=== PATIENT | female | born 1990 | race Caucasian/White ===

== ENCOUNTER 2019-11-09 17:43 | Inpatient (IN) | payer SELFPAY ==
[2019-11-09] VITALS (32 sets, daily range): BP systolic 92–124; BP diastolic 49–74; PULSE 53–90; RESP 14–22; TEMP 36.2–36.8; O2SAT 99–100; BMI 24.7
--- NOTE | 2019-11-09 20:10 | WPDANESEPP ---
Anes - Eval Pre Procedure Date/Time: 11/09/19 20:10 Pre Op Diagnosis: contractions Patient Data Age: 28 Gender: F Height: Weight: Last Vital Signs Temp 36.8 C 11/09/19 18:30 Pulse 90 11/09/19 18:30 BP 104/59 L 11/09/19 18:30 Allergies Allergy/AdvReac Type Severity Reaction Status Date / Time No Known Allergies Allergy Unverified 07/01/16 00:29 Patient hx anesthesia problems: none Family hx anesthesia problems: none Exam Day of Procedure 11/09/19 20:10 Patient weight: normal Heart: regular rate and rhythm Lungs: clear to auscultation Airway: Mallampati scale class 1 Neurological: alert and oriented
[2019-11-09] MEDS: LACTATED RINGERS 1,000 ML 125 ML IV CONT (20:20)
[2019-11-09 20:26] LABS: Basophils Absolute Auto 0.1 K/mm3 (0.0-0.1); Basophils Percent Auto 0.3 % (0.2-1.2); Eosinophils Absolute Auto 0.1 K/mm3 (0-0.3); Eosinophils Percent Auto 0.4 % (0-4.4); Hematocrit 34.6 % (37.0-47.0); Hemoglobin 11.9 g/dL (12.0-15.0); Immature Granulocyte Absolute 0.16 K/mm3 (0.00-0.031); Immature Granulocyte Percent A 0.9 % (0-0.5); Lymphocytes Percent Auto 20.7 % (18.3-44.2); Mean Corpuscular HGB Conc 34.4 g/dl (32-36); Mean Corpuscular Hemoglobin 29.7 pg (26-34); Mean Corpuscular Volume 86.3 fl (80-100); Mean Platelet Volume 11.5 fl (7.4-10.4); Monocytes Absolute Auto 1.1 K/mm3 (0.1-0.6); Monocytes Percent Auto 6.5 % (2.6-8.5); Neutrophils Percent Auto 71.2 % (45.5-73.1); Platelet Count Result 305 k/mm3 (150-375); Red Blood Count 4.01 M/mm3 (4.2-5.4); Red Cell Distribution Width 12.7 % (11.5-14.5); White Blood Count 16.9 K/mm3 (4.5-10.0)
--- NOTE | 2019-11-09 20:36 | WPDANESEPPF ---
Anes - Initial Pre Proc Eval Procedure: Operation Date: 11/09/19 20:30 Proposed Procedures p Section - Loly Manuel MD Date/Time: 11/09/19 20:36 Surgeon: Loly Manuel MD Pre Op Diagnosis: contractions Patient Data Age: 28 Gender: F Height: Weight: Last Vital Signs Temp 36.8 C 11/09/19 18:30 Pulse 90 11/09/19 18:30 BP 104/59 L 11/09/19 18:30 Allergies Allergy/AdvReac Type Severity Reaction Status Date / Time nitrofurantoin Allergy Severe Swelling Verified 11/09/19 20:32 [From Macrobid] of Lip/Tongue/Throat Laboratory Tests 11/09/19 11/09/19 11/09/19 20:14 20:14 20:14 WBC RBC Hgb Hct MCV MCH MCHC RDW Plt Count MPV Immature Gran % (Auto) Neut % (Auto) Lymph % (Auto) Ada % (Auto) Eos % (Auto) Baso % (Auto) Lymph # (Auto) Ada # (Auto) Eos # (Auto) Baso # (Auto) Abs Immat Gran (auto) Absolute Neuts (auto) Absolute Nucleated RBC Nucleated RBC % Urine Opiates Screen Urine Methadone Screen Ur Barbiturates Screen Ur Phencyclidine Scrn Ur Amphetamine Screen U Benzodiazepines Scrn Urine Cocaine Screen U Cannabinoids Screen RPR Pending Hep Bs Antigen Pending HIV 1&2 Ab/P24 Ag 4thGn Rubella IgG Antibody Pending 11/09/19 11/09/19 11/09/19 20:15 20:15 20:16 WBC 16.9 K/mm3 H K/mm3 (4.5-10.0) RBC 4.01 M/mm3 L M/mm3 (4.2-5.4) Hgb 11.9 g/dL L g/dL (12.0-15.0) Hct 34.6 % L % (37.0-47.0) MCV 86.3 fl fl (80-100) MCH 29.7 pg pg (26-34) MCHC 34.4 g/dl g/dl (32-36) RDW 12.7 % % (11.5-14.5) Plt Count 305 k/mm3 k/mm3 (150-375) MPV 11.5 fl H fl (7.4-10.4) Immature Gran % (Auto) 0.9 % H % (0-0.5) Neut % (Auto) 71.2 % % (45.5-73.1) Lymph % (Auto) 20.7 % % (18.3-44.2) Ada % (Auto) 6.5 % % (2.6-8.5) Eos % (Auto) 0.4 % % (0-4.4) Baso % (Auto) 0.3 % % (0.2-1.2) Lymph # (Auto) 3.50 K/mm3 H K/mm3 (0.9-3.2) Ada # (Auto) 1.1 K/mm3 H K/mm3 (0.1-0.6) Eos # (Auto) 0.1 K/mm3 K/mm3 (0-0.3) Baso # (Auto) 0.1 K/mm3 K/mm3 (0.0-0.1) Abs Immat Gran (auto) 0.16 K/mm3 H K/mm3 (0.00-0.031) Absolute Neuts (auto) 12.0 K/mm3 H K/mm3 (1.3-6.7) Absolute Nucleated RBC 0.0 K/mm3 K/mm3 (0.0-0.012) Nucleated RBC % 0.0 % % (0.0-0.2) Urine Opiates Screen Pending Urine Methadone Screen Pending Ur Barbiturates Screen Pending Ur Phencyclidine Scrn Pending Ur Amphetamine Screen Pending U Benzodiazepines Scrn Pending Urine Cocaine Screen Pending U Cannabinoids Screen Pending RPR Hep Bs Antigen HIV 1&2 Ab/P24 Ag 4thGn Pending Rubella IgG Antibody Patient hx anesthesia problems: none Family hx anesthesia problems: none Anes - Eval Final PreProcedure Day of Procedure 11/09/19 20:36 Patient weight: overweight Heart: regular rate and rhythm Lungs: clear to auscultation Airway: Mallampati scale Neurological: alert and oriented Last oral intake: 4 hours ASA classification: II Emergent: no Anesthetic plan: proceed Anesthesia type and monitoring: regional spinal and standard monitoring Informed Consent: The patient's anesthetic plan and its attendant risks and benefits were discussed with the patient/family/POA. Questions were solicited and answers provided
[2019-11-09 20:41] LABS: Amphetamine Screen Urine Negative (Negative); Barbiturate Screen Urine Negative (Negative); Benzodiazepines Screen Urine Negative (Negative); Cannabinoid Screen Urine Positive (Negative); Cocaine Screen Urine Negative (Negative); Methadone Screen Urine Negative (Negative); Opiate Screen Urine Negative (Negative); Phencyclidine Screen Urine Negative (Negative)
[2019-11-09] MEDS: ceFAZolin 2 GM/D5W 50 ML 2 GM/50 ML BAG IVPB (20:52)
[2019-11-09 21:18] LABS: HIV 1/2 Ab P24 Ag Result Negative (Negative)
[2019-11-09 21:25] LABS: Rubella IgG Antibody 57.2 IU/ML
[2019-11-09 21:27] LABS: Hepatitis B Surface Antigen Negative (Negative)
--- NOTE | 2019-11-09 21:46 | PM.IMHP ---
H&P: HPI History of Present Illness Chief complaint: contractions Narrative: Yu Sanchez is a 28 year old female comes to L & D at 37 weeks 1 day, confimred by TRIP of 11/26/2019. Pt receiving care with Dr Wood.Per pt she called Dr Wood office as she was experiencing contractions and was told to come to induce labor and delivery. When patient date to her cervical exam she was 1 cm dilated 80% effaced and-1 station. And when rechecked in 2 hour her cervix was 2.5 cm dilated. Patient had 2 successful vaginal delivery and 3 rd one was primary low transverse section for oligo and nonreassuring heart tracing and then she had of Successful TOLAC. Patient is desiring repeat low transverse section. Came and evaluated the patient and status is reassuring. the S patient is diet repeat low-transverse the procedure was discussed in detail as well as the risk of the procedure that is infection, bleeding which may require blood transfusion, injury to bowel bladder adjacent structures, anesthesia risk, can be life-threatening, respiratory risk to . patient voiced verbalized. All questions answered. Will proceed with repeat low transverse section. Review of Systems Constitutional: Constitutional: Reports no additional constitutional complaints Cardiovascular: Cardiovascular: Reports no additional cardiovascular complaints Respiratory: Respiratory: Reports no additional respiratory complaints Meds Home Medications and Allergies Allergies Allergy/AdvReac Type Severity Reaction Status Date / Time nitrofurantoin Allergy Severe Swelling Verified 11/09/19 20:32 [From Macrobid] of Lip/Tongue/Throat Vital Signs Vital Signs - 24 hr 11/09/19 18:30 Temperature 36.8 C Pulse Rate 90 Blood Pressure 104/59 L Exam Const: General: no acute distress H&P: Results Labs Labs: Short CBC 11/09/19 Range/Units 20:15 WBC 16.9 H (4.5-10.0) K/mm3 Hgb 11.9 L (12.0-15.0) g/dL Hct 34.6 L (37.0-47.0) % Plt Count 305 (150-375) k/mm3 Assessment and Plan Assessment and plan (1) Previous section: Code(s): Z98.891 - History of uterine scar from previous surgery Status: Acute Assessment and Plan: Proceed with Repeat section
--- NOTE | 2019-11-09 21:53 | PM.OBPRVD ---
OB - Delivery Note Procedure Delivery date: 11/09/19 Procedure: Procedures Operation Date: 11/09/19 20:30 Actual Procedures Side Surgeon p Section Not Applicable Loly Manuel MD events: Previous Intrapartal events: None Delivery monitor: external FHT Route of delivery: (Repeat) Estimated blood loss (mL): 360 Anesthesia type: Spinal Disposition: floor Complications: None Narrative: Patient was taken to the OR. patient was given spinal anesthesia for the patient was given dorsal supine position with leftward tilt . Mitchell catheter was introduced under sterile technique. Patient was prepped and draped in normal sterile fashion. time-out was performed with patient receive antibiotic as per protocol. Pfannenstiel skin incision was made on the previous scar with a scalpel and carried to the underlying layer of fascia. Fascia was incised in the midline and extended laterally with the help of Curiel scissors. Superior aspect of the fascial incision was grasped with the Marianne clamps elevated and underlying dissected off bluntly. Similarly the inferior aspect of the fascial incision was grasped with the Marianne clamps elevated underlying rectus muscle dissected off bluntly. rectus muscles in the midline and peritoneum identified and peritoneal cavity entered bluntly. the toenail cavity was extended superiorly inferiorly with good visualization of bladder. Bladder blade was inserted. Vesicouterine peritoneum identified and bladder flap created digitally. Bladder blade reinserted. Transverse incision was then made on the lower uterine segment and extended laterally bluntly. Amniotomy performed clear fluid noted. Infant head delivered atraumatically followed by the anterior and posterior shoulder and rest of the torso. There was a nuchal cord x1 which was easily reduced. Infant nose and mouth suctioned. Cord was clamped and cut and handed to the waiting nurses. Cord blood and gases were collected. Placenta was delivered manually and with the umbilical cord with 3 blood vessels. Uterus was exteriorized and cleared of all clots. Uterine incision was approximated with 0 Polysorb in a running locked fashion. Imbricating layer of 0 Polysorb was performed in the similar fashion. Excellent hemostasis noted at the incision site. Posterior cul-de-sac cleared of all clots. S entered into the abdomen. Lateral gutters cleared of all clots. One more time the uterine incision with excellent hemostasis. with vesicoperitoneum approximated with 3 0 Polysorb. Peritoneum approximated the 3 -O polysorb, Fascia approximated with PDS. Subcutaneous layer approximated with 3-o Polysorb and skin with 4 0 Biosyn and Dermabond. Patient tolerated procedure well. Sponge lap needle counts correct x2. Patient was taken to the recovery room awake in stable condition and to nursery. Baby Date of : 11/09/19 Weeks of gestation at delivery: 37 gender: Male Weight (pounds): 6 Weight (ounces): 6 presentation: vertex Placenta delivery description: Manual Removal cord vessel description: 3 Vessels and Nuchal Cord (x 1) score one minute: 8 score five minutes: 9
--- NOTE | 2019-11-09 22:01 | PM.OBDSVD ---
DS: Diagnosis Admitting Diagnosis Admitting Diagnosis: History of uterine scar from previous surgery OB - DS: Summary Hospital Course Time spent discussing smoking cessation with patient: 3 to 10 minutes OB Procedures : None OB Procedures Intrapartum: (Repeat) low cervical, transverse OB Procedures: : None Peripartum Data Delivery Method: Section Procedures: Procedures Operation Date: 11/09/19 20:30 Actual Procedures Side Surgeon p Section Not Applicable Loly Manuel MD complications: none Status at Discharge Functional status at discharge: independent ambulation Time Spent with Patient Time attestation: Total time spent providing and/or coordinating discharge services: Time spent: Less than 30 minutes Exam Const: General: comfortable and no acute distress Resp: Auscultation: clear to auscultation bilaterally Cardio: Rate: regular rate GI: GI Palp: Yes Soft to palpation Auscultation: normal bowel sounds Other: Incision: C/D/I Psych: Appearance: grossly normal DS: Data Data Completed and Pending Pending studies at discharge: Pending at discharge 11/09/19 21:07 Surgical [PTH] Routine Labs on day of discharge: Labs from last 24 hours 11/09/19 11/09/19 11/09/19 20:16 20:15 20:15 WBC RBC Hgb Hct MCV MCH MCHC RDW Plt Count MPV Immature Gran % (Auto) Neut % (Auto) Lymph % (Auto) [place] % (Auto) Eos % (Auto) Baso % (Auto) Lymph # (Auto) [place] # (Auto) Eos # (Auto) Baso # (Auto) Abs Immat Gran (auto) Absolute Neuts (auto) Absolute Nucleated RBC Nucleated RBC % Urine Opiates Screen Negative Urine Methadone Screen Negative Ur Barbiturates Screen Negative Ur Phencyclidine Scrn Negative Ur Amphetamine Screen Negative U Benzodiazepines Scrn Negative Urine Cocaine Screen Negative U Cannabinoids Screen Positive A RPR Hep Bs Antigen HIV 1&2 Ab/P24 Ag 4thGn Negative Rubella IgG Antibody Blood Type O Positive Antibody Screen Negative 11/09/19 11/09/19 11/09/19 20:15 20:14 20:14 WBC 16.9 H RBC 4.01 L Hgb 11.9 L Hct 34.6 L MCV 86.3 MCH 29.7 MCHC 34.4 RDW 12.7 Plt Count 305 MPV 11.5 H Immature Gran % (Auto) 0.9 H Neut % (Auto) 71.2 Lymph % (Auto) 20.7 [place]shaw % (Auto) 6.5 Eos % (Auto) 0.4 Baso % (Auto) 0.3 Lymph # (Auto) 3.50 H [place]shaw # (Auto) 1.1 H Eos # (Auto) 0.1 Baso # (Auto) 0.1 Abs Immat Gran (auto) 0.16 H Absolute Neuts (auto) 12.0 H Absolute Nucleated RBC 0.0 Nucleated RBC % 0.0 Urine Opiates Screen Urine Methadone Screen Ur Barbiturates Screen Ur Phencyclidine Scrn Ur Amphetamine Screen U Benzodiazepines Scrn Urine Cocaine Screen U Cannabinoids Screen RPR Hep Bs Antigen Negative HIV 1&2 Ab/P24 Ag 4thGn Rubella IgG Antibody 57.2 Blood Type Antibody Screen 11/09/19 20:14 WBC RBC Hgb Hct MCV MCH MCHC RDW Plt Count MPV Immature Gran % (Auto) Neut % (Auto) Lymph % (Auto) [place]shaw % (Auto) Eos % (Auto) Baso % (Auto) Lymph # (Auto) [place] # (Auto) Eos # (Auto) Baso # (Auto) Abs Immat Gran (auto) Absolute Neuts (auto) Absolute Nucleated RBC Nucleated RBC % Urine Opiates Screen Urine Methadone Screen Ur Barbiturates Screen Ur Phencyclidine Scrn Ur Amphetamine Screen U Benzodiazepines Scrn Urine Cocaine Screen U Cannabinoids Screen RPR Pending Hep Bs Antigen HIV 1&2 Ab/P24 Ag 4thGn Rubella IgG Antibody Blood Type Antibody Screen Discharge Plan Discharge Attending physician on discharge: Loly Manuel Discharging Clinician: Loly Manuel Patient Disposition: Home, Self-Care Activity: as tolerated and pelvic rest Diet: regular Wound Care Instructions: incision open to air Patient Instructi
[2019-11-09] MEDS: LACTATED RINGERS 1,000 ML 999 ML IV CONT (23:50)
[2019-11-10] VITALS (13 sets, daily range): BP systolic 91–113; BP diastolic 54–71; PULSE 56–89; RESP 16–20; TEMP 36.2–36.8; O2SAT 100
[2019-11-10] MEDS: KETOROLAC 30 MG/ML VIAL (*BKC) IV PUSH ×2 (00:13→05:52)
--- NOTE | 2019-11-10 00:25 | OBPPTRN ---
Patient transferred to post room #291 via stretcher. Support person present. Oriented to unit, room, information board, rooming in, admission packet and security measures. Patient verbalizes understanding. Infant with patient.
[2019-11-10 04:51] LABS: Basophils Absolute Auto 0.1 K/mm3 (0.0-0.1); Basophils Percent Auto 0.3 % (0.2-1.2); Eosinophils Absolute Auto 0.1 K/mm3 (0-0.3); Eosinophils Percent Auto 0.5 % (0-4.4); Hematocrit 29.2 % (37.0-47.0); Hemoglobin 9.5 g/dL (12.0-15.0); Immature Granulocyte Percent A 0.6 % (0-0.5); Lymphocytes Absolute Auto 2.38 K/mm3 (0.9-3.2); Lymphocytes Percent Auto 14.3 % (18.3-44.2); Mean Corpuscular HGB Conc 32.5 g/dl (32-36); Mean Corpuscular Hemoglobin 29.3 pg (26-34); Mean Corpuscular Volume 90.1 fl (80-100); Mean Platelet Volume 11.2 fl (7.4-10.4); Monocytes Absolute Auto 1.1 K/mm3 (0.1-0.6); Monocytes Percent Auto 6.6 % (2.6-8.5); Neutrophils Absolute Auto 12.9 K/mm3 (1.3-6.7); Neutrophils Percent Auto 77.7 % (45.5-73.1); Platelet Count Result 245 k/mm3 (150-375); Red Blood Count 3.24 M/mm3 (4.2-5.4); Red Cell Distribution Width 12.9 % (11.5-14.5); White Blood Count 16.6 K/mm3 (4.5-10.0)
[2019-11-10] MEDS: MULTIVIT/MIN/PREN/FOL AC/IRON TABLET 1 TAB PO (08:45)
[2019-11-10] MEDS: DOCUSATE SODIUM 100 MG CAPSULE PO ×2 (08:45→16:15)
[2019-11-10] MEDS: POLYSACCHARIDE IRON COMPLEX 150 MG CAPSULE PO ×2 (08:45→16:14)
[2019-11-10] MEDS: SIMETHICONE 80 MG TAB.CHEW PO ×2 (08:46→16:16)
--- NOTE | 2019-11-10 09:21 | WPDANLDPN2 ---
Anes-Prog Note L&D Date/Time: 11/10/19 09:21 Comfortable throughout: section Neuraxial method: spinal Epidural/Spinal procedure site: clean & non-tender Neuro status: Neuro function grossly intact. Cardiovascular status: normal Respiratory status: normal Airway patency: baseline Mental status: baseline Post-Op hydration status: normal Vital Signs: Last Vital Signs Temp 97.2 F L 11/10/19 04:30 Pulse 63 11/10/19 04:30 Resp 16 11/10/19 04:30 BP 93/57 L 11/10/19 04:30 Pulse Ox 100 11/10/19 04:30 I/O: Intake & Output 11/09/19 11/10/19 11/10/19 23:59 07:59 15:59 Intake Total 2050 500 Output Total 360 535 Balance 1690 -35 Patient feedback: Patient satisfied with anesthetic care.
--- NOTE | 2019-11-10 09:21 | WPDANLDNPN2 ---
Anes-Prog Note L&D-Neuraxial Date/Time: 11/10/19 09:21 Neuraxial medications: intrathecal PF morphine Opiod-related complaints: none Patient feedback: Patient satisfied with post-operative pain management.
[2019-11-10] MEDS: IBUPROFEN 600 MG TABLET PO ×2 (12:23→17:56)
--- NOTE | 2019-11-10 17:56 | PC.NURSE ---
Patient was given the opportunity to view the discharge video Mother & Baby Care, The First Two Weeks and to ask questions. Patient declined viewing the video and has been given the mother/baby guide for home reference.
[2019-11-11] MEDS: IBUPROFEN 600 MG TABLET PO ×2 (03:26→09:05)
[2019-11-11] MEDS: POLYSACCHARIDE IRON COMPLEX 150 MG CAPSULE PO (09:01)
[2019-11-11 09:05] VITALS: BP 104/65; PULSE 74; RESP 12; TEMP 36.6; O2SAT 99
--- NOTE | 2019-11-11 11:03 | P.PNOB_ITS ---
OB - PN: Subj Subjective Date/time seen: 11/11/19 11:03 Patient comments: no complaints, pain well controlled, tolerating diet and flatus present [place] baby status: doing well and bottle feeding well [place] feeding status: exclusively bottle feeding OB - PN: Obj Data Labs CBC & Chem 7: 11/10/19 04:44 OB - PN A/P Plan day: 2 Plan: discharge home, follow up 6 weeks and other (F/U in 1 week for incision checkup) Time Spent With Patient Time: Total time spent is greater than 50% in coordination of care (as documented) at patient's floor/unit and/or counseling patient: Time with patient: 15 - 25 minutes Review of Systems Constitutional: Constitutional: Reports no additional constitutional complaints Cardiovascular: Cardiovascular: Reports no additional cardiovascular complaints Respiratory: Respiratory: Reports no additional respiratory complaints Gastrointestinal: Gastrointestinal: Reports no additional gastrointestinal complaints Genitourinary: Genitourinary: Reports no additional female genitourinary complaints Exam Const: General: comfortable, no acute distress, alert and awake Resp: Effort & Inspection: normal respiratory effort Auscultation: clear to auscultation bilaterally Cardio: Rate: regular rate GI: Auscultation: normal bowel sounds Other: Incision: C/D/I
--- NOTE | 2019-11-11 18:19 | PC.NURSE ---
Patient was given the opportunity to view the discharge video Mother & Baby Care, The First Two Weeks and to ask questions. Patient declined viewing the video and has been given the mother/baby guide for home reference. She stated that she viewed it 1 year ago with her previous child.
[2019-11-12 07:40] LABS: Rapid Plasma Reagin Non-Reactive (NonReactive)
== END 2019-11-11 15:18 | disposition home or self-care (01) | DRG 540 ==
LOC: ANHLDR 20:41 → ANHOB2 11-10 00:42
PROVIDERS: Admitting Provider Obstetrics & Gynecology; PCP Emergency Medicine; Visit Provider Obstetrics & Gynecology
PROC: 10D00Z1 Extraction of Products of Conception, Low, Open Approach (ICD-10-PCS; CPT 59514; principal; 2019-11-09 20:30)
DX: O34.211 Maternal care for low transverse scar from previous cesarean delivery (principal); O69.81X0 Labor and delivery complicated by cord around neck, without compression, not applicable or unspecified; Z3A.37 37 weeks gestation of pregnancy; Z37.0 Single live birth
CPT/HCPCS: 36415; 80307; 85025; 86592; 86703; 86762; 86850; 86900; 86901; 87340; 88307; A9270; G0432; J0690; J1885; J2274; J2370; J2405; J2590; J3010; J7120

== ENCOUNTER → 2022-03-19 08:26 | Outpatient (CLI) | payer BC, MEDICAID, SELFPAY ==
--- NOTE | ~2022-03-19 | US_ITS ---
US right upper quadrant INDICATION: Enlarged liver, fatigue PROCEDURE: Realtime right upper abdominal ultrasound. COMPARISON: No prior studies for comparison. FINDINGS: The pancreas is normal without focal mass or pancreatic ductal dilation. Liver echotexture is normal without focal mass or intrahepatic biliary dilatation. There is normal directional flow i n the portal vein. The gallbladder is normal without stones, gallbladder wall thickening or pericholecystic fluid. Comm on bile duct measures 4 mm. No sonographic Hernandez's sign. IMPRESSION: 1: Normal limited abdominal ultrasound. Reviewed, dictated and finalized at location A.
== END ==
PROVIDERS: PCP Emergency Medicine; Visit Provider Emergency Medicine
DX: R16.0 Hepatomegaly, not elsewhere classified (principal)
CPT/HCPCS: 76705

== ENCOUNTER 2022-09-01 12:26 | Emergency (ER) | payer BC, MEDICAID, SELFPAY ==
--- NOTE | ~2022-09-01 | CT_ITS ---
EXAMINATION: CT abdomen pelvis w con DATE: 09/01/2022 14:48 INDICATION: RLQ tenderness, vomiting TECHNIQUE: Computed tomography (CT) of the abdomen and pelvis was performed with 100 mL Omnipaque-350 intravenous contrast. Automated exposure control and iterative reconstruction technique were employe d. The dose-length product was 245.37 mGy-cm. COMPARISON: None. FINDINGS: Lower thorax: Right middle lobe scar. Liver: Normal. Biliary/Gallbladder: Gallbladder is normal. No bile duct dilation. Pancreas: No mass or duct dilation. Spleen: Normal. Adrenals:No mass. Kidneys: No mass, stone, or hydronephrosis. GI tract: Mild distal esophageal and antral wall edema. No small or large bowel dilation. Normal appe ndix. Mesentery/Peritoneum: No ascites, mass, or free air. Retroperitoneum: No mass. Pelvis: Thin endometrial and outer myometrial uterine enhancement, with relative hypoenhancement of t he majority of the uterine parenchyma. Normal-appearing ovaries. The urinary bladder is partially dec ompressed. Soft Tissues: Soft tissues and body wall unremarkable. Bones: No acute osseous finding. IMPRESSION: Mild esophagitis and antral gastritis. Hepatomegaly. Uterine enhancement pattern likely normal and re lated to contrast and menstrual phase, unless there are gynecologic symptoms or abnormalities on pelv ic exam. Reviewed, dictated and finalized at location [facility] [employer] IMPRESSION: Mild esophagitis and antral gastritis. Hepatomegaly. Uterine enhancement patter n likely normal and related to contrast and menstrual phase, unless there are g ynecologic symptoms or abnormalities on pelvic exam.
[2022-09-01 12:28] VITALS: BP 106/63; PULSE 53; RESP 16; TEMP 36.8; O2SAT 100
[2022-09-01 12:42] LABS: Basophils Absolute Auto 0.1 K/mm3 (0.0-0.1); Basophils Percent Auto 0.5 % (0.2-1.2); Eosinophils Absolute Auto 0.1 K/mm3 (0-0.3); Eosinophils Percent Auto 0.5 % (0-4.4); Hematocrit 42.1 % (37.0-47.0); Hemoglobin 13.8 g/dL (12.0-15.0); Immature Granulocyte Absolute 0.05 K/mm3 (0.00-0.031); Immature Granulocyte Percent A 0.4 % (0-0.5); Lymphocytes Absolute Auto 2.98 K/mm3 (0.9-3.2); Lymphocytes Percent Auto 23.3 % (18.3-44.2); Mean Corpuscular HGB Conc 32.8 g/dl (32-36); Mean Corpuscular Hemoglobin 29.3 pg (26-34); Mean Corpuscular Volume 89.4 fl (80-100); Mean Platelet Volume 9.6 fl (7.4-10.4); Monocytes Absolute Auto 0.7 K/mm3 (0.1-0.6); Monocytes Percent Auto 5.7 % (2.6-8.5); Neutrophils Absolute Auto 8.9 K/mm3 (1.3-6.7); Neutrophils Percent Auto 69.6 % (45.5-73.1); Platelet Count Result 373 k/mm3 (150-375); Red Blood Count 4.71 M/mm3 (4.2-5.4); Red Cell Distribution Width 12.5 % (11.5-14.5); White Blood Count 12.8 K/mm3 (4.5-10.0)
[2022-09-01 12:48] VITALS: BP 105/65; PULSE 53; RESP 15; TEMP 36.8; O2SAT 100
[2022-09-01 12:57] LABS: Alanine Aminotransferase 15 U/L (6-35); Albumin Level 4.3 g/dL (3.5-5.1); Alkaline Phosphatase 52 U/L (38-126); Anion Gap 5 mmol/L (8-16); Aspartate Amino Transferase 11 U/L (14-36); Bilirubin,Total 0.9 mg/dL (0.2-1.3); Blood Urea Nitrogen 11 mg/dL (7-17); Calcium 8.9 mg/dL (8.4-10.2); Carbon Dioxide 27 mmol/L (22-30); Chloride 107 mmol/L (98-107); Estimated CRCL calculation 94 ml/min; Estimated Glomerular Filt Rate > 60; Glucose 88 mg/dL (65-110); Lipase 21 U/L (23-300); Sodium 139 mmol/L (137-145)
[2022-09-01 13:45] LABS: Appearance Urine Cloudy (Clear); Bacteria Urine 4+ /hpf; Bilirubin Urine Negative (Negative); Blood Urine 1+ (Negative); Color Urine Yellow (Yellow); Glucose Urine UA Negative (Negative); Ketones Urine Negative (Negative); Leukocyte Esterase Ur Negative LEU/UL (Negative); Nitrate Urine Negative (Negative); Non Pathogenic Casts 0-2; Protein Urine Negative (Negative); RBC Urine 0-2 /hpf (0-2); Specific Grav Ur 1.022 (1.001-1.035); Squamous Epithelial Cell Urine Many /hpf (Few); WBC Urine 0-5 /hpf
[2022-09-01 13:55] LABS: Add Urine Microscopic? YES
--- NOTE | 2022-09-01 14:04 | ED.ABDPAIN ---
HPI - Abdominal Pain General Chief Complaint: Abdominal Pain Stated Complaint: sent by PCP for RLQ pain Time Seen by Provider: 09/01/22 13:19 History of Present Illness HPI narrative: Patient is a 31-year-old female presenting with abdominal pain. Patient states over the last week she has had vomiting decreased appetite. States that she has also had right-sided abdominal pain. She went to her PCP today who advised that she come to the ER for evaluation due to concern for appendicitis. Patient states that she does have significant pain on the right side of her abdomen. She denies fevers or chills, headache, chest pain, shortness of breath, cough, diarrhea, constipation, dysuria. Related Data Home Medications Medication Instructions Recorded Confirmed budesonide-formoterol HFA 160 2 puff inhalation PRN 11/09/19 11/10/19 mcg-4.5 mcg/actuation aerosol inhaler (Symbicort) duloxetine 60 mg capsule,delayed 60 mg PO DAILY 11/09/19 11/09/19 release famotidine 20 mg tablet 20 mg PO BID 11/09/19 11/09/19 vit no.95-ferrous 1 tablet PO DAILY 11/09/19 11/09/19 fumarate 28 mg-folic acid 800 mcg tablet () vitamin B complex (B 1 tablet PO DAILY 11/09/19 11/09/19 Complex-Vitamin B12 tablet) Allergies Allergy/AdvReac Type Severity Reaction Status Date / Time nitrofurantoin Allergy Severe Swelling Verified 11/09/19 20:32 [From Macrobid] of Lip/Tongue/Throat Review of Systems Review of Systems: All systems reviewed & are unremarkable except as noted in HPI and below PMFSH Social History Social History Smoking packs per day: 0.3 Smoking cigarettes per day: 6.0 Smoking status: Current every day smoker Tobacco type: cigarettes Substance use: current Last use: 11/08/2019 Gender identity (if verbalized by the patient): Female Spiritual care concerns: No Exam Narrative: GENERAL: Appears mildly uncomfortable, nontoxic HEAD: Normocephalic, atraumatic. EYES: PERRLA and EOMI. ENT: Nares clear, no rhinorrhea or epistaxis. Mucous membranes moist. NECK: Supple. CHEST: Clear to auscultation. No respiratory distress. HEART: Regular rate and rhythm. Normal peripheral pulses. ABDOMEN: Soft, +RLQ tenderness, no guarding or rebound EXTREMITIES: Normal range of motion. No edema. SKIN: Warm, dry, no rash. NEURO: No focal deficits. Alert and oriented x3. PSYCH: Normal mood and affect. Course Vital Signs Vital signs: Vital Signs Temperature 98.2 F 09/01/22 12:28 Pulse Rate 53 L 09/01/22 12:28 Respiratory Rate 16 09/01/22 12:28 Blood Pressure 106/63 09/01/22 12:28 Pulse Oximetry 100 09/01/22 12:28 Oxygen Delivery Room Air 09/01/22 12:28 Temperature 97.9 F 09/01/22 18:00 Pulse Rate 63 09/01/22 18:00 Respiratory Rate 15 09/01/22 18:00 Blood Pressure 98/58 L 09/01/22 18:00 Pulse Oximetry 100 09/01/22 18:00 Oxygen Delivery Room Air 09/01/22 12:48 MDM - Abdominal Pain MDM Narrative Medical decision making narrative: Patient is a 31-year-old female presenting with right-sided abdominal pain and vomiting. Vitals within normal limits. Exam remarkable for the above. Blood work with leukocytosis. CT abdomen pelvis shows esophagitis and gastritis. No other acute abnormalities are noted. On reevaluation, the patient reports significant improvement in her symptoms. She is tolerating p.o. intake. She feels comfortable going home. We will start her on Pepcid and Zofran as needed. Advised that she follow-up with her PCP as well as DIRECT SERVICE PROVIDER. She states that she has an appointment with her DIRECT SERVICE PROVIDER in about a week. Also advised that she follow-up with GI. We will provide this number. Appropriate return precautions given. Discharged in stable condition. Differential Diagnosis Differential diagnosis: Likely abdominal pain, acute appendicitis, calculus of kidney, constipation, diverticulitis,
[2022-09-01] MEDS: ONDANSETRON INJ 4 MG/2 ML VIAL IV PUSH (14:17)
[2022-09-01] MEDS: HYDROmorphone HCL INJ (*CRX) 1 MG/ML SYR 0.5 MG IV PUSH (14:20)
[2022-09-01] MEDS: SODIUM CHLORIDE 0.9% IV 1,000 ML 999 ML IV CONT (14:22)
[2022-09-01 15:26] VITALS: BP 111/55; PULSE 55; RESP 14; TEMP 36.7; O2SAT 100
--- NOTE | 2022-09-01 15:28 | PC.NURSE ---
Patient's NS still running. Informed patient to keep her arm straight to have fluid flow through IV easier.
[2022-09-01] MEDS: FAMOTIDINE 20 MG/2 ML VIAL IV PUSH (15:43)
--- NOTE | 2022-09-01 17:45 | PC.NURSE ---
Patient ate cracker with peanut butter as well as a turkey sandwich with no complaints of N/V.
[2022-09-01 18:00] VITALS: BP 98/58; PULSE 63; RESP 15; TEMP 36.6; O2SAT 100
== END 2022-09-01 18:14 | disposition home or self-care (01) ==
PROVIDERS: Emergency Medicine; Emergency Provider Emergency Medicine; PCP Emergency Medicine
DX: K29.70 Gastritis, unspecified, without bleeding (principal); K20.90 Esophagitis, unspecified without bleeding; F17.210 Nicotine dependence, cigarettes, uncomplicated
CPT/HCPCS: 36415; 74177; 80053; 81001; 81025; 83690; 85025; 96361; 96374; 96375; 99284; J0131; J1170; J2405; J7030; Q9967

== ENCOUNTER 2022-09-17 09:12 | Outpatient (CLI) | payer BC, MEDICAID, SELFPAY ==
[2022-09-17 10:30] LABS: Hepatitis B Surface Antigen Negative (Negative)
[2022-09-17 10:35] LABS: HIV 1/2 Ab P24 Ag Result Negative (Negative)
[2022-09-17 10:36] LABS: HAV RESULT Negative (Negative); Hepatitis B Core IgM Result Negative (Negative)
[2022-09-17 10:47] LABS: Hepatitis C Virus Antibody Negative (Negative)
[2022-09-17 12:10] LABS: Rapid Plasma Reagin Non-Reactive (NonReactive)
== END 2022-09-17 09:13 | disposition home or self-care (01) ==
LOC: ANHLAB 09:14
PROVIDERS: PCP Emergency Medicine; Visit Provider Student in an Organized Health Care Education/Training Program
DX: Z11.3 Encounter for screening for infections with a predominantly sexual mode of transmission (principal)
CPT/HCPCS: 36415; 80074; 86592; 86695; 86696; 86703; G0432

== ENCOUNTER 2022-10-01 11:06 | Outpatient (CLI) | payer BC, MEDICAID, SELFPAY ==
[2022-10-01 11:22] LABS: Basophils Percent Auto 0.4 % (0.2-1.2); Eosinophils Percent Auto 0.4 % (0-4.4); Hematocrit 38.1 % (37.0-47.0); Hemoglobin 12.7 g/dL (12.0-15.0); Immature Granulocyte Absolute 0.04 K/mm3 (0.00-0.031); Immature Granulocyte Percent A 0.4 % (0-0.5); Lymphocytes Percent Auto 20.1 % (18.3-44.2); Mean Corpuscular HGB Conc 33.3 g/dl (32-36); Mean Corpuscular Hemoglobin 29.5 pg (26-34); Mean Corpuscular Volume 88.4 fl (80-100); Mean Platelet Volume 9.7 fl (7.4-10.4); Monocytes Absolute Auto 0.7 K/mm3 (0.1-0.6); Monocytes Percent Auto 6.5 % (2.6-8.5); Neutrophils Absolute Auto 7.2 K/mm3 (1.3-6.7); Neutrophils Percent Auto 72.2 % (45.5-73.1); Platelet Count Result 304 k/mm3 (150-375); Red Blood Count 4.31 M/mm3 (4.2-5.4); Red Cell Distribution Width 12.2 % (11.5-14.5)
[2022-10-01 15:53] LABS: Iron 78 ug/dL (37-170)
[2022-10-01 15:58] LABS: Alanine Aminotransferase 15 U/L (6-35); Albumin Level 4.3 g/dL (3.5-5.1); Alkaline Phosphatase 50 U/L (38-126); Anion Gap 4 mmol/L (8-16); Aspartate Amino Transferase 12 U/L (14-36); Bilirubin,Total 0.7 mg/dL (0.2-1.3); Blood Urea Nitrogen 11 mg/dL (7-17); Carbon Dioxide 31 mmol/L (22-30); Chloride 107 mmol/L (98-107); Estimated Glomerular Filt Rate > 60; Glucose 99 mg/dL (65-110); Potassium 3.4 mmol/L (3.4-5.0); Sodium 142 mmol/L (137-145)
[2022-10-01 16:20] LABS: Percent Iron Saturation 27 % (20-50)
[2022-10-01 16:30] LABS: Thyroid Stimulating Hormone 0.184 uIU/mL (0.465-4.680)
[2022-10-01 17:15] LABS: Folic Acid 11.2 ng/mL (2.76->20); Vitamin B12 > 1000.0 pg/mL (239-931)
[2022-10-06 10:58] LABS: Methylmalonic Acid 84 nmol/L (87-318)
== END 2022-10-01 11:07 | disposition home or self-care (01) ==
LOC: ANHLAB 11:09
PROVIDERS: PCP Emergency Medicine; Visit Provider Internal Medicine Hematology & Oncology
DX: D64.9 Anemia, unspecified (principal)
CPT/HCPCS: 36415; 80053; 82607; 82728; 82746; 83540; 83550; 83921; 84443; 85025

== ENCOUNTER 2022-10-08 01:50 | Day surgery (SDC) | payer BC, MEDICAID, SELFPAY ==
[2022-10-04 09:25] VITALS: BMI 23.1
--- NOTE | 2022-10-07 13:33 | PM.HPGS ---
History of Present Illness History of Present Illness Consent: Risks, benefits, and alternatives have been discussed and questions answered. Patient agrees to proceed with procedure. Chief complaint: Esophagitis, N&V, Abdom.Pain,Gastritis Narrative: Yu Sanchez is a 31 year old female Was being investigated for persistent nausea and vomiting. She had been seen in [facility] ER on September 01 with complaints of right sided abdominal pain with vomiting and decreased appetite.? CT of the abdomen showed esophagitis and gastritis.? She noted to have mild leukocytosis.? she was started on Pepcid and Zofran and instructed to follow-up with us.? states Zofran is working well for the vomiting however she continue as nausea. she complains of heartburn, reflux, with generalized abdominal pain She also has a prior history of reflux. When she was on omeprazole for years ago his seemed to help her. She does take Naprosyn as well as hydrocodone because of back and foot pain. She has lost weight, at least 10-14 lb. She states this is partly because of the nausea but also food gets stuck when she tries to eat, particularly bread and meat. Review of Systems Review of Systems: All systems reviewed & are unremarkable except as noted in HPI and below PMFSH Past Medical History Medical History Anemia Constipation Diabetes Esophagitis Heart palpitations Nausea & vomiting Upper abdominal pain Surgical History Surgical History History of delivery x2 Family History Family History Father Diabetes mellitus Heart disease Social History Social History Smoking packs per day: 1.5 Smoking cigarettes per day: 30.0 Years smoked: 15 Smoking pack-years: 22.50 Smoking status: Former smoker Tobacco type: cigarettes and e-cigarettes/vaping Alcohol intake: current Alcohol use details: occasional Substance use: current Substance use type: marijuana Other substance usage details: 4 X DAY Last use: 11/08/2019 Living arrangements: with family Occupation/Education: occupation Gender identity (if verbalized by the patient): Female Sexual Orientation (if Verbalized by the Patient): Bisexual Spiritual care concerns: No Meds Home Medications and Allergies Home Medications Medication Instructions Recorded Confirmed Type budesonide-formoterol HFA 160 2 puff inhalation BID 11/09/19 10/04/22 History mcg-4.5 mcg/actuation aerosol inhaler (Symbicort) duloxetine 60 mg capsule,delayed 60 mg PO DAILY 11/09/19 10/04/22 History release famotidine 20 mg tablet 20 mg PO BID 11/09/19 10/04/22 History vitamin B complex (B 1 tablet PO DAILY 11/09/19 10/04/22 History Complex-Vitamin B12 tablet) hydrocodone 10 mg-acetaminophen 1 tab PO Q3H PRN Pain Rated 7-10 11/11/19 10/04/22 Rx 325 mg tablet ([place]) #20 tabs polysaccharide iron complex 150 mg 150 mg PO BIDWM #60 caps 11/11/19 10/04/22 Rx iron capsule ondansetron 4 mg disintegrating 4 mg PO Q8H PRN nausea and 09/01/22 10/04/22 Rx tablet vomiting #14 tabs albuterol sulfate 90 mcg/actuation 1 puff inhalation Q4-6H PRN 09/10/22 10/04/22 History aerosol inhaler Shortness Of Breath Or Wheezing metoprolol succinate 50 mg 50 mg PO HS 09/10/22 10/04/22 History tablet,extended release 24 hr blood-gluc meter-wrist BP mntr 09/17/22 09/17/22 History (2Tek Glucose/Blood Pressure kit) fluticasone propionate 50 1 spray intranasal DAILY 09/17/22 10/04/22 History mcg/actuation nasal spray,suspension (Flonase Allergy Relief) linaclotide 145 mcg capsule 145 mcg PO DAILY 1 month #30 caps 09/17/22 10/04/22 Rx (Linzess) omeprazole 40 mg capsule,delayed 40 mg PO DAILY 1 month #30 caps 09/17/22 10/04/22 Rx release tramadol 50 m
[2022-10-08 13:17] VITALS: BP 98/61; PULSE 61; RESP 18; TEMP 36.2; O2SAT 100
[2022-10-08] MEDS: LACTATED RINGERS 1,000 ML 150 ML IV CONT (13:20)
--- NOTE | 2022-10-08 13:21 | WPDANESEPPF ---
Anes - Initial Pre Proc Eval Procedure: Operation Date: 10/08/22 15:00 Proposed Procedures p Esophagogastroduodenoscopy - Cruz Cunha MD Date/Time: 10/08/22 13:21 Surgeon: Cruz Cunha MD Pre Op Diagnosis: Esophagitis, N&V, Abdom.Pain,Gastritis Patient Data Age: 31 Gender: F Height: 1.7 m Weight: 66.2 kg Last Vital Signs Temp 97.2 F L 10/08/22 13:17 Pulse 61 10/08/22 13:17 Resp 18 10/08/22 13:17 BP 98/61 L 10/08/22 13:17 Pulse Ox 100 10/08/22 13:17 O2 Del Method Room Air 10/08/22 13:17 Allergies Allergy/AdvReac Type Severity Reaction Status Date / Time nitrofurantoin Allergy Severe Swelling Verified 10/08/22 13:04 [From Macrobid] of Lip/Tongue/Throat Home Medications Medication Instructions Recorded Confirmed Type budesonide-formoterol HFA 160 2 puff inhalation BID 11/09/19 10/04/22 History mcg-4.5 mcg/actuation aerosol inhaler (Symbicort) duloxetine 60 mg capsule,delayed 60 mg PO DAILY 11/09/19 10/04/22 History release famotidine 20 mg tablet 20 mg PO BID 11/09/19 10/04/22 History vitamin B complex (B 1 tablet PO DAILY 11/09/19 10/04/22 History Complex-Vitamin B12 tablet) hydrocodone 10 mg-acetaminophen 1 tab PO Q3H PRN Pain Rated 7-10 11/11/19 10/04/22 Rx 325 mg tablet ([place]) #20 tabs polysaccharide iron complex 150 mg 150 mg PO BIDWM #60 caps 11/11/19 10/04/22 Rx iron capsule ondansetron 4 mg disintegrating 4 mg PO Q8H PRN nausea and 09/01/22 10/04/22 Rx tablet vomiting #14 tabs albuterol sulfate 90 mcg/actuation 1 puff inhalation Q4-6H PRN 09/10/22 10/04/22 History aerosol inhaler Shortness Of Breath Or Wheezing metoprolol succinate 50 mg 50 mg PO HS 09/10/22 10/04/22 History tablet,extended release 24 hr blood-gluc meter-wrist BP mntr 09/17/22 09/17/22 History (2Tek Glucose/Blood Pressure kit) fluticasone propionate 50 1 spray intranasal DAILY 09/17/22 10/04/22 History mcg/actuation nasal spray,suspension (Flonase Allergy Relief) linaclotide 145 mcg capsule 145 mcg PO DAILY 1 month #30 caps 09/17/22 10/04/22 Rx (Linzess) omeprazole 40 mg capsule,delayed 40 mg PO DAILY 1 month #30 caps 09/17/22 10/04/22 Rx release tramadol 50 mg tablet 50 mg PO Q4H PRN Pain 09/17/22 10/04/22 History valacyclovir 500 mg tablet 500 mg PO DAILY #60 tabs 09/21/22 10/04/22 Rx (Valtrex) ergocalciferol (vitamin D2) 1,250 50,000 mcg PO WEEKLY 10/04/22 10/04/22 History mcg (50,000 unit) capsule Patient hx anesthesia problems: none Family hx anesthesia problems: none Results Review: All pre-operative results and documents have been reviewed as part of the pre-operative evaluation. [facility] Past Medical History Medical History (Updated 09/17/22 @ 13:40 by SHANTEL Zarate) Anemia Constipation Diabetes Esophagitis Heart palpitations Nausea & vomiting Upper abdominal pain Surgical History Surgical History (Updated 09/10/22 @ 09:07 by Karolyn Marino CMA) History of delivery x2 Family History Family History (Updated 09/10/22 @ 09:07 by Karolyn Marino CMA) Father Diabetes mellitus Heart disease Social History Social History (Updated 09/10/22 @ 09:08 by Karolyn Marino CMA) Smoking packs per day: 1.5 Smoking cigarettes per day: 30.0 Years smoked: 15 Smoking pack-years: 22.50 Smoking status: Former smoker Tobacco type: cigarettes and e-cigarettes/vaping Alcohol intake: current Alcohol use details: occasional Substance use: current Substance use type: marijuana Other substance usage details: 4 X DAY Last use: 11/08/2019 Living arrangements: with family Occupation/Education: occupation Gender identity (if verbalized by the patient): Female Sexual Orientation (if Verbalized by the Patient): Bisexual Spiritual care concerns: No Anes - Eval Final PreProcedure Day of Procedure 10/08/22 13:21 Patient weight: normal Heart: regular rate and r
[2022-10-08] MEDS: BENZOCAINE (*SP) 60 ML SPRAY CAN (HURRICAINE) 1 SPRAY MUCOUS MEM (14:10)
[2022-10-08 14:21] VITALS: BP 90/49; PULSE 67; RESP 16; O2SAT 96
[2022-10-08 14:31] VITALS: BP 94/52; PULSE 60; RESP 14; O2SAT 97
[2022-10-08 14:41] VITALS: BP 96/54; PULSE 62; RESP 15; O2SAT 98
== END 2022-10-08 14:49 | disposition home or self-care (01) ==
PROVIDERS: PCP Emergency Medicine; Visit Provider Internal Medicine Gastroenterology
PROC: 0DJ08ZZ Inspection of Upper Intestinal Tract, Via Natural or Artificial Opening Endoscopic (ICD-10-PCS; CPT 43235; principal; 2022-10-08 15:00)
DX: R11.0 Nausea (principal); R63.4 Abnormal weight loss; R13.10 Dysphagia, unspecified; Z87.19 Personal history of other diseases of the digestive system; D64.9 Anemia, unspecified; K59.00 Constipation, unspecified; Z87.891 Personal history of nicotine dependence; F12.90 Cannabis use, unspecified, uncomplicated; Z79.51 Long term (current) use of inhaled steroids; Z79.891 Long term (current) use of opiate analgesic; Z68.22 Body mass index [BMI] 22.0-22.9, adult
CPT/HCPCS: 43239; 87081; 88305; J2704; J7120

== ENCOUNTER 2022-11-18 01:10 | Day surgery (SDC) | payer BC, MEDICAID, SELFPAY ==
[2022-11-15 10:48] VITALS: BMI 24.3
--- NOTE | 2022-11-15 10:56 | PC.NURSE ---
Report to the Outpatient Waiting Room, entrance under the green pavilion located off [facility], at time 1230 on date 11/18/22. Planned Procedure Time: 1430. Time changes happen often and if your time is changed the preop area will call you the afternoon before. - You and your visitor will be asked to self-screen and do not enter if you have any COVID symptoms. - A mask is optional within the hospital at this time. Patients may have clear liquids (water, carbonated beverages, clear teas, apple juice) until 3 hours prior to surgery with a maximum of 20 ounces. - No food from midnight until time of surgery Take the following medications with a SIP of water the morning of surgery: INHALERS, DULOXETINE, VALACYCLOVIR, NORCO/TRAMADOL IF NEEDED DO NOT STOP ANY OF YOUR OTHER PRESCRIPTION MEDICATIONS PRIOR TO SURGERY EXCEPT THE FOLLOWING Medications to discontinue per physician: VITAMINS/SUPPLEMENTS Date to take last dose: NO MORE UNTIL AFTER SURGERY Please no make-up, nail gibraltarian, hairspray, perfume, deodorant, or body powder the day of surgery. No jewelry (including any body piercings) or valuables the day of surgery, leave them at home. Please take a shower or bath the night before, or the morning of, surgery with an antibacterial soap. Wear comfortable, loose fitting clothing. - Jewelry must be removed prior to entering the operating room. Rings and piercings that are not removed may be cut off. - The hospital will not accept responsibility for valuables. - Please leave all valuables, including medications, at home the day of surgery. If you are going home after surgery, a licensed train driver must drive you home. - NO public transportation without another adult if you receive anesthesia. - We recommend that an adult stay with you for 24 hours following discharge. - We also recommend that you do not drive, make important decision, drink alcoholic beverages, or take any drugs that were not prescribed by your health care provider for at least 24 hours after your discharge time. Follow any additional instructions given to you from your surgeon. If you or anyone in your household have experienced Covid symptoms in the past week, please notify your surgeon or the nurse liaison at the phone number below for possible testing. Telephone instructions given to PT - DANNA HANNA and asked if any additional questions and then verbalized understanding. Patient advised to call surgeon office or pre surgery nurse liaison [phone] if any additional questions.
--- NOTE | 2022-11-17 14:18 | WPDANESEPPF ---
Anes - Initial Pre Proc Eval Procedure: Operation Date: 11/18/22 14:30 Proposed Procedures p Hysteroscopy Dilation and Curettage, Leslie Endometrial Ablation - Abdiaziz Jiang MD s Bilateral Laparoscopic Salpingectomy - Abdiaziz Jiang MD Date/Time: 11/17/22 14:18 Surgeon: Abdiaziz Jiang MD Pre Op Diagnosis: abnormal uterine bleeding, desires sterilization Patient Data Age: 31 Gender: F Height: 1.68 m Weight: 68.5 kg Allergies Allergy/AdvReac Type Severity Reaction Status Date / Time nitrofurantoin Allergy Severe Swelling Verified 11/18/22 13:00 [From Macrobid] of Lip/Tongue/Throat Home Medications Medication Instructions Recorded Confirmed Type budesonide-formoterol HFA 160 2 puff inhalation BID 11/09/19 11/15/22 History mcg-4.5 mcg/actuation aerosol inhaler (Symbicort) duloxetine 60 mg capsule,delayed 60 mg PO DAILY 11/09/19 11/15/22 History release famotidine 20 mg tablet 20 mg PO BID 11/09/19 11/15/22 History vitamin B complex (B 1 tablet PO DAILY 11/09/19 11/15/22 History Complex-Vitamin B12 tablet) hydrocodone 10 mg-acetaminophen 1 tab PO Q3H PRN Pain Rated 7-10 11/11/19 11/15/22 Rx 325 mg tablet ([place]) #20 tabs albuterol sulfate 90 mcg/actuation 1 puff inhalation Q4-6H PRN 09/10/22 11/15/22 History aerosol inhaler Shortness Of Breath Or Wheezing metoprolol succinate 50 mg 50 mg PO HS 09/10/22 11/15/22 History tablet,extended release 24 hr blood-gluc meter-wrist BP mntr 09/17/22 10/29/22 History (2Tek Glucose/Blood Pressure kit) fluticasone propionate 50 1 spray intranasal DAILY 09/17/22 11/15/22 History mcg/actuation nasal spray,suspension (Flonase Allergy Relief) omeprazole 40 mg capsule,delayed 40 mg PO DAILY 1 month #30 caps 09/17/22 11/15/22 Rx release valacyclovir 500 mg tablet 500 mg PO DAILY #60 tabs 09/21/22 11/15/22 Rx (Valtrex) ergocalciferol (vitamin D2) 1,250 50,000 mcg PO WEEKLY 10/04/22 11/15/22 History mcg (50,000 unit) capsule ondansetron HCl 4 mg tablet 4 mg PO Q8H PRN nausea and 10/08/22 11/15/22 Rx vomiting #30 tabs cyclobenzaprine 10 mg tablet 10 mg PO HS 10/13/22 11/15/22 History ferrous sulfate 325 mg (65 mg 325 mg PO BID 10/13/22 11/15/22 History iron) tablet tramadol 50 mg tablet 50 mg PO BID PRN Pain 10/13/22 11/15/22 History linaclotide 72 mcg capsule 72 mcg PO DAILY 1 month #30 caps 10/29/22 11/15/22 Rx (Linzess) acetaminophen 500 mg tablet 500 mg PO Q6H PRN pain #30 tabs 11/18/22 Rx ibuprofen 600 mg tablet 600 mg PO Q6H PRN pain #30 tabs 11/18/22 Rx Patient hx anesthesia problems: none Family hx anesthesia problems: none Results Review: All pre-operative results and documents have been reviewed as part of the pre-operative evaluation. [facility] Past Medical History Medical History (Updated 11/18/22 @ 07:39 by Abdiaziz Jiang MD) Anemia Bipolar 1 disorder Constipation COPD (chronic obstructive pulmonary disease) Diabetes Esophagitis GERD (gastroesophageal reflux disease) Heart palpitations Nausea & vomiting Thyroid activity decreased Upper abdominal pain Surgical History Surgical History History of delivery x2 Family History Family History Father Diabetes mellitus Heart disease Social History Social History Smoking packs per day: 1.5 Smoking cigarettes per day: 30.0 Years smoked: 15 Smoking pack-years: 22.50 Smoking status: Former smoker Tobacco type: cigarettes Smoking end date: 03/27/22 Alcohol intake: current Alcohol use details: RARE Substance use: current Substance use type: marijuana Other substance usage details: 4 X DAY Last use: 11/08/2019 Living arrangements: with family Occupation/Education: occupation Gender identity (if verbalized by the patient): F
[2022-11-18] VITALS (9 sets, daily range): BP systolic 100–118; BP diastolic 47–77; PULSE 50–66; RESP 11–18; TEMP 36.6; O2SAT 98–100
--- NOTE | 2022-11-18 07:38 | PM.IMHP ---
H&P: HPI History of Present Illness Date/Time: 11/18/22 07:38 Chief Complaint: Abnormal uterine bleeding Narrative: 31-year-old female presents hysteroscopy, D&C, endometrial ablation and laparoscopic bilateral salpingectomy for abnormal uterine bleeding and permanent sterilization.? Patient initially presented with a chronic history of heavy prolonged menses.? Patient states he has a regular monthly cycle.? She states her bleeding lasts 5-7 days.? Patient states she has to change a pad or tampon every hour.? Patient has a enamel sprayer to manage her chronic anemia.? Patient states her enamel sprayer recommended hysterectomy for management of heavy menses.? patient's menses are so heavy they are leading to symptomatic anemia. Patient is requiring iron transfusions. Review of Systems Cardiovascular: Cardiovascular: Denies chest pain, Denies leg edema, Denies palpitations, Denies dyspnea and Denies dyspnea on exertion Respiratory: Respiratory: Denies cough, Denies dyspnea and Denies dyspnea on exertion Gastrointestinal: Gastrointestinal: Denies abdominal pain, Denies constipation, Denies diarrhea, Denies nausea and Denies vomiting Genitourinary: Genitourinary: Denies hematuria, Denies urinary frequency, Denies dysuria, Denies pelvic pain, Denies urinary incontinence and Denies vaginal discharge Neurologic: Reports system reviewed and no additional complaints, except as documented Psychiatric: Psychiatric: Reports no additional psychiatric complaints Endocrine: Endocrine: Denies palpitations [facility] Past Medical History Medical History (Updated 11/18/22 @ 07:39 by Abdiaziz Jiang MD) Anemia Bipolar 1 disorder Constipation COPD (chronic obstructive pulmonary disease) Diabetes Esophagitis GERD (gastroesophageal reflux disease) Heart palpitations Nausea & vomiting Thyroid activity decreased Upper abdominal pain Surgical History Surgical History History of delivery x2 Family History Family History Father Diabetes mellitus Heart disease Social History Social History Smoking packs per day: 1.5 Smoking cigarettes per day: 30.0 Years smoked: 15 Smoking pack-years: 22.50 Smoking status: Former smoker Tobacco type: cigarettes Smoking end date: 03/27/22 Alcohol intake: current Alcohol use details: RARE Substance use: current Substance use type: marijuana Other substance usage details: 4 X DAY Last use: 11/08/2019 Living arrangements: with family Occupation/Education: occupation Gender identity (if verbalized by the patient): Female Sexual Orientation (if Verbalized by the Patient): Bisexual Spiritual care concerns: No Meds Home Medications and Allergies Home Medications Medication Instructions Recorded Confirmed Type budesonide-formoterol HFA 160 2 puff inhalation BID 11/09/19 11/15/22 History mcg-4.5 mcg/actuation aerosol inhaler (Symbicort) duloxetine 60 mg capsule,delayed 60 mg PO DAILY 11/09/19 11/15/22 History release famotidine 20 mg tablet 20 mg PO BID 11/09/19 11/15/22 History vitamin B complex (B 1 tablet PO DAILY 11/09/19 11/15/22 History Complex-Vitamin B12 tablet) hydrocodone 10 mg-acetaminophen 1 tab PO Q3H PRN Pain Rated 7-10 11/11/19 11/15/22 Rx 325 mg tablet ([place]) #20 tabs albuterol sulfate 90 mcg/actuation 1 puff inhalation Q4-6H PRN 09/10/22 11/15/22 History aerosol inhaler Shortness Of Breath Or Wheezing metoprolol succinate 50 mg 50 mg PO HS 09/10/22 11/15/22 History tablet,extended release 24 hr blood-gluc meter-wrist BP mntr 09/17/22 10/29/22 History (2Tek Glucose/Blood Pressure kit) fluticasone propionate 50 1 spray intranasal DAILY 09/17/22 11/15/22 History mcg/actuation nasal spray,suspension (Flonase Allergy Relief) omeprazole 40 mg
--- NOTE | 2022-11-18 07:42 | WPDHPUPDATE1 ---
History and Physical Update Update Date/Time: 11/18/22 07:42 History and Physical has been reviewed, including an updated exam of the patient. There are NO changes in the patient's condition. Risks, benefits, and alternatives have been discussed and questions answered. Patient agrees to proceed with procedure.
[2022-11-18] MEDS: LACTATED RINGERS 1,000 ML 30 ML IV CONT ×2 (12:30→15:00)
[2022-11-18 13:00] LABS: Glucose Point of Care 80 mg/dl (65-105)
[2022-11-18] MEDS: ACETAMINOPHEN 500 MG TABLET 1000 MG PO (13:00)
[2022-11-18] MEDS: KETOROLAC 15 MG/ML VIAL (*BKC) IV PUSH (13:00)
[2022-11-18] MEDS: LIDOCAINE HCL 1% LOCAL INJ 20 ML VIAL 30 ML INFILTRATE (15:39)
--- NOTE | 2022-11-18 15:58 | W.PM.PROC2 ---
Procedure Note - Detailed Date of Procedure 11/18/22 Pre-op Diagnosis abnormal uterine bleeding, desires sterilization Post-op Diagnosis Same Procedure Performed laparoscopic bilateral salpingectomy hysteroscopy D&C endometrial ablation Surgeon Abdiaziz Jiang MD Anesthesia General Indications desires permanent sterilization abnormal uterine bleeding Findings normal appearing uterus, bilateral fallopian tubes and ovaries Description of Procedure the patient was taken to the operating room where general endotracheal anesthesia was undertaken and found to be adequate. She was then prepped and draped in the dorsal lithotomy position. A pre-operative team brief and time-out were completed. A catheter was placed to drain the bladder. Speculum was placed in the vagina and the cervix was identified. An acorn uterine manipulator was placed as well as single-tooth tenaculum on the anterior lip of the cervix. Attention was then turned to the abdomen which was anesthetized umbilical he with injected anesthetic. A 5 mm skin incision was made in the umbilicus. A 5 mm optical trocar was then placed with direct visualization of the abdominal layers during placement. The trocar stylette was removed and the camera was used to verify intra-abdominal placement.jens was used to verify intra-abdominal placement. CO2 insufflation was then connected and The abdominal cavity was insufflated. General abdominal and pelvic survey was performed. Two other laparoscopic port site incisions were made approximately 2 cm superior and medial of the ASIS bilaterally. Both fallopian tubes were inspected and identified out to the level of the fimbriae. The Fimbriated end of the left fallopian tube was then grasped with a blunt grasper. the fallopian tube was then transected along its inferior aspect along the mesosalpinx with the LigaSure device. Transection was carried out to the fallopian tubes insertion into the uterine fundus. The fallopian tube was then completely transected from the uterus using the LigaSure device. This procedure was repeated for the right fallopian tube. Good hemostasis was maintained throughout. The transected fallopian tubes were removed through the abdomen through the 5 mm laparoscopic port. The surgical field was inspected and again could hemostasis was noted. At this point the procedure was ended. The abdomen was desufflated. All laparoscopic ports were removed from the abdomen. Abdominal incisions were closed with 4-0 Vicryl in a subcuticular fashion.. The acorn manipulator and tenaculum weere removed from the vagina. The cervix was inspected and good hemostasis was obtained. Attention was then turned to the pelvis for the hysteroscopic portion of the case. The uterus sounded to 8.5 cm. The cervix was dilated with sequential Jo dilators. Hysteroscopy, using a normal saline medium, was performed and showed the above findings. Sharp uterine curettage was then performed and tissue placed on Telfa. The Leslie device was set to a depth of 6 cm. The device was inserted into the uterus and deployed. Good fit was reassured by the device indicator. The cervical balloon was insufflated to ensure a good seal. Uterine integrity test was performed by the Leslie device and was successful. The device was then activated. The entire ablation procedure lasted 120 seconds. The cervical balloon was desufflated and the device was removed from the uterus. The hysteroscope was re-introduced to ensure adequate tissue ablation.? The tenaculum was removed and hemostasis was observed. The patient tolerated the procedure well. Sponge, lap, and needle counts were correct. Sponge, lap and needle counts were correct. The patient tolerated the procedure well. The patient was taken out of dorsal lithotomy. anesthesia was reversed. The patient was taken to PACU in stable condition. Estimated Blood Loss 10 Urine Output 100 Drains No Packing
[2022-11-18] MEDS: fentaNYL CITRATE INJ (*CRX) 100 MCG/2 ML VIAL 25 MCG IV PUSH ×6 (16:37→17:03)
[2022-11-18] MEDS: oxyCODONE HCL (*CRX) 5 MG TAB IR PO (17:23)
== END 2022-11-18 18:11 | disposition home or self-care (01) ==
PROVIDERS: PCP Emergency Medicine; Visit Provider Student in an Organized Health Care Education/Training Program
PROC: 0U5B8ZZ Destruction of Endometrium, Via Natural or Artificial Opening Endoscopic (ICD-10-PCS; CPT 58563; principal; 2022-11-18 14:30)
PROC: (CPT 49320; 2022-11-18 14:30)
DX: N93.9 Abnormal uterine and vaginal bleeding, unspecified (principal); Z30.2 Encounter for sterilization; D64.9 Anemia, unspecified; J44.9 Chronic obstructive pulmonary disease, unspecified; F31.9 Bipolar disorder, unspecified; E11.9 Type 2 diabetes mellitus without complications; K21.9 Gastro-esophageal reflux disease without esophagitis; K59.00 Constipation, unspecified; Z79.51 Long term (current) use of inhaled steroids; Z79.891 Long term (current) use of opiate analgesic; Z87.891 Personal history of nicotine dependence; F12.90 Cannabis use, unspecified, uncomplicated
CPT/HCPCS: 58661; 58563; 82948; 88302; 88305; A9270; J1100; J1885; J2250; J2704; J2710; J3010; J7030; J7120

== ENCOUNTER 2023-03-01 20:49 | Emergency (ER) | payer BC, MEDICAID, SELFPAY ==
[2023-03-01 21:12] VITALS: BP 108/60; PULSE 63; RESP 18; TEMP 36.4; O2SAT 100
--- NOTE | 2023-03-02 04:34 | PC.NURSE ---
no answer at triage
== END 2023-03-02 05:24 | disposition left against medical advice (07) ==
LOC: ANHED 03-02 05:08
PROVIDERS: PCP Emergency Medicine
DX: R05.9 Cough, unspecified (principal)
CPT/HCPCS: 99199

== ENCOUNTER 2023-07-13 15:56 | Emergency (ER) | payer BC, MEDICAID, SELFPAY ==
--- NOTE | ~2023-07-13 | CT_ITS ---
EXAMINATION: CT brain wo con DATE: 07/13/2023 22:53 INDICATION: Headache. TECHNIQUE: Computed tomography (CT) of the head was performed without intravenous contrast. The mA wa s adjusted according to patient size. Iterative reconstruction technique was employed. The dose-lengt h product was 529.67 mGy-cm. COMPARISON: None FINDINGS: There is no intracranial hemorrhage, acute infarction, or abnormal intracranial mass lesion . The ventricles are normal in size. The paranasal sinuses are clear. The mastoid air cells are benigno l. IMPRESSION: 1. Normal brain. Reviewed, dictated and finalized at location E. ANESTHESIA MANAGER IMPRESSION: 1. Normal brain.
--- NOTE | ~2023-07-13 | XR_ITS ---
EXAMINATION: XR chest 2V DATE: 07/13/2023 23:02 INDICATION: Arm pain. TECHNIQUE: Frontal and lateral views of the chest were obtained. COMPARISON: Chest 2 views 03/14/16, CT abdomen and pelvis 09/01/2022 FINDINGS: There is no pneumonia, pleural effusion, or pneumothorax. The heart size is normal. IMPRESSION: 1. No acute cardiopulmonary disease. Reviewed, dictated and finalized at location E. HER TRIMMER
--- NOTE | ~2023-07-13 | CT_ITS ---
EXAMINATION: CT cervical spine wo con DATE: 07/13/2023 22:56 INDICATION: Neck pain. TECHNIQUE: Computed tomography (CT) of the cervical spine was performed without intravenous contrast. Automated exposure control and iterative reconstruction technique were employed. The dose-length pro duct was 470.46 mGy-cm. COMPARISON: None FINDINGS: There is 7 degrees dextrocurvature of cervical spine. There is mild kyphosis of cervical sp ine. Vertebral body heights and intervertebral disc heights are normal. The following disc levels are specifically discussed: C2-C3: There is no uncovertebral joint osteoarthritis. There is mild bilateral facet joint osteoarthr itis. There is no neural foraminal stenosis. There is no central canal stenosis. C3-C4: There is no uncovertebral joint osteoarthritis. There is mild bilateral facet joint osteoarthr itis. There is no neural foraminal stenosis. There is no central canal stenosis. C4-C5: There is no uncovertebral joint osteoarthritis. There is mild bilateral facet joint osteoarthr itis. There is no neural foraminal stenosis. There is no central canal stenosis. C5-C6: There is no uncovertebral joint osteoarthritis. There is mild bilateral facet joint osteoarthr itis. There is no neural foraminal stenosis. There is no central canal stenosis. C6-C7: There is no uncovertebral joint osteoarthritis. There is mild bilateral facet joint osteoarthr itis. There is no neural foraminal stenosis. There is no central canal stenosis. C7-T1: There is no uncovertebral joint osteoarthritis. There is mild bilateral facet joint osteoarthr itis. There is no neural foraminal stenosis. There is no central canal stenosis. IMPRESSION: 1. Mild cervical facet joint osteoarthritis. Reviewed, dictated and finalized at location E. ECT CONTROLS SPECIALIST
[2023-07-13 16:29] VITALS: BP 128/79; PULSE 68; RESP 20; TEMP 36.6; O2SAT 100
[2023-07-13 20:44] VITALS: BP 114/78; PULSE 52; RESP 15; O2SAT 100
--- NOTE | 2023-07-13 22:38 | ECG_ITS ---
Measurements Intervals [place] Rate: 46 P: 69 UT: 149 QRS: 70 QRSD: 93 T: 52 QT: 449 QTc: 395 Interpretive Statements SINUS BRADYCARDIA BASELINE WANDER- II, III, AVF ABNORMAL ECG NO PREVIOUS ECG AVAILABLE FOR COMPARISON Electronically Signed On 07-14-2023 6:29:59 DEMOLITIONIST by Anthony Bettencourt D.O.
--- NOTE | 2023-07-13 23:07 | ED.GENADULT ---
HPI - General Adult General Chief complaint: Neuro Symptoms/Deficit Stated complaint: left sided pins and needles in hand started tuesday Time Seen by Provider: 07/13/23 22:27 Source: patient Limitations: no limitations History of Present Illness HPI narrative: Patient is a 32-year-old female present to the emergency department with multiple complaints. Patient states on she developed a sensation of burning in her left arm whenever she was lifting something and she went to [facility] where they gave her a shot in her arm and muscle relaxers she has been taking these as prescribed however she is not getting any significant. Patient denies any preceding injuries or history of this in the past. Patient states since Tuesday she has been noticing some pins and needle sensations in her left hand. Patient is to history of this pins and needle sensations in her hands and feet in the past. Patient denies numbness, weakness, vision changes, difficulty swallowing, chest pain, difficulty breathing, abdominal pain, nausea, vomiting, diarrhea, melena, hematochezia, urinary discomfort, alcohol use, illicit drug use, history of diabetes, history of IV drug use, history of cancer. Patient also states she has been noticing some swelling to the left side of her face and left arm left leg for the past 2 days with no history of this in the past. Patient also states she has been having a migraine for the past 4 days with a history of migraines and this does not feel change from her history of migraines. Related Data Home Medications Medication Instructions Recorded Confirmed budesonide-formoterol HFA 160 2 puff inhalation BID 11/09/19 11/15/22 mcg-4.5 mcg/actuation aerosol inhaler (Symbicort) duloxetine 60 mg capsule,delayed 60 mg PO DAILY 11/09/19 11/15/22 release vitamin B complex (B 1 tablet PO DAILY 11/09/19 11/15/22 Complex-Vitamin B12 tablet) albuterol sulfate 90 mcg/actuation 1 puff inhalation Q4-6H PRN 09/10/22 11/15/22 aerosol inhaler Shortness Of Breath Or Wheezing metoprolol succinate 50 mg 50 mg PO HS 09/10/22 11/15/22 tablet,extended release 24 hr blood-gluc meter-wrist BP mntr 09/17/22 10/29/22 (2Tek Glucose/Blood Pressure kit) fluticasone propionate 50 1 spray intranasal DAILY 09/17/22 11/15/22 mcg/actuation nasal spray,suspension (Flonase Allergy Relief) ergocalciferol (vitamin D2) 1,250 50,000 mcg PO WEEKLY 10/04/22 11/15/22 mcg (50,000 unit) capsule cyclobenzaprine 10 mg tablet 10 mg PO HS 10/13/22 11/15/22 ferrous sulfate 325 mg (65 mg 325 mg PO BID 10/13/22 11/15/22 iron) tablet tramadol 50 mg tablet 50 mg PO BID PRN Pain 10/13/22 11/15/22 sumatriptan succinate 25 mg tablet mg PO 12/06/22 Allergies Allergy/AdvReac Type Severity Reaction Status Date / Time nitrofurantoin Allergy Severe Swelling Verified 07/13/23 16:32 [From Macrobid] of Lip/Tongue/Throat Review of Systems Review of Systems: A 10 system review of systems was completed on the patient and is negative except for what is stated in the HPI. Nursing and ancillary documentation was reviewed. FOR[facility]LY [facility] Past Medical History Medical History Anemia Bipolar 1 disorder Constipation COPD (chronic obstructive pulmonary disease) Diabetes Esophagitis GERD (gastroesophageal reflux disease) Heart palpitations Nausea & vomiting Thyroid activity decreased Upper abdominal pain Surgical History Surgical History H/O gynecological procedure 11/18/22 hscope/d & c/bilat salpingectomy/ablation History of delivery x2 Family History Family History Father Diabetes mellitus Heart disease Social History Social History Smoking packs per day: 1.5 Smoking cigarettes per day: 30.0 Years smoked: 15 [place]
[2023-07-13 23:33] LABS: Basophils Percent Auto 0.4 % (0.2-1.2); Eosinophils Absolute Auto 0.1 K/mm3 (0-0.3); Eosinophils Percent Auto 1.7 % (0-4.4); Hematocrit 34.7 % (37.0-47.0); Hemoglobin 11.1 g/dL (12.0-15.0); Immature Granulocyte Absolute 0.03 K/mm3 (0.00-0.031); Immature Granulocyte Percent A 0.4 % (0-0.5); Lymphocytes Absolute Auto 2.67 K/mm3 (0.9-3.2); Lymphocytes Percent Auto 31.6 % (18.3-44.2); Mean Corpuscular Hemoglobin 29.6 pg (26-34); Mean Corpuscular Volume 92.5 fl (80-100); Mean Platelet Volume 10.8 fl (7.4-10.4); Monocytes Absolute Auto 0.6 K/mm3 (0.1-0.6); Monocytes Percent Auto 7.1 % (2.6-8.5); Neutrophils Percent Auto 58.8 % (45.5-73.1); Platelet Count Result 246 k/mm3 (150-375); Red Blood Count 3.75 M/mm3 (4.2-5.4); Red Cell Distribution Width 12.2 % (11.5-14.5); White Blood Count 8.5 K/mm3 (4.5-10.0)
[2023-07-13] MEDS: PROCHLORPERAZINE EDISYLATE 10 MG/2 ML VIAL IV PUSH (23:36)
[2023-07-13] MEDS: SODIUM CHLORIDE 0.9% IV 1,000 ML 999 ML IV CONT (23:36)
[2023-07-13] MEDS: diazePAM (*CRX) 5 MG TABLET PO (23:36)
[2023-07-13] MEDS: diphenhydrAMINE HCl INJ 50 MG/ML VIAL 25 MG IV PUSH (23:36)
[2023-07-13] MEDS: KETOROLAC 15 MG/ML VIAL (*BKC) IV PUSH (23:36)
[2023-07-13 23:42] VITALS: BP 109/75; PULSE 58; RESP 15; O2SAT 100
[2023-07-13 23:43] LABS: SPREG INTERNAL CONTROL Positive; Serum Qual hCG Negative
[2023-07-13 23:48] LABS: Alanine Aminotransferase 13 U/L (6-35); Albumin Level 3.3 g/dL (3.5-5.1); Alkaline Phosphatase 45 U/L (38-126); Anion Gap 6 mmol/L (8-16); Aspartate Amino Transferase 11 U/L (14-36); Bilirubin,Total 0.3 mg/dL (0.2-1.3); Blood Urea Nitrogen 15 mg/dL (7-17); Calcium 8.5 mg/dL (8.4-10.2); Carbon Dioxide 22 mmol/L (22-30); Chloride 109 mmol/L (98-107); Creatine Kinase 68 U/L (30-135); Estimated CRCL calculation 97 ml/min; Estimated Glomerular Filt Rate > 60; Glucose 85 mg/dL (65-110); Magnesium 1.9 mg/dL (1.6-2.3); Potassium 3.7 mmol/L (3.4-5.0); Sodium 137 mmol/L (137-145)
[2023-07-13 23:59] LABS: Troponin I < 0.012 ng/mL (0.000-0.034)
[2023-07-14 03:40] LABS: Folic Acid 7.6 ng/mL (2.76->20)
== END 2023-07-14 01:48 | disposition home or self-care (01) ==
PROVIDERS: Emergency Provider Student in an Organized Health Care Education/Training Program; PCP Emergency Medicine
DX: G43.909 Migraine, unspecified, not intractable, without status migrainosus (principal); G62.9 Polyneuropathy, unspecified; M54.12 Radiculopathy, cervical region; R00.1 Bradycardia, unspecified; Z87.891 Personal history of nicotine dependence; D64.9 Anemia, unspecified; F31.9 Bipolar disorder, unspecified; J44.9 Chronic obstructive pulmonary disease, unspecified; E11.9 Type 2 diabetes mellitus without complications; K21.9 Gastro-esophageal reflux disease without esophagitis
CPT/HCPCS: 36415; 70450; 71046; 72125; 80053; 82550; 82607; 82746; 83735; 84443; 84484; 84703; 85025; 93005; 96361; 96374; 96375; 99284; A9270; J0780; J1200; J1885; J7030

== ENCOUNTER 2023-08-26 06:50 | Outpatient (CLI) | payer BC, MEDICAID, SELFPAY ==
--- NOTE | ~2023-08-26 | MR_ITS ---
MRI of the brain Clinical History: Multiple sclerosis Technique: Axial and sagittal T1-weighted images were acquired. These were followed by axial T2-weigh ronny, diffusion weighted, gradient, and FLAIR images.. Following intravenous administration of 14 cc M ultiHance gadolinium, T1-weighted fat-sat imaging was performed in the axial, coronal, and sagittal p lanes. Findings: No abnormal signal seen in the brain parenchyma. No acute infarct, intracranial hemorrhage, or mass lesion. No white matter lesions identified. Ventricles and subarachnoid spaces are unremarkable. Orbits are unremarkable. Retention cyst or polyp present in the left maxillary sinus. Remaining paranasal sinuses and mastoid air cells are clear. Ma dorian intracranial flow voids appear intact. Sagittal midline structures are intact. No abnormal postcontrast enhancement. IMPRESSION: No intracranial abnormality. Mild sinus disease, as above. Reviewed, dictated and finalized at [facility]. NOLOGY INTEGRATION SPECIALIST
== END 2023-08-26 06:51 | disposition home or self-care (01) ==
PROVIDERS: PCP Emergency Medicine; Visit Provider Psychiatry & Neurology Neurology
DX: G35 Multiple sclerosis (principal); R20.0 Anesthesia of skin; R20.2 Paresthesia of skin
CPT/HCPCS: 70553; A9577

== ENCOUNTER 2023-12-15 23:00 | Emergency (ER) | payer BC, MEDICAID, SELFPAY ==
--- NOTE | ~2023-12-15 | XR_ITS ---
EXAMINATION: XR chest 2V DATE: 12/15/2023 23:39 INDICATION: Nausea. Atrial fibrillation presenting with heart fluttering. TECHNIQUE: PA and lateral views of the chest were obtained. COMPARISON: Chest radiograph dated 07/13/23 FINDINGS: The lungs remain clear with no focal airspace opacities, pulmonary edema, pleural effusion or pneumot horax. The cardiomediastinal silhouette is normal. Visualized bones and soft tissues are unremarkable . IMPRESSION: 1. No acute cardiopulmonary disease. Reviewed, dictated and finalized at location A.
--- NOTE | 2023-12-15 23:01 | ECG_ITS ---
Test Date: 2023-12-15 23:12:29 Measurements Intervals [place] Rate: 64 P: 72 FL: 145 QRS: 73 QRSD: 93 T: 58 QT: 404 QTc: 417 Interpretive Statements SINUS RHYTHM POSSIBLE LEFT ATRIAL ENLARGEMENT [-0.1mV P-WAVE IN V1/V2] BORDERLINE ECG No previous ECG available for comparison Electronically Signed On 12-16-2023 10:55:44 CDT by Anirudh Ambrose M.D.
[2023-12-15 23:06] VITALS: BP 98/64; PULSE 67; RESP 16; TEMP 36.3; O2SAT 100
[2023-12-15 23:26] LABS: Basophils Absolute Auto 0.1 K/mm3 (0.0-0.1); Basophils Percent Auto 0.5 % (0.2-1.2); Eosinophils Absolute Auto 0.1 K/mm3 (0-0.3); Eosinophils Percent Auto 0.7 % (0-4.4); Hematocrit 37.5 % (37.0-47.0); Hemoglobin 12.8 g/dL (12.0-15.0); Immature Granulocyte Absolute 0.02 K/mm3 (0.00-0.031); Immature Granulocyte Percent A 0.2 % (0-0.5); Lymphocytes Absolute Auto 2.27 K/mm3 (0.9-3.2); Lymphocytes Percent Auto 22.5 % (18.3-44.2); Mean Corpuscular HGB Conc 34.1 g/dl (32-36); Mean Corpuscular Hemoglobin 29.7 pg (26-34); Mean Platelet Volume 10.1 fl (7.4-10.4); Monocytes Absolute Auto 0.6 K/mm3 (0.1-0.6); Monocytes Percent Auto 5.5 % (2.6-8.5); Neutrophils Absolute Auto 7.1 K/mm3 (1.3-6.7); Neutrophils Percent Auto 70.6 % (45.5-73.1); Platelet Count Result 304 k/mm3 (150-375); Red Blood Count 4.31 M/mm3 (4.2-5.4); Red Cell Distribution Width 12.2 % (11.5-14.5); White Blood Count 10.1 K/mm3 (4.5-10.0)
[2023-12-15 23:36] LABS: Alanine Aminotransferase 14 U/L (6-35); Albumin Level 4.6 g/dL (3.5-5.1); Alkaline Phosphatase 49 U/L (38-126); Anion Gap 11 mmol/L (4-12); Aspartate Amino Transferase 14 U/L (14-36); Bilirubin,Total 0.7 mg/dL (0.2-1.3); Blood Urea Nitrogen 16 mg/dL (7-17); Calcium 9.4 mg/dL (8.4-10.2); Carbon Dioxide 22 mmol/L (22-30); Chloride 107 mmol/L (98-107); Estimated CRCL calculation 108 ml/min; Estimated Glomerular Filt Rate > 60; Glucose 112 mg/dL (65-110); Lipase 29 U/L (23-300); Potassium 3.3 mmol/L (3.4-5.0); Sodium 140 mmol/L (137-145)
[2023-12-15 23:37] LABS: Partial Thromboplastin Time 24.9 Seconds (22.3-36.8); Prothrombin Time 14.1 Seconds (11.1-14.7)
[2023-12-15 23:47] LABS: Troponin I < 0.012 ng/mL (0.000-0.034)
[2023-12-16] VITALS (13 sets, daily range): BP systolic 91–112; BP diastolic 60–75; PULSE 46–112; RESP 11–15; O2SAT 98–100
--- NOTE | 2023-12-16 01:15 | ED.GENADULT ---
HPI - General Adult General Chief complaint: Arrhythmia/Palpitations Stated complaint: fast heart beat, vomiting Time Seen by Provider: 12/16/23 01:15 History of Present Illness HPI narrative: Patient is a 33-year-old female presents emergency department with chief complaint of fast heart rate and then slow heart rate. The patient reports that she had an episode where she felt as though her heart was beating very fast and then it slowed down. The patient reports that she felt nauseated she took Zofran prior to arrival that was given to her by family member. Patient states that she has no headache denies focal neurological deficit denies syncope Related Data Home Medications Medication Instructions Recorded Confirmed budesonide-formoterol HFA 160 2 puff inhalation BID 11/09/19 09/23/23 mcg-4.5 mcg/actuation aerosol inhaler (Symbicort) duloxetine 60 mg capsule,delayed 60 mg PO DAILY 11/09/19 09/23/23 release vitamin B complex (B 1 tablet PO DAILY 11/09/19 09/23/23 Complex-Vitamin B12 tablet) albuterol sulfate 90 mcg/actuation 1 puff inhalation Q4-6H PRN 09/10/22 09/23/23 aerosol inhaler Shortness Of Breath Or Wheezing metoprolol succinate 50 mg 50 mg PO HS 09/10/22 09/23/23 tablet,extended release 24 hr blood-gluc meter-wrist BP mntr 09/17/22 09/23/23 (2Tek Glucose/Blood Pressure kit) fluticasone propionate 50 1 spray intranasal DAILY 09/17/22 09/23/23 mcg/actuation nasal spray,suspension (Flonase Allergy Relief) ergocalciferol (vitamin D2) 1,250 50,000 mcg PO WEEKLY 10/04/22 09/23/23 mcg (50,000 unit) capsule cyclobenzaprine 10 mg tablet 10 mg PO HS 10/13/22 11/15/22 ferrous sulfate 325 mg (65 mg 325 mg PO BID 10/13/22 09/23/23 iron) tablet tramadol 50 mg tablet 50 mg PO BID PRN Pain 10/13/22 09/23/23 sumatriptan succinate 25 mg tablet mg PO 12/06/22 09/23/23 calcium carbonate (Calcium 600) 600 mg PO DAILY 08/10/23 09/23/23 aspirin 81 mg chewable tablet 81 mg PO DAILY 09/23/23 09/23/23 Allergies Allergy/AdvReac Type Severity Reaction Status Date / Time nitrofurantoin Allergy Severe Swelling Verified 09/23/23 09:14 [From Macrobid] of Lip/Tongue/Throat Review of Systems Review of Systems: A 10 system review of systems was completed on the patient and is negative except for what is stated in the HPI. Nursing and ancillary documentation was reviewed. [facility] Past Medical History Medical History Anemia Bipolar 1 disorder Constipation COPD (chronic obstructive pulmonary disease) Diabetes Esophagitis GERD (gastroesophageal reflux disease) Heart palpitations Nausea & vomiting Numbness and tingling of left arm and leg Thyroid activity decreased Upper abdominal pain Surgical History Surgical History H/O gynecological procedure 11/18/22 hscope/d & c/bilat salpingectomy/ablation History of delivery x2 Family History Family History Father Diabetes mellitus Heart disease Social History Social History Smoking packs per day: 1.5 Smoking cigarettes per day: 30.0 Years smoked: 15 Smoking pack-years: 22.50 Smoking status: Former smoker Tobacco type: cigarettes Smoking end date: 03/27/22 Alcohol intake: current Alcohol use details: RARE Substance use: current Substance use type: marijuana Other substance usage details: 4 X DAY Last use: 11/08/2019 Do You Feel Safe in your Home?: Yes Lack of Transportation: No Lack of Food: Never True Current Housing: I Have Housing Concerned About Future Housing: No Difficulty Paying Gas/Electric Bills: YES Difficulty Paying for Meds: No Currently Unemployed: No Education: High School Diploma/GED Difficulty w/ Childcare or Family Care
[2023-12-16] MEDS: SODIUM CHLORIDE 0.9% IV 1,000 ML 999 ML (02:04)
[2023-12-16] MEDS: ONDANSETRON INJ 4 MG/2 ML VIAL (02:04)
--- NOTE | 2023-12-16 03:06 | PC.NURSE ---
pt here during downtime. please see downtime charting.
--- NOTE | 2023-12-16 04:10 | ECG_ITS ---
Test Date: 2023-12-16 04:18:21 Measurements Intervals [place] Rate: 46 P: 68 VA: 156 QRS: 72 QRSD: 98 T: 59 QT: 469 QTc: 414 Interpretive Statements SINUS BRADYCARDIA OTHERWISE NORMAL ECG Compared to ECG 12/15/2023 23:12:29 Sinus rhythm no longer present Electronically Signed On 12-16-2023 10:56:48 CDT by Anirudh Ambrose M.D.
[2023-12-16 04:53] LABS: Troponin I < 0.012 ng/mL (0.000-0.034)
== END 2023-12-16 05:06 | disposition home or self-care (01) ==
PROVIDERS: Emergency Provider Emergency Medicine; PCP Emergency Medicine
DX: R00.2 Palpitations (principal); J44.9 Chronic obstructive pulmonary disease, unspecified; E11.9 Type 2 diabetes mellitus without complications; K21.00 Gastro-esophageal reflux disease with esophagitis, without bleeding; F31.9 Bipolar disorder, unspecified; Z87.891 Personal history of nicotine dependence; Z86.2 Personal history of diseases of the blood and blood-forming organs and certain disorders involving the immune mechanism; Z79.82 Long term (current) use of aspirin; Z79.899 Other long term (current) drug therapy; Z79.891 Long term (current) use of opiate analgesic; R00.1 Bradycardia, unspecified; R94.31 Abnormal electrocardiogram [ECG] [EKG]
CPT/HCPCS: 36415; 71046; 80053; 83690; 84484; 85025; 85610; 85730; 93005; 96361; 96374; 99284; J2405; J7030

== ENCOUNTER 2024-01-04 15:08 | Emergency (ER) | payer BC, MEDICAID, SELFPAY ==
[2024-01-04] VITALS (7 sets, daily range): BP systolic 104–110; BP diastolic 66–74; PULSE 60–68; RESP 12–18; TEMP 36.9–37.1; O2SAT 97–100
--- NOTE | ~2024-01-04 | XR_ITS ---
EXAMINATION: XR chest 2V DATE: 01/04/2024 15:35 INDICATION: Chest pain. COPD and atrial fibrillation. TECHNIQUE: frontal and lateral views of the chest were obtained. COMPARISON: Chest radiograph dated 12/15/2023 FINDINGS: The lungs remain clear with no focal airspace opacities, pulmonary edema, pleural effusion or pneumot horax. The cardiomediastinal silhouette is normal. IMPRESSION: 1. Normal chest radiograph. Reviewed, dictated and finalized at location A. IMPRESSION: 1. Normal chest radiograph.
--- NOTE | 2024-01-04 15:09 | ECG_ITS ---
Test Date: 2024-01-04 15:14:33 Measurements Intervals [place] Rate: 65 P: 75 NC: 142 QRS: 74 QRSD: 86 T: 56 QT: 378 QTc: 394 Interpretive Statements SINUS RHYTHM BASELINE ARTIFACT- I, II, III, AVR, AVL, AVF NORMAL ECG Compared to ECG 12/16/2023 04:18:21 Sinus bradycardia no longer present Electronically Signed On 01-04-2024 15:20:10 CDT by Anthony Bettencourt D.O.
--- NOTE | 2024-01-04 15:14 | ED.CHESTPAIN ---
HPI - Chest Pain General Chief Complaint: Chest Pain Stated Complaint: chest is hurting Time Seen by Provider: 01/04/24 15:10 History of Present Illness HPI narrative: Patient is a 33-year-old female with history of AFib, GERD, lupus, IBS, recurrent pneumonia here with chest pain. She states that her chest pain began about 2 days ago, is left-sided and a pressure-like sensation. The pain is nonradiating. She states that at 3:00 a.m. this morning it seemed to worsen significantly. She went into her primary care doctor's office today and they did an EKG and recommended she come into the emergency department because of how she looked. She does have a history of AFib, is on both metoprolol and Cardizem. She follows with Dr. Salas out of [facility]. she currently has a event monitor in place for the last 3 weeks. She did not contact their office prior to coming into the emergency department. Of note patient did Come in to this emergency department about 3 weeks ago. She notes she was having some chest pains at that time which were much more severe. She does note a history of prior DVT and she describes that her primary care doctor was concerned today that her pain could be due to a blood clot which is one of the reasons that they wanted her to come into the ER. She denies any worsening of her chronic COPD cough, no increased sputum production. She does endorse some associated shortness of breath. No fever or chills. No sick contacts. Related Data Home Medications Medication Instructions Recorded Confirmed budesonide-formoterol HFA 160 2 puff inhalation BID 11/09/19 09/23/23 mcg-4.5 mcg/actuation aerosol inhaler (Symbicort) duloxetine 60 mg capsule,delayed 60 mg PO DAILY 11/09/19 09/23/23 release vitamin B complex (B 1 tablet PO DAILY 11/09/19 09/23/23 Complex-Vitamin B12 tablet) albuterol sulfate 90 mcg/actuation 1 puff inhalation Q4-6H PRN 09/10/22 09/23/23 aerosol inhaler Shortness Of Breath Or Wheezing metoprolol succinate 50 mg 50 mg PO HS 09/10/22 09/23/23 tablet,extended release 24 hr blood-gluc meter-wrist BP mntr 09/17/22 09/23/23 (2Tek Glucose/Blood Pressure kit) fluticasone propionate 50 1 spray intranasal DAILY 09/17/22 09/23/23 mcg/actuation nasal spray,suspension (Flonase Allergy Relief) ergocalciferol (vitamin D2) 1,250 50,000 mcg PO WEEKLY 10/04/22 09/23/23 mcg (50,000 unit) capsule cyclobenzaprine 10 mg tablet 10 mg PO HS 10/13/22 11/15/22 ferrous sulfate 325 mg (65 mg 325 mg PO BID 10/13/22 09/23/23 iron) tablet tramadol 50 mg tablet 50 mg PO BID PRN Pain 10/13/22 09/23/23 sumatriptan succinate 25 mg tablet mg PO 12/06/22 09/23/23 calcium carbonate (Calcium 600) 600 mg PO DAILY 08/10/23 09/23/23 aspirin 81 mg chewable tablet 81 mg PO DAILY 09/23/23 09/23/23 Allergies Allergy/AdvReac Type Severity Reaction Status Date / Time nitrofurantoin Allergy Severe Swelling Verified 01/04/24 15:20 [From Macrobid] of Lip/Tongue/Throat Review of Systems Review of Systems: All systems reviewed & are unremarkable except as noted in HPI and below PMFSH Past Medical History Medical History Anemia Bipolar 1 disorder Constipation COPD (chronic obstructive pulmonary disease) Diabetes Esophagitis GERD (gastroesophageal reflux disease) Heart palpitations Nausea & vomiting Numbness and tingling of left arm and leg Thyroid activity decreased Upper abdominal pain Surgical History Surgical History H/O gynecological procedure 11/18/22 hscope/d & c/bilat salpingectomy/ablation History of delivery x2 Family History Family History Father Diabetes mellitus Heart disease Social History Social History
[2024-01-04 15:27] LABS: Basophils Absolute Auto 0.1 K/mm3 (0.0-0.1); Basophils Percent Auto 0.6 % (0.2-1.2); Eosinophils Absolute Auto 0.1 K/mm3 (0-0.3); Eosinophils Percent Auto 1.3 % (0-4.4); Hematocrit 41.2 % (37.0-47.0); Hemoglobin 14.1 g/dL (12.0-15.0); Immature Granulocyte Absolute 0.03 K/mm3 (0.00-0.031); Immature Granulocyte Percent A 0.3 % (0-0.5); Lymphocytes Percent Auto 24.3 % (18.3-44.2); Mean Corpuscular HGB Conc 34.2 g/dl (32-36); Mean Corpuscular Hemoglobin 29.8 pg (26-34); Mean Corpuscular Volume 87.1 fl (80-100); Mean Platelet Volume 10.3 fl (7.4-10.4); Monocytes Absolute Auto 0.8 K/mm3 (0.1-0.6); Neutrophils Absolute Auto 7.1 K/mm3 (1.3-6.7); Neutrophils Percent Auto 66.5 % (45.5-73.1); Platelet Count Result 320 k/mm3 (150-375); Red Blood Count 4.73 M/mm3 (4.2-5.4); Red Cell Distribution Width 12.5 % (11.5-14.5); White Blood Count 10.7 K/mm3 (4.5-10.0)
[2024-01-04] MEDS: ASPIRIN 81 MG CHEWABLE TABLET 324 MG PO (15:36)
[2024-01-04 15:38] LABS: Prothrombin Time 13.9 Seconds (11.1-14.7)
[2024-01-04 15:39] LABS: Partial Thromboplastin Time 27.4 Seconds (22.3-36.8)
[2024-01-04 15:40] LABS: Alanine Aminotransferase 12 U/L (6-35); Albumin Level 4.6 g/dL (3.5-5.1); Alkaline Phosphatase 42 U/L (38-126); Anion Gap 13 mmol/L (4-12); Aspartate Amino Transferase 13 U/L (14-36); Bilirubin,Total 0.9 mg/dL (0.2-1.3); Blood Urea Nitrogen 14 mg/dL (7-17); Calcium 9.4 mg/dL (8.4-10.2); Carbon Dioxide 21 mmol/L (22-30); Chloride 105 mmol/L (98-107); Estimated CRCL calculation 110 ml/min; Estimated Glomerular Filt Rate > 60; Glucose 97 mg/dL (65-110); Lipase 29 U/L (23-300); Potassium 3.7 mmol/L (3.4-5.0); Sodium 139 mmol/L (137-145)
[2024-01-04 15:52] LABS: Troponin I < 0.012 ng/mL (0.000-0.034)
[2024-01-04 17:14] LABS: D Dimer 0.33 ug/mL (<0.48)
[2024-01-04 17:44] LABS: Influenza A QL RT-PCR Negative (Negative); Influenza B QL RT-PCR Negative (Negative); RSV RNA, RT-PCR Negative (Negative); SARS-CoV-2 RNA PCR Negative (Negative)
--- NOTE | 2024-01-04 18:03 | ECG_ITS ---
Test Date: 2024-01-04 18:22:41 Measurements Intervals [place] Rate: 54 P: 68 PA: 151 QRS: 69 QRSD: 88 T: 52 QT: 431 QTc: 410 Interpretive Statements SINUS BRADYCARDIA MINIMAL Q WAVES- INFERIOR LEADS BORDERLINE ECG Compared to ECG 01/04/2024 15:14:33 HEART RATE HAS DECREASED Electronically Signed On 01-04-2024 20:33:17 CDT by Anthony Bettencourt D.O.
[2024-01-04 18:29] LABS: Troponin I < 0.012 ng/mL (0.000-0.034)
== END 2024-01-04 19:18 | disposition home or self-care (01) ==
PROVIDERS: Emergency Provider Student in an Organized Health Care Education/Training Program; PCP Emergency Medicine
DX: R07.89 Other chest pain (principal); I48.91 Unspecified atrial fibrillation; E11.9 Type 2 diabetes mellitus without complications; J44.9 Chronic obstructive pulmonary disease, unspecified; Z87.891 Personal history of nicotine dependence; Z20.822 Contact with and (suspected) exposure to COVID-19
CPT/HCPCS: 36415; 71046; 80053; 83690; 84484; 85025; 85380; 85610; 85730; 87637; 93005; 99284; A9270

== ENCOUNTER 2024-06-13 17:43 | Emergency (ER) | payer BC, MEDICAID, SELFPAY ==
--- NOTE | ~2024-06-13 | XR_ITS ---
EXAMINATION: XR chest 2V DATE: 06/13/2024 18:17 INDICATION: Cough. TECHNIQUE: Frontal and lateral views of the chest were obtained. COMPARISON: Chest 2 views 01/04/2024 FINDINGS: There is no pneumonia, pleural effusion, or pneumothorax. The heart is normal. IMPRESSION: 1. No acute cardiopulmonary disease. Reviewed, dictated and finalized at location A. ETY SAW OPERATOR
[2024-06-13 17:54] VITALS: BP 108/70; PULSE 70; RESP 18; TEMP 36.5; O2SAT 100
[2024-06-13 18:05] VITALS: O2SAT 98
[2024-06-13 18:33] LABS: Strep Group A RT-PCR NOT DETECTED (Negative)
--- NOTE | 2024-06-13 19:10 | ED.URI ---
HPI - URI/Sore Throat General Chief Complaint: Upper Respiratory Infection Stated Complaint: everything hurts Time Seen by Provider: 06/13/24 17:59 Source: patient Mode of arrival: ambulatory Limitations: no limitations History of Present Illness HPI Narrative: This is a 33-year-old female that presents to the emergency department for cold symptoms ongoing over the last 3 days. Reports cough, congestion, sore throat, myalgias. Reports a positive sick contact at work. Denies fevers. Related Data Home Medications ?Medication ?Instructions ?Recorded ?Confirmed ?Last Taken ?Type budesonide-formoterol HFA 160 2 puff inhalation BID 11/09/19 09/23/23 Unknown History mcg-4.5 mcg/actuation aerosol inhaler (Symbicort) duloxetine 60 mg capsule,delayed 60 mg PO DAILY 11/09/19 09/23/23 Unknown History release vitamin B complex (B 1 tablet PO DAILY 11/09/19 09/23/23 Unknown History Complex-Vitamin B12 tablet) albuterol sulfate 90 mcg/actuation 1 puff inhalation Q4-6H PRN 09/10/22 09/23/23 Unknown History aerosol inhaler Shortness Of Breath Or Wheezing metoprolol succinate 50 mg 50 mg PO HS 09/10/22 09/23/23 Unknown History tablet,extended release 24 hr blood-gluc meter-wrist BP mntr 09/17/22 09/23/23 Unknown History (2Tek Glucose/Blood Pressure kit) fluticasone propionate 50 1 spray intranasal DAILY 09/17/22 09/23/23 Unknown History mcg/actuation nasal spray,suspension (Flonase Allergy Relief) ergocalciferol (vitamin D2) 1,250 50,000 mcg PO WEEKLY 10/04/22 09/23/23 Unknown History mcg (50,000 unit) capsule cyclobenzaprine 10 mg tablet 10 mg PO HS 10/13/22 11/15/22 Unknown History ferrous sulfate 325 mg (65 mg 325 mg PO BID 10/13/22 09/23/23 Unknown History iron) tablet tramadol 50 mg tablet 50 mg PO BID PRN Pain 10/13/22 09/23/23 Unknown History sumatriptan succinate 25 mg tablet mg PO 12/06/22 09/23/23 Unknown History calcium carbonate (Calcium 600) 600 mg PO DAILY 08/10/23 09/23/23 Unknown History aspirin 81 mg chewable tablet 81 mg PO DAILY 09/23/23 09/23/23 Unknown History Allergies Allergy/AdvReac Type Severity Reaction Status Date / Time nitrofurantoin (From Allergy Severe Swelling Verified 06/13/24 17:44 Macrobid) of Lip/Tongue/Throat Review of Systems Review of Systems: CONSTITUTIONAL: Reports chills. Denies fever ENT: Reports congestion, sore throat CARDIOVASCULAR: Denies chest pain RESPIRATORY: Reports cough. Denies dyspnea. All systems reviewed & are unremarkable except as noted in HPI and below PMFSH Past Medical History Medical History Anemia Bipolar 1 disorder Constipation COPD (chronic obstructive pulmonary disease) Diabetes Esophagitis GERD (gastroesophageal reflux disease) Heart palpitations Nausea & vomiting Numbness and tingling of left arm and leg Thyroid activity decreased Upper abdominal pain Surgical History Surgical History H/O gynecological procedure 11/18/22 hscope/d & c/bilat salpingectomy/ablation History of delivery x2 Family History Family History Father Diabetes mellitus Heart disease Social History Social History Smoking packs per day: 1.5 Smoking cigarettes per day: 30.0 Years smoked: 15 Smoking pack-years: 22.50 Smoking status: Former smoker Tobacco type: cigarettes Smoking end date: 03/27/22 Alcohol intake: current Alcohol use details: RARE Substance use: current Substance use type: marijuana Other substance usage details: 4 X DAY Last use: 11/08/2019 Do You Feel Safe in your Home?: Yes Lack of Transportation: No Lack of Food: Never True Current Housing: I Have Housing Concerned About Future Housing: No Difficulty Paying Gas/Electric Bills: YES Difficulty Paying for Meds: No Currently Unemployed: No Education: High School Diploma/GED Difficulty w/ Childcare or Family Care: No Living arrangements: with family Occupation/Education: occupation Gender identity (if verbalized by the patient): Female Sexual Orientation (if Verbalized by the Patient): Straight or Heterosexual Spiritual care concerns: No Exam Narrative: GENERAL: Well-appearing, well-nourished, and in no acute distress. HEAD: Normocephalic, atraumatic. EYES: EOMI. ENT: Nares clear, no rhinorrhea or epistaxis. Mucous membranes moist. Oropharynx without tonsillar hypertrophy exudate or other lesions. Bilateral TMs pearly barajas non-bulging NECK: Supple. No adenopathy or masses. CHEST: Clear to auscultation. No respiratory distress. No wheezes rales or rhonchi HEART: Regular rate and rhythm. No murmur heard. Normal peripheral pulses. EXTREMITIES: Normal range of motion. No edema. SKIN: Warm, dry, no rash. NEURO: No focal deficits. Alert and oriented x3. PSYCH: Normal mood and affect Course Course Emergency Course: patient updated on workup and agrees with plan of care Vital Signs Vital signs: Vital Signs Temperature 97.7 F 06/13/24 17:54 Pulse Rate 70 06/13/24 17:54 Respiratory Rate 18 06/13/24 17:54 Blood Pressure 108/70 06/13/24 17:54 Pulse Oximetry 100 06/13/24 17:54 Temperature 97.7 F 06/13/24 17:54 Pulse Rate 67 06/13/24 19:50 Respiratory Rate 16 06/13/24 19:50 Blood Pressure 111/64 06/13/24 19:50 Pulse Oximetry 100 06/13/24 19:50 Oxygen Delivery Room Air 06/13/24 18:05 MDM - URI/Sore Throat MDM Narrative Medical decision making narrative: Patient presents to the emergency department for cold symptoms present over the last couple of days. Patient is afebrile and nontoxic appearing. Oxygen saturations 100% on room air. Lungs are clear on exam. Influenza, RSV and COVID screens are negative. Strep screen is also negative. Chest x-ray without acute cardiopulmonary abnormality. Patient updated on workup and agrees with plan of care. She is to follow up primary provider. She was given warnings to return to the ER Differential Diagnosis Differential diagnosis: Likely upper respiratory infection, sinusitis, viral infection, bronchitis, influenza, pharyngitis and other (COVID) Lab Data Attestation: I reviewed the patient's lab results. Labs: Lab Results 06/13/24 Range/Units 18:02 Influenza A (RT-PCR) Negative (Negative) Influenza B (RT-PCR) Negative (Negative) RSV (RT-PCR) Negative (Negative) SARS-CoV-2 RNA (RT-PCR) Negative (Negative) Group A Strep (PCR) Not detected (Negative) Imaging Data Radiologist's impression: ITS Impressions Chest X-Ray 06/13/24 18:21 IMPRESSION: 1. No acute cardiopulmonary disease. Critical Care Time Critical Care Time Critical Care Time: No Discharge Plan Discharge Clinical Impression: Upper respiratory infection Qualifiers: URI type: unspecified viral URI Qualified Code(s): J06.9 - Acute upper respiratory infection, unspecified Patient Disposition: Home, Self-Care Condition: Stable Instructions: Viral Syndrome (ED), Cold Symptoms (ED) Additional Instructions: Return to the emergency department for worsening symptoms, or any other concerns Remain well-hydrated, get plenty of rest. Take Tylenol or Motrin [id number] for pain as needed. Flonase for nasal congestion. Zyrtec for runny nose. Lozenges or Chloraseptic spray for sore throat. Follow up with primary care doctor Patient Language: Turkish Prescriptions: No Action metoprolol succinate 50 mg tablet extended release 24 hr 50 mg PO HS albuterol sulfate 90 mcg/actuation HFA aerosol inhaler 1 puff inhalation Q4-6H PRN (Reason: Shortness Of Breath Or Wheezing) fluticasone propionate [Flonase Allergy Relief] 50 mcg/actuation spray,suspension 1 spray intranasal DAILY Rx Instructions: administer into each nostril (DME) 2Tek Glucose/Blood Pressure Kit See Rx Instructions .Route Rx Instructions: As directed aspirin 81 mg tablet,chewable 81 mg PO DAILY Linzess 72 mcg capsule 72 mcg PO DAILY 30 Days Qty: 30 5RF famotidine 20 mg tablet See Rx Instructions .ROUTE .COMPLEX Qty: 60 0RF Dose Instruction: TAKE 1 TABLET BY MOUTH TWICE A DAY Rx Instructions: TAKE 1 TABLET BY MOUTH TWICE A DAY ferrous sulfate 325 mg (65 mg iron) tablet 325 mg PO BID cyclobenzaprine 10 mg tablet 10 mg PO HS tramadol 50 mg tablet 50 mg PO BID PRN (Reason: Pain) sumatriptan succinate 25 mg tablet PO calcium carbonate [Calcium 600] 600 mg calcium (1,500 mg) tablet 600 mg PO DAILY vitamin B complex [B Complex-Vitamin B12] Tablet 1 tablet PO DAILY duloxetine 60 mg Capsule,Delayed Release(Dr/Ec) 60 mg PO DAILY budesonide-formoterol [Symbicort] 160-4.5 mcg/actuation Hfa Aerosol Inhaler 2 puff INHALATION BID ergocalciferol (vitamin D2) 1,250 mcg (50,000 unit) capsule 50,000 mcg PO WEEKLY Patient Comments: PT TAKES ON TUESDAY ondansetron HCl 4 mg tablet 4 mg PO Q8H PRN (Reason: nausea and vomiting) Qty: 30 1RF acetaminophen 500 mg tablet 500 mg PO Q6H PRN (Reason: pain) Qty: 30 0RF ibuprofen 600 mg tablet 600 mg PO Q6H PRN (Reason: pain) Qty: 30 0RF omeprazole 40 mg capsule,delayed release(DR/EC) See Rx Instructions .ROUTE .COMPLEX Qty: 90 3RF Dose Instruction: TAKE 1 CAPSULE BY MOUTH EVERY DAY Rx Instructions: TAKE 1 CAPSULE BY MOUTH EVERY DAY valacyclovir [Valtrex] 500 mg tablet 500 mg PO DAILY Qty: 60 6RF fluconazole 150 mg tablet 150 mg PO Q72H Qty: 2 0RF Rx Instructions: as a single dose Follow-up/Referrals: Mervin Kevin MD [Primary Care Provider] -
[2024-06-13 19:50] VITALS: BP 111/64; PULSE 67; RESP 16; O2SAT 100
--- NOTE | 2024-06-13 20:04 | PC.NURSE ---
called down to Lab at 1948 to determine if viral swabs have resulted yet. lab states they will need to re-run swabs
[2024-06-13 20:20] LABS: Influenza A QL RT-PCR Negative (Negative); Influenza B QL RT-PCR Negative (Negative); RSV RNA, RT-PCR Negative (Negative); SARS-CoV-2 RNA PCR Negative (Negative)
[2024-06-13 21:12] VITALS: PULSE 68; RESP 14; TEMP 36.9; O2SAT 100
== END 2024-06-13 21:12 | disposition home or self-care (01) ==
PROVIDERS: Emergency Medicine; Emergency Provider Physician Assistant; PCP Emergency Medicine
DX: J06.9 Acute upper respiratory infection, unspecified (principal); Z20.822 Contact with and (suspected) exposure to COVID-19; F31.9 Bipolar disorder, unspecified; E11.9 Type 2 diabetes mellitus without complications; K21.9 Gastro-esophageal reflux disease without esophagitis; Z87.891 Personal history of nicotine dependence
CPT/HCPCS: 71046; 87637; 87651; 99283

== ENCOUNTER 2024-07-19 14:41 | Outpatient (CLI) | payer BC, MEDICAID, SELFPAY ==
[2024-07-19 15:18] LABS: Hematocrit 36.1 % (37.0-47.0); Hemoglobin 12.1 g/dL (12.0-15.0); Mean Corpuscular HGB Conc 33.5 g/dl (32-36); Mean Corpuscular Volume 89.4 fl (80-100); Mean Platelet Volume 10.6 fl (7.4-10.4); Platelet Count Result 290 k/mm3 (150-375); Red Blood Count 4.04 M/mm3 (4.2-5.4); Red Cell Distribution Width 12.5 % (11.5-14.5); White Blood Count 7.1 K/mm3 (4.5-10.0)
[2024-07-19 15:52] LABS: Erythrocyte Sedimentation Rate 9 mm/hr (0-20)
[2024-07-19 16:08] LABS: Cholesterol 119 mg/dL (0-200); HDL Direct 52 mg/dL; Triglycerides 40 mg/dL (<150)
[2024-07-19 16:11] LABS: Creatinine Urine 82.9 mg/dL
[2024-07-19 16:12] LABS: Rheumatoid Factor < 12.0 IU/ML (<12)
[2024-07-19 16:21] LABS: Hemoglobin A1C 5.4 % (<5.7)
[2024-07-19 16:23] LABS: LDL Cholesterol Direct 57 mg/dL
[2024-07-19 16:24] LABS: Free T4 Free Thyroxine 1.01 ng/dL (0.78-2.19); Vitamin D 25 Hydroxy 24.9 ng/mL
[2024-07-19 16:38] LABS: Thyroid Stimulating Hormone 0.537 uIU/mL (0.465-4.680)
[2024-07-19 16:43] LABS: Microalbumin Urine Random < 6.0 mg/L (0-16.7)
[2024-07-19 16:44] LABS: MALB Creatinine Ratio < 7.2 mg/g (0-30)
--- OUTSIDE RECORDS SUMMARY | 2024-07-20 05:48 | XMS_ITS | Referral Summary ---
Author Organization [facility] Address [address] [place] [id number] Care Team Providers Care Hemp Fiber Taker Off Name Role Phone Mervin Kevin MD Primary Care Provider [phone] Allergies Active Allergy Reactions Criticality Noted Date Comments Nitrofurantoin Anaphylaxis High 12/29/2017 Social History Tobacco Use Types Packs/Day Years Used Date Smoking Tobacco: Every Day Cigarettes Smokeless Tobacco: Never Personal Safety Answer Date Recorded Getting School Help Needed Not on file 08/21 Comments No Sex and Gender Information Value Date Recorded Sex Assigned at Not on file 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 Gender Identity Not on file Sexual Orientation Not on file Last Filed Vital Signs Vital Sign Reading Time Taken Comments Blood Pressure 106/57 03/18/2021 12:56 PM CDT Pulse 82 03/18/2021 12:56 PM CDT Temperature 36.6 ??C (97.9 ??F) 03/18/2021 11:40 AM C DT Respiratory Rate 16 03/18/2021 11:40 AM CDT Oxygen Saturation 97% 03/18/2021 12:56 PM CDT Inhaled Oxygen Concentration - - Weight 64.1 kg (141 lb 5 oz) 03/18/2021 11:40 AM CDT Height 170.2 cm (5' 7 ) 03/18/2021 11:40 AM CDT Body Mass Index 22.13 03/18/2021 11:40 AM CDT Plan of Treatment Not on file Care Teams Hemp Fiber Taker Off Relationship Specialty Start Date End Date Mervin Kevin MD PCP - General Emergency Medicine 02/22/22
--- OUTSIDE RECORDS SUMMARY | 2024-07-20 05:48 | XMS_ITS | Clinical Summary ---
Author Organization [facility] Address [address] [place] [address] Care Team Providers Care Food Broker Name Role Phone Unavailable Primary Care Provider Unavailabl e Allergies Active Allergy Reactions Criticality Noted Date Comments Nitrofurantoin Monohyd/M-Cryst Rash High 10/23 Medications albuterol sulfate HFA 90 mcg/actuation aerosol inhaler INHALE 1 PUFF BY MOUTH EVERY 4 HOURS NEEDED 3 Active Accu-Chek Guide test strips Strip USE TO TEST TWICE DAILY 3 Active Accu-Chek Guide Me Glucose Mtr USE TO TEST TWICE DAILY 3 Active Symbicort 160-4.5 mcg/actuation HFA Aerosol Inhaler Take 2 Puffs by inhalation 2 times daily. 3 Active cyclobenzaprine (FLEXERIL) 10 mg tablet TAKE 1 TABLET BY MOUTH EVERY DAY AT BEDTIME NEEDED 3 Active ipratropium bromide (ATROVENT) 42 mcg (0.06 %) [place], Non-Aerosol INSTILL 1 SPRAY INTO THE NOSTRILS 4 TIMES DAILY NEEDED 3 Active Linzess 145 mcg capsule Take 145 mcg by mouth daily. 3 Active metoprolol succinate (Toprol XL) 50 mg Extended Release 24 hour tablet Take by mouth. 2 Active omeprazole (PriLOSEC) 40 mg Capsule, Delayed Release(E.C.) Take 40 mg by mouth daily. 3 Active traMADoL (ULTRAM) 50 mg tablet Take 50 mg by mouth every 12 hours. 3 Active valACYclovir (VALTREX) 500 mg tablet Take 500 mg by mouth daily. 3 Active ondansetron (ZOFRAN ODT) 4 mg Tablet, Rapid Dissolve DISSOLVE 1 TABLET ON THE TONGUE EVERY 8 HOURS NEEDED FOR NAUSEA/VOMITING 3 Active famotidine (PEPCID) 20 mg tablet Take 20 mg by mouth 2 times daily. 3 Active ferrous sulfate 325 mg (65 mg iron) tablet Take 325 mg by mouth daily. Active HYDROcodone-chasity taminophen (NORCO) 5-325 mg tablet Take 1 Tablet by mouth every 4 hours as needed for Pain, Moderate. Active Active Problems No known active problems Family History Medical History Relation Name Comments No Known Problems Brother 1 No Known Problems Brother 2 No Known Problems Daughter Brain Cancer Father Diabetes Father Heart Disease Father No Known Problems Mother No Known Problems Sister 1 No Known Problems Sister 2 No Known Problems Son 1 No Known Problems Son 2 No Known Problems Son 3 No Known Problems Son 4 Relation Name Status Comments Brother 1 Alive Brother 2 Alive Daughter Alive Father Alive Mother Alive Sister 1 Alive Sister 2 Alive Son 1 Alive Son 2 Alive Son 3 Alive Son 4 Alive Social History Tobacco Use Types Packs/Day Years Used Date Smoking Tobacco: Former Cigarettes Smokeless Tobacco: Never Tobacco Cessation:Counseling Given: Not Answered Alcohol Use Standard Drinks/Week Comments Yes 1 (1 standard drink = 0.6 oz pur e alcohol) Comments Unknown Sex and Gender Information Value Date Recorded Sex Assigned at Not on file 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 Gender Identity Not on file Sexual Orientation Not on file Last Filed Vital Signs Vital Sign Reading Time Taken Comments Blood Pressure 101/56 10/06/2022 12:52 PM CDT Pulse 72 10/06/2022 12:52 PM CDT Temperature 36.6 ??C (97.9 ??F) 10/06/2022 12:52 PM C DT Respiratory Rate 10 10/06/2022 12:52 PM CDT Oxygen Saturation 100% 10/06/2022 12:52 PM CDT Inhaled Oxygen Concentration - - Weight 67.4 kg (148 lb 9.6 oz) 10/06/2022 12:52 PM CDT Height 170.2 cm (5' 7 ) 10/01/2022 10:17 AM CDT Body Mass Index 23.27 10/01/2022 10:17 AM CDT Plan of Treatment Health Maintenance Due Date Last Done Comments PNEUMOCOCCAL VACCINE 0-64 YE ARS (1 of 2 - PCV) 1996 HEPATITIS B VACCINES (1 of 3 - 19+ 3-dose series) 2009 CERVICAL CANCER SCREENING 2020 INFLUENZA VACCINE (#1) 2024 04/27/2018 DTAP/TDAP/TD VACCINES (2 - T d or Tdap) 04/06/2028 04/06/2018 HPV VACCINES Aged Out No longer eligi ble based on patient's age to complete this topic Insurance MEDICAID [place]
--- OUTSIDE RECORDS SUMMARY | 2024-07-20 05:48 | XMS_ITS | Data Portability ---
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 Lining Setter Name Role Phone MERVIN KEVIN Referring Provider [phone] Assessment Encounter Date Assessment Date Assessment LastModified by Organization Details LastModified Time 02/07/2023 02/07/2023 Assessment: Postnasal drip Severe persistent asthma Atrial fibrillation Plan: The following were reviewed and explained to the patient: Lab data 10/09/21 multiple environmental allergies Chest 2 views 05/04/21 LLL density Chest 2 views 10/09/21 no acute process Chest 1 view 01/06/22 RML density Chest 1 view 03/27/[address] 01/06/22 RML medial segment infiltrate Chest CT 03/27/22 RML lateral segment infiltrate Chest CT 04/30/22 near complete resolution of RML consolidation Chest CT 07/28/22 mild emphysema Sputum gm stain and culture 04/28/22 normal respiratory obed Sputum fungal stain and culture 04/29/22 no fungus Sputum gm stain and culture 07/08/22 nl resp obed Modified barium swallow 07/28/22 no laryngeal penetration or aspiration PFT 07/15/17 FEV1 3.04 L (86%) PFT 10/08/21 FEV1 2.89 L (89%), (+) BD response PFT 01/31/23 FEV1 3.58 L (117%), (+) BD response Dr. Daniels note 07/29/22 started Flonase and Breztri, further immunology workup Dr. Daniels note 09/02/22 hematology consult Patient will follow up with Dr. Daniels this January, Dr. Royal Davey in February, and Dr. Carisa Doe in June 2023. Continue Atrovent nasal spray 0.06% 1 spray to each nostril up to 4 times a day for postnasal drip. General information on bronchial asthma was covered. Patient will monitor peak flow daily at a set time and again when symptoms of chest tightness, cough, dyspnea or wheezing occur. Patient will bring peak flow record to subsequent visits. The color of a traffic light will guide the patient's use of asthma medications: (1) Green means Go Zone. Peak flow: above 80% of personal best. Symptoms: Breathing is good, no cough or wheeze present, patient sleeps through the night and can work and play. Plan: Patient will continue the use of preventative medicine. (2) Yellow means Caution Zone. Peak flow: between 50-80% of personal best. Symptoms: Presence of first signs of a cold, exposure to known trigger, mild wheeze, tight chest and coughing especially night. Plan: Patient will add quick-relief medicine to preventative medicine. (3) Red means Danger Zone. Peak flow: below 50% of personal best. Symptoms: Asthma is getting worse quickly and medicine is not helping, breathing is hard and fast, nose opens widely when breathing, ribs showing when breathing, and patient cannot speak in full sentences. Plan: Patient will get help from a physician immediately. Continue albuterol HFA 1 puff every 4 hrs as needed. She tried Breztri 160/9/4.8 mcg 2 puffs BID samples from Dr. Daniels but cannot afford the medication pricing. Symbicort 160/4.5 mcg is no longer on the formulary. Start Wixela Inhub 250/50 mcg 1 inhalation BID. Gargle after use. Continue albuterol HFA as needed. The patient does not know how to accurately administer the inhalers. Today, the patient was shown how to take these medications. The proper technique for delivering these medications was instructed. The patient expressed a clear understanding and demonstrated back how to use these medications. Without the proper technique, the patient will not reap the benefits of these medications as the contents will not reach the lower airways as intended to be. Alternatively, greater adherence to medication regimens have shown to lower rates of hospitalization and decrease total medical costs in patients with chronic medical conditions. Advocated influenza vaccination annually and pneumonia vaccination in 2055. Advocated weight loss through diet and exercise. Patient's ideal body weight according to height and gender is up to 135 lbs. Encouraged patient to adjust caloric intake to maintain/achieve ideal body weight, emphasizing on fruits, vegetables, whole grains, and fat-free or low-fat products. These include lean meats, poultry, fish, beans, eggs, and nuts and foods that are low in saturated fats, trans-fats, cholesterol, salt (sodium), and glycemic index. Stressed the importance of regular exercise up to the patient's capacity limits. In this case, we recommend 20 min daily walking, 2 days a week of resistance training. Patient to monitor BP daily and bring records to PCP for further management. Follow-up: 1 year, January 2024 Not available 08/17/2023 14:56:12 01/12/2024 01/12/2024 Assessment: Postnasal drip Severe persistent asthma Atrial fibrillation on diltiazem and metoprolol Lupus Plan: The following were reviewed and explained to the patient: Lab data 10/09/21 multiple environmental allergies Chest 2 views 05/04/21 LLL density Chest 2 views 10/09/21 no acute process Chest 1 view 01/06/22 RML density Chest 1 view 03/27/[address] 01/06/22 RML medial segment infiltrate Chest CT 03/27/22 RML lateral segment infiltrate Chest CT 04/30/22 near complete resolution of RML consolidation Chest CT 07/28/22 mild emphysema Sputum gm stain and culture 04/28/22 normal respiratory obed Sputum fungal stain and culture 04/29/22 no fungus Sputum gm stain and culture 07/08/22 nl resp obed Modified barium swallow 07/28/22 no laryngeal penetration or aspiration PFT 07/15/17 FEV1 3.04 L (86%) PFT 10/08/21 FEV1 2.89 L (89%), (+) BD response PFT 01/31/23 FEV1 3.58 L (117%), (+) BD response Dr. Daniels note 07/29/22 started Flonase and Breztri, further immunology workup Dr. Daniels note 09/02/22 hematology consult Continue Atrovent nasal spray 0.06% 1 spray to each nostril up to 4 times a day for postnasal drip. General information on bronchial asthma was covered. Patient will monitor peak flow daily at a set time and again when symptoms of chest tightness, cough, dyspnea or wheezing occur. Patient will bring peak flow record to subsequent visits. The color of a traffic light will guide the patient's use of asthma medications: (1) Green means Go Zone. Peak flow: above 80% of personal best. Symptoms: Breathing is good, no cough or wheeze present, patient sleeps through the night and can work and play. Plan: Patient will continue the use of preventative medicine. (2) Yellow means Caution Zone. Peak flow: between 50-80% of personal best. Symptoms: Presence of first signs of a cold, exposure to known trigger, mild wheeze, tight chest and coughing especially night. Plan: Patient will add quick-relief medicine to preventative medicine. , (3) Red means Danger Zone. Peak flow: below 50% of personal best. Symptoms: Asthma is getting worse quickly and medicine is not helping, breathing is hard and fast, nose opens widely when breathing, ribs showing when breathing, and patient cannot speak in full sentences. Plan: Patient will get help from a physician immediately. Continue albuterol HFA 1 puff every 4 hrs as needed. She tried Breztri 160/9/4.8 mcg 2 puffs BID samples from Dr. Daniels but cannot afford the medication pricing. Symbicort 160/4.5 mcg is no longer on the formulary. Start Wixela Inhub 250/50 mcg 1 inhalation BID. Gargle after use. Continue albuterol HFA as needed. The patient does not know how to accurately administer the inhalers. Today, the patient was shown how to take these medications. The proper technique for delivering these medications was instructed. The patient expressed a clear understanding and demonstrated back how to use these medications. Without the proper technique, the patient will not reap the benefits of these medications as the contents will not reach the lower airways as intended to be. Alternatively, greater adherence to medication regimens have shown to lower rates of hospitalization and decrease total medical costs in patients with chronic medical conditions. Advocated influenza vaccination annually and pneumonia vaccination in 2055. Advocated weight loss through diet and exercise. Patient's ideal body weight according to height and gender is up to 135 lbs. Encouraged patient to adjust caloric intake to maintain/achieve ideal body weight, emphasizing on fruits, vegetables, whole grains, and fat-free or low-fat products. These include lean meats, poultry, fish, beans, eggs, and nuts and foods that are low in saturated fats, trans-fats, cholesterol, salt (sodium), and glycemic index. Stressed the importance of regular exercise up to the patient's capacity limits. In this case, we recommend 20 min daily walking, 2 days a week of resistance training. Patient to monitor BP daily and bring records to PCP for further management. Follow-up: one week after PFT Not available 01/12/2024 11:00:17 Plan of Treatment Reminders Order Date Submit Date Provider Last Modified By Organization Details Last Modified Time Details Appointments Telepsych iatry 20 2024 01:40P Dean Juares NP Not available Not available Not available Lab None recorded. Referral None recorded. Procedures None recorded. Surgeries None recorded. Imaging None recorded. Medication Orders albuterol sulfate HFA 90 mcg/actua tion aerosol inhaler 2022 023 [facility]/Pharmacy #[id number], [address], [place], [address], 02/07/2023 10:06:41 ipratropi um bromide 42 mcg (0.06 %) nasal spray 2022 023 [facility]/Pharmacy #[id number], [address] [place], [address], 02/07/2023 10:00:36 albuterol sulfate HFA 90 mcg/actua tion aerosol inhaler 2023 024 [facility]/Pharmacy #[id number], [address] [place], [address], 01/12/2024 11:00:41 Wixela Inhub 250 mcg-50 mcg/dose powder for inhalatio n 2023 024 [facility]/Pharmacy #[id number], [address] [place], [address], 01/12/2024 11:00:41 ipratropi um bromide 42 mcg (0.06 %) nasal spray 2023 024 [facility]/Pharmacy #[id number], [address] [place], [address], 01/12/2024 11:00:42 Patient TargetsNo targets recorded. Patient Instructions Encounter Date Encounter Id Patient Instructions Last Modified By Organization Details Last Modified Time 02/07/2023 [id number] complete PFT w/ post bronchodilator spirometry* - No auth needed Not available 01/02/2024 15:47:26 01/12/2024 [id number] complete PFT w/ post bronchodilator spirometry* BILL Not available 07/10/2024 04:20:33 Reason for Referral None Reported. Results Created Date Observation Date Name Description Value Unit Range Abnormal Flag Note LastModifiedBy Organization Detail LastModifiedTime 04/22/2001/06/2022 XR, chest , 1 view No observ ation record ed. [id number] Not Available 08/25/2022 13:32:14 04/22/20 22 03/27/2022 XR, chest , 1 view No observ ation record ed. [id number] Not Available 08/25/2022 13:32:14 04/22/20 22 01/06/2022 CT, chest , w/ contr ast No observ ation record ed. [id number] Not Available 08/25/2022 13:32:14 04/22/20 22 03/27/2022 CT, chest , w/ contr ast No observ ation record ed. [id number] Not Available 08/25/2022 13:32:14 05/01/20 22 04/30/2022 CT, chest , w/o contr ast No observ ation record ed. [id number] [facility] [address] [place], [address], 08/25/2022 13:32:14 07/28/19 23 07/28/2022 [place], zaynabif chris best study No observ ation record ed. [id number] [facility] [address] [place], [address], 08/25/2022 13:32:14 07/28/19 23 07/28/2022 CT, chest , w/o contr ast No observ ation record ed. [id number] [facility] [address] [place], [address], 08/25/2022 13:32:14 08/03/19 23 07/28/2022 FL, modif ied spike villafana ow study No observ ation record ed. [id number] [facility] ([facility]) [address] [place], [address], 08/25/2022 13:32:14 02/02/20 23 01/31/2023 compl ete PFT w/ post [facility] hodil ator michelle metry * No observ ation record ed. BARCODE [facility] ([facility]) [address] [place], [address], 02/01/2023 17:29:30 Result Notes None recorded. Problems Name Problem SNOMED Code Status Onset Date Resolution Date Notes Provider Name and Address Organization Details Recorded Time Posterior rhinorrhea 31071394 Active 2022 Not Available [facility] 4 17:07:19 Smoker 48800030 Active 2022 Not Available [facility] 4 17:07:19 Severe persistent asthma 508833576 Active 2022 Not Available [facility] 4 17:07:19 Notes:Medical History: Bipol ar depression Migraine headaches Recurrent acute otitis media Rhinitis with multiple environmental allergies and postnasal drip Eosinophils 50/uL IgE 259 IU/mL Alpha-1 antitryspin PiMM 135 mg% Severe persistent asthma Atrial fibrillation TYRELL Constipation-predominant IBS Iron deficiency Vit D deficiency Lupus since 2011 Lumbar facet arthropathy Lumbar bilateral foraminal stenosis Procedure History: C-sections 2015, 2019 MARTHA-BSO 2022 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 Procedures Surgical History Date Name Laterality Status Provider Name and Address Organization Details Recorded Time 11/19/19 23 Hysterectomy completed Irma Mohr MA [place] [facility] [place] 02/07/2023 09:43:48 section completed Not Available [facility] 08/25/2022 13:29:35 Imaging Results Imaging Date Name Status LastModified by Organization Details LastModified Time 07/28/2022 [place], modified barium swallow study completed [id number] [facility] [address] [place], [address], 08/25/2022 13:32:14 07/28/2022 CT, chest, w/o contrast completed [id number] [facility] [address] [place], [address], 08/25/2022 13:32:14 07/28/2022 FL, modified barium swallow study completed [id number] [facility] ([facility]) [address] [place], [address], 08/25/2022 13:32:14 04/30/2022 CT, chest, w/o contrast completed [id number] [facility] [address] [place], [address], 08/25/2022 13:32:14 01/06/2022 XR, chest, 1 view completed [id number] Information not available 08/25/2022 13:32:14 03/27/2022 XR, chest, 1 view completed [id number] Information not available 08/25/2022 13:32:14 01/06/2022 CT, chest, w/ contrast completed [id number] Information not available 08/25/2022 13:32:14 03/27/2022 CT, chest, w/ contrast completed [id number] Information not available 08/25/2022 13:32:14 01/31/2023 complete PFT w/ post bronchodilator spirometry* completed [facility] ([facility]) [address] [place], [address], 02/01/2023 17:29:30 Procedure Notes None recorded. Medical Equipment None Reported. Allergies Allergen ID Allergen Name Allergen Category Reaction Reaction Severity Criticality Documentation Date Start Date Code Code System Note Provider Name and Address Organization Details Recorded Time 80618 Macrobid medicatio n Not available Not available Not available 08/25/2022 50080 1 RxNorm Not Available [facility] 3 13:32:12 Medications Name Sig Start Date Stop Date Status Note LastModified by Organization Details LastModified Time cyclobenzap rine 10 mg tablet TAKE 1 TABLET BY MOUTH EVERY DAY AT BEDTIME NEEDED active Not Available Not Available No t Available medroxyprog esterone 10 mg tablet TAKE 1 TABLET BY MOUTH EVERY DAY FOR 10 DAYS 04/22 completed Not Available Not Available Not Available fluconazole 100 mg tablet TAKE 1 TABLET BY MOUTH ONCE DAILY 02/19 completed Not Available Not Available Not Available albuterol sulfate 0.63 mg/3 mL solution for nebulizatio n Inhale by inhalatio n route. 10/22 completed Not Available Not Available Not Available prednisone 10 mg tablet 04/09 completed Not Available Not Available Not Available doxycycline hyclate 100 mg capsule TAKE 1 CAPSULE BY MOUTH EVERY 12 HOURS FOR 5 DAYS active Not Available Not Available No t Available clindamycin HCl 300 mg capsule TAKE 1 CAPSULE BY MOUTH FOUR TIMES A DAY UNTIL GONE 02/07 completed Not Available Not Available Not Available azithromyci n 250 mg tablet TAKE 2 TABLETS BY MOUTH TODAY, THEN TAKE 1 TABLET DAILY FOR 4 DAYS 05/15 completed Not Available Not Available Not Available ibuprofen 800 mg tablet TAKE 1 TABLET PO EVERY 8 HOURS PRN FOR PAIN. TAKE WITH FOOD 04/02 completed Not Available Not Available Not Available fluconazole 150 mg tablet TAKE 1 TABLET BY MOUTH EVERY 72 HOURS A SINGLE DOSE active Not Available Not Available No t Available metoprolol succinate ER 50 mg tablet,exte nded release 24 hr TAKE 1 TABLET BY MOUTH EVERY DAY active Not Available Not Available No t Available albuterol sulfate 1.25 mg/3 mL solution for nebulizatio n Inhale 3 mL 3 times a day by inhalatio n route. 10/22 completed Not Available Not Available Not Available hydrocodone 5 mg-acetamin ophen 325 mg tablet TAKE 1 TABLET BY MOUTH EVERY 6 HOURS NEEDED FOR PAIN active Not Available Not Available No t Available sumatriptan 25 mg tablet TAKE 1 TABLET BY MOUTH NEEDED active Not Available Not Available No t Available ondansetron HCl 4 mg tablet TAKE 1 TABLET BY MOUTH EVERY 8 HOURS NEEDED FOR NAUSEA/VO MITING 02/07 completed Not Available Not Available Not Available prednisone 20 mg tablet TAKE 3 TABLETS BY MOUTH ONCE DAILY FOR 5 DAYS 11/16 completed Not Available Not Available Not Available metoprolol succinate ER 100 mg tablet,exte nded release 24 hr TAKE 1 TABLET BY MOUTH EVERY DAY 01/11 completed Not Available Not Available Not Available terconazole 0.8 % vaginal cream 10/08 completed Not Available Not Available Not Available Accu-Chek Softclix Lancets USE TO TEST TWICE DAILY 11/16 completed Not Available Not Available Not Available acetaminoph en 300 mg-codeine 30 mg tablet TAKE 1 TABLET BY MOUTH EVERY 6 HOURS NEEDED FOR PAIN 02/07 completed Not Available Not Available Not Available valacyclovi r 500 mg tablet TAKE 1 TABLET BY MOUTH EVERY DAY active Not Available Not Available No t Available sulfamethox azole 800 mg-trimetho prim 160 mg tablet TAKE 1 TABLET BY MOUTH TWICE A DAY FOR 7 DAYS 05/15 completed Not Available Not Available Not Available omeprazole 40 mg capsule,del ayed release TAKE 1 CAPSULE BY MOUTH EVERY DAY active Not Available Not Available No t Available tramadol 50 mg tablet TAKE 1 TABLET BY MOUTH EVERY 12 HOURS NEEDED active Not Available Not Available No t Available acetaminoph en 500 mg tablet TAKE 1 TABLET BY MOUTH EVERY 6 HOURS NEEDED FOR PAIN 02/07 completed Not Available Not Available Not Available ketorolac 10 mg tablet TAKE 1 TABLET BY MOUTH 4 TIMES DAILY FOR 5 DAYS 02/19 completed Not Available Not Available Not Available meloxicam 7.5 mg tablet TK 1 T PO ONCE D WITH FOOD 04/02 completed Not Available Not Available Not Available hydrocortis one 2.5 % topical cream with perineal applicator APPLY TOPICALLY TO THE AFFECTED AREA TWICE DAILY 02/19 completed Not Available Not Available Not Available famotidine 20 mg tablet TAKE 1 TABLET BY MOUTH TWICE A DAY active Not Available Not Available No t Available benzonatate 100 mg capsule TAKE 1 CAPSULE BY MOUTH ONCE EVERY 8 HOURS S NEEDED FOR COUGH/CON GESTION 11/16 completed Not Available Not Available Not Available cephalexin 500 mg capsule 04/09 completed Not Available Not Available Not Available ferrous sulfate 325 mg (65 mg iron) tablet TAKE 1 TABLET BY MOUTH EVERY DAY active Not Available Not Available No t Available tobramycin 0.3 % eye drops 02/07 completed Not Available Not Available Not Available triamcinolo ne acetonide 0.1 % topical ointment APPLY 1 APPLICATI ON TOPICALLY TO RIGHT ARM EVERY 12 HOURS NEEDED 05/15 completed Not Available Not Available Not Available docusate sodium 100 mg capsule TAKE 1 CAPSULE BY MOUTH EVERY DAY 02/19 completed Not Available Not Available Not Available metoprolol succinate ER 25 mg tablet,exte nded release 24 hr TAKE 1 TABLET BY MOUTH EVERY DAY 04/22 completed Not Available Not Available Not Available ergocalcife rol (vitamin D2) 1,250 mcg (50,000 unit) capsule TAKE 1 CAPSULE BY MOUTH ONCE WEEKLY active Not Available Not Available No t Available ibuprofen 600 mg tablet TAKE 1 TABLET (600 MG) BY MOUTH EVERY 6 HOURS NEEDED FOR PAIN active Not Available Not Available No t Available levofloxaci n 500 mg tablet TAKE 1 TABLET BY MOUTH EVERY DAY 01/21 completed Not Available Not Available Not Available methylpredn isolone 4 mg tablets in a dose pack TAKE 6 TABLETS ON DAY 1 DIRECTED ON PACKAGE AND DECREASE BY 1 TAB EACH DAY FOR A TOTAL OF 6 DAYS 05/15 completed Not Available Not Available Not Available albuterol sulfate HFA 90 mcg/actuati on aerosol inhaler INHALE 1 PUFF BY MOUTH EVERY 4 HOURS NEEDED active Not Available Not Available No t Available diltiazem 30 mg tablet TAKE 1 TABLET BY MOUTH TWICE A DAY active Not Available Not Available No t Available ipratropium bromide 42 mcg (0.06 %) nasal spray SPRAY 1 SPRAY INTO NOSTRILS 4 TIMES A DAY NEEDED. active Not Available Not Available No t Available ondansetron 4 mg disintegrat ing tablet DISSOLVE 1 TABLET (4 MG) UNDER THE TONGUE EVERY 8 HOURS NEEDED FOR NAUSEA AND VOMITING active Not Available Not Available No t Available cefdinir 300 mg capsule TAKE 1 CAPSULE BY MOUTH EVERY 12 HOURS FOR 7 DAYS 11/16 completed Not Available Not Available Not Available fluticasone propionate 50 mcg/actuati on nasal spray,suspe nsion INHALE 1 SPRAY INTO NOSTRIL 2 TIMES PER DAY IN EACH NOSTRIL active Not Available Not Available No t Available sertraline 50 mg tablet TAKE 1 TABLET BY MOUTH EVERY DAY AFTER A MEAL active Not Available Not Available No t Available naproxen 500 mg tablet 04/09 completed Not Available Not Available Not Available amoxicillin 875 mg-potassiu m clavulanate 125 mg tablet TAKE 1 TABLET BY MOUTH EVERY 12 HOURS FOR 10 DAYS 02/19 completed Not Available Not Available Not Available amoxicillin 500 mg-potassiu m clavulanate 125 mg tablet TAKE 1 TABLET BY MOUTH EVERY 8 HOURS FOR 10 DAYS 01/11 completed Not Available Not Available Not Available escitalopra m 10 mg tablet active Not Available Not Available Not Available Iron (ferrous sulfate) 10/21 completed Not Available Not Available Not Available Symbicort 160 mcg-4.5 mcg/actuati on HFA aerosol inhaler TAKE 2 PUFFS BY MOUTH TWICE A DAY 01/11 completed Not Available Not Available Not Available Linzess 145 mcg capsule TAKE 1 CAPSULE BY MOUTH EVERY DAY 02/07 completed Not Available Not Available Not Available Flonase Allergy Relief 01/11 completed Not Available Not Available Not Available Linzess 72 mcg capsule TAKE 1 CAPSULE BY MOUTH EVERY DAY active Not Available Not Available No t Available Accu-Chek Guide test strips USE TO TEST TWICE DAILY 02/19 completed Not Available Not Available Not Available Wixela Inhub 250 mcg-50 mcg/dose powder for inhalation INHALE 1 PUFF BY MOUTH TWICE A DAY active Not Available Not Available No t Available Accu-Chek Guide Me Glucose Meter USE TO TEST TWICE DAILY 11/16 completed Not Available Not Available Not Available COVID-19 test specimen collection TEST DIRECTED 10/21 completed Not Available Not Available Not Available Roxann Aerosphere 160 mcg-9mcg-4. 8mcg/actuat ion HFA aerosol inhaler Inhale 2 puffs twice a day by inhalatio n route. 02/07 completed Not Available Not Available Not Available Flowflex COVID-19 Antigen Home Test kit USE as directed ON package FOR AT home CoVID testing NEEDED 11/16 completed Not Available Not Available Not Available Vitals Date Recorded Body mass index (BMI) Heart rate Body height Oxygen saturation Oxygen saturation in Arterial blood by Pulse oximetry Heart rate Respiratory rate Body temperature Body weight Systolic blood pressure Diastolic blood pressure Provider Name and Address Organization Details Last Updated DateTime 3 26 kg/m2 72 /min 165.1 cm 97 % 97 % 72 /min 15 /min 98.6 [degF] 04425.4 1 g 110 mm[Hg] 66 mm[Hg] Not Available [facility] 3 13:30:03 Date Recorded Body mass index (BMI) Heart rate Body height Oxygen saturation Oxygen saturation in Arterial blood by Pulse oximetry Heart rate Respiratory rate Body temperature Body weight Systolic blood pressure Diastolic blood pressure Provider Name and Address Organization Details Last Updated DateTime 3 26 kg/m2 61 /min 165.1 cm 97 % 97 % 61 /min 15 /min 98.2 [degF] 07139.4 1 g 108 mm[Hg] 60 mm[Hg] Not Available [facility] 3 13:30:04 Date Recorded Body height Oxygen saturation Oxygen saturation in Arterial blood by Pulse oximetry Heart rate Body temperature Body weight Systolic blood pressure Diastolic blood pressure Provider Name and Address Organization Details Last Updated DateTime 2 165.1 cm 91 % 91 % 79 /min 98.1 [degF] 01753.2 5 g 120 mm[Hg] 68 mm[Hg] Not Available [facility] 3 13:30:03 Date Recorded Body height Body mass index (BMI) Body weight Body temperature Systolic blood pressure Diastolic blood pressure Provider Name and Address Organization Details Last Updated DateTime 3 165.1 cm 25 kg/m2 14481.8 6 g 98.1 [degF] 110 mm[Hg] 68 mm[Hg] Irma Mohr MA [facility] [employer] [facility] 3 09:47:14 Date Recorded Heart rate Oxygen saturation Oxygen saturation in Arterial blood by Pulse oximetry Heart rate Respiratory rate Provider Name and Address Organization Details Last Updated DateTime 3 59 /min 99 % 99 % 59 /min 15 /min Ruslan Reid MD [address] [place] [address], [place] [address], [place], [address], [facility] [employer] 3 10:07:55 Date Recorded Body height Body mass index (BMI) Body weight Oxygen saturation Oxygen saturation in Arterial blood by Pulse oximetry Body temperature Heart rate Systolic blood pressure Diastolic blood pressure Provider Name and Address Organization Details Last Updated DateTime 4 165.1 cm 25 kg/m2 88352.8 6 g 98 % 98 % 98.1 [degF] 87 /min 118 mm[Hg] 68 mm[Hg] Fabian Lowe CMA [place] [facility] [employer] 4 10:40:20 Social History Question Answer Notes LastModified by Organization Details LastModified Time Tobacco Smoking Status Former Smoker quit 2 months ago Not Available [employer] 08/25/2022 13:29:33 What Is Your Level Of Alcohol Consumption? None MIGRATION.0301 [id number] Information not available 08/25/2022 What Is Your Level Of Caffeine Consumption? Occasional MIGRATION.0301 [id number] Information not available 08/25/2022 In The 14 Days Before Symptom Onset, Have You Had Close Contact With A Laboratory-confi rmed COVID-19 While That Case Was Ill? No MIGRATION.0301 [id number] Information not available 08/25/2022 In The 14 Days Before Symptom Onset, Have You Had Close Contact With A Person Who Is Under Investigation For COVID-19 While That Person Was Ill? No MIGRATION.0301 [id number] Information not available 08/25/2022 What Type Of Diet Are You Following? REGULAR MIGRATION.0301 [id number] Information not available 08/25/2022 Do You Have An Electrostatic Air Filter? 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 No MIGRATION.0301 [id number] Information not available 08/25/2022 Do You Have A Humidifier? Yes MIGRATION.0301 [id number] Information not available 08/25/2022 Where Do You Live? [facility] MIGRATION.0301 [id number] Information not available 08/25/2022 Do You Have Moisture Problems In Your Home? No MIGRATION.0301 [id number] Information not available 08/25/2022 What Was The Date Of Your Most Recent Tobacco Screening? 02/07/2023 Information not available 02/07/2023 Do You Have Any Pets? Yes MIGRATION.0301 [id number] Information not available 08/25/2022 Do You Have Smoke And Carbon Monoxide Detectors In Your Home? Yes MIGRATION.0301 [id number] Information not available 08/25/2022 At What Age Did You Start Smoking Tobacco? 13 MIGRATION.0301 227886 Information not available 08/25/2022 Are You Passively Exposed To Smoke? No MIGRATION.0301 [id number] Information not available 08/25/2022 How Much Tobacco Do You Smoke? No MIGRATION.0301 975279 Information not available 08/25/2022 Do You Feel Stressed (tense, Restless, Nervous, Or Anxious, Or Unable To Sleep At Night)? [id number] MIGRATION.0301 [id number] Information not available 08/25/2022 Do You Use Any Illicit Or Recreational Drugs? Yes Marijuana MIGRATION.030 [id number] Information not available 08/25/2022 Do You Use Sunscreen Routinely? No MIGRATION.0301 [id number] Information not available 08/25/2022 How Many Years Have You Smoked Tobacco? 16 MIGRATION.030 474785 Information not available 08/25/2022 Have You Recently Traveled Abroad? No MIGRATION.0301 186606 Information not available 08/25/2022 Do You Have Any Dietary Restrictions? No MIGRATION.0301 915893 Information not available 08/25/2022 Sex: Female Functional Status Question Answer Note LastModified by Organizat ion Details LastModified Time What is your exercise level? Heavy [id number] Information not available 08/25/2022 Mental Status None recorded. Family History Relationship Description Onset Age of this Age Resolved Age Notes LastModified by Organization Details LastModified Time Father Family history of malignant neoplasm MIGRATION.260 [id number] Not available 08/25/2022 13:29:36 Father Blood coagulation disorder MIGRATION.127 [id number] Not available 08/25/2022 13:29:36 Father Diabetes mellitus MIGRATION.135 [id number] Not available 08/25/2022 13:29:36 Father Chronic obstructive pulmonary disease MIGRATION.699 [id number] Not available 08/25/2022 13:29:36 Brother Asthma MIGRATION.240 [id number] Not available 08/25/2022 13:29:36 Sister Asthma MIGRATION.252 [id number] Not available 08/25/2022 13:29:36 Paternal Grandmother Asthma MIGRATION.125 [id number] Not available 08/25/2022 13:29:36 Maternal Grandmother Asthma MIGRATION.969 [id number] Not available 08/25/2022 13:29:36 Medical History Condition Response CHEST XRAY Y BLINDNESS N KIDNEY STONES N MRSA N CARPAL TUNNEL SYNDROME N LUNG DISEASE/DISORDER Y HISTORY OF DRUG ABUSE N RADIATION / CHEMOTHERAPY N COPD N SPORTS INJURY N ANKLE PAIN N BLOOD DISEASES Y SCHIZOPHRENIA N SHINGLES N SHOULDER PAIN N BOWEL PROBLEMS N DEPRESSION (INCLUDING POST ) N STROKE/TIA N CHEST CT Y ULCERS N KNEE PAIN N BENIGN PROSTATIC HYPERPLASIA N OBESITY N GERD/NAUSEA N ANEURYSM N URINARY/BLADDER/KIDNEY PROBLEMS N CORONARY ARTERY DISEASE (CAD) N ADDICTION CONCERNS N USE OF BLOOD THINNERS N SKIN PROBLEMS N EMPHYSEMA N SHORTNESS OF BREATH Y MUSCLE,JOINT OR BONE PROBLEMS N DVT N STOMACH ULCERS N BLOOD CLOTS N USE OF NSAIDS N CONCUSSION OR SPINAL TRAUMA N NEUROPATHY N AIDS/HIV N FRACTURES N HYPERTENSION N ELBOW PAIN N TOURETTE'S N Metal allergy N ANXIETY DISORDER N BLOOD TRANSFUSION N ANEMIA/BLOOD DISORDER N BIPOLAR DISORDER N BRONCHITIS N OSTEOARTHRITIS N TUBERCULOSIS N FOOT PROBLEM N HEART VALVE DISORDERS N ALLERGIES/HAYFEVER N SOFT TISSUE INJURY N INFECTIOUS DISEASE N HEART ARRHYTHMIA N INSOMNIA N HIGH CHOLESTEROL / HYPERLIPIDEMIA N RHEUMATOID ARTHRITIS N EDEMA N CHRONIC PAIN SYNDROME N CAROTID BLOCKAGE N BACK / NECK PROBLEMS N HAVE YOU [facility] ? N BURSITIS N HERNIATED DISC N DIALYSIS N FIBROMYALGIA N OSTEOPOROSIS Y ARTHRITIS Y NO SIGNIFICANT PAST MEDICAL HISTORY N PERIPHERAL NEUROPATHY N DIABETES, TYPE Y HEARTBURN / REFLUX N HEPATITIS / LIVER DISEASE Y GOUT N ALZHEIMER'S DISEASE N SLEEP DISORDER N HERPES N HEADACHES/MIGRAINES N SEIZURES/EPILEPSY N VASCULAR DISEASE N Blood Disorder N HIP PAIN N DIZZINESS N HEAD TRAUMA OR INJURY N HEART DISEASE/HEART PROBLEMS N MULTIPLE SCLEROSIS N CANCER: SPECIFY N CARDIAC ARRHYTHMIA N ANESTHESIA COMPLICATIONS N PNEUMONIA Y ATRIAL FIBRILLATION N AUTOIMMUNE DISEASE N Gynecological HistoryNo gynecological history recorded. Obstetrics History GPAL:G 0 P 0 0 0 0 Immunizations Vaccine Type Date Status Note Provider Nam e and Address Organization Details Recorded Time COVID-19, mRNA, LNP-S, PF, 30 mcg/0.3 mL dose 04/20/2021 completed Not Available [facility] 4 17:07:19 COVID-19, mRNA, LNP-S, PF, 30 mcg/0.3 mL dose 03/30/2021 completed Not Available [facility] 4 17:07:19 Past Encounters Encounter ID Performer Location Encounter Start Date Encounter Closed Date Diagnosis/Indication Diagnosis SNOMED-CT Code Diagnosis ICD10 Code Diagnosis Note [id number] [facility] [address] [place] [address] 04/09/2021 00:00:00 04/09/2021 09:36:09 [id number] [facility] [address] [place] [address] 04/23/2021 00:00:00 04/23/2021 11:07:07 [id number] [facility] [address] [address] 10/08/2021 00:00:00 10/08/2021 15:19:33 [id number] [facility] [address] [address] 10/22/2021 00:00:00 10/22/2021 15:34:32 [id number] [facility] [address] [address] 04/22/2022 00:00:00 04/22/2022 13:17:16 [id number] [facility] [address] [address] 07/15/2022 00:00:00 07/15/2022 16:05:23 [id number] [facility] [address] [address] 08/05/2022 00:00:00 08/05/2022 15:35:19 [id number] Ruslan Reid MD [facility] [address] [address] 02/07/2023 09:27:31 02/08/2023 10:11:10 Posterior rhinorrhea 40022602 R09.82 Severe per sistent asthma 169218646 J45.50 [id number] Ruslan Reid MD [facility] [address], [address] [place] [address] 01/12/2024 10:29:39 01/13/2024 08:21:56 Severe persistent asthma 870784998 J45.50 Posterior rhinorrhea 758 [address]286 R09.82 [id number] Karie Juares NP [facility] [address] [place] [address] 07/05/2024 14:05:19 07/05/2024 17:28:27 Health Concerns Section Related Observation LastModified by Organization Detai ls LastModified Time None Recorded Concern Status LastModified by Organization Details LastModified Time None Recorded Advance Directives Directive None Recorded Payers Encounter Date Sequence Insurance Name Policy Number Policy Barrett Covered Member ID Barrett Member ID Guarantor Name 02/07/2023 1 [place] [id number] Yu D Daniel [id number] Yu D Daniel 02/07/2023 2 [place] [employer] [facility] [employer] Yu D Daniel [id number] [place] 01/12/2024 1 [place] [id number] 1 [place] [id number] Yu D Daniel 01/12/2024 2 [place] [employer] Yu D Daniel [id number] [place] Notes Date Note Type Note Provider Name and Address Organization Details Recorded Time 02/07/2023 text/html Primary care/Ref erring provider: Mervin Kevin, MDPatigerardo is here to go over her asthma management.Initial development of shortness of breath: 2005Duration of shortness of breath: 18 yearsCondition of shortness of breath: stableTiming of shortness of breath: morning and bedtimeFrequency: up to 10 times a dayLimits activities: yesAggravating factors: walking, lifting 20 lbs objectsAlleviating factors: restModified [employer] (mMRC) Dyspnea Scale - Grade 2Grade 0 ? I only get breathless with strenuous exercise? .Grade 1 ? I get short of breath when hurrying on the level or walking up a slight hill? .Grade 2 ? I walk slower than people of the same age on the level because of breathlessness or have to stop for breath when walking at my own pace on the level? .Grade 3 ? I stop for breath after walking about 100 yards or after a few minutes on the level? .Grade 4 ? I am too breathless to leave the house? or ? I am breathless when dressing? .Treatment history:Patient's personal best peak flow remains at 380 L/min.Generic albuterol HFA 2 puffs every 4 hrs as needed since 2004Advair 500/50 2 puffs BID 2006-2008Symbicort 80/4.5 mcg 2 puffs 4 times a day since ymbicort 160/4.5 mcg 2 puffs 4 times a day since actrim 800/160 mg BID 10/25/21 - 11/03/21Levofloxacin 500 mg/day 01/07/22 - 01/13/22Cefdinir 300 mg q 12 h 03/11/22 - 03/17/22Azithromycin 250 mg 03/27/22 - 03/31/22Amoxicillin 500 mg 05/17/22-05/23/22Cefdin ir 300 mg 07/02/22-07/08/22Other symptoms:Productive cough: yellowish greenWheezing: yesChest tightness: yesOrthopnea: 5-pillow habitFrequent throat clearing or swallowing: noPalpitations: noHeartburn: yesDysphagia: yes if it's not jello consistencyEdema: yesEnvironmental exposures:Nicotine smoke: 1 ppd 2003-02/2022 (quit 5 years during 5 pregnancies) = 12 pack yearsPaint: noDye: noDust mites: yesMold: noDamp basement: noWood burning stove: noAnimal dander: dogCockroaches: noPollen: yesArsenic: noAsbestos: noBeryllium: noCadmium: noChromium: noCoal smoke: noDiesel fumes: noNickel: noSilica: noSoot: noEPWORTH SLEEPINESS SCALE (ESS)CHANCE OF DOZING SCORE0 = would never doze1 = slight chance of dozing2 = moderate chance of dozing3 = high chance of dozingSITUATION AND CHANCE OF DOZINGSitting and reading - 3Watching television - 2Sitting inactive in a public place (e.g. a theater or meeting) - 1As a passenger in a car for an hour without a break - 2Lying down to rest in the afternoon when circumstances permit - 3Sitting and talking to someone - 1Sitting quietly after lunch without alcohol - 2In a car, while stopped for a few minutes in the traffic - 1TOTAL SCORE 15Subjectively, patient has a moderate chance of dozing. Ruslan Reid MD [address] [place] [address], [facility] [address], [place], [address], [place] [facility] [employer] 08/17/2023 14:56:20 01/12/2024 text/html Primary care/Ref erring provider: Mervin Kevin, MDPatient is here to go over her asthma management.Initial development of shortness of breath: 2005Duration of shortness of breath: 19 yearsCondition of shortness of breath: stableTiming of shortness of breath: morning and bedtimeFrequency: up to 10 times a dayLimits activities: yesAggravating factors: walking, lifting 20 lbs objectsAlleviating factors: restModified [employer] (mMRC) Dyspnea Scale - Grade 2Grade 0 ? I only get breathless with strenuous exercise? .Grade 1 ? I get short of breath when hurrying on the level or walking up a slight hill? .Grade 2 ? I walk slower than people of the same age on the level because of breathlessness or have to stop for breath when walking at my own pace on the level? .Grade 3 ? I stop for breath after walking about 100 yards or after a few minutes on the level? .Grade 4 ? I am too breathless to leave the house? or ? I am breathless when dressing? .Treatment history:Patient's personal best peak flow remains at 380 L/min.Generic albuterol HFA 2 puffs every 4 hrs as needed since 2004Advair 500/50 1 inhalation BID 2006-2008Symbicort 80/4.5 mcg 2 puffs 2 times a day 02/2021 - ymbicort 160/4.5 mcg 2 puffs 2 times a day 08/2021 - 07/2023Wixela Inhub 250/50 mcg 1 inhalation BID since 4Bactrim 800/160 mg BID 10/25/21 - 11/03/21Levofloxacin 500 mg/day 01/07/22 - 01/13/22Cefdinir 300 mg q 12 h 03/11/22 - 03/17/22Azithromycin 250 mg 03/27/22 - 03/31/22Amoxicillin 500 mg 05/17/22-05/23/22Cefdin ir 300 mg 07/02/22-07/08/22Other symptoms:Productive cough: yellowish greenWheezing: yesChest tightness: yesOrthopnea: 5-pillow habitFrequent throat clearing or swallowing: noPalpitations: noHeartburn: yesDysphagia: yes if it's not jello consistencyEdema: yesEnvironmental exposures:Nicotine smoke: 1 ppd 2003-02/2022 (quit 5 years during 5 pregnancies) = 12 pack yearsPaint: noDye: noDust mites: yesMold: noDamp basement: noWood burning stove: noAnimal dander: dogCockroaches: noPollen: yesArsenic: noAsbestos: noBeryllium: noCadmium: noChromium: noCoal smoke: noDiesel fumes: noNickel: noSilica: noSoot: noEPWORTH SLEEPINESS SCALE (ESS)CHANCE OF DOZING SCORE0 = would never doze1 = slight chance of dozing2 = moderate chance of dozing3 = high chance of dozingSITUATION AND CHANCE OF DOZINGSitting and reading - 3Watching television - 2Sitting inactive in a public place (e.g. a theater or meeting) - 0As a passenger in a car for an hour without a break - 2Lying down to rest in the afternoon when circumstances permit - 3Sitting and talking to someone - 0Sitting quietly after lunch without alcohol - 1In a car, while stopped for a few minutes in the traffic - 0TOTAL SCORE 11Subjectively, patient has a moderate chance of dozing. Ruslan Reid MD [address] [place] [address], [facility] [address], [place], [address], [place] [facility] [employer] 01/12/2024 11:03:36 OBGyn Episode No OBEpisode recorded.
--- OUTSIDE RECORDS SUMMARY | 2024-07-20 05:48 | XMS_ITS | CONTINUITY OF CARE DOCUMENT ---
Author Name qianlaurel qianlaurel Address Unknown Organization [facility] Address [address] [place] [address] Phone [phone] Care Team Providers Care Operator Automated Process Name Role Phone Carisa Doe MD Unavailable ANA LAURA SANTIAGO MD Unavailable [phone] ANA LAURA SANTIAGO MD Unavailable [phone] PROBLEMS Condition Status Date Provider Notes Lupus active Carisa Doe MD Chest pain-type to be determined active Usama Doe MD Syncope and collapse active Carisa gaffney MD Palpitations active Carisa Doe MD Asthma active Carisa Doe MD (Hist ory of) Cardiology examination active Carisa murray MD ENCOUNTERS Date Type Provider Location Encounter Diag nosis - In-person encounter Office Visit Carisa Doe MD [place] [facility] - In-person encounter Office Visit Carisa Doe MD [place] [facility] Chest pain-type to be determinedLupus - In-person encounter Office Visit Carisa Doe MD [place] [facility] - In-person encounter Office Visit Carisa Doe MD [place] [facility] - In-person encounter Office [place] [facility] - In-person encounter Office Visit Carisa Doe MD [place] [facility] - In-person encounter Office Visit Carisa Doe MD [place] [facility] - In-person encounter Office Visit Carisa Doe MD [place] [facility] - In-person encounter Office Visit Carisa Doe MD [place] [facility] Cardiology examinationAsthmaPalpitationsSyncope and collapse VITAL SIGNS Date Observation Value Provider Body Mass Index (Ratio) 24.12 kg/m2 Richard Doe MD blood pressure, diastolic 67 mm[Hg] Li nkLogic blood pressure, systolic 96 mm[Hg] Janice kLogic blood pressure, diastolic 67 mm[Hg] Hannah yla [facility] blood pressure, systolic 96 mm[Hg] Suzy la [facility] blood pressure, cuff size regular Hannah ylyeimy [facility] oxygen saturation, oximetry 98 % Shannon [facility] pulse rate 74 /min Shannon [facility] weight E&M 154 [lb_av] Shannon [facility] height E&M 67 [in_i] [facility] Body Mass Index (Ratio) 23.96 kg/m2 [facility] blood pressure, diastolic -1 mm[Hg] Li nkLogic blood pressure, systolic 97 mm[Hg] Janice kLogic blood pressure, diastolic 60 mm[Hg] Ja rret blood pressure, systolic 97 mm[Hg] Jar ret pulse rate 62 /min Freddy erda y blood pressure, cuff size regular Ja rret oxygen saturation, oximetry 98 % Freddy respiratory rate E&M 16 /min Freddy weight E&M 153 [lb_av] Freddy y height E&M 67 [in_i] Freddy y Body Mass Index (Ratio) 24.43 kg/m2 Ambrocio gao [place] blood pressure, cuff size regular Jayden flowers Vu blood pressure, diastolic 65 mm[Hg] Ta bitha Vu blood pressure, systolic 108 mm[Hg] Tab itha Vu oxygen saturation, oximetry 99 % Karol Vu pulse rate 87 /min Karol Vu weight E&M 156 [lb_av] Karol Vu respiratory rate E&M 12 /min Karol Vu height E&M 67 [in_i] Karol Vu Body Mass Index (Ratio) 23.18 kg/m2 Richard Doe MD blood pressure, diastolic 62 mm[Hg] Gita avilaLogmercy blood pressure, systolic 112 mm[Hg] Janice Briggs blood pressure, diastolic 62 mm[Hg] St pete [place] blood pressure, systolic 112 mm[Hg] Sta manav [place] oxygen saturation, oximetry 98 % Kaitlinmanav [place] pulse rate 65 /min Kaitlinmanav [place] respiratory rate E&M 18 /min Kaitlin petersen weight E&M 148 [lb_av] Kaitlinmanav [place] height E&M 67 [in_i] Kaitlinmanav [place] Body Mass Index (Ratio) 24.12 kg/m2 Richard Doe MD blood pressure, diastolic -1 mm[Hg] Gita avilaLogmercy blood pressure, systolic 101 mm[Hg] Janice [place] blood pressure, diastolic 60 mm[Hg] chula Harrison blood pressure, systolic 101 mm[Hg] She benny Harrison blood pressure, cuff size regular Sh chula Harrison pulse rate 81 /min Lety Harrison respiratory rate E&M 20 /min Lety Harrison oxygen saturation, oximetry 98 % Lety Harrison weight E&M 154 [lb_av] Lety Harrison height E&M 67 [in_i] Lety Harrison Body Mass Index (Ratio) 23.87 kg/m2 Richard Doe MD blood pressure, diastolic 57 mm[Hg] duanekalpesh [place] blood pressure, systolic 99 mm[Hg] Ying [place] oxygen saturation, oximetry 99 % Kaitlin [place] pulse rate 63 /min Kaitlinmanav [place] respiratory rate E&M 18 /min Kaitlin petersen weight E&M 152.4 [lb_av] Kaitlinmanav [place] height E&M 67 [in_i] Kaitlin [place] Body Mass Index (Ratio) 23.96 kg/m2 Richard Doe MD blood pressure, diastolic 68 mm[Hg] Ri racquel Arnold blood pressure, systolic 109 mm[Hg] Suraj nato Barrett blood pressure, cuff size regular Ri racquel Arnold respiratory rate E&M 16 /min Lito Barrett oxygen saturation, oximetry 98 % Ro Barrett pulse rate 100 /min Ro Aguillonjoelle son weight E&M 153 [lb_av] Ro Aguilloner son height E&M 67 [in_i] Ro Sesay son Body Mass Index (Ratio) 22.55 kg/m2 Richard Doe MD blood pressure, cuff size large Ke rri Beth blood pressure, diastolic 62 mm[Hg] Ke rri Gruenenfelder blood pressure, systolic 104 mm[Hg] Trav ri Gruenenfelder oxygen saturation, oximetry 93 % Dorcas Gruenenfelder respiratory rate E&M 14 /min Dorcas guyenenfelder pulse rate 93 /min Dorcas Craven lder weight E&M 144 [lb_av] Dorcas Grpoloe lder height E&M 67 [in_i] Dorcas Quinteroe lder weight E&M 147 [lb_av] Zacarias Marks al Body Mass Index (Ratio) 23.02 kg/m2 Kirill izaiah Feliz blood pressure, cuff size regular Ke rri Rauluenenateelder blood pressure, diastolic 56 mm[Hg] Ke rri Gruenenfelder blood pressure, systolic 82 mm[Hg] Trav Barriganenateelder oxygen saturation, oximetry 98 % Dorcas Dozierer respiratory rate E&M 14 /min Dorcas calderanfelder pulse rate 71 /min Dorcas Craven lder weight E&M 147 [lb_av] Dorcas Craven lder height E&M 67 [in_i] Dorcas Barriganemylene er ALLERGIES Allergy Name Onset Date Reaction Criticality Status MACROBID High Criticality active HISTORY OF MEDICATION USE Medication Status Instructions Dates Provider Indications Com ments diltiazem HCl 30 mg tablet active TAKE 1 TABLET BY MOUTH TWICE A DAY Carisa Doe MD metoprolol succinate 50 mg tablet extended release 24 hr active TAKE 1 TABLET BY MOUTH ONCE DAILY Carisa Doe MD Accu-Chek Guide test strips strip active Lety Harrison Accu-Chek Guide Me Glucose Mtr active Lety Harrison Symbicort 160-4.5 mcg/actuation HFA aerosol inhaler active Letyfabi Harrison azithromycin 250 mg tablet active Lety Christy acetaminophen 500 mg tablet active Lety Christy ibuprofen 600 mg tablet active Lety Harrison cyclobenzaprine 10 mg tablet active Lety Harrison ondansetron 4 mg tablet,disintegrati ng active Lety Christy Accu-Chek Softclix Lancets active Lety Christy ipratropium bromide 42 mcg (0.06 %) spray,non-aerosol active Lety Harrison benzonatate 100 mg capsule active Lety Harrison albuterol sulfate 90 mcg/actuation HFA aerosol inhaler active Lety Christy famotidine 20 mg tablet active Letyfabi Harrison levofloxacin 500 mg tablet active TAKE 1 TABLET BY MOUTH EVERY DAY Lety Harrison omeprazole 40 mg capsule,delayed release(DR/EC) active Lety Christy tramadol 50 mg tablet active Lety Christy valacyclovir 500 mg tablet active Lety Christy metoprolol succinate 50 mg tablet extended release 24 hr completed - Carisa Doe MD sumatriptan succinate 25 mg tablet active Lety Christy iron 325 mg (65 mg iron) tablet active Ro Barrett Toprol XL 100 mg tablet extended release 24 hr completed Take 1 tablet by mouth once a day - Lucy Chapman SOCIAL HISTORY Date Observation Value Provider smoking status Never smoker Carisa murray MD smoking status Never smoker Carisa murray MD social history E&M S moking History: Jennifer ellis has never smoked. Carisa Doe MD social history reviewed E&M revi ewed - no changes required Carisa Doe MD smoking status Never smoker Kaitlin Vieira social history E&M S moking History: Jennifer ellis has never smoked. Carisa Doe MD social history reviewed E&M revi ewed - no changes required Carisa Doe MD smoking status Never smoker Lety Harrison social history E&M S moking History: Jennifer ellis currently smokes every day. Carisa Doe MD social history reviewed E&M revi ewed - no changes required Carisa Doe MD smoking, year quit 2021 Kaitlin Rosalio cordova number of years as a smoker 13 a Kaitlin Vieira smoking history, tot al pack/day 1/2 ppd Kaitlin [place] cigarette use yes Kaitlin Dariel smoking status Current every day smoker S aayush [place] social history E&M S moking History: Jennifer ellis currently smokes every day. Carisa Doe MD social history reviewed E&M revi ewed - no changes required Carisa Doe MD smoking, year quit 2021 Ro Barrett number of years as a smoker 13 a Ro Barrett smoking history, tot al pack/day 1/2 ppd Ro Barrett cigarette use yes Ro Wu rson smoking status Current every day smoker R luz Barrett social history E&M S moking History: Jennifer ellis is a former smoker. Carisa Doe MD social history reviewed E&M revi ewed - no changes required Carisa Doe MD smoking, year quit 2021 Dorcas hanna number of years as a smoker 13 a Dorcas Campos smoking history, tot al pack/day 1/2 ppd Dorcas Ingridelder cigarette use yes Dorcas martinez smoking status Former smoker Dorcas nguyener number of grandchildren Carisa Feliz social history E&M S moking History: Jennifer ellis is a former smoker. Carisa Doe MD social history reviewed E&M revi ewed - no changes required Carisa Doe MD number of years as a smoker 13 a Dorcas Campos smoking history, tot al pack/day 1/2 ppd Dorcas Campos smoking, year quit 2021 Dorcas hanna cigarette use yes Dorcas martinez smoking status Former smoker Dorcas ngo INSURANCE PROVIDERS Payer name Policy type / Coverage type Nando red libertarian ID [facility] [id number] [facility] Medicaid 0 [id number] ADVANCE DIRECTIVES Name Date DISCUSSED - NO DECISION MADE TREATMENT PLAN Date Name Performer [id number],C, c heck echo and exercise stress get tele monitor echo CONCLUSIONS: 1 . Normal left ventricular systolic function. Normal left ventricular size. Normal left ventricular wall thickness. Normal left v entricular diastolic function. E/E': 6.3 Left ventricular ejection fraction is measured at 65 %. 2 . Normal right ventricular size. Normal right ventricular systolic function. 3 . No significant valvular abnormalities. s tress test Summary and Interpretation 1 . Normal exercise capacity 2 . Normal hemodynamic response to exercise 3 . No diagnostic ST or T changes 4 . No significant arrhythmias 5 . There is no evidence for exercise-induced myocardial ischemia Carisa Doe MD [id number],C, H er updated medication list for this problem includes: Symbicort 160-4.5 Mcg/actuation Hfa Aerosol Inhaler (Budesonide-formoterol) Albuterol Sulfate 90 Mcg/actuation Hfa Aerosol Inhaler (Albuterol sulfate) Pulmonary Functions Reviewed: O 2 sat: 98 (12/31/2022) Carisa Doe MD [id number],C, t louie monitor echo and thyroid labls April 09, 2022 N o new episodes C ONCLUSIONS: 1 . Normal left ventricular systolic function. Normal left ventricular size. Normal left ventricular wall thickness. Normal left v entricular diastolic function. E/E': 6.3 Left ventricular ejection fraction is measured at 65 %. 2 . Normal right ventricular size. Normal right ventricular systolic function. 3 . No significant valvular abnormalities. Carisa Doe MD [id number],chema Sanchezk tele monitor and thyroid labs January 08, 2022 T elemonitor from 10/2021 showed episode of sinus tachy at 144bpm. We will put her on Toprol XL 25mg. Repeat monitor later this summerApril 09, 2022 T elemonitor shows up PVC/PAC, she has noted improvement with Toprol XL 25mg. Will increase to 25 BID. Will change to 50mg once a day if tolerated. M ay 2022 I ncrease toprol xl to additonal 25 mg in the pm. Check BPs at home. November 24, 2022 N O SIGNIFICANT BENEFIT WITH INCREASED BB. ARRANGE FOR TELE. NOT TAKING CAFFEINATED PRODUCTS. December 31, 2022 w aby telemonitor ad had one episode of sinus tap at 170 and doing well on toprol xl 100 daily at [facility] with no changes palanned Carisa Doe MD [id number],chema Sanchez echo and exercise stress get tele monitor Carisa Doe MD [id number],C, O n albuterol and symbicort only using PRN Carisa Doe MD [id number],C, t louie monitor echo and thyroid labls April 09, 2022 N o new episodes C ONCLUSIONS: 1 . Normal left ventricular systolic function. Normal left ventricular size. Normal left ventricular wall thickness. Normal left v entricular diastolic function. E/E': 6.3 Left ventricular ejection fraction is measured at 65 %. 2 . Normal right ventricular size. Normal right ventricular systolic function. 3 . No significant valvular abnormalities. Carisa Doe MD [id number],Cchemak tele monitor and thyroid labs January 08, 2022 T elemonitor from 10/2021 showed episode of sinus tachy at 144bpm. We will put her on Toprol XL 25mg. Repeat monitor later this summerApril 09, 2022 T elemonitor shows up PVC/PAC, she has noted improvement with Toprol XL 25mg. Will increase to 25 BID. Will change to 50mg once a day if tolerated. M ay 2022 I ncrease toprol xl to additonal 25 mg in the pm. Check BPs at home. November 24, 2022 N O SIGNIFICANT BENEFIT WITH INCREASED BB. ARRANGE FOR TELE. NOT TAKING CAFFEINATED PRODUCTS. Carisa Doe MD [id number],Cchema heck tele monitor and thyroid labs January 08, 2022 T elemonitor from 10/2021 showed episode of sinus tachy at 144bpm. We will put her on Toprol XL 25mg. Repeat monitor later this summerApril 09, 2022 T elemonitor shows up PVC/PAC, she has noted improvement with Toprol XL 25mg. Will increase to 25 BID. Will change to 50mg once a day if tolerated. M ay 2022 I ncrease toprol xl to additonal 25 mg in the pm. Check BPs at home. Carisa Doe MD [id number],C, t louie monitor echo and thyroid labls April 09, 2022 N o new episodes C ONCLUSIONS: 1 . Normal left ventricular systolic function. Normal left ventricular size. Normal left ventricular wall thickness. Normal left v entricular diastolic function. E/E': 6.3 Left ventricular ejection fraction is measured at 65 %. 2 . Normal right ventricular size. Normal right ventricular systolic function. 3 . No significant valvular abnormalities. Carisa Doe MD [id number],S, t louie monitor echo and thyroid labls April 09, 2022 N o new episodes C ONCLUSIONS: 1 . Normal left ventricular systolic function. Normal left ventricular size. Normal left ventricular wall thickness. Normal left v entricular diastolic function. E/E': 6.3 Left ventricular ejection fraction is measured at 65 %. 2 . Normal right ventricular size. Normal right ventricular systolic function. 3 . No significant valvular abnormalities. Carisa Doe MD [id number],Cchema heck tele monitor and thyroid labs January 08, 2022 T elemonitor from 10/2021 showed episode of sinus tachy at 144bpm. We will put her on Toprol XL 25mg. Repeat monitor later this summerApril 09, 2022 T elemonitor shows up PVC/PAC, she has noted improvement with Toprol XL 25mg. Will increase to 25 BID. Will change to 50mg once a day if tolerated. Carisa Doe MD [id number],C, c heck tele monitor and thyroid labs January 08, 2022 T elemonitor from 10/2021 showed episode of sinus tachy at 144bpm. We will put her on Toprol XL 25mg. Repeat monitor later this summer Carisa Doe MD [id number],S,On albuterol and symbicort. Carisa Doe MD [id number],C,tele monitor echo and thyroid labls Carisa Doe MD [id number],C,c heck echo and exercise stress get tele monitor Carisa Doe MD [id number],S,check tele mo nitor and thyroid labs Carisa Doe MD Cardiology:This visi t has been a part of the consistent, comprehensive, and ongoing management of the chronic medical condition(s) listed above for the patient. check tele monitor and thyroid labs January 08, 2022 T elemonitor from 10/2021 showed episode of sinus tachy at 144bpm. We will put her on Toprol XL 25mg. Repeat monitor later this summerApril 09, 2022 T elemonitor shows up PVC/PAC, she has noted improvement with Toprol XL 25mg. Will increase to 25 BID. Will change to 50mg once a day if tolerated. November 19, 2022 I ncrease toprol xl to additonal 25 mg in the pm. Check BPs at home. November 24, 2022 N O SIGNIFICANT BENEFIT WITH INCREASED BB. ARRANGE FOR TELE. NOT TAKING CAFFEINATED PRODUCTS. December 31, 2022 w aby telemonitor ad had one episode of sinus tap at 170 and doing well on toprol xl 100 daily at [facility] with no changes palanned December 16, 2023 S inus tachy- SVT try adding dilt and reducing BB dose J catrina 2023 h olter showed sinus rhythm overall without significant arrythmias Carisa Doe MD Cardiology:This visi t has been a part of the consistent, comprehensive, and ongoing management of the chronic medical condition(s) listed above for the patient. tele monitor echo and thyroid labls April 09, 2022 N o new episodes C ONCLUSIONS: 1 . Normal left ventricular systolic function. Normal left ventricular size. Normal left ventricular wall thickness. Normal left v entricular diastolic function. E/E': 6.3 Left ventricular ejection fraction is measured at 65 %. 2 . Normal right ventricular size. Normal right ventricular systolic function. 3 . No significant valvular abnormalities. December 16, 2023 N o new episodes T his visit has been a part of the consistent, comprehensive, and ongoing management of the chronic medical condition(s) listed above for the patient. January 06, 2024 n o recurrence, holter did not show any significant arrythmias Carisa Doe MD Cardiology:This visi t has been a part of the consistent, comprehensive, and ongoing management of the chronic medical condition(s) listed above for the patient. recently went to ER again with episode of cp, reveiwed tele and there was no significant arrythmias, says she is compliant with meds, no plans to do cath due to risks, will arrange for CTA coronaries, if not approved will do treadmill stress nuclear c heck echo to rule out pericardial effusion CTA 03/30/24 C ONCLUSIONS: 1 . Left main artery is normal. 2 . Left anterior descending artery is normal. Diagonals are normal. 3 . Circumflex artery is normal. OM is normal. 4 . Right coronary artery is dominant vessel. Normal PDA and PL. Echo done no effusion 03/30/2024 C ONCLUSIONS: 1 . Normal left ventricular systolic function. Normal left ventricular size. Normal left ventricular wall thickness. Normal left v entricular diastolic function. E/E': 7.0. Left ventricular ejection fraction is measured at 70 %. 2 . Normal right ventricular size. Normal right ventricular systolic function. 3 . No significant valvular abnormalities. E lectronically signed by Carisa Doe MD on 03/30/2024 at 9:43 AM Carisa Doe MD Cardiology: m ay be having inflammatory issues due to lupus and may need to see RHEUMATOLOGY r ecently went to ER again with episoe of cp, reveiwed tele and there was no sigtnificant arrythmias, says she is compliant with meds, no plans to do cath due to risks, will arrange for CTA coronaries, if not approved will do treadmill stress nuclear She had CTA done to eval for CAD CONCLUSIONS: 1 . Left main artery is normal. 2 . Left anterior descending artery is normal. Diagonals are normal. 3 . Circumflex artery is normal. OM is normal. 4 . Right coronary artery is dominant vessel. Normal PDA and PL. Carisa Doe MD Cardiology:recently went to ER again with episode of cp, reveiwed tele and there was no significant arrythmias, says she is compliant with meds, no plans to do cath due to risks, will arrange for CTA coronaries, if not approved will do treadmill stress nuclear c heck echo to rule out pericardial effusion Carisa Doe MD Cardiology: t louie monitor echo and thyroid labls April 09, 2022 N o new episodes C ONCLUSIONS: 1 . Normal left ventricular systolic function. Normal left ventricular size. Normal left ventricular wall thickness. Normal left v entricular diastolic function. E/E': 6.3 Left ventricular ejection fraction is measured at 65 %. 2 . Normal right ventricular size. Normal right ventricular systolic function. 3 . No significant valvular abnormalities. December 16, 2023 N o new episodes T his visit has been a part of the consistent, comprehensive, and ongoing management of the chronic medical condition(s) listed above for the patient. January 06, 2024 n o recurrence, holter did not show any significant arrythmias Carisa Doe MD Cardiology: c heck tele monitor and thyroid labs January 08, 2022 T elemonitor from 10/2021 showed episode of sinus tachy at 144bpm. We will put her on Toprol XL 25mg. Repeat monitor later this summerApril 09, 2022 T elemonitor shows up PVC/PAC, she has noted improvement with Toprol XL 25mg. Will increase to 25 BID. Will change to 50mg once a day if tolerated. November 19, 2022 I ncrease toprol xl to additonal 25 mg in the pm. Check BPs at home. November 24, 2022 N O SIGNIFICANT BENEFIT WITH INCREASED BB. ARRANGE FOR TELE. NOT TAKING CAFFEINATED PRODUCTS. December 31, 2022 w aby telemonitor ad had one episode of sinus tap at 170 and doing well on toprol xl 100 daily at [facility] with no changes palanned December 16, 2023 S inus tachy- SVT try adding dilt and reducing BB dose January 06, 2024 h olter showed sinus rhythm overall without significant arrythmias Carisa Doe MD Cardiology:may be mark ving inflammatory issues due to lupus and may need to see RHEUMATOLOGY r ecently went to ER again with episoe of cp, reveiwed tele and there was no sigtnificant arrythmias, says she is compliant with meds, no plans to do cath due to risks, will arrange for CTA coronaries, if not approved will do treadmill stress nuclear Carisa Doe MD Cardiology:recently went to ER again with episode of cp, reveiwed tele and there was no significant arrythmias, says she is compliant with meds, no plans to do cath due to risks, will arrange for CTA coronaries, if not approved will do treadmill stress nuclear chema weiss echo to rule out pericardial effusion Carisa Doe MD Cardiology: H er updated medication list for this problem includes: Symbicort 160-4.5 Mcg/actuation Hfa Aerosol Inhaler (Budesonide-formoterol) Albuterol Sulfate 90 Mcg/actuation Hfa Aerosol Inhaler (Albuterol sulfate) Pulmonary Functions Reviewed: O 2 sat: 98 (12/31/2022) December 16, 2023 n o new asthma attacks Carisa Doe MD Cardiology: chema hernandezk echo and exercise stress get tele monitor echo CONCLUSIONS: 1 . Normal left ventricular systolic function. Normal left ventricular size. Normal left ventricular wall thickness. Normal left v entricular diastolic function. E/E': 6.3 Left ventricular ejection fraction is measured at 65 %. 2 . Normal right ventricular size. Normal right ventricular systolic function. 3 . No significant valvular abnormalities. s tress test Summary and Interpretation 1 . Normal exercise capacity 2 . Normal hemodynamic response to exercise 3 . No diagnostic ST or T changes 4 . No significant arrhythmias 5 . There is no evidence for exercise-induced myocardial ischemia Carisa Doe MD Cardiology: t louie monitor echo and thyroid labls April 09, 2022 N o new episodes C ONCLUSIONS: 1 . Normal left ventricular systolic function. Normal left ventricular size. Normal left ventricular wall thickness. Normal left v entricular diastolic function. E/E': 6.3 Left ventricular ejection fraction is measured at 65 %. 2 . Normal right ventricular size. Normal right ventricular systolic function. 3 . No significant valvular abnormalities. December 16, 2023 N o new episodes T his visit has been a part of the consistent, comprehensive, and ongoing management of the chronic medical condition(s) listed above for the patient. Carisa Doe MD Cardiology: chema weiss tele monitor and thyroid labs January 08, 2022 T elemonitor from 10/2021 showed episode of sinus tachy at 144bpm. We will put her on Toprol XL 25mg. Repeat monitor later this summerApril 09, 2022 T elemonitor shows up PVC/PAC, she has noted improvement with Toprol XL 25mg. Will increase to 25 BID. Will change to 50mg once a day if tolerated. November 19, 2022 I ncrease toprol xl to additonal 25 mg in the pm. Check BPs at home. November 24, 2022 N O SIGNIFICANT BENEFIT WITH INCREASED BB. ARRANGE FOR TELE. NOT TAKING CAFFEINATED PRODUCTS. December 31, 2022 w aby telemonitor ad had one episode of sinus tap at 170 and doing well on toprol xl 100 daily at [facility] with no changes palanned December 16, 2023 S inus tachy- SVT try adding dilt and reducing BB dose Carisa Doe MD Cardiology: chema weiss echo and exercise stress get tele monitor echo CONCLUSIONS: 1 . Normal left ventricular systolic function. Normal left ventricular size. Normal left ventricular wall thickness. Normal left v entricular diastolic function. E/E': 6.3 Left ventricular ejection fraction is measured at 65 %. 2 . Normal right ventricular size. Normal right ventricular systolic function. 3 . No significant valvular abnormalities. s tress test Summary and Interpretation 1 . Normal exercise capacity 2 . Normal hemodynamic response to exercise 3 . No diagnostic ST or T changes 4 . No significant arrhythmias 5 . There is no evidence for exercise-induced myocardial ischemia Carisa Doe MD Cardiology: H er updated medication list for this problem includes: Symbicort 160-4.5 Mcg/actuation Hfa Aerosol Inhaler (Budesonide-formoterol) Albuterol Sulfate 90 Mcg/actuation Hfa Aerosol Inhaler (Albuterol sulfate) Pulmonary Functions Reviewed: O 2 sat: 98 (12/31/2022) Carisa Doe MD Cardiology: t louie monitor echo and thyroid labls April 09, 2022 N o new episodes C ONCLUSIONS: 1 . Normal left ventricular systolic function. Normal left ventricular size. Normal left ventricular wall thickness. Normal left v entricular diastolic function. E/E': 6.3 Left ventricular ejection fraction is measured at 65 %. 2 . Normal right ventricular size. Normal right ventricular systolic function. 3 . No significant valvular abnormalities. Carisa Doe MD Cardiology: chema weiss tele monitor and thyroid labs January 08, 2022 T elemonitor from 10/2021 showed episode of sinus tachy at 144bpm. We will put her on Toprol XL 25mg. Repeat monitor later this summerApril 09, 2022 T elemonitor shows up PVC/PAC, she has noted improvement with Toprol XL 25mg. Will increase to 25 BID. Will change to 50mg once a day if tolerated. November 19, 2022 I ncrease toprol xl to additonal 25 mg in the pm. Check BPs at home. November 24, 2022 N O SIGNIFICANT BENEFIT WITH INCREASED BB. ARRANGE FOR TELE. NOT TAKING CAFFEINATED PRODUCTS. December 31, 2022 w aby telemonitor ad had one episode of sinus tap at 170 and doing well on toprol xl 100 daily at [facility] with no changes palanned Carisa Doe MD Cardiology: chema weiss echo and exercise stress get tele monitor Carisa Doe MD Cardiology: O n albuterol and symbicort only using PRN Carisa Doe MD Cardiology: t louie monitor echo and thyroid labls April 09, 2022 N o new episodes C ONCLUSIONS: 1 . Normal left ventricular systolic function. Normal left ventricular size. Normal left ventricular wall thickness. Normal left v entricular diastolic function. E/E': 6.3 Left ventricular ejection fraction is measured at 65 %. 2 . Normal right ventricular size. Normal right ventricular systolic function. 3 . No significant valvular abnormalities. Carisa Doe MD Cardiology: c heck tele monitor and thyroid labs January 08, 2022 T elemonitor from 10/2021 showed episode of sinus tachy at 144bpm. We will put her on Toprol XL 25mg. Repeat monitor later this summerApril 09, 2022 T elemonitor shows up PVC/PAC, she has noted improvement with Toprol XL 25mg. Will increase to 25 BID. Will change to 50mg once a day if tolerated. November 19, 2022 I ncrease toprol xl to additonal 25 mg in the pm. Check BPs at home. November 24, 2022 N O SIGNIFICANT BENEFIT WITH INCREASED BB. ARRANGE FOR TELE. NOT TAKING CAFFEINATED PRODUCTS. Carisa Doe MD Cardiology: c heck tele monitor and thyroid labs January 08, 2022 T elemonitor from 10/2021 showed episode of sinus tachy at 144bpm. We will put her on Toprol XL 25mg. Repeat monitor later this summerApril 09, 2022 T elemonitor shows up PVC/PAC, she has noted improvement with Toprol XL 25mg. Will increase to 25 BID. Will change to 50mg once a day if tolerated. November 19, 2022 I ncrease toprol xl to additonal 25 mg in the pm. Check BPs at home. Carisa Doe MD Cardiology: t louie monitor echo and thyroid labls April 09, 2022 N o new episodes C ONCLUSIONS: 1 . Normal left ventricular systolic function. Normal left ventricular size. Normal left ventricular wall thickness. Normal left v entricular diastolic function. E/E': 6.3 Left ventricular ejection fraction is measured at 65 %. 2 . Normal right ventricular size. Normal right ventricular systolic function. 3 . No significant valvular abnormalities. Carisa Doe MD Cardiology: t louie monitor echo and thyroid labls April 09, 2022 N o new episodes C ONCLUSIONS: 1 . Normal left ventricular systolic function. Normal left ventricular size. Normal left ventricular wall thickness. Normal left v entricular diastolic function. E/E': 6.3 Left ventricular ejection fraction is measured at 65 %. 2 . Normal right ventricular size. Normal right ventricular systolic function. 3 . No significant valvular abnormalities. Carisa Doe MD Cardiology: c heck tele monitor and thyroid labs January 08, 2022 T elemonitor from 10/2021 showed episode of sinus tachy at 144bpm. We will put her on Toprol XL 25mg. Repeat monitor later this summerApril 09, 2022 T elemonitor shows up PVC/PAC, she has noted improvement with Toprol XL 25mg. Will increase to 25 BID. Will change to 50mg once a day if tolerated. Carisa Doe MD Cardiology: chema hernandezk tele monitor and thyroid labs January 08, 2022 T elemonitor from 10/2021 showed episode of sinus tachy at 144bpm. We will put her on Toprol XL 25mg. Repeat monitor later this summer Carisa Doe MD Cardiology:On albuterol and symb icort. Carisa Doe MD Cardiology:tele monitor echo and thyroid labls Carisa Doe MD Cardiology:check ech o and exercise stress get tele monitor Carisa Doe MD Cardiology:check tele monitor an d thyroid labs Carisa Doe MD Date Name CT Angio Coronaries Stress Exercise Card iolite Complete Echo Monitor - Telemetry (Mobile Cardiac) Monitor - Telemetry (Mobile Cardiac) Holter Monitor 48 hr Monitor - Telemetry (Mobile Cardiac) CBC (INCLUDES DIFF/P LT) TSH, free T4, total T3 COMPREHENSIVE METABO LIC PANEL, W/EGFR Stress Routine Complete Echo RPM (remote patient monitoring) Monitor - Telemetry (Mobile Cardiac) 70499 MOD 30-39min HISTORY OF PROCEDURES Procedure Date Procedure Name Provider Procedure Notes S tatus Complex e/m visit add on Carisa Doe MD completed EKG Carisa Doe MD compl eted Complex e/m visit add on Carisa Doe MD completed EKG Carisa Doe MD compl eted Complex e/m visit add on Carisa Doe MD completed EKG Carisa Doe MD compl eted EKG Carisa Doe MD compl eted EKG Carisa Doe MD compl eted EKG Carisa Doe MD compl eted EKG Carisa Doe MD compl eted EKG Carisa Doe MD compl eted
--- OUTSIDE RECORDS SUMMARY | 2024-07-20 05:48 | XMS_ITS | Patient Health Summary ---
Author Organization [facility] Address [address] [place] [address] Care Team Providers Care Dry Roaster Name Role Phone Mervin Kevin MD Primary Care Provider [phone] Note from [facility],non-owned Affiliates and Associated Physician Practices is amultiple site organization consisting of ambulatory clinics and hospital sitesin [place], [place], [place] and [place]. This disclosure is being madepursuant to the Care Everywhere program and may not contain all information available regarding this patient. Last updated 18.[facility] Allergies * Nitrofurantoin(Anaphylaxis,Urticaria,Rash) -High Criticality Medications * Be aware that medications may not be up to date on this document. Alwaysverify current medications with the patient. * valACYclovir (VALTREX) 500 MG tablet(Started 12/29/2017) Take 1 tablet by mouth 2 times daily 11 refills remaining * albuterol HFA (PROAIR HFA) 108 (90 BASE) MCG/ACT inhaler(Started 12/29/2017) Inhale 2 puffs by mouth every 6 hours as needed 3 refills remaining * calcium-vitamin D (OS-KRISTINE 500 + D) 500-200 mg-unit tablet Take 1 (one) tablet by mouth once daily * albuterol (PROVENTIL;VENTOLIN) (2.5 MG/3ML) 0.083% nebulizer solution(Started 04/27/2018) Inhale 2.5 mg by mouth every 4 hours as needed for Shortness of Breath or Wheezing 5 refills remaining * loratadine (CLARITIN) 10 MG tablet(Started 06/14/2018) Take 1 tablet by mouth once daily 3 refills remaining * famotidine (PEPCID) 20 MG tablet Take 1 (one) tablet by mouth 2 times daily * predniSONE (DELTASONE) 10 MG tablet(Started 12/12/2020) 3 tabs BID x4 days, 2 tabs BID x3 days, 1 tab BID x3 days then stop * ERGOCALCIFEROL PO Take 1 capsule by mouth once a week * ferrous sulfate 325 (65 FE) MG tablet Take 1 (one) tablet by mouth once daily * fluticasone-salmeterol (Wixela Inhub) 250-50 MCG/ACT inhaler Inhale 1 (one) puff by mouth two times daily at 4am and 4pm * cyclobenzaprine (Flexeril) 10 MG tablet(Started 09/08/2022) Take 1 (one) tablet by mouth * dilTIAZem (Cardizem) 30 MG tablet Take 1 (one) tablet by mouth 2 times daily * fluconazole (Diflucan) 100 MG tablet(Started 01/29/2024) * ipratropium (Atrovent) 0.06 % nasal spray SPRAY 1 SPRAY INTO NOSTRILS 4 TIMES A DAY NEEDED. * ketorolac (Toradol) 10 MG tablet TAKE 1 TABLET BY MOUTH EVERY 6 HOURS X5 DAYS * Linzess 72 MCG capsule Take 1 (one) capsule by mouth once daily * metoprolol succinate XL 24hr (Toprol XL) 50 MG tablet Take 1 (one) tablet by mouth 2 times daily * sertraline (Zoloft) 50 MG tablet TAKE 1 TABLET BY MOUTH EVERY DAY AFTER A MEAL * traMADol (Ultram) 50 MG tablet Take 1 (one) tablet by mouth every 12 hours as needed * acetaminophen (Tylenol) 500 MG tablet(Started 02/10/2024) Take 1 (one) tablet by mouth every 6 hours as needed for Pain Maximum allowable Acetaminophen amount = 4 Grams (4000 mg) / 24 hours. 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 Bipolar disease during in third trimes ter 12/29/2017 Neuropathy 12/29/2017 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 Asthma affecting , antepartum 8 Anemia 12/29/2017 Resolved Problems Problem Noted Date Diagnosed Date Resolved Date Supervision of high risk pre gnancy in third trimester 06/18/2018 08/06/2019 Group B streptococcal infection in 8 08/06/2019 state, incidental 04/15/2018 0 08/11/2018 Supervision of high-risk pre gnancy, third trimester 04/14/2018 08/11/2018 abnormality affecting management of mother 02/14/2018 06/30/2018 Fetus with suspected cleft l ip and palate, antepartum, other fetus 02/09/2018 08/06/2019 Second trimester 12/29/2017 0 08/11/2018 Encounter for ultrasound to assess growth 08/06/2019 Polyhydramnios, antepartum complication 08/11/2018 Immunizations * INFLUENZA VACCINE, QUADR. (FLUZONE; FLULAVAL; FLUARIX; AFLURIA QUADRIVALENT; 6MO+), 0.5 ML (IIV4)(Given 04/27/2018) * MMR(Given 06/30/2018) * TDAP (7yrs+)(Given 04/06/2018) Social History Tobacco Use Types Packs/Day Years Used Date Smoking Tobacco: Former Cigarettes 0.5 14 0 06/28/2007 - 06/28/2021 Smokeless Tobacco: Never Tobacco Cessation:Counseling Given: Not Answered Alcohol Use Standard Drinks/Week Comments Not Currently 0 (1 standard drink = 0.6 oz pure alcohol) wine/mix drink on special occassions PHQ-2 Answer Date Recorded Patient Health Questionnaire-2 Score 0 02/22/2024 Sex and Gender Information Value Date Recorded Sex Assigned at Female 02/21/2024 3:10 PM CDT Gender Identity Female 02/21/2024 3:10 PM CDT Sexual Orientation Not on file Last Filed Vital Signs Vital Sign Reading Time Taken Comments Blood Pressure 106/71 02/10/2024 2:47 PM CDT Pulse 52 02/10/2024 2:47 PM CDT Temperature 36.3 ??C (97.3 ??F) 02/10/2024 2:14 PM CD T Respiratory Rate 16 02/10/2024 2:47 PM CDT Oxygen Saturation 100% 02/10/2024 2:47 PM CDT Inhaled Oxygen Concentration 21% 06/30/2018 8 :39 AM PIN 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 Weight 74.8 kg (165 lb) 02/22/2024 10:16 AM CDT Height 170.2 cm (5' 7 ) 02/22/2024 10:16 AM CDT Body Mass Index 25.84 02/22/2024 10:16 AM CDT Procedures * CARDIAC RHYTHM STRIP ORDER(Performed 02/14/2024) * GLUCOSE - POINT OF CARE(Performed 02/10/2024) * IN REPAIR OF DIGIT NERVE(Performed 02/10/2024) Performed for Diagnosis unknown * HCG URINE QUAL POCT NOTIFICATION(Performed 02/10/2024) Performed for Preop testing * GLUCOSE - POINT OF CARE(Performed 02/10/2024) * CBC W/O DIFFERENTIAL(Performed 02/10/2024) Performed for Preop testing * HCG URINE QUALITATIVE - POCT (IP) INTERFACED(Performed 02/10/2024) * XR HAND RIGHT 3VW OR MORE(Performed 02/01/2024) Performed for Pain of right hand * IN DRAIN/INJECT LARGE JOINT/BURSA(Performed 04/21/2021) Performed for Chronic pain of left knee * IN DRAIN/INJECT LARGE JOINT/BURSA(Performed 01/01/2021) Performed for Acute pain of left knee * MRI KNEE LEFT WO CONTRAST(Performed 12/21/2020) Performed for Acute pain of left knee * XR KNEE LEFT 3VW(Performed 12/12/2020) Performed for Acute pain of left knee * XR LUMBAR SPINE 2 OR 3VW(Performed 12/12/2020) Performed for Spinal stenosis, unspecified spinal region, Chronic low back pain, unspecified back pain laterality, unspecified whether sciatica present * SONOGRAM - COMPLETE(Performed 08/06/2019) Performed for Encounter for anatomic survey ([facility]) * GLUCOSE PROTEIN KETONE URINE - POINT OF CAR(Performed 08/06/2019) Performed for 23 weeks gestation of ([facility]) * PAP LB RFLX HPV ASCU(Performed 11/24/2018) Performed for Well woman exam * HEPATITIS B SURFACE ANTIGEN W RFLX CONFIRMATION(Performed 11/24/2018) Performed for Well woman exam * HEPATITIS C ANTIBODY(Performed 11/24/2018) Performed for Well woman exam * SYPHILIS ANTIBODY CASCADING REFLEX(Performed 11/24/2018) Performed for Well woman exam * HIV-1 HIV-2 ANTIBODY + HIV P24 AG PANEL(Performed 11/24/2018) Performed for Well woman exam * TRICHOMONAS RAPID TEST(Performed 11/24/2018) Performed for Well woman exam * CHLAMYDIA + GC AMPLIFIED PROBE(Performed 11/24/2018) Performed for Well woman exam * PATHOLOGY TISSUE(Performed 10/31/2018) Performed for Gastroesophageal reflux disease, esophagitis presence not specified * ESOPHAGOGASTRODUODENOSCOPY (EGD) DIAGNOSTIC(Performed 10/31/2018) Performed for Gastroesophageal reflux disease, esophagitis presence not specified * EGD(Performed 10/31/2018) * IMAGING/RADIOLOGY/XRAY RESULTS ORDER(Performed 07/03/2018) * CBC W AUTO DIFFERENTIAL(Performed 06/29/2018) * CULTURE MRSA(Performed 06/29/2018) * CULTURE MRSA(Performed 06/29/2018) * PATHOLOGY TISSUE EXAM (STL)(Performed 06/29/2018) Performed for Supervision of high risk in third trimester ([facility]) * CBC W AUTO DIFFERENTIAL(Performed 06/28/2018) * FIBRINOGEN ACTIVITY(Performed 06/28/2018) * PT PTT PANEL(Performed 06/28/2018) * DILATION AND CURETTAGE (D&C) /EVACUATION POST (Performed 06/28/2018) Performed for Retained portions of placenta ([facility]) * BLOOD GASES CORD QUITA (ISTAT)(Performed 06/28/2018) * BLOOD GASES CORD ART (ISTAT)(Performed 06/28/2018) * FENTANYL URINE(Performed 06/28/2018) * URINE DRUG SCREEN IMMUNOASSAY(Performed 06/28/2018) * TYPE + SCREEN PANEL(Performed 06/28/2018) * CBC W AUTO DIFFERENTIAL(Performed 06/28/2018) * IMAGING/RADIOLOGY/XRAY RESULTS ORDER(Performed 06/22/2018) * IMAGING/RADIOLOGY/XRAY RESULTS ORDER(Performed 06/22/2018) * GLUCOSE PROTEIN KETONE URINE - POINT OF CAR(Performed 06/22/2018) Performed for Supervision of high-risk , third trimester ([facility]) * SONOGRAM - LIMITED(Performed 06/22/2018) Performed for Polyhydramnios, antepartum, single or unspecified fetus (HCC) * NONSTRESS TEST(Performed 06/18/2018) * GLUCOSE PROTEIN KETONE URINE - POINT OF CAR(Performed 06/18/2018) * SONOGRAM - LIMITED(Performed 06/14/2018) Performed for Polyhydramnios, antepartum, single or unspecified fetus (HCC), Encounter for ultrasound to assess growth ([facility]) * GLUCOSE PROTEIN KETONE URINE - POINT OF CAR(Performed 06/14/2018) Performed for Supervision of high-risk , third trimester ([facility]) * CULTURE STREP B(Performed 06/07/2018) Performed for , unspecified gestational age ([facility]) * GLUCOSE PROTEIN KETONE URINE - POINT OF CAR(Performed 06/07/2018) Performed for , unspecified gestational age ([facility]) * SONOGRAM - COMPLETE(Performed 06/07/2018) Performed for Second trimester ([facility]) * GLUCOSE PROTEIN KETONE URINE - POINT OF CAR(Performed 05/24/2018) Performed for , unspecified gestational age ([facility]) * SONOGRAM - COMPLETE(Performed 05/10/2018) Performed for abnormality affecting management of mother, single or unspecified fetus ([facility]) * GLUCOSE PROTEIN KETONE URINE - POINT OF CAR(Performed 05/10/2018) Performed for Fetus with suspected cleft lip and palate, antepartum, other fetus ([facility]) * GLUCOSE PROTEIN KETONE URINE - POINT OF CAR(Performed 04/27/2018) Performed for Second trimester ([facility]) * IMAGING/RADIOLOGY/XRAY RESULTS ORDER(Performed 04/18/2018) * URINE MICROSCOPIC ONLY REFLEX TO CULTURE(Performed 04/15/2018) Performed for state, incidental (HCC) * URINALYSIS REFLEX MICROSCOPIC REFLEX CULTURE(Performed 04/15/2018) Performed for state, incidental (HCC) * CULTURE URINE(Performed 04/15/2018) Performed for state, incidental (HCC) * CHLAMYDIA + GC AMPLIFIED PROBE(Performed 04/15/2018) Performed for state, incidental ([facility]) * GLUCOSE - POINT OF CARE(Performed 04/15/2018) * NONSTRESS TEST(Performed 04/15/2018) * URINE DRUG SCREEN IMMUNOASSAY(Performed 04/14/2018) Performed for Marijuana user * URINE MICROSCOPIC ONLY REFLEX TO CULTURE(Performed 04/14/2018) Performed for Cramping affecting , antepartum ([facility]) * URINALYSIS REFLEX MICROSCOPIC REFLEX CULTURE(Performed 04/14/2018) Performed for Cramping affecting , antepartum ([facility]) * CULTURE URINE(Performed 04/14/2018) Performed for Cramping affecting , antepartum ([facility]) * GTT 3 HR (100G) GESTATIONAL DIAGNOSTIC(Performed 04/06/2018) Performed for Glucose intolerance of ([facility]) * RPR(Performed 04/06/2018) Performed for Supervision of high-risk of young multigravida ([facility]) * CBC W/O DIFFERENTIAL(Performed 04/06/2018) Performed for Supervision of high-risk of young multigravida ([facility]) * HIV-1 HIV-2 ANTIBODY + HIV P24 AG PANEL(Performed 04/06/2018) Performed for Supervision of high-risk of young multigravida ([facility]) * HEMOGLOBIN A1C(Performed 04/06/2018) Performed for Glucose intolerance of ([facility]) * GLUCOSE PROTEIN KETONE URINE - POINT OF CAR(Performed 04/06/2018) Performed for , unspecified gestational age ([facility]) * GLUCOSE - POINT OF CARE(Performed 04/06/2018) * ECHO CONSULT - (Performed 04/03/2018) Performed for abnormality affecting management of mother, single or unspecified fetus ([facility]) * SONOGRAM - COMPLETE(Performed 04/03/2018) Performed for abnormality affecting management of mother, single or unspecified fetus ([facility]) * GLUCOSE PROTEIN KETONE URINE - POINT OF CAR(Performed 03/09/2018) Performed for Recurrent loss with current ([facility]) * SONOGRAM - COMPLETE(Performed 03/06/2018) Performed for abnormality affecting management of mother, single or unspecified fetus ([facility]) * URINE DRUG SCREEN IMMUNOASSAY(Performed 02/09/2018) Performed for , unspecified gestational age ([facility]) * GLUCOSE PROTEIN KETONE URINE - POINT OF CAR(Performed 02/09/2018) Performed for , unspecified gestational age ([facility]) * SONOGRAM - COMPLETE(Performed 02/09/2018) Performed for Encounter for anatomic survey ([facility]) * GTT 3 HR (100G) GESTATIONAL DIAGNOSTIC(Performed 01/12/2018) Performed for , unspecified gestational age ([facility]) * GLUCOSE - POINT OF CARE(Performed 01/12/2018) * GLUCOSE PROTEIN KETONE URINE - POINT OF CAR(Performed 01/12/2018) Performed for , unspecified gestational age ([facility]) * BLOOD TYPE ABO+ RH PANEL(Performed 12/29/2017) * GLUCOSE CHALLENGE(Performed 12/29/2017) Performed for Supervision of high-risk of young multigravida ([facility]) * BETA-2 GLYCOPROTEIN 1 ANTIBODY IGG/IGM PANEL(Performed 12/29/2017) Performed for Recurrent loss, antepartum condition or complication ([facility]) * LUPUS ANTICOAGULANT PANEL W RFLX(Performed 12/29/2017) Performed for Recurrent loss, antepartum condition or complication ([facility]) * CARDIOLIPIN ANTIBODY IGG/IGM PANEL(Performed 12/29/2017) Performed for Recurrent loss, antepartum condition or complication ([facility]) * GLUCOSE PROTEIN KETONE URINE - POINT OF CAR(Performed 12/29/2017) Performed for Supervision of high-risk of young multigravida ([facility]) * SONOGRAM - COMPLETE(Performed 12/29/2017) Performed for Encounter for anatomic survey ([facility]) * ANEUPLOIDY SCREENING(Performed 12/29/2017) * DERMATOPATHOLOGY(Performed 10/22/2016) * PATHOLOGY/GENETICS HISTORICAL-ONBASE(Performed 10/22/2016) * XR PANOREX(Performed 09/20/2016) * HCG URINE QUALITATIVE - POCT (IP) [facility](Performed 12/13/2014) * HCG URINE QUALITATIVE - POCT (IP) [facility](Performed 12/13/2014) Results * CARDIAC RHYTHM STRIP ORDER (02/14/2024 6:14 PM CDT) Narrative 02/14/2024 6:14 PM CDT Ordered by an unspecified provider. Scanned Document CARDIAC SERVICES ORD ERABLES * GLUCOSE - POINT OF CARE (02/10/2024 1:15 PM CDT) Only the most recent of5 resultswithin the time period is included. Glucose WB/POC 81 70 - 106 mg/dL 02/13/2024 9:48 AM CDT [facility] Specimen Type Cap Fingerstick 2023 9:48 AM CDT [facility] Blood BLOOD SPECIMEN / Unknown 02/10/2024 1:15 PM CDT 02/13/2024 9:48 AM CDT Rufino Miller MD LAB - POINT OF CARE ORDERABLES Performing Organization Address City/[facility]/ZIP Co de Phone Number [facility] [address] [place] [address] * HCG URINE QUAL POCT NOTIFICATION (02/10/2024 10:32 AM CDT) Comment Notification Label Only - See Separate Report 02/10/2024 10:32 AM CDT [facility] Urine URINE / Unknown 9:31 AM CDT Mike Gage MD LAB - URINALYSIS ORD ERABLES [facility] [address] [place] [address] * CBC W/O DIFFERENTIAL (02/10/2024 9:50 AM CDT) Only the most recent of2 resultswithin the time period is included. WBC 8.7 4.0 - 10.7 x10E9/L 02/10/2024 10:22 AM CDT [facility] RBC Count 4.49 3.90 - 5.20 x10E12/L 02/10/2024 10:22 AM CDT [facility] Hemoglobin 13.1 11.9 - 15.8 g/dL 02/10/2024 10:22 AM CDT [facility] Hematocrit 39.4 34.8 - 46.1 % 02/10/2024 10:22 AM CDT [facility] MCV 87.8 80.0 - 98.0 fL 02/10/2024 10:22 AM CDT [facility] MCH 29.2 26.7 - 33.6 pg 02/10/2024 10:22 AM CDT [facility] MCHC 33.2 31.7 - 36.3 g/dL 02/10/2024 10:22 AM CDT [facility] RDW-CV 12.6 11.3 - 14.8 % 02/10/2024 10:22 AM CDT [facility] Platelet Count 293 150 - 420 x10E9/L 02/10/2024 10:22 AM CDT [facility] MPV 10.7 7.8 - 11.4 fL 02/10/2024 10:22 AM CDT [facility] Blood BLOOD SPECIMEN / Unknown Venipuncture / Unknown 02/10/2024 9:50 AM CDT 02/10/2024 9:58 AM CDT Mike Gage MD LAB - HEMATOLOGY ORD ERABLES [facility] [address] [address] [id number] * HCG URINE QUALITATIVE - POCT (IP) INTERFACED (02/10/2024 9:44 AM CDT) HCG Qual Urine Negative Negative 02/10/2024 9:50 AM CDT [facility] Urine URINE / Unknown 02/10/2024 9 :44 AM CDT 02/10/2024 9:50 AM CDT Rufino Miller MD LAB - POINT OF CARE ORDERABLES Performing Organization Address City/[facility]/ZIP Co de Phone Number [facility] [address] [place] [id number] * XR Hand Right 3Vw or More (02/01/2024 11:09 AM CDT) Anatomical Region Laterality Modality Wrist / Hand Computed Radiogr aphy 02/01/2024 11:1 8 AM CDT Impressions 02/01/2024 11:27 AM CDT IMPRESSION: No acute osseous abnormality. Edited by Tesha Shah on 02/01/2024 11:25 AM > Interpreting Provider: Anirudh Zabala MD on 02/01/2024 11:27 AM Narrative 02/01/2024 11:27 AM CDT PROCEDURE: ??XR HAND RIGHT 3VW OR MORE DATE/TIME OF EXAM: ??02/01/2024 11:10 AM CLINICAL INFORMATION: None relevant/not provided if blank. Indication: M79.641: Pain in right hand. Additional History: COMPARISON: None. FINDINGS: Four views of the right hand show no displaced fracture, subluxation or dislocation. Procedure Note Anirudh Zabala MD - 02/01/2024 PROCEDURE: XR HAND RIGHT 3VW OR MORE DATE/TIME OF EXAM: 02/01/2024 11:10 AM CLINICAL INFORMATION: None relevant/not provided if blank. Indication: M79.641: Pain in right hand. Additional History: COMPARISON: None. FINDINGS: Four views of the right hand show no displaced fracture, subluxation or dislocation. IMPRESSION: No acute osseous abnormality. Edited by Tesha Shah on 02/01/2024 11:25 AM > Interpreting Provider: Anirudh Zabala MD on 02/01/2024 11:27 AM Rufino Miller MD DIAGNOSTIC IMAGING O RDERABLES * IN DRAIN/INJECT LARGE JOINT/BURSA (04/21/2021 2:00 PM CDT) Narrative Jenniffer Abbott PA - 04/21/2021 2:00 PM CDT Jenniffer Abbott PA ? 04/21/2021 ??3:56 PM Left Knee Injection: Patient placed in seated position with knee at 90 degrees. Skin cleansed with betadine and isopropyl alcohcol. Ethyl Chloride used to anesthetize skin. Joint accessed via anterolateral portal with 21g needle. Syringe aspirated with no bloody show. A combination of 3cc of 1% lidocaine and 1cc of 40mg/mL Kenalog infused into the joint. Needle removed and bandage placed. Patient tolerated the procedure well. Jenniffer KLINE PROCEDURE/MINOR SURG ICAL ORDERABLES * IN DRAIN/INJECT LARGE JOINT/BURSA (01/01/2021 9:28 AM CDT) Narrative Jenniffer Abbott PA - 01/01/2021 9:28 AM CDT Jenniffer Abbott PA ? 01/01/2021 ??9:28 AM Left Knee Injection: Patient placed in seated position with knee at 90 degrees. Skin cleansed with betadine and isopropyl alcohcol. Ethyl Chloride used to anesthetize skin. Joint accessed via anterolateral portal with 21g needle. Syringe aspirated with no bloody show. A combination of 3cc of 1% lidocaine and 1cc of 40mg/mL Kenalog infused into the joint. Needle removed and bandage placed. Patient tolerated the procedure well. Jenniffer KLINE PROCEDURE/MINOR SURG ICAL ORDERABLES * MRI KNEE LEFT WO CONTRAST (12/21/2020 1:08 PM CDT) Anatomical Region Laterality Modality Lower Extremity Magnetic Resonan ce 12/22/2020 9:44 AM CDT Impressions 12/22/2020 11:16 AM CDT Impression: 1.Normal. Report dictated by Andrzej Graham MD (resident in diagnostic radiology). I, Dr. JOHANN MCDANIELS MD have personally reviewed and interpreted this examination/study. This report was electronically signed by JOHANN MCDANIELS MD ??on 12/22/2020 11:16 AM . Narrative 12/22/2020 11:16 AM CDT MRI Left Knee Without Contrast History: 30-year-old female with history of left knee pain following fall, concern for ACL tear Technique: ??MRI was performed using multiple pulse sequences in multiple planes, without intravenous contrast. Comparison: ??Left knee radiographs 12/12/2020 Findings: The anterior and posterior cruciate ligaments are normal. The medial collateral ligament is intact. The biceps femoris tendon, fibular collateral ligament, and iliotibial band are intact. ??The popliteus muscle and tendon are intact. In the medial femorotibial compartment, the articular cartilage is normal in thickness without defect. ??There is no medial meniscal tear. In the lateral femorotibial compartment, the articular cartilage is normal in thickness without defect. ??There is no lateral meniscal tear. Transverse intrameniscal ligament is noted. In the patellofemoral compartment, the articular cartilage is normal in thickness without defect. ??The patella is normally positioned, and the patella and femoral trochlea are normal in morphology. ??The medial and lateral patellar retinacula are intact. ??The distal quadriceps and patellar tendons are normal. ??There is a small amount of fluid in the deep infrapatellar bursa. There is a trace knee effusion. ??Marrow signal intensity is normal. Muscle bulk is normal. ??The subcutaneous tissues are normal. Procedure Note Johann Mcdaniels MD - 12/22/2020 MRI Left Knee Without Contrast History: 30-year-old female with history of left knee pain followingfall, concern for ACL tear Technique: MRI was performed using multiple pulse sequences in multiple planes, without intravenous contrast. Comparison: Left knee radiographs 12/12/2020 Findings: The anterior and posterior cruciate ligaments are normal. The medial collateral ligament is intact. The biceps femoris tendon, fibular collateral ligament, and iliotibial band are intact. The popliteus muscle and tendon are intact. In the medial femorotibial compartment, the articular cartilage isnormal in thickness without defect. There is no medial meniscal tear. In the lateral femorotibial compartment, the articular cartilage isnormal in thickness without defect. There is no lateral meniscal tear. Transverse intrameniscal ligament is noted. In the patellofemoral compartment, the articular cartilage is normal in thickness without defect. The patella is normally positioned, and the patella and femoral trochlea are normal in morphology. The medial and lateral patellar retinacula are intact. The distal quadriceps and patellar tendons are normal. There is a small amount of fluid in thedeep infrapatellar bursa. There is a trace knee effusion. Marrow signal intensity is normal. Muscle bulk is normal. The subcutaneous tissues are normal. Impression: 1.Normal. Report dictated by Andrzej Graham MD (resident in diagnostic radiology). I, Dr. JOHANN MCDANIELS MD have personally reviewed and interpreted this examination/study. This report was electronically signed by JOHANN MCDANIELS MD on12/22/2020 11:16 AM . Jenniffer KLINE MR ORDERABLES * XR KNEE LEFT 3VW (12/12/2020 10:54 AM CDT) Anatomical Region Laterality Modality Lower Extremity Radiographic Ирина ging 12/12/2020 11:0 3 AM CDT Impressions 12/12/2020 11:21 AM CDT IMPRESSION: No osseous abnormality identified. Dictated by Una Jimenez MD (resident in diagnostic radiology). Dr. ERLIN Rice have personally reviewed and interpreted this examination/study. This report was electronically signed by ERLIN AHN ??on 12/12/2020 11:21 AM . Narrative 12/12/2020 11:21 AM CDT EXAMINATION: XR KNEE LEFT 3VW HISTORY: M25.562: Acute pain of left knee COMPARISON: No prior study is available for comparison. FINDINGS: The osseous structures are intact and well aligned without acute fracture or dislocation. The knee joint space is preserved. No joint effusion is seen. Bone density and texture are normal. Procedure Note Erlin Ahn MD - 12/12/2020 EXAMINATION: XR KNEE LEFT 3VW HISTORY: M25.562: Acute pain of left knee COMPARISON: No prior study is available for comparison. FINDINGS: The osseous structures are intact and well aligned without acutefracture or dislocation. The knee joint space is preserved. No joint effusion is seen. Bone density and texture are normal. IMPRESSION: No osseous abnormality identified. Dictated by Una Jimenez MD (resident in diagnostic radiology). Dr. ERLIN Rice have personally reviewed and interpreted this examination/study. This report was electronically signed by ERLIN AHN on 12/12/2020 11:21 AM . Jenniffer KLINE DIAGNOSTIC IMAGING O RDERABLES * XR LUMBAR SPINE 2 OR 3VW (12/12/2020 10:36 AM CDT) Anatomical Region Laterality Modality Spine Radiographic Ирина ging 12/12/2020 11:0 2 AM CDT Impressions 12/12/2020 11:03 AM CDT Findings/Impression: No comparisons are available. Alignment of the lumbar spine is normal. Vertebral body heights are normal without compression fracture. Intervertebral disc spaces are normal. This report was electronically signed by ERLIN AHN ??on 12/12/2020 11:03 AM . Narrative 12/12/2020 11:03 AM CDT Examination: XR LUMBAR SPINE 2 OR 3VW History: M48.00: Spinal stenosis, unspecified spinal region M54.5: Chronic low back pain, unspecified back pain laterality, unspecified whether sciatica present G89.29: Chronic low back pain, unspecified back pain laterality, unspecified whether sciatica present Procedure Note Erlin Ahn MD - 12/12/2020 Examination: XR LUMBAR SPINE 2 OR 3VW History: M48.00: Spinal stenosis, unspecified spinal region M54.5: Chronic low back pain, unspecified back pain laterality, unspecified whether sciatica present G89.29: Chronic low back pain, unspecified back pain laterality, unspecified whether sciatica present Findings/Impression: No comparisons are available. Alignment of the lumbar spine is normal. Vertebral body heights arenormal without compression fracture. Intervertebral disc spaces are normal. This report was electronically signed by ERLIN AHN on 12/12/2020 11:03 AM . Jenniffer KLINE DIAGNOSTIC IMAGING O RDERABLES * SONOGRAM - COMPLETE (08/06/2019 9:27 AM PIN WORKER) Only the most recent of7 resultswithin the time period is included. Anatomical Region Laterality Modality Other 08/06/2019 9:27 AM PIN WORKER Narrative 08/06/2019 10:58 AM PIN WORKER ? [facility] ? [facility] ?PHONE: ??FAX: Pat. Name: ?DANNA SANCHEZ No: ?[id number] Study Date: ?? 08/06/2019 ??9:27am , Age: ? 1990, 28 Pregnancies: ?? 7, Para 4, Ab 2 Height: ? 67 in Weight: ? 150 lb LMP: ?Unknown GA by US: ? 23w1d ?? TRIP: 12/02/2019 GA Selected: ??23w2d (From Known E) TRIP: ?12/01/2019 Referring MD: Erasmo Wood MD Doll Wigs Hackler: ??Breanna Mcclain [facility] CPT4: ? 04985,52597 BMI: ?23.49 Hist/Ind: ? 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 GROWTH EVALUATION Measurement ??GA ? Range ? Srce %for GA Ratios ----- ---- ------- BPD ??5.6 cm 23w1d (40r1y-16y2m) Hadl BPD 36% FL/BPD 0.73 (0.71 - 0.87) HC ??21.1 cm 23w1d (46a4e-54l9d) Hadl HC ??31% FL/AC ??0.20 (0.20 - 0.24) AC ??20.0 cm 24w4d (37x2h-63x3p) Hadl AC ??80% HC/AC ??1.06 (1.03 - 1.22) FL ?? 4.1 cm 23w1d (69p8o-96j9t) Hadl FL ??34% CI ? 0.75 (0.70 - 0.86) HL ?? 3.8 cm 23w1d (85n5s-60e8t) Kamlesh HL ??48% Cere 2.4 cm 22w3d (30x2y-99q1q) Hill Cere27% GA for sonogram 23w1d (57q7u-94m2a) ?? Weight Estimate: based on (BPD,HC,AC,FL) Hadlock ?Weight: 637 gm (544-730gm) Hadloc ? : 1lbs, 6oz ? Normal: 597 gm (448-747gm) Hadloc ? Wt% ? 70% for 23w2d Cervix: ??Length: 3.5 cm ??Approach: transvaginal ??Funneling: not present Heart Rate: 152 bpm Amniotic Fluid Index: 03.8cm (Deepest Pocket) EVAL, PLACENTA Presentation: breech Umbilical Cord: 3 Vessels Placenta: posterior Heart Rate: 152 bpm Amniotic Fluid Volume: normal MATERNAL ANATOMY Ovaries LxHxW (cm) Right 3.1 x 1.2 x 2.3 Vol: 4.5cc Desc: Appears normal Left 3.2 x 2.1 x 2.0 Vol: 7.3cc Desc: Appears normal Anatomy!Normal!Abnormal!Suboptimal!Prev. Seen!Comments Cranium ?! ?? x ??! ?! ?! ?! Mdl (CSP/Thal! ?? x ??! ?! ?! ?! Ventricles ?? ! ?? x ??! ?! ?! ?! Choroid Plexu! ?? x ??! ?! ?! ?! Cerebellum ?? ! ?? x ??! ?! ?! ?! Cisterna M. ??! ?? x ??! ?! ?! ?! Nuchal Fold ??! ?? x ??! ?! ?! ?! Profile ?! ?? x ??! ?! ?! ?! Nasal Bone ?? ! ?? x ??! ?! ?! ?! Lip ?! ?? x ??! ?! ?! ?! Spine ?! ?! ?! ? x ?! ?! Lungs ?! ?? x ??! ?! ?! ?! 4 Chamber Hea! ?? x ??! ?! ?! ?! LVOT ? ! ?? x ??! ?! ?! ?! RVOT ? ! ?? x ??! ?! ?! ?! 3 Vessel View! ?? x ??! ?! ?! ?! Cross-over ?? ! ?? x ??! ?! ?! ?! Ductal Arch ??! ?? x ??! ?! ?! ?! Aortic Arch ??! ?? x ??! ?! ?! ?! Caval View ?? ! ?? x ??! ?! ?! ?! Situs ?! ?? x ??! ?! ?! ?! Diaphragm ?! ?? x ??! ?! ?! ?! Stomach ?! ?? x ??! ?! ?! ?! Bowel ?! ?? x ??! ?! ?! ?! Kidneys ?! ?? x ??! ?! ?! ?! Bladder ?! ?? x ??! ?! ?! ?! 3 Vessel Cord! ?? x ??! ?! ?! ?! Cord In! ?? x ??! ?! ?! ?! Upper Extremi! ?? x ??! ?! ?! ?! Hands ?! ?? x ??! ?! ?! ?! Lower Extreme! ?? x ??! ?! ?! ?! Feet ? ! ?? x ??! ?! ?! ?! External Annalise! ?! ?! ?! ?!Male Placental Cor! ?? x ??! ?! ?! ?! CLINICAL SUMMARY Study Number: 1 ?? A single fetus is identified in breech presentation. ??The measurements today are consistent with appropriate size for the TRIP provided. ??The TRIP selected is based on a prior ultrasound. ?? The amniotic fluid volume is normal. ??The placenta is posterior. ??No major malformations are seen within the limitations of ultrasound examination. ?? IMPRESSION: Single, live, IUP at 23w2d. Appropriate size. ?? Normal amniotic fluid volume. ?? Anatomy survey is incomplete, no major malformations detected today. ?? RECOMMEND: Follow up ultrasound in 4 weeks to complete the anatomy survey and to assess growth. ?? Thank you for allowing us the opportunity to care for your patient. Fabi Mederos MD <Electronic Signature> ??08/06/2019 10:57am Erasmo Wood MD [facility] ORDERABLES * GLUCOSE PROTEIN KETONE URINE - POINT OF CARE (08/06/2019 8:57 AM PIN WORKER) Only the most recent of13 resultswithin the time period is included. Glucose UA neg Negative [facility] Protein UA neg Negative [facility] Ketone UA neg Negative [facility] QC Verified Yes Yes [facility] POC T TESTING Urine URINE / Unknown 08/06/2019 8 :57 AM PIN WORKER Marialuisa Faustin DO LAB - POINT OF CAR E ORDERABLES [facility] [address] [phone] * SYPHILIS ANTIBODY CASCADING REFLEX (11/24/2018 2:32 PM CDT) Treponema pallidum Antibody Non Reactive Non Reactive 11/24/2018 4:08 PM CDT [facility] Comment: No Laboratory evidence of syphilis infection. ?? Note: ??Circulating antibodies may be low or undetectable in early infection. ??If recent exposure is suspected, re-draw sample in 2-4 weeks and repeat testing. Blood BLOOD SPECIMEN / Unknown Venipuncture / Unknown 11/24/2018 2:32 PM CDT 11/24/2018 2:36 PM CDT Alondra Saxena DO LAB - SEROLOGY ORDERABLES Performing Organization Address [facility] Co de Phone Number [facility] [address] [place], [place] [phone] * HIV-1 HIV-2 ANTIBODY + HIV P24 AG PANEL (11/24/2018 2:32 PM CDT) Only the most recent of2 resultswithin the time period is included. HIV1/2 Ab + P24 Ag Non Reactive Non Reactive 11/24/2018 3:32 PM CDT [facility] Blood BLOOD SPECIMEN / Unknown Venipuncture / Unknown 11/24/2018 2:32 PM CDT 11/24/2018 2:35 PM CDT Narrative [facility] - 11/24/2018 3:32 PM CDT No Laboratory evidence of HIV infection. Alondra Saxena DO LAB - CHEMISTRY ORDERABLES Performing Organization Address [facility] Co de Phone Number [facility] [address] [place], [place] [phone] * TRICHOMONAS RAPID TEST (11/24/2018 2:32 PM CDT) Trichomonas Rapid Test Negative Negative 11/24/2018 3:05 PM CDT [facility] Microbiology VAGINAL SWAB / Unknown Collection / Unknown 11/24/2018 2:32 PM CDT 11/24/2018 2:35 PM CDT Alondra Saxena DO LAB - MICROBIOL OGY ORDERABLES Performing Organization Address [facility] Co de Phone Number [facility] [address] [place], [place] [phone] * PAP LB RFLX HPV ASCU (11/24/2018 2:32 PM CDT) Diagnosis Comment 11/29/2018 11:13 AM CDT [facility] ([facility]) Comment:NEGATIVE FOR INTRAEP ITHELIAL LESION OR MALIGNANCY. Specimen Adequacy Comment 019 11:13 AM CDT [facility] ([facility]) Comment: Satisfactory for evaluation. ??Endocervical and/or squamous metaplastic cells (endocervical component) are present. Performed by Comment 11/29/2018 11:13 AM CDT [facility] ([facility]) Comment:Aamir Miller chnologist (ASCP) Comment . 11/29/2018 11:13 AM CDT [facility] ([facility]) Note Comment 11/29/2018 11:13 AM CDT [facility] ([facility]) Comment: The Pap smear is a screening test designed to aid in the detection of premalignant and malignant conditions of the uterine cervix. ??It is not a diagnostic procedure and should not be used as the sole means of detecting cervical cancer. ??Both false-positive and false-negative reports do occur. Note Comment 11/29/2018 11:13 AM CDT [facility] ([facility]) Comment: The HPV DNA reflex criteria were not met with this specimen result therefore, no HPV testing was performed. Pathology/Cytolo gy ENTIRE ENDOCERVIX / Unknown Collection / Unknown 11/24/2018 2:32 PM CDT 11/25/2018 7:38 AM CDT Narrative [facility] ([facility]) - 11/29/2018 11:13 AM CDT Performed at: ??[address] ??[id number] Professor Of Musicology: Fe Cruz MD, Phone: ??[phone] Specimen Comment: Source.............Cervix;Endocervix Specimen Comment: No. of containers..01 ThinPrep Vial Alondra Saxena DO LAB - PATHOLOGY /CYTOLOGY ORDERABLES [facility] ([facility]) [address] [place] [address] * CHLAMYDIA + GC AMPLIFIED PROBE (11/24/2018 2:32 PM CDT) Only the most recent of2 resultswithin the time period is included. Chlamydia Amplified Probe Negative Negative 11/27/2018 7:14 AM CDT [facility] GC Amplified Probe Negative Negative 11/27/2018 7:14 AM CDT [facility] Other ENTIRE ENDOCERVIX / Unknown Collection / Unknown 11/24/2018 2:32 PM CDT 11/24/2018 2:36 PM CDT Narrative [facility] - 11/27/2018 7:14 AM CDT Results based on detection/no detection of ribosomal RNA by amplified method. Alondra Saxena DO LAB - MICROBIOL OGY ORDERABLES [facility] [address] [place], [place] [address] [phone] * HEPATITIS B SURFACE ANTIGEN W RFLX CONFIRMATION (11/24/2018 2:32 PM CDT) HBsAg Non Reactive Non Reactive 11/24/2018 4:09 PM CDT [facility] Blood BLOOD SPECIMEN / Unknown Venipuncture / Unknown 11/24/2018 2:32 PM CDT 11/24/2018 2:36 PM CDT Alondra Saxena DO LAB - CHEMISTRY ORDERABLES Performing Organization Address [facility] Co de Phone Number [facility] [address] [place] [phone] * HEPATITIS C ANTIBODY (11/24/2018 2:32 PM CDT) Pathologist [facility] HCV Antibody Screen Non Reactive Non Reactive 11/24/2018 4:08 PM CDT [facility] HCV S/C Ratio 0.13 0.00 - 0.79 11/24/2018 4:08 PM CDT [facility] Comment: Faavck-vz-yzylay ratio (S/CO) <0.80:?? Non Reactive Blood BLOOD SPECIMEN / Unknown Venipuncture / Unknown 11/24/2018 2:32 PM CDT 11/24/2018 2:36 PM CDT Narrative [facility] - 11/24/2018 4:08 PM CDT Non Reactive - Antibodies to Hepatitis C virus (HCV) were not detected, result does not exclude early acute HCV infection. Alondra Saxena DO LAB - CHEMISTRY ORDERABLES Performing Organization Address City/[facility]/ZIP Co de Phone Number [facility] [address] [place] [address] * PATHOLOGY TISSUE (10/31/2018 8:22 AM CDT) Case Report Surgical Pathology Report ? Case: [id number] ? Authorizing Provider: ??Ayesha Chung MD ?Collected: ? 10/31/2018 08:22 AM ? Ordering Location: ? [facility] ?Received: ?10/31/2018 10:35 AM ? Pathologist: ? Samantha To MD ? Specimens: ?? A) - Gastric, random gastric bx- R/O H Pyloric ? B) - Esophageal Biopsy, distal esophageal bx- ? C) - Esophageal Biopsy, proximal esophageal bx ? 11/01/2018 3:51 PM CDT [facility] Final Diagnosis Stomach, random, biopsy (A): - Chronic active gastritis with H. pylori organisms Esophagus, distal, biopsy (B): - Mild reflux esophagitis - No increase in intraepithelial eosinophils Esophagus, proximal, biopsy (C): - Mild reflux esophagitis - No increase in intraepithelial eosinophils 11/01/2018 3:51 PM [facility] Microscopic Description and Comment Microscopic examination substantiates the final diagnosis. 11/01/2018 3:51 PM [facility] Clinical History The patient is a 27-year-old woman with dysphagia and heartburn. Operative procedure/findings: EGD - normal esophagus, biopsied; normal stomach, biopsied; erythematous duodenopathy. 11/01/2018 3:51 PM [facility] Gross Description The requisition and specimen label(s) are identified with the patient name, Danna Sanchez. Received in formalin, specimen A, random gastric biopsies r/o H pylori , are multiple soft, pale-isabel tissue fragments ranging from 0.1 to 0.5 cm and measuring 1.2 x 0.2 x 0.2 cm. The specimen is entirely submitted in cassette A1. Received in formalin, specimen B, distal esophageal biopsy , are multiple soft, pale-isabel tissue fragments ranging from 0.1 to 0.2 cm, with an aggregate measurement of 0.7 x 0.1 x 0.1 cm. The specimen is entirely submitted in cassette B1. Received in formalin, specimen C, proximal esophageal biopsy , is a 0.2 cm soft, pale-isabel tissue fragment entirely submitted in cassette C1. OEM/ 11/01/2018 3:51 PM [facility] Disclaimer The performance characteristics of all immunohistochemical and indirect immunofluorescence stains (if any) cited in this report were determined by the Histopathology Laboratory of [facility]. Some of these tests were developed by our own laboratory and have not been cleared or approved by the US Food and Drug Administration. The FDA does not require this test to go through premarket FDA review. These tests are used for clinical purposes. They should not be regarded as investigational or for research. This laboratory is certified under the Clinical Laboratory Improvement Amendments (CLIA) as qualified to perform high complexity clinical laboratory testing. This case has been personally reviewed and interpreted by the attending (teaching) pathologist. 11/01/2018 3:51 PM [facility] Embedded Images 11/01/2018 3:[address] [facility] Biopsy, NOS GASTRIC CONTENTS SPECIMEN / Unknown 10/31/2018 8:22 AM CDT 10/31/2018 10:35 AM CDT Biopsy, NOS ESOPHAGEAL BIOPSY SPECIMEN / Unknown 10/31/2018 8:25 AM CDT 10/31/2018 10:35 AM CDT Biopsy, NOS ESOPHAGEAL BIOPSY SPECIMEN / Unknown 10/31/2018 8:27 AM CDT 10/31/2018 10:35 AM CDT Ayesha Chung MD LAB - PATHOLOGY/LUCIO VASQUES ORDERABLES [facility] [address] [phone] * EGD (10/31/2018 7:57 AM CDT) Report Endoscopy POC Endoscopy Department Report _ Patient Name: Danna Sanchez ? Procedure Date: 10/31/2018 7:57 AM ? Date of : 1990 Classification: Outpatient ?Gender: Female Ethnicity: Not or ? Race: White _ Providers: ?Ayesha Chung MD Referring MD: ? Mervin Kevin MD (Referring MD) Procedure: ?Upper GI endoscopy Indications: ?Dysphagia, Heartburn Medications: ?Monitored Anesthesia Care Comorbidities ? Bipolar, Anxiety, GERD Patient Profile: ?This is a 27 year old female. Refer to note in ?patient chart for documentation of history and ?physical. Description of Procedure: Pre-Anesthesia Assessment: ?- Prior to the procedure, a History and Physical ?was performed, and patient medications and ?allergies were reviewed. The patient's tolerance of ?previous anesthesia was also reviewed. The risks ?and benefits of the procedure and the sedation ?options and risks were discussed with the patient. ?All questions were answered, and informed consent ?was obtained. Prior Anticoagulants: The patient has ?taken no previous anticoagulant or antiplatelet ?agents. ASA Grade Assessment: II - A patient with ?mild systemic disease. After reviewing the risks ?and benefits, the patient was deemed in ?satisfactory condition to undergo the procedure. ?After obtaining informed consent, the endoscope was ?passed under direct vision. Throughout the ?procedure, the patient's blood pressure, pulse, and ?oxygen saturations were monitored continuously. The ?GIF-H190 was introduced through the mouth, and ?advanced to the second part of duodenum. The upper ?GI endoscopy was accomplished with ease. The ?patient tolerated the procedure well. ? Findings: ? Esophagogastric landmarks were identified: the Z-line was found at 38 cm ? and the lower esophageal sphincter was found at 38 cm from the incisors. ? The examined esophagus was normal. Biopsies were taken with a cold ? forceps for histology at the proximal, and distal esophagus to evaluate ? for eosinophilic esophagitis. Estimated blood loss was minimal. ? The entire examined stomach was normal. Biopsies were taken with a cold ? forceps for Helicobacter pylori testing. Estimated blood loss was ? minimal. ? Diffuse mildly erythematous mucosa without active bleeding and with no ? stigmata of bleeding was found in the duodenal bulb. ? Estimated Blood Loss: ? Estimated blood loss was minimal. Complications: ?No immediate complications. Impression: ? - Esophagogastric landmarks identified. ?- Normal esophagus. Biopsied. ?- Normal stomach. Biopsied. ?- Erythematous duodenopathy. Recommendation: ? - Patient has a contact number available for ?emergencies. The signs and symptoms of potential ?delayed complications were discussed with the ?patient. Return to normal activities tomorrow. ?Written discharge instructions were provided to the ?patient. ?- Resume previous diet. ?- Continue present medications. ?- Await pathology results. ?- Return to GI clinic as previously scheduled. ? Attending Participation: ??I was present and participated during the entire ?procedure, including non-lange portions. ? Procedure Code(s): ? --- Professional --- ? 85570, Esophagogastroduod enoscopy, flexible, transoral; with biopsy, ? single or multiple Diagnosis Code(s): ?--- Professional --- ?K31.89, Other diseases of stomach and duodenum ?R13.10, Dysphagia, unspecified ?R12, Heartburn CPT copyright 2016 [employer] [employer]. All rights reserved. The codes documented in this report are preliminary and upon loss prevention manager review may be revised to meet current compliance requirements. ____ Ayesha Chung MD 10/31/2018 8:37:34 AM Note Initiated On: 10/31/2018 7:57 AM Number of Addenda: 0 ? [facility] ? [address] [place] [address] [facility] 10/31/2018 7:57 AM CDT Fabi Montgomery MD GI PROCEDURE OR DERABLES [facility] * IMAGING/RADIOLOGY/XRAY RESULTS ORDER (07/03/2018 9:24 PM PIN WORKER) Only the most recent of4 resultswithin the time period is included. Anatomical Region Laterality Modality Other Narrative 07/03/2018 9:24 PM PIN WORKER Ordered by an unspecified provider. Scanned Document IMAGING * (ABNORMAL) CBC W AUTO DIFFERENTIAL (06/29/2018 4:28 AM PIN WORKER) Only the most recent of3 resultswithin the time period is included. WBC 20.5(H) 4.4 - 10.7 x10E9/L 06/29/2018 4:53 AM PIN WORKER [facility] WBC Corrected x10E9/L 06/29/2018 4:53 AM PIN WORKER [facility] RBC 2.79(L) 3.80 - 5.20 x10E12/L 06/29/2018 4:53 AM PIN WORKER [facility] Hemoglobin 8.5(L) 12.0 - 15.6 gm/dL 06/29/2018 4:53 AM [facility] Hematocrit 26.1(L) 35.9 - 45.5 % 06/29/2018 4:53 AM [facility] MCV 93.5 80.7 - 98.3 fl 06/29/2018 4:53 AM [facility] MCH 30.5 26.7 - 34.0 pg 06/29/2018 4:53 AM [facility] MCHC 32.6 30.8 - 35.9 gm/dL 06/29/2018 4:53 AM [facility] Platelet Count 234 153 - 416 x10E9/L 06/29/2018 4:53 AM [facility] RDW-CV 13.0 12.1 - 14.9 % 06/29/2018 4:53 AM [facility] MPV 11.6 9.4 - 12.9 fl 06/29/2018 4:53 AM [facility] Neutrophils % 81.2(H) 44.0 - 73.0 % 06/29/2018 4:53 AM [facility] Lymphocytes % 11.8(L) 20.0 - 43.0 % 06/29/2018 4:53 AM [facility] Monocytes % 6.0 5.0 - 13.0 % 06/29/2018 4:53 AM [facility] Eosinophils % 0.1 0.0 - 6.0 % 06/29/2018 4:53 AM [facility] Basophils % 0.2 0.0 - 2.0 % 06/29/2018 4:53 AM [facility] Immature Granulocytes 0.7 0 - 1 % 06/29/2018 4:53 AM [facility] Neutrophil Absolute 16.66(H) 2.01 - 7.14 x10E9/L 06/29/2018 4:53 AM [facility] Lymphocytes Absolute 2.42 1.07 - 3.94 x10E9/L 06/29/2018 4:53 AM [facility] Monocytes Absolute 1.23(H) 0.26 - 1.07 x10E9/L 06/29/2018 4:53 AM [facility] Eosinophils Absolute 0.02 0 - 0.47 x10E9/L 06/29/2018 4:53 AM [facility] Basophils Absolute 0.04 0 - 0.08 x10E9/L 06/29/2018 4:53 AM [facility] Immature Granulocytes Absolute 0.14(H) 0.00 - 0.06 x10E9/L 06/29/2018 4:53 AM [facility] nRBC Auto 0 /100 WBC 06/29/2018 4:53 AM [facility] Blood BLOOD SPECIMEN / Unknown Lab Venipuncture / Unknown 06/29/2018 4:28 AM PIN WORKER 06/29/2018 4:42 AM PIN WORKER Roselyn Davis MD LAB - HEMATOLOGY ORD ERABLES Performing Organization Address City/[facility]/ZIP Co de Phone Number [facility] [address] [place] [address] * CULTURE MRSA (06/29/2018 2:49 AM PIN WORKER) Only the most recent of2 resultswithin the time period is included. Culture Negative for methicillin-resist ant Staphylococcus aureus (MRSA) ROSANGELA 06/30/2018 8:[address] [facility] Microbiology ENTIRE RECTUM / Unknown Collection / Unknown 06/29/2018 2:49 AM PIN WORKER 06/29/2018 3:09 AM PIN WORKER Aniruhd Flores MD LAB - MICROBIOLOGY O RDERABLES [facility]CRO[facility]OLOGY [address] [place] [address], [facility] [phone] * GROSS + MICRO EXAM (STL) (06/29/2018 12:02 AM PIN WORKER) Case Report Surgical Pathology Report ? Case: [id number] ? Authorizing Provider: ??Roselyn Davis MD ? Collected: ? 06/29/2018 12:02 AM ? Ordering Location: ? [facility] ? Received: ?06/29/2018 08:04 AM ? Pathologist: ? Ward Jones MD ? Specimen: ?Placenta ? 06/30/2018 1:18 PM [facility] Final Diagnosis 1. Placenta, delivery: -- Third trimester placenta, 450 g -- No evidence of villitis -- Pigment-laden macrophages seen, consistent with meconium staining -- No evidence of chorioamnionitis -- 3-vessel umbilical cord with no evidence of vasculitis or funisitis SSD 06/30/2018 1:18 PM [facility] Gross Description The specimen is received in one formalin-filled containers labeled with the patient's name, Danna Sanchez, and placenta and consists of a 16 x 15 x 2.1 cm placenta. The umbilical cord is 30 cm long with five coils along its length, a paracentral insertion 3 cm from the closest margin, an average diameter of 1.2 cm, and cut surfaces which show three vessels and no obvious lesions. The membranes are pink-isabel, translucent, and insert marginally over 100% of the placental circumference. After trimming, the placenta is 450 gm. The surface is purple-brown and shows scattered subchorionic fibrin over approximately 10% of the its surface area. Maternal surface shows loosely adherent coagula and intact cotyledons. The placenta is serially sectioned to show solid soft maroon cut surfaces free of any obvious lesions. Assistant Plant Manager sections are submitted as follows: A1 - Umbilical cord and membrane roll A2 and A3 - Random placental disc. TF/scs 06/30/2018 1:18 PM [facility] Microscopic Description Placental disc, membrane, and umbilical cord examined. 06/30/2018 1:18 PM [facility] Disclaimer All histochemical and/or immunohistochemical results are interpreted with controls that demonstrate appropriate staining reactions before reporting results. Note on use of immunocytochemistry reagents: This test was developed and its performance characteristic determined by [facility], Department of Laboratory Medicine. It has not been cleared or approved by the U.S. Food and Drug Administration (FDA). The FDA has determined that such clearance or approval is not necessary. The test is used for clinical purpose. It should not be regarded as investigational or for research. This laboratory is certified to perform high complexity testing. 06/30/2018 1:18 PM [facility] Embedded Images 06/30/2018 1:18 PM [facility] Pathology/Cytolo gy ENTIRE PLACENTA / Unknown Collection / Unknown 06/29/2018 12:02 AM PIN WORKER 06/29/2018 8:04 AM [facility] Roselyn Davis MD LAB - PATHOLOGY/CYTO LOGY ORDERABLES [facility] [address] [place] [address] * PT PTT PANEL (06/28/2018 10:36 PM PIN WORKER) PT 9.9 9.5 - 11.6 sec 06/28/2018 11:21 PM [facility] INR 0.9 0.9 - 1.1 06/28/2018 11:21 PM [facility] PTT 22.2 21.0 - 32.0 sec 06/28/2018 11:21 PM [facility] Blood BLOOD SPECIMEN / Unknown Venipuncture / Unknown 06/28/2018 10:36 PM PIN WORKER 06/28/2018 11:06 PM [facility] Narrative [facility] - 06/28/2018 11:21 PM [facility] Conventional Warfarin Anticoagulant Therapy: INR Reference Range: ??2.0-3.0 Intensive Warfarin Anticoagulant Therapy: INR Reference Range: ? 2.5-3.5 Heparin Therapeutic Range for PTT: 47.7 - 68.6 seconds. Anirudh Flores MD LAB - COAGULATION OR DERABLES [facility] [address] [place] [address] * FIBRINOGEN ACTIVITY (06/28/2018 10:36 PM PIN WORKER) Fibrinogen 382 200 - 400 mg/dL 06/28/2018 11:17 PM [facility] Blood BLOOD SPECIMEN / Unknown Venipuncture / Unknown 06/28/2018 10:36 PM PIN WORKER 06/28/2018 11:06 PM PIN WORKER Anirudh Flores MD LAB - COAGULATION OR DERABLES Performing Organization Address [facility] Co de Phone Number [facility] [address] [place] [address] * (ABNORMAL) BLOOD GASES CORD QUITA (ISTAT) (06/28/2018 9:17 PM PIN WORKER) pH Cord Venous POCT 7.45(H) 7.28 - 7.40 pH 06/28/2018 9:47 PM [facility] pCO2 Cord Venous POCT 24(L) 35 - 45 mmHg 06/28/2018 9:47 PM [facility] pO2 Cord Venous POCT 34(H) 22 - 33 mmHg 06/28/2018 9:47 PM [facility] HCO3 Cord Arterial POCT 17(L) 22 - 24 mmol/L 06/28/2018 9:47 PM [facility] BE Cord Venous POCT Calc -5 -6.4 - 1.6 mmol/L 06/28/2018 9:47 PM [facility] TCO2 Cord Venous POCT 17(L) 22 - 30 mmol/L 06/28/2018 9:47 PM [facility] O2 Saturation % Cord Venous Calc POCT 70 % 06/28/2018 9:47 PM [facility] Site CORD QUITA 06/28/2018 9:47 PM [facility] Sample iSTAT CORD V 06/28/2018 9:47 PM [facility] Blood CORD BLOOD SPECIMEN / Unknown 06/28/2018 9:17 PM PIN WORKER 06/28/2018 9:47 PM PIN WORKER Nadia Zamora MD LAB - POINT OF CARE ORDERABLES Performing Organization Address [facility] Co de Phone Number [facility] [address] [place] [phone] * (ABNORMAL) BLOOD GASES CORD ART (ISTAT) (06/28/2018 9:13 PM PIN WORKER) pH Cord Arterial POCT 7.27 7.20 - 7.34 pH 06/28/2018 9:47 PM PIN WORKER [facility] pCO2 Cord Arterial POCT 39.1(L) 45 - 55 mmHg 06/28/2018 9:47 PM [facility] pO2 Cord Arterial POCT 16 12 - 25 mmHg 06/28/2018 9:47 PM [facility] HCO3 Cord Arterial POCT 18.0(L) 22 - 24 mmol/L 06/28/2018 9:47 PM [facility] BE Cord Arterial POCT -8(L) -2.9 - 8.3 mmol/L 06/28/2018 9:47 PM [facility] TCO2 Cord Arterial POCT 19 mmol/L 06/28/2018 9:47 PM [facility] O2 Saturation Cord Art % Calc POCT 18 % 06/28/2018 9:47 PM [facility] Site CORD ART 06/28/2018 9:47 PM [facility] Sample iSTAT CORD A 06/28/2018 9:47 PM [facility] Blood CORD BLOOD SPECIMEN / Unknown 06/28/2018 9:13 PM PIN WORKER 06/28/2018 9:47 PM PIN WORKER Nadia Zamora MD LAB - POINT OF CARE ORDERABLES [facility] [address] [place] [place] [address] * FENTANYL URINE (06/28/2018 1:51 PM PIN WORKER) Fentanyl Negative ng/mL 07/06/2018 12:19 PM PIN WORKER [facility] ([facility]) Comment:REFERENCE RANGE: NOT ESTABLISHED Norfentanyl Negative ng/mL 07/06/2018 12:19 PM PIN WORKER [facility] ([facility]) Comment:REFERENCE RANGE: NOT ESTABLISHED Sufentanil Negative ng/mL 07/06/2018 12:19 PM PIN WORKER [facility] ([facility]) Comment:REFERENCE RANGE: NOT ESTABLISHED Alfentanil Negative ng/mL 07/06/2018 12:19 PM PIN WORKER [facility] ([facility]) Comment:REFERENCE RANGE: NOT ESTABLISHED Norsufentanil Negative ng/mL 07/06/2018 12:19 PM PIN WORKER [facility] ([facility]) Comment:REFERENCE RANGE: NOT ESTABLISHED Acetyl Fentanyl Negative NEGATIVE ng/mL 07/06/2018 12:19 PM PIN WORKER [facility] ([facility]) Acetyl Norfentanyl Negative NEGATIVE ng/mL 07/06/2018 12:19 PM PIN WORKER [facility] ([facility]) Comment: This test was developed and its performance characteristics determined by [facility]. ??It has not been cleared or approved by the Food and Drug Administration. Urine URINE / Unknown Collection / Unknown 06/28/2018 1:51 PM PIN WORKER 06/28/2018 2:15 PM PIN WORKER Narrative [facility] ([facility]) - 07/06/2018 12:19 PM PIN WORKER Performed at: ??01 - [employer] [address] [place] [address] ??[phone] Professor Of Musicology: Danuta Napier Pharm, Phone: ??[phone] Khai Boland MD LAB - URINE CHEMISTR Y ORDERABLES [facility] ([facility]) [address] [place] [address] * (ABNORMAL) DRUG SCREEN TOX URINE PANEL (06/28/2018 1:51 PM PIN WORKER) Only the most recent of3 resultswithin the time period is included. Pathologist [facility] Amphetamines Screen Urine Not Detected Not Detected 06/28/2018 2:39 PM [facility] Barbiturates Screen Urine Not Detected Not Detected 06/28/2018 2:39 PM [facility] Benzodiazepines Screen Urine Not Detected Not Detected 06/28/2018 2:39 PM [facility] Cannabinoids Screen Urine Detected(A) Not Detected 06/28/2018 2:39 PM [facility] Cocaine Screen Urine Not Detected Not Detected 06/28/2018 2:39 PM PIN WORKER [facility] Methadone Screen Urine Not Detected Not Detected 06/28/2018 2:39 PM [facility] Opiate Screen Urine Not Detected Not Detected 06/28/2018 2:39 PM [facility] Phencyclidine Screen Urine Not Detected Not Detected 06/28/2018 2:39 PM [facility] Urine URINE / Unknown Collection / Unknown 06/28/2018 1:51 PM PIN WORKER 06/28/2018 2:15 PM PIN WORKER Narrative [facility] - 06/28/2018 2:39 PM PIN WORKER This drug screen is designed for MEDICAL purposes only. It is not to be used for legal purposes, including but not limited to worker's comp, police investigations, occupational issues, child custody, etc. ??Any positive result is only presumptive and must be confirmed with a separate confirmatory test ordered by the physician. Drug Screening Test Cutoff Values: AMPHETAMINES ?1000 ng/mL BARBITURATES ? 200 ng/mL BENZODIAZEPINES ??200 ng/mL CANNABINOIDS(THC) 50 ng/mL COCAINE ?300 ng/mL METHADONE ?300 ng/mL OPIATES ?300 ng/mL PHENCYCLIDINE(PCP)25 ng/mL Khai Boland MD LAB - URINE CHEMISTR Y ORDERABLES Performing Organization Address [facility] Co mn Phone Number [facility] [address] [place] [address] * TYPE + SCREEN PANEL (06/28/2018 1:45 PM PIN WORKER) ABO O 06/28/2018 2:54 PM PIN WORKER [facility] Rh Type Positive 06/28/2018 2:54 PM [facility] Comment:History checked. Antibody Screen Negative 06/28/2018 2:54 PM [facility] Blood Bank BLOOD SPECIMEN / Unknown Venipuncture / Unknown 06/28/2018 1:45 PM PIN WORKER 06/28/2018 2:15 PM PIN WORKER Lucy Butler MD LAB - BLOOD BANK ORD ERABLES Performing Organization Address City/[facility] Co de Phone Number [facility] [address] [place] [address], [facility] [phone] * SONOGRAM - LIMITED (06/22/2018 7:28 AM PIN WORKER) Only the most recent of2 resultswithin the time period is included. Anatomical Region Laterality Modality Other 06/22/2018 7:28 AM PIN WORKER Narrative 06/22/2018 12:10 PM PIN WORKER ? [facility] ?PHONE: ??FAX: Pat. Name: ?DANNA SANCHEZ Pat. No: ?[id number] Study Date: ?? 06/22/2018 ??7:28am , Age: ? 1990, 27 Pregnancies: ?? 7, Para 3033 Height: ? 67 in Weight: ? 145 lb LMP: ?09/28/2017 GA by LMP: ?38w1d GA by Base: ?? 38w1d ?? TRIP: 07/05/2018 GA Selected: ??38w1d (From [place]) TRIP: ?07/05/2018 Referring MD: Moshe, , [facility] Doll Wigs Hackler: ??Keri Liang RDMS CPT4: ? 19496 BMI: ?22.71 Hist/Ind: ? Mild polyhydramnios ?Left cleft lip/ palate ?G5: oligohydramnios & CD at term ?Asthma ?Bipolar I disorder ?Low-risk NIPT Heart Rate: 152 bpm Amniotic Fluid Index: 25.8cm (07.3-23.8)* Q1: 7.2cm ??Q2: 7.0cm ??Q3: 4.7cm ??Q4: 7.0cm ?? EVAL, PLACENTA Presentation: cephalic Placenta: anterior Heart Rate: 152 bpm Amniotic Fluid Volume: polyhydramnios CLINICAL SUMMARY Study Number: 6 IMPRESSION: ?? 1) Cabello gestation, 38w1d 2) There is persistent mild polyhydramnios RECOMMEND: ?? Maternal movement monitoring while awaiting admission for delivery (scheduled in 5 days) Thank you for allowing us the opportunity to care for your patient. Hilda Guillory MD <Electronic Signature> ??06/22/2018 12:07pm Josemanuel Lopez MD [facility] ORDERABLES * (ABNORMAL) CULTURE STREP B (06/07/2018 3:52 PM PIN WORKER) Culture Strep B Growth of Streptococcus agalactiae (Group B)(AA) ROSANGELA 06/09/2018 9:46 AM PIN WORKER [facility] MICRO[facility] Microbiology MISCELLANEOUS SAMPLES / Unknown Collection / Unknown 06/07/2018 3:52 PM PIN WORKER 06/07/2018 4:53 PM PIN WORKER Narrative [facility] MICRO[facility] - 06/09/2018 9:46 AM PIN WORKER Susceptibility testing of penicillin, other beta-lactam antibiotics, and vancomycin is not necessary for beta-hemolytic streptococci groups A,B,C and G because resistant strains have not been recognized. Dia Wilkinson MD LAB - MICROBIOLOGY O RDERABLES [facility] MICROBIOLOGY [address] [place] [address], [facility] [phone] * (ABNORMAL) URINE MICROSCOPIC ONLY REFLEX TO CULTURE (04/15/2018 1:48 PM CDT) Only the most recent of2 resultswithin the time period is included. Reflex Status Culture to follow 04/15/2018 2:13 PM CDT [facility] RBC UA 0-2 None Seen, 0-2, 3-5 # /hpf 04/15/2018 2:13 PM CDT [facility] WBC UA 0-5 None Seen, 0-5 # /hpf 04/15/2018 2:13 PM CDT [facility] Bacteria UA Trace(A) None Seen 04/15/2018 2:13 PM CDT [facility] Squamous Epithelial Cells 3-5 None Seen, 0-2, 3-5 /hpf 04/15/2018 2:13 PM CDT [facility] Mucus UA 1+ /LPF 04/15/2018 2:13 PM CDT [facility] Urine URINE SPECIMEN OBTAINED BY CLEAN CATCH PROCEDURE / Unknown Collection / Unknown 04/15/2018 1:48 PM CDT 04/15/2018 1:56 PM CDT Narrative [facility] - 04/15/2018 2:13 PM CDT Pastora Hernandez MD LAB - URINALYSIS ORDERABLES Performing Organization Address City/[facility]/ZIP Co de Phone Number [facility] [address] [place] [address] * (ABNORMAL) URINALYSIS REFLEX MICROSCOPIC REFLEX CULTURE (04/15/2018 1:48 PM CDT) Only the most recent of2 resultswithin the time period is included. Color UA Yellow Straw, Yellow 04/15/2018 2:12 PM CDT [facility] Clarity UA Clear Clear 04/15/2018 2:12 PM CDT [facility] Glucose UA Negative Negative 04/15/2018 2:12 PM CDT [facility] Bilirubin UA Negative Negative 04/15/2018 2:12 PM CDT [facility] Ketone UA Negative Negative 04/15/2018 2:12 PM CDT [facility] Specific [place] UA 1.005 1.005 - 1.030 04/15/2018 2:12 PM CDT [facility] Blood UA 3+(A) Negative 04/15/2018 2:12 PM CDT [facility] pH UA 7.0 5.0 - 8.0 pH 04/15/2018 2:12 PM CDT [facility] Protein UA Negative Negative 04/15/2018 2:12 PM CDT [facility] Urobilinogen UA Negative Negative mg/dL 04/15/2018 2:12 PM CDT [facility] Nitrite UA Negative Negative 04/15/2018 2:12 PM CDT [facility] Leukocyte UA 1+(A) Negative 04/15/2018 2:12 PM CDT [facility] Urine Microscopy Urine microscopy to follow 04/15/2018 2:12 PM CDT [facility] Reflex Status Culture to follow 04/15/2018 2:12 PM CDT [facility] Urine URINE SPECIMEN OBTAINED BY CLEAN CATCH PROCEDURE / Unknown Collection / Unknown 04/15/2018 1:48 PM CDT 04/15/2018 1:56 PM CDT Narrative [facility] - 04/15/2018 2:12 PM CDT Pastora Hernandez MD LAB - URINALYSIS ORDERABLES [facility] [address] [place], [place] [id number] * CULTURE URINE (04/15/2018 1:48 PM CDT) Only the most recent of2 resultswithin the time period is included. Pathologist [facility] Culture Urine <10,000 CFU/mL urogenital obed ROSANGELA 04/17/2018 4:00 AM CDT [facility]CRO[facility] Urine URINE SPECIMEN OBTAINED BY CLEAN CATCH PROCEDURE / Unknown Collection / Unknown 04/15/2018 1:48 PM CDT 04/15/2018 1:56 PM CDT Pastora Hernandez MD LAB - MICROBIOLOG Y ORDERABLES [facility] [address] [place] [address], [facility] [phone] * GTT 3 HR (100G) GESTATIONAL DIAGNOSTIC (04/06/2018 11:24 AM CDT) Only the most recent of2 resultswithin the time period is included. Glucose Dose Gestational 100 gm 04/06/2018 11:55 AM CDT [facility] Gestational GTT Fasting 80 50-<95 mg/dL 04/06/2018 11:55 AM CDT [facility] Gestational GTT 1 HR 118 50-<180 mg/dL 04/06/2018 11:55 AM CDT [facility] Gestational GTT 2 HR 81 50-<155 mg/dL 04/06/2018 11:55 AM CDT [facility] Gestational GTT 3 HR 115 50-<140 mg/dL 04/06/2018 11:55 AM CDT [facility] Blood BLOOD SPECIMEN / Unknown Venipuncture / Unknown 04/06/2018 11:24 AM CDT 04/06/2018 8:24 AM CDT Anirudh Flores MD LAB - CHEMISTRY DEX [place] [facility] [address] [place] [address] * RPR (04/06/2018 10:01 AM CDT) RPR Non Reactive Non Reactive 04/07/2018 6:34 AM CDT [facility] Blood BLOOD SPECIMEN / Unknown Venipuncture / Unknown 04/06/2018 10:01 AM CDT 04/06/2018 10:33 AM CDT Roselyn Davis MD LAB - CHEMISTRY DEX [place]STA Performing Organization Address [facility] Co de Phone Number [facility] [address] [place] [address] * HEMOGLOBIN A1C (04/06/2018 10:01 AM CDT) [facility] Hemoglobin A1c 4.3 4.2 - 6.3 % 04/06/2018 11:33 AM CDT [facility] Estimated Average Glucose 77 mg/dL 04/06/2018 11:33 AM CDT [facility] Blood BLOOD SPECIMEN / Unknown Venipuncture / Unknown 04/06/2018 10:01 AM CDT 04/06/2018 10:33 AM CDT Roselyn Davis MD LAB - CHEMISTRY DEX [place] Performing Organization Address [facility] Co de Phone Number [facility] [address] [place] [address] * ECHO CONSULT - (04/03/2018 2:33 PM CDT) 04/03/2018 2:33 PM CDT Narrative Procedure Note Bharati Adler MD - 04/03/2018 [facility] [place] [phone] Fax Echocardiogram Report Pat.Name: DANNA SANCHEZ Pat.ID: [id number] .Date: 04/03/2018 Exam Time: 2:33:00 PM Study Type: Echo Age: 5 1990,27Y Sex: FEMALE Sonogrphr: Ivette Menezes NATHAN Pat. Stat.:Outpatient CPT - 4: 91336, 76880, 05301, [address]40 Reason for Study:Suspected Cardiac Abnormality History / Clinical: Echo Procedures: 2D Complete, Doppler Complete, Color Flow Visit ID: [id number] SUMMARY: Study Data: GA: 26/5 weeks. TRIP: 07-05-18 . : 6. Para: 3. Type: Cabello. Lie: Vertex. Impression: The echocardiogram was within normal limits; however small atrial and ventricular septal defects and persistent ductus arteriosus and coarctation of the aorta cannot be excluded as findings. Findings: Anatomic Relationships: Left sided cardiac apex (levocardia). There is normal visceral-cardiac situs, and normal segmental cardiac anatomical relationship. Systemic Veins: There is normal systemic venous return. Pulmonary Veins: The visualized pulmonary veins drain normally to the left atrium. Right Atrium: The right atrial size is normal. Left Atrium: The left atrial size is normal. Atrial Septum: Patent foramen ovale is seen with the foramen flap bowing from right to left and color flow is right to left. Tricuspid Valve: The tricuspid valve is structurally normal. The inflow pattern is normal. Tricuspid velocity is within the normal range. There is no regurgitation present. Mitral Valve: The mitral valve is structurally normal. The inflow pattern is normal. Mitral velocity is within the normal range. There is no regurgitation present. Right Ventricle: The cavity size is normal. The wall thickness is normal. The systolic function is normal. RV Outflow Tract: The outflow tract is normal. Left Ventricle: The cavity size is normal. The wall thickness is normal. The systolic function is normal. LV Outflow Tract: The outflow tract is normal. Ventricular Septum: There is no defect with no shunting. Pulmonary Valve: Leaflets exhibited normal mobility. The transpulmonic velocity is within the normal range. There is no regurgitation present. Aortic Valve: Leaflets exhibited normal mobility. The transaortic velocity is within the normal range. There is no regurgitation present. Pulmonary Artery: The MPA is normal with confluent branch pulmonary arteries. Aorta: aortic arch visualized and is without obstruction by 2D, color flow and Doppler. Ductus Arteriosus: The antegrade flow velocity and pattern in the ductal arch is normal. A normal ductus arteriosus is appreciated. Hydrops Assessment: No pericardial effusion. No evidence of ascites or pleural effusion. Rhythm: The rhythm is normal. Dopplers: Flow in the ductus venosus is normal. The umbilical vein flow pattern is normal. The umbilical artery flow pattern is normal. MEASUREMENTS: DOPPLER Mitral Valve MV pkE -0.2 m/s MV E/A 0.5 no unit MV pkA -0.4 m/s Tricuspid Valve TV pkE 0.3 m/s TV E/A 0.7 no unit TV pkA 0.4 m/s Aortic Valve AVpkVel 0.6 m/s Pulmonic Valve PV pkVel -0.7 m/s HR 150 bpm Signed 04/03/2018 04:50 PM Bharati Adler MD Tino Adler MD ECHO ORDERABLES [facility] [address] [place] [address] * CARDIOLIPIN ANTIBODY IGG/IGM PANEL (12/29/2017 12:14 PM CDT) Cardiolipin Antibody IgG <9 0 - 14 GPL U/mL 12/30/2017 3:13 PM CDT [facility] ([facility]) Comment: ?Negative: ?<15 ?Indeterminate: ? 15 - 20 ?Low-Med Positive: >20 - 80 ?High Positive: ? >80 Cardiolipin Antibody IgM <9 0 - 12 MPL U/mL 12/30/2017 3:13 PM CDT [facility] ([facility]) Comment: ?Negative: ?<13 ?Indeterminate: ? 13 - 20 ?Low-Med Positive: >20 - 80 ?High Positive: ? >80 Blood BLOOD SPECIMEN / Unknown Venipuncture / Unknown 12/29/2017 12:14 PM CDT 12/29/2017 1:30 PM CDT Narrative [facility] ([facility]) - 12/30/2017 3:13 PM CDT Performed at: ??01 - [facility] [address] [place], [place] ??[id number] Professor Of Musicology: Chace Salgado PhD, Phone: ??[phone] Anirudh Flores MD LAB - SEROLOGY ORDER MARGUERITE Performing Organization Address City/State/[facility] Co de Phone Number [facility] [address] [place] [address] * LUPUS ANTICOAGULANT PANEL W RFLX (12/29/2017 12:14 PM CDT) PTT-LA 29.9 0.0 - 51.9 sec 01/01/2018 4:08 PM CDT [facility] ([facility] [facility] dRVVT 28.5 0.0 - 47.0 sec 01/01/2018 4:08 PM CDT [facility] ([facility]) Interpretation Comment: 01/01/2018 4:08 PM CDT [facility] ([facility]) Comment:No lupus anticoagula nt was detected. Blood BLOOD SPECIMEN / Unknown Venipuncture / Unknown 12/29/2017 12:14 PM CDT 12/29/2017 1:30 PM CDT Narrative [facility] ([facility]) - 01/01/2018 4:08 PM CDT Performed at: ??01 - [facility] [address] ??[id number] Professor Of Musicology: Mark Perez MD, Phone: ??[phone] Anirudh Flores MD LAB - HEMATOLOGY ORD ERABLES [facility] ([facility]) [address] [address] * BETA-2 GLYCOPROTEIN 1 ANTIBODY IGG/IGM PANEL (12/29/2017 12:14 PM CDT) Pathologist [facility] Beta-2 Glycoprotein I Antibody IgG <9 0 - 20 GPI IgG units 12/31/2017 6:15 AM CDT [facility] ([facility]) Comment: The reference interval reflects a 3SD or 99th percentile interval, which is thought to represent a potentially clinically significant result in accordance with the International Consensus Statement on the classification criteria for definitive antiphospholipid syndrome (APS). J Thromb Haem 2006;4:295-306. Beta-2 Glycoprotein I Antibody IgM <9 0 - 32 GPI IgM units 12/31/2017 6:15 AM CDT [facility] Comment: The reference interval reflects a 3SD or 99th percentile interval, which is thought to represent a potentially clinically significant result in accordance with the International Consensus Statement on the classification criteria for definitive antiphospholipid syndrome (APS). J Thromb Haem 2006;4:295-306. Blood BLOOD SPECIMEN / Unknown Venipuncture / Unknown 12/29/2017 12:14 PM CDT 12/29/2017 1:30 PM CDT Narrative [facility] ([facility]) - 12/31/2017 6:15 AM CDT Performed at: ??01 - [facility] ??[id number] Professor Of Musicology: Mark Perez MD, Phone: ??[phone] Anirudh Flores MD LAB - CHEMISTRY DEX ACOSTA [facility] ([facility]) [address] [place] [address] * BLOOD TYPE ABO+ RH PANEL (12/29/2017 12:14 PM CDT) ABO O 12/29/2017 1:54 PM CDT [facility] Rh Type Positive 12/29/2017 1:54 PM CDT [facility] Comment:No prev hx found Blood Bank BLOOD SPECIMEN / Unknown Lab Venipuncture / Unknown 12/29/2017 12:14 PM CDT 12/29/2017 1:32 PM CDT Josemanuel Lopez MD LAB - BLOOD BANK ORD DANA Performing Organization Address [facility]/ZIP Co de Phone Number [facility] [address] [phone] * GLUCOSE CHALLENGE (12/29/2017 12:14 PM CDT) Pathologist [facility] Glucose Challenge 131 64 - 140 mg/dL 12/29/2017 2:08 PM CDT [facility] Glucose Challenge Time 12/29/2017 2:08 PM CDT [facility] Blood BLOOD SPECIMEN / Unknown Venipuncture / Unknown 12/29/2017 12:14 PM CDT 12/29/2017 1:30 PM CDT Anirudh Flores MD LAB - CHEMISTRY DEX ACOSTA Performing Organization Address City/[facility]/ZIP Co de Phone Number [facility] [address] [place] [address] * PANORAMA TEST (12/29/2017) Trisomy 21 Low Risk Trisomy 18 Low Risk Trisomy 13 Low Risk Monosomy X Low Risk Triploidy/Abbie shing Twin NIPT Low Risk Blood BLOOD SPECIMEN / Unknown 12/29/2017 Narrative Josefina Hassan RN - 12/29/2017 NIPT predicted gender: ??Male Fraction: 8.1% Panorama - michael screen Hard copy results are scanned under media. Josemanuel Lopez MD LAB - CHEMISTRY DEX ACOSTA * PATHOLOGY/GENETICS HISTORICAL-ONBASE (10/22/2016) 10/22/2016 Historical Provider LAB - CHEMISTRY O RDERABLES [address] * PATHOLOGY TISSUE FOR DERMATOLOGY (10/22/2016 12:00 AM CDT) Result CASE: [id number] PATIENT: DANNA SANCHEZ PATHOLOGIC DIAGNOSIS: Left nasal lesion: EPIDERMOID CYST WITH EVIDENCE OF RUPTURE PRESENT AT MARGIN CLINICAL DATA: Epidermoid cyst. Check margins. GROSS DESCRIPTION: Received is one formalin filled container labeled with the patients name. The specimen consists of a ??[id number] excision of skin. The margin is inked green. The specimen is bisected lengthwise and submitted in 1 cassette. Jar 0. MICROSCOPIC DESCRIPTION: Within the dermis, there is a space lined by epithelium that resembles normal epidermis and the infundibular portion of the hair follicle. Surrounding this is an infiltrate with neutrophils, histiocytes, and multinucleated giant cells. This lesion is present at the margin of the specimen. Electronically signed out by Randa Elizalde M.D. 10/25/2016 12:41:26PM [facility] Comment: Performed at: Dermatopathology Laboratory [facility] - Department of Dermatology [address] [facility] [place] [address] Phone number: [phone] FAX: [phone] Skin (tissue) specimen (specimen) 10/22/2016 10/22/[address] [facility] - 10/26/2016 8:26 AM CDT Preferred Lab:->Derm-Path Specimen A: Type->Excision ?Site->Left nasal lesion ?History->Left nasal lesion ?Impression->Left nasal epidermoid cyst ?Check Margins:->Yes ?Prior Biopsy->No Fredy Roche MD LAB - PATHOLOGY/CYTO LOGY ORDERABLES [facility] [address] [place] [address], [facility] [phone] * XR PANOREX (09/20/2016 10:16 AM CDT) Anatomical Region Laterality Modality Head Other Impressions 09/20/2016 6:11 PM CDT IMPRESSION: Known healing/healed mandibular fracture is not identified. Lucency around the third left molar tooth which may represent periodontal disease/periapical abscess. Report dictated by Nelson Chiu MD (resident in diagnostic radiology). This report was approved ??by Sharonda Chiu M.D. ?? on 09/20/2016 5:[address] Ankur Rice M.D. have personally reviewed and interpreted this examination/study. This report was electronically signed by Ankur RICKETTS M.D. ??on 09/20/2016 6:11 PM . Narrative 09/20/2016 6:11 PM CDT EXAMINATION: Panorex HISTORY: Mandibular fracture 2014 COMPARISON: None FINDINGS: Artifactual shadows projects over the maxilla, limiting evaluation. The known healing/healed mandibular fracture is not identified. A dental baptism is seen in the left upper maxillary molar tooth. No dental caries are identified. There is a lucency around the left third molar tooth which may represent periodontal disease/periapical abscess. The visible portions of the temporomandibular joints are intact. Procedure Note Bailey Ricketts MD - 09/23/2017 EXAMINATION: Panorex HISTORY: Mandibular fracture 2014 COMPARISON: None FINDINGS: Artifactual shadows projects over the maxilla, limiting evaluation. Theknown healing/healed mandibular fracture is not identified. A dentalrestoration is seen in the left upper maxillary molar tooth. No dentalcaries are identified. There is a lucency around the left third molar tooth which may represent periodontaldisease/periapical abscess. The visible portions of the temporomandibularjoints are intact. IMPRESSION IMPRESSION: Known healing/healed mandibular fracture is not identified. Lucency around the third left molar tooth which may represent periodontaldisease/periapical abscess. Report dictated by Nelson Chiu MD (resident in diagnostic radiology). This report was approved by Sharonda Chiu M.D. on 09/20/2016 5:24PM . I, Dr. Ankur RICKETTS M.D. have personally reviewed and interpreted thisexamination/study. This report was electronically signed by Ankur RICKETTS M.D. on09/20/2016 6:11 PM . Fredy Roche MD DIAGNOSTIC IMAGING O RDERABLES * (ABNORMAL) HCG URINE QUALITATIVE - POCT (IP) [facility] (12/13/2014 10:22 PM CDT) Only the most recent of2 resultswithin the time period is included. POSITIVE(A ) [facility] PETEY (ITA) Comment:Biomedical Equipment Specialist: XU NIETO 12/13/2014 10:2 2 PM CDT Douglas Lea MD LAB - POINT OF CARE ORDERABLES [facility] PETEY SORIANO) Care Teams Dry Roaster Relationship Specialty Start Date End Date Mervin Kevin MD [address] [place] [address] PCP - General Family Medicine 12/29/17
--- OUTSIDE RECORDS SUMMARY | 2024-07-20 05:48 | XMS_ITS | Continuity of Care Document ---
Author Organization [facility] Address [address] [place] [address] Phone Care Team Providers Care Emergency Management Director Name Role Phone Rausch OD, Erasmo Unavailable Unavailable Advance Directives Directive Yes / No Effective Date File Name No Information Encounters Encounter Description Practice Location Reason(s) For Visit Diagnoses Date Provider Providers Copied on Encounter [facility], [address], [place], [place], [id number], [place] tel:[phone] [address] [facility] [place] No Information 4-200 4 Rausch OD Erasmo. [address] [place] , [address], [place], [address], [place]. tel:[phone] Family History Family Member Type Diagnosis Age At Onset No Information Payers Payer name Insurance type Covered green party ID Authoriza tion(s) Medicaid [facility] [id number] Social History Type Description Quantity Date Captured [...]
--- OUTSIDE RECORDS SUMMARY | 2024-07-20 05:48 | XMS_ITS | Clinical Summary ---
Author Organization [facility] Address [address] [place] [address] Care Team Providers Care Sanitation Officer Name Role Phone Mervin Kevin MD Primary Care Provider [phone] Allergies Active Allergy Reactions Criticality Noted Date Comments Nitrofurantoin Anaphylaxis High 12/29/2017 Medical History Medical History Date Comments Asthma Social History Tobacco Use Types Packs/Day Years Used Date Smoking Tobacco: Every Day Cigarettes Smokeless Tobacco: Never Personal Safety Answer Date Recorded Getting School Help Needed Not on file 08/21 Comments No Sex and Gender Information Value Date Recorded Sex Assigned at Not on file Legal Sex Female 4:55 AM [employer] Gender Identity Not on file Sexual Orientation Not on file Obstetrics History Last Filed Vital Signs Vital Sign Reading [...] of Treatment Not on file Care Teams Sanitation Officer Relationship Specialty Start Date End Date Mervin Kevin MD PCP - General Emergency Medicine 02/22/22
--- OUTSIDE RECORDS SUMMARY | 2024-07-20 05:48 | XMS_ITS | Clinical Summary ---
Author Organization [facility] Address [address] [place] [address]. [place], [place] [address] [place] [address] Care Team Providers Care Band Machine Operator Name Role Phone Mervin Kevin MD Primary Care Provider [phone] Social History Tobacco Use Types Packs/Day Years Used Date Smoking Tobacco: Never Assessed Comments Unknown Sex and Gender Information Value Date Recorded Sex Assigned at Not on file Legal Sex Female 10:18 AM MOLD CONSTRUCTION SUPERVISOR Gender Identity Not on file Sexual Orientation Not on file Last Filed Vital Signs Vital Sign Reading Time Taken Comments Blood Pressure 111/67 07/29/2017 9:58 AM MOLD CONSTRUCTION SUPERVISOR Pulse 72 07/29/2017 9:58 AM MOLD CONSTRUCTION SUPERVISOR Temperature - - Respiratory Rate - - Oxygen Saturation - - Inhaled Oxygen Concentration - - Weight 68 kg (150 lb) 07/29/2017 9:58 AM MOLD CONSTRUCTION SUPERVISOR Height 170.2 cm (5' 7 ) 07/29/2017 9:58 AM MOLD CONSTRUCTION SUPERVISOR Body Mass Index 23.49 07/29/2017 9:58 AM MOLD CONSTRUCTION SUPERVISOR Plan of Treatment Health Maintenance Due Date Last Done Comments Cervical Cancer Screening Pa p Smear (Age 30 to 64) Every 3 Years 1990 Annual Physical 1993 Hepatitis C 2008 DTaP, Tdap and Td Vaccines ( 1 - Tdap) 2009 Hepatitis B Vaccines (1 of 3 - 19+ 3-dose series) 2009 Cervical Cancer Screening Pa p with HPV Testing (Age 30 to 64) Every 5 Years 2020 Cervical Cancer Screening with HPV 2020 COVID-19 Vaccine ( - 2023-2 5 season) 2024 Influenza Adult (#1) 2024 HPV Vaccines Aged Out No longer eligi ble based on patient's age to complete this topic Meningococcal Vaccine Aged Out No ana gino eligible based on patient's age to complete this topic Pneumococcal Vaccine: Pediat rics (0 to 5 Years) and At-Risk Patients (6 to 64 Years) Aged Out No longer eligible b ased on patient's age to complete this topic RSV Immunizations Under 20 Months Aged Out No longer eligible based on patient's age to complete this topic Insurance Care Teams Band Machine Operator Relationship Specialty Start Date End Date Mervin Kevin MD [address] [address] PCP - General FAMILY PRACTICE 06/30/17
--- OUTSIDE RECORDS SUMMARY | 2024-07-20 05:48 | XMS_ITS | Clinical Summary ---
Author Organization [facility] Address [address] [address] Care Team Providers Care [employer] Truck Driver Name Role Phone Mervin Kevin MD Primary Care Provider [phone] Source Comments [facility],non-owned Affiliates and Associated Physician Practices is amultiple site organization consisting of ambulatory clinics and hospital sitesin [place], [place], [place] and [place]. This disclosure is being madepursuant to the Care Everywhere program and may not contain all information available regarding this patient. Last updated 18.[facility] Allergies Active Allergy Reactions Criticality Noted Date Comments Nitrofurantoin Anaphylaxis,Urticaria,Rash High 12/29 Medications * Be aware that medications may not be up to date on this document. Alwaysverify current medications with the patient. Medication Sig Dispensed Refills Start Date End Date Status valACYclovir (VALTREX) 500 MG tablet Take 1 tablet by mouth 2 times daily 30 tablet 11 12/29/2017 Active albuterol HFA (PROAIR HFA) 108 (90 BASE) MCG/ACT inhaler Inhale 2 puffs by mouth every 6 hours as needed 1 Inhaler 3 12/29/2017 Active calcium-vitamin D (OS-KRISTINE 500 + D) 500-200 mg-unit tablet Take 1 (one) tablet by mouth once daily Active albuterol (PROVENTIL;VENTOL IN) (2.5 MG/3ML) 0.083% nebulizer solution Inhale 2.5 mg by mouth every 4 hours as needed for Shortness of Breath or Wheezing 25 vial 5 04/27/2018 Active loratadine (CLARITIN) 10 MG tablet Take 1 tablet by mouth once daily 30 tablet 3 06/14/2018 Active famotidine (PEPCID) 20 MG tablet Take 1 (one) tablet by mouth 2 times daily Active predniSONE (DELTASONE) 10 MG tablet 3 tabs BID x4 days, 2 tabs BID x3 days, 1 tab BID x3 days then stop 42 tablet 12/12/2020 Active ERGOCALCIFEROL PO Take 1 capsule by mouth once a week Active ferrous sulfate 325 (65 FE) MG tablet Take 1 (one) tablet by mouth once daily Active fluticasone-salme terol (Wixela Inhub) 250-50 MCG/ACT inhaler Inhale 1 (one) puff by mouth two times daily at 4am and 4pm Active cyclobenzaprine (Flexeril) 10 MG tablet Take 1 (one) tablet by mouth 09/08/2022 Active dilTIAZem (Cardizem) 30 MG tablet Take 1 (one) tablet by mouth 2 times daily Active fluconazole (Diflucan) 100 MG tablet 01/29/2024 Active ipratropium (Atrovent) 0.06 % nasal spray SPRAY 1 SPRAY INTO NOSTRILS 4 TIMES A DAY NEEDED. Active ketorolac (Toradol) 10 MG tablet TAKE 1 TABLET BY MOUTH EVERY 6 HOURS X5 DAYS Active Linzess 72 MCG capsule Take 1 (one) capsule by mouth once daily Active metoprolol succinate XL 24hr (Toprol XL) 50 MG tablet Take 1 (one) tablet by mouth 2 times daily Active sertraline (Zoloft) 50 MG tablet TAKE 1 TABLET BY MOUTH EVERY DAY AFTER A MEAL Active traMADol (Ultram) 50 MG tablet Take 1 (one) tablet by mouth every 12 hours as needed Active acetaminophen (Tylenol) 500 MG tablet Take 1 (one) tablet by mouth every 6 hours as needed for Pain Maximum allowable Acetaminophen amount = 4 Grams (4000 mg) / 24 hours. 02/10/2024 Active docusate sodium (Colace) 100 MG capsule Take 1 (one) capsule by mouth once daily 14 capsule 02/10/2024 Active Additional Information Patient not taking.Reported on 02/22/2024 ondansetron, disintegrating, (Zofran ODT) 4 MG tablet Take 1 (one) tablet by mouth every 8 hours as needed for Nausea/Vomiting Allow tablet to dissolve on the tongue 14 tablet 02/10/2024 Active Additional Information Patient not taking.Reported on 02/22/2024 Active Problems Patient Care Coordination No te Formatting of this note migh t be different from the original. Nopp/mfcc 12/2017 GBS + (06/09/2018) Problem Noted Date Diagnosed Date History of MRSA infection 04/14/2018 Spinal stenosis 04/14/2018 Encounter for anatomic survey 03/06/2018 Overview (04/03/2018): 03/06/2018 Yu Sanchez was screened for depression using the [place] Depression Scale (EPDS) at her [facility] initial evaluation on 03/06/2018. Her initial score at baseline was 2. Based off of her score of 2, Yu does not warrant follow up. Patient will continue to be screened throughout , at intervals no closer than two weeks, for continued surveillance and early identification of depression until delivery. Patient reports mental health history. Diagnoses include anxiety and bipolar disorder. 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 Bipolar disease during in third trimes ter 12/29/2017 Overview (01/12/2018): Wellbutrin [Buproprion]: [place] FDA class C. No evidence of teratogenicity. Neonates exposed to this medication in the late 3rd trimester may need respiratory support, tube feeding and/or prolonged hospitalization. They benefit from evaluation for drug discontinuation syndrome and serotonin syndrome. Seroquel: [place] FDA safety category C. Late third trimester exposure is associated with withdrawal symptoms. Recommend 3rd trimester neonatology consult at [facility] due to psychiatric medications, if continued into the 3rd trimester. 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 [facility] PATIENT--PLEASE CALL [phone] (ex 2) IF TRIAGED OR ADMITTED Care Provider: Dr. Erasmo Wood [facility] consultants involved: RN-Rosana/Jayce; MFM-Vitor; Cleft Team-Kamila Mojica; Cardiology-Vitor Diagnosis: Cleft Lip & Palate follow up: per Cleft Team consult 9.10: Family will call to schedule a visit with the cleft palate team after the baby is born. Project Leader: undecided as of 04.03 Planned surveillance: Repeat ultrasound at [facility] at 32w & 36w; released from [facility] on 04.03.2018 Delivery location, mode, and GA: [facility], desires vaginal delivery Genetics note: genetic diagnostic testing was not performed. Pt did have NIPT which was low risk for trisomies 13/18/21 but this is not a diagnostic test. Patient desires microarray to be performed on cord blood at the time of delivery. Please draw at least 3cc cord blood in purple top EDTA tube. If after office hours, on a weekend or a holiday, please hold in refrigerator in sendout laboratory and call the genetic counselors at [phone] or [phone] to notify that specimen is ready for sendout. Order can be placed by genetic counselor in baby's chart at that time. Please request Genetics consult postnatally if clinically indicated by calling the Genetics office at [phone] prior to ordering genetic studies. Commodity Management Specialist Concerns: 03/06/18- Patient with history of bipolar and anxiety- does take medication Care plan based on evaluation and is subject to change based on assessment. See Images or Cardiac under Chart Review for US/ ECHO/ MRI reports. Fetus with suspected cleft l ip and palate, antepartum, other fetus 02/09/2018 08/06/2019 Overview (02/09/2018): Unilateral , left Second trimester 12/29/2017 0 08/11/2018 Encounter for ultrasound to assess growth 08/06/2019 Polyhydramnios, antepartum complication 08/11/2018 Immunizations Name Administration Dates Next Due INFLUENZA VACCINE, QUADR. (F LUZONE; FLULAVAL; FLUARIX; AFLURIA QUADRIVALENT; 6MO+), 0.5 ML (IIV4) 04/27/2018 MMR 06/30/2018 TDAP (7yrs+) 04/06/2018 Family History Medical History Relation Name Comments Diabetes - Type 2 Father Diabetes - Type 2 Paternal Grandfather Diabetes - Type 2 Paternal Grandmother Relation Name Status Comments Father Paternal Grandfather Paternal Grandmother Social History Tobacco Use Types Packs/Day Years [...] Oxygen Concentration 21% 06/30/2018 8 :39 AM [employer] Weight 74.8 kg (165 lb) 02/22/2024 10:16 AM CDT Height 170.2 cm (5' 7 ) 02/22/2024 10:16 AM CDT Body Mass Index 25.84 02/22/2024 10:16 AM CDT Plan of Treatment Health Maintenance Due Date Last Done Comments HEPATITIS B VACCINE (1 of 3 - 19+ 3-dose series) 2009 PNEUMOCOCCAL VACCINE (1 of 2 - PCV) 2009 PAP SMEAR 11/24/2021 11/24/2018 COVID-19 VACCINE (4 - 2023-2 5 season) 2024 10/09/2021, 04/20/2021, 03/30/2021 INFLUENZA VACCINE (#1) 2024 , 04/27/2018 DTAP/TDAP/TD VACCINES (2 - T d or Tdap) 04/06/2028 04/06/2018 ZOSTER VACCINE (1 of 2) 2040 HEPATITIS C SCREENING Completed 11/24/2018 HIV SCREENING Completed 11/24/2018, 04/06/2018 HIB VACCINE Aged Out No longer eligi ble based on patient's age to complete this topic HPV VACCINE Aged Out No longer eligi ble based on patient's age to complete this topic MENINGOCOCCAL (Group B) VACCINE Aged Out No longer eligible b ased on patient's age to complete this topic MENINGOCOCCAL VACCINE Aged Out No ana gino eligible based on patient's age to complete this topic Goals Goal Patient Goal Type Associated Problems Recent Progress Patient-Stated? Author Medication Management General On track( 019 9:25 AM CDT) No Perri Benson RN Note: Expected end date: ongoing Interventions: Take all medications as prescribed Let your doctor know right away about any changes in your medications Make sure to request a refill of your medication at least one week prior to your last dose Mobility General No Deanne Rodriguez, RN Note: Expected end date: 06/26/2021 The goal is to maintain or improve your mobility at the optimum level for you. Interventions: Mobility General No Deanne Rodriguez RN Note: Expected end date: 09/24/2021 The goal is to maintain or improve your mobility at the optimum level for you. Interventions: Procedures Procedure Name Priority Date/Time Associated Diagnosis Comments PAP LB RFLX HPV ASCU Routine 11/24/2018 2:32 PM CDT Well woman exam HEPATITIS C ANTIBODY Routine 11/24/2018 2:32 PM CDT Well woman exam HIV-1 HIV-2 ANTIBODY + HIV P24 AG PANEL Routine 11/24/2018 2:32 PM CDT Well woman exam from Last 3 Months or Most Recently Relevant to Health Maintenance Results * HIV-1 HIV-2 ANTIBODY + HIV P24 AG PANEL (11/24/2018 2:32 PM CDT) HIV1/2 Ab + P24 Ag Non Reactive Non Reactive 11/24/2018 3:32 PM CDT [facility] Blood BLOOD SPECIMEN / Unknown Venipuncture / Unknown 11/24/2018 2:32 PM CDT 11/24/2018 2:35 PM CDT Narrative [facility] - 11/24/2018 3:32 PM CDT No Laboratory evidence of HIV infection. Alondra Saxena DO LAB - CHEMISTRY ORDERABLES Performing Organization Address City/State/[facility] Co de Phone Number [facility] [address] [place] [address] * PAP LB RFLX HPV ASCU (11/24/2018 2:32 PM CDT) Diagnosis Comment 11/29/2018 11:13 AM CDT [facility] ([facility]) Comment:NEGATIVE FOR INTRAEP ITHELIAL LESION OR MALIGNANCY. Specimen Adequacy Comment 019 11:13 AM CDT [facility] ([facility]) Comment: Satisfactory for evaluation. ??Endocervical and/or squamous metaplastic cells (endocervical component) are present. Performed by Comment 11/29/2018 11:13 AM CDT [facility] ([facility]) Comment:Aamir Miller chnologist (ASCP) Comment . 11/29/2018 11:13 AM CDT [facility] ([facility]) Note Comment 11/29/2018 11:13 AM CDT [facility] ([facility]) Comment: The Pap smear is a screening test designed to aid in the detection of premalignant and malignant conditions of the uterine cervix. ??It is not a diagnostic procedure and should not be used as the sole means of detecting cervical cancer. ??Both false-positive and false-negative reports do occur. Note Comment 11/29/2018 11:13 AM CDT [facility] ([facility]) Comment: The HPV DNA reflex criteria were not met with this specimen result therefore, no HPV testing was performed. Pathology/Cytolo gy ENTIRE ENDOCERVIX / Unknown Collection / Unknown 11/24/2018 2:32 PM CDT 11/25/2018 7:38 AM CDT [facility] ([facility]) - 11/29/2018 11:13 AM CDT Performed at: ??[address] ??[id number] Hardboard Supervisor: Fe Cruz MD, Phone: ??[phone] Specimen Comment: Source.............Cervix;Endocervix Specimen Comment: No. of containers..01 ThinPrep Vial Alondra Saxena DO LAB - PATHOLOGY /CYTOLOGY ORDERABLES [facility] ([facility]) [address] [place] [address] * HEPATITIS C ANTIBODY (11/24/2018 2:32 PM CDT) HCV Antibody Screen Non Reactive Non Reactive 11/24/2018 4:08 PM CDT [facility] HCV S/C Ratio 0.13 0.00 - 0.79 11/24/2018 4:08 PM CDT [facility] Comment: Bfaerf-xk-mpfoqs ratio (S/CO) <0.80:?? Non Reactive Blood BLOOD SPECIMEN / Unknown Venipuncture / Unknown 11/24/2018 2:32 PM CDT 11/24/2018 2:36 PM CDT Narrative [facility] - 11/24/2018 4:08 PM CDT Non Reactive - Antibodies to Hepatitis C virus (HCV) were not detected, result does not exclude early acute HCV infection. Alondra Gasca [place] DO LAB - CHEMISTRY ORDERABLES [facility] [address] [place] [address] from Last 3 Months or Most Recently Relevant to Health Maintenance Advance Directives * Full Code (Latest Code Status on File) Date Activated Date Inactivated Comments 06/28/2018 1:00 PM 06/30/2018 1:33 PM Care Teams [employer] Truck Driver Relationship Specialty Start Date End Date Mervin Kevin MD [address] [facility] [address] [place] [address] PCP - General Family Medicine 12/29/17
--- OUTSIDE RECORDS SUMMARY | 2024-07-20 05:48 | XMS_ITS | Continuity of Care Document ---
Author Organization [facility] Address [address] [address] Phone Care Team Providers Care Plastic Surgeon Name Role Phone Pinky Daniels MD Unavailable [...] [facility], [address], [id number], [place] tel:[phone] [facility] No Information [address], [place], [address], [place]. tel:[phone] Referring Provider: Mervin Kevin, [address] [place] [address], [address]. tel:[phone] Est (Level 4) OFFICE/OUTPA TIENT VISIT [facility], [address] [place] [address], [id number], [place] tel:[phone] [facility] allergy symptoms (chief complaint) Recurrent acute suppurative otitis media w/o spontaneous rupture of ear drum of earOther allergic rhinitisSevere persistent asthmaAbnormal results of function studies of other systemsUn[facility] [address], [place], [address], [place]. tel:[phone] Referring Provider: Mervin Kevin, [address] [place] [address], [address]. tel:[phone] Est (Level 3) OFFICE/OUTPA TIENT VISIT [facility], [address] [place] [address], [id number], [place] tel:[phone] [facility] recurrent infections (chief complaint) Recurrent acute suppurative otitis media w/o spontaneous rupture of ear drum of earOther allergic rhinitisSevere persistent asthmaAbnormal results of function studies of other systems [address], [place], [address], [place]. tel:[phone] Referring Provider: Ruslan Reid, [address] [facility] [address], [place], [address]. tel:[phone] Est (Level 4) OFFICE/OUTPA TIENT VISIT [facility], [address] [place] [address], [id number], [place] tel:[phone] [facility] recurrent infections (chief complaint) Recurrent acute suppurative otitis media w/o spontaneous rupture of ear drum of earSevere persistent asthmaOther allergic rhinitisAbnorma l results of function studies of other systems [address], [place], [address], [place]. tel:[phone] Referring Provider: Ruslan Reid, [address] [facility] [address], [place], [address]. tel:[phone] New (Level 4) OFFICE/OUTPA TIENT VISIT [facility], [address] [place] [address], [id number], [place] tel:[phone] [facility] recurrent infections (chief complaint) Recurrent acute suppurative otitis media w/o spontaneous rupture of ear drum of earSevere persistent asthmaOther allergic rhinitis Fe-0 [address], [place], [address], [place]. tel:[phone] Referring Provider: Ruslan Reid, [address] [facility] [address], [place], [address]. tel:[phone] Family History Family Member Type Diagnosis Age At Onset Paternal aunt Problem Family history of rheumatoi d arthritis Father Problem Allergic rhinitis Brother Problem Asthma Paternal aunt Problem Lupus erythematosus Sister Problem Asthma Paternal grandmother Problem Asthma Payers Payer name Insurance type Covered constitution party ID Authormatt amado(s) [facility] [id number] Social History Type Description Quantity Date Captured Comments Alcohol Use Details Unknown Caffeine Use Details Unknown Tobacco Use Status No Information Smoking Status No Information Sex Female Chief Complaint And Reason For Visit No Information Reason For Referral Reason For Referral No Information Plan Of Treatment Date Type Action Status Future Order: Lab Order S. Pneum onia-23 Serotypes ([id number]), Sent on: Sent Future Order: Lab Order CBC With Diff ([id number]), Sent on: Sent Future Order: Lab Order ESR ([id number]), Sent o n: Sent Future Order: Lab Order CRP ([id number]), Sent on: Sent Future Order: Lab Order Comprehe nsive Metabolic Panel ([id number]), Sent on: Sent Future Order: Lab Order CBC With Differential ([id number]), Sent on: Sent Future Order: Lab Order Compleme nt Total (CH50) ([id number]), Sent on: Sent Future Order: Lab Order Immunogl obulins A/E/G/M, Serum ([id number]), Sent on: Sent Future Order: Lab Order Mannose Binding Lectin ([id number]), Sent on: Sent Future Order: Lab Order Strep Pn eumo 23 ([id number]), Sent on: Sent Future Order: Lab Order T- and B -Lymphocyte and Natural Killer Cell Profile ([id number]), Sent on: Sent Future Order: Lab Order Tetanus/ Diphtheria Antibody Profile ([id number]), Sent on: Sent History Of Present Illness [...] Recurrent InfectionsInterval Infections: Ramiro had Pneumovax on 3/9/23. She has not had post labs drawn yet.AsthmaHarmony is on Breztri 2 puffs twice daily [...] protective(She had Pneumovax on 09/02/22)08/12/22IgIgA: 126IgM: 79IgE: 471HO13: 58AH50: (deferred)Anti-Spn 23: decreased 02/16 = 65% protectiveAnti-Diphtheria: 0.1 (protective)Anti-Tetanus: 1.17 (protective)AEC: 215AANC: 16,641Flow CytometryCD3+: 56% (L), 1612 (wnl)CD3+CD4+: 35%, 7979YR8+CD8+: 26%, 772CD4/CD8 Ratio: 1.33CD16+CD56+: 32% (H), 912 (H)CD19+: 10%, (poor scan quality, best interpretation listed)IgG 995*IgG1 594*IgG2 270*IgG3 74*IgG4 74Environmental Immunocaps: +HDM, cockroach, grass, trees, weeds other than ragweed with total IgE 917E0GT Phenotype: PI*MMTB Quant Gold: negativeHRCT Chest on 04/30/22*Near complete resolution of previously noted RML consolidatePFT 09/2021 showed FEV1 89% with positive bronchodilator response (360 mL, 15% improvement) recurrent infections LV: 09/02/22S he has recurrent infections, asthma, and AR. [...] are planning a colonoscopy future.Data08/12/22IgIgA: 126IgM: 79IgE: 228UC36: 58AH50: (deferred)Anti-Spn 23: decreased 02/16 = 65% protectiveAnti-Diphtheria: 0.1 (protective)Anti-Tetanus: 1.17 (protective)AEC: 215AANC: 16,641Flow CytometryCD3+: 56% (L), 1612 (wnl)CD3+CD4+: 35%, 4260OQ9+CD8+: 26%, 772CD4/CD8 Ratio: 1.33CD16+CD56+: 32% (H), 912 (H)CD19+: 10%, (poor scan quality, best interpretation listed)IgG 995*IgG1 594*IgG2 270*IgG3 74*IgG4 74Environmental Immunocaps: +HDM, cockroach, grass, trees, weeds other than ragweed with total IgE 325P5RQ Phenotype: MMTB Quant Gold: negativeHRCT Chest on 04/30/22*Near complete resolution of previously noted RML consolidatePFT 09/2021 showed FEV1 89% with positive bronchodilator response (360 mL, 15% improvement) recurrent infections LV: 07/29/22 he has recurrent infections, asthma, and AR. [...] will see hematology next month.Data08/12/22IgIgA: 126IgM: 79IgE: 386VL19: 58AH50: (deferred)Anti-Spn 23: decreased 02/16 = 65% protectiveAnti-Diphtheria: 0.1 (protective)Anti-Tetanus: 1.17 (protective)AEC: 215AANC: 16,641Flow CytometryCD3+: 56% (L), 1612 (wnl)CD3+CD4+: 35%, 9847ME6+CD8+: 26%, 772CD4/CD8 Ratio: 1.33CD16+CD56+: 32% (H), 912 (H)CD19+: 10%, (poor scan quality, best interpretation listed)IgG 995*IgG1 594*IgG2 270*IgG3 74*IgG4 74Environmental Immunocaps: +HDM, cockroach, grass, trees, weeds other than ragweed with total IgE 911Q9CW Phenotype: MMTB Quant Gold: negativeHRCT Chest on [...] ACT: patient has asthma on Symbicort 160/4.5 ?cg 2 puffs BID and albuterol PRN (used [...] - pat auntRecurrent Infections - dad, edwar GM [believes grandmother was on ?IVIG)SHTobacco: Former Smoker [...] weeds other than ragweed with total IgE 642H1DU Phenotype: MMTB Quant Gold: negativeHRCT Chest on [...]
--- OUTSIDE RECORDS SUMMARY | 2024-07-20 05:48 | XMS_ITS | Referral Summary ---
Author Organization [facility] Experticity Address [address] [place] [address] Care Team Providers Care Manufacturing Assembler Name Role Phone Mervin Kevin MD Primary Care Provider [phone] Source Comments [facility]non-owned Affiliates and Associated Physician Practices is amultiple site organization consisting of ambulatory clinics and hospital sitesin [place] and [place]. This disclosure is being madepursuant to the Care Everywhere program and may not contain all information available regarding this patient. Last updated 18.[facility] Allergies Active Allergy Reactions Criticality Noted Date [...] Sanchez was screened for depression using the Sanborn Depression Scale (EPDS) at her [facility] initial evaluation on 03/06/2018. Her initial score [...] symptoms. Recommend 3rd trimester neonatology consult at [facility] due to psychiatric medications, if continued [...] from the original note were not included. [facility] PATIENT--PLEASE CALL [phone] (ex 2) IF TRIAGED OR ADMITTED Care Provider: Dr. Erasmo Wood [place] [facility] [place] consultants involved: RN-Rosana/Jayce; MFM-Vitor; Cleft Team-Kamila Mojica; Cardiology-Vitor Diagnosis: Cleft Lip & Palate follow up: per Cleft Team consult 9.10: Family will call to schedule a visit with the cleft palate team after the baby is born. Assistant Pastry Chef: undecided as of 04.03 Planned surveillance: Repeat ultrasound at [facility] at 32w & 36w; released from [facility] on 04.03.2018 Delivery location, mode, and GA: [facility], desires vaginal delivery Genetics note: genetic diagnostic [...] laboratory and call the genetic counselors at [phone] or [phone] to notify that specimen is ready for sendout. Order can be placed by genetic counselor in baby's chart at that time. Please request Genetics consult postnatally if clinically indicated by calling the Genetics office at [phone] prior to ordering genetic studies. Arresting Gear Operator Concerns: 03/06/18- Patient with history of bipolar [...] (IIV4) 04/27/2018 MMR 06/30/2018 TDAP (7yrs+) 04/06/2018 Social History Tobacco Use Types Packs/Day Years [...] Oxygen Concentration 21% 06/30/2018 8 :39 AM JUDGE Weight 74.8 kg (165 lb) 02/22/2024 10:16 AM CDT Height 170.2 cm (5' 7 ) 02/22/2024 10:16 AM CDT Body Mass Index 25.84 02/22/2024 10:16 AM CDT Functional Status Functional Status Response Date of Assess ment Is person deaf or have serious hearing difficult y? No 06/28/2018 Is person blind or have serious difficulty seein g? No 06/28/2018 Does person have serious dif ficulty walking/climbing stairs? No 06/28/2018 Does person have difficulty dressing/bathing? No 06/28/2018 Does person have difficulty doing errands alone? No 06/28/2018 Cognitive Status Response Date of Assessm ent Does person have difficulty concentrating/remembering/making decisions? No 06/28/2018 Plan of Treatment Not on file Goals Goal Patient Goal Type Associated Problems [...] your last dose Mobility General No Deanne Rodriguez RN Note: Expected end date: 06/26/2021 The [...] Reactive Non Reactive 11/24/2018 3:32 PM CDT [facility] Blood BLOOD SPECIMEN / Unknown Venipuncture / Unknown 11/24/2018 2:32 PM CDT 11/24/2018 2:35 PM CDT Narrative [facility] - 11/24/2018 3:32 PM CDT No Laboratory evidence of HIV infection. Alondra Saxena DO LAB - CHEMISTRY ORDERABLES [facility] [address] [place], [place] [id number] * PAP LB RFLX HPV ASCU (11/24/2018 2:32 PM CDT) Diagnosis Comment 11/29/2018 11:13 AM CDT [facility] ([facility]) Comment:NEGATIVE FOR INTRAEP ITHELIAL LESION OR MALIGNANCY. Specimen Adequacy Comment 019 11:13 AM CDT [facility] ([facility]) Comment: Satisfactory for evaluation. ??Endocervical and/or squamous metaplastic cells (endocervical component) are present. Performed by Comment 11/29/2018 11:13 AM CDT [facility] ([facility]) Comment:Aamir Miller chnologist (ASCP) Comment . 11/29/2018 11:13 AM CDT [facility] ([facility]) Note Comment 11/29/2018 11:13 AM CDT [facility] ([facility]) Comment: The Pap smear is a screening test designed to aid in the detection of premalignant and malignant conditions of the uterine cervix. ??It is not a diagnostic procedure and should not be used as the sole means of detecting cervical cancer. ??Both false-positive and false-negative reports do occur. Note Comment 11/29/2018 11:13 AM CDT [facility] ([facility]) Comment: The HPV DNA reflex criteria were not met with this specimen result therefore, no HPV testing was performed. Pathology/Cytolo gy ENTIRE ENDOCERVIX / Unknown Collection / Unknown 11/24/2018 2:32 PM CDT 11/25/2018 7:38 AM CDT Narrative [facility] ([facility]) - 11/29/2018 11:13 AM CDT Performed at: ??[address] ??[id number] Location Manager: Fe Cruz MD, Phone: ??[phone] Specimen Comment: Source.............Cervix;Endocervix Specimen Comment: No. of containers..01 ThinPrep Vial Alondra Saxena DO LAB - PATHOLOGY /CYTOLOGY ORDERABLES [facility] ([facility]) [address] [place] [address] * HEPATITIS C ANTIBODY (11/24/2018 2:32 PM CDT) HCV Antibody Screen Non Reactive Non Reactive 11/24/2018 4:08 PM CDT [facility] HCV S/C Ratio 0.13 0.00 - 0.79 11/24/2018 4:08 PM CDT [facility] Comment: Tutccf-xg-ovnfan ratio (S/CO) <0.80:?? Non Reactive Blood BLOOD SPECIMEN / Unknown Venipuncture / Unknown 11/24/2018 2:32 PM CDT 11/24/2018 2:36 PM CDT Narrative [facility] - 11/24/2018 4:08 PM CDT Non Reactive - Antibodies to Hepatitis C virus (HCV) were not detected, result does not exclude early acute HCV infection. Alondra Saxena DO LAB - CHEMISTRY ORDERABLES [facility] [address] [place] [address] from Last 3 Months or Most Recently Relevant to Health Maintenance Advance Directives * Full Code (Latest Code Status on File) Date Activated Date Inactivated Comments 06/28/2018 1:00 PM 06/30/2018 1:33 PM Care Teams Manufacturing Assembler Relationship Specialty Start Date End Date Mervin Kevin MD [address] [place] [address] PCP - General Family Medicine 12/29/17
== END 2024-07-19 14:42 | disposition home or self-care (01) ==
LOC: ANHLAB 14:43
PROVIDERS: PCP Emergency Medicine; Visit Provider Emergency Medicine
DX: D64.9 Anemia, unspecified (principal); J45.909 Unspecified asthma, uncomplicated; J44.9 Chronic obstructive pulmonary disease, unspecified
CPT/HCPCS: 36415; 80061; 82043; 82306; 83036; 84439; 84443; 85027; 85652; 86038; 86039; 86430

== ENCOUNTER 2024-08-26 20:22 | Emergency (ER) | payer OTHER, BC, MEDICAID, SELFPAY ==
[2024-08-26 20:27] VITALS: BP 126/79; PULSE 113; RESP 19; TEMP 36.7; O2SAT 100
[2024-08-26] MEDS: HYDROcodone/acetaminophen (*CRX) 5-325 MG TABLET 1 TAB PO (22:31)
--- NOTE | 2024-08-26 23:28 | ED.BACK ---
HPI - Back Pain/Injury General Chief Complaint: Back Pain/Injury Stated Complaint: tailbone injury Time Seen by Provider: 08/26/24 22:19 Source: patient Mode of arrival: ambulatory Limitations: no limitations History of Present Illness HPI Narrative: This is a 33-year-old female that presents to the emergency department for pain in her tailbone. Reports she went down a slide on Tuesday at a kids play place. She landed on the floor at the bottom. Since she has had pain in her tailbone. Pain is unrelieved with vrix-yei-jubbohn pain medications. She has also had some tingling down the left leg. She does report history of sciatica. Related Data Home Medications ?Medication ?Instructions ?Recorded ?Confirmed ?Last Taken ?Type budesonide-formoterol HFA 160 2 puff inhalation BID 11/09/19 09/23/23 Unknown History mcg-4.5 mcg/actuation aerosol inhaler (Symbicort) duloxetine 60 mg capsule,delayed 60 mg PO DAILY 11/09/19 09/23/23 Unknown History release vitamin B complex (B 1 tablet PO DAILY 11/09/19 09/23/23 Unknown History Complex-Vitamin B12 tablet) albuterol sulfate 90 mcg/actuation 1 puff inhalation Q4-6H PRN 09/10/22 09/23/23 Unknown History aerosol inhaler Shortness Of Breath Or Wheezing metoprolol succinate 50 mg 50 mg PO HS 09/10/22 09/23/23 Unknown History tablet,extended release 24 hr blood-gluc meter-wrist BP mntr 09/17/22 09/23/23 Unknown History (2Tek Glucose/Blood Pressure kit) fluticasone propionate 50 1 spray intranasal DAILY 09/17/22 09/23/23 Unknown History mcg/actuation nasal spray,suspension (Flonase Allergy Relief) ergocalciferol (vitamin D2) 1,250 50,000 mcg PO WEEKLY 10/04/22 09/23/23 Unknown History mcg (50,000 unit) capsule cyclobenzaprine 10 mg tablet 10 mg PO HS 10/13/22 11/15/22 Unknown History ferrous sulfate 325 mg (65 mg 325 mg PO BID 10/13/22 09/23/23 Unknown History iron) tablet tramadol 50 mg tablet 50 mg PO BID PRN Pain 10/13/22 09/23/23 Unknown History sumatriptan succinate 25 mg tablet mg PO 12/06/22 09/23/23 Unknown History calcium carbonate (Calcium 600) 600 mg PO DAILY 08/10/23 09/23/23 Unknown History aspirin 81 mg chewable tablet 81 mg PO DAILY 09/23/23 09/23/23 Unknown History Allergies Allergy/AdvReac Type Severity Reaction Status Date / Time nitrofurantoin (From Allergy Severe Swelling Verified 08/26/24 20:22 Macrobid) of Lip/Tongue/Throat Review of Systems Review of Systems: CONSTITUTIONAL: Denies fever NEUROLOGIC: Denies numbness, or weakness. All systems reviewed & are unremarkable except as noted in HPI and below PMFSH Past Medical History Medical History Anemia Bipolar 1 disorder Constipation COPD (chronic obstructive pulmonary disease) Diabetes Esophagitis GERD (gastroesophageal reflux disease) Heart palpitations Nausea & vomiting Numbness and tingling of left arm and leg Thyroid activity decreased Upper abdominal pain Surgical History Surgical History H/O gynecological procedure 11/18/22 hscope/d & c/bilat salpingectomy/ablation History of delivery x2 Family History Family History Father Diabetes mellitus Heart disease Social History Social History Smoking packs per day: 1.5 Smoking cigarettes per day: 30.0 Years smoked: 15 Smoking pack-years: 22.50 Smoking status: Former smoker Tobacco type: cigarettes Smoking end date: 03/27/22 Alcohol intake: current Alcohol use details: RARE Substance use: current Substance use type: marijuana Other substance usage details: 4 X DAY Last use: 11/08/2019 Do You Feel Safe in your Home?: Yes Lack of Transportation: No Lack of Food: Never True Current Housing: I Have Housing Concerned About Future Housing: No Difficulty Paying Gas/Electric Bills: YES Difficulty Paying for Meds: No Currently Unemployed: No Education: High School Diploma/GED Difficulty w/ Childcare or Family Care: No Living arrangements: with family Occupation/Education: occupation Gender identity (if verbalized by the patient): Female Sexual Orientation (if Verbalized by the Patient): Straight or Heterosexual Spiritual care concerns: No Exam Narrative: GENERAL: Well-appearing, well-nourished, and in no acute distress. HEAD: Normocephalic, atraumatic. EYES: EOMI. CHEST: Clear to auscultation. No respiratory distress. No wheezes rales or rhonchi HEART: Regular rate and rhythm. No murmur heard. Normal peripheral pulses. BACK: No midline spinal tenderness EXTREMITIES: Normal range of motion. No edema. Normal DP pulses. Strength equal in bilateral lower extremities (5/5) SKIN: Warm, dry, no rash. NEURO: No focal deficits. Alert and oriented x3. PSYCH: Normal mood and affect Course Course Emergency Course: Patient updated on her workup and agrees with plan of care Vital Signs Vital signs: Vital Signs Temperature 98.1 F 08/26/24 20:27 Pulse Rate 113 H 08/26/24 20:27 Respiratory Rate 19 08/26/24 20:27 Blood Pressure 126/79 08/26/24 20:27 Pulse Oximetry 100 08/26/24 20:27 Temperature 98.1 F 08/26/24 20:27 Pulse Rate 113 H 08/26/24 20:27 Respiratory Rate 19 08/26/24 20:27 Blood Pressure 126/79 08/26/24 20:27 Pulse Oximetry 100 08/26/24 20:27 MDM - Back Pain/Injury MDM Narrative Medical decision making narrative: Patient presents to the ER for tailbone pain after an injury 2 days ago. She is reporting some tingling in the left flank. She does report previous history of sciatica. She has normal strength in her lower extremities. No bowel or bladder incontinence. Sacrum/coccyx x-ray shows a coccygeal fracture. Instructed to rest, ice and take fqyx-aru-uurnsvh pain medication as needed. Will be given prescribed pain medication. She is to follow up with primary provider. She was given warnings to return to the ER Differential Diagnosis Differential diagnosis: Likely other (coccyx fracture, sacral fracture) Imaging Data Radiologist's impression: ITS Impressions Sacrum and Coccyx X-Ray 08/26/24 21:46 IMPRESSION: Fracture of the last sacral segment. Critical Care Time Critical Care Time Critical Care Time: No Discharge Plan Discharge Clinical Impression: Closed fracture of coccyx Qualifiers: Encounter type: initial encounter Qualified Code(s): S32.2XXA - Fracture of coccyx, initial encounter for closed fracture Patient Disposition: Home, Self-Care Condition: Stable Instructions: Acute Low Back Pain (ED) Additional Instructions: Return to the ER if you experience weakness, numbness, bowel/bladder incontinence, or any other symptoms that are concerning to you Rest, use ice/heat, take anti-inflammatories (Aleve, Ibuprofen, Naproxen, etc) or Tylenol as needed for pain. Prescribed pain medication as needed Follow up with your primary care doctor Patient Language: Malian Prescriptions: New hydrocodone-acetaminophen 5-325 mg tablet 1 tablet PO Q6H PRN (Reason: pain) Qty: 20 0RF No Action metoprolol succinate 50 mg tablet extended release 24 hr 50 mg PO HS albuterol sulfate 90 mcg/actuation HFA aerosol inhaler 1 puff inhalation Q4-6H PRN (Reason: Shortness Of Breath Or Wheezing) fluticasone propionate [Flonase Allergy Relief] 50 mcg/actuation spray,suspension 1 spray intranasal DAILY Rx Instructions: administer into each nostril (DME) 2Tek Glucose/Blood Pressure Kit See Rx Instructions .Route Rx Instructions: As directed aspirin 81 mg tablet,chewable 81 mg PO DAILY Linzess 72 mcg capsule 72 mcg PO DAILY 30 Days Qty: 30 5RF famotidine 20 mg tablet See Rx Instructions .ROUTE .COMPLEX Qty: 60 0RF Dose Instruction: TAKE 1 TABLET BY MOUTH TWICE A DAY Rx Instructions: TAKE 1 TABLET BY MOUTH TWICE A DAY ferrous sulfate 325 mg (65 mg iron) tablet 325 mg PO BID cyclobenzaprine 10 mg tablet 10 mg PO HS tramadol 50 mg tablet 50 mg PO BID PRN (Reason: Pain) sumatriptan succinate 25 mg tablet PO calcium carbonate [Calcium 600] 600 mg calcium (1,500 mg) tablet 600 mg PO DAILY ondansetron 4 mg tablet,disintegrating 4 mg PO Q8H PRN (Reason: nausea and vomiting) Qty: 10 0RF vitamin B complex [B Complex-Vitamin B12] Tablet 1 tablet PO DAILY duloxetine 60 mg Capsule,Delayed Release(Dr/Ec) 60 mg PO DAILY budesonide-formoterol [Symbicort] 160-4.5 mcg/actuation Hfa Aerosol Inhaler 2 puff INHALATION BID ergocalciferol (vitamin D2) 1,250 mcg (50,000 unit) capsule 50,000 mcg PO WEEKLY Patient Comments: PT TAKES ON TUESDAY ondansetron HCl 4 mg tablet 4 mg PO Q8H PRN (Reason: nausea and vomiting) Qty: 30 1RF acetaminophen 500 mg tablet 500 mg PO Q6H PRN (Reason: pain) Qty: 30 0RF ibuprofen 600 mg tablet 600 mg PO Q6H PRN (Reason: pain) Qty: 30 0RF omeprazole 40 mg capsule,delayed release(DR/EC) See Rx Instructions .ROUTE .COMPLEX Qty: 90 3RF Dose Instruction: TAKE 1 CAPSULE BY MOUTH EVERY DAY Rx Instructions: TAKE 1 CAPSULE BY MOUTH EVERY DAY valacyclovir [Valtrex] 500 mg tablet 500 mg PO DAILY Qty: 60 6RF fluconazole 150 mg tablet 150 mg PO Q72H Qty: 2 0RF Rx Instructions: as a single dose Follow-up/Referrals: Mervin Kevin MD [Primary Care Provider] -
[2024-08-26 23:43] VITALS: BP 124/80; PULSE 78; RESP 16; O2SAT 98
== END 2024-08-26 23:45 | disposition home or self-care (01) ==
PROVIDERS: Emergency Provider Physician Assistant; PCP Emergency Medicine
DX: S32.2XXA Fracture of coccyx, initial encounter for closed fracture (principal); E11.9 Type 2 diabetes mellitus without complications; J44.9 Chronic obstructive pulmonary disease, unspecified; K21.00 Gastro-esophageal reflux disease with esophagitis, without bleeding; F31.9 Bipolar disorder, unspecified; Z87.891 Personal history of nicotine dependence; Z90.79 Acquired absence of other genital organ(s); W09.0XXA Fall on or from playground slide, initial encounter
CPT/HCPCS: 72220; 99283; A9270

== ENCOUNTER 2024-09-23 00:35 | Emergency (ER) | payer BC, MEDICAID, SELFPAY ==
[2024-09-23] VITALS (14 sets, daily range): BP systolic 105–127; BP diastolic 61–74; PULSE 63–89; RESP 11–22; TEMP 36.4; O2SAT 99–100
--- NOTE | ~2024-09-23 | XR_ITS ---
CHEST RADIOGRAPH CLINICAL HISTORY: coughing up blood clots . COMPARISON: 06/13/2024 TECHNIQUE: Single portable view of the chest. FINDINGS The cardiomediastinal silhouette is unremarkable. The lungs are clear. IMPRESSION: No focal infiltrate or effusion. Reviewed, dictated and finalized at location A.
--- NOTE | ~2024-09-23 | CT_ITS ---
EXAMINATION: CTA chest PE protocol DATE: 09/23/2024 6:26 CDT INDICATION: Hemoptysis TECHNIQUE: Computed tomographic angiography (CTA) of the chest was performed with 100 mL Omnipaque-35 0 intravenous contrast. The dose-length product was 182.12 mGy-cm. Maximum intensity projection 3D-re constructions of the aorta and other arteries were constructed by the technologist on a separate work station. COMPARISON: None. FINDINGS/OBSERVATIONS: PULMONARY ARTERIES: No filling defect is identified within the main or proximal pulmonary artery. The main pulmonary artery is not enlarged. THORACIC AORTA: No aneurysmal dilatation or dissection is present. The great vessels are intact LUNGS: The lungs are clear. MEDIASTINUM: No morphologically suspicious or pathologically enlarged lymph nodes are identified with in the mediastinum or bilateral axilla. Within the right main bronchus, along the inferior medial border is a 7 mm focus of soft tissue atten uation for which direct visualization is recommended. BONES OF THE CHEST: No acute fracture. No significant degenerative disease. No lytic or blastic lesions. HEART: The heart is of normal size, without pericardial effusion. IMPRESSION: No pulmonary embolus. No thoracic aortic dissection. 7 mm focus of soft tissue attenuation for which direct visualization is recommended. Reviewed, dictated and finalized at location A. IMPRESSION: No pulmonary embolus. No thoracic aortic dissection. 7 mm focus of soft tissue attenuation for which direct visualization is recomme nded.
--- OUTSIDE RECORDS SUMMARY | 2024-09-23 00:37 | XMS_ITS | Continuity of Care Document ---
Author Organization [facility] Address [address] [place] [address] Phone Care Team Providers Care Staff Research Associate Name Role Phone Rausch OD, Erasmo Unavailable Unavailable Advance Directives Directive Yes / No Effective Date File Name No Information Encounters Encounter Description Practice Location Reason(s) For Visit Diagnoses Date Provider Providers Copied on Encounter [facility], [address], [place], [place], [id number], [place] tel:[phone] [facility] [place] No Information Apr- 4-200 4 Rausch OD Erasmo. [address] [facility] [address] [facility] [address] [place] , [address], [place], [address], [place]. tel:[phone] Family History Family Member Type Diagnosis Age At Onset No Information Payers Payer name Insurance type Covered democrat ID Authoriza tion(s) Medicaid [facility] [id number] Social History Type Description Quantity Date Captured [...]
--- OUTSIDE RECORDS SUMMARY | 2024-09-23 00:37 | XMS_ITS | Continuity of Care Document ---
Author Organization [facility] Address [address] [address] Phone Care Team Providers Care Cabana Attendant Name Role Phone Pinky Daniels MD Unavailable Unavailable Allergies, Adverse Reactions, Alerts Substance Reaction Status Criticality nitrofurantoin HivesHivesDifficulty breathing Active No Information Medications Medication Instructions Dosage Effective Dates (start - stop) Status Comments Breztri Aerosphere 160 mcg-9mcg-4.8mcg/actu ation HFA aerosol inhaler inhale 2 puff by inhalation route 2 times every day in the morning and evening 2.00 puff - Active Flonase Allergy Relief 50 mcg/actuation nasal spray,suspension spray 2 spray by intranasal route every day in each nostril 100-100 MCG - Active ipratropium bromide 21 mcg (0.03 %) nasal spray spray 2 spray by intranasal route 2- 3 times every day in each nostril 2.00 spray - Active Procedures Procedure Date Est (Level [...] [facility], [address], [id number], [place] tel:[phone] [facility] No Information 0 [address]. [address], [place], [address], [place]. tel:[phone] Referring Provider: Mervin Kevin, [address] [place] [address], [address]. tel:[phone] Est (Level 4) OFFICE/OUTPA TIENT VISIT [facility], [address] [place] [address], [id number], [place] tel:[phone] [facility] allergy symptoms (chief complaint) Recurrent acute suppurative otitis media w/o spontaneous rupture of ear drum of earOther allergic rhinitisSevere persistent asthmaAbnormal results of function studies of other [facility] 2 [address]. [address], [place], [address], [place]. tel:[phone] Referring Provider: Mervin Kevin, [address] [place] [address], [address]. tel:[phone] Est (Level 3) OFFICE/OUTPA TIENT VISIT [facility], [address] [place] [address], [id number], [place] tel:[phone] [facility] recurrent infections (chief complaint) Recurrent acute suppurative otitis media w/o spontaneous rupture of ear drum of earOther allergic rhinitisSevere persistent asthmaAbnormal results of function studies of other systems 0 3 [address], [place], [address], [place]. tel:[phone] Referring Provider: Ruslan Reid, [address] [facility] [address], [place], [address]. tel:[phone] Est (Level 4) OFFICE/OUTPA TIENT VISIT [facility], [address] [place] [address], [id number], [place] tel:[phone] [facility] recurrent infections (chief complaint) Recurrent acute suppurative otitis media w/o spontaneous rupture of ear drum of earSevere persistent asthmaOther allergic rhinitisAbnorma l results of function studies of other systems 3 Frances [address]. [address], [place], [address], [place]. tel:[phone] Referring Provider: Ruslan Reid, [address] [facility] [address], [place], [address]. tel:[phone] New (Level 4) OFFICE/OUTPA TIENT VISIT [facility], [address] [place] [address], [id number], [place] tel:[phone] [facility] recurrent infections (chief complaint) Recurrent acute suppurative otitis media w/o spontaneous rupture of ear drum of earSevere persistent asthmaOther allergic rhinitis Fe-0 3 Frances [address]. [address], [place], [address], [place]. tel:[phone] Referring Provider: Ruslan Reid, [address] [facility] [address], [place], [address]. tel:[phone] Family History Family Member Type Diagnosis Age At Onset Paternal aunt Problem Family history of rheumatoi d arthritis Father Problem Allergic rhinitis Brother Problem Asthma Paternal aunt Problem Lupus erythematosus Sister Problem Asthma Paternal grandmother Problem Asthma Payers Payer name Insurance type Covered constitution party ID Authormatt amado(s) [facility] [id number] Social History Type Description Quantity Date Captured Comments Alcohol Use Details Unknown Caffeine Use Details Unknown Tobacco Use Status No Information Smoking Status No Information Sex Female Chief Complaint And Reason For Visit No Information Reason For Referral Reason For Referral No Information Plan Of Treatment Date Type Action Status Future Order: Lab Order S. Pneum onia-23 Serotypes ([id number]), Sent on: Sent Future Order: Lab Order CBC With Diff ([id number]), Sent on: Sent Future Order: Lab Order ESR ([id number]), Sent o n: Sent Future Order: Lab Order CRP ([id number]), Sent on: Sent Future Order: Lab Order Comprehe nsive Metabolic Panel ([id number]), Sent on: Sent Future Order: Lab Order CBC With Differential ([id number]), Sent on: Sent Future Order: Lab Order Compleme nt Total (CH50) ([id number]), Sent on: Sent Future Order: Lab Order Immunogl obulins A/E/G/M, Serum ([id number]), Sent on: Sent Future Order: Lab Order Mannose Binding Lectin ([id number]), Sent on: Sent Future Order: Lab Order Strep Pn eumo 23 ([id number]), Sent on: Sent Future Order: Lab Order T- and B -Lymphocyte and Natural Killer Cell Profile ([id number]), Sent on: Sent Future Order: Lab Order Tetanus/ Diphtheria Antibody Profile ([id number]), Sent on: Sent History Of Present Illness [...] protective(She had Pneumovax on 09/02/22)08/12/22IgIgA: 126IgM: 79IgE: 498IF78: 58AH50: (deferred)Anti-Spn 23: decreased 02/16 = 65% protectiveAnti-Diphtheria: 0.1 (protective)Anti-Tetanus: 1.17 (protective)AEC: 215AANC: 16,641Flow CytometryCD3+: 56% (L), 1612 (wnl)CD3+CD4+: 35%, 4183JW7+CD8+: 26%, 772CD4/CD8 Ratio: 1.33CD16+CD56+: 32% (H), 912 (H)CD19+: 10%, (poor scan quality, best interpretation listed)IgG 995*IgG1 594*IgG2 270*IgG3 74*IgG4 74Environmental Immunocaps: +HDM, cockroach, grass, trees, weeds other than ragweed with total IgE 169V4VL Phenotype: PI*MMTB Quant Gold: negativeHRCT Chest on [...] are planning a colonoscopy future.Data08/12/22IgIgA: 126IgM: 79IgE: 018SJ81: 58AH50: (deferred)Anti-Spn 23: decreased 02/16 = 65% protectiveAnti-Diphtheria: 0.1 (protective)Anti-Tetanus: 1.17 (protective)AEC: 215AANC: 16,641Flow CytometryCD3+: 56% (L), 1612 (wnl)CD3+CD4+: 35%, 8397AT9+CD8+: 26%, 772CD4/CD8 Ratio: 1.33CD16+CD56+: 32% (H), 912 (H)CD19+: 10%, (poor scan quality, best interpretation listed)IgG 995*IgG1 594*IgG2 270*IgG3 74*IgG4 74Environmental Immunocaps: +HDM, cockroach, grass, trees, weeds other than ragweed with total IgE 212S4IC Phenotype: MMTB Quant Gold: negativeHRCT Chest on [...] will see hematology next month.Data08/12/22IgIgA: 126IgM: 79IgE: 376PR08: 58AH50: (deferred)Anti-Spn 23: decreased 02/16 = 65% protectiveAnti-Diphtheria: 0.1 (protective)Anti-Tetanus: 1.17 (protective)AEC: 215AANC: 16,641Flow CytometryCD3+: 56% (L), 1612 (wnl)CD3+CD4+: 35%, 6193ZS2+CD8+: 26%, 772CD4/CD8 Ratio: 1.33CD16+CD56+: 32% (H), 912 (H)CD19+: 10%, (poor scan quality, best interpretation listed)IgG 995*IgG1 594*IgG2 270*IgG3 74*IgG4 74Environmental Immunocaps: +HDM, cockroach, grass, trees, weeds other than ragweed with total IgE 432K7DC Phenotype: MMTB Quant Gold: negativeHRCT Chest on [...] weeds other than ragweed with total IgE 054W9NT Phenotype: MMTB Quant Gold: negativeHRCT Chest on [...]
--- OUTSIDE RECORDS SUMMARY | 2024-09-23 00:37 | XMS_ITS | Data Portability ---
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 Referral None recorded. Procedures None recorded. Surgeries None recorded. Imaging None recorded. Medication Orders albuterol sulfate HFA 90 mcg/actua tion aerosol inhaler 2023 024 [facility] #[id number], [address], [place], [address], 01/12/2024 11:00:41 Wixela Inhub 250 mcg-50 mcg/dose powder for inhalatio n 2023 024 [facility] #[id number], [address] [place], [address], 01/12/2024 11:00:41 ipratropi um bromide 42 mcg (0.06 %) nasal spray 2023 024 [facility] #[id number], [address] [place], [address], 01/12/2024 11:00:42 albuterol sulfate HFA 90 mcg/actua tion aerosol inhaler 2022 023 [facility] #[id number], [address], [place], [address], 02/07/2023 10:06:41 ipratropi um bromide 42 mcg (0.06 %) nasal spray 2022 023 [facility] #[id number], [address] [place], [address], 02/07/2023 10:00:36 Patient TargetsNo targets recorded. Patient Instructions Encounter Date Encounter Id Patient Instructions Last Modified By Organization Details Last Modified Time 02/07/2023 [id number] complete PFT w/ post bronchodilator spirometry* - No auth needed Not available 01/02/2024 15:47:26 01/12/2024 [id number] complete PFT w/ post bronchodilator spirometry* [id number] Not available 08/13/2024 17:15:39 Reason for Referral None Reported. Results Created Date Observation Date Name Description Value Unit Range Abnormal Flag Note LastModifiedBy Organization Detail LastModifiedTime 04/22/20 22 01/06/2022 XR, chest , 1 view No observ ation record ed. [id number] Not Available 08/25/2022 13:32:14 04/22/20 22 03/27/2022 XR, chest , 1 view No observ ation record ed. [id number] Not Available 08/25/2022 13:32:14 04/22/20 22 01/06/2022 CT, chest , w/ contr ast No observ ation record ed. [id number] Not Available 08/25/2022 13:32:14 04/22/20 22 03/27/2022 CT, chest , w/ contr ast No observ ation record ed. [id number] Not Available 08/25/2022 13:32:14 05/01/20 22 04/30/2022 CT, chest , w/o contr ast No observ ation record ed. [id number] [facility] [address] [place], [address], 08/25/2022 13:32:14 07/28/19 23 07/28/2022 FL, modif ied spike villafana study No observ ation record ed. [id number] [facility] [address] [place], [address], 08/25/2022 13:32:14 07/28/19 23 07/28/2022 CT, chest , w/o contr ast No observ ation record ed. [id number] [facility] Orders [address] [place], [address], 08/25/2022 13:32:14 08/03/19 23 07/28/2022 FL, modif ied spike villafana ow study No observ ation record ed. [id number] [facility] ([facility] Scheduling) [address] [place], [address], 08/25/2022 13:32:14 02/02/20 23 01/31/2023 compl ete PFT w/ post [facility] hodil ator michelle metry * No observ ation record ed. BARCODE [facility] ([facility] Call Scheduling) [address] [place], [address], 02/01/2023 17:29:30 Result Notes None recorded. Problems Name Problem SNOMED Code Status Onset Date Resolution Date Notes Provider Name and Address Organization Details Recorded Time Posterior rhinorrhea 00011865 Active 2022 Not Available [facility] 4 17:07:19 Smoker 60509542 Active 2022 Not Available [facility] 4 17:07:19 Severe persistent asthma 111424161 Active 2022 Not Available [facility] 4 17:07:19 Notes:Medical History: Bipol ar depression Migraine headaches Recurrent acute otitis media Rhinitis with multiple environmental allergies and postnasal drip Eosinophils 50/uL IgE 259 IU/mL Alpha-1 antitryspin PiMM 135 mg% Severe persistent asthma Atrial fibrillation TYRELL Constipation-predominant IBS Iron deficiency Vit D deficiency Lupus since 2011 Lumbar facet arthropathy Lumbar bilateral foraminal stenosis Lumbar fracture Procedure History: C-sections 2015, 2019 MARTHA-BSO 2022 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 Procedures Surgical History Date Name Laterality Status Provider Name and Address Organization Details Recorded Time 11/19/19 23 Hysterectomy completed Irma Mohr MA [place] - [facility] [facility] 02/07/2023 09:43:48 section completed Not Available [facility] 08/25/2022 13:29:35 Imaging Results Imaging Date Name Status LastModified by Organization Details LastModified Time 07/28/2022 FL, modified barium swallow study completed [id number] [facility] Orders [address] [place], [address], 08/25/2022 13:32:14 07/28/2022 CT, chest, w/o contrast completed [id number] [facility] Orders [address] [place], [address], 08/25/2022 13:32:14 07/28/2022 FL, modified barium swallow study completed [id number] [facility] ([facility] Call Scheduling) [address] [place], [address], 08/25/2022 13:32:14 04/30/2022 CT, chest, w/o contrast completed [id number] [facility] Orders [address] [place], [address], 08/25/2022 13:32:14 01/06/2022 XR, chest, 1 view completed [email or web address]. [id number] Information not available 08/25/2022 13:32:14 03/27/2022 XR, chest, 1 view completed MIGRATION. [id number] Information not available 08/25/2022 13:32:14 01/06/2022 CT, chest, w/ contrast completed [id number] Information not available 08/25/2022 13:32:14 03/27/2022 CT, chest, w/ contrast completed [id number] Information not available 08/25/2022 13:32:14 01/31/2023 complete PFT w/ post bronchodilator spirometry* completed [facility] ([facility] Scheduling) [address] [place], [address], 02/01/2023 17:29:30 Procedure Notes None recorded. Medical Equipment None Reported. Allergies Allergen ID Allergen Name Allergen Category Reaction Reaction Severity Criticality Documentation Date Start Date Code Code System Note Provider Name and Address Organization Details Recorded Time 87151 Macrobid medicatio n Not available Not available Not available 08/25/2022 27872 1 RxNorm Not Available [facility] 13:32:12 Medications Name Sig Start Date Stop [...] completed Not Available Not Available Not Available loperamide 2 mg capsule PLEASE SEE ATTACHED FOR DETAILED DIRECTION S active Not Available Not Available No t Available azithromyci n 250 mg tablet TAKE [...] t Available ondansetron HCl 4 mg tablet 4 MG ORALLY EVERY 6-8 HOURS NEEDED FOR NAUSEA AND VOMITING active Not Available Not Available No t Available prednisone 20 mg tablet TAKE 3 [...] Not Available Not Available No t Available dicyclomine 20 mg tablet 20 MG ORALLY THREE TIMES A DAY NEEDED FOR ABDOMINAL PAIN active Not Available Not Available No [...] completed Not Available Not Available Not Available Breztri Aerosphere 160 mcg-9mcg-4. 8mcg/actuat ion HFA aerosol [...] % 72 /min 15 /min 98.6 [degF] 11619.4 1 g 110 mm[Hg] 66 mm[Hg] Not Available [facility] 3 13:30:03 Date Recorded Body mass index (BMI) Heart rate Body height Oxygen saturation Oxygen saturation in Arterial blood by Pulse oximetry Heart rate Respiratory rate Body temperature Body weight Systolic blood pressure Diastolic blood pressure Provider Name and Address Organization Details Last Updated DateTime 3 26 kg/m2 61 /min 165.1 cm 97 % 97 % 61 /min 15 /min 98.2 [degF] 26011.4 1 g 108 mm[Hg] 60 mm[Hg] Not Available [facility] 3 13:30:04 Date Recorded Body height Oxygen saturation Oxygen saturation in Arterial blood by Pulse oximetry Heart rate Body temperature Body weight Systolic blood pressure Diastolic blood pressure Provider Name and Address Organization Details Last Updated DateTime 2 165.1 cm 91 % 91 % 79 /min 98.1 [degF] 93436.2 5 g 120 mm[Hg] 68 mm[Hg] Not Available [facility] 3 13:30:03 Date Recorded Body height Body mass index (BMI) Body weight Body temperature Systolic blood pressure Diastolic blood pressure Provider Name and Address Organization Details Last Updated DateTime 3 165.1 cm 25 kg/m2 17298.8 6 g 98.1 [degF] 110 mm[Hg] 68 mm[Hg] Irma Mohr MA [employer] 3 09:47:14 Date Recorded Heart rate Oxygen saturation Oxygen saturation in Arterial blood by Pulse oximetry Heart rate Respiratory rate Provider Name and Address Organization Details Last Updated DateTime 3 59 /min 99 % 99 % 59 /min 15 /min Ruslan Reid MD [address] [place] [address], [facility] [address], [place], [address], [employer] 3 10:07:55 Date Recorded Body height Body mass index (BMI) Body weight Oxygen saturation Oxygen saturation in Arterial blood by Pulse oximetry Body temperature Heart rate Systolic blood pressure Diastolic blood pressure Provider Name and Address Organization Details Last Updated DateTime 4 165.1 cm 25 kg/m2 52018.8 6 g 98 % 98 % 98.1 [degF] 87 /min 118 mm[Hg] 68 mm[Hg] Fabian Lowe CMA [place] - [facility] 4 10:40:20 Social History Question Answer Notes LastModified by Organization Details LastModified Time Tobacco Smoking Status Former Smoker quit 2 months ago Not Available [facility] 08/25/2022 13:29:33 What Is Your Level Of Alcohol Consumption? None MIGRATION.0301 [id number] Information not available 08/25/2022 What Is Your Level Of Caffeine Consumption? Occasional MIGRATION.0301 [id number] Information not available 08/25/2022 In The 14 Days Before Symptom Onset, Have You Had Close Contact With A Laboratory-confi rmed COVID-19 While That Case Was Ill? No MIGRATION.0301 [id number] Information not available 08/25/2022 In The 14 Days Before Symptom Onset, Have You Had Close Contact With A Person Who Is Under Investigation For COVID-19 While That Person Was Ill? No MIGRATION.0301 [id number] Information not available 08/25/2022 What Type Of Diet Are You Following? REGULAR MIGRATION.0301 [id number] Information not available 08/25/2022 Do You Have An Electrostatic Air Filter? 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 No MIGRATION.0301 [id number] Information not available 08/25/2022 Do You Have A Humidifier? Yes MIGRATION.0301 120004 Information not available 08/25/2022 Where Do You Live? [facility] MIGRATION.0301 [id number] Information not available 08/25/2022 Do You Have Moisture Problems In Your Home? No MIGRATION.0301 375113 Information not available 08/25/2022 What Was The Date Of Your Most Recent Tobacco Screening? 02/07/2023 Information not available 02/07/2023 Do You Have Any Pets? Yes MIGRATION.0301 590352 Information not available 08/25/2022 Do You Have Smoke And Carbon Monoxide Detectors In Your Home? Yes MIGRATION.0301 824855 Information not available 08/25/2022 At What Age Did You Start Smoking Tobacco? 13 MIGRATION.0301 143665 Information not available 08/25/2022 Are You Passively Exposed To Smoke? No MIGRATION.0301 179530 Information not available 08/25/2022 How Much Tobacco Do You Smoke? No MIGRATION.0301 413676 Information not available 08/25/2022 Do You Feel Stressed (tense, Restless, Nervous, Or Anxious, Or Unable To Sleep At Night)? NM4587-5 MIGRATION.0301 [id number] Information not available 08/25/2022 Do You Use Any Illicit Or Recreational Drugs? Yes Marijuana MIGRATION.0301 198493 Information not available 08/25/2022 Do You Use Sunscreen Routinely? No MIGRATION.0301 [id number] Information not available 08/25/2022 How Many Years Have You Smoked Tobacco? 16 MIGRATION.0301 857997 Information not available 08/25/2022 Have You Recently Traveled Abroad? No MIGRATION.0301 696204 Information not available 08/25/2022 Do You Have Any Dietary Restrictions? No MIGRATION.0301 499696 Information not available 08/25/2022 Sex: Female Functional Status Question Answer Note LastModified by Organizat ion Details LastModified Time What is your exercise level? Heavy MIGRATION.[id number] Information not available 08/25/2022 Mental Status None recorded. Family History Relationship Description Onset Age of this Age Resolved Age Notes LastModified by Organization Details LastModified Time Father Family history of malignant neoplasm [id number].[id number] Not available 08/25/2022 13:29:36 Father Blood coagulation disorder MIGRATION.658 [id number] Not available 08/25/2022 13:29:36 Father Diabetes mellitus MIGRATION.084 [id number] Not available 08/25/2022 13:29:36 Father Chronic obstructive pulmonary disease MIGRATION.001 [id number] Not available 08/25/2022 13:29:36 Brother Asthma MIGRATION.936 [id number] Not available 08/25/2022 13:29:36 Sister Asthma MIGRATION.603 [id number] Not available 08/25/2022 13:29:36 Paternal Grandmother Asthma MIGRATION.866 [id number] Not available 08/25/2022 13:29:36 Maternal Grandmother Asthma MIGRATION.012 [id number] Not available 08/25/2022 13:29:36 Medical History Condition Response CHEST XRAY Y BLINDNESS N KIDNEY STONES N MRSA N CARPAL TUNNEL SYNDROME N LUNG DISEASE/DISORDER Y HISTORY OF DRUG ABUSE N COPD N RADIATION / CHEMOTHERAPY N SPORTS INJURY N ANKLE PAIN N BLOOD DISEASES Y SCHIZOPHRENIA N SHINGLES N SHOULDER PAIN N DEPRESSION (INCLUDING POST ) N BOWEL PROBLEMS N STROKE/TIA N CHEST CT Y KNEE PAIN N ULCERS N BENIGN PROSTATIC HYPERPLASIA N OBESITY N [...] HAVE YOU BEEN HOSPITALIZED OR SEEN IN [facility] IN THE PAST YEAR ? N [...] mcg/0.3 mL dose 04/20/2021 completed Not Available [facility] 17:07:19 COVID-19, mRNA, LNP-S, PF, 30 mcg/0.3 mL dose 03/30/2021 completed Not Available [facility] 17:07:19 Past Encounters Encounter ID Performer Location Encounter Start Date Encounter Closed Date Diagnosis/Indication Diagnosis SNOMED-CT Code Diagnosis ICD10 Code Diagnosis Note [id number] [facility] [address] [place] [address] 04/09/2021 00:00:00 04/09/2021 09:36:09 [id number] [facility] [address] [place] [address] 04/23/2021 00:00:00 04/23/2021 11:07:07 [id number] [facility] [address] [address] 10/08/2021 00:00:00 10/08/2021 15:19:33 [id number] [facility] [address] [address] 10/22/2021 00:00:00 10/22/2021 15:34:32 [id number] [facility] [address] [address] 04/22/2022 00:00:00 04/22/2022 13:17:16 [id number] [facility] [address] [address] 07/15/2022 00:00:00 07/15/2022 16:05:23 [id number] [facility] [address] [address] 08/05/2022 00:00:00 08/05/2022 15:35:19 [id number] Ruslan Reid MD [facility] [address] [address] 02/07/2023 09:27:31 02/08/2023 10:11:10 Posterior rhinorrhea 14947472 R09.82 Severe per sistent asthma 396644490 J45.50 [id number] Ruslan Reid MD [facility] [address] [address] 01/12/2024 10:29:39 01/13/2024 08:21:56 Severe persistent asthma 865652665 J45.50 Posterior rhinorrhea 758 69650 R09.82 [id number] Karie Juares NP [address] [address] 07/05/2024 14:05:19 07/05/2024 17:28:27 [id number] Karie Juares NP [facility] [address] [place] [address] 08/02/2024 14:32:51 08/02/2024 15:49:42 Health Concerns Section Related Observation LastModified by Organization Detai ls LastModified Time None Recorded Concern Status LastModified by Organization Details LastModified Time None Recorded Advance Directives Directive None Recorded Payers Encounter Date Sequence Insurance Name Policy Number Policy Barrett Covered Member ID Barrett Member ID Guarantor Name 02/07/2023 1 [place] [id number] 1 Yu D Daniel [id number] [place] 02/07/2023 2 [place] [facility] [place] [facility] [place] A[place] D Daniel [id number] Yu D Daniel 01/12/2024 1 [place] [id number] [place] D Daniel [id number] Yu D Daniel 01/12/2024 2 [place] [facility] [place] [facility] [place] A[place] D Daniel [id number] [place] D Daniel Notes Date Note Type Note [...] 20 lbs objectsAlleviating factors: restModified [employer] [place] (mMRC) Dyspnea Scale - Grade 2Grade 0 I only get breathless with strenuous exercise .Grade 1 I get short of breath when hurrying on the level or walking up a slight hill .Grade 2 I walk slower than people of the same age on the level because of breathlessness or have to stop for breath when walking at my own pace on the level .Grade 3 I stop for breath after walking about 100 yards or after a few minutes on the level .Grade 4 I am too breathless to leave the house or I am breathless when dressing .Treatment history:Patient's personal best peak flow remains at 380 L/min.Generic albuterol HFA 2 puffs every 4 hrs as needed since 2004Advair 500/50 2 puffs BID 2006-2008Symbicort 80/4.5 mcg 2 puffs 4 times a day since ymbicort 160/4.5 mcg 2 puffs 4 times a day since 2Bactrim 800/160 mg BID 10/25/21 - 11/03/21Levofloxacin 500 [...] moderate chance of dozing. Ruslan Reid MD [address] [place] [address], [address], [address], [facility] [employer] 08/17/2023 14:56:20 01/12/2024 text/html Primary care/Ref erring provider: Mervin Kevin, MDPatient is here to go over her asthma management.Initial development of shortness of breath: 2005Duration of shortness of breath: 19 yearsCondition of shortness of breath: stableTiming of shortness of breath: morning and bedtimeFrequency: up to 10 times a dayLimits activities: yesAggravating factors: walking, lifting 20 lbs objectsAlleviating factors: restModified [employer] [place] (mMRC) Dyspnea Scale - Grade 2Grade 0 I only get breathless with strenuous exercise .Grade 1 I get short of breath when hurrying on the level or walking up a slight hill .Grade 2 I walk slower than people of the same age on the level because of breathlessness or have to stop for breath when walking at my own pace on the level .Grade 3 I stop for breath after walking about 100 yards or after a few minutes on the level .Grade 4 I am too breathless to leave the house or I am breathless when dressing .Treatment history:Patient's personal best peak flow remains at 380 L/min.Generic albuterol HFA 2 puffs every 4 hrs as needed since 2004Advair 500/50 1 inhalation BID 2006-2008Symbicort 80/4.5 mcg 2 puffs 2 times a day 02/2021 - ymbicort 160/4.5 mcg 2 puffs 2 times a day 08/2021 - 07/2023Wixela Inhub 250/50 mcg 1 inhalation BID since actrim 800/160 mg BID 10/25/21 - [...] moderate chance of dozing. Ruslan Reid MD [address] [place] [address], [place], [address], [facility] 01/12/2024 11:03:36 OBGyn Episode No OBEpisode recorded.
--- OUTSIDE RECORDS SUMMARY | 2024-09-23 00:37 | XMS_ITS | Clinical Summary ---
Author Organization [facility] Address [address] [place] [address] Care Team Providers Care Diversified Crops Farmer Name Role Phone Mervin Kevin MD Primary Care Provider [phone] Source Comments [facility],non-owned Affiliates and Associated Physician Practices is amultiple site organization consisting of ambulatory clinics and hospital sitesin [place], [place], [place] and [place]. This disclosure is being madepursuant to the Care Everywhere program and may not contain all information available regarding this patient. Last updated 18.[facility] [employer] Allergies Active Allergy Reactions Criticality Noted Date [...] Sanchez was screened for depression using the Batson Depression Scale (EPDS) at her [facility] initial evaluation on 03/06/2018. Her initial score [...] symptoms. Recommend 3rd trimester neonatology consult at [facility] due to psychiatric medications, if continued [...] from the original note were not included. [facility] PATIENT--PLEASE CALL [phone] (ex 2) IF TRIAGED OR ADMITTED Care Provider: Dr. Erasmo Wood [facility] Care Omar consultants involved: RN-Rosana/Jayce; MFM-Vitor; Cleft Team-Kamila Mojica; Cardiology-Vitor Diagnosis: Cleft Lip & Palate follow up: per Cleft Team consult 9.10: Family will call to schedule a visit with the cleft palate team after the baby is born. Storage Receipt Poster: undecided as of 04.03 Planned surveillance: Repeat ultrasound at [facility] at 32w & 36w; released from [facility] on 04.03.2018 Delivery location, mode, and GA: [facility], desires vaginal delivery Genetics note: genetic [...] laboratory and call the genetic counselors at [phone] or [phone] to notify that specimen is ready for sendout. Order can be placed by genetic counselor in baby's chart at that time. Please request Genetics consult postnatally if clinically indicated by calling the Genetics office at [phone] prior to ordering genetic studies. Security Patrol Officer Concerns: 03/06/18- Patient with history of bipolar [...] 52 02/10/2024 2:47 PM CDT Temperature 36.3 C (97.3 F) 02/10/2024 2:14 PM CDT Respiratory Rate 16 02/10/2024 2:47 PM CDT Oxygen Saturation 100% 02/10/2024 2:47 PM CDT Inhaled Oxygen Concentration 21% 06/30/2018 8 :39 AM CLOTH DYER Weight 74.8 kg (165 lb) 02/22/2024 10:16 [...] 10/09/2021, 04/20/2021, 03/30/2021 INFLUENZA VACCINE (#1) 2024 9, 04/27/2018 DTAP/TDAP/TD VACCINES (2 - T d or Tdap) 04/06/2028 04/06/2018 ZOSTER VACCINE (1 of 2) 2040 HEPATITIS C SCREENING Completed 11/24/2018 HIV SCREENING Completed 11/24/2018, 04/06/2018 HIB VACCINE Aged Out No longer eligi ble based on patient's age to complete this topic HPV VACCINE Aged Out No longer eligi ble based on patient's age to complete this topic MENINGOCOCCAL (Group B) VACCINE SHARED DECISION-MAKING Aged Out No longer eligible based on patient's age to complete this topic MENINGOCOCCAL GROUPS A/C/Y/W VACCINE Aged Out No longer eligible b ased on patient's age to complete this topic Goals Goal Patient Goal Type Associated Problems Recent Progress Patient-Stated? Author Medication Management General On track( 019 9:25 AM CDT) Perri Thapa RN Note: Expected end date: ongoing Interventions: Take all medications as prescribed Let your doctor know right away about any changes in your medications Make sure to request a refill of your medication at least one week prior to your last dose Mobility General Deanne Arroyo, MALKA Note: Expected end date: 06/26/2021 The goal [...] Reactive Non Reactive 11/24/2018 3:32 PM CDT [facility] Blood BLOOD SPECIMEN / Unknown Venipuncture / Unknown 11/24/2018 2:32 PM CDT 11/24/2018 2:35 PM CDT Narrative [facility] - 11/24/2018 3:32 PM CDT No Laboratory evidence of HIV infection. Alondra Saxena DO LAB - CHEMISTRY ORDERABLES Performing Organization Address City/State/[facility] Co de Phone Number [facility] [address] [place], [place] [id number] * PAP LB RFLX HPV ASCU (11/24/2018 2:32 PM CDT) Diagnosis Comment 11/29/2018 11:13 AM CDT [facility] ([facility]) Comment:NEGATIVE FOR INTRAEP ITHELIAL LESION OR MALIGNANCY. Specimen Adequacy Comment 019 11:13 AM CDT [facility] ([facility]) Comment: Satisfactory for evaluation. Endocervical and/or squamous metaplastic cells (endocervical component) are present. Performed by Comment 11/29/2018 11:13 AM CDT [facility] ([facility]) Comment:Aamir Miller chnologist (ASCP) Comment . 11/29/2018 11:13 AM CDT [facility] ([facility]) Note Comment 11/29/2018 11:13 AM CDT [facility] ([facility]) Comment: The Pap smear is a screening test designed to aid in the detection of premalignant and malignant conditions of the uterine cervix. It is not a diagnostic procedure and should not be used as the sole means of detecting cervical cancer. Both false-positive and false-negative reports do occur. Note Comment 11/29/2018 11:13 AM CDT [facility] ([facility]) Comment: The HPV DNA reflex criteria were not met with this specimen result therefore, no HPV testing was performed. Pathology/Cytolo gy ENTIRE ENDOCERVIX / Unknown Collection / Unknown 11/24/2018 2:32 PM CDT 11/25/2018 7:[address] [facility] ([facility]) - 11/29/2018 11:13 AM CDT Performed at: [address] [place] [id number] Manufacturing Accountant: Fe Cruz MD, Phone: [phone] Specimen Comment: Source.............Cervix;Endocervix Specimen Comment: No. of containers..01 ThinPrep Vial Alondra Saxena DO LAB - PATHOLOGY /CYTOLOGY ORDERABLES [facility] ([facility]) [address] [place] [address] * HEPATITIS C ANTIBODY (11/24/2018 2:32 PM CDT) HCV Antibody Screen Non Reactive Non Reactive 11/24/2018 4:08 PM CDT [facility] HCV S/C Ratio 0.13 0.00 - 0.79 11/24/2018 4:08 PM CDT [facility] Comment: Pquons-zq-iyfgzd ratio (S/CO) <0.80: Non Reactive Blood BLOOD SPECIMEN / Unknown Venipuncture / Unknown 11/24/2018 2:32 PM CDT 11/24/2018 2:36 PM CDT Narrative [facility] - 11/24/2018 4:08 PM CDT Non Reactive - Antibodies to Hepatitis C virus (HCV) were not detected, result does not exclude early acute HCV infection. Alondra Saxena DO LAB - CHEMISTRY ORDERABLES [facility] [address] [place] [address] from Last 3 Months or Most Recently Relevant to Health Maintenance Advance Directives * Full Code (Latest Code Status on File) Date Activated Date Inactivated Comments 06/28/2018 1:00 PM 06/30/2018 1:33 PM Care Teams Diversified Crops Farmer Relationship Specialty Start Date End Date Mervin Kevin MD [address] [place] [address] PCP - General Family Medicine 12/29/17
--- OUTSIDE RECORDS SUMMARY | 2024-09-23 00:37 | XMS_ITS | Clinical Summary ---
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 Gender Identity Not on file Sexual Orientation Not on file Obstetrics History Last Filed Vital Signs Vital Sign Reading Time Taken Comments Blood Pressure 106/57 03/18/2021 12:56 PM CDT Pulse 82 03/18/2021 12:56 PM CDT Temperature 36.6 C (97.9 F) 03/18/2021 11:40 AM CDT Respiratory Rate 16 03/18/2021 11:40 AM CDT Oxygen Saturation 97% 03/18/2021 12:56 PM CDT Inhaled Oxygen Concentration - - Weight 64.1 kg (141 lb 5 oz) 03/18/2021 11:40 AM CDT Height 170.2 cm (5' 7 ) 03/18/2021 11:40 AM CDT Body Mass Index 22.13 03/18/2021 11:40 AM CDT Plan of Treatment Not on file Care Teams Binder Caser Relationship Specialty Start Date End Date Mervin Kevin MD PCP - General Emergency Medicine 02/22/22
--- OUTSIDE RECORDS SUMMARY | 2024-09-23 00:37 | XMS_ITS | Referral Summary ---
Author Organization [facility] Address [address] [place] [address] Care Team Providers Care Top Taper Machine Name Role Phone Mervin Kevin MD Primary Care Provider [phone] Allergies Active Allergy Reactions Criticality Noted Date Comments Nitrofurantoin Anaphylaxis High 12/29/2017 Social History Tobacco Use Types Packs/Day Years Used Date Smoking Tobacco: Every Day Cigarettes Smokeless Tobacco: Never Personal Safety Answer Date Recorded Getting School Help Needed Not on file 08/21 Comments No Sex and Gender Information Value Date Recorded Sex Assigned at Not on file Legal Sex Female 4:55 AM VP INTEGRATION Gender Identity Not on file Sexual Orientation [...] of Treatment Not on file Care Teams Top Taper Machine Relationship Specialty Start Date End Date Mervin Kevin MD PCP - General Emergency Medicine 02/22/22
--- OUTSIDE RECORDS SUMMARY | 2024-09-23 00:37 | XMS_ITS | Clinical Summary ---
Author Organization [facility] Address [address] [place] [address] Care Team Providers Care Hip Hop Performers Name Role Phone Mervin Kevin MD Primary Care Provider [phone] Social History Tobacco Use Types Packs/Day Years Used Date Smoking Tobacco: Never Assessed Comments Unknown Sex and Gender Information Value Date Recorded Sex Assigned at Not on file Legal Sex Female 10:18 AM BRICK STACKER Gender Identity Not on file Sexual Orientation Not on file Last Filed Vital Signs Vital Sign Reading Time Taken Comments Blood Pressure 111/67 07/29/2017 9:58 AM BRICK STACKER Pulse 72 07/29/2017 9:58 AM BRICK STACKER Temperature - - Respiratory Rate - - Oxygen Saturation - - Inhaled Oxygen Concentration - - Weight 68 kg (150 lb) 07/29/2017 9:58 AM BRICK STACKER Height 170.2 cm (5' 7 ) 07/29/2017 9:58 AM BRICK STACKER Body Mass Index 23.49 07/29/2017 9:58 AM BRICK STACKER Plan of Treatment Health Maintenance Due Date [...] Vaccine ( - 2023-2 5 season) 2024 HPV Vaccines Aged Out No longer eligi ble based on patient's age to complete this topic Meningococcal B Vaccine Aged Out No l onger eligible based on patient's age to complete [...] patient's age to complete this topic Insurance [employer] Care Teams Hip Hop Performers Relationship Specialty Start Date End Date Mervin Kevin MD [address] [address] PCP - General FAMILY PRACTICE 06/30/17
--- OUTSIDE RECORDS SUMMARY | 2024-09-23 00:38 | XMS_ITS | Clinical Summary ---
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 Gender Identity Not on file Sexual Orientation Not on file Last Filed Vital Signs Vital Sign Reading Time Taken Comments Blood Pressure 101/56 10/06/2022 12:52 PM CDT Pulse 72 10/06/2022 12:52 PM CDT Temperature 36.6 C (97.9 F) 10/06/2022 12:52 PM CDT Respiratory Rate 10 10/06/2022 12:52 PM CDT Oxygen Saturation 100% 10/06/2022 12:52 PM CDT Inhaled Oxygen Concentration - - Weight 67.4 kg (148 lb 9.6 oz) 10/06/2022 12:52 PM CDT Height 170.2 cm (5' 7 ) 10/01/2022 10:17 AM CDT Body Mass Index 23.27 10/01/2022 10:17 AM CDT Plan of Treatment Health Maintenance Due Date Last Done Comments PNEUMOCOCCAL VACCINE 0-49 YE ARS (1 of 2 - PCV) 1996 HEPATITIS B VACCINES (1 of 3 - 19+ 3-dose series) 2009 HPV/Cotest (21-29) 11/23/2011 CERVICAL CANCER SCREENING 2020 HPV/Cotest (30-65) 2020 PAP SMEAR 2020 INFLUENZA VACCINE (#1) 2024 04/27/2018 DTAP/TDAP/TD VACCINES (2 - T d or Tdap) 04/06/2028 04/06/2018 HPV VACCINES Aged Out No longer eligi ble based on patient's age to complete this topic [place] [address] [place] [address] BLUE ACCESS CHOICE MEDICAID [place]
--- OUTSIDE RECORDS SUMMARY | 2024-09-23 00:38 | XMS_ITS | CONTINUITY OF CARE DOCUMENT ---
Author Name qianlaurel qianlaurel Address Unknown Organization [facility] Address [address] [place] [address] Phone [phone] Care Team Providers Care Ham Sawyer Name Role Phone Carisa Doe MD Unavailable ANA LAURA SANTIAGO MD Unavailable [phone] ANA LAURA SANTIAGO MD Unavailable [phone] PROBLEMS Condition Status Date Provider Notes Cardiology examination active Carisa murray MD Asthma active Carisa Doe MD (Hist ory of) Palpitations active Carisa Doe MD Syncope and collapse active Carisa gaffney MD Chest pain-type to be determined active Usama Doe MD Lupus active Carisa Doe MD ENCOUNTERS Date Type Provider Location Encounter Diag nosis - In-person encounter Office Visit Carisa Doe MD [place] [facility] - In-person encounter Office Visit Carisa Doe MD [place] [facility] Chest pain-type to be determinedLupus - In-person encounter Office Visit Carisa Doe MD [place] [facility] - In-person encounter Office Visit Carisa Doe MD [place] [facility] - In-person encounter Office Visit [place] [facility] - In-person encounter Office Visit Carisa Doe MD [place] [facility] - In-person encounter Office Visit Carisa Doe MD [place] [facility] - In-person encounter Office Visit Carisa Doe MD [place] [facility] - In-person encounter Office Visit Carisa Doe MD [place] [facility] Cardiology examinationAsthmaPalpitationsSyncope and collapse VITAL SIGNS Date Observation Value Provider Body Mass Index (Ratio) 24.12 kg/m2 Richard Doe MD blood pressure, diastolic 67 mm[Hg] Li [employer]ic blood pressure, systolic 96 mm[Hg] Janice [employer]Logic blood pressure, diastolic 67 mm[Hg] Hannah yla [facility] blood pressure, systolic 96 mm[Hg] Suzy la [facility] blood pressure, cuff size regular Hannah ylyeimy [facility] oxygen saturation, oximetry 98 % Shannon [facility] pulse rate 74 /min [facility] weight E&M 154 [lb_av] [facility] height E&M 67 [in_i] [facility] Body Mass Index (Ratio) 23.96 kg/m2 [facility] blood pressure, diastolic -1 mm[Hg] Li nkLogic [...] Mass Index (Ratio) 24.43 kg/m2 Ambrocio gao Adonay blood pressure, cuff size regular Jayden flowers [...] Kaitlin petersen weight E&M 152.4 [lb_av] Kaitlinmanav Vieira height E&M 67 [in_i] Kaitlin Vieira Body [...] Jennifer ellis currently smokes every day. Carisa oDe MD social history reviewed E&M revi ewed [...] Policy type / Coverage type Nando red constitution party ID [facility] [id number] [facility] Medicaid 0 [id number] ADVANCE DIRECTIVES Name Date DISCUSSED - NO DECISION MADE TREATMENT PLAN Date Name Performer [id number],C, c heck echo and exercise stress get [...] for exercise-induced myocardial ischemia Carisa Doe MD [id number],C, H er updated medication list for this problem includes: Symbicort 160-4.5 Mcg/actuation Hfa Aerosol Inhaler (Budesonide-formoterol) Albuterol Sulfate 90 Mcg/actuation Hfa Aerosol Inhaler (Albuterol sulfate) Pulmonary Functions Reviewed: O 2 sat: 98 (12/31/2022) Carisa Doe MD [id number],C, t louie monitor echo and thyroid labls [...] No significant valvular abnormalities. Carisa Doe MD [id number],chema Sanchezk tele monitor and thyroid labs January [...] well on toprol xl 100 daily at [facility] with no changes palanned Carisa Doe MD [id number],chema Sanchez echo and exercise stress get tele monitor Carisa Doe MD [id number],C, O n albuterol and symbicort only using PRN Carisa Doe MD [id number],C, t louie monitor echo and thyroid labls [...] No significant valvular abnormalities. Carisa Doe MD [id number],Cchemak tele monitor and thyroid labs January 08, [...] NOT TAKING CAFFEINATED PRODUCTS. Carisa Doe MD [id number],Cchema heck tele monitor and thyroid labs January [...] Check BPs at home. Carisa Doe MD [id number],C, t louie monitor echo and thyroid labls [...] No significant valvular abnormalities. Carisa Doe MD [id number],S, t louie monitor echo and thyroid labls [...] No significant valvular abnormalities. Carisa Doe MD [id number],Cchema heck tele monitor and thyroid labs January 08, 2022 T elemonitor from 10/2021 showed episode of sinus tachy at 144bpm. We will put her on Toprol XL 25mg. Repeat monitor later this summerApril 09, 2022 T elemonitor shows up PVC/PAC, she has noted improvement with Toprol XL 25mg. Will increase to 25 BID. Will change to 50mg once a day if tolerated. Carisa Deo MD [id number],C, c heck tele monitor and thyroid labs January 08, 2022 T elemonitor from 10/2021 showed episode of sinus tachy at 144bpm. We will put her on Toprol XL 25mg. Repeat monitor later this summer Carisa Doe MD [id number],S,On albuterol and symbicort. Carisa Doe MD [id number],C,tele monitor echo and thyroid labls Carisa Doe MD [id number],C,c heck echo and exercise stress get tele monitor Carisa Doe MD [id number],S,check tele mo nitor and thyroid labs Carisa [...] well on toprol xl 100 daily at [facility] with no changes palanned December 16, [...] well on toprol xl 100 daily at [facility] with no changes palanned December 16, [...] well on toprol xl 100 daily at [facility] with no changes palanned December 16, [...] well on toprol xl 100 daily at [facility] with no changes palanned Carisa Doe [...] patient monitoring) Monitor - Telemetry (Mobile Cardiac) 81007 MOD 30-39min HISTORY OF PROCEDURES Procedure Date Procedure Name Provider Procedure Notes S tatus Complex e/m visit add on Carisa Doe MD completed EKG Carisa Doe MD compl eted Complex e/m visit add on Carsia Doe MD completed EKG Carisa Doe MD compl eted Complex e/m visit add on Carisa Doe MD completed EKG Carisa Doe MD compl eted EKG Carisa Doe MD compl eted EKG Carisa Doe MD compl eted EKG Carisa Doe MD compl eted EKG Carisa Doe MD compl eted EKG Carisa Doe MD compl eted
--- OUTSIDE RECORDS SUMMARY | 2024-09-23 05:12 | XMS_ITS | CONTINUITY OF CARE DOCUMENT ---
Author Name qianlaurel qianlaurel Address Unknown Organization [facility] Address [address] [place] [address] Phone [phone] Care Team Providers Care Production Tool Engineer Name Role Phone Carisa Doe MD Unavailable [phone] ANA LAURA SANTIAGO MD Unavailable [phone] ANA LAURA SANTIAGO MD Unavailable [phone] PROBLEMS Condition Status Date Provider Notes Cardiology examination active Carisa murray MD Asthma active Carisa Doe MD (Hist ory of) Palpitations active Carisa Doe MD Syncope and collapse active Carisa gaffney MD Chest pain-type to be determined active Usama Doe MD Lupus active Carisa Doe MD ENCOUNTERS Date Type Provider Location Encounter Diag nosis - In-person encounter Office Visit Carisa Doe MD [place] [facility] - In-person encounter Office Visit Carisa Doe MD [place] [facility] Chest pain-type to be determinedLupus - In-person encounter Office Visit Carisa Doe MD [place] [facility] - In-person encounter Office Visit Carisa Doe MD [place] [facility] - In-person encounter Office Visit [place] [facility] - In-person encounter Office Visit Carisa Doe MD [place] [facility] - In-person encounter Office Visit Carisa Doe MD [place] [facility] - In-person encounter Office Visit Carisa Doe MD [place] [facility] - In-person encounter Office Visit Carisa Doe MD [place] [facility] Cardiology examinationAsthmaPalpitationsSyncope and collapse VITAL SIGNS Date Observation Value Provider Body Mass Index (Ratio) 24.12 kg/m2 Richard Doe MD blood pressure, diastolic 67 mm[Hg] Li nkLogic blood pressure, systolic 96 mm[Hg] Janice kLogic blood pressure, diastolic 67 mm[Hg] Hannah yla [facility] blood pressure, systolic 96 mm[Hg] Suzy la [facility] blood pressure, cuff size regular Hannah ylyeimy [facility] oxygen saturation, oximetry 98 % Shannon [facility] pulse rate 74 /min Shannon [facility] weight E&M 154 [lb_av] Shannon [facility] height E&M 67 [in_i] [facility] Body Mass Index (Ratio) 23.96 kg/m2 [facility] blood pressure, diastolic -1 mm[Hg] [...] status Current every day smoker R luz Brarett social history E&M S moking History: Jennifer [...] Policy type / Coverage type Nando red republican ID [facility] [id number] [facility] Medicaid 0 [id number] ADVANCE DIRECTIVES Name Date DISCUSSED - NO DECISION MADE TREATMENT PLAN Date Name Performer [id number],C, c heck echo and exercise stress get [...] for exercise-induced myocardial ischemia Carisa Doe MD [id number],C, H er updated medication list for this problem includes: Symbicort 160-4.5 Mcg/actuation Hfa Aerosol Inhaler (Budesonide-formoterol) Albuterol Sulfate 90 Mcg/actuation Hfa Aerosol Inhaler (Albuterol sulfate) Pulmonary Functions Reviewed: O 2 sat: 98 (12/31/2022) Carisa Doe MD [id number],C, t louie monitor echo and thyroid labls [...] No significant valvular abnormalities. Carisa Doe MD [id number],chema Sanchezk tele monitor and thyroid labs January [...] well on toprol xl 100 daily at [facility] with no changes palanned Carisa Doe MD [id number],chema Sanchez echo and exercise stress get tele monitor Carisa Doe MD [id number],C, O n albuterol and symbicort only using PRN Carisa Doe MD [id number],C, t louie monitor echo and thyroid labls [...] No significant valvular abnormalities. Carisa Doe MD [id number],Cchemak tele monitor and thyroid labs January 08, [...] NOT TAKING CAFFEINATED PRODUCTS. Carisa Doe MD [id number],Cchema heck tele monitor and thyroid labs January [...] Check BPs at home. Carisa Doe MD [id number],C, t louie monitor echo and thyroid labls [...] No significant valvular abnormalities. Carisa Doe MD [id number],S, t louie monitor echo and thyroid labls [...] No significant valvular abnormalities. Carisa Doe MD [id number],Cchema heck tele monitor and thyroid labs January [...] a day if tolerated. Carisa Doe MD [id number],C, c heck tele monitor and thyroid labs January 08, 2022 T elemonitor from 10/2021 showed episode of sinus tachy at 144bpm. We will put her on Toprol XL 25mg. Repeat monitor later this summer Carisa Doe MD [id number],S,On albuterol and symbicort. Carisa Doe MD [id number],C,tele monitor echo and thyroid labls Carisa Doe MD [id number],C,c heck echo and exercise stress get tele monitor Carisa Doe MD [id number],S,check tele mo nitor and thyroid labs Carisa [...] well on toprol xl 100 daily at [facility] with no changes palanned December 16, [...] well on toprol xl 100 daily at [facility] with no changes palanned December 16, [...] well on toprol xl 100 daily at [facility] with no changes palanned December 16, [...] well on toprol xl 100 daily at [facility] with no changes palanned Carisa Doe [...] patient monitoring) Monitor - Telemetry (Mobile Cardiac) 85127 MOD 30-39min HISTORY OF PROCEDURES Procedure Date Procedure Name Provider Procedure Notes S tatus Complex e/m visit add on Carisa Doe MD completed EKG Carisa Doe MD compl eted Complex e/m visit add on Carisa Doe MD completed EKG Carisa Doe MD compl eted Complex e/m visit add on Carisa Deo MD completed EKG Carisa Doe MD compl eted EKG Carisa Doe MD compl eted EKG Carisa Doe MD compl eted EKG Carisa Doe MD compl eted EKG Carisa Doe MD compl eted EKG Carisa Doe MD compl eted
--- OUTSIDE RECORDS SUMMARY | 2024-09-23 05:12 | XMS_ITS | Referral Summary ---
Author Organization [facility] Address [address] [place] [address] Care Team Providers Care Ampoule Sealer Name Role Phone Mervin Kevin MD Primary Care Provider [phone] Allergies Active Allergy Reactions Criticality Noted Date Comments Nitrofurantoin Anaphylaxis High 12/29/2017 Social History Tobacco Use Types Packs/Day Years Used Date Smoking Tobacco: Every Day Cigarettes Smokeless Tobacco: Never Personal Safety Answer Date Recorded Getting School Help Needed Not on file 08/21 Comments No Sex and Gender Information Value Date Recorded Sex Assigned at Not on file 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
--- OUTSIDE RECORDS SUMMARY | 2024-09-23 05:12 | XMS_ITS | Clinical Summary ---
Author Organization [facility] Address [address] [place] [address] Care Team Providers Care Outside Residential Sales Professional Name Role Phone Mervin Kevin MD Primary Care Provider [phone] Source Comments [facility],non-owned Affiliates and Associated Physician Practices is amultiple site organization consisting of ambulatory clinics and hospital sitesin [place], [place], [place] and [place]. This disclosure is being madepursuant to the Care Everywhere program and may not contain all information available regarding this patient. Last updated 18.[facility] Allergies Active Allergy Reactions Criticality Noted Date [...] Sanchez was screened for depression using the [place] Depression Scale (EPDS) at her [facility] initial evaluation on 03/06/2018. Her initial score [...] symptoms. Recommend 3rd trimester neonatology consult at [facility] due to psychiatric medications, if [...] from the original note were not included. [facility] PATIENT--PLEASE CALL [phone] (ex 2) IF TRIAGED OR ADMITTED Care Provider: Dr. Erasmo Wood MILAGRO [facility] Care [place] consultants involved: RN-Rosana/Jayce; MFM-Vitor; Cleft Team-Kamila Mojica; Cardiology-Vitor Diagnosis: Cleft Lip & Palate follow up: per Cleft Team consult 9.10: Family will call to schedule a visit with the cleft palate team after the baby is born. Bar Host: undecided as of 04.03 Planned surveillance: Repeat ultrasound at [facility] at 32w & 36w; released from [facility] on 04.03.2018 Delivery location, mode, and GA: [facility], desires vaginal delivery Genetics note: genetic diagnostic [...] laboratory and call the genetic counselors at [phone] or [phone] to notify that specimen is ready for sendout. Order can be placed by genetic counselor in baby's chart at that time. Please request Genetics consult postnatally if clinically indicated by calling the Genetics office at [phone] prior to ordering genetic studies. 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 Alondra Saxena DO LAB - CHEMISTRY ORDERABLES Performing Organization Address City/State/[facility] Co de Phone Number [facility] [address] [place], [place] [id number] * PAP LB RFLX HPV ASCU (11/24/2018 2:32 PM CDT) Diagnosis Comment 11/29/2018 11:13 AM CDT [facility] ([facility]) Comment:NEGATIVE FOR INTRAEP ITHELIAL LESION OR MALIGNANCY. Specimen Adequacy Comment 019 11:13 AM CDT [facility] ([facility]) Comment: Satisfactory for evaluation. Endocervical and/or squamous metaplastic cells (endocervical component) are present. Performed by Comment 11/29/2018 11:13 AM CDT [facility] ([facility]) Comment:Aamir Miller chnologist (ASCP) Comment . 11/29/2018 11:13 AM CDT [facility] ([facility]) Note Comment 11/29/2018 11:13 AM CDT [facility] ([facility]) Comment: The Pap smear is a screening test designed to aid in the detection of premalignant and malignant conditions of the uterine cervix. It is not a diagnostic procedure and should not be used as the sole means of detecting cervical cancer. Both false-positive and false-negative reports do occur. Note Comment 11/29/2018 11:13 AM CDT [facility] ([facility]) Comment: The HPV DNA reflex criteria were not met with this specimen result therefore, no HPV testing was performed. Pathology/Cytolo gy ENTIRE ENDOCERVIX / Unknown Collection / Unknown 11/24/2018 2:32 PM CDT 11/25/2018 7:38 AM CDT [facility] ([facility]) - 11/29/2018 11:13 AM CDT Performed at: [address] [place] [id number] Filteration Operator: Fe Cruz MD, Phone: [phone] Specimen Comment: Source.............Cervix;Endocervix Specimen Comment: No. of containers..01 ThinPrep Vial Alondra Saxena DO LAB - PATHOLOGY /CYTOLOGY ORDERABLES [facility] ([facility]) [address] [place] [address] * HEPATITIS C ANTIBODY (11/24/2018 2:32 PM CDT) HCV Antibody Screen Non Reactive Non Reactive 11/24/2018 4:08 PM CDT [facility] HCV S/C Ratio 0.13 0.00 - 0.79 11/24/2018 4:08 PM CDT [facility] Comment: Khksbf-vg-pgrfwn ratio (S/CO) <0.80: Non Reactive Blood BLOOD SPECIMEN / Unknown Venipuncture / Unknown 11/24/2018 2:32 PM CDT 11/24/2018 2:36 PM CDT Narrative [facility] - 11/24/2018 4:08 PM CDT Non Reactive - Antibodies to Hepatitis C virus (HCV) were not detected, result does not exclude early acute HCV infection. Alondra Saxena DO LAB - CHEMISTRY ORDERABLES [facility] [address] [place] [address] from Last 3 Months or Most Recently Relevant to Health Maintenance Advance Directives * Full Code (Latest Code Status on File) Date Activated Date Inactivated Comments 06/28/2018 1:00 PM 06/30/2018 1:33 PM Care Teams Outside Residential Sales Professional Relationship Specialty Start Date End Date Mervin Kevin MD [address] [facility] [place] [address] PCP - General Family Medicine 12/29/17
--- OUTSIDE RECORDS SUMMARY | 2024-09-23 05:12 | XMS_ITS | Clinical Summary ---
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 Gender Identity Not on file Sexual Orientation Not on file Last Filed Vital Signs Vital Sign Reading Time Taken Comments Blood Pressure 111/67 07/29/2017 9:58 AM IT QUALITY ASSURANCE ANALYST Pulse 72 07/29/2017 9:58 AM IT QUALITY ASSURANCE ANALYST Temperature - - Respiratory Rate - - Oxygen Saturation - - Inhaled Oxygen Concentration - - Weight 68 kg (150 lb) 07/29/2017 9:58 AM IT QUALITY ASSURANCE ANALYST Height 170.2 cm (5' 7 ) 07/29/2017 9:58 AM IT QUALITY ASSURANCE ANALYST Body Mass Index 23.49 07/29/2017 9:58 AM IT QUALITY ASSURANCE ANALYST Plan of Treatment Health Maintenance Due Date [...] patient's age to complete this topic Insurance [employer] Care Teams Union Steward Relationship Specialty Start Date End Date Mervin Kevin MD [address] [address] PCP - General FAMILY PRACTICE 06/30/17
--- OUTSIDE RECORDS SUMMARY | 2024-09-23 05:12 | XMS_ITS | Continuity of Care Document ---
Author Organization [facility] Address [address] [address] Phone Care Team Providers Care Tanning Solution Maker Name Role Phone Pinky Daniels MD Unavailable [...] [facility], [address], [id number], [place] tel:[phone] [facility] No Information [address], [place], [address], [place]. tel:[phone] Referring Provider: Mervin Kevin, [address] [place] [address], [address]. tel:[phone] Est (Level 4) OFFICE/OUTPA TIENT VISIT [facility], [address] [place] [address], [id number], [place] tel:[phone] [facility] allergy symptoms (chief complaint) Recurrent acute suppurative otitis media w/o spontaneous rupture of ear drum of earOther allergic rhinitisSevere persistent asthmaAbnormal results of function studies of other systemsE[facility] [address], [place], [address], [place]. tel:[phone] Referring Provider: Mervin Kevin, [address] [place] [address], [address]. tel:[phone] Est (Level 3) OFFICE/OUTPA TIENT VISIT [facility], [address] [place] [address], [id number], [place] tel:[phone] [facility] recurrent infections (chief complaint) Recurrent acute suppurative otitis media w/o spontaneous rupture of ear drum of earOther allergic rhinitisSevere persistent asthmaAbnormal results of function studies of other systems [address], [place], [address], [place]. tel:[phone] Referring Provider: Ruslan Reid, [address] [facility] [address], [place], [address]. tel:[phone] Est (Level 4) OFFICE/OUTPA TIENT VISIT [facility], [address] [place] [address], [id number], [place] tel:[phone] [facility] recurrent infections (chief complaint) Recurrent acute suppurative otitis media w/o spontaneous rupture of ear drum of earSevere persistent asthmaOther allergic rhinitisAbnorma l results of function studies of other systems [address], [place], [address], [place]. tel:[phone] Referring Provider: Ruslan Reid, [address] [facility] [address], [place], [address]. tel:[phone] New (Level 4) OFFICE/OUTPA TIENT VISIT [facility], [address] [place] [address], [id number], [place] tel:[phone] [facility] recurrent infections (chief complaint) Recurrent acute suppurative otitis media w/o spontaneous rupture of ear drum of earSevere persistent asthmaOther allergic rhinitis Fe-0 [address], [place], [address], [place]. tel:[phone] Referring Provider: Ruslan Reid, [address] [facility] [address], [place], [address]. tel:[phone] Family History Family Member Type Diagnosis Age At Onset Paternal aunt Problem Family history of rheumatoi d arthritis Father Problem Allergic rhinitis Brother Problem Asthma Paternal aunt Problem Lupus erythematosus Sister Problem Asthma Paternal grandmother Problem Asthma Payers Payer name Insurance type Covered green party ID Authormatt amado(s) [facility] [id number] Social History Type Description Quantity Date Captured Comments Alcohol Use Details Unknown Caffeine Use Details Unknown Tobacco Use Status No Information Smoking Status No Information Sex Female Chief Complaint And Reason For Visit No Information Reason For Referral Reason For Referral No Information Plan Of Treatment Date Type Action Status Future Order: Lab Order S. Pneum onia-23 Serotypes ([id number]), Sent on: Sent Future Order: Lab Order CBC With Diff ([id number]), Sent on: Sent Future Order: Lab Order ESR ([id number]), Sent o n: Sent Future Order: Lab Order CRP ([id number]), Sent on: Sent Future Order: Lab Order Comprehe nsive Metabolic Panel ([id number]), Sent on: Sent Future Order: Lab Order CBC With Differential ([id number]), Sent on: Sent Future Order: Lab Order Compleme nt Total (CH50) ([id number]), Sent on: Sent Future Order: Lab Order Immunogl obulins A/E/G/M, Serum ([id number]), Sent on: Sent Future Order: Lab Order Mannose Binding Lectin ([id number]), Sent on: Sent Future Order: Lab Order Strep Pn eumo 23 ([id number]), Sent on: Sent Future Order: Lab Order T- and B -Lymphocyte and Natural Killer Cell Profile ([id number]), Sent on: Sent Future Order: Lab Order Tetanus/ Diphtheria Antibody Profile ([id number]), Sent on: Sent History Of Present Illness [...] protective(She had Pneumovax on 09/02/22)08/12/22IgIgA: 126IgM: 79IgE: 542EE02: 58AH50: (deferred)Anti-Spn 23: decreased 02/16 = 65% protectiveAnti-Diphtheria: 0.1 (protective)Anti-Tetanus: 1.17 (protective)AEC: 215AANC: 16,641Flow CytometryCD3+: 56% (L), 1612 (wnl)CD3+CD4+: 35%, 3517FZ1+CD8+: 26%, 772CD4/CD8 Ratio: 1.33CD16+CD56+: 32% (H), 912 (H)CD19+: 10%, (poor scan quality, best interpretation listed)IgG 995*IgG1 594*IgG2 270*IgG3 74*IgG4 74Environmental Immunocaps: +HDM, cockroach, grass, trees, weeds other than ragweed with total IgE 495C2WB Phenotype: PI*MMTB Quant Gold: negativeHRCT Chest on [...] are planning a colonoscopy future.Data08/12/22IgIgA: 126IgM: 79IgE: 017GI47: 58AH50: (deferred)Anti-Spn 23: decreased 02/16 = 65% protectiveAnti-Diphtheria: 0.1 (protective)Anti-Tetanus: 1.17 (protective)AEC: 215AANC: 16,641Flow CytometryCD3+: 56% (L), 1612 (wnl)CD3+CD4+: 35%, 1714CW8+CD8+: 26%, 772CD4/CD8 Ratio: 1.33CD16+CD56+: 32% (H), 912 (H)CD19+: 10%, (poor scan quality, best interpretation listed)IgG 995*IgG1 594*IgG2 270*IgG3 74*IgG4 74Environmental Immunocaps: +HDM, cockroach, grass, trees, weeds other than ragweed with total IgE 110H7XT Phenotype: MMTB Quant Gold: negativeHRCT Chest on [...] will see hematology next month.Data08/12/22IgIgA: 126IgM: 79IgE: 070DQ79: 58AH50: (deferred)Anti-Spn 23: decreased 02/16 = 65% protectiveAnti-Diphtheria: 0.1 (protective)Anti-Tetanus: 1.17 (protective)AEC: 215AANC: 16,641Flow CytometryCD3+: 56% (L), 1612 (wnl)CD3+CD4+: 35%, 3142QX5+CD8+: 26%, 772CD4/CD8 Ratio: 1.33CD16+CD56+: 32% (H), 912 (H)CD19+: 10%, (poor scan quality, best interpretation listed)IgG 995*IgG1 594*IgG2 270*IgG3 74*IgG4 74Environmental Immunocaps: +HDM, cockroach, grass, trees, weeds other than ragweed with total IgE 797A4MM Phenotype: MMTB Quant Gold: negativeHRCT Chest on [...] weeds other than ragweed with total IgE 904G2QS Phenotype: MMTB Quant Gold: negativeHRCT Chest on [...]
--- OUTSIDE RECORDS SUMMARY | 2024-09-23 05:12 | XMS_ITS | Continuity of Care Document ---
Author Organization [facility] Address [address] [facility] [address] [place] [address] Phone Care Team Providers Care Sweatband Cutting Machine Operator Name Role Phone Rausch OD, Erasmo Unavailable Unavailable Advance Directives Directive Yes / No Effective Date File Name No Information Encounters Encounter Description Practice Location Reason(s) For Visit Diagnoses Date Provider Providers Copied on Encounter [facility], [address], [place], [place], [id number], [place] tel:[phone] [facility] [place] No Information Apr- 4-200 4 Rausch OD Erasmo. [address] , [address], [place], [address], [place]. tel:[phone] Family History Family Member Type Diagnosis Age At Onset No Information Payers Payer name Insurance type Covered libertarian ID Authoriza tion(s) Medicaid [facility] [id number] Social History Type Description Quantity Date Captured [...]
--- OUTSIDE RECORDS SUMMARY | 2024-09-23 05:12 | XMS_ITS | Clinical Summary ---
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
--- OUTSIDE RECORDS SUMMARY | 2024-09-23 05:12 | XMS_ITS | Clinical Summary ---
Author Organization 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
[2024-09-23 05:24] LABS: Basophils Absolute Auto 0.1 K/mm3 (0.0-0.1); Basophils Percent Auto 0.6 % (0.2-1.2); Eosinophils Absolute Auto 0.4 K/mm3 (0-0.3); Hematocrit 41.1 % (37.0-47.0); Hemoglobin 13.6 g/dL (12.0-15.0); Immature Granulocyte Absolute 0.03 K/mm3 (0.00-0.031); Immature Granulocyte Percent A 0.3 % (0-0.5); Lymphocytes Absolute Auto 1.59 K/mm3 (0.9-3.2); Lymphocytes Percent Auto 18.3 % (18.3-44.2); Mean Corpuscular HGB Conc 33.1 g/dl (32-36); Mean Corpuscular Hemoglobin 29.4 pg (26-34); Mean Corpuscular Volume 88.8 fl (80-100); Mean Platelet Volume 10.4 fl (7.4-10.4); Neutrophils Absolute Auto 5.7 K/mm3 (1.3-6.7); Neutrophils Percent Auto 65.8 % (45.5-73.1); Platelet Count Result 256 k/mm3 (150-375); Red Blood Count 4.63 M/mm3 (4.2-5.4); Red Cell Distribution Width 12.7 % (11.5-14.5); White Blood Count 8.7 K/mm3 (4.5-10.0)
[2024-09-23] MEDS: ACETAMINOPHEN 500 MG TABLET 1000 MG PO (05:32)
[2024-09-23] MEDS: PROCHLORPERAZINE EDISYLATE 10 MG/2 ML VIAL IM (05:32)
[2024-09-23] MEDS: diphenhydrAMINE HCl INJ 50 MG/ML VIAL 25 MG IV PUSH (05:32)
[2024-09-23] MEDS: SODIUM CHLORIDE 0.9% IV 2,000 ML 999 ML IV CONT (05:33)
[2024-09-23] MEDS: KETOROLAC 15 MG/ML VIAL (*BKC) IV PUSH (05:33)
[2024-09-23 05:34] LABS: Alanine Aminotransferase 12 U/L (6-35); Albumin Level 4.4 g/dL (3.5-5.1); Alkaline Phosphatase 51 U/L (38-126); Anion Gap 11 mmol/L (4-12); Aspartate Amino Transferase 12 U/L (14-36); Bilirubin,Total 0.6 mg/dL (0.2-1.3); Blood Urea Nitrogen 11 mg/dL (7-17); Carbon Dioxide 21 mmol/L (22-30); Chloride 105 mmol/L (98-107); Estimated CRCL calculation 101 ml/min; Estimated Glomerular Filt Rate > 60; Glucose 88 mg/dL (65-110); Potassium 3.6 mmol/L (3.4-5.0); Sodium 137 mmol/L (137-145)
[2024-09-23 06:00] LABS: Influenza A QL RT-PCR Negative (Negative); Influenza B QL RT-PCR Negative (Negative); RSV RNA, RT-PCR Negative (Negative); SARS-CoV-2 RNA PCR Negative (Negative)
--- NOTE | 2024-09-23 06:16 | ED_ITS ---
HPI - General Adult General Chief complaint: GI Bleed Stated complaint: coughing up blood clots Time Seen by Provider: 09/23/24 04:57 History of Present Illness HPI narrative: This is a 33-year-old female history of recurrent pneumonia presenting flu-like symptoms. Patient says she has been headaches, body aches for the last 3 days. She has also had shortness breath with hemoptysis and has been coughed 3 blood clots. She has right-sided sharp chest pain that is worse with deep breath. Patient has been having subjective fever chills. She is nauseous without vomiting diarrhea. She denies history of blood clots or lower extremity denies any recent travel history. Related Data Home Medications ?Medication ?Instructions ?Recorded ?Confirmed ?Last Taken ?Type budesonide-formoterol HFA 160 2 puff inhalation BID 11/09/19 09/23/23 Unknown History mcg-4.5 mcg/actuation aerosol inhaler (Symbicort) duloxetine 60 mg capsule,delayed 60 mg PO DAILY 11/09/19 09/23/23 Unknown History release vitamin B complex (B 1 tablet PO DAILY 11/09/19 09/23/23 Unknown History Complex-Vitamin B12 tablet) albuterol sulfate 90 mcg/actuation 1 puff inhalation Q4-6H PRN 09/10/22 09/23/23 Unknown History aerosol inhaler Shortness Of Breath Or Wheezing metoprolol succinate 50 mg 50 mg PO HS 09/10/22 09/23/23 Unknown History tablet,extended release 24 hr blood-gluc meter-wrist BP mntr 09/17/22 09/23/23 Unknown History (2Tek Glucose/Blood Pressure kit) fluticasone propionate 50 1 spray intranasal DAILY 09/17/22 09/23/23 Unknown History mcg/actuation nasal spray,suspension (Flonase Allergy Relief) ergocalciferol (vitamin D2) 1,250 50,000 mcg PO WEEKLY 10/04/22 09/23/23 Unknown History mcg (50,000 unit) capsule cyclobenzaprine 10 mg tablet 10 mg PO HS 10/13/22 11/15/22 Unknown History ferrous sulfate 325 mg (65 mg 325 mg PO BID 10/13/22 09/23/23 Unknown History iron) tablet tramadol 50 mg tablet 50 mg PO BID PRN Pain 10/13/22 09/23/23 Unknown History sumatriptan succinate 25 mg tablet mg PO 12/06/22 09/23/23 Unknown History calcium carbonate (Calcium 600) 600 mg PO DAILY 08/10/23 09/23/23 Unknown History aspirin 81 mg chewable tablet 81 mg PO DAILY 09/23/23 09/23/23 Unknown History Allergies Allergy/AdvReac Type Severity Reaction Status Date / Time nitrofurantoin (From Allergy Severe Swelling Verified 09/23/24 04:40 Macrobid) of Lip/Tongue/Throat PMFSH Past Medical History Medical History Numbness and tingling of left arm and leg COPD (chronic obstructive pulmonary disease) GERD (gastroesophageal reflux disease) Thyroid activity decreased Upper abdominal pain Nausea & vomiting Constipation Esophagitis Diabetes Anemia Heart palpitations Bipolar 1 disorder Surgical History Surgical History H/O gynecological procedure 11/18/22 hscope/d & c/bilat salpingectomy/ablation History of delivery x2 Family History Family History Father Diabetes mellitus Heart disease Social History Social History Smoking packs per day: 1.5 Smoking cigarettes per day: 30.0 Years smoked: 15 Smoking pack-years: 22.50 Smoking status: Former smoker Tobacco type: cigarettes Smoking end date: 03/27/22 Alcohol intake: current Alcohol use details: RARE Substance use: current Substance use type: marijuana Other substance usage details: 4 X DAY Last use: 11/08/2019 Do You Feel Safe in your Home?: Yes Lack of Transportation: No Lack of Food: Never True Current Housing: I Have Housing Concerned About Future Housing: No Difficulty Paying Gas/Electric Bills: YES Difficulty Paying for Meds: No Currently Unemployed: No Education: High School Diploma/GED Difficulty w/ Childcare or Family Care: No Living arrangements: with family Occupation/Education: occupation Gender identity (if verbalized by the patient): Female Sexual Orientation (if Verbalized by the Patient): Straight or Heterosexual Spiritual care concerns: No Exam 2 Narrative: APPEARANCE: No apparent distress. Head: atraumatic. EYES: EOMI, NOSE: Atraumatic NECK: Trachea midline RESPIRATORY: No increased rate of breathing, clear to auscultation CARDIOVASCULAR: RRR, no peripheral ABDOMINAL: Non-distended soft nontender MUSCULOSKELETAl: No obvious deformities NEURO: Alert. Moving 4/4 extremities SKIN:: Warm, dry. Normal color PSYCHIATRIC: Normal affect Course Vital Signs Vital signs: Vital Signs Temperature 97.6 F 09/23/24 00:36 Pulse Rate 89 09/23/24 00:36 Respiratory Rate 16 09/23/24 00:36 Blood Pressure 105/61 09/23/24 00:36 Pulse Oximetry 100 09/23/24 00:36 Oxygen Delivery Room Air 09/23/24 00:36 Temperature 97.6 F 09/23/24 00:36 Pulse Rate 70 09/23/24 05:22 Respiratory Rate 18 09/23/24 05:22 Blood Pressure 105/65 09/23/24 05:22 Pulse Oximetry 100 09/23/24 05:22 Oxygen Delivery Room Air 09/23/24 04:41 Medical Decision Making [facility] Narrative Medical decision making narrative: -Course: 33-year-old female presenting with chest pain, hemoptysis, and flu- like symptoms. She was given fluids and pain medications. CTA ordered to evaluate for PE pneumonia or cancer. Negative for PE/PNA. Radiologist commented on a small 7 mm density in the right mainstem bronchus. Unclear of its etiology. She recommended direct visualization as this may be a neoplasm vs clot vs phlegm. This was discussed with the patient and she will be given follow-up with our Oncologist Dr. Davey for further workup. Otherwise the patient feels improved after fluids and pain medications. Her presentation is most consistent with viral illness. She will be discharged to follow-up with her primary care physician and our oncologist. -DDX includes but is not limited to: Pneumonia, PE, viral syndrome, bronchitis, lung cancer Vital Signs Vital Signs: Vital Signs Temperature 97.6 F 09/23/24 00:36 Pulse Rate 89 09/23/24 00:36 Respiratory Rate 16 09/23/24 00:36 Blood Pressure 105/61 09/23/24 00:36 Pulse Oximetry 100 09/23/24 00:36 Oxygen Delivery Room Air 09/23/24 00:36 Temperature 97.6 F 09/23/24 00:36 Pulse Rate 70 09/23/24 05:22 Respiratory Rate 18 09/23/24 05:22 Blood Pressure 105/65 09/23/24 05:22 Pulse Oximetry 100 09/23/24 05:22 Oxygen Delivery Room Air 09/23/24 04:41 Lab Data 09/23/24 05:19 09/23/24 05:19 Labs: Lab Results 09/23/24 Range/Units 05:19 WBC 8.7 (4.5-10.0) K/mm3 RBC 4.63 (4.2-5.4) M/mm3 Hgb 13.6 (12.0-15.0) g/dL Hct 41.1 (37.0-47.0) % MCV 88.8 (80-100) fl MCH 29.4 (26-34) pg MCHC 33.1 (32-36) g/dl RDW 12.7 (11.5-14.5) % Plt Count 256 (150-375) k/mm3 MPV 10.4 (7.4-10.4) fl Immature Gran % (Auto) 0.3 (0-0.5) % Neut % (Auto) 65.8 (45.5-73.1) % Lymph % (Auto) 18.3 (18.3-44.2) % White % (Auto) 11.0 H (2.6-8.5) % Eos % (Auto) 4.0 (0-4.4) % Baso % (Auto) 0.6 (0.2-1.2) % Lymph # (Auto) 1.59 (0.9-3.2) K/mm3 White # (Auto) 1.0 H (0.1-0.6) K/mm3 Eos # (Auto) 0.4 H (0-0.3) K/mm3 Baso # (Auto) 0.1 (0.0-0.1) K/mm3 Abs Immat Gran (auto) 0.03 (0.00-0.031) K/mm3 Absolute Neuts (auto) 5.7 (1.3-6.7) K/mm3 Absolute Nucleated RBC 0.000 (0.0-0.012) K/mm3 Nucleated RBC % 0.0 (0.0-0.2) % Sodium 137 (137-145) mmol/L Potassium 3.6 (3.4-5.0) mmol/L Chloride 105 (98-107) mmol/L Carbon Dioxide 21 L (22-30) mmol/L Anion Gap 11 (4-12) mmol/L BUN 11 (7-17) mg/dL Creatinine 0.77 (0.7-1.0) mg/dL Estim Creat Clear Calc 101 ml/min Estimated GFR > 60 (59 - ) Glucose 88 (65-110) mg/dL Calcium 9.0 (8.4-10.2) mg/dL Total Bilirubin 0.6 (0.2-1.3) mg/dL AST 12 L (14-36) U/L ALT 12 (6-35) U/L Alkaline Phosphatase 51 (38-126) U/L Total Protein 7.0 (6.3-8.2) g/dL Albumin 4.4 (3.5-5.1) g/dL Influenza A (RT-PCR) Negative (Negative) Influenza B (RT-PCR) Negative (Negative) RSV (RT-PCR) Negative (Negative) SARS-CoV-2 RNA (RT-PCR) Negative (Negative) Discharge Plan Discharge Clinical Impression: Viral illness, Lung mass Patient Disposition: Home, Self-Care Condition: Stable Instructions: Antibiotic Form, Coughing Up Blood (Hemoptysis) (ED), Viral Syndrome (ED) Additional Instructions: He was seen emergency department for a viral syndrome. Please use Motrin Tylenol for body aches and fevers. Please drink plenty fluids. Please return to ED if you develop severe chest pain difficulty breathing or feel your condition is getting worse. Your CT showed a small mass in your right bronchus. This may be an early cancer. Please follow-up with Dr. Davey so he can arrange for direct visualization. Patient Language: [place] Prescriptions: No Action metoprolol succinate 50 mg tablet extended release 24 hr 50 mg PO HS albuterol sulfate 90 mcg/actuation HFA aerosol inhaler 1 puff inhalation Q4-6H PRN (Reason: Shortness Of Breath Or Wheezing) fluticasone propionate [Flonase Allergy Relief] 50 mcg/actuation spray,suspension 1 spray intranasal DAILY Rx Instructions: administer into each nostril (DME) 2Tek Glucose/Blood Pressure Kit See Rx Instructions .Route Rx Instructions: As directed aspirin 81 mg tablet,chewable 81 mg PO DAILY Linzess 72 mcg capsule 72 mcg PO DAILY 30 Days Qty: 30 5RF famotidine 20 mg tablet See Rx Instructions .ROUTE .COMPLEX Qty: 60 0RF Dose Instruction: TAKE 1 TABLET BY MOUTH TWICE A DAY Rx Instructions: TAKE 1 TABLET BY MOUTH TWICE A DAY ferrous sulfate 325 mg (65 mg iron) tablet 325 mg PO BID cyclobenzaprine 10 mg tablet 10 mg PO HS tramadol 50 mg tablet 50 mg PO BID PRN (Reason: Pain) sumatriptan succinate 25 mg tablet PO calcium carbonate [Calcium 600] 600 mg calcium (1,500 mg) tablet 600 mg PO DAILY ondansetron 4 mg tablet,disintegrating 4 mg PO Q8H PRN (Reason: nausea and vomiting) Qty: 10 0RF hydrocodone-acetaminophen 5-325 mg tablet 1 tablet PO Q6H PRN (Reason: pain) Qty: 20 0RF vitamin B complex [B Complex-Vitamin B12] Tablet 1 tablet PO DAILY duloxetine 60 mg Capsule,Delayed Release(Dr/Ec) 60 mg PO DAILY budesonide-formoterol [Symbicort] 160-4.5 mcg/actuation Hfa Aerosol Inhaler 2 puff INHALATION BID ergocalciferol (vitamin D2) 1,250 mcg (50,000 unit) capsule 50,000 mcg PO WEEKLY Patient Comments: PT TAKES ON TUESDAY ondansetron HCl 4 mg tablet 4 mg PO Q8H PRN (Reason: nausea and vomiting) Qty: 30 1RF acetaminophen 500 mg tablet 500 mg PO Q6H PRN (Reason: pain) Qty: 30 0RF ibuprofen 600 mg tablet 600 mg PO Q6H PRN (Reason: pain) Qty: 30 0RF omeprazole 40 mg capsule,delayed release(DR/EC) See Rx Instructions .ROUTE .COMPLEX Qty: 90 3RF Dose Instruction: TAKE 1 CAPSULE BY MOUTH EVERY DAY Rx Instructions: TAKE 1 CAPSULE BY MOUTH EVERY DAY valacyclovir [Valtrex] 500 mg tablet 500 mg PO DAILY Qty: 60 6RF fluconazole 150 mg tablet 150 mg PO Q72H Qty: 2 0RF Rx Instructions: as a single dose Follow-up/Referrals: Royal Davey MD [Physician] - 1 Week (Possible bronchus mass) Mervin Kevin MD [Primary Care Provider] - 1 Week
== END 2024-09-23 07:16 | disposition home or self-care (01) ==
PROVIDERS: Emergency Provider Emergency Medicine; PCP Emergency Medicine
DX: B34.9 Viral infection, unspecified (principal); R91.8 Other nonspecific abnormal finding of lung field; Z20.822 Contact with and (suspected) exposure to COVID-19; J44.9 Chronic obstructive pulmonary disease, unspecified; E11.9 Type 2 diabetes mellitus without complications; K21.9 Gastro-esophageal reflux disease without esophagitis; F31.9 Bipolar disorder, unspecified; Z86.2 Personal history of diseases of the blood and blood-forming organs and certain disorders involving the immune mechanism; Z87.891 Personal history of nicotine dependence; Z79.82 Long term (current) use of aspirin; Z79.899 Other long term (current) drug therapy
CPT/HCPCS: 36415; 71045; 71275; 80053; 85025; 87637; 96361; 96372; 96374; 96375; 99284; A9270; J0780; J1200; J1885; J7030; Q9967

== ENCOUNTER 2024-10-29 11:17 | Outpatient (CLI) | payer MEDICAID, SELFPAY ==
--- OUTSIDE RECORDS SUMMARY | 2024-10-29 12:11 | XMS_ITS | CONTINUITY OF CARE DOCUMENT ---
Author Name elliot qianlaurel Address Unknown Organization [facility] Address [address] [place] [address] Phone [phone] Care Team Providers Care Creative Services Director Name Role Phone Carisa Doe MD Unavailable ANA LAURA SANTIAGO MD Unavailable [phone] ANA LAURA SANTIAGO MD Unavailable [phone] PROBLEMS Condition Status Date Provider Notes Cardiology examination active Carisa murray MD Asthma active Carisa Doe MD (Hist ory of) Palpitations active Carisa Doe MD Syncope and collapse active Carisa gaffney MD Chest pain-type to be determined active Usama Doe MD Lupus active Carisa Doe MD ENCOUNTERS Date Type Provider Location Encounter Diag nosis - In-person encounter Office Visit Carisa Doe MD [place] [facility] - In-person encounter Office Visit Carisa Doe MD [facility] Chest pain-type to be determinedLupus - In-person encounter Office Visit Carisa Doe MD [place] - In-person encounter Office Visit Carisa Doe MD [place] [facility] - In-person encounter Office Visit [facility] [facility] - In-person encounter Office Visit Carisa Doe MD [place] [facility] - In-person encounter Office Visit Carisa Doe MD [place] [facility] - In-person encounter Office Visit Carisa Doe MD [place] - In-person encounter Office Visit Carisa Doe MD [place] Cardiology examinationAsthmaPalpitationsSyncope and collapse VITAL SIGNS Date Observation Value Provider Body Mass Index (Ratio) 24.12 kg/m2 Richard Doe MD blood pressure, diastolic 67 mm[Hg] Li nkLogic blood pressure, systolic 96 mm[Hg] Janice kLogic blood pressure, diastolic 67 mm[Hg] Hannah yla [facility] blood pressure, systolic 96 mm[Hg] Suzy la [facility] blood pressure, cuff size regular Hannah ylyeimy [facility] oxygen saturation, oximetry 98 % Shannon [facility] pulse rate 74 /min Shannon [facility] weight E&M 154 [lb_av] Shannon [facility] height E&M 67 [in_i] [facility] Body Mass Index (Ratio) 23.96 kg/m2 [facility] blood pressure, diastolic -1 mm[Hg] Li nkLogic [...] Harrison blood pressure, cuff size regular Sh chlua Harrison pulse rate 81 /min Lety Harrison [...] social history E&M S moking History: Jennifer ellsi has never smoked. Carisa Doe MD social [...] Payer name Policy type / Coverage type [place] red [facility] AND [facility] Medicaid 0 [id number] ADVANCE DIRECTIVES Name Date DISCUSSED - NO DECISION MADE TREATMENT PLAN Date Name Performer [id number],C, c heck echo and exercise stress get [...] for exercise-induced myocardial ischemia Carisa Doe MD [id number],C, H er updated medication list for this problem includes: Symbicort 160-4.5 Mcg/actuation Hfa Aerosol Inhaler (Budesonide-formoterol) Albuterol Sulfate 90 Mcg/actuation Hfa Aerosol Inhaler (Albuterol sulfate) Pulmonary Functions Reviewed: O 2 sat: 98 (12/31/2022) Carisa Doe MD [id number],C, t louie monitor echo and thyroid labls [...] No significant valvular abnormalities. Carisa Doe MD [id number],C c heck tele monitor and thyroid labs [...] well on toprol xl 100 daily at [facility] with no changes palanned Carisa Doe MD [id number],chema Sanchezk echo and exercise stress get tele monitor Carisa Doe MD [id number],C, O n albuterol and symbicort only using PRN Carisa Doe MD [id number],C, t louie monitor echo and thyroid labls [...] No significant valvular abnormalities. Carisa Doe MD [id number],C, c heck tele monitor and thyroid labs [...] NOT TAKING CAFFEINATED PRODUCTS. Carisa Doe MD [id number],chema Sanchez heck tele monitor and thyroid labs January 08, 2022 T elemonitor from 10/2021 showed episode of sinus tachy at 144bpm. We will put her on Toprol XL 25mg. Repeat monitor later this summerApril 09, 2022 T elemonitor shows up PVC/PAC, she has noted improvement with Toprol XL 25mg. Will increase to 25 BID. Will change to 50mg once a day if tolerated. M 2022 I ncrease toprol xl to additonal 25 mg in the pm. Check BPs at home. Carisa Doe MD [id number],C, t louie monitor echo and thyroid labls [...] No significant valvular abnormalities. Carisa Doe MD [id number],S, t louie monitor echo and thyroid labls [...] No significant valvular abnormalities. Carisa Doe MD [id number],C c heck tele monitor and thyroid labs [...] a day if tolerated. Carisa Doe MD [id number],C, c heck tele monitor and thyroid labs January 08, 2022 T elemonitor from 10/2021 showed episode of sinus tachy at 144bpm. We will put her on Toprol XL 25mg. Repeat monitor later this summer Carias Doe MD [id number],S,On albuterol and symbicort. Carisa Doe MD [id number],C,tele monitor echo and thyroid labls Carisa Doe MD [id number],C,c heck echo and exercise stress get tele monitor Carisa Doe MD [id number],S,check tele mo nitor and thyroid labs Carisa [...] well on toprol xl 100 daily at [facility] with no changes palanned December 16, [...] well on toprol xl 100 daily at [facility] with no changes palanned December 16, [...] approved will do treadmill stress nuclear c isela echo to rule out pericardial effusion Carisa Doe MD Cardiology: H er updated medication list for this problem includes: Symbicort 160-4.5 Mcg/actuation Hfa Aerosol Inhaler (Budesonide-formoterol) Albuterol Sulfate 90 Mcg/actuation Hfa Aerosol Inhaler (Albuterol sulfate) Pulmonary Functions Reviewed: O 2 sat: 98 (12/31/2022) December 16, 2023 n o new asthma attacks Carisa Doe MD Cardiology: c heck echo and exercise stress get [...] well on toprol xl 100 daily at [facility] with no changes palanned December 16, [...] TAKING CAFFEINATED PRODUCTS. December 31, 2022 w ore telemonitor ad had one episode of sinus tap at 170 and doing well on toprol xl 100 daily at [facility] with no changes palanned Carisa Doe [...] day if tolerated. Carisa Doe MD Cardiology: c heck tele [...] patient monitoring) Monitor - Telemetry (Mobile Cardiac) [id number] MOD 30-39min HISTORY OF PROCEDURES Procedure Date [...]
--- OUTSIDE RECORDS SUMMARY | 2024-10-29 12:11 | XMS_ITS | Clinical Summary ---
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
--- OUTSIDE RECORDS SUMMARY | 2024-10-29 12:11 | XMS_ITS | Referral Summary ---
Author Organization [facility] Address [address] [place] [id number] Care Team Providers Care Financial Underwriter Name Role Phone Mervin Kevin MD Primary Care Provider [phone] Allergies Active Allergy Reactions Criticality Noted Date Comments Nitrofurantoin Anaphylaxis High 12/29/2017 Social History Tobacco Use Types Packs/Day Years Used Date Smoking Tobacco: Every Day Cigarettes Smokeless Tobacco: Never Personal Safety Answer Date Recorded Getting School Help Needed Not on file 08/21 Comments No Sex and Gender Information Value Date Recorded Sex Assigned at Not on file 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
--- OUTSIDE RECORDS SUMMARY | 2024-10-29 12:11 | XMS_ITS | Clinical Summary ---
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
--- OUTSIDE RECORDS SUMMARY | 2024-10-29 12:11 | XMS_ITS | Clinical Summary ---
Author Organization [facility] Address [address] [address] Care Team Providers Care Tricot Knitting Machine Operator Name Role Phone Mervin Kevin MD Primary Care Provider [phone] Source Comments [facility],non-owned Affiliates and Associated Physician Practices is amultiple site organization consisting of ambulatory clinics and hospital sitesin [place], [place], [place] and [place]. This disclosure is being madepursuant to the Care Everywhere program and may not contain all information available regarding this patient. Last updated 18.[facility] Allergies Active Allergy Reactions Criticality Noted Date Comments Nitrofurantoin Anaphylaxis,Urticaria,Rash High 12/29 Medications * This document contains information received from the source organization and may not represent a complete record from that organization. * Be aware that medications may not be up to date on this document. Alwaysverify current medications with the patient. valACYclovir (VALTREX) 500 MG tablet Take 1 tablet by mouth 2 times daily 30 tablet 11 8 Active albuterol HFA (PROAIR HFA) 108 (90 BASE) MCG/ACT inhaler Inhale 2 puffs by mouth every 6 hours as needed 1 Inhaler 3 8 Active calcium-vitami n D (OS-KRISTINE 500 + D) 500-200 mg-unit tablet Take 1 (one) tablet by mouth once daily Active albuterol (PROVENTIL;QUITA TOLIN) (2.5 MG/3ML) 0.083% nebulizer solution Inhale 2.5 mg by mouth every 4 hours as needed for Shortness of Breath or Wheezing 25 vial 5 8 Active loratadine (CLARITIN) 10 MG tablet Take 1 tablet by mouth once daily 30 tablet 3 8 Active famotidine (PEPCID) 20 MG tablet Take 1 (one) tablet by mouth 2 times daily Active predniSONE (DELTASONE) 10 MG tablet 3 tabs BID x4 days, 2 tabs BID x3 days, 1 tab BID x3 days then stop 42 tablet 1 Active ERGOCALCIFEROL PO Take 1 capsule by mouth once a week Active ferrous sulfate 325 (65 FE) MG tablet Take 1 (one) tablet by mouth once daily Active fluticasone-sa lmeterol (Wixela Inhub) 250-50 MCG/ACT inhaler Inhale 1 (one) puff by mouth two times daily at 4am and 4pm Active cyclobenzaprin e (Flexeril) 10 MG tablet Take 1 (one) tablet by mouth 3 Active dilTIAZem (Cardizem) 30 MG tablet Take 1 (one) tablet by mouth 2 times daily Active fluconazole (Diflucan) 100 MG tablet 4 Active ipratropium (Atrovent) 0.06 % nasal spray [...] 4 Grams (4000 mg) / 24 hours. 4 Active docusate sodium (Colace) 100 MG capsule Take 1 (one) capsule by mouth once daily 14 capsule 4 Active Additional Information Patient not taking.Reported on 02/22/2024 ondansetron, disintegrating , (Zofran ODT) 4 MG tablet Take 1 (one) tablet by mouth every 8 hours as needed for Nausea/Vomiting Allow tablet to dissolve on the tongue 14 tablet 4 Active Additional Information Patient not taking.Reported on 02/22/2024 Active Problems Patient Care Coordination No te Formatting of this note migh t be different from the original. Nopp/mfcc 12/2017 GBS + (06/09/2018) Problem Noted Date Diagnosed Date History of MRSA infection 04/14/2018 Spinal stenosis 04/14/2018 Encounter for anatomic survey 03/06/2018 Overview (04/03/2018): 03/06/2018 Danna Hanna was screened for depression using the [place] Depression Scale (EPDS) at her [facility] initial evaluation on 03/06/2018. Her initial score at baseline was 2. Based off of her score of 2, Danna does not warrant follow up. Patient will [...] Recommend 3rd trimester neonatology consult at [facility] due to psychiatric medications, if continued into [...] from the original note were not included. [facility] PATIENT--PLEASE CALL [phone] (ex 2) IF TRIAGED OR ADMITTED Care Provider: Dr. Erasmo Wood [place] [facility] Care [place] consultants involved: RN-Rosana/Jayce; MFM-Vitor; Cleft Team-Kamila Mojica; Cardiology-Viotr Diagnosis: Cleft Lip & Palate follow up: per Cleft Team consult 9.10: Family will call to schedule a visit with the cleft palate team after the baby is born. Quantitative Manager: undecided as of 04.03 Planned surveillance: Repeat ultrasound at [facility] at 32w & 36w; released from [facility] on 04.03.2018 Delivery location, mode, and GA: [facility], desires vaginal delivery Genetics note: genetic diagnostic [...] laboratory and call the genetic counselors at [phone] or [phone] to notify that specimen is ready for sendout. Order can be placed by genetic counselor in baby's chart at that time. Please request Genetics consult postnatally if clinically indicated by calling the Genetics office at [phone] prior to ordering genetic studies. Front End Driver Concerns: 03/06/18- Patient with history of bipolar [...] growth 08/06/2019 Polyhydramnios, antepartum complication 08/11/2018 Immunizations Immunization Administration Dates Next Due INFLUENZA VACCINE, QUADR. [...] Recorded Patient Health Questionnaire-2 Score 0 02/22/2024 Comments No Sex and Gender Information Value Date Recorded Sex Assigned at Female 02/21/2024 3:10 PM CDT Legal Sex Female 3:34 PM GLOBAL REGULATORY LEAD Gender Identity Female 02/21/2024 3:10 PM CDT [...] Oxygen Concentration 21% 06/30/2018 8 :39 AM GLOBAL REGULATORY LEAD Weight 74.8 kg (165 lb) 02/22/2024 10:16 [...] season) 2024 10/09/2021, 04/20/2021, 03/30/2021 INFLUENZA VACCINE (Season Ended) 2025 04/11/2019, 04/27/2018 DTAP/TDAP/TD VACCINES (2 - T d [...] On track( 019 9:25 AM CDT) Perri Thapa, RN Note: Expected end date: ongoing Interventions: Take all medications as prescribed Let your doctor know right away about any changes in your medications Make sure to request a refill of your medication at least one week prior to your last dose Mobility General No Deanne Rodriguez, MALKA Note: Expected end date: 06/26/2021 The goal is to maintain or improve your mobility at the optimum level for you. Interventions: Mobility General No Deanne Rodriguez, RN Note: Expected end date: 09/24/2021 The [...] Reactive 11/24/2018 3:32 PM CDT [facility] Blood BLOOD SPECIMEN / Unknown Venipuncture / Unknown 11/24/2018 2:32 PM CDT 11/24/2018 2:35 PM CDT Narrative [facility] - 11/24/2018 3:32 PM CDT No Laboratory evidence of HIV infection. us Alondra Saxena DO LAB - CHEMISTRY ORDERAB LES Final Result [facility] [address] [place] [address] * PAP LB RFLX HPV ASCU (11/24/2018 2:32 PM CDT) Diagnosis Comment 11/29/2018 11:13 AM CDT [facility] ([facility]) Comment:NEGATIVE FOR INTRAEP ITHELIAL LESION OR MALIGNANCY. Specimen Adequacy Comment 019 11:13 AM CDT [facility] ([facility]) Comment: Satisfactory for evaluation. Endocervical and/or squamous metaplastic cells (endocervical component) are present. Performed by Comment 11/29/2018 11:13 AM CDT [facility] ([facility]) Comment:Aamir Miller chnologist (ASCP) Comment . 11/29/2018 11:13 AM CDT [facility] ([facility]) Note Comment 11/29/2018 11:13 AM CDT [facility] ([facility]) Comment: The Pap smear is a screening test designed to aid in the detection of premalignant and malignant conditions of the uterine cervix. It is not a diagnostic procedure and should not be used as the sole means of detecting cervical cancer. Both false-positive and false-negative reports do occur. Note Comment 11/29/2018 11:13 AM CDT [facility] ([facility]) Comment: The HPV DNA reflex criteria were not met with this specimen result therefore, no HPV testing was performed. Pathology/Cytolo gy ENTIRE ENDOCERVIX / Unknown Collection / Unknown 11/24/2018 2:32 PM CDT 11/25/2018 7:38 AM CDT [facility] ([facility]) - 11/29/2018 11:13 AM CDT Performed at: [address] [place] [id number] Utility Assembler: Fe Cruz MD, Phone: [phone] Specimen Comment: Source.............Cervix;Endocervix Specimen Comment: No. of containers..01 ThinPrep Vial us Alondra Saxena DO LAB - PATHOLOGY/CYTOLOG Y ORDERABLES Final Result [facility] ([facility]) [address] [place] [address] * HEPATITIS C ANTIBODY (11/24/2018 2:32 PM CDT) HCV Antibody Screen Non Reactive Non Reactive 11/24/2018 4:08 PM CDT [facility] HCV S/C Ratio 0.13 0.00 - 0.79 11/24/2018 4:08 PM CDT [facility] Comment: Wiygsz-gs-rkxxdu ratio (S/CO) <0.80: Non Reactive Blood BLOOD SPECIMEN / Unknown Venipuncture / Unknown 11/24/2018 2:32 PM CDT 11/24/2018 2:36 PM CDT Narrative [facility] - 11/24/2018 4:08 PM CDT Non Reactive - Antibodies to Hepatitis C virus (HCV) were not detected, result does not exclude early acute HCV infection. Alondra Saxena DO LAB - CHEMISTRY ORDERAB LES Final Result [facility] [address] [place] [address] from Last 3 Months or Most Recently Relevant to Health Maintenance Insurance MEDICAID - [place] [facility] MEDICAID - OUT OF STATE Advance Directives * Full Code (Latest Code Status on File) Date Activated Date Inactivated Comments 06/28/2018 1:00 PM 06/30/2018 1:33 PM Care Teams Tricot Knitting Machine Operator Relationship Specialty Start Date End Date Mervin Kevin MD [address] [place] [id number] PCP - General Family Medicine 12/29/17
[2024-10-29 12:25] LABS: HIV 1/2 Ab P24 Ag Result Negative (Negative)
[2024-10-29 14:02] LABS: Syphilis IgG/IgM Antibody Negative (Negative)
[2024-10-29 14:05] LABS: Hepatitis B Surface Antigen Negative (Negative)
[2024-10-29 14:15] LABS: HAV RESULT Negative (Negative); Hepatitis B Core IgM Result Negative (Negative)
[2024-10-29 14:21] LABS: Hepatitis C Virus Antibody Negative (Negative)
== END 2024-10-29 11:18 | disposition home or self-care (01) ==
PROVIDERS: PCP Emergency Medicine; Visit Provider Student in an Organized Health Care Education/Training Program
DX: Z20.2 Contact with and (suspected) exposure to infections with a predominantly sexual mode of transmission (principal); R35.0 Frequency of micturition
CPT/HCPCS: 36415; 80074; 86593; 86695; 86696; 86703; 87086; 87186; G0432

== ENCOUNTER 2024-12-13 11:39 | Outpatient (CLI) | payer MEDICAID, SELFPAY ==
--- NOTE | ~2024-12-13 | MMUS_ITS ---
EXAMINATION: MM diagnostic barbara BI w ayse, US breast BI complete HISTORY: Palpable right breast abnormality TECHNIQUE: Additional 3-D tomosynthesis images of the breasts were performed and synthetic 2-D images were generated. CAD analysis was submitted and interpreted. High resolution bilateral complete breas t ultrasound was performed. COMPARISON: None BREAST PARENCHYMAL COMPOSITION: Dense: The breasts are extremely dense, which lowers the sensitivity of mammography. FINDINGS: MAMMOGRAPHIC FINDINGS: There is a mass in the upper inner quadrant of the right breast, middle third. There are no suspiciou s masses, calcifications or architectural distortion in the left breast to suggest malignancy. ULTRASOUND: Complete US of all 4 quadrants of the breast/s and retroareolar region was reviewed. Right breast: At 12:00, 3 cm from the nipple there is a 4 mm cyst. In the area of palpable concern at 2:00, 6 cm from the nipple there is an oval parallel oriented hyperechoic mass measuring 9 x 8 x 6 m m, most likely benign lipoma. At 7:00, 4 cm from the nipple there is 3 mm cyst. At 10:00, 6 cm from t he nipple there is an oval hypoechoic 7 mm mass with slightly irregular margins and echogenic hilum, most likely a lymph node. At 10:00, 4 cm from the nipple there is a parallel oriented hypoechoic 7 mm mass without internal vascularity or posterior features, likely benign. Left breast: At 12:00, 2 cm from the nipple there is 3 mm cyst. At 3:00, 4 cm from the nipple there i s a 4 mm cyst. Also at this position there is a 9 mm cyst. At 11:00, 5 cm from the nipple there is a 4 mm cyst. IMPRESSION: 1. No evidence for malignancy in the left breast. Probable benign right breast masses. 2. Recommend 6 month follow-up diagnostic right mammogram and right breast ultrasound. BI-RADS category 3, probably benign findings. Reviewed, dictated and finalized at location A. IMPRESSION: 1. No evidence for malignancy in the left breast. Probable benign right breast masses. 2. Recommend 6 month follow-up diagnostic right mammogram and right breast ultr asound. BI-RADS category 3, probably benign findings.
--- OUTSIDE RECORDS SUMMARY | 2024-12-13 12:26 | XMS_ITS | Referral Summary ---
Author Organization [facility] Address [facility] [place] [address] Care Team Providers Care Head Cashier Name Role Phone Mervin Kevin MD Primary Care Provider [phone] Allergies Active Allergy Reactions Criticality Noted Date Comments Nitrofurantoin Anaphylaxis High 12/29/2017 Social History Tobacco Use Types Packs/Day Years Used Date Smoking Tobacco: Every Day Cigarettes Smokeless Tobacco: Never Personal Safety Answer Date Recorded Getting School Help Needed Not on file 08/21 Comments No Sex and Gender Information Value Date Recorded Sex Assigned at Not on file Legal Sex Female 4:55 AM BUSINESS SUPPORT LIAISON Gender Identity Not on file Sexual Orientation [...] 11:40 AM CDT Height 170.2 cm (5' 7) 03/18/2021 11:40 AM CDT Body Mass Index 22.13 03/18/2021 11:40 AM CDT Plan of Treatment Not on file Care Teams Head Cashier Relationship Specialty Start Date End Date Mervin Kevin MD PCP - General Emergency Medicine 02/22/22
--- OUTSIDE RECORDS SUMMARY | 2024-12-13 12:26 | XMS_ITS | Clinical Summary ---
Author Organization [facility] Address [address] [place] [address] Care Team Providers Care Fire Fighter Airport Name Role Phone Mervin Kevin MD Primary Care Provider [phone] Allergies Active Allergy Reactions Criticality Noted Date [...] on file Legal Sex Female 4:55 AM DIRECTOR OF ACQUISITIONS Gender Identity Not on file Sexual Orientation [...] 03/18/2021 11:40 AM CDT Plan of Treatment Health Maintenance Due Date Last Done Comments Cervical Cancer Screening 1990 Depression Screening 1990 Hepatitis C Screening 1990 Varicella Vaccines (1 of 2 - 13+ 2-dose series) 11/23/2003 Hepatitis B Screening 2008 Regular Well Visit/Exam 18-64 2008 Pneumococcal vaccine <65 (1 of 2 - PCV) 2009 Influenza Vaccine (Season Ended) 2025 04/27/20 18 DTaP/Tdap/Td Vaccine (2 - Td or Tdap) 04/06/2028 04/06/2018 HPV Vaccines Aged Out No longer eligi ble based on patient's age to complete this topic Care Teams Fire Fighter [place] Relationship Specialty Start Date End Date Mervin Kevin MD PCP - General Emergency Medicine 02/22/22
--- OUTSIDE RECORDS SUMMARY | 2024-12-13 12:26 | XMS_ITS | Clinical Summary ---
Author Organization [facility] [employer] Address [address] [place] [address] Care Team Providers Care Nuclear Operator Name Role Phone Mervin Kevin MD Primary Care Provider [phone] Source Comments [facility] [employer],non-owned Affiliates and Associated Physician Practices is amultiple site organization consisting of ambulatory clinics and hospital sitesin [place], [place], [place] and [place]. This disclosure is being madepursuant to the Care Everywhere program and may not contain all information available regarding this patient. Last updated 18.[facility] [employer] Allergies Active Allergy Reactions Criticality Noted Date [...] Hanna was screened for depression using the [place] Depression Scale (EPDS) at her [facility] initial evaluation on 03/06/2018. Her initial [...] 3rd trimester neonatology consult at [facility] due to psychiatric medications, [...] from the original note were not included. [facility] PATIENT--PLEASE CALL [phone] (ex 2) IF TRIAGED OR ADMITTED Care Provider: Dr. Erasmo Wood [place] [facility] Care [place] consultants involved: RN-Rosana/Jayce; MFM-Vitor; Cleft Team-Kamila Mojica; Cardiology-Vitor Diagnosis: Cleft Lip & Palate follow up: per Cleft Team consult 9.10: Family will call to schedule a visit with the cleft palate team after the baby is born. Bomb Loader: undecided as of 04.03 Planned surveillance: Repeat ultrasound at [facility] at 32w & 36w; released from [facility] on 04.03.2018 Delivery location, mode, and GA: [facility], desires vaginal delivery Genetics note: genetic diagnostic [...] laboratory and call the genetic counselors at [phone] or [phone] to notify that specimen is ready for sendout. Order can be placed by genetic counselor in baby's chart at that time. Please request Genetics consult postnatally if clinically indicated by calling the Genetics office at [phone] prior to ordering genetic studies. Dictating Transcribing Machine Servicer Concerns: 03/06/18- Patient with history of bipolar [...] PM CDT Legal Sex Female 3:34 PM TITLE COORDINATOR Gender Identity Female 02/21/2024 3:10 PM CDT [...] Oxygen Concentration 21% 06/30/2018 8 :39 AM TITLE COORDINATOR Weight 74.8 kg (165 lb) 02/22/2024 10:16 AM CDT Height 170.2 cm (5' 7) 02/22/2024 10:16 AM CDT Body Mass Index [...] Reactive Non Reactive 11/24/2018 3:32 PM CDT [facility] Blood BLOOD SPECIMEN / Unknown Venipuncture / Unknown 11/24/2018 2:32 PM CDT 11/24/2018 2:35 PM CDT Narrative [facility] - 11/24/2018 3:32 PM CDT No Laboratory evidence of HIV infection. us Alondra Saxena DO LAB - CHEMISTRY ORDERAB LES Final Result [facility] [address] [place] [address] * PAP LB RFLX HPV ASCU (11/24/2018 2:32 PM CDT) Diagnosis Comment 11/29/2018 11:13 AM CDT [facility] ([facility]) Comment:NEGATIVE FOR INTRAEP ITHELIAL LESION OR MALIGNANCY. Specimen Adequacy Comment 019 11:13 AM CDT [facility] ([facility]) Comment: Satisfactory for evaluation. Endocervical and/or squamous metaplastic cells (endocervical component) are present. Performed by Comment 11/29/2018 11:13 AM CDT [facility] ([facility]) Comment:Aamir Miller chnologist (ASCP) Comment . 11/29/2018 11:13 AM CDT [facility] ([facility]) Note Comment 11/29/2018 11:13 AM CDT [facility] ([facility]) Comment: The Pap smear is a screening test designed to aid in the detection of premalignant and malignant conditions of the uterine cervix. It is not a diagnostic procedure and should not be used as the sole means of detecting cervical cancer. Both false-positive and false-negative reports do occur. Note Comment 11/29/2018 11:13 AM CDT [facility] ([facility]) Comment: The HPV DNA reflex criteria were not met with this specimen result therefore, no HPV testing was performed. Pathology/Cytolo gy ENTIRE ENDOCERVIX / Unknown Collection / Unknown 11/24/2018 2:32 PM CDT 11/25/2018 7:38 AM CDT [facility] ([facility]) - 11/29/2018 11:13 AM CDT Performed at: [address] [place] [id number] Patrol Conductor: Fe Cruz MD, Phone: [phone] Specimen Comment: Source.............Cervix;Endocervix Specimen Comment: No. of containers..01 ThinPrep Vial us Alondra Saxena DO LAB - PATHOLOGY/CYTOLOG Y ORDERABLES Final Result [facility] ([facility]) [address] [place] [address] * HEPATITIS C ANTIBODY (11/24/2018 2:32 PM CDT) HCV Antibody Screen Non Reactive Non Reactive 11/24/2018 4:08 PM CDT [facility] HCV S/C Ratio 0.13 0.00 - 0.79 11/24/2018 4:08 PM CDT [facility] Comment: Sdujqx-yi-guxwkd ratio (S/CO) <0.80: Non Reactive Blood BLOOD SPECIMEN / Unknown Venipuncture / Unknown 11/24/2018 2:32 PM CDT 11/24/2018 2:36 PM CDT Narrative [facility] - 11/24/2018 4:08 PM CDT Non Reactive - Antibodies to Hepatitis C virus (HCV) were not detected, result does not exclude early acute HCV infection. Alondra Saxena DO LAB - CHEMISTRY ORDERAB LES Final Result [facility] [address] [place] [address] from Last 3 Months or Most Recently Relevant to Health Maintenance Insurance MEDICAID - [place] [facility] MEDICAID - OUT OF STATE Advance Directives * Full Code (Latest Code Status on File) Date Activated Date Inactivated Comments 06/28/2018 1:00 PM 06/30/2018 1:33 PM Care Teams Nuclear Operator Relationship Specialty Start Date End Date Mervin Kevin MD [address] [place] [id number] PCP - General Family Medicine 12/29/17
--- OUTSIDE RECORDS SUMMARY | 2024-12-13 12:26 | XMS_ITS | Clinical Summary ---
Author Organization [facility] Address [address] [place] [address] Phone Care Team Providers Care Glost Tile Shader Name Role Phone Mervin Kevin MD Primary Care Provider [phone] Allergies Active Allergy Reactions Criticality Noted Date Comments Nitrofurantoin Other (see Comments) High 10/23/2021 Medications fluticasone (FLONASE) 50 MCG/ACT Suspension 2 Sprays by Nasal route daily. Active albuterol 108 (90 Base) MCG/ACT Aerosol Solution take 1 Puff by inhalation every 4 hours as needed for Wheezing. 8 Active ergocalciferol (VITAMIN D) 26548 UNIT Capsule Take 1.25 mg by mouth once a week. 5 Active omeprazole (PriLOSEC) 40 MG CAPSULE DELAYED RELEASE Take 40 mg by mouth daily. 3 Active valACYclovir (VALTREX) 500 MG Tablet Take 500 mg by mouth daily. 8 Active linaCLOtide (Linzess) 72 MCG Capsule Take 72 mcg by mouth daily. Active dilTIAZem (CARDIZEM) 30 MG Tablet Take 30 mg by mouth 2 times daily. 4 Active escitalopram (LEXAPRO) 10 MG Tablet Take 10 mg by mouth daily. Active ferrous sulfate 325 (65 Fe) MG Tablet Take 325 mg by mouth daily. Active famotidine (PEPCID) 20 MG Tablet Take 20 mg by mouth daily. 3 Active metoprolol Succinate (TOPROL-XL) 50 MG TABLET SR 24 HR Take 50 mg by mouth daily. Active diphenhydrAMINE (BENADRYL) 25 MG Capsule Take 25 mg by mouth every 6 hours as needed for Allergies. Active Active Problems Problem Noted Date Diagnosed Date Nodule of right lung 11/21/2024 History of iron deficiency 11/21/2024 Persistent atrial fibrillation 11/21/2024 Chronic bronchitis 11/21/2024 History of systemic lupus erythematosus (SLE) Encounters Date Type Department Care Team Description 12/03/2024 1:50 PM CDT - 12/03/2024 11:59 PM CDT [facility] [address] [place] [address] Wili Solomon MD Discharge Disposition: Discharged to home or Selfcare 12/03/2024 Travel 11/23/2024 1:48 PM CDT - 11/23/2024 11:59 PM CDT [facility] [address] [place] [address] Provider, Not On File Discharge Disposition: Discharged to home or Selfcare 11/23/2024 1:45 PM CDT - 11/23/2024 1:47 PM CDT Hospital Encounter [facility] [address] [place] [address] Provider, Not On File Discharge Disposition: Discharged to home or Selfcare 11/21/2024 9:40 AM CDT [facility] [address] [place] [address] Wili Solomon MD Nodule of right lung (Primary Dx); History of iron deficiency; Persistent atrial fibrillation (HCC); Chronic bronchitis, unspecified chronic bronchitis type (HCC); History of systemic lupus erythematosus (SLE) (HCC) Discharge Disposition: Discharged to home or Selfcare 11/21/2024 Travel from Last 3 Months Family History Medical History Relation Name Comments Diabetes Father Heart Disease Father Hypertension Father Cancer Maternal Grandmother Relation Name Status Comments Father Alive Maternal Grandmother Mother Alive Social History Tobacco Use Types Packs/Day Years Used Date Smoking Tobacco: Former Cigarettes Q uit: 2012 Smokeless Tobacco: Never Tobacco Cessation:Counseling Given: Not Answered Alcohol Use Standard Drinks/Week Comments Yes 0 (1 standard drink = 0.6 oz pur e alcohol) Occasionally Comments No Sex and Gender Information Value Date Recorded Sex Assigned at Not on file Legal Sex Female 1:23 PM CDT Gender Identity Not on file Sexual Orientation Not on file Last Filed Vital Signs Vital Sign Reading Time Taken Comments Blood Pressure 109/71 11/21/2024 9:45 AM CDT Pulse 69 11/21/2024 9:45 AM CDT Temperature 36.8 C (98.2 F) 11/21/2024 9:45 AM CDT Respiratory Rate 18 11/21/2024 9:45 AM CDT Oxygen Saturation 99% 11/21/2024 9:45 AM CDT Inhaled Oxygen Concentration - - Weight 73.5 kg (162 lb) 11/21/2024 9:45 AM CDT Height 170.2 cm (5' 7) 11/21/2024 9:45 AM CDT Body Mass Index 25.37 11/21/2024 9:45 AM CDT Plan of Treatment Health Maintenance Due Date Last Done Comments Human Papillomavirus (HPV) Immunization (1 - 3-dose series) 2005 Hepatitis B Immunization (1 of 3 - 19+ 3-dose series) 2009 HPV/Cotest 2020 Cervical Cancer Screening (CCS) 11/24/2021 Pap Smear 11/24/2021 11/24/2018 Pneumococcal Immunization Combined (2 of 2 - PCV) 09/02/2023 09/01/2022 SARS-COV-2 Immunization ( - season) 2024 10/09/2021, 04/20/2021, 03/30/2021 Influenza Immunization (Seas on Ended) 2025 04/11/2019, 04/27/2018 Respiratory Syncytial Virus (RSV) Immunization (Adult) (1 - 1-dose 75+ series) 2065 Hepatitis C Virus (HCV) Screening Completed 11/24/2018 TdaP Immunization Completed 09/06/2019, 04/06/2018 Meningococcal Immunization (ACWY) Aged Out No longer eligible b ased on patient's age to complete this topic Rotavirus Immunization Aged Out No lo nger eligible based on patient's age to complete this topic Procedures Procedure Name Priority Date/Time Associated Diagnosis Comments POCT CREATININE Routine 12/03/2024 2:[address] REFERENCE IMAGES FOR IMAGE IMPORT Routine 11/23/2024 1:[address] REFERENCE IMAGES FOR IMAGE IMPORT Routine 11/23/2024 1:45 PM CDT from Last 3 Months Results * POCT Creatinine (12/03/2024 2:06 PM CDT) CREATININE - POCT 0.9 0.6 - 1.3 mg/dL 12/03/2024 2:07 PM CDT [facility] Blood 12/03/2024 2:06 PM CDT 12/03/2024 2:07 PM CDT us None Provider POINT OF CARE TESTING Final Resu lt [facility] [address] [place] [address] * CT REFERENCE IMAGES FOR IMAGE IMPORT (11/23/2024 1:48 PM CDT) Only the most recent of2 resultswithin the time period is included. us Not On File Provider IMG CT ORDERABLES Final Res ult from Last 3 Months Insurance MEDICAID [place] Care Teams Glost Tile Shader Relationship Specialty Start Date End Date Mervin Kevin MD [address] [place] [id number] PCP - General Family Medicine 11/21/24
--- OUTSIDE RECORDS SUMMARY | 2024-12-13 12:26 | XMS_ITS | Data Portability ---
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 Daniels note 07/29/22 started Flonase and [...] mcg is no longer on the formulary. Continue Wixela Inhub 250/50 mcg 1 inhalation BID. [...] PCP for further management. Follow-up: 1 year, September 2025 Not available 10/02/2024 12:46:45 Plan of Treatment Reminders Order Date Submit Date Provider Last Modified By Organization Details Last Modified Time Details Appointments Any 30 2025 11:00A Dean Reid MD Not available Not available Not available Lab None recorded. Referral None recorded. Procedures None recorded. Surgeries None recorded. Imaging None recorded. Medication Orders albuterol sulfate HFA 90 mcg/actua tion aerosol inhaler 2024 025 [facility]/Pharmacy #[id number], [address], [place], [address], 10/02/2024 12:40:21 Wixela Inhub 250 mcg-50 mcg/dose powder for inhalatio n 2024 025 [id number], [address] [place], [address], 10/02/2024 12:40:22 ipratropi um bromide 42 mcg (0.06 %) nasal spray 2024 025 [id number], [address] [place], [address], 10/02/2024 12:40:21 albuterol sulfate HFA 90 mcg/actua tion aerosol inhaler 2023 024 [facility]/Pharmacy #[id number], [address] [place], [address], 01/12/2024 11:00:41 Wixela Inhub 250 mcg-50 mcg/dose powder for inhalatio n 2023 024 [facility]/Pharmacy #[id number], [address] [place], [address], 01/12/2024 11:00:41 ipratropi um bromide 42 mcg (0.06 %) nasal spray 2023 024 [facility]/Pharmacy #[id number], [address], [place], [address], 01/12/2024 11:00:42 albuterol sulfate HFA 90 mcg/actua tion aerosol inhaler 2022 023 [facility]/Pharmacy #[id number], [address], [place], [address], 02/07/2023 10:06:41 ipratropi um bromide 42 mcg (0.06 %) nasal spray 2022 023 [facility]/Pharmacy #[id number], [address], [place], [address], 02/07/2023 10:00:36 Patient TargetsNo targets recorded. Patient Instructions Encounter Date Encounter Id Patient Instructions Last Modified By Organization Details Last Modified Time 02/07/2023 [id number] complete PFT w/ post bronchodilator spirometry* - No auth needed Not available 01/02/2024 15:47:26 01/12/2024 [id number] complete PFT w/ post bronchodilator spirometry* [email or web address] Not available 08/13/2024 17:15:39 10/02/2024 [id number] complete PFT w/ post bronchodilator spirometry* Not available 10/02/2024 12:40:16 Reason for Referral None Reported. Results Created Date Observation Date Name Description Value Unit Range Abnormal Flag Note LastModifiedBy Organization Detail LastModifiedTime 07/28/1907/28/2022 [place], modif ied spike villafana ow study No observ ation record ed. [id number] [facility] [address] [place], [address], 08/25/2022 13:32:14 07/28/19 23 07/28/2022 CT, chest , w/o contr ast No observ ation record ed. [id number] [facility] [address] [place], [address], 08/25/2022 13:32:14 08/03/19 23 07/28/2022 [place], modif ied spike villafana ow study No observ ation record ed. [id number] [facility] ([facility] Call Scheduling) [address] [place], [address], 08/25/2022 13:32:14 02/02/20 23 01/31/2023 compl ete PFT w/ post [facility] hodil ator michelle metry * No observ ation record ed. [facility] (One Call Scheduling) [address] [place], [address], 02/01/2023 17:29:30 10/05/19 25 10/02/2024 compl ete PFT w/ post [facility] hodil ator michelle metry * No observ ation record ed. [facility] (One Call Scheduling) [address] [place], [address], 10/04/2024 17:32:29 Result Notes None recorded. Problems Name Problem SNOMED Code Status Onset Date Resolution Date Notes Provider Name and Address Organization Details Recorded Time Posterior rhinorrhea 22459402 Active 2022 Not Available [facility] 4 17:07:19 Severe persistent asthma 298198632 Active 2022 Not Available [facility] 4 17:07:19 Notes:Medical History: Bipol ar depression Migraine headaches Recurrent acute otitis media COVID infections 04/2024, 07/2024, 08/2024 Rhinitis with multiple environmental allergies and postnasal drip Eosinophils 50/uL IgE 259 IU/mL Alpha-1 antitryspin PiMM 135 mg% Severe persistent asthma Atrial fibrillation TYRELL Constipation- predominant IBS Iron deficiency Vit D deficiency Lupus since 2011 Lumbar facet arthropathy Lumbar bilateral foraminal stenosis Lumbar fracture Procedure History: C-sections 2015, 2019 MARTHA-BSO 2022 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 Procedures Surgical History Date Name Laterality Status Provider Name and Address Organization Details Recorded Time 11/19/19 23 Hysterectomy completed Irma Mohr MA [place] [facility] [employer] [facility] 02/07/2023 09:43:48 section completed Not Available [facility] 08/25/2022 13:29:35 Imaging Results None recorded. Procedure Notes None recorded. Medical Equipment None Reported. Allergies Allergen ID Allergen Name Allergen Category Reaction Reaction Severity Criticality Documentation Date Start Date Code Code System Note Provider Name and Address Organization Details Recorded Time 90605 Macrobid medicatio n Not available Not available Not available 08/25/2022 19499 1 RxNorm Not Available [facility] 13:32:12 Medications Name Sig Start Date Stop [...] MOUTH EVERY 12 HOURS FOR 5 DAYS 10/02 completed Not Available Not Available Not Available clindamycin HCl 300 mg capsule TAKE [...] tablet TAKE 1 TABLET BY MOUTH ONCE FOR 1 DOSE active Not Available Not Available No [...] TABLET BY MOUTH EVERY 12 HOURS NEEDED 10/02 completed Not Available Not Available Not Available acetaminoph en 500 mg tablet TAKE [...] Available Not Available cephalexin 500 mg capsule TAKE 1 CAPSULE BY MOUTH EVERY 12 HOURS FOR 5 DAYS active Not Available Not Available No t Available ferrous sulfate 325 mg (65 mg [...] mcg/actuati on aerosol inhaler INHALE 1 PUFF EVERY 4 HOURS NEEDED active Not Available Not Available No t Available diltiazem 30 mg tablet TAKE 1 TABLET BY MOUTH TWICE A DAY active Not Available Not Available No t Available ipratropium bromide 42 mcg (0.06 %) nasal spray SPRAY 1 SPRAY 4 TIMES A DAY BY INTRANASA L ROUTE NEEDED. active Not Available Not Available No [...] Inhub 250 mcg-50 mcg/dose powder for inhalation Inhale 1 puff twice a day by inhalatio n route. 2024 active Not Available Not Available Not Avai lable Accu-Chek Guide Me Glucose Meter USE TO [...] % 72 /min 15 /min 98.6 [degF] 04672.4 1 g 110 mm[Hg] 66 mm[Hg] Not Available [facility] 3 13:30:03 Date Recorded Body mass index (BMI) Heart rate Body height Oxygen saturation Oxygen saturation in Arterial blood by Pulse oximetry Heart rate Respiratory rate Body temperature Body weight Systolic blood pressure Diastolic blood pressure Provider Name and Address Organization Details Last Updated DateTime 3 26 kg/m2 61 /min 165.1 cm 97 % 97 % 61 /min 15 /min 98.2 [degF] 52339.4 1 g 108 mm[Hg] 60 mm[Hg] Not Available [facility] 3 13:30:04 Date Recorded Heart rate Respiratory rate Provider N abelino and Address Organization Details Last Updated DateTime 10/02/2024 80 /min 15 /min Ruslan Reid MD [address] [facility] [address], [place], [address], [place] - [facility] 10/02/2024 12:45:32 Date Recorded Body height Body mass index (BMI) Body weight Body temperature Heart rate Oxygen saturation Oxygen saturation in Arterial blood by Pulse oximetry Systolic blood pressure Diastolic blood pressure Provider Name and Address Organization Details Last Updated DateTime 5 165.1 cm 26.6 kg/m2 07487.7 8 g 98.3 [degF] 80 /min 98 % 98 % 116 mm[Hg] 66 mm[Hg] Irma Mohr MA [facility] [employer] 5 12:20:22 Date Recorded Body height Body mass index (BMI) Body weight Oxygen saturation Oxygen saturation in Arterial blood by Pulse oximetry Body temperature Heart rate Systolic blood pressure Diastolic blood pressure Provider Name and Address Organization Details Last Updated DateTime 4 165.1 cm 25 kg/m2 55968.8 6 g 98 % 98 % 98.1 [degF] 87 /min 118 mm[Hg] 68 mm[Hg] Fabian Lowe CMA [facility] 4 10:40:20 Date Recorded Heart rate Oxygen saturation Oxygen saturation in Arterial blood by Pulse oximetry Heart rate Respiratory rate Provider Name and Address Organization Details Last Updated DateTime 3 59 /min 99 % 99 % 59 /min 15 /min Ruslan Reid MD [address] [facility], [facility] [address], [place], [address], [facility] [employer] 3 10:07:55 Date Recorded Body height Body mass index (BMI) Body weight Body temperature Systolic blood pressure Diastolic blood pressure Provider Name and Address Organization Details Last Updated DateTime 3 165.1 cm 25 kg/m2 51416.8 6 g 98.1 [degF] 110 mm[Hg] 68 mm[Hg] Irma Mohr MA [facility] 3 09:47:14 Social History Question Answer Notes LastModified by Organizat ion Details LastModified Time Tobacco Smoking Status Former Smoker quit 3 years ago Irma Mohr MA null, [facility] [employer] 10/02/2024 12:17:03 What Is Your Level Of Caffeine Consumption? Occasional [id number] Information not available 08/25/2022 In The 14 Days Before Symptom Onset, Have You Had Close Contact With A Laboratory-confi rmed COVID-19 While That Case Was Ill? No MIGRATION.47996 [id number] Information not available 08/25/2022 In The 14 Days Before Symptom Onset, Have You Had Close Contact With A Person Who Is Under Investigation For COVID-19 While That Person Was Ill? No MIGRATION.92732 [id number] Information not available 08/25/2022 What Type Of Diet Are You Following? REGULAR MIGRATION.22465 05241 Information not available 08/25/2022 Do You Have An Electrostatic Air Filter? Yes MIGRATION.56834 92065 Information not available 08/25/2022 Are There Any Guns Present In Your Home? No MIGRATION.60500 52317 Information not available 08/25/2022 Do You Have A Humidifier? Yes MIGRATION.33113 36774 Information not available 08/25/2022 Where [place] You [place]? [place] MIGRATION.40629 71719 Information not available 08/25/2022 Do You Have Moisture Problems In Your Home? No MIGRATION.62369 60363 Information not available 08/25/2022 What Was The Date Of Your Most Recent Tobacco Screening? 10/02/2024 Information not available 10/02/2024 Do You Have Any Pets? Yes MIGRATION.56729 73110 Information not available 08/25/2022 Do You Use Your Seat Belt Or Car Seat Routinely? Yes Information not available 10/02/2024 Do You Have Smoke And Carbon Monoxide Detectors In Your Home? Yes MIGRATION.97381 97540 Information not available 08/25/2022 At What Age Did You Start Smoking Tobacco? 13 MIGRATION.21681 52564 Information not available 08/25/2022 Are You Passively Exposed To Smoke? No MIGRATION.74402 75914 Information not available 08/25/2022 How Much Tobacco Do You Smoke? No MIGRATION.06199 78595 Information not available 08/25/2022 Do You Use Sunscreen Routinely? No MIGRATION.05147 46955 Information not available 08/25/2022 How Many Years Have You Smoked Tobacco? 16 MIGRATION.08544 39570 Information not available 08/25/2022 Have You Recently Traveled Abroad? No MIGRATION.21203 82118 Information not available 08/25/2022 Do You Have Any Dietary Restrictions? No MIGRATION.66205 34763 Information not available 08/25/2022 Sex: Female Functional Status Question Answer Note LastModified by Organizat ion Details LastModified Time Do you use any illicit or recreational drugs? Yes marijuana MIGRATION.26330 29016 Information not available 08/25/2022 Do you or have you ever used any other forms of tobacco or nicotine? No Information not available 10/02/2024 What is your level of alcohol consumption? None MIGRATION.87477 71488 Information not available 08/25/2022 Have you been exposed to chemicals or toxins? 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 Heavy MIGRATION.66215 70469 Information not available 08/25/2022 Mental Status Question Answer Note LastModified by Organizat ion Details LastModified Time Do you feel stressed (tense, restless, nervous, or anxious, or unable to sleep at night)? [id number] [id number] Information not available 08/25/2022 Family History Relationship Description Onset Age of this Age Resolved Age Notes LastModified by Organization Details LastModified Time Father Family history of malignant neoplasm [id number].106 [id number] Not available 08/25/2022 13:29:36 Father Blood coagulation disorder MIGRATION.139 [id number] Not available 08/25/2022 13:29:36 Father Diabetes mellitus MIGRATION.626 [id number] Not available 08/25/2022 13:29:36 Father Chronic obstructive pulmonary disease MIGRATION.740 [id number] Not available 08/25/2022 13:29:36 Brother Asthma MIGRATION.126 [id number] Not available 08/25/2022 13:29:36 Sister Asthma MIGRATION.085 [id number] Not available 08/25/2022 13:29:36 Paternal Grandmother Asthma MIGRATION.970 [id number] Not available 08/25/2022 13:29:36 Maternal Grandmother Asthma MIGRATION.438 [id number] Not available 08/25/2022 13:29:36 Medical History Condition Response CHEST XRAY Y BLINDNESS N KIDNEY STONES N CARPAL TUNNEL SYNDROME N MRSA N LUNG DISEASE/DISORDER Y HISTORY OF DRUG ABUSE N RADIATION / CHEMOTHERAPY N COPD N SPORTS INJURY N ANKLE PAIN N BLOOD DISEASES Y SCHIZOPHRENIA N SHINGLES N BOWEL PROBLEMS N SHOULDER PAIN N DEPRESSION (INCLUDING POST ) N STROKE/TIA N CHEST CT Y KNEE [...] N NEUROPATHY N AIDS/HIV N FRACTURES N ELBOW PAIN N HYPERTENSION N TOURETTE'S N ANXIETY DISORDER N Metal allergy N BLOOD TRANSFUSION N ANEMIA/BLOOD DISORDER N BIPOLAR DISORDER N BRONCHITIS N OSTEOARTHRITIS N TUBERCULOSIS N FOOT PROBLEM N HEART VALVE DISORDERS N ALLERGIES/HAYFEVER N SOFT TISSUE INJURY N INFECTIOUS DISEASE N HEART ARRHYTHMIA N INSOMNIA N RHEUMATOID ARTHRITIS N HIGH CHOLESTEROL / HYPERLIPIDEMIA N EDEMA N CHRONIC PAIN SYNDROME N CAROTID BLOCKAGE N BACK / NECK PROBLEMS N HAVE YOU BEEN HOSPITALIZED OR SEEN IN [facility] IN THE PAST YEAR ? N BURSITIS N HERNIATED DISC N DIALYSIS N FIBROMYALGIA N OSTEOPOROSIS Y ARTHRITIS Y NO SIGNIFICANT PAST MEDICAL HISTORY N PERIPHERAL NEUROPATHY N DIABETES, TYPE Y HEARTBURN / REFLUX N HEPATITIS / LIVER DISEASE Y GOUT N ALZHEIMER'S DISEASE N SLEEP DISORDER N HERPES N SEIZURES/EPILEPSY N HEADACHES/MIGRAINES N VASCULAR DISEASE N HIP PAIN N Blood Disorder N DIZZINESS N HEAD TRAUMA OR INJURY N HEART DISEASE/HEART PROBLEMS N MULTIPLE SCLEROSIS N CARDIAC ARRHYTHMIA N CANCER: SPECIFY N ANESTHESIA COMPLICATIONS N PNEUMONIA Y ATRIAL FIBRILLATION N AUTOIMMUNE DISEASE N Gynecological HistoryNo gynecological history recorded. Obstetrics History GPAL:G 0 P 0 0 0 0 Immunizations Vaccine Type Date Status Note Provider Nam e and Address Organization Details Recorded Time COVID-19, mRNA, LNP-S, PF, 30 mcg/0.3 mL dose 04/20/2021 completed Not Available [facility] 4 17:07:19 COVID-19, mRNA, LNP-S, PF, 30 mcg/0.3 mL dose 03/30/2021 completed Not Available [facility] 4 17:07:19 Past Encounters Encounter ID Performer Location Encounter Start Date Encounter Closed Date Diagnosis/Indication Diagnosis SNOMED-CT Code Diagnosis ICD10 Code Diagnosis Note [id number] MD CLAUDIA Houston_GMDena [address] [address] 04/09/2021 00:00:00 04/09/2021 09:36:09 [id number] MD JOSSUE Houston [address] [address] 04/23/2021 00:00:00 04/23/2021 11:07:07 [id number] MD CLAUDIA Preciado_DAVID [facility] [address] [address] 10/08/2021 00:00:00 10/08/2021 15:19:33 [id number] MD CLAUDIA Preciado_GMDena [facility] [address] [address] 10/22/2021 00:00:00 10/22/2021 15:34:32 [id number] MD JOSSUE Preciado [facility] [address] [address] 04/22/2022 00:00:00 04/22/2022 13:17:16 [id number] MD JOSSUE Preciado [facility] [address] [address] 07/15/2022 00:00:00 07/15/2022 16:05:23 [id number] MD JOSSUE Preciado [facility] [address] [address] 08/05/2022 00:00:00 08/05/2022 15:35:19 [id number] MD CLAUDIA Preciado_GMDena [facility] [address] [address] 02/07/2023 09:27:31 02/08/2023 10:11:10 Posterior rhinorrhea 99290539 R09.82 Severe per sistent asthma 180715247 J45.50 [id number] MD CLAUDIA Preciado_GMG [facility] [address] [place] [address] 01/12/2024 10:29:39 01/13/2024 08:21:56 Severe persistent asthma 594720124 J45.50 Posterior rhinorrhea 758 63845 R09.82 [id number] Karie Juares NP [address] [address] 07/05/2024 14:05:19 07/05/2024 17:28:27 [id number] Karie Juares NP [facility] [address] [address] 08/02/2024 14:32:51 08/02/2024 15:49:42 [id number] Ruslan Reid MD [facility] [place] [address] [facility] [address] [place] [address] 10/02/2024 11:57:56 10/03/2024 13:12:21 Severe persistent asthma 191658076 J45.50 Posterior rhinorrhea 758 61114 R09.82 Health Concerns Section Related Observation LastModified by Organization Detai ls LastModified Time None Recorded Concern Status LastModified by Organization Details LastModified Time None Recorded Advance Directives Directive None Recorded Payers Insurance Date Sequence Insurance Name Policy Number Policy Barrett Covered Member ID Barrett Member ID Guarantor Name 10/02/2024 1 [place] [id number] 1 [place] [id number] [place] 12/01/2024 1 [place] [facility] [place] [id number] [place] 10/30/2024 2 [place] [id number] 1 [place] [id number] [place] D Daniel Notes Date Note Type Note [...] 20 lbs objectsAlleviating factors: restModified [facility] [place] (mMRC) Dyspnea Scale - Grade 2Grade 0 [...] moderate chance of dozing. Ruslan Reid MD [address] [facility], [place], [address], [place] - [facility] [employer] 08/17/2023 14:56:20 01/12/2024 text/html Primary care/Ref erring provider: Mervin Kevin, MDPatient is here to go over her asthma management.Initial development of shortness of breath: 2005Duration of shortness of breath: 19 yearsCondition of shortness of breath: stableTiming of shortness of breath: morning and bedtimeFrequency: up to 10 times a dayLimits activities: yesAggravating factors: walking, lifting 20 lbs objectsAlleviating factors: restModified [employer] [place] (mMRC) Dyspnea Scale - Grade 2Grade 0 [...] chance of dozing. Ruslan Reid MD [address] [place] [address], [facility] [address], [place], [address], [facility] 01/12/2024 11:03:36 10/02/2024 text/html Primary care/Ref erring provider: Mervin Kevin, MDPatigerardo is here to go over her asthma management.Initial development of shortness of breath: 2005Duration of shortness of breath: 20 yearsCondition of shortness of breath: stableTiming of shortness of breath: morning and bedtimeFrequency: up to 8 times a dayLimits activities: yesAggravating factors: walking, lifting 20 lbs objectsAlleviating factors: restModified [facility] [employer] [place] (mMRC) Dyspnea Scale - Grade 2Grade 0 [...] AND CHANCE OF DOZINGSitting and reading - 1Watching television - 3Sitting inactive in a public place (e.g. a theater or meeting) - 1As a passenger in a car for an hour without a break - 3Lying down to rest in the afternoon when circumstances permit - 3Sitting and talking to someone - 0Sitting quietly after lunch without alcohol - 1In a car, while stopped for a few minutes in the traffic - 1TOTAL SCORE 13Subjectively, patient has a moderate chance of dozing. Ruslan Reid MD [address] [address], [place], [address], [place] - [facility] 10/02/2024 12:46:55 OBGyn Episode No OBEpisode recorded.
--- OUTSIDE RECORDS SUMMARY | 2024-12-13 12:26 | XMS_ITS | Continuity of Care Document ---
Author Organization [facility] Address [address] [facility] [address] [place] [address] Phone Care Team Providers Care Fashion Adviser Name Role Phone Rausch OD, Erasmo Unavailable Unavailable Advance Directives Directive Yes / No Effective Date File Name No Information Encounters Encounter Description Practice Location Reason(s) For Visit Diagnoses Date Provider Providers Copied on Encounter [facility], [address] [facility], [place], [place], [id number], [place] tel:[phone] [facility] [place] No Information Apr- 4-200 4 Rausch OD Erasmo. [address] [facility] [place] , [address], [place], [address], [place]. tel:[phone] Family History Family Member Type Diagnosis Age At Onset No Information Payers Payer name Insurance type Covered green party ID Authoriza tion(s) Medicaid [facility], [facility] [id number] Social History Type Description Quantity Date Captured [...]
--- OUTSIDE RECORDS SUMMARY | 2024-12-13 12:26 | XMS_ITS | Continuity of Care Document ---
Author Organization [facility] Address [address] [address] Phone Care Team Providers Care Electronic Technologist Name Role Phone Pinky Daniels MD Unavailable [...] [facility], [address], [id number], [place] tel:[phone] [facility] No Information 0 4 Frances Chesh[address]. [address], [place], [address], [place]. tel:[phone] Referring Provider: Mervin Kevin, [address] [place] [address], [address]. tel:[phone] Est (Level 4) OFFICE/OUTPA TIENT VISIT [facility], [address] [place] [address], [id number], [place] tel:[phone] [facility] allergy symptoms (chief complaint) Recurrent acute suppurative otitis media w/o spontaneous rupture of ear drum of earOther allergic rhinitisSevere persistent asthmaAbnormal results of function studies of other systemsUniversity [facility] 2 3 Frances Cheshil. [address], [place], [address], [place]. tel:[phone] Referring Provider: Mervin Kevin, [address] [place] [address], [address]. tel:[phone] Est (Level 3) OFFICE/OUTPA TIENT VISIT [facility], [address] [place] [address], [id number], [place] tel:[phone] [facility] recurrent infections (chief complaint) Recurrent acute suppurative otitis media w/o spontaneous rupture of ear drum of earOther allergic rhinitisSevere persistent asthmaAbnormal results of function studies of other systems 0 3 Frances Cheshil. [address], [place], [address], [place]. tel:[phone] Referring Provider: Ruslan Reid, 2043 [facility] 15, [place], [address]. tel:[phone] Est (Level 4) OFFICE/OUTPA TIENT VISIT [facility], [address] [place] [address], [id number], [place] tel:[phone] [facility] recurrent infections (chief complaint) Recurrent acute suppurative otitis media w/o spontaneous rupture of ear drum of earSevere persistent asthmaOther allergic rhinitisAbnorma l results of function studies of other systems 3 Frances Cheshil. [address], [place], [address], [place]. tel:[phone] Referring Provider: Ruslan Reid, 2043 [facility] 15, [place], [address]. tel:[phone] New (Level 4) OFFICE/OUTPA TIENT VISIT [facility], [address] [place] [address], [id number], [place] tel:[phone] [facility] recurrent infections (chief complaint) Recurrent acute suppurative otitis media w/o spontaneous rupture of ear drum of earSevere persistent asthmaOther allergic rhinitis Fe-0 3 Frances Cheshil. [address], [place], [address], [place]. tel:[phone] Referring Provider: Ruslan Reid, 2043 [facility] [address], [place], [address]. tel:[phone] Family History Family Member Type Diagnosis Age At Onset Paternal aunt Problem Family history of rheumatoi d arthritis Father Problem Allergic rhinitis Brother Problem Asthma Paternal aunt Problem Lupus erythematosus Sister Problem Asthma Paternal grandmother Problem Asthma Payers Payer name Insurance type Covered green party ID Authormatt amado(s) [facility] [id number] Social History Type Description Quantity Date Captured Comments Alcohol Use Details Unknown Caffeine Use Details Unknown Tobacco Use Status No Information Smoking Status No Information Sex Female Chief Complaint And Reason For Visit No Information Reason For Referral Reason For Referral No Information Plan Of Treatment Date Type Action Status Future Order: Lab Order S. Pneum onia-23 Serotypes ([id number]), Sent on: Sent Future Order: Lab Order CBC With Diff ([id number]), Sent on: Sent Future Order: Lab Order ESR ([id number]), Sent o n: Sent Future Order: Lab Order CRP ([id number]), Sent on: Sent Future Order: Lab Order Comprehe nsive Metabolic Panel ([id number]), Sent on: Sent Future Order: Lab Order CBC With Differential ([id number]), Sent on: Sent Future Order: Lab Order Compleme nt Total (CH50) ([id number]), Sent on: Sent Future Order: Lab Order Immunogl obulins A/E/G/M, Serum ([id number]), Sent on: Sent Future Order: Lab Order Mannose Binding Lectin ([id number]), Sent on: Sent Future Order: Lab Order Strep Pn eumo 23 ([id number]), Sent on: Sent Future Order: Lab Order T- and B -Lymphocyte and Natural Killer Cell Profile ([id number]), Sent on: Sent Future Order: Lab Order Tetanus/ Diphtheria Antibody Profile ([id number]), Sent on: Sent History Of Present Illness [...] protective(She had Pneumovax on 09/02/22)08/12/22IgIgA: 126IgM: 79IgE: 110XS29: 58AH50: (deferred)Anti-Spn 23: decreased 02/16 = 65% protectiveAnti-Diphtheria: 0.1 (protective)Anti-Tetanus: 1.17 (protective)AEC: 215AANC: 16,641Flow CytometryCD3+: 56% (L), 1612 (wnl)CD3+CD4+: 35%, 6487ZO4+CD8+: 26%, 772CD4/CD8 Ratio: 1.33CD16+CD56+: 32% (H), 912 (H)CD19+: 10%, (poor scan quality, best interpretation listed)IgG 995*IgG1 594*IgG2 270*IgG3 74*IgG4 74Environmental Immunocaps: +HDM, cockroach, grass, trees, weeds other than ragweed with total IgE 859C1BA Phenotype: PI*MMTB Quant Gold: negativeHRCT Chest on [...] are planning a colonoscopy future.Data08/12/22IgIgA: 126IgM: 79IgE: 166YS77: 58AH50: (deferred)Anti-Spn 23: decreased 02/16 = 65% protectiveAnti-Diphtheria: 0.1 (protective)Anti-Tetanus: 1.17 (protective)AEC: 215AANC: 16,641Flow CytometryCD3+: 56% (L), 1612 (wnl)CD3+CD4+: 35%, 0635EB0+CD8+: 26%, 772CD4/CD8 Ratio: 1.33CD16+CD56+: 32% (H), 912 (H)CD19+: 10%, (poor scan quality, best interpretation listed)IgG 995*IgG1 594*IgG2 270*IgG3 74*IgG4 74Environmental Immunocaps: +HDM, cockroach, grass, trees, weeds other than ragweed with total IgE 748W2SI Phenotype: MMTB Quant Gold: negativeHRCT Chest on [...] will see hematology next month.Data08/12/22IgIgA: 126IgM: 79IgE: 556SK75: 58AH50: (deferred)Anti-Spn 23: decreased 02/16 = 65% protectiveAnti-Diphtheria: 0.1 (protective)Anti-Tetanus: 1.17 (protective)AEC: 215AANC: 16,641Flow CytometryCD3+: 56% (L), 1612 (wnl)CD3+CD4+: 35%, 4494MK2+CD8+: 26%, 772CD4/CD8 Ratio: 1.33CD16+CD56+: 32% (H), 912 (H)CD19+: 10%, (poor scan quality, best interpretation listed)IgG 995*IgG1 594*IgG2 270*IgG3 74*IgG4 74Environmental Immunocaps: +HDM, cockroach, grass, trees, weeds other than ragweed with total IgE 077A8YQ Phenotype: MMTB Quant Gold: negativeHRCT Chest on [...] weeds other than ragweed with total IgE 762O7AI Phenotype: MMTB Quant Gold: negativeHRCT Chest on [...]
--- OUTSIDE RECORDS SUMMARY | 2024-12-13 12:27 | XMS_ITS | Clinical Summary ---
Author Organization [facility] Address [address] [place] [address] [place] [address] Care Team Providers Care Dressed Poultry Grader Name Role Phone Unavailable Primary Care Provider [...] ipratropium bromide (ATROVENT) 42 mcg (0.06 %) Anderson, Non-Aerosol INSTILL 1 SPRAY INTO THE NOSTRILS [...] on file Legal Sex Female 10:24 AM PATHOLOGY TECH Gender Identity Not on file Sexual Orientation [...] 12:52 PM CDT Height 170.2 cm (5' 7) 10/01/2022 10:17 AM CDT Body Mass Index [...]
--- OUTSIDE RECORDS SUMMARY | 2024-12-13 12:27 | XMS_ITS | CONTINUITY OF CARE DOCUMENT ---
Author Name elliot qianlaurel Address Unknown Organization [facility] Address [address] [facility] [address] [place] [address] Phone [phone] Care Team Providers Care Baby Sitter Name Role Phone Carisa Doe MD Unavailable ANA LAURA SANTIAGO MD Unavailable [phone] ANA LAURA SANTIAGO MD Unavailable [phone] PROBLEMS Condition Status Date Provider Notes Cardiology examination active Carisa murray MD Asthma active Carisa Doe MD (Hist ory of) Palpitations active Carisa Doe MD Syncope and collapse active Carisa gaffney MD Chest pain-type to be determined active Usama Doe MD Lupus active Carisa Doe MD ENCOUNTERS Date Type Provider Location Encounter Diag nosis - In-person encounter Office Visit Carisa Doe MD [facility] - In-person encounter Office Visit Carisa Doe MD [facility] [facility] Chest pain-type to be determinedLupus - In-person encounter Office Visit Carisa Doe MD [facility] [facility] - In-person encounter Office Visit Carisa Doe MD [place] [facility] - [place] [facility] [place] In[place]person encounter Office Visit Carisa Doe MD [place] [facility] - In-person encounter Office Visit Carisa Doe MD [place] [facility] - In-person encounter Office Visit Carisa Doe MD [place] [facility] - In-person encounter Office Visit Carisa Doe MD [facility] [facility] Cardiology examinationAsthmaPalpitationsSyncope and collapse VITAL SIGNS Date Observation Value Provider Body Mass Index (Ratio) 24.12 kg/m2 Richard Doe MD blood pressure, diastolic 67 mm[Hg] Li nkLogic blood pressure, systolic 96 mm[Hg] Janice kLogic blood pressure, diastolic 67 mm[Hg] Hannah yla Rust blood pressure, systolic 96 mm[Hg] Suzy la Rust blood pressure, cuff size regular Hannah ylyeimy Rust oxygen saturation, oximetry 98 % Shannon Rust pulse rate 74 /min Shannon Rust weight E&M 154 [lb_av] Shannon Rust height E&M 67 [in_i] [facility] Body Mass Index (Ratio) 23.96 kg/m2 [facility] blood pressure, diastolic -1 mm[Hg] Li [...] Payer name Policy type / Coverage type [place] [facility] Medicaid 0 [id number] ADVANCE DIRECTIVES Name Date DISCUSSED - NO DECISION MADE TREATMENT PLAN Date Name Performer [id number],C, c heck echo and exercise stress get [...] for exercise-induced myocardial ischemia Carisa Doe MD [id number],C, H er updated medication list for this problem includes: Symbicort 160-4.5 Mcg/actuation Hfa Aerosol Inhaler (Budesonide-formoterol) Albuterol Sulfate 90 Mcg/actuation Hfa Aerosol Inhaler (Albuterol sulfate) Pulmonary Functions Reviewed: O 2 sat: 98 (12/31/2022) Carisa Doe MD [id number],C, t louie monitor echo and thyroid labls [...] No significant valvular abnormalities. Carisa Doe MD [id number],C c heck tele monitor and thyroid labs [...] well on toprol xl 100 daily at [facility] with no changes palanned Carisa Doe MD [id number],chema Sanchezk echo and exercise stress get tele monitor Carisa Doe MD [id number],C, O n albuterol and symbicort only using PRN Carisa Doe MD [id number],C, t louie monitor echo and thyroid labls [...] No significant valvular abnormalities. Carisa Doe MD [id number],C, c heck tele monitor and thyroid labs [...] NOT TAKING CAFFEINATED PRODUCTS. Carisa Doe MD [id number],chema Sanchez heck tele monitor and thyroid labs [...] Check BPs at home. Carisa Doe MD [id number],C, t louie monitor echo and thyroid labls [...] No significant valvular abnormalities. Carisa Doe MD [id number],S, t louie monitor echo and thyroid labls [...] No significant valvular abnormalities. Carisa Doe MD [id number],C c heck tele monitor and thyroid labs [...] a day if tolerated. Carisa Doe MD [id number],C, c heck tele monitor and thyroid labs January 08, 2022 T elemonitor from 10/2021 showed episode of sinus tachy at 144bpm. We will put her on Toprol XL 25mg. Repeat monitor later this summer Carisa Doe MD [id number],S,On albuterol and symbicort. Carisa Doe MD [id number],C,tele monitor echo and thyroid labls Carisa Doe MD [id number],C,c heck echo and exercise stress get tele monitor Carisa Doe MD [id number],S,check tele mo nitor and thyroid labs Carisa [...] well on toprol xl 100 daily at [facility] with no changes palanned December 16, 2023 [...] heck echo to rule out pericardial effusion Cairsa Doe MD Cardiology: t louie monitor echo [...] well on toprol xl 100 daily at [facility] with no changes palanned December 16, 2023 [...] well on toprol xl 100 daily at [facility] with no changes palanned December 16, 2023 [...] well on toprol xl 100 daily at [facility] with no changes palanned Carisa Doe MD [...] patient monitoring) Monitor - Telemetry (Mobile Cardiac) 78001 MOD 30-39min HISTORY OF PROCEDURES Procedure Date [...]
== END 2024-12-13 11:40 | disposition home or self-care (01) ==
LOC: ANHIMG 11:39
PROVIDERS: PCP Emergency Medicine; Visit Provider Surgery
DX: N63.12 Unspecified lump in the right breast, upper inner quadrant (principal); N64.9 Disorder of breast, unspecified; N63.0 Unspecified lump in unspecified breast
CPT/HCPCS: 76641; 77062; 77066; G0279

== ENCOUNTER 2024-12-24 11:56 | Inpatient (IN) | payer MEDICAID, SELFPAY ==
--- NOTE | ~2024-12-24 | CT_ITS ---
EXAMINATION: CT abdomen pelvis w con DATE: 12/24/2024 18:54 INDICATION: RUQ pain TECHNIQUE: Computed tomography (CT) of the abdomen and pelvis was performed with 100 mL Omnipaque-350 intravenous contrast. Automated exposure control and iterative reconstruction technique were employe d. The dose-length product was 336.92 mGy-cm. COMPARISON: None. FINDINGS: Lower thorax: Unremarkable Liver: Enlarged. Biliary/Gallbladder: Gallbladder is normal. No bile duct dilation. Pancreas: No mass or duct dilation. Spleen: Normal. Adrenals:No mass. Kidneys: No suspicious mass, obstructing stone, or hydronephrosis. GI tract: Mild distal esophageal and gastric wall edema. No small or large bowel dilation. Normal rocio endix. Mesentery/Peritoneum: No ascites, mass, or free air. Retroperitoneum: No mass. Nonocclusive thrombus in the splenic vein just prior to its confluence with the inferior anterior mesenteric vein, likely extending into the main portal vein but partially obsc ured by unopacified blood, with more discrete and linear appearing filling defects in the distal main portal vein, right portal vein, and several proximal branches. Pelvis: Pelvic organs are within normal limits. Soft Tissues: Soft tissues and body wall unremarkable. Bones: No acute osseous finding. IMPRESSION: Mild esophagitis/gastritis. Hepatomegaly. Nonocclusive acute appearing splenic portal vein thrombosis. Reviewed, dictated and finalized at location K.
--- NOTE | ~2024-12-24 | US_ITS ---
EXAMINATION: US abdomen limited DATE: 12/24/2024 18:13 INDICATION: gallstone eval TECHNIQUE: Multiple grayscale and Doppler ultrasound images of limited portions of the abdomen were o btained. COMPARISON: 03/19/2022; CT abdomen pelvis 09/01/2022. FINDINGS: The visualized portions of the pancreas are normal. The liver is normal with normal echogen icity and echotexture. No surface nodularity. Normal hepatopetal flow in the main portal vein. Normal gallbladder. The common bile duct measures 4 mm. Negative sonographic Hernandez sign, however this may be confounded by pain medication use IMPRESSION: Normal limited abdominal ultrasound findings. Reviewed, dictated and finalized at location K.
--- OUTSIDE RECORDS SUMMARY | 2024-12-24 12:03 | XMS_ITS | Continuity of Care Document ---
Author Organization [facility] Address [address] [facility] [address] [place] [address] Phone Care Team Providers Care Data Clerk Name Role Phone Rausch OD, Erasmo Unavailable Unavailable Advance Directives Directive Yes / No Effective Date File Name No Information Encounters Encounter Description Practice Location Reason(s) For Visit Diagnoses Date Provider Providers Copied on Encounter [facility], [address], [place], [place], [id number], [place] tel:[phone] [facility] [place] No Information Apr- 4-200 4 Rausch OD Erasmo. [address] [facility] [place] , [address], [place], [address], [place]. tel:[phone] Family History Family Member Type Diagnosis Age At Onset No Information Payers Payer name Insurance type Covered green party ID Authoriza tion(s) Medicaid [facility] [id number] Social History Type Description Quantity Date Captured [...]
--- OUTSIDE RECORDS SUMMARY | 2024-12-24 12:03 | XMS_ITS | Clinical Summary ---
Author Organization [facility] Address [address] [place] [address] Care Team Providers Care Simplex Printer Installer Name Role Phone Mervin Kevin MD Primary Care Provider [phone] Social History Tobacco Use Types Packs/Day Years Used Date Smoking Tobacco: Never Assessed Comments Unknown Sex and Gender Information Value Date Recorded Sex Assigned at Not on file Legal Sex Female 10:18 AM TURF MANAGER Gender Identity Not on file Sexual Orientation Not on file Last Filed Vital Signs Vital Sign Reading Time Taken Comments Blood Pressure 111/67 07/29/2017 9:58 AM TURF MANAGER Pulse 72 07/29/2017 9:58 AM TURF MANAGER Temperature - - Respiratory Rate - - Oxygen Saturation - - Inhaled Oxygen Concentration - - Weight 68 kg (150 lb) 07/29/2017 9:58 AM TURF MANAGER Height 170.2 cm (5' 7) 07/29/2017 9:58 AM TURF MANAGER Body Mass Index 23.49 07/29/2017 9:58 AM TURF MANAGER Plan of Treatment Health Maintenance Due Date [...] 5 Years) and At-Risk Patients (6 to 49 Years) Aged Out No longer eligible b ased on patient's age to complete this topic RSV Immunizations Under 20 Months Aged Out No longer eligible based on patient's age to complete this topic Insurance [employer] Care Teams Simplex Printer Installer Relationship Specialty Start Date End Date Mervin Kevin MD [address] [address] PCP - General FAMILY PRACTICE 06/30/17
--- OUTSIDE RECORDS SUMMARY | 2024-12-24 12:03 | XMS_ITS | Clinical Summary ---
Author Organization [facility] Address [address] [facility] [place] [address] Care Team Providers Care Sales Associate Fishing Name Role Phone Mervin Kevin MD Primary Care Provider [phone] Source Comments [facility],non-owned Affiliates and Associated Physician Practices is amultiple site organization consisting of ambulatory clinics and hospital sitesin [place], [place], [place] and [place]. This disclosure is being madepursuant to the Care Everywhere program and may not contain all information available regarding this patient. Last updated 18.[facility] Allergies Active Allergy Reactions Criticality Noted Date [...] Hanna was screened for depression using the Ames Depression Scale (EPDS) at her [facility] initial evaluation on 03/06/2018. Her initial [...] symptoms. Recommend 3rd trimester neonatology consult at [facility] due to psychiatric medications, if [...] from the original note were not included. [facility] PATIENT--PLEASE CALL [phone] (ex 2) IF TRIAGED OR ADMITTED Care Provider: Dr. Erasmo Wood [facility] Care [place] consultants involved: RN-Rosana/Jayce; MFM-Vitor; Cleft Team-Kamila Mojica; Cardiology-Vitor Diagnosis: Cleft Lip & Palate follow up: per Cleft Team consult 9.10: Family will call to schedule a visit with the cleft palate team after the baby is born. Drafter Patent: undecided as of 04.03 Planned surveillance: Repeat ultrasound at [facility] at 32w & 36w; released from [facility] on 04.03.2018 Delivery location, mode, and GA: [facility], desires vaginal delivery Genetics note: genetic diagnostic [...] laboratory and call the genetic counselors at [phone] or [phone] to notify that specimen is ready for sendout. Order can be placed by genetic counselor in baby's chart at that time. Please request Genetics consult postnatally if clinically indicated by calling the Genetics office at [phone] prior to ordering genetic studies. Cooling Machine Operator Concerns: 03/06/18- Patient with history of [...] PM CDT Legal Sex Female 3:34 PM CARDIOPULMONARY TECHNICIAN Gender Identity Female 02/21/2024 3:10 PM CDT [...] Oxygen Concentration 21% 06/30/2018 8 :39 AM CARDIOPULMONARY TECHNICIAN Weight 74.8 kg (165 lb) 02/22/2024 10:16 [...] Reactive Non Reactive 11/24/2018 3:32 PM CDT [facility] Blood BLOOD SPECIMEN / Unknown Venipuncture / Unknown 11/24/2018 2:32 PM CDT 11/24/2018 2:35 PM CDT Narrative [facility] - 11/24/2018 3:32 PM CDT No Laboratory evidence of HIV infection. us Alondra Saxena DO LAB - CHEMISTRY ORDERAB LES Final Result [facility] [address] [place] [address] * PAP LB RFLX HPV ASCU (11/24/2018 2:32 PM CDT) Diagnosis Comment 11/29/2018 11:13 AM CDT [facility] ([facility]) Comment:NEGATIVE FOR INTRAEP ITHELIAL LESION OR MALIGNANCY. Specimen Adequacy Comment 019 11:13 AM CDT [facility] ([facility]) Comment: Satisfactory for evaluation. Endocervical and/or squamous metaplastic cells (endocervical component) are present. Performed by Comment 11/29/2018 11:13 AM CDT [facility] ([facility]) Comment:Aamir Miller chnologist (ASCP) Comment . 11/29/2018 11:13 AM CDT [facility] ([facility]) Note Comment 11/29/2018 11:13 AM CDT [facility] ([facility]) Comment: The Pap smear is a screening test designed to aid in the detection of premalignant and malignant conditions of the uterine cervix. It is not a diagnostic procedure and should not be used as the sole means of detecting cervical cancer. Both false-positive and false-negative reports do occur. Note Comment 11/29/2018 11:13 AM CDT [facility] ([facility]) Comment: The HPV DNA reflex criteria were not met with this specimen result therefore, no HPV testing was performed. Pathology/Cytolo gy ENTIRE ENDOCERVIX / Unknown Collection / Unknown 11/24/2018 2:32 PM CDT 11/25/2018 7:38 AM CDT [facility] ([facility]) - 11/29/2018 11:13 AM CDT Performed at: [address] [place] [id number] Licensed Mortgage Loan Officer: Fe Cruz MD, Phone: [phone] Specimen Comment: Source.............Cervix;Endocervix Specimen Comment: No. of containers..01 ThinPrep Vial us Alondra Saxena DO LAB - PATHOLOGY/CYTOLOG Y ORDERABLES Final Result [facility] ([facility]) [address] [place] [address] * HEPATITIS C ANTIBODY (11/24/2018 2:32 PM CDT) HCV Antibody Screen Non Reactive Non Reactive 11/24/2018 4:08 PM CDT [facility] HCV S/C Ratio 0.13 0.00 - 0.79 11/24/2018 4:08 PM CDT [facility] Comment: Zaodty-yz-ojboqk ratio (S/CO) <0.80: Non Reactive Blood BLOOD SPECIMEN / Unknown Venipuncture / Unknown 11/24/2018 2:32 PM CDT 11/24/2018 2:36 PM CDT Narrative [facility] - 11/24/2018 4:08 PM CDT Non Reactive - Antibodies to Hepatitis C virus (HCV) were not detected, result does not exclude early acute HCV infection. Alondra Saxena DO LAB - CHEMISTRY ORDERAB LES Final Result [facility] [address] [place] [address] from Last 3 Months or Most Recently Relevant to Health Maintenance Insurance MEDICAID [place] [facility] MEDICAID - OUT OF STATE Advance Directives * Full Code (Latest Code Status on File) Date Activated Date Inactivated Comments 06/28/2018 1:00 PM 06/30/2018 1:33 PM Care Teams Sales Associate Fishing Relationship Specialty Start Date End Date Mervin Kevin MD [address] [place] [address] PCP - General Family Medicine 12/29/17
--- OUTSIDE RECORDS SUMMARY | 2024-12-24 12:03 | XMS_ITS | Data Portability ---
Author Organization [place] [facility] [employer] [facility], Main Office Address [address] [place] [address] Care Team Providers Care Cytometry Technologist Name Role Phone MERVIN KEVIN Referring Provider [...] 90 mcg/actua tion aerosol inhaler 2024 025 [facility] #[id number], [address], [place], [address], 10/02/2024 12:40:21 Wixela Inhub 250 mcg-50 mcg/dose powder for inhalatio n 2024 025 [id number] [address] [place], [address], 10/02/2024 12:40:22 ipratropi um bromide 42 mcg (0.06 %) nasal spray 2024 025 [id number], [address] [place], [address], 10/02/2024 12:40:21 albuterol sulfate HFA 90 mcg/actua tion aerosol inhaler 2023 024 [facility]acy #[id number], [address] [place], [address], 01/12/2024 11:00:41 Wixela Inhub 250 mcg-50 mcg/dose powder for inhalatio n 2023 024 [facility] #[id number], [address] [place], [address], 01/12/2024 11:00:41 ipratropi um bromide 42 mcg (0.06 %) nasal spray 2023 024 [facility] #[id number], [address], [place], [address], 01/12/2024 11:00:42 albuterol sulfate HFA 90 mcg/actua tion aerosol inhaler 2022 023 [facility] #[id number], [address], [place], [address], 02/07/2023 10:06:41 ipratropi um bromide 42 mcg (0.06 %) nasal spray 2022 023 [facility]acy #[id number], [address], [place], [address], 02/07/2023 10:00:36 Patient TargetsNo targets recorded. Patient Instructions Encounter Date Encounter Id Patient Instructions Last Modified By Organization Details Last Modified Time 02/07/2023 [id number] complete PFT w/ post bronchodilator spirometry* - No auth needed Not available 01/02/2024 15:47:26 01/12/2024 [id number] complete PFT w/ post bronchodilator spirometry* [email or web address] Not available 08/13/2024 17:15:39 10/02/2024 [id number] complete PFT w/ post bronchodilator spirometry* Not available 10/02/2024 12:40:16 Reason for Referral None Reported. Results Created Date Observation Date Name Description Value Unit Range Abnormal Flag Note LastModifiedBy Organization Detail LastModifiedTime 07/28/1907/28/2022 [place], modif ied spike villafana ow study No observ ation record ed. [id number] [facility] [address] [place], [address], 08/25/2022 13:32:14 07/28/19 23 07/28/2022 CT, chest , w/o contr ast No observ ation record ed. [id number] [facility] [address] [place], [address], 08/25/2022 13:32:14 08/03/19 23 07/28/2022 [place], modif ied spike villafana ow study No observ ation record ed. [id number] [facility] (One Call Scheduling) [address] [place], [address], 08/25/2022 13:32:14 02/02/20 23 01/31/2023 compl ete PFT w/ post [facility] hodil ator michelle metry * No observ ation record ed. [facility] (One Call Scheduling) [address] [place], [address], 02/01/2023 17:29:30 10/05/19 25 10/02/2024 compl ete PFT w/ post [facility] hodil ator michelle metry * No observ ation record ed. [facility] (One Call Scheduling) [address] [place], [address], 10/04/2024 17:32:29 Result Notes None recorded. 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 Procedures Surgical History Date Name Laterality Status Provider Name and Address Organization Details Recorded Time 11/19/19 23 Hysterectomy completed Irma Mohr MA [place] [facility] [place] [facility] 02/07/2023 09:43:48 section completed Not Available [facility] 08/25/2022 13:29:35 Imaging Results None recorded. Procedure Notes None recorded. Medical Equipment None Reported. Allergies Allergen ID Allergen Name Allergen Category Reaction Reaction Severity Criticality Documentation Date Start Date Code Code System Note Provider Name and Address Organization Details Recorded Time 37262 Macrobid medicatio n Not available Not available Not available 08/25/2022 83939 1 RxNorm Not Available [facility] 13:32:12 Medications Name Sig Start Date Stop [...] 1 SPRAY 4 TIMES A DAY BY VICENTE Cruz ROUTE NEEDED. active Not Available Not Available [...] % 72 /min 15 /min 98.6 [degF] 29873.4 1 g 110 mm[Hg] 66 mm[Hg] Not Available [facility] 3 13:30:03 Date Recorded Body mass index (BMI) Heart rate Body height Oxygen saturation Oxygen saturation in Arterial blood by Pulse oximetry Heart rate Respiratory rate Body temperature Body weight Systolic blood pressure Diastolic blood pressure Provider Name and Address Organization Details Last Updated DateTime 3 26 kg/m2 61 /min 165.1 cm 97 % 97 % 61 /min 15 /min 98.2 [degF] 98112.4 1 g 108 mm[Hg] 60 mm[Hg] Not Available [facility] 3 13:30:04 Date Recorded Heart rate Respiratory rate Provider N abelino and Address Organization Details Last Updated DateTime 10/02/2024 80 /min 15 /min Ruslan Reid MD [address] [facility] [address], [place], [address], [place] [facility] 10/02/2024 12:45:32 Date Recorded Body height Body mass index (BMI) Body weight Body temperature Heart rate Oxygen saturation Oxygen saturation in Arterial blood by Pulse oximetry Systolic blood pressure Diastolic blood pressure Provider Name and Address Organization Details Last Updated DateTime 5 165.1 cm 26.6 kg/m2 31977.7 8 g 98.3 [degF] 80 /min 98 % 98 % 116 mm[Hg] 66 mm[Hg] Irma Mohr MA [facility] [employer] 5 12:20:22 Date Recorded Body height Body mass index (BMI) Body weight Oxygen saturation Oxygen saturation in Arterial blood by Pulse oximetry Body temperature Heart rate Systolic blood pressure Diastolic blood pressure Provider Name and Address Organization Details Last Updated DateTime 4 165.1 cm 25 kg/m2 44792.8 6 g 98 % 98 % 98.1 [degF] 87 /min 118 mm[Hg] 68 mm[Hg] Fabian Lowe CMA [place] [employer] [facility] [employer] 4 10:40:20 Date Recorded Heart rate Oxygen saturation Oxygen saturation in Arterial blood by Pulse oximetry Heart rate Respiratory rate Provider Name and Address Organization Details Last Updated DateTime 3 59 /min 99 % 99 % 59 /min 15 /min Ruslan Reid MD [address] [facility] [address], [place], [address], [place] [employer] [facility] [employer] 3 10:07:55 Date Recorded Body height Body mass index (BMI) Body weight Body temperature Systolic blood pressure Diastolic blood pressure Provider Name and Address Organization Details Last Updated DateTime 3 165.1 cm 25 kg/m2 12129.8 6 g 98.1 [degF] 110 mm[Hg] 68 mm[Hg] Irma Mohr MA [facility] [employer] 3 09:47:14 Social History Question Answer Notes LastModified by Organizat ion Details LastModified Time Tobacco Smoking Status Former Smoker quit 3 years ago Irma Mohr MA null, [place] [employer] [facility] [employer] 10/02/2024 12:17:03 What Is Your Level Of Caffeine Consumption? Occasional [id number] Information not available 08/25/2022 In The 14 Days Before Symptom Onset, Have You Had Close Contact With A Laboratory-confi rmed COVID-19 While That Case Was Ill? No MIGRATION.63394 [id number] Information not available 08/25/2022 In The 14 Days Before Symptom Onset, Have You Had Close Contact With A Person Who Is Under Investigation For COVID-19 While That Person Was Ill? No MIGRATION.16082 [id number] Information not available 08/25/2022 What Type Of Diet Are You Following? REGULAR MIGRATION.01364 66225 Information not available 08/25/2022 Do You Have An Electrostatic Air Filter? Yes MIGRATION.00171 00606 Information not available 08/25/2022 Are There Any Guns Present In Your Home? No MIGRATION.59447 75462 Information not available 08/25/2022 Do You Have A Humidifier? Yes MIGRATION.76089 77083 Information not available 08/25/2022 Where Do You Live? [place] MIGRATION.87710 67158 Information not available 08/25/2022 Do You Have Moisture Problems In Your Home? No MIGRATION.24181 84343 Information not available 08/25/2022 What Was The Date Of Your Most Recent Tobacco Screening? 10/02/2024 Information not available 10/02/2024 Do You Have Any Pets? Yes MIGRATION.47445 65188 Information not available 08/25/2022 Do You Use Your Seat Belt Or Car Seat Routinely? Yes Information not available 10/02/2024 Do You Have Smoke And Carbon Monoxide Detectors In Your Home? Yes MIGRATION.84768 47662 Information not available 08/25/2022 At What Age Did You Start Smoking Tobacco? 13 MIGRATION.63807 52612 Information not available 08/25/2022 Are You Passively Exposed To Smoke? No MIGRATION.22137 75667 Information not available 08/25/2022 How Much Tobacco Do You Smoke? No MIGRATION.01147 50928 Information not available 08/25/2022 Do You Use Sunscreen Routinely? No MIGRATION.07161 81242 Information not available 08/25/2022 How Many Years Have You Smoked Tobacco? 16 MIGRATION.27115 76889 Information not available 08/25/2022 Have You Recently Traveled Abroad? No MIGRATION.30778 29483 Information not available 08/25/2022 Do You Have Any Dietary Restrictions? No MIGRATION.58014 12726 Information not available 08/25/2022 Sex: Female Functional Status Question Answer Note LastModified by Organizat ion Details LastModified Time Do you use any illicit or recreational drugs? Yes marijuana MIGRATION.95722 40930 Information not available 08/25/2022 Do you or have you ever used any other forms of tobacco or nicotine? No Information not available 10/02/2024 What is your level of alcohol consumption? None MIGRATION.62658 93885 Information not available 08/25/2022 Have you been exposed to chemicals or toxins? 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 Heavy MIGRATION.95796 00249 Information not available 08/25/2022 Mental Status Question Answer Note LastModified by Organizat ion Details LastModified Time Do you feel stressed (tense, restless, nervous, or anxious, or unable to sleep at night)? [id number] [id number] Information not available 08/25/2022 Family History Relationship Description Onset Age of this Age Resolved Age Notes LastModified by Organization Details LastModified Time Father Family history of malignant neoplasm [id number].550 [id number] Not available 08/25/2022 13:29:36 Father Blood coagulation disorder MIGRATION.329 [id number] Not available 08/25/2022 13:29:36 Father Diabetes mellitus MIGRATION.755 [id number] Not available 08/25/2022 13:29:36 Father Chronic obstructive pulmonary disease MIGRATION.835 [id number] Not available 08/25/2022 13:29:36 Brother Asthma MIGRATION.768 [id number] Not available 08/25/2022 13:29:36 Sister Asthma MIGRATION.912 [id number] Not available 08/25/2022 13:29:36 Paternal Grandmother Asthma MIGRATION.057 [id number] Not available 08/25/2022 13:29:36 Maternal Grandmother Asthma MIGRATION.622 [id number] Not available 08/25/2022 13:29:36 Medical History Condition [...] HAVE YOU BEEN HOSPITALIZED OR SEEN IN [facility] IN THE PAST YEAR ? [...] mcg/0.3 mL dose 04/20/2021 completed Not Available [facility] 4 17:07:19 COVID-19, mRNA, LNP-S, PF, 30 mcg/0.3 mL dose 03/30/2021 completed Not Available [facility] 4 17:07:19 Past Encounters Encounter ID Performer Location Encounter Start Date Encounter Closed Date Diagnosis/Indication Diagnosis SNOMED-CT Code Diagnosis ICD10 Code Diagnosis Note [id number] MD CLAUDIA Houston_GMD[facility] [address] [address] 04/09/2021 00:00:00 04/09/2021 09:36:09 [id number] MD JOSSUE Houston [address] [address] 04/23/2021 00:00:00 04/23/2021 11:07:07 [id number] MD CLAUDIA Preciado_GMDena [place] [address] [place] [address] 10/08/2021 00:00:00 10/08/2021 15:19:33 [id number] MD CLAUDIA Preciado_GMG [address] [address] 10/22/2021 00:00:00 10/22/2021 15:34:32 [id number] MD CLAUDIA Preciado_[facility] [place] [address] [address] 04/22/2022 00:00:00 04/22/2022 13:17:16 [id number] MD JOSSUE Preciado [address] [address] 07/15/2022 00:00:00 07/15/2022 16:05:23 [id number] MD JOSSUE Preciado [address] [address] 08/05/2022 00:00:00 08/05/2022 15:35:19 [id number] MD CLAUDIA Preciado_GMDena [place] [address] [address] 02/07/2023 09:27:31 02/08/2023 10:11:10 Posterior rhinorrhea 47851528 R09.82 Severe per sistent asthma 507693054 J45.50 [id number] MD CLAUDIA Preciado_GMG [place] [address] [address] 01/12/2024 10:29:39 01/13/2024 08:21:56 Severe persistent asthma 319187803 J45.50 Posterior rhinorrhea 758 64405 R09.82 [id number] Karie Juares NP [facility] [address] [place] [address] 07/05/2024 14:05:19 07/05/2024 17:28:27 [id number] Karie Juares NP [facility] [address] [address] 08/02/2024 14:32:51 08/02/2024 15:49:42 [id number] Ruslan Reid MD [facility] [place] [address] [facility] [address] [place] [address] 10/02/2024 11:57:56 10/03/2024 13:12:21 Severe persistent asthma 424601193 J45.50 Posterior rhinorrhea 758 34017 R09.82 Health Concerns Section Related Observation LastModified by Organization Detai ls LastModified Time None Recorded Concern Status LastModified by Organization Details LastModified Time None Recorded Advance Directives Directive None Recorded Payers Insurance Date Sequence Insurance Name Policy Number Policy Barrett Covered Member ID Barrett Member ID Guarantor Name 10/02/2024 1 [place] [id number] 1 [place] D [place] [id number] Yu D Daniel 12/01/2024 1 [place] [facility] PUBLIC AID [place] D [place] [id number] Yu D Daniel 10/30/2024 2 [place] [id number] 1 [place] D [place] [id number] [place] Notes Date Note Type Note [...] 20 lbs objectsAlleviating factors: restModified [facility] [place] (mMRC) Dyspnea Scale - Grade 2Grade 0 [...] chance of dozing. Ruslan Reid MD [address] [facility] [address], [place], [address], [place] [employer] 08/17/2023 14:56:20 01/12/2024 text/html Primary care/Ref erring provider: Mervin Kevin, MDPatient is here to go over her asthma management.Initial development of shortness of breath: 2005Duration of shortness of breath: 19 yearsCondition of shortness of breath: stableTiming of shortness of breath: morning and bedtimeFrequency: up to 10 times a dayLimits activities: yesAggravating factors: walking, lifting 20 lbs objectsAlleviating factors: restModified [employer] [place] (mMRC) Dyspnea Scale - Grade 2Grade 0 [...] moderate chance of dozing. Ruslan Reid MD [address] [place] [address] [address], [place], [address], [facility] [employer] 01/12/2024 11:03:36 10/02/2024 text/html Primary care/Ref erring provider: Mervin Kevin [facility] here to go over her asthma management.Initial development of shortness of breath: 2005Duration of shortness of breath: 20 yearsCondition of shortness of breath: stableTiming of shortness of breath: morning and bedtimeFrequency: up to 8 times a dayLimits activities: yesAggravating factors: walking, lifting 20 lbs objectsAlleviating factors: restModified [employer] [place] (mMRC) Dyspnea Scale - Grade 2Grade 0 [...] chance of dozing. Ruslan Reid MD [address] [address], [place], [address], [place] - [facility] [employer] 10/02/2024 12:46:55 OBGyn Episode No OBEpisode recorded.
--- OUTSIDE RECORDS SUMMARY | 2024-12-24 12:03 | XMS_ITS | Referral Summary ---
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 Name Role Phone Mervin Kevin MD Primary Care Provider Allergies Active Allergy Reactions Criticality Noted Date Comments Nitrofurantoin Anaphylaxis High 12/29/2017 Social History Tobacco Use Types Packs/Day Years Used Date Smoking Tobacco: Every Day Cigarettes Smokeless Tobacco: Never Personal Safety Answer Date Recorded Getting School Help Needed Not on file 08/21 Comments No Sex and Gender Information Value Date Recorded Sex Assigned at Not on file Legal Sex Female 4:55 AM [employer] Gender Identity Not on file Sexual Orientation [...] of Treatment Not on file Care Teams Tumble Tailstock Turret Lathe Operator Relationship Specialty Start Date End Date Mervin Kevin MD PCP - General Emergency Medicine 02/22/22
--- OUTSIDE RECORDS SUMMARY | 2024-12-24 12:03 | XMS_ITS | Clinical Summary ---
Author Organization [facility] Address [address] [place] [address] Phone Care Team Providers Care [employer] Name Role Phone Mervin Kevin MD Primary Care Provider [phone] Allergies Active Allergy Reactions Criticality Noted Date Comments Nitrofurantoin Other (see Comments) High 10/23/2021 Medications fluticasone (FLONASE) 50 MCG/ACT Suspension 2 Sprays by Nasal route daily. Active albuterol 108 (90 Base) MCG/ACT Aerosol Solution take 1 Puff by inhalation every 4 hours as needed for Wheezing. 8 Active ergocalciferol (VITAMIN D) 06306 UNIT Capsule Take 1.25 mg by mouth [...] HR Take 50 mg by mouth daily. 2 Active diphenhydrAMINE (BENADRYL) 25 MG Capsule Take 25 mg by mouth every 6 hours as needed for Allergies. Active Active Problems Problem Noted Date Diagnosed Date Nodule of right lung 11/21/2024 History of iron deficiency 11/21/2024 Persistent atrial fibrillation 11/21/2024 Chronic bronchitis 11/21/2024 History of systemic lupus erythematosus (SLE) Encounters Date Type Department Care Team Description 12/20/2024 7:00 AM CDT - 12/20/2024 11:59 PM CDT [facility] [address] [place] [address] Cinthia Noriega, WAREHOUSE DRIVER, ENTRY PROCESSOR Discharge Disposition: Discharged to home or Selfcare 12/20/2024 6:00 AM CDT - 12/20/2024 6:59 AM CDT [facility] [address] [place] [address] Mervin Kevin MD Discharge Disposition: Discharged to home or Selfcare 12/20/2024 Travel 12/18/2024 Transcribe Orders [facility] [address] [place] [address] [place] [address] Mervin Kevin MD Liver lesion (Primary Dx) 12/17/2024 [facility] [address] [place] [address] Cinthia Noriega, WAREHOUSE DRIVER, ENTRY PROCESSOR 12/03/2024 1:50 PM CDT - 12/03/2024 11:59 PM CDT [facility] CT [address] [place] [address] Wili Solomon MD Discharge Disposition: Discharged to home or Selfcare 12/03/2024 Travel 11/23/2024 1:48 PM CDT - 11/23/2024 11:59 PM CDT [facility] [address] [place] [address] Provider, Not On File Discharge Disposition: Discharged to home or Selfcare 11/23/2024 1:45 PM CDT - 11/23/2024 1:47 PM CDT [facility] [address] [place] [address] Provider, Not On File Discharge Disposition: Discharged to home or Selfcare 11/21/2024 9:40 AM CDT Office Visit [facility] Oncology Services [address] [place] [address] Wili Solomon MD Nodule of right lung [...] 2 - PCV) 09/02/2023 09/01/2022 SARS-COV-2 Immunization (4 - season) 2024 10/09/2021, 04/20/2021, 03/30/2021 Influenza [...] Date/Time Associated Diagnosis Comments POCT CREATININE Routine 12/20/2024 8:06 AM CDT XR ORBITS FOR FOREIGN BODY STAT 12/20/2024 7:15 AM CDT Liver lesion CT CHEST W CONTRAST Routine 12/03/2024 2 :17 PM CDT Nodule of right lung POCT CREATININE Routine 12/03/2024 2:[address] REFERENCE IMAGES FOR IMAGE IMPORT Routine 11/23/2024 1:[address] REFERENCE IMAGES FOR IMAGE IMPORT Routine 11/23/2024 1:45 PM CDT from Last 3 Months Results * POCT Creatinine (12/20/2024 8:06 AM CDT) Only the most recent of2 resultswithin the time period is included. CREATININE - POCT 0.8 0.6 - 1.3 mg/dL 12/20/2024 8:08 AM CDT [facility] Blood 12/20/2024 8:06 AM CDT 12/20/2024 8:08 AM CDT us None Provider POINT OF CARE TESTING Final Resu lt [facility] [address] [place] [address] * XR ORBITS FOR FOREIGN BODY (12/20/2024 7:15 AM CDT) Anatomical Region Laterality Modality Head, Jaw region N/A Digital Radiogr aphy 12/20/2024 7:53 AM CDT Impressions 12/20/2024 7:55 AM CDT IMPRESSION: Negative study of the orbits. No radio-opaque foreign body. Narrative 12/20/2024 7:55 AM CDT EXAM DESCRIPTION: XR ORBITS FOR FOREIGN BODY REASON FOR STUDY: Clearance for abdomen MRI TECHNIQUE: 2 views of the orbits. COMPARISON: No comparison FINDINGS: ORBITS: No acute fracture or osseous abnormalities. No foreign body. SINUSES: No mucosal thickening. No air fluid levels. FACIAL BONES: No acute fracture or osseous abnormalities. THIS IS AN ELECTRONICALLY VERIFIED FINAL REPORT 12/20/2024 7:53 AM - Electronically signed by Addison Villalta M.D. LC: RK Report ID: [id number] Reading Location: [id number] Procedure Note Celeste Villalta MD - 12/20/2024 EXAM DESCRIPTION: XR ORBITS FOR FOREIGN BODY REASON FOR STUDY: Clearance for abdomen MRI TECHNIQUE: 2 views of the orbits. COMPARISON: No comparison FINDINGS: ORBITS: No acute fracture or osseous abnormalities. No foreign body. SINUSES: No mucosal thickening. No air fluid levels. FACIAL BONES: No acute fracture or osseous abnormalities. THIS IS AN ELECTRONICALLY VERIFIED FINAL REPORT 12/20/2024 7:53 AM - Electronically signed by Addison Villalta M.D. LC: RK Report ID: [id number] Reading Location: [id number] IMPRESSION: Negative study of the orbits. No radio-opaque foreign body. Mervin Kevin MD IMG DIAGNOSTIC ORDERABLES Final Result * CT CHEST W CONTRAST (12/03/2024 2:17 PM CDT) Anatomical Region Laterality Modality Chest N/A Computed Tomogra phy 12/14/2024 12:2 6 PM CDT Impressions 12/14/2024 12:28 PM CDT IMPRESSION: 1. The right mainstem bronchus soft tissue focus described on the chest CT from an outside institution dated 09/23/2024 is no longer identified and was likely thickened secretions. 2. There is new similar thickened secretions in the proximal thoracic trachea. 3. Right middle lobe patchy opacity is new in the interval and could reflect atelectasis or an infectious/inflammatory process. Attention on follow-up chest CT in 3 months time. 4. A few less than 6 mm bilateral pulmonary nodules in retrospect are similar when compared to the previous chest CT. Fleischner society guidelines for follow-up do not apply to a patient of this age. These can be reassessed on the three-month follow-up as noted above. 5. On the last image of the liver is a 2-3 mm enhancement which could be a partially imaged vessel but not completely characterized. If there is concern for a true enhancing lesion then dedicated liver protocol CT or MRI could be obtained. Narrative 12/14/2024 12:28 PM CDT EXAM DESCRIPTION: CT CHEST W CONTRAST REASON FOR STUDY: 09/23/24- cta showed 7 mm nodule right main bronchus. 20lb wt loss x 4 months. Hx lupus, COPD,asthma and former smoker. TECHNIQUE: CT scan of the chest performed with intravenous contrast using helical scanning technique with dynamic intravenous contrast injection. Reconstructed coronal and sagittal MPR images reviewed. All images stored on PACS. Automated exposure control was used as a dose optimization technique for this examination. CONTRAST TYPE/DOSE: 100mL of IOPAMIDOL 76 % IV SOLN injected via Intravenous COMPARISON: Chest CT and chest radiograph from an outside institution dated 09/23/2024. FINDINGS: LUNGS: The right mainstem bronchus focus noted on the prior chest CT from an outside institution dated 09/23/2024 is no longer identified and likely thickened secretions. New similar focus in the right posterior wall of the proximal thoracic trachea (series 2, image 26). Small pulmonary nodules in retrospect are similar when compared to the previous chest CT from an outside institution dated 09/23/2024. For example right upper lobe lateral margin 2 mm (series 2, image 51), right lower lobe anterior margin 2 mm (series 2, image 60), right lower lobe lateral margin subpleural 2 mm (series 2, image 67), left upper lobe anterior/medial margin 2 mm (series 2, image 58), left lower lobe lateral margin 2 mm (series 2, image 78) and left lower lobe lateral margin 3 mm (series 2, image 79). Patchy opacity in the medial margin of the right middle lobe is new in the interval. PLEURA: No effusion. No pneumothorax. MEDIASTINUM/FLORENCIA: A few nonspecific subcentimeter mediastinal lymph nodes are again seen. HEART: The heart is similar in size. VASCULATURE: The thoracic aorta is nonaneurysmal. AXILLA: No adenopathy. CHEST WALL: There is no subcutaneous emphysema. The right chest wall medial margin 0.5 cm subcutaneous low-attenuation focus (series 2, image 42) is nonspecific but similar in size when compared to the previous chest CT dated 09/23/2024. Please correlate with physical examination. HARDWARE/LINES/TUBES: None. UPPER ABDOMEN: The adrenal glands are symmetric. Lateral margin of the right hepatic lobe subtle 2-3 mm enhancement (series 2, image 131) could just be partially imaged vessel. MUSCULOSKELETAL: The thoracic vertebral body heights are maintained. No high-grade osseous thoracic spinal canal stenosis. THIS IS AN ELECTRONICALLY VERIFIED FINAL REPORT 12/14/2024 12:26 PM - Electronically signed by Tyler Pimentel D.O. AP: AP Report ID: [id number] Reading Location: [id number] Procedure Note Tyler Pimentel, DO - 12/14/2024 EXAM DESCRIPTION: CT CHEST W CONTRAST REASON FOR STUDY: 09/23/24- cta showed 7 mm nodule right main bronchus. 20lb wt loss x 4 months. Hx lupus, COPD,asthma and former smoker. TECHNIQUE: CT scan of the chest performed with intravenous contrast using helical scanning technique with dynamic intravenous contrast injection. Reconstructed coronal and sagittal MPR images reviewed. All images stored on PACS. Automated exposure control was used as a dose optimization technique for this examination. CONTRAST TYPE/DOSE: 100mL of IOPAMIDOL 76 % IV SOLN injected via Intravenous COMPARISON: Chest CT and chest radiograph from an outside institution dated 09/23/2024. FINDINGS: LUNGS: The right mainstem bronchus focus noted on the prior chest CT from an outside institution dated 09/23/2024 is no longer identified and likely thickened secretions. New similar focus in the right posterior wall of the proximal thoracic trachea (series 2, image 26). Small pulmonary nodules in retrospect are similar when compared to the previous chest CT from an outside institution dated 09/23/2024. For example right upper lobe lateral margin 2 mm (series 2, image 51), right lower lobe anterior margin 2 mm (series 2, image 60), right lower lobe lateral margin subpleural 2 mm (series 2, image 67), left upper lobe anterior/medial margin 2 mm (series 2, image 58), left lower lobe lateral margin 2 mm (series 2, image 78) and left lower lobe lateral margin 3 mm (series 2, image 79). Patchy opacity in the medial margin of the right middle lobe is new in the interval. PLEURA: No effusion. No pneumothorax. MEDIASTINUM/FLORENCIA: A few nonspecific subcentimeter mediastinal lymph nodes are again seen. HEART: The heart is similar in size. VASCULATURE: The thoracic aorta is nonaneurysmal. AXILLA: No adenopathy. CHEST WALL: There is no subcutaneous emphysema. The right chest wall medial margin 0.5 cm subcutaneous low-attenuation focus (series 2, image 42) is nonspecific but similar in size when compared to the previous chest CT dated 09/23/2024. Please correlate with physical examination. HARDWARE/LINES/TUBES: None. UPPER ABDOMEN: The adrenal glands are symmetric. Lateral margin of the right hepatic lobe subtle 2-3 mm enhancement (series 2, image 131) could just be partially imaged vessel. MUSCULOSKELETAL: The thoracic vertebral body heights are maintained. No high-grade osseous thoracic spinal canal stenosis. THIS IS AN ELECTRONICALLY VERIFIED FINAL REPORT 12/14/2024 12:26 PM - Electronically signed by Tyler Pimentel D.O. AP: AP Report ID: [id number] Reading Location: [id number] IMPRESSION: 1. The right mainstem bronchus soft tissue focus described on the chest CT from an outside institution dated 09/23/2024 is no longer identified and was likely thickened secretions. 2. There is new similar thickened secretions in the proximal thoracic trachea. 3. Right middle lobe patchy opacity is new in the interval and could reflect atelectasis or an infectious/inflammatory process. Attention on follow-up chest CT in 3 months time. 4. A few less than 6 mm bilateral pulmonary nodules in retrospect are similar when compared to the previous chest CT. Fleischner society guidelines for follow-up do not apply to a patient of this age. These can be reassessed on the three-month follow-up as noted above. 5. On the last image of the liver is a 2-3 mm enhancement which could be a partially imaged vessel but not completely characterized. If there is concern for a true enhancing lesion then dedicated liver protocol CT or MRI could be obtained. us Wili Solomon MD IMG CT ORDERABLES Final Result * CT REFERENCE IMAGES FOR IMAGE IMPORT (11/23/2024 1:48 PM CDT) Only the most recent of2 resultswithin the time period is included. us Not On File Provider IMG CT ORDERABLES Final Res ult from Last 3 Months Insurance MEDICAID [place] Care Teams [employer] Relationship Specialty Start Date End Date Mervin Kevin MD [address] [place] [id number] PCP - General Family Medicine 11/21/24
--- OUTSIDE RECORDS SUMMARY | 2024-12-24 12:03 | XMS_ITS | Clinical Summary ---
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
--- OUTSIDE RECORDS SUMMARY | 2024-12-24 12:03 | XMS_ITS | Continuity of Care Document ---
Author Organization [facility] Address [address] [address] Phone Care Team Providers Care Machine Cementer Name Role Phone Pinky Daniels MD Unavailable [...] [facility], [address], [id number], [place] tel:[phone] [facility] No Information [address], [place], [address], [place]. tel:[phone] Referring Provider: Mervin Kevin, [address] [place] [address], [address]. tel:[phone] Est (Level 4) OFFICE/OUTPA TIENT VISIT [facility], [address] [place] [address], [id number], [place] tel:[phone] [facility] allergy symptoms (chief complaint) Recurrent acute suppurative otitis media w/o spontaneous rupture of ear drum of earOther allergic rhinitisSevere persistent asthmaAbnormal results of function studies of other [facility] [address], [place], [address], [place]. tel:[phone] Referring Provider: Mervin Kevin, [address] [place] [address], [address]. tel:[phone] Est (Level 3) OFFICE/OUTPA TIENT VISIT [facility], [address] [place] [address], [id number], [place] tel:[phone] [facility] recurrent infections (chief complaint) Recurrent acute suppurative otitis media w/o spontaneous rupture of ear drum of earOther allergic rhinitisSevere persistent asthmaAbnormal results of function studies of other systems [address], [place], [address], [place]. tel:[phone] Referring Provider: Ruslan Reid, [address] [facility] [address], [place], [address]. tel:[phone] Est (Level 4) OFFICE/OUTPA TIENT VISIT [facility], [address] [place] [address], [id number], [place] tel:[phone] [facility] recurrent infections (chief complaint) Recurrent acute suppurative otitis media w/o spontaneous rupture of ear drum of earSevere persistent asthmaOther allergic rhinitisAbnorma l results of function studies of other systems [address], [place], [address], [place]. tel:[phone] Referring Provider: Ruslan Reid, [address] [facility] [address], [place], [address]. tel:[phone] New (Level 4) OFFICE/OUTPA TIENT VISIT [facility], [address] [place] [address], [id number], [place] tel:[phone] [facility] recurrent infections (chief complaint) Recurrent acute suppurative otitis media w/o spontaneous rupture of ear drum of earSevere persistent asthmaOther allergic rhinitis Fe-0 3 [address], [place], [address], [place]. tel:[phone] Referring Provider: Ruslan Reid, [address] [facility] [address], [place], [address]. tel:[phone] Family History Family Member Type Diagnosis Age At Onset Paternal aunt Problem rheumatoid arthritis Father Problem Allergic rhinitis Brother Problem Asthma Paternal aunt Problem Lupus erythematosus Sister Problem Asthma Paternal grandmother Problem Asthma Payers Payer name Insurance type Covered republican ID Authoriza timunir(s) [facility] [id number] Social History Type Description Quantity Date Captured Comments Alcohol Use Details Unknown Caffeine Use Details Unknown Tobacco Use Status No Information Smoking Status No Information Sex Female Chief Complaint And Reason For Visit No Information Reason For Referral Reason For Referral No Information Plan Of Treatment Date Type Action Status Future Order: Lab Order S. Pneum onia-23 Serotypes (98433), Sent on: Sent Future Order: Lab Order CBC With Diff ([id number]), Sent on: Sent Future Order: Lab Order ESR (809), Sent o n: Sent Future Order: Lab Order CRP ([id number]), Sent on: Sent Future Order: Lab Order Comprehe nsive Metabolic Panel ([id number]), Sent on: Sent Future Order: Lab Order CBC With Differential ([id number]), Sent on: Sent Future Order: Lab Order Compleme nt Total (CH50) ([id number]), Sent on: Sent Future Order: Lab Order Immunogl obulins A/E/G/M, Serum ([id number]), Sent on: Sent Future Order: Lab Order Mannose Binding Lectin ([id number]), Sent on: Sent Future Order: Lab Order Strep Pn eumo 23 ([id number]), Sent on: Sent Future Order: Lab Order T- and B -Lymphocyte and Natural Killer Cell Profile ([id number]), Sent on: Sent Future Order: Lab Order Tetanus/ Diphtheria Antibody Profile ([id number]), Sent on: Sent History Of Present Illness [...] protective(She had Pneumovax on 09/02/22)08/12/22IgIgA: 126IgM: 79IgE: 951RZ49: 58AH50: (deferred)Anti-Spn 23: decreased 02/16 = 65% protectiveAnti-Diphtheria: 0.1 (protective)Anti-Tetanus: 1.17 (protective)AEC: 215AANC: 16,641Flow CytometryCD3+: 56% (L), 1612 (wnl)CD3+CD4+: 35%, 4586TC0+CD8+: 26%, 772CD4/CD8 Ratio: 1.33CD16+CD56+: 32% (H), 912 (H)CD19+: 10%, (poor scan quality, best interpretation listed)IgG 995*IgG1 594*IgG2 270*IgG3 74*IgG4 74Environmental Immunocaps: +HDM, cockroach, grass, trees, weeds other than ragweed with total IgE 411E7LY Phenotype: PI*MMTB Quant Gold: negativeHRCT Chest on [...] are planning a colonoscopy future.Data08/12/22IgIgA: 126IgM: 79IgE: 942YW81: 58AH50: (deferred)Anti-Spn 23: decreased 02/16 = 65% protectiveAnti-Diphtheria: 0.1 (protective)Anti-Tetanus: 1.17 (protective)AEC: 215AANC: 16,641Flow CytometryCD3+: 56% (L), 1612 (wnl)CD3+CD4+: 35%, 3226CK7+CD8+: 26%, 772CD4/CD8 Ratio: 1.33CD16+CD56+: 32% (H), 912 (H)CD19+: 10%, (poor scan quality, best interpretation listed)IgG 995*IgG1 594*IgG2 270*IgG3 74*IgG4 74Environmental Immunocaps: +HDM, cockroach, grass, trees, weeds other than ragweed with total IgE 580L3TH Phenotype: MMTB Quant Gold: negativeHRCT Chest on [...] will see hematology next month.Data08/12/22IgIgA: 126IgM: 79IgE: 768RP27: 58AH50: (deferred)Anti-Spn 23: decreased 02/16 = 65% protectiveAnti-Diphtheria: 0.1 (protective)Anti-Tetanus: 1.17 (protective)AEC: 215AANC: 16,641Flow CytometryCD3+: 56% (L), 1612 (wnl)CD3+CD4+: 35%, 3915PQ3+CD8+: 26%, 772CD4/CD8 Ratio: 1.33CD16+CD56+: 32% (H), 912 (H)CD19+: 10%, (poor scan quality, best interpretation listed)IgG 995*IgG1 594*IgG2 270*IgG3 74*IgG4 74Environmental Immunocaps: +HDM, cockroach, grass, trees, weeds other than ragweed with total IgE 448N5FU Phenotype: MMTB Quant Gold: negativeHRCT Chest on [...] weeds other than ragweed with total IgE [id number] Phenotype: MMTB Quant Gold: negativeHRCT Chest on [...]
--- OUTSIDE RECORDS SUMMARY | 2024-12-24 12:03 | XMS_ITS | Clinical Summary ---
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
[2024-12-24 12:12] VITALS: BP 100/63; PULSE 63; RESP 15; TEMP 36.8; O2SAT 100
--- NOTE | 2024-12-24 15:33 | ED.ABDPAIN ---
HPI - Abdominal Pain General Chief Complaint: Abdominal Pain <Skylar Souza APRN - Last Filed: 12/24/24 15:37> Stated Complaint: Upper abd pain x 5 days <Skylar Souza APRN - Last Filed: 12/24/24 15:37> Time Seen by Provider: 12/24/24 15:30 <Skylar Souza APRN - Last Filed: 12/24/24 15:37> Focused HPI: Patient is a 34-year-old female who presents to the ER with complaints of ?liver pain. She reports her abdominal pain has been going on for approximately 4 months but it got exceptionally worse over the past 5 days. She reports the pain radiates to her back around her ribcage. Patient also endorses lower extremity edema and diarrhea. She denies any chest pain, recent fevers, or urinary symptoms. GENERAL: Well-appearing, well-nourished, and in no acute distress. HEAD: Normocephalic, atraumatic. CHEST: Clear to auscultation. ?No respiratory distress. HEART: Regular rate and rhythm.? NEURO: ?Alert and oriented x3. Tearful ABD: - Hernandez's sign, + pain LUQ with palpation, + BS Patient screened in triage and initial orders placed.? ?Additional care and disposition to be based upon?diagnostic testing and treatment. <Skylar Souza APRN - Last Filed: 12/24/24 15:37> History of Present Illness HPI narrative: Agree with the HPI above <Bryan Bartholomew MD - Last Filed: 12/24/24 22:09> Related Data Home Medications: Home Medications ?Medication ?Instructions ?Recorded ?Confirmed ?Last Taken ?Type budesonide-formoterol HFA 160 2 puff inhalation BID 11/09/19 10/29/24 Unknown History mcg-4.5 mcg/actuation aerosol inhaler (Symbicort) duloxetine 60 mg capsule,delayed 60 mg PO DAILY 11/09/19 10/29/24 Unknown History release vitamin B complex (B 1 tablet PO DAILY 11/09/19 10/29/24 Unknown History Complex-Vitamin B12 tablet) albuterol sulfate 90 mcg/actuation 1 puff inhalation Q4-6H PRN 09/10/22 10/29/24 Unknown History aerosol inhaler Shortness Of Breath Or Wheezing metoprolol succinate 50 mg 50 mg PO HS 09/10/22 10/29/24 Unknown History tablet,extended release 24 hr blood-gluc meter-wrist BP mntr 09/17/22 10/29/24 Unknown History (2Tek Glucose/Blood Pressure kit) fluticasone propionate 50 1 spray intranasal DAILY 09/17/22 10/29/24 Unknown History mcg/actuation nasal spray,suspension (Flonase Allergy Relief) ergocalciferol (vitamin D2) 1,250 50,000 mcg PO WEEKLY 10/04/22 10/29/24 Unknown History mcg (50,000 unit) capsule cyclobenzaprine 10 mg tablet 10 mg PO HS 10/13/22 10/29/24 Unknown History ferrous sulfate 325 mg (65 mg 325 mg PO BID 10/13/22 10/29/24 Unknown History iron) tablet sumatriptan succinate 25 mg tablet mg PO 12/06/22 10/29/24 Unknown History calcium carbonate (Calcium 600) 600 mg PO DAILY 08/10/23 10/29/24 Unknown History aspirin 81 mg chewable tablet 81 mg PO DAILY 09/23/23 10/29/24 Unknown History diazepam 10 mg tablet 10 mg PO QHS PRN 10/29/24 10/29/24 Unknown History <Skylar Souza APRN - Last Filed: 12/24/24 15:37> Allergies/Adverse Reactions: Allergies Allergy/AdvReac Type Severity Reaction Status Date / Time nitrofurantoin (From Allergy Severe Swelling Verified 11/08/24 10:23 Macrobid) of Lip/Tongue/Throat <Skylar Souza APRN - Last Filed: 12/24/24 15:37> Review of Systems Review of Systems: As reviewed above in HPI <Bryan Bartholomew MD - Last Filed: 12/24/24 22:09> [facility] Past Medical History Medical History: Medical History Depression with anxiety Ulcer Chronic obstructive pulmonary disease HSV-2 infection HSV-1 infection Irritable bowel syndrome with constipation Gastroesophageal reflux disease Esophagitis Anemia Bipolar 1 disorder <Skylar Souza APRN - Last Filed: 12/24/24 15:37> Surgical History Surgical History: Surgical History History of cardiac catheterization History of gynecologic surgery (10/2022) Laparoscopic bilateral salpingectomy Hysterectomy Dilation and curettage Endometrial ablation H/O hand surgery History of delivery x2 <Skylar Souza, HARD METALS ENGRAVER HAND - Last Filed: 12/24/24 15:37> Family History Family History: Family History Father Diabetes mellitus Heart disease <Skylar Souza, HARD METALS ENGRAVER HAND - Last Filed: 12/24/24 15:37> Social History Social History: Social History Social History: Surrogate medical decision maker: Code status: Full code. Smoking packs per day: 1.5 Smoking cigarettes per day: 30.0 Years smoked: 15 Smoking pack-years: 22.50 Smoking status: Former smoker Tobacco type: cigarettes Smoking end date: 03/27/22 Alcohol intake: current Alcohol use details: Rare alcohol use in moderation. Substance use: current Substance use type: marijuana Do You Feel Safe in your Home?: Yes Lack of Transportation: No Lack of Food: Never True Current Housing: I Have Housing Concerned About Future Housing: No Difficulty Paying Gas/Electric Bills: YES Difficulty Paying for Meds: No Currently Unemployed: No Education: High School Diploma/GED Difficulty w/ Childcare or Family Care: No Living arrangements: with family Occupation/Education: occupation Spiritual care concerns: No <Skylar Souza, HARD METALS ENGRAVER HAND - Last Filed: 12/24/24 15:37> Exam Narrative: GENERAL: [Well-appearing, well-nourished, and in no acute distress.] HEAD: [Normocephalic, atraumatic.] EYES: [PERRLA and EOMI.] ENT: Nares clear, no rhinorrhea or epistaxis. Mucous membranes moist. NECK: Supple. CHEST: [Clear to auscultation. No respiratory distress.] HEART: [Regular rate and rhythm]. No murmur heard. [Normal peripheral pulses.] ABDOMEN: [Soft, nondistended], tender to palpation in the right upper quadrant with positive Hernandez sign, [No rigidity or guarding] EXTREMITIES: Normal range of motion. [No edema.] SKIN: Warm, dry, no rash. NEURO: [No focal deficits]. Alert and oriented [x3.] PSYCH: [Normal mood and affect.] <Bryan Bartholomew MD - Last Filed: 12/24/24 22:09> Course Vital Signs Vital signs: Vital Signs Temperature 36.8 C 12/24/24 12:12 Pulse Rate 63 12/24/24 12:12 Respiratory Rate 15 12/24/24 12:12 Blood Pressure 100/63 12/24/24 12:12 Pulse Oximetry 100 12/24/24 12:12 Oxygen Delivery Room Air 12/24/24 12:12 Temperature 36.6 C 12/24/24 21:00 Pulse Rate 56 L 12/24/24 21:00 Respiratory Rate 18 12/24/24 21:00 Blood Pressure 114/66 12/24/24 21:00 Pulse Oximetry 100 12/24/24 21:00 Oxygen Delivery Room Air 12/24/24 12:12 <Skylar Souza, HARD METALS ENGRAVER HAND - Last Filed: 12/24/24 15:37> Vital Signs Temperature 36.8 C 12/24/24 12:12 Pulse Rate 63 12/24/24 12:12 Respiratory Rate 15 12/24/24 12:12 Blood Pressure 100/63 12/24/24 12:12 Pulse Oximetry 100 12/24/24 12:12 Oxygen Delivery Room Air 12/24/24 12:12 Temperature 36.6 C 12/24/24 21:00 Pulse Rate 56 L 12/24/24 21:00 Respiratory Rate 18 12/24/24 21:00 Blood Pressure 114/66 12/24/24 21:00 Pulse Oximetry 100 12/24/24 21:00 Oxygen Delivery Room Air 12/24/24 12:12 <Bryan Bartholomew MD - Last Filed: 12/24/24 22:09> MDM - Abdominal Pain MDM Narrative Medical decision making narrative: 34-year-old female presenting to the ER for upper abdominal and right upper quadrant pain for last 5 days and concerns about her liver. Denies any heavy drinking or any alcohol use. States that she is having pain in her upper abdomen that hurts with deep breathing. Endorses pain worsening when she eats or drinks anything and this is been going on for last 4 months but worsening over last 5 days. No nausea, vomiting, diarrhea, chest pain, shortness a breath, back pain. No trauma or injury. No history of gallstones to her knowledge. She has normal vital signs but does have a tender abdomen the right upper quadrant with positive Hernandez sign which raises suspicion for potential gallbladder or biliary pathology. Right upper quadrant ultrasound and laboratory studies were ordered including CBC, CMP, lipase and she was given fluids and pain and symptom controlling medications. Workup shows slight leukocytosis 11.3, normal platelet count, normal hemoglobin. Electrolytes are unremarkable. Normal renal function, normal hepatic function, normal glucose. Normal lipase. Urinalysis is unremarkable. Negative . Urine drug screen positive for cannabinoids. Ultrasound was limited without any acute findings. CT was ordered at this time for further evaluation. CT scan shows acute appearing portal venous thrombosis involving the splenic vessels as well. Hepatomegaly is seen and mild esophagitis. Patient was re-evaluated in feeling better after pain control medications and we discussed her CT findings at bedside. She has a family history of possible blood disorder but no personal history of blood clots in herself. Does not have any risk factors such as control use or drug use. She was started on low-molecular weight heparin with Lovenox 1 milligram/kilogram injection and a consult was placed to General surgery routinely and we discussed the case with hospitalist team for admission. Hospitalist service has accepted the patient to the hospital under telemetry monitored bed and patient was comfortable with admission at this time. <Bryan Bartholomew MD - Last Filed: 12/24/24 22:09> Medical Records Attestation: I reviewed the patient's medical records. <Bryan Bartholomew MD - Last Filed: 12/24/24 22:09> Lab Data Attestation: I reviewed the patient's lab results. <Bryan Bartholomew MD - Last Filed: 12/24/24 22:09> Result diagrams: 12/24/24 15:44 12/24/24 15:44 <Skylar Souza APRN - Last Filed: 12/24/24 15:37> Labs: Lab Results 12/24/24 12/24/24 Range/Units 15:44 15:47 WBC 11.3 H (4.5-10.0) K/mm3 RBC 4.92 (4.2-5.4) M/mm3 Hgb 13.9 (12.0-15.0) g/dL Hct 44.4 (37.0-47.0) % MCV 90.2 (80-100) fl MCH 28.3 (26-34) pg MCHC 31.3 L (32-36) g/dl RDW 12.4 (11.5-14.5) % Plt Count 322 (150-375) k/mm3 MPV 10.3 (7.4-10.4) fl Immature Gran % (Auto) 0.4 (0-0.5) % Neut % (Auto) 66.3 (45.5-73.1) % Lymph % (Auto) 24.9 (18.3-44.2) % Limestone % (Auto) 6.8 (2.6-8.5) % Eos % (Auto) 1.1 (0-4.4) % Baso % (Auto) 0.5 (0.2-1.2) % Lymph # (Auto) 2.82 (0.9-3.2) K/mm3 Limestone # (Auto) 0.8 H (0.1-0.6) K/mm3 Eos # (Auto) 0.1 (0-0.3) K/mm3 Baso # (Auto) 0.1 (0.0-0.1) K/mm3 Abs Immat Gran (auto) 0.05 H (0.00-0.031) K/mm3 Absolute Neuts (auto) 7.5 H (1.3-6.7) K/mm3 Absolute Nucleated RBC 0.000 (0.0-0.012) K/mm3 Nucleated RBC % 0.0 (0.0-0.2) % Sodium 140 (137-145) mmol/L Potassium 4.0 (3.4-5.0) mmol/L Chloride 105 (98-107) mmol/L Carbon Dioxide 26 (22-30) mmol/L Anion Gap 9 (4-12) mmol/L BUN 8 (7-17) mg/dL Creatinine 0.68 L (0.7-1.0) mg/dL Estim Creat Clear Calc 97 ml/min Estimated GFR > 60 (59 - ) Glucose 88 (65-110) mg/dL Calcium 9.4 (8.4-10.2) mg/dL Total Bilirubin 0.4 (0.2-1.3) mg/dL AST 15 (14-36) U/L ALT 12 (6-35) U/L Alkaline Phosphatase 41 (38-126) U/L Total Protein 7.5 (6.3-8.2) g/dL Albumin 4.4 (3.5-5.1) g/dL Lipase 24 (23-300) U/L Urine Color Yellow (Yellow) Urine Appearance Clear (Clear) Urine pH 6.5 (5.0-9.0) Ur Specific [place] 1.013 (1.001-1.035) Urine Protein Negative (Negative) mg/dL Urine Glucose (UA) Negative (Negative) mg/dL Urine Ketones Negative (Negative) mg/dL Ur Blood (Man) Negative (Negative) Urine Nitrate Negative (Negative) Urine Bilirubin Negative (Negative) Urine Urobilinogen 0.2 (<2.0) mg/dL Leukocyte Esterase Rfl Negative (Negative) SHEILA/UL POC Urine HCG, Qual Negative (Negative) Urine Opiates Screen Negative (Negative) Urine Methadone Screen Negative (Negative) Ur Barbiturates Screen Negative (Negative) Ur Phencyclidine Scrn Negative (Negative) Ur Amphetamine Screen Negative (Negative) U Benzodiazepines Scrn Negative (Negative) Urine Cocaine Screen Negative (Negative) U Cannabinoids Screen Positive A (Negative) <Skylar Souza, HARD METALS ENGRAVER HAND - Last Filed: 12/24/24 15:37> Lab Results 12/24/24 12/24/24 Range/Units 15:44 15:47 WBC 11.3 H (4.5-10.0) K/mm3 RBC 4.92 (4.2-5.4) M/mm3 Hgb 13.9 (12.0-15.0) g/dL Hct 44.4 (37.0-47.0) % MCV 90.2 (80-100) fl MCH 28.3 (26-34) pg MCHC 31.3 L (32-36) g/dl RDW 12.4 (11.5-14.5) % Plt Count 322 (150-375) k/mm3 MPV 10.3 (7.4-10.4) fl Immature Gran % (Auto) 0.4 (0-0.5) % Neut % (Auto) 66.3 (45.5-73.1) % Lymph % (Auto) 24.9 (18.3-44.2) % Limestone % (Auto) 6.8 (2.6-8.5) % Eos % (Auto) 1.1 (0-4.4) % Baso % (Auto) 0.5 (0.2-1.2) % Lymph # (Auto) 2.82 (0.9-3.2) K/mm3 Limestone # (Auto) 0.8 H (0.1-0.6) K/mm3 Eos # (Auto) 0.1 (0-0.3) K/mm3 Baso # (Auto) 0.1 (0.0-0.1) K/mm3 Abs Immat Gran (auto) 0.05 H (0.00-0.031) K/mm3 Absolute Neuts (auto) 7.5 H (1.3-6.7) K/mm3 Absolute Nucleated RBC 0.000 (0.0-0.012) K/mm3 Nucleated RBC % 0.0 (0.0-0.2) % Sodium 140 (137-145) mmol/L Potassium 4.0 (3.4-5.0) mmol/L Chloride 105 (98-107) mmol/L Carbon Dioxide 26 (22-30) mmol/L Anion Gap 9 (4-12) mmol/L BUN 8 (7-17) mg/dL Creatinine 0.68 L (0.7-1.0) mg/dL Estim Creat Clear Calc 97 ml/min Estimated GFR > 60 (59 - ) Glucose 88 (65-110) mg/dL Calcium 9.4 (8.4-10.2) mg/dL Total Bilirubin 0.4 (0.2-1.3) mg/dL AST 15 (14-36) U/L ALT 12 (6-35) U/L Alkaline Phosphatase 41 (38-126) U/L Total Protein 7.5 (6.3-8.2) g/dL Albumin 4.4 (3.5-5.1) g/dL Lipase 24 (23-300) U/L Urine Color Yellow (Yellow) Urine Appearance Clear (Clear) Urine pH 6.5 (5.0-9.0) Ur Specific [place] 1.013 (1.001-1.035) Urine Protein Negative (Negative) mg/dL Urine Glucose (UA) Negative (Negative) mg/dL Urine Ketones Negative (Negative) mg/dL Ur Blood (Man) Negative (Negative) Urine Nitrate Negative (Negative) Urine Bilirubin Negative (Negative) Urine Urobilinogen 0.2 (<2.0) mg/dL Leukocyte Esterase Rfl Negative (Negative) SHEILA/UL POC Urine HCG, Qual Negative (Negative) Urine Opiates Screen Negative (Negative) Urine Methadone Screen Negative (Negative) Ur Barbiturates Screen Negative (Negative) Ur Phencyclidine Scrn Negative (Negative) Ur Amphetamine Screen Negative (Negative) U Benzodiazepines Scrn Negative (Negative) Urine Cocaine Screen Negative (Negative) U Cannabinoids Screen Positive A (Negative) <Bryan Bartholomew MD - Last Filed: 12/24/24 22:09> Imaging Data Attestation: I personally reviewed and interpreted this imaging study as follows: <Bryan Bartholomew MD - Last Filed: 12/24/24 22:09> My impression: Impressions Abdomen Ultrasound 12/24/24 18:24 IMPRESSION: Normal limited abdominal ultrasound findings. Abdomen/Pelvis CT 12/24/24 19:01 IMPRESSION: Mild esophagitis/gastritis. Hepatomegaly. Nonocclusive acute appearing splenic portal vein thrombosis. <Bryan Bartholomew MD - Last Filed: 12/24/24 22:09> Radiologist's impression: ITS Impressions Abdomen Ultrasound 12/24/24 18:24 IMPRESSION: Normal limited abdominal ultrasound findings. Abdomen/Pelvis CT 12/24/24 19:01 IMPRESSION: Mild esophagitis/gastritis. Hepatomegaly. Nonocclusive acute appearing splenic portal vein thrombosis. <Skylar Souza APRN - Last Filed: 12/24/24 15:37> ITS Impressions Abdomen Ultrasound 12/24/24 18:24 IMPRESSION: Normal limited abdominal ultrasound findings. Abdomen/Pelvis CT 12/24/24 19:01 IMPRESSION: Mild esophagitis/gastritis. Hepatomegaly. Nonocclusive acute appearing splenic portal vein thrombosis. <Bryan Bartholomew MD - Last Filed: 12/24/24 22:09> Discharge Plan Discharge Clinical Impression: Portal vein thrombosis, Abdominal pain, RUQ <Skylar Souza APRN - Last Filed: 12/24/24 15:37> Patient Disposition: Still a Patient <Skylar Souza APRN - Last Filed: 12/24/24 15:37> Condition: Stable <Skylar Souza APRN - Last Filed: 12/24/24 15:37>
[2024-12-24 15:45] VITALS: BP 132/77; PULSE 62; RESP 18; TEMP 36.3; O2SAT 98
[2024-12-24 15:50] LABS: BEDSIDEPREGUCG Negative (Negative)
[2024-12-24 15:51] LABS: Hematocrit 44.4 % (37.0-47.0); Hemoglobin 13.9 g/dL (12.0-15.0); Immature Granulocyte Percent A 0.4 % (0-0.5); Lymphocytes Absolute Auto 2.82 K/mm3 (0.9-3.2); Mean Corpuscular HGB Conc 31.3 g/dl (32-36); Mean Corpuscular Hemoglobin 28.3 pg (26-34); Mean Corpuscular Volume 90.2 fl (80-100); Nucleated Red Blood Cells Absolute Auto 0.000 K/mm3 (0.0-0.012); Nucleated Red Blood Cells Perc 0.0 % (0.0-0.2); Platelet Count Result 322 k/mm3 (150-375); Red Blood Count 4.92 M/mm3 (4.2-5.4); White Blood Count 11.3 K/mm3 (4.5-10.0)
[2024-12-24 15:52] LABS: Add Urine Microscopic? NO; Appearance Urine Clear (Clear); Glucose Urine UA Negative (Negative); Leukocyte Esterase Ur Negative LEU/UL (Negative); Nitrate Urine Negative (Negative); Specific Grav Ur 1.013 (1.001-1.035)
[2024-12-24 16:00] LABS: Alanine Aminotransferase 12 U/L (6-35); Albumin Level 4.4 g/dL (3.5-5.1); Alkaline Phosphatase 41 U/L (38-126); Anion Gap 9 mmol/L (4-12); Aspartate Amino Transferase 15 U/L (14-36); Bilirubin,Total 0.4 mg/dL (0.2-1.3); Blood Urea Nitrogen 8 mg/dL (7-17); Calcium 9.4 mg/dL (8.4-10.2); Carbon Dioxide 26 mmol/L (22-30); Chloride 105 mmol/L (98-107); Estimated CRCL calculation 97 ml/min; Estimated Glomerular Filt Rate > 60; Glucose 88 mg/dL (65-110); Lipase 24 U/L (23-300); Potassium 4.0 mmol/L (3.4-5.0); Sodium 140 mmol/L (137-145); Total Protein 7.5 g/dL (6.3-8.2)
[2024-12-24 16:09] LABS: Cannabinoid Screen Urine Positive (Negative)
--- OUTSIDE RECORDS SUMMARY | 2024-12-24 16:29 | XMS_ITS | Clinical Summary ---
Author Organization [facility] Address [address] [place] [id number] Care Team Providers Care Professor Of Art History Name Role Phone Mervin Kevin MD Primary Care Provider [phone] Social History Tobacco Use Types Packs/Day Years Used Date Smoking Tobacco: Never Assessed Comments Unknown Sex and Gender Information Value Date Recorded Sex Assigned at Not on file Legal Sex Female 10:18 AM SHIPPING LEAD Gender Identity Not on file Sexual Orientation Not on file Last Filed Vital Signs Vital Sign Reading Time Taken Comments Blood Pressure 111/67 07/29/2017 9:58 AM SHIPPING LEAD Pulse 72 07/29/2017 9:58 AM SHIPPING LEAD Temperature - - Respiratory Rate - - Oxygen Saturation - - Inhaled Oxygen Concentration - - Weight 68 kg (150 lb) 07/29/2017 9:58 AM SHIPPING LEAD Height 170.2 cm (5' 7) 07/29/2017 9:58 AM SHIPPING LEAD Body Mass Index 23.49 07/29/2017 9:58 AM SHIPPING LEAD Plan of Treatment Health Maintenance Due Date [...] patient's age to complete this topic Insurance [employer] Care Teams Professor Of Art History Relationship Specialty Start Date End Date Mervin Kevin MD [address] [address] PCP - General FAMILY PRACTICE 06/30/17
--- OUTSIDE RECORDS SUMMARY | 2024-12-24 16:29 | XMS_ITS | Clinical Summary ---
Author Organization [facility] [employer] Address [address] [place] [address] Care Team Providers Care Manager Games Name Role Phone Mervin Kevin MD Primary Care Provider [phone] Source Comments [facility] [employer],non-owned Affiliates and Associated Physician Practices is amultiple site organization consisting of ambulatory clinics and hospital sitesin [place], [place], [place] and [place]. This disclosure is being madepursuant to the Care Everywhere program and may not contain all information available regarding this patient. Last updated 18.[facility] [employer] Allergies Active Allergy Reactions Criticality Noted Date [...] Hanna was screened for depression using the Lyon Depression Scale (EPDS) at her [facility] initial evaluation on 03/06/2018. Her initial score [...] from the original note were not included. [facility] PATIENT--PLEASE CALL [phone] (ex 2) IF TRIAGED OR ADMITTED Care Provider: Dr. Erasmo Wood [place] [facility] [place] consultants involved: RN-Rosana/Jayce; MFM-Vitor; Cleft Team-Kamila Mojica; Cardiology-Vitor Diagnosis: Cleft Lip & Palate follow up: per Cleft Team consult 9.10: Family will call to schedule a visit with the cleft palate team after the baby is born. Trash Hauler: undecided as of 04.03 Planned surveillance: Repeat ultrasound at [facility] at 32w & 36w; released from [facility] on 04.03.2018 Delivery location, mode, and GA: [facility], desires vaginal delivery Genetics note: genetic diagnostic [...] laboratory and call the genetic counselors at [phone] or [phone] to notify that specimen is ready for sendout. Order can be placed by genetic counselor in baby's chart at that time. Please request Genetics consult postnatally if clinically indicated by calling the Genetics office at [phone] prior to ordering genetic studies. Stoper Concerns: 03/06/18- Patient with history of bipolar [...] PM CDT Legal Sex Female 3:34 PM CUT OFF SAW TENDER METAL Gender Identity Female 02/21/2024 3:10 PM CDT [...] Oxygen Concentration 21% 06/30/2018 8 :39 AM CUT OFF SAW TENDER METAL Weight 74.8 kg (165 lb) 02/22/2024 10:16 [...] Reactive Non Reactive 11/24/2018 3:32 PM CDT [facility] Blood BLOOD SPECIMEN / Unknown Venipuncture / Unknown 11/24/2018 2:32 PM CDT 11/24/2018 2:35 PM CDT Narrative [facility] - 11/24/2018 3:32 PM CDT No Laboratory evidence of HIV infection. us Alondra Saxena DO LAB - CHEMISTRY ORDERAB LES Final Result [facility] [address] [place] [address] * PAP LB RFLX HPV ASCU (11/24/2018 2:32 PM CDT) Diagnosis Comment 11/29/2018 11:13 AM CDT [facility] ([facility]) Comment:NEGATIVE FOR INTRAEP ITHELIAL LESION OR MALIGNANCY. Specimen Adequacy Comment 019 11:13 AM CDT [facility] ([facility]) Comment: Satisfactory for evaluation. Endocervical and/or squamous metaplastic cells (endocervical component) are present. Performed by Comment 11/29/2018 11:13 AM CDT [facility] ([facility]) Comment:Aamir Miller chnologist (ASCP) Comment . 11/29/2018 11:13 AM CDT [facility] ([facility]) Note Comment 11/29/2018 11:13 AM CDT [facility] ([facility]) Comment: The Pap smear is a screening test designed to aid in the detection of premalignant and malignant conditions of the uterine cervix. It is not a diagnostic procedure and should not be used as the sole means of detecting cervical cancer. Both false-positive and false-negative reports do occur. Note Comment 11/29/2018 11:13 AM CDT [facility] ([facility]) Comment: The HPV DNA reflex criteria were not met with this specimen result therefore, no HPV testing was performed. Pathology/Cytolo gy ENTIRE ENDOCERVIX / Unknown Collection / Unknown 11/24/2018 2:32 PM CDT 11/25/2018 7:38 AM CDT [facility] ([facility]) - 11/29/2018 11:13 AM CDT Performed at: [address] [place] [id number] [employer] Teacher: Fe Cruz MD, Phone: [phone] Specimen Comment: Source.............Cervix;Endocervix Specimen Comment: No. of containers..01 ThinPrep Vial us Alondra Saxena DO LAB - PATHOLOGY/CYTOLOG Y ORDERABLES Final Result [facility] ([facility]) [address] [place] [address] * HEPATITIS C ANTIBODY (11/24/2018 2:32 PM CDT) HCV Antibody Screen Non Reactive Non Reactive 11/24/2018 4:08 PM CDT [facility] HCV S/C Ratio 0.13 0.00 - 0.79 11/24/2018 4:08 PM CDT [facility] Comment: Mybkva-sl-qipgbq ratio (S/CO) <0.80: Non Reactive Blood BLOOD SPECIMEN / Unknown Venipuncture / Unknown 11/24/2018 2:32 PM CDT 11/24/2018 2:36 PM CDT Narrative [facility] - 11/24/2018 4:08 PM CDT Non Reactive - Antibodies to Hepatitis C virus (HCV) were not detected, result does not exclude early acute HCV infection. Alondra Saxena DO LAB - CHEMISTRY ORDERAB LES Final Result [facility] [address] [place] [address] from Last 3 Months or Most Recently Relevant to Health Maintenance Insurance MEDICAID - [place] [facility] MEDICAID - OUT OF STATE Advance Directives * Full Code (Latest Code Status on File) Date Activated Date Inactivated Comments 06/28/2018 1:00 PM 06/30/2018 1:33 PM Care Teams Manager Games Relationship Specialty Start Date End Date Mervin Kevin MD [address] [place] [id number] PCP - General Family Medicine 12/29/17
--- OUTSIDE RECORDS SUMMARY | 2024-12-24 16:29 | XMS_ITS | Clinical Summary ---
Author Organization [facility] Address [address] [place] [address] Phone Care Team Providers Care Plate And Weld Inspector Name Role Phone Mervin Kevin MD Primary Care Provider [phone] Allergies Active Allergy Reactions Criticality Noted Date Comments Nitrofurantoin Other (see Comments) High 10/23/2021 Medications fluticasone (FLONASE) 50 MCG/ACT Suspension 2 Sprays by Nasal route daily. Active albuterol 108 (90 Base) MCG/ACT Aerosol Solution take 1 Puff by inhalation every 4 hours as needed for Wheezing. 8 Active ergocalciferol (VITAMIN D) 82564 UNIT Capsule Take 1.25 mg by mouth [...] - 12/20/2024 11:59 PM CDT [facility] [address] [place] [address] Cinthia Noriega, FOUNDER / CEO, [employer] Discharge Disposition: Discharged to home or Selfcare 12/20/2024 6:00 AM CDT - 12/20/2024 6:59 AM CDT [facility] Diagnostic Radiology [address] [place] [address] Mervin Kevin MD Discharge Disposition: Discharged to home or Selfcare 12/20/2024 Travel 12/18/2024 Transcribe Orders [facility] [address] [place] [address] [place] [address] Mervin Kevin MD Liver lesion (Primary Dx) 12/17/2024 Telephone [facility] On[facility] [address] [place] [address] Cinthia Noriega, FOUNDER / CEO, [employer] 12/03/2024 1:50 PM CDT - 12/03/2024 11:59 PM CDT [facility] [address] [place] [address] Wili Solomon MD Discharge Disposition: Discharged to home or Selfcare 12/03/2024 Travel 11/23/2024 1:48 PM CDT - 11/23/2024 11:59 PM CDT [facility] [address] [place] [address] Provider, Not On File Discharge Disposition: Discharged to home or Selfcare 11/23/2024 1:45 PM CDT - 11/23/2024 1:47 PM CDT [facility] [address] [place] [address] Provider, Not On File Discharge Disposition: Discharged to home or Selfcare 11/21/2024 9:40 AM CDT Office Visit [facility] Oncology Services [address] [place] [address] Wili Solomon MD Nodule of right lung [...] - 1.3 mg/dL 12/20/2024 8:08 AM CDT [facility] Blood 12/20/2024 8:06 AM CDT 12/20/2024 8:08 AM CDT us None Provider POINT OF CARE TESTING Final Resu lt [facility] [address] [place] [address] * XR ORBITS FOR FOREIGN BODY (12/20/2024 [...] Addison Villalta M.D. LC: RK Report ID: [id number] Reading Location: [id number] Procedure Note Celeste Villalta MD - 12/20/2024 [...] Addison Villalta M.D. LC: RK Report ID: [id number] Reading Location: [id number] IMPRESSION: Negative study of the orbits. No [...] Tyler Pimentel D.O. AP: AP Report ID: [id number] Reading Location: [id number] Procedure Note Tyler Pimentel, DO - 12/14/2024 [...] Tyler Pimentel D.O. AP: AP Report ID: [id number] Reading Location: [id number] IMPRESSION: 1. The right mainstem bronchus soft [...] ult from Last 3 Months Insurance MEDICAID [place] Care Teams Plate And Weld Inspector Relationship Specialty Start Date End Date Mervin Kevin MD [address] [place] [address] PCP - General Family Medicine 11/21/24
--- OUTSIDE RECORDS SUMMARY | 2024-12-24 16:29 | XMS_ITS | Clinical Summary ---
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
--- OUTSIDE RECORDS SUMMARY | 2024-12-24 16:29 | XMS_ITS | Referral Summary ---
Author Organization [facility] Address [facility] [place] [address] Care Team Providers Care Personal Care Aide Name Role Phone Mervin Kevin MD Primary Care Provider [phone] Allergies Active Allergy Reactions Criticality Noted Date Comments Nitrofurantoin Anaphylaxis High 12/29/2017 Social History Tobacco Use Types Packs/Day Years Used Date Smoking Tobacco: Every Day Cigarettes Smokeless Tobacco: Never Personal Safety Answer Date Recorded Getting School Help Needed Not on file 08/21 Comments No Sex and Gender Information Value Date Recorded Sex Assigned at Not on file 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
--- OUTSIDE RECORDS SUMMARY | 2024-12-24 16:29 | XMS_ITS | Clinical Summary ---
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
--- OUTSIDE RECORDS SUMMARY | 2024-12-24 16:29 | XMS_ITS | Continuity of Care Document ---
Author Organization [facility] Address [address] [place] [address] Phone Care Team Providers Care Vp Software Engineering Name Role Phone Rausch OD, Erasmo Unavailable Unavailable Advance Directives Directive Yes / No Effective Date File Name No Information Encounters Encounter Description Practice Location Reason(s) For Visit Diagnoses Date Provider Providers Copied on Encounter [facility], [address], [place], [place], [id number], [place] tel:[phone] [facility] [place] No Information Apr- 4-200 4 Rausch OD Erasmo. [address] [place] , [address], [place], [address], [place]. tel:[phone] Family History Family Member Type Diagnosis Age At Onset No Information Payers Payer name Insurance type Covered alliance party ID Authoriza tion(s) Medicaid [facility] [id number] Social History Type Description Quantity Date Captured [...]
--- OUTSIDE RECORDS SUMMARY | 2024-12-24 16:29 | XMS_ITS | Continuity of Care Document ---
Author Organization [facility] Address [address] [address] Phone Care Team Providers Care Finisher Cold Rolling Name Role Phone Pinky Daniels MD Unavailable [...] [facility], [address], [id number], [place] tel:[phone] [facility] No Information [address]. [address], [place], [address], [place]. tel:[phone] Referring Provider: Mervin Kevin, [address] [place] [address], [address]. tel:[phone] Est (Level 4) OFFICE/OUTPA TIENT VISIT [facility], [address] [place] [address], [id number], [place] tel:[phone] [facility] allergy symptoms (chief complaint) Recurrent acute suppurative otitis media w/o spontaneous rupture of ear drum of earOther allergic rhinitisSevere persistent asthmaAbnormal results of function studies of other [facility] [address], [place], [address], [place]. tel:[phone] Referring Provider: Mervin Kevin, [address] [place] [address], [address]. tel:[phone] Est (Level 3) OFFICE/OUTPA TIENT VISIT [facility], [address] [place] [address], [id number], [place] tel:[phone] [facility] recurrent infections (chief complaint) Recurrent acute suppurative otitis media w/o spontaneous rupture of ear drum of earOther allergic rhinitisSevere persistent asthmaAbnormal results of function studies of other systems [address], [place], [address], [place]. tel:[phone] Referring Provider: Ruslan Reid, [address] [facility] [address], [place], [address]. tel:[phone] Est (Level 4) OFFICE/OUTPA TIENT VISIT [facility], [address] [place] [address], [id number], [place] tel:[phone] [facility] recurrent infections (chief complaint) Recurrent acute suppurative otitis media w/o spontaneous rupture of ear drum of earSevere persistent asthmaOther allergic rhinitisAbnorma l results of function studies of other systems [address]. [address], [place], [address], [place]. tel:[phone] Referring Provider: Ruslan Reid, [address] [facility] [address], [place], [address]. tel:[phone] New (Level 4) OFFICE/OUTPA TIENT VISIT [facility], [address] [place] [address], [id number], [place] tel:[phone] [facility] recurrent infections (chief complaint) Recurrent acute suppurative otitis media w/o spontaneous rupture of ear drum of earSevere persistent asthmaOther allergic rhinitis Fe-0 3 [address]. [address], [place], [address], [place]. tel:[phone] Referring Provider: Ruslan Reid, [address] [facility] [address], [place], [address]. tel:[phone] Family History Family Member Type Diagnosis Age At Onset Paternal aunt Problem rheumatoid arthritis Father Problem Allergic rhinitis Brother Problem Asthma Paternal aunt Problem Lupus erythematosus Sister Problem Asthma Paternal grandmother Problem Asthma Payers Payer name Insurance type Covered republican ID Authoriza timunir(s) RUST [id number] Social History Type Description Quantity Date Captured Comments Alcohol Use Details Unknown Caffeine Use Details Unknown Tobacco Use Status No Information Smoking Status No Information Sex Female Chief Complaint And Reason For Visit No Information Reason For Referral Reason For Referral No Information Plan Of Treatment Date Type Action Status Future Order: Lab Order S. Pneum onia-23 Serotypes (69655), Sent on: Sent Future Order: Lab Order CBC With Diff (63 99), Sent on: Sent Future Order: Lab Order ESR (809), Sent o n: Sent Future Order: Lab Order CRP ([id number]), Sent on: Sent Future Order: Lab Order Comprehe nsive Metabolic Panel ([id number]), Sent on: Sent Future Order: Lab Order CBC With Differential ([id number]), Sent on: Sent Future Order: Lab Order Compleme nt Total (CH50) ([id number]), Sent on: Sent Future Order: Lab Order Immunogl obulins A/E/G/M, Serum ([id number]), Sent on: Sent Future Order: Lab Order Mannose Binding Lectin ([id number]), Sent on: Sent Future Order: Lab Order Strep Pn eumo 23 ([id number]), Sent on: Sent Future Order: Lab Order T- and B -Lymphocyte and Natural Killer Cell Profile ([id number]), Sent on: Sent Future Order: Lab Order Tetanus/ Diphtheria Antibody Profile ([id number]), Sent on: Sent History Of Present Illness [...] She has not had post labs drawn yet.AsthmaShlyrci is on Breztri 2 puffs twice daily [...] protective(She had Pneumovax on 09/02/22)08/12/22IgIgA: 126IgM: 79IgE: 252EX58: 58AH50: (deferred)Anti-Spn 23: decreased 02/16 = 65% protectiveAnti-Diphtheria: 0.1 (protective)Anti-Tetanus: 1.17 (protective)AEC: 215AANC: 16,641Flow CytometryCD3+: 56% (L), 1612 (wnl)CD3+CD4+: 35%, 1743LK1+CD8+: 26%, 772CD4/CD8 Ratio: 1.33CD16+CD56+: 32% (H), 912 (H)CD19+: 10%, (poor scan quality, best interpretation listed)IgG 995*IgG1 594*IgG2 270*IgG3 74*IgG4 74Environmental Immunocaps: +HDM, cockroach, grass, trees, weeds other than ragweed with total IgE 432C9LQ Phenotype: PI*MMTB Quant Gold: negativeHRCT Chest on [...] are planning a colonoscopy future.Data08/12/22IgIgA: 126IgM: 79IgE: 826DT45: 58AH50: (deferred)Anti-Spn 23: decreased 02/16 = 65% protectiveAnti-Diphtheria: 0.1 (protective)Anti-Tetanus: 1.17 (protective)AEC: 215AANC: 16,641Flow CytometryCD3+: 56% (L), 1612 (wnl)CD3+CD4+: 35%, 0278HZ6+CD8+: 26%, 772CD4/CD8 Ratio: 1.33CD16+CD56+: 32% (H), 912 (H)CD19+: 10%, (poor scan quality, best interpretation listed)IgG 995*IgG1 594*IgG2 270*IgG3 74*IgG4 74Environmental Immunocaps: +HDM, cockroach, grass, trees, weeds other than ragweed with total IgE 780D3SC Phenotype: MMTB Quant Gold: negativeHRCT Chest on [...] will see hematology next month.Data08/12/22IgIgA: 126IgM: 79IgE: 249HT60: 58AH50: (deferred)Anti-Spn 23: decreased 02/16 = 65% protectiveAnti-Diphtheria: 0.1 (protective)Anti-Tetanus: 1.17 (protective)AEC: 215AANC: 16,641Flow CytometryCD3+: 56% (L), 1612 (wnl)CD3+CD4+: 35%, 3018CI8+CD8+: 26%, 772CD4/CD8 Ratio: 1.33CD16+CD56+: 32% (H), 912 (H)CD19+: 10%, (poor scan quality, best interpretation listed)IgG 995*IgG1 594*IgG2 270*IgG3 74*IgG4 74Environmental Immunocaps: +HDM, cockroach, grass, trees, weeds other than ragweed with total IgE 282M8ZC Phenotype: MMTB Quant Gold: negativeHRCT Chest on [...] weeds other than ragweed with total IgE 106O6RS Phenotype: MMTB Quant Gold: negativeHRCT Chest on [...]
[2024-12-24] MEDS: LACTATED RINGERS 1,000 ML 999 ML IV CONT (18:03)
[2024-12-24] MEDS: ONDANSETRON INJ 4 MG/2 ML VIAL IV PUSH (18:06)
[2024-12-24] MEDS: HYDROmorphone HCL INJ (*CRX) 2 MG/ML VIAL 0.5 MG IV PUSH ×2 (18:07→22:45)
[2024-12-24 18:09] VITALS: BP 104/59; PULSE 67; RESP 18; O2SAT 100
--- NOTE | 2024-12-24 20:00 | PM.IMHP ---
H&P: HPI History of Present Illness Date/Time: 12/24/24 21:00 Chief Complaint: Abdominal pain. Narrative: This is a 34-year-old female with history of irritable bowel syndrome with constipation, gastroesophageal reflux disease, peptic ulcer, kidney stones, hepatomegaly currently being worked up, systemic lupus erythematosus, pericarditis, pericarditis, atrial fibrillation, chronic obstructive pulmonary disease, hypothyroidism, anemia, depression, anxiety, and bipolar disorder who presented to the emergency department via private vehicle with complaints of abdominal pain. She gives a 4 month history of generalized abdominal comfort, mainly with eating. She describes early satiety and occasional pressure-like discomfort throughout the upper abdomen. Her symptoms have been much worse over the past 5 days and it seems to be situated more so over the right upper quadrant. She actually arrived to the ED complaining of ?liver pain? radiating around her ribs and through to the back. She is also had some nausea and a couple of episodes of nonbloody and nonbilious emesis. She denies fever, chills, sweats, hematemesis, jaundice, pruritus, rash, melena, hematochezia, steatorrhea and acholic stools. Her GERD symptoms are not any worse than normal. She typically has constipation and reports having an otherwise unremarkable bowel movement couple of days ago. She denies NSAID and alcohol use. In the ED: Vital signs were stable on arrival. CMP and CBC were pretty unremarkable aside from a WBC count of 11.3. Urine drug screen was positive for cannabinoids. CT of the abdomen and pelvis showed evidence of mild esophagitis/gastritis, hepatomegaly, and nonocclusive acute appearing splenic portal vein thrombosis. She received therapeutic enoxaparin and is being admitted in this setting for further treatment and evaluation. Review of Systems Review of Systems: 12 systems were reviewed and are negative except for as per HPI. [facility] Past Medical History Medical History (Updated 12/25/24 @ 04:43 by Yolanda Nicholson PA-C) Hepatomegaly Hypothyroidism Degenerative disc disease Kidney stones Pericarditis Paroxysmal atrial fibrillation Peptic ulcer Migraine Depression with anxiety Chronic obstructive pulmonary disease HSV-2 infection HSV-1 infection Irritable bowel syndrome with constipation Gastroesophageal reflux disease Esophagitis Anemia Bipolar 1 disorder Surgical History Surgical History History of cardiac catheterization History of gynecologic surgery (10/2022) Laparoscopic bilateral salpingectomy Hysterectomy Dilation and curettage Endometrial ablation H/O hand surgery History of delivery x2 Family History Family History Father Diabetes mellitus Heart disease Social History Social History (Updated 12/25/24 @ 04:41 by Yolanda Nicholson PA-C) Social History: Surrogate medical decision maker: Miguel Castellano, significant other. Code status: Full code. Smoking packs per day: 2 Smoking cigarettes per day: 40.0 Years smoked: 16 Smoking pack-years: 32.00 Smoking status: Former smoker Tobacco type: cigarettes Smoking end date: 03/27/22 Alcohol intake: current Drinks per week: 1 Alcohol use details: Rare alcohol use in moderation. Substance use: current Substance use type: marijuana Last use: 12/22/24 Do You Feel Safe in your Home?: Yes Lack of Transportation: No Lack of Food: Never True Current Housing: I Have Housing Concerned About Future Housing: No Difficulty Paying Gas/Electric Bills: YES Difficulty Paying for Meds: No Currently Unemployed: YES Education: High School Diploma/GED Difficulty w/ Childcare or Family Care: No Living arrangements: with family Additional living arrangements comments: Lives with maria a and her 6 children. Occupation/Education: occupation Spiritual care concerns: No Meds Home Medications and Allergies Home Medications ?Medication ?Instructions ?Recorded ?Confirmed ?Type duloxetine 60 mg capsule,delayed 60 mg PO DAILY 11/09/19 12/24/24 History release vitamin B complex (B 1 tablet PO DAILY 11/09/19 12/24/24 History Complex-Vitamin B12 tablet) albuterol sulfate 90 mcg/actuation 1 puff inhalation Q4-6H PRN 09/10/22 12/24/24 History aerosol inhaler Shortness Of Breath Or Wheezing metoprolol succinate 50 mg 50 mg PO HS 09/10/22 12/24/24 History tablet,extended release 24 hr blood-gluc meter-wrist BP mntr 09/17/22 12/24/24 History (2Tek Glucose/Blood Pressure kit) fluticasone propionate 50 1 spray intranasal DAILY 09/17/22 12/24/24 History mcg/actuation nasal spray,suspension (Flonase Allergy Relief) ergocalciferol (vitamin D2) 1,250 50,000 mcg PO WEEKLY 10/04/22 12/24/24 History mcg (50,000 unit) capsule cyclobenzaprine 10 mg tablet 10 mg PO HS 10/13/22 12/24/24 History ferrous sulfate 325 mg (65 mg 325 mg PO BID 10/13/22 12/24/24 History iron) tablet linaclotide 72 mcg capsule 72 mcg PO DAILY 1 month #30 caps 10/29/22 12/24/24 Rx (Linzess) acetaminophen 500 mg tablet 500 mg PO Q6H PRN pain #30 tabs 11/18/22 12/24/24 Rx ibuprofen 600 mg tablet 600 mg PO Q6H PRN pain #30 tabs 11/18/22 12/24/24 Rx sumatriptan succinate 25 mg tablet 25 mg PO .COMPLEX 12/06/22 12/24/24 History omeprazole 40 mg capsule,delayed See Rx Instructions .Route 12/13/22 12/24/24 Rx release .COMPLEX #90 caps calcium carbonate (Calcium 600) 600 mg PO DAILY 08/10/23 12/24/24 History aspirin 81 mg chewable tablet 81 mg PO DAILY 09/23/23 12/24/24 History famotidine 20 mg tablet See Rx Instructions .Route 10/25/23 12/24/24 Rx .COMPLEX #60 tabs valacyclovir 500 mg tablet 500 mg PO DAILY #60 tabs 01/16/24 12/24/24 Rx (Valtrex) diazepam 10 mg tablet 10 mg PO QHS PRN anxiety 10/29/24 12/24/24 History diltiazem HCl 30 mg tablet 30 mg PO BID 12/24/24 12/24/24 History escitalopram oxalate 10 mg tablet 10 mg PO HS 12/24/24 12/24/24 History fluticasone 250 mcg-salmeterol 50 1 inh inhalation Q12H 12/24/24 12/24/24 History mcg/dose blistr powdr for inhalation hydrocodone 5 mg-acetaminophen 325 1 tablet PO Q4H PRN pain 12/24/24 12/24/24 History mg tablet hydrocortisone 2.5 % topical cream 1 applic topical DAILY 12/24/24 12/24/24 History with perineal applicator ketorolac 10 mg tablet 10 mg PO Q6H PRN pain 12/24/24 12/24/24 History ondansetron 4 mg disintegrating 4 mg translingual Q8H PRN nausea 12/24/24 12/24/24 History tablet and vomiting Allergies Allergy/AdvReac Type Severity Reaction Status Date / Time nitrofurantoin (From Allergy Severe Swelling Verified 12/24/24 23:59 Macrobid) of Lip/Tongue/Throat Vital Signs Vital Signs - 24 hr 12/24/24 12:12 12/24/24 15:45 12/24/24 18:09 Temperature 98.2 F 97.4 F L Pulse Rate 63 62 67 Respiratory Rate 15 18 18 Blood Pressure 100/63 132/77 104/59 L Pulse Oximetry 100 98 100 Oxygen Delivery Room Air Exam Narrative: General: Nontoxic-appearing female in the semi-Leong position in bed in no distress. Weight: 72.6 kg. BMI: 25.1. HEENT: PERRL, EOMI. Sclera anicteric. Oral mucosa moist. Neck: Supple. Respiratory: Lungs are clear to auscultation bilaterally. Cardiovascular: Regular rate and rhythm with S1-S2. Gastrointestinal: Abdomen is soft and nondistended with positive bowel sounds. She is quite tender to palpation throughout the periumbilical region, more so in the right upper quadrant. Mild guarding but no rebound tenderness. Skin: Warm and dry. No jaundice. Extremities: No cyanosis, clubbing, or edema. Radial and pedal pulses intact. Negative Maximiliano sign bilaterally. Neurological: Alert. Cranial nerves 2-12 are grossly intact. No gross focal deficits to casual conversation. Psychiatric: Pleasant and cooperative with normal mood and affect. Judgment and insight intact. H&P: Results Labs Labs: Short CBC 12/24/24 Range/Units 15:44 WBC 11.3 H (4.5-10.0) K/mm3 Hgb 13.9 (12.0-15.0) g/dL Hct 44.4 (37.0-47.0) % Plt Count 322 (150-375) k/mm3 BMP 12/24/24 15:44 Sodium 140 Potassium 4.0 Chloride 105 Carbon Dioxide 26 BUN 8 Creatinine 0.68 L Glucose 88 Calcium 9.4 Liver Function 12/24/24 Range/Units 15:44 Total Bilirubin 0.4 (0.2-1.3) mg/dL AST 15 (14-36) U/L ALT 12 (6-35) U/L Alkaline Phosphatase 41 (38-126) U/L Albumin 4.4 (3.5-5.1) g/dL Urine 12/24/24 Range/Units 15:44 Urine Color Yellow (Yellow) Urine Appearance Clear (Clear) Urine pH 6.5 (5.0-9.0) Ur Specific [place] 1.013 (1.001-1.035) Urine Protein Negative (Negative) mg/dL Urine Glucose (UA) Negative (Negative) mg/dL Imaging Abdomen Ultrasound 12/24/24 18:24 IMPRESSION: Normal limited abdominal ultrasound findings. Abdomen/Pelvis CT 12/24/24 19:01 IMPRESSION: Mild esophagitis/gastritis. Hepatomegaly. Nonocclusive acute appearing splenic portal vein thrombosis. Assessment and Plan Assessment and plan (1) Acute thrombosis of splenic vein: Code(s): I82.890 - Acute embolism and thrombosis of other specified veins Status: Acute (2) Portal vein thrombosis: Code(s): I81 - Portal vein thrombosis Status: Acute (3) Esophagitis with gastritis: Code(s): K29.70 - Gastritis, unspecified, without bleeding; K20.90 - Esophagitis, unspecified without bleeding Status: Acute (4) Hepatomegaly: Code(s): R16.0 - Hepatomegaly, not elsewhere classified Status: Acute (5) Paroxysmal atrial fibrillation: Code(s): I48.0 - Paroxysmal atrial fibrillation Status: Acute (6) Gastroesophageal reflux disease: Code(s): K21.9 - Gastro-esophageal reflux disease without esophagitis Status: Acute (7) Chronic obstructive pulmonary disease: Code(s): J44.9 - Chronic obstructive pulmonary disease, unspecified Status: Acute Plan The patient presented to the emergency department for evaluation of acute on chronic abdominal pain as detailed in HPI. Labs, imaging, EKG, and all reports were personally reviewed. CT of the abdomen and pelvis showed findings of mild esophagitis and gastritis which is an ongoing problem for her as well as nonocclusive acute appearing splenic portal vein thrombosis. Continue enoxaparin 1 milligram/kilogram q.12 hours for now. Analgesics available as needed. Precipitating etiology is not clear. She has a history of paroxysmal atrial fibrillation and an echocardiogram has been ordered. She is currently being worked up for hepatomegaly at [facility] in [place] and is also seeing a wood heel back liner/oncologist therefore reasons of which I am not entirely clear. I did discuss with her that she needs to alert her wood heel back liner about her current admission for further workup as an outpatient. She has systemic lupus erythematosus which could predispose her to clots. Continue PPI for chronic GERD. She is in a sinus rhythm and we will continue diltiazem. She is not on anticoagulation due to low [id number] score. No acute issues with regards to COPD. Vital signs are stable. Her home medications will be reviewed and resumed as appropriate. Quality VTE Prophylaxis VTE prophylaxis: pharmacologic ordered (currently on LMWH) Hospitalist [facility] Advance Care Plan I have confirmed that the patient's Advanced Care Plan is present, code status is documented, or surrogate decision maker is listed in patient medical record.: Yes Medication Reconciliation I have utilized all available resources to obtain, update and review the patients current medications (includes all prescriptions, OTC, herbals, cannabis, and nutritional supplements).: Yes
[2024-12-24] MEDS: ENOXAPARIN 80 MG/0.8 ML SYRINGE 71 MG SUB-Q (20:04)
[2024-12-24 20:59] VITALS: BMI 25.0
[2024-12-24 21:00] VITALS: BP 114/66; PULSE 56; RESP 18; TEMP 36.6; O2SAT 100
[2024-12-24] MEDS: HYDROcodone/acetaminophen (*CRX) 5-325 MG TABLET 1 TAB PO (21:38)
--- NOTE | 2024-12-24 22:48 | ADMGEN ---
This patient, Yu Sanchez, was admitted to 2 Medical Room 248-. Patient/family oriented to hospital policies and general routines including ID bracelet, bed and alarms, visiting hours, pain management, procedures, bathroom and other care routines, personal items, smoking policy, room service/diet, and visiting hours. Information on how to activate the Rapid Response Team has been discussed. Patient/Family are encouraged to report perceived risks to care and to ask questions if they do not understand what they are told or what they should do.
[2024-12-25] VITALS (12 sets, daily range): BP systolic 101–114; BP diastolic 50–61; PULSE 53–78; RESP 14–20; TEMP 36.3–36.5; O2SAT 98–100
--- NOTE | 2024-12-25 04:50 | ECHO_ITS ---
Patient Info Name: Yu Sanchez Age: 34 years : 1990 Gender: Female Ht: 67 in Wt: 160 lbs BSA: 1.86 m2 HR: 59 bpm BP: 101 / 59 mmHg Technical Quality: Good Exam Date: 12/25/2024 8:22 AM Patient Status: I Admit Date: 12/24/2024 Exam Type: CA echo doppler w bubble study Complete two-dimensional, color flow and Doppler transthoracic echocardiogram is performed with agitated saline. Staff Referring Physician: Bryan Bartholomew Last Repairer Helper: Mariola Loya Attending Provider: Waylon Sierra Contrast/Agitated Saline Contrast/Ag. Saline: Agitated Saline Amount: 16.00 ml Summary 1. Left ventricular chamber dimension is normal. 2. Left ventricular systolic function is normal, estimated at 60-65. 3. The left ventricular diastolic function is normal. 4. E/e' 5 is not elevated. 5. There is trace mitral valve regurgitation. Left Ventricle E/e' 5 is not elevated. Left ventricular chamber dimension is normal. Left ventricular systolic function is normal, estimated at 60-65. The left ventricular diastolic function is normal. Right Ventricle Right ventricular chamber dimension is normal. Right ventricular systolic function is normal and with normal TAPSE 3.0 cm. Left Atria Left atrial chamber dimension is normal. Right Atria Right atrial chamber dimension is normal. Atrial Septum Intact interatrial septum visualized by 2D and agitated saline imaging. Agitated saline injection with and without valsalva maneuver opacified right side cardiac chambers without shunt to left side cardiac chambers. Aortic Valve The aortic valve is trileaflet. There is no aortic valve stenosis. There is no aortic valve regurgitation. Pulmonic Valve There is no pulmonic regurgitation. Mitral Valve There is no mitral valve stenosis. There is trace mitral valve regurgitation. Tricuspid Valve There is no tricuspid valve regurgitation. Pericardium/Pleural There is no pericardial effusion. Inferior Vena Cava Normal inferior vena cava with >50% collapse upon inspiration consistent with normal right atrial pressure, 5 mmHg. Aorta The aortic root size at the sinus of Valsalva is normal. Left Ventricular Outflow Tract Name Value Normal LVOT 2D LVOT Diameter 2.0 cm LVOT Doppler LVOT Peak Velocity 86 cm/s LVOT Peak Gradient 3 mmHg LVOT Mean Gradient 2 mmHg LVOT VTI 21 cm LVOT VTI/AV VTI Ratio 0.8 LVOT Stroke Volume 65 ml LVOT CO 3.8 l/min LVOT CI 2.1 l/min/m2 Pulmonic Valve Name Value Normal PV Doppler PV Peak Velocity 90 cm/s PV Peak Gradient 3 mmHg Mitral Valve Name Value Normal MV Diastolic Function MV E Peak Velocity 94 cm/s MV A Peak Velocity 75 cm/s MV E/A 1.3 MV Decel Time (PW) 234 ms MV Annular TDI MV E/e' (Septal) 7.0 MV E/e' (Lateral) 4.8 MV E/e' (Average) 5.9 Tricuspid Valve Name Value Normal Estimated PAP/RSVP RA Pressure 5 mmHg <=5 TV Annular TDI TV Lateral Tracy s' Velocity 10.4 cm/s >=9.5 Aortic Valve Name Value Normal AV Doppler AV Peak Velocity 108 cm/s AV Peak Gradient 5 mmHg AV Mean Gradient 3 mmHg AV VTI 25 cm AV Area (Cont Eq VTI) 2.6 cm2 >=3.0 AV Area (Cont Eq Praveen) 2.5 cm2 AV DI (Praveen) 0.80 AV Regurgitation 2D LVOT Area 3.2 cm2 Ventricles Name Value Normal LV Dimensions 2D/MM IVS Diastolic Thickness (2D) 0.7 cm 0.6-1.0 LVID Diastole (2D) 4.8 cm 3.8-5.2 LVIW Diastolic Thickness (2D) 0.6 cm 0.6-0.9 LVID Systole (2D) 3.3 cm 2.2-3.5 LVOT Diameter 2.0 cm LV Mass (2D Cubed) 99.58 g 67.00-162.00 LV Mass Index (2D Cubed) 53 g/m2 43-95 Relative Wall Thickness (2D) 0.27 <=0.42 LV Fractional Shortening/Ejection Fraction 2D/MM LV Fractional Shortening (2D) 32 % 27-45 LV EF (2D Teichholz) 60 % LV Diastolic Volume (4C MOD) 83 ml LV EF (4C MOD) 64 % LV Diastolic Volume (2C MOD) 89 ml LV EF (2C MOD) 62 % LV Diastolic Volume (BP MOD) 86 ml 46-106 LV Diastolic Volume Index (BP MOD) 46 ml/m2 29-61 LV Systolic Volume (BP MOD) 32 ml 14-42 LV Systolic Volume Index (BP MOD) 17 ml/m2 8-24 LV EF (BP MOD) 63 % 54-74 LV Diastolic Length (4C) 8.0 cm LV Systolic Length (4C) 6.8 cm LV Stroke Volume (4C MOD) 53 ml Atria Name Value Normal LA Dimensions LA Volume (4C A-L) 35 ml LA Volume (BP A-L) 39 ml RA Dimensions RA Systolic Major Flora Length (4C) 4.7 cm 2.2-2.8 RA Area (4C) 15.2 cm2 <=18.0 Report Signatures
[2024-12-25] MEDS: HYDROcodone/acetaminophen (*CRX) 5-325 MG TABLET 1 TAB PO ×3 (05:12→18:27)
[2024-12-25 05:54] LABS: Hematocrit 38.2 % (37.0-47.0); Hemoglobin 12.2 g/dL (12.0-15.0); Mean Corpuscular HGB Conc 31.9 g/dl (32-36); Mean Corpuscular Hemoglobin 28.7 pg (26-34); Mean Corpuscular Volume 89.9 fl (80-100); Platelet Count Result 263 k/mm3 (150-375); Red Blood Count 4.25 M/mm3 (4.2-5.4); White Blood Count 7.6 K/mm3 (4.5-10.0)
[2024-12-25] MEDS: LINACLOTIDE 72 MCG CAPSULE PO (06:00)
[2024-12-25 06:17] LABS: Alanine Aminotransferase 10 U/L (6-35); Albumin Level 3.4 g/dL (3.5-5.1); Alkaline Phosphatase 37 U/L (38-126); Anion Gap 6 mmol/L (4-12); Aspartate Amino Transferase 13 U/L (14-36); Bilirubin,Total 0.3 mg/dL (0.2-1.3); Blood Urea Nitrogen 11 mg/dL (7-17); Calcium 8.7 mg/dL (8.4-10.2); Carbon Dioxide 26 mmol/L (22-30); Chloride 106 mmol/L (98-107); Estimated CRCL calculation 86 ml/min; Estimated Glomerular Filt Rate > 60; Glucose 90 mg/dL (65-110); Magnesium 1.8 mg/dL (1.6-2.3); Potassium 3.5 mmol/L (3.4-5.0); Sodium 138 mmol/L (137-145); Total Protein 5.9 g/dL (6.3-8.2)
--- NOTE | 2024-12-25 07:19 | P.PNIM_ITS ---
Progress Note: A&P Assessment and Plan (1) Portal vein thrombosis: Code(s): I81 - Portal vein thrombosis Status: Acute Assessment and Plan: * x4 month history of n/v and abdominal pain, worse in the past week * CT abd/pelvis: Mild esophagitis/gastritis. Hepatomegaly. Nonocclusive acute appearing splenic portal vein thrombosis. * No history of blood clots, but + history A fib * LFTs wnl * Abd US unremarkable * Gen surgery, appreciate recommendations * Continue Lovenox * Conservative non-surgical management * Monitor serial abdominal exams (2) Acute thrombosis of splenic vein: Code(s): I82.890 - Acute embolism and thrombosis of other specified veins Status: Acute Assessment and Plan: * See above (3) Esophagitis with gastritis: Code(s): K29.70 - Gastritis, unspecified, without bleeding; K20.90 - Esophagitis, unspecified without bleeding Status: Acute Assessment and Plan: * Abdominal/Pelvis CT: Mild esophagitis/gastritis. Hepatomegaly. Nonocclusive acute appearing splenic portal vein thrombosis. * Famotidine 20mg q12 PO (4) Hepatomegaly: Code(s): R16.0 - Hepatomegaly, not elsewhere classified Status: Acute Assessment and Plan: * Abdominal/Pelvis CT: Hepatomegaly * RUQ US: Unremarkable * LFTs wnl * Currently being worked up for this issue at [facility] in [place] * Also seeing [facility]/oncologist * Will encourage to continue outpt follow up evaluations (5) Paroxysmal atrial fibrillation: Code(s): I48.0 - Paroxysmal atrial fibrillation Status: Acute Assessment and Plan: * Keep serum potassium >4 and keep magnesium >2 * Chronic, stable * lovenox initated * Echocardiogram ordered (6) Gastroesophageal reflux disease: Code(s): K21.9 - Gastro-esophageal reflux disease without esophagitis Status: Acute Assessment and Plan: * Continue Omeprazole * Pepcid 20mg q12hr PO (7) Chronic obstructive pulmonary disease: Code(s): J44.9 - Chronic obstructive pulmonary disease, unspecified Status: Acute Assessment and Plan: * Monitor vital signs, I&Os, neuro status and patient is a fall risk * Monitor serum electrolytes, cultures and CBC * Monitor Oxygen saturation, Oxygen via NC; wean oxygen as tolerated, keep SpO2 greater than 88% * Stable, no SOB, physical exam findings Subjective Date/time seen: 12/25/24 07:19 Interval history: 34-year-old female with history of IBS with constipation, GERD, peptic ulcer, kidney stones, hepatomegaly currently being worked up, SZLE, pericarditis, pericarditis, afib, COPD, hypothyroidism, anemia, depression, anxiety, and bipolar disorder who presents to ED with complaints of abdominal pain. 12/25/2024 Patient sitting comfortably in bed at time of exam. Denies any chest pain, sob, n/v at this time. Still endorses some generalized abdominal pain to palpation. General surgery following, agree with no surgical intervention at this time, will monitor serial abdominal exams over the next few days but at this time will manage conservatively. Review of Systems Review of Systems: 12 systems were reviewed and are negativ e except for as per HPI. Exam Narrative: General: Nontoxic-appearing female in the semi-Leong position in bed in no distress. Weight: 72.6 kg. BMI: 25.1. HEENT: PERRL, EOMI. Sclera anicteric. Oral mucosa moist. Neck: Supple. Respiratory: Lungs are clear to auscultation bilaterally. Cardiovascular: Regular rate and rhythm with S1-S2. Gastrointestinal: Abdomen is soft and nondistended with positive bowel sounds. She is quite tender to palpation throughout the periumbilical region, more so in the right lower quadrant. Mild guarding but no rebound tenderness. Does endorse improvement in abdominal pain at rest but upon palpation does still illicit some tenderness. Skin: Warm and dry. No jaundice. Extremities: No cyanosis, clubbing, or edema. Radial and pedal pulses intact. Negative Maximiliano sign bilaterally. Neurological: Alert. Cranial nerves 2-12 are grossly intact. No gross focal deficits to casual conversation. Psychiatric: Pleasant and cooperative with normal mood and affect. Judgment and insight intact. Objective Data Vital Signs Vital Signs: Vital Signs - 24 hr 12/24/24 12:12 12/24/24 15:45 12/24/24 18:09 Temperature 98.2 F 97.4 F L Pulse Rate 63 62 67 Respiratory Rate 15 18 18 Blood Pressure 100/63 132/77 104/59 L Pulse Oximetry 100 98 100 Oxygen Delivery Room Air 12/24/24 21:00 12/24/24 21:00 12/25/24 00:00 Temperature 97.9 F Pulse Rate 56 L 53 L Respiratory Rate 18 Blood Pressure 114/66 Pulse Oximetry 100 Oxygen Delivery Room Air 12/25/24 04:00 12/25/24 05:23 Temperature 97.6 F Pulse Rate 63 66 Respiratory Rate 14 Blood Pressure 101/59 L Pulse Oximetry 100 Oxygen Delivery Intake/Output Intake/Output: Intake & Output 12/22/24 12/23/24 12/24/24 12/25/24 23:59 23:59 23:59 23:59 Intake Total 1000 300 Balance 1000 300 Meds/Results Medications: Active Medications Generic Name Dose Route Start Last Admin Trade Name Freq PRN Reason Stop Dose Admin Acetaminophen 650 mg 12/24/24 19:53 Acetaminophen 325 Mg Tablet PO Q4H PRN Mild Pain (1-3) or Fever Hydrocodone Bitart/Acetaminophen 1 tab 12/25/24 04:51 12/25/24 05:12 Hydrocodone/Acetaminophen (*Crx) 5-325 Mg Tablet PO 1 tab Q4H PRN Administration pain 4-6 Albuterol 1 puff 12/25/24 04:51 Albuterol Sulfate (*Sp) Aerosol 1 Puff INHALATION Q4HRT PRN Shortness Of Breath Or Wheezing Aspirin 81 mg 12/25/24 08:00 Aspirin 81 Mg Chewable Tablet PO DAILY@0800 [facility] Calcium Carbonate 500 mg 12/25/24 09:00 Calcium Carbonate (Oscal) 500 Mg Tablet PO QAM [facility] Cyclobenzaprine HCl 10 mg 12/25/24 21:00 Cyclobenzaprine Hcl 10 Mg Tablet PO HS [facility] Diazepam 10 mg 12/25/24 04:51 Diazepam (*Crx) 10 Mg Tablet PO QHS PRN anxiety Diltiazem HCl 30 mg 12/25/24 09:00 Diltiazem Hcl 30 Mg Tablet PO Q12HR [facility] Duloxetine HCl 60 mg 12/25/24 09:00 Duloxetine Hcl 60 Mg Capsule.Dr PO DAILY [facility] Enoxaparin Sodium 71 mg 12/25/24 09:00 Enoxaparin 80 Mg/0.8 Ml Syringe SUB-Q Q12HR [facility] Escitalopram Oxalate 10 mg 12/25/24 21:00 Escitalopram Oxalate 10 Mg Tablet PO HS [facility] Famotidine 20 mg 12/25/24 09:00 Famotidine 20 Mg Tablet BY MOUTH Q12HR [facility] Ferrous Sulfate 325 mg 12/25/24 09:00 Ferrous Sulfate [address] PO BID [facility] Fluticasone Propionate 1 spray 12/25/24 09:00 Fluticasone Propionate 0.05% Na Spr 16 Gm Btl (*Bkc) NASAL DAILY [facility] Hydrocortisone 1 applic 12/25/24 09:00 Hydrocortisone 1% 30 Gm Cream TOPICAL DAILY [facility] Hydromorphone HCl 0.5 mg 12/24/24 19:53 12/24/24 22:45 Hydromorphone Hcl Inj (*Crx) 2 Mg/Ml Vial IV PUSH 0.5 mg Q4H PRN Administration Pain Rated 7-10 Linaclotide 72 mcg 12/25/24 06:30 12/25/24 06:00 Linaclotide 72 Mcg Capsule PO 72 mcg DAILY@0630 [facility] Administration Metoprolol Succinate 50 mg 12/25/24 21:00 Metoprolol Succinate Ext Rel 50 Mg Tabcr PO HS [facility] Ondansetron HCl 4 mg 12/24/24 19:53 Ondansetron Inj 4 Mg/2 Ml Vial IV PUSH Q4H PRN Nausea Pantoprazole Sodium 40 mg 12/25/24 09:00 Pantoprazole 40 Mg Tablet PO Q12HR [facility] Perflutren Lipid Microsphere 0 ml 12/25/24 04:50 Perflutren Lipid Microspheres 1.5 Ml Vial Diluted To 10 Ml Total Volume IV PUSH 12/28/24 04:50 ONCE PRN adequate visualization Protocol Fluticasone/Salmeterol 2 puff 12/25/24 08:00 Fluticasone/Salmeterol 115-21 Mcg Inhaler 1 Puff INHALATION Q12HRT [facility] Valacyclovir HCl 500 mg 12/25/24 09:00 Valacyclovir Hcl 500 Mg Tablet PO DAILY [facility] Vitamin B Complex 1 cap 12/25/24 09:00 Vitamin B Complex Capsule PO DAILY [facility] Radiology Results: ITS Impressions Abdomen Ultrasound 12/24/24 18:24 IMPRESSION: Normal limited abdominal ultrasound findings. Abdomen/Pelvis CT 12/24/24 19:01 IMPRESSION: Mild esophagitis/gastritis. Hepatomegaly. Nonocclusive acute appearing splenic portal vein thrombosis. Labs Labs: Laboratory Results - last 24 hr 12/24/24 12/24/24 12/25/24 15:44 15:47 05:23 WBC 11.3 H 7.6 RBC 4.92 4.25 Hgb 13.9 12.2 Hct 44.4 38.2 MCV 90.2 89.9 MCH 28.3 28.7 MCHC 31.3 L 31.9 L RDW 12.4 12.4 Plt Count 322 263 MPV 10.3 10.9 H Immature Gran % (Auto) 0.4 Neut % (Auto) 66.3 Lymph % (Auto) 24.9 [place] % (Auto) 6.8 Eos % (Auto) 1.1 Baso % (Auto) 0.5 Lymph # (Auto) 2.82 [place] # (Auto) 0.8 H Eos # (Auto) 0.1 Baso # (Auto) 0.1 Abs Immat Gran (auto) 0.05 H Absolute Neuts (auto) 7.5 H Absolute Nucleated RBC 0.000 Nucleated RBC % 0.0 Sodium 140 138 Potassium 4.0 3.5 Chloride 105 106 Carbon Dioxide 26 26 Anion Gap 9 6 BUN 8 11 Creatinine 0.68 L 0.78 Estim Creat Clear Calc 97 86 Estimated GFR > 60 > 60 Glucose 88 90 Calcium 9.4 8.7 Magnesium 1.8 Total Bilirubin 0.4 0.3 AST 15 13 L ALT 12 10 Alkaline Phosphatase 41 37 L Total Protein 7.5 5.9 L Albumin 4.4 3.4 L Lipase 24 Urine Color Yellow Urine Appearance Clear Urine pH 6.5 Ur Specific [place] 1.013 Urine Protein Negative Urine Glucose (UA) Negative Urine Ketones Negative Ur Blood (Man) Negative Urine Nitrate Negative Urine Bilirubin Negative Urine Urobilinogen 0.2 Leukocyte Esterase Rfl Negative POC Urine HCG, Qual Negative Urine Opiates Screen Negative Urine Methadone Screen Negative Ur Barbiturates Screen Negative Ur Phencyclidine Scrn Negative Ur Amphetamine Screen Negative U Benzodiazepines Scrn Negative Urine Cocaine Screen Negative U Cannabinoids Screen Positive A Quality VTE Prophylaxis VTE prophylaxis: pharmacologic ordered (currently on LMWH)
[2024-12-25] MEDS: ONDANSETRON INJ 4 MG/2 ML VIAL IV PUSH ×2 (08:26→13:09)
[2024-12-25] MEDS: HYDROmorphone HCL INJ (*CRX) 2 MG/ML VIAL 0.5 MG IV PUSH ×2 (08:26→21:27)
[2024-12-25] MEDS: FLUTICASONE/SALMETEROL 115-21 MCG INHALER 1 PUFF 2 PUFF INHALATION ×2 (08:59→20:25)
[2024-12-25] MEDS: FERROUS SULFATE 325 MG TABLET DR PO ×2 (09:45→17:02)
[2024-12-25] MEDS: PANTOPRAZOLE 40 MG TABLET PO ×2 (09:45→20:20)
[2024-12-25] MEDS: VITAMIN B COMPLEX CAPSULE 1 CAP PO (09:45)
[2024-12-25] MEDS: DULoxetine HCL 60 MG CAPSULE.DR PO (09:45)
[2024-12-25] MEDS: FAMOTIDINE 20 MG TABLET BY MOUTH ×2 (09:45→20:20)
[2024-12-25] MEDS: CALCIUM CARBONATE (OSCAL) 500 MG TABLET PO (09:45)
[2024-12-25] MEDS: ENOXAPARIN 80 MG/0.8 ML SYRINGE 71 MG SUB-Q ×2 (09:46→20:20)
[2024-12-25] MEDS: ASPIRIN 81 MG CHEWABLE TABLET PO (09:46)
[2024-12-25] MEDS: HYDROCORTISONE 1% 30 GM CREAM 1 APPLIC TOPICAL (09:47)
--- NOTE | 2024-12-25 09:47 | P.CONGS_ITS ---
Assessment and Plan Assessment and plan (1) Portal vein thrombosis: Code(s): I81 - Portal vein thrombosis Status: Acute Assessment and Plan: Patient presented to the ED yesterday with 4 months of abdominal pain, increased in severity in the past week. She also notes associated nausea and vomiting, exacerbated by eating. No history of blood clots the patient is aware of. She does have paroxysmal AFib. Liver enzymes fairly normal aside from slight decreases in AST and alk-phos. Abdominal ultrasound was normal, however abdominal CT demonstrated trauma in the splenic vein, likely extending into main portal vein and filling defects in the distal main portal vein, right portal vein, and several proximal branches. Hepatomegaly also noted. * Continue Lovenox. No immediate surgical intervention necessary at this time. We will continue to monitor with serial abdominal exams. Will discuss with surgeon on-call. (2) Paroxysmal atrial fibrillation: Code(s): I48.0 - Paroxysmal atrial fibrillation Status: Acute Assessment and Plan: Echo performed this morning. Follow-up with the results. (3) Chronic obstructive pulmonary disease: Code(s): J44.9 - Chronic obstructive pulmonary disease, unspecified Status: Acute (4) Irritable bowel syndrome with constipation: Code(s): K58.1 - Irritable bowel syndrome with constipation Status: Acute History of Present Illness Consult details Consult date: 12/25/24 Reason for consult: other (Portal vein thrombosis acute ) Requesting physician: Bryan Bartholomew MD Narrative: Patient is a 34-year-old female with history of paroxysmal AFib (not on anticoagulation), pericarditis, irritable bowel syndrome, GERD, peptic ulcer disease, COPD who we have been asked to see in surgical consultation for portal vein thrombosis. Patient notes that she has had abdominal pain for around 4 months but that it has increased in severity in the past 5 days. She describes the pain as being epigastric and feeling like it is going underneath her chest. She states that it radiates to her back and around her ribcage. She notes associated nausea and vomiting, and a decrease in appetite. She notes chronic constipation diarrhea from irritable bowel syndrome. She also endorses lower extremity edema. She follows with temporary data entry clerk, but due to insurance changes she was unable to follow-up. She states that she is scheduled to see a new temporary data entry clerk in February. She is not on any daily blood thinners at home aside from a daily baby aspirin. Upon admission to the ED, WBC was 11.3, now down to 7.6. AST, alk-phos, total protein, albumin all decreased today. Normal lipase. Abdominal ultrasound revealed normal liver, normal hepatopetal flow in the main portal vein, normal gallbladder. CT abdomen/pelvis demonstrated a nonocclusive thrombus in the splenic vein just prior to its confluence with the inferior anterior mesenteric vein, likely extending into the main portal vein but partially obscured by unopacified blood. More discrete and linear appearing filling defects apparent in the distal main portal vein, right portal vein and several proximal branches. Hepatomegaly also noted. Patient was started on Lovenox. Afebrile. She states that the medication has helped to decrease her pain, as well as her nausea. [facility] Past Medical History Medical History (Updated 12/25/24 @ 04:43 by Yolanda Nicholson PA-C) Hepatomegaly Hypothyroidism Degenerative disc disease Kidney stones Pericarditis Paroxysmal atrial fibrillation Peptic ulcer Migraine Depression with anxiety Chronic obstructive pulmonary disease HSV-2 infection HSV-1 infection Irritable bowel syndrome with constipation Gastroesophageal reflux disease Esophagitis Anemia Bipolar 1 disorder Surgical History Surgical History History of cardiac catheterization History of gynecologic surgery (10/2022) Laparoscopic bilateral salpingectomy Hysterectomy Dilation and curettage Endometrial ablation H/O hand surgery History of delivery x2 Family History Family History Father Diabetes mellitus Heart disease Social History Social History Social History: Surrogate medical decision maker: Miguel Castellano, significant other. Code status: Full code. Smoking packs per day: 2 Smoking cigarettes per day: 40.0 Years smoked: 16 Smoking pack-years: 32.00 Smoking status: Former smoker Tobacco type: cigarettes Smoking end date: 03/27/22 Alcohol intake: current Drinks per week: 1 Alcohol use details: Rare alcohol use in moderation. Substance use: current Substance use type: marijuana Last use: 12/22/24 Do You Feel Safe in your Home?: Yes Lack of Transportation: No Lack of Food: Never True Current Housing: I Have Housing Concerned About Future Housing: No Difficulty Paying Gas/Electric Bills: YES Difficulty Paying for Meds: No Currently Unemployed: YES Education: High School Diploma/GED Difficulty w/ Childcare or Family Care: No Living arrangements: with family Additional living arrangements comments: Lives with maria a and her 6 children. Occupation/Education: occupation Spiritual care concerns: No Meds Home Medications and Allergies Home Medications ?Medication ?Instructions ?Recorded ?Confirmed ?Type duloxetine 60 mg capsule,delayed 60 mg PO DAILY 11/09/19 12/24/24 History release vitamin B complex (B 1 tablet PO DAILY 11/09/19 12/24/24 History Complex-Vitamin B12 tablet) albuterol sulfate 90 mcg/actuation 1 puff inhalation Q4-6H PRN 09/10/22 12/24/24 History aerosol inhaler Shortness Of Breath Or Wheezing metoprolol succinate 50 mg 50 mg PO HS 09/10/22 12/24/24 History tablet,extended release 24 hr blood-gluc meter-wrist BP mntr 09/17/22 12/24/24 History ([employer] Glucose/Blood Pressure kit) fluticasone propionate 50 1 spray intranasal DAILY 09/17/22 12/24/24 History mcg/actuation nasal spray,suspension (Flonase Allergy Relief) ergocalciferol (vitamin D2) 1,250 50,000 mcg PO WEEKLY 10/04/22 12/24/24 History mcg (50,000 unit) capsule cyclobenzaprine 10 mg tablet 10 mg PO HS 10/13/22 12/24/24 History ferrous sulfate 325 mg (65 mg 325 mg PO BID 10/13/22 12/24/24 History iron) tablet linaclotide 72 mcg capsule 72 mcg PO DAILY 1 month #30 caps 10/29/22 12/24/24 Rx (Linzess) acetaminophen 500 mg tablet 500 mg PO Q6H PRN pain #30 tabs 11/18/22 12/24/24 Rx ibuprofen 600 mg tablet 600 mg PO Q6H PRN pain #30 tabs 11/18/22 12/24/24 Rx sumatriptan succinate 25 mg tablet 25 mg PO .COMPLEX 12/06/22 12/24/24 History omeprazole 40 mg capsule,delayed See Rx Instructions .Route 12/13/22 12/24/24 Rx release .COMPLEX #90 caps calcium carbonate (Calcium 600) 600 mg PO DAILY 08/10/23 12/24/24 History aspirin 81 mg chewable tablet 81 mg PO DAILY 09/23/23 12/24/24 History famotidine 20 mg tablet See Rx Instructions .Route 10/25/23 12/24/24 Rx .COMPLEX #60 tabs valacyclovir 500 mg tablet 500 mg PO DAILY #60 tabs 01/16/24 12/24/24 Rx (Valtrex) diazepam 10 mg tablet 10 mg PO QHS PRN anxiety 10/29/24 12/24/24 History diltiazem HCl 30 mg tablet 30 mg PO BID 12/24/24 12/24/24 History escitalopram oxalate 10 mg tablet 10 mg PO HS 12/24/24 12/24/24 History fluticasone 250 mcg-salmeterol 50 1 inh inhalation Q12H 12/24/24 12/24/24 History mcg/dose blistr powdr for inhalation hydrocodone 5 mg-acetaminophen 325 1 tablet PO Q4H PRN pain 12/24/24 12/24/24 History mg tablet hydrocortisone 2.5 % topical cream 1 applic topical DAILY 12/24/24 12/24/24 History with perineal applicator ketorolac 10 mg tablet 10 mg PO Q6H PRN pain 12/24/24 12/24/24 History ondansetron 4 mg disintegrating 4 mg translingual Q8H PRN nausea 12/24/24 12/24/24 History tablet and vomiting Allergies Allergy/AdvReac Type Severity Reaction Status Date / Time nitrofurantoin (From Allergy Severe Swelling Verified 12/24/24 23:59 Macrobid) of Lip/Tongue/Throat Vital Signs Vital Signs - 24 hr 12/24/24 12:12 12/24/24 15:45 12/24/24 18:09 Temperature 98.2 F 97.4 F L Pulse Rate 63 62 67 Respiratory Rate 15 18 18 Blood Pressure 100/63 132/77 104/59 L Pulse Oximetry 100 98 100 Oxygen Delivery Room Air 12/24/24 21:00 12/24/24 21:00 12/25/24 00:00 Temperature 97.9 F Pulse Rate 56 L 53 L Respiratory Rate 18 Blood Pressure 114/66 Pulse Oximetry 100 Oxygen Delivery Room Air 12/25/24 04:00 12/25/24 05:23 12/25/24 08:59 Temperature 97.6 F Pulse Rate 63 66 Respiratory Rate 14 Blood Pressure 101/59 L Pulse Oximetry 100 98 Oxygen Delivery Room Air 12/25/24 08:59 Temperature Pulse Rate 54 L Respiratory Rate 20 Blood Pressure Pulse Oximetry Oxygen Delivery Exam 2 Const: General: comfortable and no acute distress Eyes: General: appearance normal, both eyes and all related structures Neck: Neck: supple Resp: Effort & Inspection: normal respiratory effort Cardio: Rate: regular rate GI: Inspection: non-distended GI Palp: Yes Soft to palpation, Yes Tenderness to palpation present (GI) and Yes Guarding due to palpation present (GI) Other: Tenderness diffusely across the epigastric region Skin: General skin exam: normal color and no rashes or lesions noted Neuro: Speech: normal speech Extrem: General: normal to inspection Psych: Mental Status: mental status grossly normal Results Labs 12/25/24 05:23 12/25/24 05:23 Labs: Abnormal lab results 12/24/24 12/25/24 Range/Units 15:44 05:23 WBC 11.3 H (4.5-10.0) K/mm3 MCHC 31.3 L 31.9 L (32-36) g/dl MPV 10.9 H (7.4-10.4) fl [place] # (Auto) 0.8 H (0.1-0.6) K/mm3 Abs Immat Gran (auto) 0.05 H (0.00-0.031) K/mm3 Absolute Neuts (auto) 7.5 H (1.3-6.7) K/mm3 Creatinine 0.68 L (0.7-1.0) mg/dL AST 13 L (14-36) U/L Alkaline Phosphatase 37 L (38-126) U/L Total Protein 5.9 L (6.3-8.2) g/dL Albumin 3.4 L (3.5-5.1) g/dL U Cannabinoids Screen Positive A (Negative) Diabetes panel 12/24/24 12/25/24 Range/Units 15:44 05:23 Sodium 140 138 (137-145) mmol/L Potassium 4.0 3.5 (3.4-5.0) mmol/L Chloride 105 106 (98-107) mmol/L Carbon Dioxide 26 26 (22-30) mmol/L BUN 8 11 (7-17) mg/dL Creatinine 0.68 L 0.78 (0.7-1.0) mg/dL Glucose 88 90 (65-110) mg/dL Calcium 9.4 8.7 (8.4-10.2) mg/dL AST 15 13 L (14-36) U/L ALT 12 10 (6-35) U/L Alkaline Phosphatase 41 37 L (38-126) U/L Total Protein 7.5 5.9 L (6.3-8.2) g/dL Albumin 4.4 3.4 L (3.5-5.1) g/dL Calcium panel 12/24/24 12/25/24 Range/Units 15:44 05:23 Calcium 9.4 8.7 (8.4-10.2) mg/dL Albumin 4.4 3.4 L (3.5-5.1) g/dL Pituitary panel 12/24/24 12/25/24 Range/Units 15:44 05:23 Sodium 140 138 (137-145) mmol/L Potassium 4.0 3.5 (3.4-5.0) mmol/L Chloride 105 106 (98-107) mmol/L Carbon Dioxide 26 26 (22-30) mmol/L BUN 8 11 (7-17) mg/dL Creatinine 0.68 L 0.78 (0.7-1.0) mg/dL Glucose 88 90 (65-110) mg/dL Calcium 9.4 8.7 (8.4-10.2) mg/dL Adrenal panel 12/24/24 12/25/24 Range/Units 15:44 05:23 Sodium 140 138 (137-145) mmol/L Potassium 4.0 3.5 (3.4-5.0) mmol/L Chloride 105 106 (98-107) mmol/L Carbon Dioxide 26 26 (22-30) mmol/L BUN 8 11 (7-17) mg/dL Creatinine 0.68 L 0.78 (0.7-1.0) mg/dL Glucose 88 90 (65-110) mg/dL Calcium 9.4 8.7 (8.4-10.2) mg/dL Total Bilirubin 0.4 0.3 (0.2-1.3) mg/dL AST 15 13 L (14-36) U/L ALT 12 10 (6-35) U/L Alkaline Phosphatase 41 37 L (38-126) U/L Total Protein 7.5 5.9 L (6.3-8.2) g/dL Albumin 4.4 3.4 L (3.5-5.1) g/dL All other labs normal.
[2024-12-25] MEDS: FLUTICASONE PROPIONATE 0.05% NA SPR 16 GM BTL (*BKC) 1 SPRAY NASAL (09:52)
[2024-12-25] MEDS: METOPROLOL SUCCINATE EXT REL 50 MG TABCR PO (20:20)
[2024-12-25] MEDS: ESCITALOPRAM OXALATE 10 MG TABLET PO (20:20)
[2024-12-25] MEDS: CYCLOBENZAPRINE HCL 10 MG TABLET PO (20:20)
[2024-12-26] VITALS (13 sets, daily range): BP systolic 105–109; BP diastolic 55–65; PULSE 53–70; RESP 14–18; TEMP 36.1–36.7; O2SAT 92–98
[2024-12-26] MEDS: LINACLOTIDE 72 MCG CAPSULE PO (05:53)
--- NOTE | 2024-12-26 06:56 | P.PNIM_ITS ---
Progress Note: A&P Assessment and Plan (1) Portal vein thrombosis: Code(s): I81 - Portal vein thrombosis Status: Acute Assessment and Plan: * x4 month history of n/v and abdominal pain, worse in the past week * CT abd/pelvis: Mild esophagitis/gastritis. Hepatomegaly. Nonocclusive acute appearing splenic portal vein thrombosis. * No history of blood clots, but + history A fib * LFTs wnl * Abd US unremarkable * Gen surgery, appreciate recommendations * Continue Lovenox * Conservative non-surgical management * Monitor serial abdominal exams * 12/26: Stable, continue monitor abd exam * Repeat CT abd/pelvis tomorrow (2) Acute thrombosis of splenic vein: Code(s): I82.890 - Acute embolism and thrombosis of other specified veins Status: Acute Assessment and Plan: * See above (3) Esophagitis with gastritis: Code(s): K29.70 - Gastritis, unspecified, without bleeding; K20.90 - Esophagitis, unspecified without bleeding Status: Acute Assessment and Plan: * Abdominal/Pelvis CT: Mild esophagitis/gastritis. Hepatomegaly. Nonocclusive acute appearing splenic portal vein thrombosis. * Famotidine 20mg q12 PO (4) Hepatomegaly: Code(s): R16.0 - Hepatomegaly, not elsewhere classified Status: Acute Assessment and Plan: * Abdominal/Pelvis CT: Hepatomegaly * RUQ US: Unremarkable * LFTs wnl * Currently being worked up for this issue at [facility] in [place] * Also seeing Bartender Manager/oncologist * Will encourage to continue outpt follow up evaluations (5) Paroxysmal atrial fibrillation: Code(s): I48.0 - Paroxysmal atrial fibrillation Status: Acute Assessment and Plan: * Keep serum potassium >4 and keep magnesium >2 * Chronic, stable * lovenox initated * Echocardiogram ordered (6) Gastroesophageal reflux disease: Code(s): K21.9 - Gastro-esophageal reflux disease without esophagitis Status: Acute Assessment and Plan: * Continue Omeprazole * Pepcid 20mg q12hr PO (7) Chronic obstructive pulmonary disease: Code(s): J44.9 - Chronic obstructive pulmonary disease, unspecified Status: Acute Assessment and Plan: * Monitor vital signs, I&Os, neuro status and patient is a fall risk * Monitor serum electrolytes, cultures and CBC * Monitor Oxygen saturation, Oxygen via NC; wean oxygen as tolerated, keep SpO2 greater than 88% * Stable, no SOB, physical exam findings Subjective Date/time seen: 12/26/24 06:56 Interval history: 34-year-old female with history of IBS with constipation, GERD, peptic ulcer, kidney stones, hepatomegaly currently being worked up, SZLE, pericarditis, pericarditis, afib, COPD, hypothyroidism, anemia, depression, anxiety, and bipolar disorder who presents to ED with complaints of abdominal pain. 12/26/2024 Patient sitting comfortably in bed at time of exam. Denies any chest pain, sob, n/v at this time. No surgical intervention at this time, gen surg to continue following. Maintain current anti-emetic regimen. No other complaints or concerns. Review of Systems Review of Systems: 12 systems were reviewed and are negativ e except for as per HPI. Exam Narrative: General: Nontoxic-appearing female in the semi-Leong position in bed in no distress. Weight: 72.6 kg. BMI: 25.1. HEENT: PERRL, EOMI. Sclera anicteric. Oral mucosa moist. Neck: Supple. Respiratory: Lungs are clear to auscultation bilaterally. Cardiovascular: Regular rate and rhythm with S1-S2. Gastrointestinal: Abdomen is soft and nondistended with positive bowel sounds. She is quite tender to palpation throughout the periumbilical region, more so in the right lower quadrant. Mild guarding but no rebound tenderness. Does endorse improvement in abdominal pain at rest but upon palpation does still illicit some tenderness. Skin: Warm and dry. No jaundice. Extremities: No cyanosis, clubbing, or edema. Radial and pedal pulses intact. Negative Maximiliano sign bilaterally. Neurological: Alert. Cranial nerves 2-12 are grossly intact. No gross focal deficits to casual conversation. Psychiatric: Pleasant and cooperative with normal mood and affect. Judgment and insight intact. Objective Data Vital Signs Vital Signs: Vital Signs - 24 hr 12/25/24 08:00 12/25/24 08:59 12/25/24 08:59 Temperature Pulse Rate 78 54 L Respiratory Rate 20 Blood Pressure Pulse Oximetry 98 Oxygen Delivery Room Air 12/25/24 09:45 12/25/24 12:00 12/25/24 14:00 Temperature 97.7 F Pulse Rate 63 74 Respiratory Rate 15 Blood Pressure 111/50 L Pulse Oximetry 100 Oxygen Delivery Room Air 12/25/24 16:00 12/25/24 19:54 12/25/24 20:00 Temperature 97.3 F L Pulse Rate 59 L 62 61 Respiratory Rate 16 Blood Pressure 114/61 Pulse Oximetry 98 Oxygen Delivery 12/25/24 20:20 12/25/24 20:25 12/25/24 20:25 Temperature Pulse Rate 74 74 Respiratory Rate 16 Blood Pressure Pulse Oximetry 98 98 Oxygen Delivery Room Air Room Air 12/26/24 00:00 12/26/24 06:00 12/26/24 06:11 Temperature 97.0 F L Pulse Rate 58 L 54 L 53 L Respiratory Rate 16 Blood Pressure 105/65 Pulse Oximetry 98 Oxygen Delivery Intake/Output Intake/Output: Intake & Output 12/23/24 12/24/24 12/25/24 12/26/24 23:59 23:59 23:59 23:59 Intake Total 1000 660 420 Balance 1000 660 420 Meds/Results Medications: Active Medications Generic Name Dose Route Start Last Admin Trade Name Blayneq PRN Reason Stop Dose Admin Acetaminophen 650 mg 12/24/24 19:53 Acetaminophen 325 Mg Tablet PO Q4H PRN Mild Pain (1-3) or Fever Hydrocodone Bitart/Acetaminophen 1 tab 12/25/24 04:51 12/25/24 18:27 Hydrocodone/Acetaminophen (*Crx) 5-325 Mg Tablet PO 1 tab Q4H PRN Administration pain 4-6 Albuterol 1 puff 12/25/24 04:51 Albuterol Sulfate (*Sp) Aerosol 1 Puff INHALATION Q4HRT PRN Shortness Of Breath Or Wheezing Aspirin 81 mg 12/25/24 08:00 12/25/24 09:46 Aspirin 81 Mg Chewable Tablet PO 81 mg DAILY@0800 PONCE Administration Calcium Carbonate 500 mg 12/25/24 09:00 12/25/24 09:45 Calcium Carbonate (Oscal) 500 Mg Tablet PO 500 mg QAM PONCE Administration Cyclobenzaprine HCl 10 mg 12/25/24 21:00 12/25/24 20:20 Cyclobenzaprine Hcl 10 Mg Tablet PO 10 mg HS PONCE Administration Diazepam 10 mg 12/25/24 04:51 Diazepam (*Crx) 10 Mg Tablet PO QHS PRN anxiety Diltiazem HCl 30 mg 12/25/24 09:00 12/25/24 20:20 Diltiazem Hcl 30 Mg Tablet PO 30 mg Q12HR PONCE Administration Duloxetine HCl 60 mg 12/25/24 09:00 12/25/24 09:45 Duloxetine Hcl 60 Mg Capsule.Dr PO 60 mg DAILY PONCE Administration Enoxaparin Sodium 71 mg 12/25/24 09:00 12/25/24 20:20 Enoxaparin 80 Mg/0.8 Ml Syringe SUB-Q 71 mg Q12HR PONCE Administration Escitalopram Oxalate 10 mg 12/25/24 21:00 12/25/24 20:20 Escitalopram Oxalate 10 Mg Tablet PO 10 mg HS PONCE Administration Famotidine 20 mg 12/25/24 09:00 12/25/24 20:20 Famotidine 20 Mg Tablet BY MOUTH 20 mg Q12HR PONCE Administration Ferrous Sulfate 325 mg 12/25/24 09:00 12/25/24 17:02 Ferrous Sulfate [address] PO 325 mg BID PONCE Administration Fluticasone Propionate 1 spray 12/25/24 09:00 12/25/24 09:52 Fluticasone Propionate 0.05% Na Spr 16 Gm Btl (*Bkc) NASAL 1 spray DAILY PONCE Administration Hydrocortisone 1 applic 12/25/24 09:00 12/25/24 09:47 Hydrocortisone 1% 30 Gm Cream TOPICAL 1 applic DAILY PONCE Administration Hydromorphone HCl 0.5 mg 12/24/24 19:53 12/25/24 21:27 Hydromorphone Hcl Inj (*Crx) 2 Mg/Ml Vial IV PUSH 0.5 mg Q4H PRN Administration Pain Rated 7-10 Linaclotide 72 mcg 12/25/24 06:30 12/26/24 05:53 Linaclotide 72 Mcg Capsule PO 72 mcg DAILY@0630 PONCE Administration Metoprolol Succinate 50 mg 12/25/24 21:00 12/25/24 20:20 Metoprolol Succinate Ext Rel 50 Mg Tabcr PO 50 mg HS PONCE Administration Ondansetron HCl 4 mg 12/24/24 19:53 12/25/24 13:09 Ondansetron Inj 4 Mg/2 Ml Vial IV PUSH 4 mg Q4H PRN Administration Nausea Pantoprazole Sodium 40 mg 12/25/24 09:00 12/25/24 20:20 Pantoprazole 40 Mg Tablet PO 40 mg Q12HR PONCE Administration Perflutren Lipid Microsphere 0 ml 12/25/24 04:50 Perflutren Lipid Microspheres 1.5 Ml Vial Diluted To 10 Ml Total Volume IV PUSH 12/28/24 04:50 ONCE PRN adequate visualization Protocol Fluticasone/Salmeterol 2 puff 12/25/24 08:00 12/25/24 20:25 Fluticasone/Salmeterol 115-21 Mcg Inhaler 1 Puff INHALATION 2 puff Q12HRT PONCE Administration Valacyclovir HCl 500 mg 12/25/24 09:00 12/25/24 09:46 Valacyclovir Hcl 500 Mg Tablet PO 500 mg DAILY PONCE Administration Vitamin B Complex 1 cap 12/25/24 09:00 12/25/24 09:45 Vitamin B Complex Capsule PO 1 cap DAILY PONCE Administration Radiology Results: ITS Impressions Abdomen Ultrasound 12/24/24 18:24 IMPRESSION: Normal limited abdominal ultrasound findings. Abdomen/Pelvis CT 12/24/24 19:01 IMPRESSION: Mild esophagitis/gastritis. Hepatomegaly. Nonocclusive acute appearing splenic portal vein thrombosis. Quality VTE Prophylaxis VTE prophylaxis: pharmacologic ordered (currently on LMWH)
[2024-12-26 07:34] LABS: Hematocrit 40.2 % (37.0-47.0); Hemoglobin 13.1 g/dL (12.0-15.0); Immature Granulocyte Percent A 0.3 % (0-0.5); Lymphocytes Absolute Auto 2.07 K/mm3 (0.9-3.2); Mean Corpuscular HGB Conc 32.6 g/dl (32-36); Mean Corpuscular Hemoglobin 29.0 pg (26-34); Mean Corpuscular Volume 88.9 fl (80-100); Nucleated Red Blood Cells Absolute Auto 0.000 K/mm3 (0.0-0.012); Nucleated Red Blood Cells Perc 0.0 % (0.0-0.2); Platelet Count Result 281 k/mm3 (150-375); Red Blood Count 4.52 M/mm3 (4.2-5.4); White Blood Count 7.2 K/mm3 (4.5-10.0)
[2024-12-26] MEDS: FLUTICASONE/SALMETEROL 115-21 MCG INHALER 1 PUFF 2 PUFF INHALATION ×2 (07:48→20:18)
[2024-12-26 07:52] LABS: Alanine Aminotransferase 11 U/L (6-35); Albumin Level 4.0 g/dL (3.5-5.1); Alkaline Phosphatase 36 U/L (38-126); Anion Gap 8 mmol/L (4-12); Aspartate Amino Transferase 12 U/L (14-36); Bilirubin,Total 0.5 mg/dL (0.2-1.3); Blood Urea Nitrogen 9 mg/dL (7-17); Calcium 9.1 mg/dL (8.4-10.2); Carbon Dioxide 26 mmol/L (22-30); Chloride 103 mmol/L (98-107); Estimated CRCL calculation 89 ml/min; Estimated Glomerular Filt Rate > 60; Glucose 89 mg/dL (65-110); Potassium 3.9 mmol/L (3.4-5.0); Sodium 137 mmol/L (137-145); Total Protein 6.7 g/dL (6.3-8.2)
--- NOTE | 2024-12-26 08:42 | P.PNGS_ITS ---
Progress Note: A&P Assessment and Plan (1) Portal vein thrombosis: Code(s): I81 - Portal vein thrombosis Status: Acute Assessment and Plan: * Continue Lovenox. No immediate surgical intervention necessary at this time. We will continue to monitor with serial abdominal exams. * Maintain current nausea regimen for today. Could consider adding alternate medication if nausea persists. (2) Paroxysmal atrial fibrillation: Code(s): I48.0 - Paroxysmal atrial fibrillation Status: Acute Assessment and Plan: Echo performed yesterday. Results appeared to be fairly normal. (3) Chronic obstructive pulmonary disease: Code(s): J44.9 - Chronic obstructive pulmonary disease, unspecified Status: Acute (4) Irritable bowel syndrome with constipation: Code(s): K58.1 - Irritable bowel syndrome with constipation Status: Acute Subjective Subjective Date/Time Seen: 12/26/24 08:42 Patient reports: no new complaints, still having pain, nausea and vomiting Interval history: No acute events overnight. Vital signs stable. Labs are insignificant. Patient is doing okay today. She reports that she is still having pain that is about the same severity as yesterday. She does express that the current pain regimen she is on is working well and she does not wish to make changes to it at this time. She notes still having nausea and vomiting yesterday. She feels like the [employer] works for a while but then wears off and she becomes nauseous. Nurse reports that she has not witnessed any episodes of emesis or seen any in the [place] m. Patient is having bowel movements. Exam GI: GI Palp: Yes Soft to palpation, Yes Tenderness to palpation present (GI) (mild tenderness to RUQ), No Guarding due to palpation present (GI) and No Hernia present Auscultation: normal bowel sounds Objective Data Vital Signs Vital Signs: Vital Signs - 24 hr 12/25/24 08:59 12/25/24 08:59 12/25/24 09:45 Temperature Pulse Rate 54 L Respiratory Rate 20 Blood Pressure Pulse Oximetry 98 Oxygen Delivery Room Air Room Air 12/25/24 12:00 12/25/24 14:00 12/25/24 16:00 Temperature 97.7 F Pulse Rate 63 74 59 L Respiratory Rate 15 Blood Pressure 111/50 L Pulse Oximetry 100 Oxygen Delivery 12/25/24 19:54 12/25/24 20:00 12/25/24 20:20 Temperature 97.3 F L Pulse Rate 62 61 74 Respiratory Rate 16 Blood Pressure 114/61 Pulse Oximetry 98 Oxygen Delivery 12/25/24 20:25 12/25/24 20:25 12/26/24 00:00 Temperature Pulse Rate 74 58 L Respiratory Rate 16 Blood Pressure Pulse Oximetry 98 98 Oxygen Delivery Room Air Room Air 12/26/24 06:00 12/26/24 06:11 12/26/24 07:48 Temperature 97.0 F L Pulse Rate 54 L 53 L Respiratory Rate 16 Blood Pressure 105/65 Pulse Oximetry 98 98 Oxygen Delivery Room Air Intake/Output Intake/Output: Intake & Output 12/23/24 12/24/24 12/25/24 12/26/24 23:59 23:59 23:59 23:59 Intake Total 1000 660 420 Balance 1000 660 420 Meds/Results Medications: Active Medications Generic Name Dose Route Start Last Admin Trade Name Freq PRN Reason Stop Dose Admin Acetaminophen 650 mg 12/24/24 19:53 Acetaminophen 325 Mg Tablet PO Q4H PRN Mild Pain (1-3) or Fever Hydrocodone Bitart/Acetaminophen 1 tab 12/25/24 04:51 12/25/24 18:27 Hydrocodone/Acetaminophen (*Crx) 5-325 Mg Tablet PO 1 tab Q4H PRN Administration pain 4-6 Albuterol 1 puff 12/25/24 04:51 Albuterol Sulfate (*Sp) Aerosol 1 Puff INHALATION Q4HRT PRN Shortness Of Breath Or Wheezing Aspirin 81 mg 12/25/24 08:00 12/25/24 09:46 Aspirin 81 Mg Chewable Tablet PO 81 mg DAILY@0800 PONCE Administration Calcium Carbonate 500 mg 12/25/24 09:00 12/25/24 09:45 Calcium Carbonate (Oscal) 500 Mg Tablet PO 500 mg QAM PONCE Administration Cyclobenzaprine HCl 10 mg 12/25/24 21:00 12/25/24 20:20 Cyclobenzaprine Hcl 10 Mg Tablet PO 10 mg HS PONCE Administration Diazepam 10 mg 12/25/24 04:51 Diazepam (*Crx) 10 Mg Tablet PO QHS PRN anxiety Diltiazem HCl 30 mg 12/25/24 09:00 12/25/24 20:20 Diltiazem Hcl 30 Mg Tablet PO 30 mg Q12HR PONCE Administration Duloxetine HCl 60 mg 12/25/24 09:00 12/25/24 09:45 Duloxetine Hcl 60 Mg Capsule.Dr PO 60 mg DAILY PONCE Administration Enoxaparin Sodium 71 mg 12/25/24 09:00 12/25/24 20:20 Enoxaparin 80 Mg/0.8 Ml Syringe SUB-Q 71 mg Q12HR PONCE Administration Escitalopram Oxalate 10 mg 12/25/24 21:00 12/25/24 20:20 Escitalopram Oxalate 10 Mg Tablet PO 10 mg HS PONCE Administration Famotidine 20 mg 12/25/24 09:00 12/25/24 20:20 Famotidine 20 Mg Tablet BY MOUTH 20 mg Q12HR PONCE Administration Ferrous Sulfate 325 mg 12/25/24 09:00 12/25/24 17:02 Ferrous Sulfate [address] PO 325 mg BID PONCE Administration Fluticasone Propionate 1 spray 12/25/24 09:00 12/25/24 09:52 Fluticasone Propionate 0.05% Na Spr 16 Gm Btl (*Bkc) NASAL 1 spray DAILY PONCE Administration Hydrocortisone 1 applic 12/25/24 09:00 12/25/24 09:47 Hydrocortisone 1% 30 Gm Cream TOPICAL 1 applic DAILY PONCE Administration Hydromorphone HCl 0.5 mg 12/24/24 19:53 12/25/24 21:27 Hydromorphone Hcl Inj (*Crx) 2 Mg/Ml Vial IV PUSH 0.5 mg Q4H PRN Administration Pain Rated 7-10 Linaclotide 72 mcg 12/25/24 06:30 12/26/24 05:53 Linaclotide 72 Mcg Capsule PO 72 mcg DAILY@0630 PONCE Administration Metoprolol Succinate 50 mg 12/25/24 21:00 12/25/24 20:20 Metoprolol Succinate Ext Rel 50 Mg Tabcr PO 50 mg HS PONCE Administration Ondansetron HCl 4 mg 12/24/24 19:53 12/25/24 13:09 Ondansetron Inj 4 Mg/2 Ml Vial IV PUSH 4 mg Q4H PRN Administration Nausea Pantoprazole Sodium 40 mg 12/25/24 09:00 12/25/24 20:20 Pantoprazole 40 Mg Tablet PO 40 mg Q12HR PONCE Administration Perflutren Lipid Microsphere 0 ml 12/25/24 04:50 Perflutren Lipid Microspheres 1.5 Ml Vial Diluted To 10 Ml Total Volume IV PUSH 12/28/24 04:50 ONCE PRN adequate visualization Protocol Fluticasone/Salmeterol 2 puff 12/25/24 08:00 12/26/24 07:48 Fluticasone/Salmeterol 115-21 Mcg Inhaler 1 Puff INHALATION 2 puff Q12HRT PONCE Administration Valacyclovir HCl 500 mg 12/25/24 09:00 12/25/24 09:46 Valacyclovir Hcl 500 Mg Tablet PO 500 mg DAILY PONCE Administration Vitamin B Complex 1 cap 12/25/24 09:00 12/25/24 09:45 Vitamin B Complex Capsule PO 1 cap DAILY PONCE Administration Radiology Results: ITS Impressions Abdomen Ultrasound 12/24/24 18:24 IMPRESSION: Normal limited abdominal ultrasound findings. Abdomen/Pelvis CT 12/24/24 19:01 IMPRESSION: Mild esophagitis/gastritis. Hepatomegaly. Nonocclusive acute appearing splenic portal vein thrombosis. Labs Labs: Laboratory Results - last 24 hr 12/26/24 07:27 WBC 7.2 RBC 4.52 Hgb 13.1 Hct 40.2 MCV 88.9 MCH 29.0 MCHC 32.6 RDW 12.1 Plt Count 281 MPV 10.5 H Immature Gran % (Auto) 0.3 Neut % (Auto) 60.6 Lymph % (Auto) 28.8 Avery % (Auto) 7.8 Eos % (Auto) 1.8 Baso % (Auto) 0.7 Lymph # (Auto) 2.07 Avery # (Auto) 0.6 Eos # (Auto) 0.1 Baso # (Auto) 0.1 Abs Immat Gran (auto) 0.02 Absolute Neuts (auto) 4.4 Absolute Nucleated RBC 0.000 Nucleated RBC % 0.0 Sodium 137 Potassium 3.9 Chloride 103 Carbon Dioxide 26 Anion Gap 8 BUN 9 Creatinine 0.75 Estim Creat Clear Calc 89 Estimated GFR > 60 Glucose 89 Calcium 9.1 Total Bilirubin 0.5 AST 12 L ALT 11 Alkaline Phosphatase 36 L Total Protein 6.7 Albumin 4.0
[2024-12-26] MEDS: FERROUS SULFATE 325 MG TABLET DR PO ×2 (08:44→17:34)
[2024-12-26] MEDS: CALCIUM CARBONATE (OSCAL) 500 MG TABLET PO (08:44)
[2024-12-26] MEDS: DULoxetine HCL 60 MG CAPSULE.DR PO (08:45)
[2024-12-26] MEDS: ASPIRIN 81 MG CHEWABLE TABLET PO (08:45)
[2024-12-26] MEDS: VITAMIN B COMPLEX CAPSULE 1 CAP PO (08:45)
[2024-12-26] MEDS: FAMOTIDINE 20 MG TABLET BY MOUTH ×2 (08:45→21:18)
[2024-12-26] MEDS: FLUTICASONE PROPIONATE 0.05% NA SPR 16 GM BTL (*BKC) 1 SPRAY NASAL (08:46)
[2024-12-26] MEDS: HYDROcodone/acetaminophen (*CRX) 5-325 MG TABLET 1 TAB PO ×4 (08:46→21:18)
[2024-12-26] MEDS: PANTOPRAZOLE 40 MG TABLET PO ×2 (08:46→21:18)
[2024-12-26] MEDS: ONDANSETRON INJ 4 MG/2 ML VIAL IV PUSH (08:46)
[2024-12-26] MEDS: HYDROCORTISONE 1% 30 GM CREAM 1 APPLIC TOPICAL (08:46)
[2024-12-26] MEDS: ENOXAPARIN 80 MG/0.8 ML SYRINGE 71 MG SUB-Q ×2 (08:47→21:19)
[2024-12-26] MEDS: CYCLOBENZAPRINE HCL 10 MG TABLET PO (21:18)
[2024-12-26] MEDS: ESCITALOPRAM OXALATE 10 MG TABLET PO (21:18)
[2024-12-26] MEDS: METOPROLOL SUCCINATE EXT REL 50 MG TABCR PO (21:18)
[2024-12-26] MEDS: HYDROmorphone HCL INJ (*CRX) 2 MG/ML VIAL 0.5 MG IV PUSH (23:21)
[2024-12-27] VITALS: PULSE 58
[2024-12-27 04:00] VITALS: PULSE 54
[2024-12-27] MEDS: HYDROcodone/acetaminophen (*CRX) 5-325 MG TABLET 1 TAB PO ×2 (04:40→11:02)
[2024-12-27 05:32] LABS: Hematocrit 42.8 % (37.0-47.0); Hemoglobin 13.7 g/dL (12.0-15.0); Immature Granulocyte Percent A 0.3 % (0-0.5); Lymphocytes Absolute Auto 2.13 K/mm3 (0.9-3.2); Mean Corpuscular HGB Conc 32.0 g/dl (32-36); Mean Corpuscular Hemoglobin 28.5 pg (26-34); Mean Corpuscular Volume 89.2 fl (80-100); Nucleated Red Blood Cells Absolute Auto 0.000 K/mm3 (0.0-0.012); Nucleated Red Blood Cells Perc 0.0 % (0.0-0.2); Platelet Count Result 305 k/mm3 (150-375); Red Blood Count 4.80 M/mm3 (4.2-5.4); White Blood Count 8.7 K/mm3 (4.5-10.0)
[2024-12-27 05:43] LABS: Alanine Aminotransferase 15 U/L (6-35); Albumin Level 4.3 g/dL (3.5-5.1); Alkaline Phosphatase 39 U/L (38-126); Anion Gap 8 mmol/L (4-12); Aspartate Amino Transferase 15 U/L (14-36); Bilirubin,Total 0.5 mg/dL (0.2-1.3); Blood Urea Nitrogen 10 mg/dL (7-17); Calcium 9.3 mg/dL (8.4-10.2); Carbon Dioxide 28 mmol/L (22-30); Chloride 101 mmol/L (98-107); Estimated CRCL calculation 78 ml/min; Estimated Glomerular Filt Rate > 60; Glucose 82 mg/dL (65-110); Potassium 4.6 mmol/L (3.4-5.0); Sodium 137 mmol/L (137-145); Total Protein 7.2 g/dL (6.3-8.2)
[2024-12-27 06:00] VITALS: BP 106/69; PULSE 60; RESP 18; TEMP 36.5; O2SAT 98
[2024-12-27] MEDS: LINACLOTIDE 72 MCG CAPSULE PO (06:01)
--- NOTE | 2024-12-27 06:33 | P.PNIM_ITS ---
Progress Note: A&P Assessment and Plan (1) Portal vein thrombosis: Code(s): I81 - Portal vein thrombosis Status: Acute Assessment and Plan: * x4 month history of n/v and abdominal pain, worse in the past week * CT abd/pelvis: Mild esophagitis/gastritis. Hepatomegaly. Nonocclusive acute appearing splenic portal vein thrombosis. * No history of blood clots, but + history A fib * LFTs wnl * Abd US unremarkable * Gen surgery, appreciate recommendations * Continue Lovenox * Conservative non-surgical management * Monitor serial abdominal exams * 12/26: Stable, continue monitor abd exam * Repeat CT abd/pelvis tomorrow (2) Acute thrombosis of splenic vein: Code(s): I82.890 - Acute embolism and thrombosis of other specified veins Status: Acute Assessment and Plan: * See above (3) Esophagitis with gastritis: Code(s): K29.70 - Gastritis, unspecified, without bleeding; K20.90 - Esophagitis, unspecified without bleeding Status: Acute Assessment and Plan: * Abdominal/Pelvis CT: Mild esophagitis/gastritis. Hepatomegaly. Nonocclusive acute appearing splenic portal vein thrombosis. * Famotidine 20mg q12 PO (4) Hepatomegaly: Code(s): R16.0 - Hepatomegaly, not elsewhere classified Status: Acute Assessment and Plan: * Abdominal/Pelvis CT: Hepatomegaly * RUQ US: Unremarkable * LFTs wnl * Currently being worked up for this issue at [facility] in [place] * Also seeing Addictions Counselor/oncologist * Will encourage to continue outpt follow up evaluations (5) Paroxysmal atrial fibrillation: Code(s): I48.0 - Paroxysmal atrial fibrillation Status: Acute Assessment and Plan: * Keep serum potassium >4 and keep magnesium >2 * Chronic, stable * lovenox initated * Echocardiogram ordered (6) Gastroesophageal reflux disease: Code(s): K21.9 - Gastro-esophageal reflux disease without esophagitis Status: Acute Assessment and Plan: * Continue Omeprazole * Pepcid 20mg q12hr PO (7) Chronic obstructive pulmonary disease: Code(s): J44.9 - Chronic obstructive pulmonary disease, unspecified Status: Acute Assessment and Plan: * Monitor vital signs, I&Os, neuro status and patient is a fall risk * Monitor serum electrolytes, cultures and CBC * Monitor Oxygen saturation, Oxygen via NC; wean oxygen as tolerated, keep SpO2 greater than 88% * Stable, no SOB, physical exam findings Subjective Date/time seen: 12/27/24 06:33 Interval history: 34-year-old female with history of IBS with constipation, GERD, peptic ulcer, kidney stones, hepatomegaly currently being worked up, SZLE, pericarditis, pericarditis, afib, COPD, hypothyroidism, anemia, depression, anxiety, and bipolar disorder who presents to ED with complaints of abdominal pain. 12/27/2024 Patient sitting comfortably in bed at time of exam. Denies any chest pain, sob, n/v at this time. Gen surg continuing to follow. Nausea still difficult to control, but Zofran does help. Pain improved since yesterday. Review of Systems Review of Systems: 12 systems were reviewed and are negativ e except for as per HPI. Exam Narrative: General: Nontoxic-appearing female in the semi-Leong position in bed in no distress. Weight: 72.6 kg. BMI: 25.1. HEENT: PERRL, EOMI. Sclera anicteric. Oral mucosa moist. Neck: Supple. Respiratory: Lungs are clear to auscultation bilaterally. Cardiovascular: Regular rate and rhythm with S1-S2. Gastrointestinal: Abdomen is soft and nondistended with positive bowel sounds. She is quite tender to palpation throughout the periumbilical region, more so in the right lower quadrant. Mild guarding but no rebound tenderness. Does endorse improvement in abdominal pain at rest but upon palpation does still illicit some tenderness. Skin: Warm and dry. No jaundice. Extremities: No cyanosis, clubbing, or edema. Radial and pedal pulses intact. Negative Maximiliano sign bilaterally. Neurological: Alert. Cranial nerves 2-12 are grossly intact. No gross focal deficits to casual conversation. Psychiatric: Pleasant and cooperative with normal mood and affect. Judgment and insight intact. Objective Data Vital Signs Vital Signs: Vital Signs - 24 hr 12/26/24 07:48 12/26/24 08:00 12/26/24 08:45 Temperature Pulse Rate 58 L Respiratory Rate Blood Pressure Pulse Oximetry 98 Oxygen Delivery Room Air Room Air 12/26/24 12:00 12/26/24 13:52 12/26/24 16:00 Temperature 98.1 F Pulse Rate 57 L 58 L 56 L Respiratory Rate 14 Blood Pressure 106/55 L Pulse Oximetry 98 Oxygen Delivery 12/26/24 20:00 12/26/24 20:18 12/26/24 21:18 Temperature Pulse Rate 70 62 Respiratory Rate Blood Pressure Pulse Oximetry 92 Oxygen Delivery Room Air 12/26/24 21:20 12/26/24 22:00 12/27/24 00:00 Temperature 97.9 F Pulse Rate 60 60 58 L Respiratory Rate 18 18 Blood Pressure 109/61 Pulse Oximetry 98 98 Oxygen Delivery Room Air 12/27/24 04:00 12/27/24 06:00 Temperature 97.7 F Pulse Rate 54 L 60 Respiratory Rate 18 Blood Pressure 106/69 Pulse Oximetry 98 Oxygen Delivery Intake/Output Intake/Output: Intake & Output 12/24/24 12/25/24 12/26/24 12/27/24 23:59 23:59 23:59 23:59 Intake Total 7922 560 8191 Balance 9625 652 2468 Meds/Results Medications: Active Medications Generic Name Dose Route Start Last Admin Trade Name Freq PRN Reason Stop Dose Admin Acetaminophen 650 mg 12/24/24 19:53 Acetaminophen 325 Mg Tablet PO Q4H PRN Mild Pain (1-3) or Fever Hydrocodone Bitart/Acetaminophen 1 tab 12/25/24 04:51 12/27/24 04:40 Hydrocodone/Acetaminophen (*Crx) 5-325 Mg Tablet PO 1 tab Q4H PRN Administration pain 4-6 Albuterol 1 puff 12/25/24 04:51 Albuterol Sulfate (*Sp) Aerosol 1 Puff INHALATION Q4HRT PRN Shortness Of Breath Or Wheezing Aspirin 81 mg 12/25/24 08:00 12/26/24 08:45 Aspirin 81 Mg Chewable Tablet PO 81 mg DAILY@0800 [facility] Administration Calcium Carbonate 500 mg 12/25/24 09:00 12/26/24 08:44 Calcium Carbonate (Oscal) 500 Mg Tablet PO 500 mg QAM PONCE Administration Cyclobenzaprine HCl 10 mg 12/25/24 21:00 12/26/24 21:18 Cyclobenzaprine Hcl 10 Mg Tablet PO 10 mg HS PONCE Administration Diazepam 10 mg 12/25/24 04:51 Diazepam (*Crx) 10 Mg Tablet PO QHS PRN anxiety Diltiazem HCl 30 mg 12/25/24 09:00 12/26/24 21:18 Diltiazem Hcl 30 Mg Tablet PO 30 mg Q12HR PONCE Administration Duloxetine HCl 60 mg 12/25/24 09:00 12/26/24 08:45 Duloxetine Hcl 60 Mg Capsule.Dr PO 60 mg DAILY PONCE Administration Enoxaparin Sodium 71 mg 12/25/24 09:00 12/26/24 21:19 Enoxaparin 80 Mg/0.8 Ml Syringe SUB-Q 71 mg Q12HR PONCE Administration Escitalopram Oxalate 10 mg 12/25/24 21:00 12/26/24 21:18 Escitalopram Oxalate 10 Mg Tablet PO 10 mg HS PONCE Administration Famotidine 20 mg 12/25/24 09:00 12/26/24 21:18 Famotidine 20 Mg Tablet BY MOUTH 20 mg Q12HR PONCE Administration Ferrous Sulfate 325 mg 12/25/24 09:00 12/26/24 17:34 Ferrous Sulfate [address] PO 325 mg BID PONCE Administration Fluticasone Propionate 1 spray 12/25/24 09:00 12/26/24 08:46 Fluticasone Propionate 0.05% Na Spr 16 Gm Btl (*Bkc) NASAL 1 spray DAILY PONCE Administration Hydrocortisone 1 applic 12/25/24 09:00 12/26/24 08:46 Hydrocortisone 1% 30 Gm Cream TOPICAL 1 applic DAILY PONCE Administration Hydromorphone HCl 0.5 mg 12/24/24 19:53 12/26/24 23:21 Hydromorphone Hcl Inj (*Crx) 2 Mg/Ml Vial IV PUSH 0.5 mg Q4H PRN Administration Pain Rated 7-10 Linaclotide 72 mcg 12/25/24 06:30 12/27/24 06:01 Linaclotide 72 Mcg Capsule PO 72 mcg DAILY@0630 PONCE Administration Metoprolol Succinate 50 mg 12/25/24 21:00 12/26/24 21:18 Metoprolol Succinate Ext Rel 50 Mg Tabcr PO 50 mg HS PONCE Administration Ondansetron HCl 4 mg 12/24/24 19:53 12/26/24 08:46 Ondansetron Inj 4 Mg/2 Ml Vial IV PUSH 4 mg Q4H PRN Administration Nausea Pantoprazole Sodium 40 mg 12/25/24 09:00 12/26/24 21:18 Pantoprazole 40 Mg Tablet PO 40 mg Q12HR PONCE Administration Perflutren Lipid Microsphere 0 ml 12/25/24 04:50 Perflutren Lipid Microspheres 1.5 Ml Vial Diluted To 10 Ml Total Volume IV PUSH 12/28/24 04:50 ONCE PRN adequate visualization Protocol Fluticasone/Salmeterol 2 puff 12/25/24 08:00 12/26/24 20:18 Fluticasone/Salmeterol 115-21 Mcg Inhaler 1 Puff INHALATION 2 puff Q12HRT PONCE Administration Valacyclovir HCl 500 mg 12/25/24 09:00 12/26/24 08:45 Valacyclovir Hcl 500 Mg Tablet PO 500 mg DAILY PONCE Administration Vitamin B Complex 1 cap 12/25/24 09:00 12/26/24 08:45 Vitamin B Complex Capsule PO 1 cap DAILY PONCE Administration Radiology Results: ITS Impressions Abdomen Ultrasound 12/24/24 18:24 IMPRESSION: Normal limited abdominal ultrasound findings. Abdomen/Pelvis CT 12/24/24 19:01 IMPRESSION: Mild esophagitis/gastritis. Hepatomegaly. Nonocclusive acute appearing splenic portal vein thrombosis. Labs Labs: Laboratory Results - last 24 hr 12/26/24 12/27/24 07:27 04:40 WBC 7.2 8.7 RBC 4.52 4.80 Hgb 13.1 13.7 Hct 40.2 42.8 MCV 88.9 89.2 MCH 29.0 28.5 MCHC 32.6 32.0 RDW 12.1 12.1 Plt Count 281 305 MPV 10.5 H 10.7 H Immature Gran % (Auto) 0.3 0.3 Neut % (Auto) 60.6 65.4 Lymph % (Auto) 28.8 24.6 [place] % (Auto) 7.8 7.9 Eos % (Auto) 1.8 1.2 Baso % (Auto) 0.7 0.6 Lymph # (Auto) 2.07 2.13 [place] # (Auto) 0.6 0.7 H Eos # (Auto) 0.1 0.1 Baso # (Auto) 0.1 0.1 Abs Immat Gran (auto) 0.02 0.03 Absolute Neuts (auto) 4.4 5.7 Absolute Nucleated RBC 0.000 0.000 Nucleated RBC % 0.0 0.0 Sodium 137 137 Potassium 3.9 4.6 Chloride 103 101 Carbon Dioxide 26 28 Anion Gap 8 8 BUN 9 10 Creatinine 0.75 0.87 Estim Creat Clear Calc 89 78 Estimated GFR > 60 > 60 Glucose 89 82 Calcium 9.1 9.3 Total Bilirubin 0.5 0.5 AST 12 L 15 ALT 11 15 Alkaline Phosphatase 36 L 39 Total Protein 6.7 7.2 Albumin 4.0 4.3 Quality VTE Prophylaxis VTE prophylaxis: pharmacologic ordered (currently on LMWH)
[2024-12-27 08:00] VITALS: PULSE 55
[2024-12-27] MEDS: FLUTICASONE/SALMETEROL 115-21 MCG INHALER 1 PUFF 2 PUFF INHALATION (08:43)
[2024-12-27] MEDS: FAMOTIDINE 20 MG TABLET BY MOUTH (08:45)
[2024-12-27] MEDS: CALCIUM CARBONATE (OSCAL) 500 MG TABLET PO (08:45)
[2024-12-27] MEDS: ASPIRIN 81 MG CHEWABLE TABLET PO (08:46)
[2024-12-27] MEDS: PANTOPRAZOLE 40 MG TABLET PO (08:46)
[2024-12-27] MEDS: FERROUS SULFATE 325 MG TABLET DR PO (08:46)
[2024-12-27] MEDS: VITAMIN B COMPLEX CAPSULE 1 CAP PO (08:46)
[2024-12-27] MEDS: ENOXAPARIN 80 MG/0.8 ML SYRINGE 71 MG SUB-Q (08:46)
[2024-12-27] MEDS: DULoxetine HCL 60 MG CAPSULE.DR PO (08:46)
[2024-12-27] MEDS: HYDROCORTISONE 1% 30 GM CREAM 1 APPLIC TOPICAL (08:47)
[2024-12-27] MEDS: FLUTICASONE PROPIONATE 0.05% NA SPR 16 GM BTL (*BKC) 1 SPRAY NASAL (08:47)
--- NOTE | 2024-12-27 08:50 | PM.PNGS ---
Progress Note: A&P Assessment and Plan (1) Portal vein thrombosis: Code(s): I81 - Portal vein thrombosis Status: Acute Assessment and Plan: exam largely benign, no acute surgical issues, cont anticoagulation, will need f/u c hematology and vascular surgery as outpt, will s/o, call c ?s, issues Subjective Subjective Date/Time Seen: 12/27/24 08:50 Interval history: still c some LUQ abd pain, improved, meredith diet Review of Systems Review of Systems: All systems reviewed & are unremarkable except as noted in HPI and below Exam Const: General: cooperative, comfortable and no acute distress Resp: Auscultation: clear to auscultation bilaterally Cardio: Rate: regular rate Rhythm: regular rhythm GI: Inspection: normal to inspection and non-distended GI Palp: Yes abdominal tenderness, Yes Soft to palpation, No Guarding due to palpation present (GI) and No Rigid due to palpation Objective Data Vital Signs Vital Signs: Vital Signs - 24 hr 12/26/24 12:00 12/26/24 13:52 12/26/24 16:00 Temperature 36.7 C Pulse Rate 57 L 58 L 56 L Respiratory Rate 14 Blood Pressure 106/55 L Pulse Oximetry 98 Oxygen Delivery 12/26/24 20:00 12/26/24 20:18 12/26/24 21:18 Temperature Pulse Rate 70 62 Respiratory Rate Blood Pressure Pulse Oximetry 92 Oxygen Delivery Room Air 12/26/24 21:20 12/26/24 22:00 12/27/24 00:00 Temperature 36.6 C Pulse Rate 60 60 58 L Respiratory Rate 18 18 Blood Pressure 109/61 Pulse Oximetry 98 98 Oxygen Delivery Room Air 12/27/24 04:00 12/27/24 06:00 Temperature 36.5 C Pulse Rate 54 L 60 Respiratory Rate 18 Blood Pressure 106/69 Pulse Oximetry 98 Oxygen Delivery Intake/Output Intake/Output: Intake & Output 12/24/24 12/25/24 12/26/24 12/27/24 23:59 23:59 23:59 23:59 Intake Total 3655 114 7487 Balance 7239 097 9928 Meds/Results Medications: Active Medications Generic Name Dose Route Start Last Admin Trade Name Freq PRN Reason Stop Dose Admin Acetaminophen 650 mg 12/24/24 19:53 Acetaminophen 325 Mg Tablet PO Q4H PRN Mild Pain (1-3) or Fever Hydrocodone Bitart/Acetaminophen 1 tab 07/01/25 04:51 12/27/24 04:40 Hydrocodone/Acetaminophen (*Crx) 5-325 Mg Tablet PO 1 tab Q4H PRN Administration pain 4-6 Albuterol 1 puff 12/25/24 04:51 Albuterol Sulfate (*Sp) Aerosol 1 Puff INHALATION Q4HRT PRN Shortness Of Breath Or Wheezing Aspirin 81 mg 12/25/24 08:00 12/26/24 08:45 Aspirin 81 Mg Chewable Tablet PO 81 mg DAILY@0800 PONCE Administration Calcium Carbonate 500 mg 12/25/24 09:00 12/26/24 08:44 Calcium Carbonate (Oscal) 500 Mg Tablet PO 500 mg QAM PONCE Administration Cyclobenzaprine HCl 10 mg 12/25/24 21:00 12/26/24 21:18 Cyclobenzaprine Hcl 10 Mg Tablet PO 10 mg HS PONCE Administration Diazepam 10 mg 12/25/24 04:51 Diazepam (*Crx) 10 Mg Tablet PO QHS PRN anxiety Diltiazem HCl 30 mg 12/25/24 09:00 12/26/24 21:18 Diltiazem Hcl 30 Mg Tablet PO 30 mg Q12HR PONCE Administration Duloxetine HCl 60 mg 12/25/24 09:00 12/26/24 08:45 Duloxetine Hcl 60 Mg Capsule.Dr PO 60 mg DAILY PONCE Administration Enoxaparin Sodium 71 mg 12/25/24 09:00 12/26/24 21:19 Enoxaparin 80 Mg/0.8 Ml Syringe SUB-Q 71 mg Q12HR PONCE Administration Escitalopram Oxalate 10 mg 12/25/24 21:00 12/26/24 21:18 Escitalopram Oxalate 10 Mg Tablet PO 10 mg HS PONCE Administration Famotidine 20 mg 12/25/24 09:00 12/26/24 21:18 Famotidine 20 Mg Tablet BY MOUTH 20 mg Q12HR PONCE Administration Ferrous Sulfate 325 mg 12/25/24 09:00 12/26/24 17:34 Ferrous Sulfate [address] PO 325 mg BID PONCE Administration Fluticasone Propionate 1 spray 12/25/24 09:00 12/26/24 08:46 Fluticasone Propionate 0.05% Na Spr 16 Gm Btl (*Bkc) NASAL 1 spray DAILY PONCE Administration Hydrocortisone 1 applic 12/25/24 09:00 12/26/24 08:46 Hydrocortisone 1% 30 Gm Cream TOPICAL 1 applic DAILY PONCE Administration Hydromorphone HCl 0.5 mg 12/24/24 19:53 12/26/24 23:21 Hydromorphone Hcl Inj (*Crx) 2 Mg/Ml Vial IV PUSH 0.5 mg Q4H PRN Administration Pain Rated 7-10 Linaclotide 72 mcg 12/25/24 06:30 12/27/24 06:01 Linaclotide 72 Mcg Capsule PO 72 mcg DAILY@0630 PONCE Administration Metoprolol Succinate 50 mg 12/25/24 21:00 12/26/24 21:18 Metoprolol Succinate Ext Rel 50 Mg Tabcr PO 50 mg HS PONCE Administration Ondansetron HCl 4 mg 12/24/24 19:53 12/26/24 08:46 Ondansetron Inj 4 Mg/2 Ml Vial IV PUSH 4 mg Q4H PRN Administration Nausea Pantoprazole Sodium 40 mg 12/25/24 09:00 12/26/24 21:18 Pantoprazole 40 Mg Tablet PO 40 mg Q12HR PONCE Administration Perflutren Lipid Microsphere 0 ml 12/25/24 04:50 Perflutren Lipid Microspheres 1.5 Ml Vial Diluted To 10 Ml Total Volume IV PUSH 12/28/24 04:50 ONCE PRN adequate visualization Protocol Fluticasone/Salmeterol 2 puff 12/25/24 08:00 12/27/24 08:43 Fluticasone/Salmeterol 115-21 Mcg Inhaler 1 Puff INHALATION 2 puff Q12HRT PONCE Administration Valacyclovir HCl 500 mg 12/25/24 09:00 12/26/24 08:45 Valacyclovir Hcl 500 Mg Tablet PO 500 mg DAILY PONCE Administration Vitamin B Complex 1 cap 12/25/24 09:00 12/26/24 08:45 Vitamin B Complex Capsule PO 1 cap DAILY PONCE Administration Radiology Results: ITS Impressions Abdomen Ultrasound 12/24/24 18:24 IMPRESSION: Normal limited abdominal ultrasound findings. Abdomen/Pelvis CT 12/24/24 19:01 IMPRESSION: Mild esophagitis/gastritis. Hepatomegaly. Nonocclusive acute appearing splenic portal vein thrombosis. Labs Labs: Laboratory Results - last 24 hr 12/27/24 04:40 WBC 8.7 RBC 4.80 Hgb 13.7 Hct 42.8 MCV 89.2 MCH 28.5 MCHC 32.0 RDW 12.1 Plt Count 305 MPV 10.7 H Immature Gran % (Auto) 0.3 Neut % (Auto) 65.4 Lymph % (Auto) 24.6 [place] % (Auto) 7.9 Eos % (Auto) 1.2 Baso % (Auto) 0.6 Lymph # (Auto) 2.13 [place] # (Auto) 0.7 H Eos # (Auto) 0.1 Baso # (Auto) 0.1 Abs Immat Gran (auto) 0.03 Absolute Neuts (auto) 5.7 Absolute Nucleated RBC 0.000 Nucleated RBC % 0.0 Sodium 137 Potassium 4.6 Chloride 101 Carbon Dioxide 28 Anion Gap 8 BUN 10 Creatinine 0.87 Estim Creat Clear Calc 78 Estimated GFR > 60 Glucose 82 Calcium 9.3 Total Bilirubin 0.5 AST 15 ALT 15 Alkaline Phosphatase 39 Total Protein 7.2 Albumin 4.3
[2024-12-27] MEDS: ONDANSETRON INJ 4 MG/2 ML VIAL IV PUSH (08:53)
[2024-12-27 12:00] VITALS: PULSE 62
--- NOTE | 2024-12-27 12:18 | P.DS_ITS ---
DS: Admitting Diagnosis Discharge Date 12/27/2024 Admitting Diagnosis Portal vein thrombosis DS: Discharge Diagnosis Discharge Diagnosis (1) Portal vein thrombosis: Code(s): I81 - Portal vein thrombosis Status: Acute (2) Acute thrombosis of splenic vein: Code(s): I82.890 - Acute embolism and thrombosis of other specified veins Status: Acute (3) Esophagitis with gastritis: Code(s): K29.70 - Gastritis, unspecified, without bleeding; K20.90 - Esophagitis, unspecified without bleeding Status: Acute (4) Hepatomegaly: Code(s): R16.0 - Hepatomegaly, not elsewhere classified Status: Acute (5) Paroxysmal atrial fibrillation: Code(s): I48.0 - Paroxysmal atrial fibrillation Status: Acute (6) Gastroesophageal reflux disease: Code(s): K21.9 - Gastro-esophageal reflux disease without esophagitis Status: Acute (7) Chronic obstructive pulmonary disease: Code(s): J44.9 - Chronic obstructive pulmonary disease, unspecified Status: Acute DS: Summary Hospital Course Reason for hospitalization: Abdominal pain Hospital Course: This is a 34-year-old female with history of irritable bowel syndrome with constipation, gastroesophageal reflux disease, peptic ulcer, kidney stones, hepatomegaly currently being worked up, systemic lupus erythematosus, pericarditis, pericarditis, atrial fibrillation, chronic obstructive pulmonary disease, hypothyroidism, anemia, depression, anxiety, and bipolar disorder who presented to the emergency department via private vehicle with complaints of abdominal pain. She gives a 4 month history of generalized abdominal comfort, mainly with eating. She describes early satiety and occasional pressure-like discomfort throughout the upper abdomen. Her symptoms have been much worse over the past 5 days and it seems to be situated more so over the right upper quadrant. She actually arrived to the ED complaining of ?liver pain? radiating around her ribs and through to the back. She is also had some nausea and a couple of episodes of nonbloody and nonbilious emesis. She denies fever, chills, sweats, hematemesis, jaundice, pruritus, rash, melena, hematochezia, steatorrhea and acholic stools. Her GERD symptoms are not any worse than normal. She typically has constipation and reports having an otherwise unremarkable bowel movement couple of days ago. She denies NSAID and alcohol use. In the ED: Vital signs were stable on arrival. CMP and CBC were pretty unremarkable aside from a WBC count of 11.3. Urine drug screen was positive for cannabinoids. CT of the abdomen and pelvis showed evidence of mild esophagitis/gastritis, hepatomegaly, and nonocclusive acute appearing splenic portal vein thrombosis. She received therapeutic enoxaparin and is being admitted in this setting for further treatment and evaluation. General surgery consulted regarding portal vein thrombosis. Recommend continuing Lovenox throughout hospitalization but that no surgical intervention is warranted at this time. Echocardiogram was obtained for paroxysmal afib, EF of 60-65% with trace MVR, otherwise unremarkable. Throughout hospitalization, abdominal exams were performed and continued to improved, along with nausea. On 12/27, general surgery cleared patient for discharge. Recommended following up with Hematology and vascular surgery in the outpatient setting. There also re commend continuing anticoagulation. Will place on Eliquis 5mg and instructed to follow-up with her PCP in the outpatient setting. Patient is otherwise hemodynamically stable, can tolerate foods and liquids, and has improving physical exam. Blood work is stable and vitals remained stable as well. Patient is amenable for discharge home as well. Status at Discharge Functional status at discharge: independent ambulation Overall status at discharge: patient is back to baseline Time Spent with Patient Time attestation: Total time spent providing and/or coordinating discharge services: 51 Exam Narrative: General: Nontoxic-appearing female in the semi-Leong position in bed in no distress. Weight: 72.6 kg. BMI: 25.1. HEENT: PERRL, EOMI. Sclera anicteric. Oral mucosa moist. Neck: Supple. Respiratory: Lungs are clear to auscultation bilaterally. Cardiovascular: Regular rate and rhythm with S1-S2. Gastrointestinal: Abdomen is soft and nondistended with positive bowel sounds. She is quite tender to palpation throughout the periumbilical region, more so in the right lower quadrant. Mild guarding but no rebound tenderness. Does endorse improvement in abdominal pain at rest but upon palpation does still illicit some tenderness. Skin: Warm and dry. No jaundice. Extremities: No cyanosis, clubbing, or edema. Radial and pedal pulses intact. Negative Maximiliano sign bilaterally. Neurological: Alert. Cranial nerves 2-12 are grossly intact. No gross focal deficits to casual conversation. Psychiatric: Pleasant and cooperative with normal mood and affect. Judgment and insight intact. DS: Data Data Completed and Pending Labs on day of discharge: Labs from last 24 hours 12/27/24 04:40 WBC 8.7 RBC 4.80 Hgb 13.7 Hct 42.8 MCV 89.2 MCH 28.5 MCHC 32.0 RDW 12.1 Plt Count 305 MPV 10.7 H Immature Gran % (Auto) 0.3 Neut % (Auto) 65.4 Lymph % (Auto) 24.6 Clarion % (Auto) 7.9 Eos % (Auto) 1.2 Baso % (Auto) 0.6 Lymph # (Auto) 2.13 Clarion # (Auto) 0.7 H Eos # (Auto) 0.1 Baso # (Auto) 0.1 Abs Immat Gran (auto) 0.03 Absolute Neuts (auto) 5.7 Absolute Nucleated RBC 0.000 Nucleated RBC % 0.0 Sodium 137 Potassium 4.6 Chloride 101 Carbon Dioxide 28 Anion Gap 8 BUN 10 Creatinine 0.87 Estim Creat Clear Calc 78 Estimated GFR > 60 Glucose 82 Calcium 9.3 Total Bilirubin 0.5 AST 15 ALT 15 Alkaline Phosphatase 39 Total Protein 7.2 Albumin 4.3 Discharge Plan Discharge Attending physician on discharge: Sharonda Valencia Consulting providers: Alexa Hawk; Jersey Martinez Discharging Clinician: Jersey Martinez Anticipated Discharge Date/Time: 12/27/24 12:12 Patient Disposition: Home Activity: as tolerated Diet: as tolerated Discharge Instructions: Discharge disposition: Stable Take medications as prescribed Monitor blood pressures Take caution while standing, rising, or moving Change positions slowly taking a break between each position change If you standing feel dizzy sit back down and take a break Encouraged to continue with yearly vaccinations Return to the emergency department if he developed sudden shortness of breath, chest pain, nausea, vomiting, upset stomach or intractable diarrhea Return to the emergency department if you develop fever greater than 101.5 Follow-up with the primary care physician within 1-[address] up with [address]. Davey with Hematology/Oncology and obtain a referral for Vascular Surgery from you PCP regarding your Hepatomegaly and Portal Vein Thrombosis, respectively. This can be worked up in the outpatient setting. Call them as soon as you can to schedule an appointment. Thank you for [facility] for your healthcare needs Patient Instructions: Antibiotic Form Patient Language: Welsh Stand Alone Forms: General Discharge Information Follow-up/Referrals: Royal Davey MD [Physician] - Mervin Kevin MD [Primary Care Provider] - Discharge Medications: New Eliquis 5 mg tablet 5 mg PO BID 30 Days Qty: 60 0RF ondansetron HCl 4 mg tablet 4 mg PO Q8H PRN (Reason: nausea and vomiting) 7 Days Qty: 21 0RF Continued metoprolol succinate 50 mg tablet extended release 24 hr 50 mg PO HS albuterol sulfate 90 mcg/actuation HFA aerosol inhaler 1 puff inhalation Q4-6H PRN (Reason: Shortness Of Breath Or Wheezing) fluticasone propionate [Flonase Allergy Relief] 50 mcg/actuation spray,suspension 1 spray intranasal DAILY Rx Instructions: administer into each nostril (DME) 2Tek Glucose/Blood Pressure Kit See Rx Instructions .Route Rx Instructions: As directed aspirin 81 mg tablet,chewable 81 mg PO DAILY Linzess 72 mcg capsule 72 mcg PO DAILY 30 Days Qty: 30 5RF famotidine 20 mg tablet See Rx Instructions .ROUTE .COMPLEX Qty: 60 0RF Dose Instruction: TAKE 1 TABLET BY MOUTH TWICE A DAY Rx Instructions: TAKE 1 TABLET BY MOUTH TWICE A DAY ferrous sulfate 325 mg (65 mg iron) tablet 325 mg PO BID cyclobenzaprine 10 mg tablet 10 mg PO HS diazepam 10 mg tablet 10 mg PO QHS PRN (Reason: anxiety) sumatriptan succinate 25 mg tablet 25 mg PO .COMPLEX Rx Instructions: 25 mg orally; BIWEEKLY PRN FOR MIGRAINES calcium carbonate [Calcium 600] 600 mg calcium (1,500 mg) tablet 600 mg PO DAILY duloxetine 60 mg Capsule,Delayed Release(Dr/Ec) 60 mg PO DAILY ergocalciferol (vitamin D2) 1,250 mcg (50,000 unit) capsule 50,000 mcg PO WEEKLY Patient Comments: PT TAKES ON TUESDAY acetaminophen 500 mg tablet 500 mg PO Q6H PRN (Reason: pain) Qty: 30 0RF diltiazem HCl 30 mg tablet 30 mg PO BID escitalopram oxalate 10 mg tablet 10 mg PO HS fluticasone propion-salmeterol 250-50 mcg/dose blister with device 1 inh INHALATION Q12H hydrocodone-acetaminophen 5-325 mg tablet 1 tablet PO Q4H PRN (Reason: pain) hydrocortisone 2.5 % cream with perineal applicator 1 applic topical DAILY Rx Instructions: APPLY TO HEAT RASH ON NECK ondansetron 4 mg tablet,disintegrating 4 mg translingual Q8H PRN (Reason: nausea and vomiting) omeprazole 40 mg capsule,delayed release(DR/EC) See Rx Instructions .ROUTE .COMPLEX Qty: 90 3RF Dose Instruction: TAKE 1 CAPSULE BY MOUTH EVERY DAY Rx Instructions: TAKE 1 CAPSULE BY MOUTH EVERY DAY valacyclovir [Valtrex] 500 mg tablet 500 mg PO DAILY Qty: 60 6RF Discontinued vitamin B complex [B Complex-Vitamin B12] Tablet 1 tablet PO DAILY ibuprofen 600 mg tablet 600 mg PO Q6H PRN (Reason: pain) Qty: 30 0RF ketorolac 10 mg tablet 10 mg PO Q6H PRN (Reason: pain) Patient Comments: PRESCRIPTION WAS CONTINUED FOR PRN PAIN Date of admission: 12/24/24 19:54 Primary Care Provider: Mervin Kevin Admitting Provider: Waylon Sierra Attending physician on admission: Waylon Sierra Condition: Stable Quality VTE Prophylaxis VTE prophylaxis: pharmacologic ordered (currently on LMWH)
== END 2024-12-27 16:30 | disposition home or self-care (01) | DRG 279 ==
LOC: ANHED 16:27 → ANH2MED 20:26
PROVIDERS: Physician Assistant; Registered Nurse; Admitting Provider Internal Medicine; Emergency Provider Student in an Organized Health Care Education/Training Program; PCP Emergency Medicine; Visit Provider Physician Assistant
DX: I81 Portal vein thrombosis (principal); I82.890 Acute embolism and thrombosis of other specified veins; I48.0 Paroxysmal atrial fibrillation; K29.70 Gastritis, unspecified, without bleeding; K20.90 Esophagitis, unspecified without bleeding; R16.0 Hepatomegaly, not elsewhere classified; K21.9 Gastro-esophageal reflux disease without esophagitis; J44.9 Chronic obstructive pulmonary disease, unspecified; M32.9 Systemic lupus erythematosus, unspecified; E03.9 Hypothyroidism, unspecified; D64.9 Anemia, unspecified; F31.9 Bipolar disorder, unspecified; F41.8 Other specified anxiety disorders; K58.1 Irritable bowel syndrome with constipation; Z87.891 Personal history of nicotine dependence
CPT/HCPCS: 36415; 74177; 76705; 80053; 80307; 81003; 81025; 83690; 83735; 85025; 85027; 93306; 94640; 96361; 96374; 96375; 96376; 99285; A9270; J1171; J1650; J2405; J7120; Q9967

== ENCOUNTER 2025-01-17 09:16 | Outpatient (CLI) | payer MEDICAID, SELFPAY ==
--- OUTSIDE RECORDS SUMMARY | 2025-01-17 09:22 | XMS_ITS | Clinical Summary ---
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
--- OUTSIDE RECORDS SUMMARY | 2025-01-17 09:22 | XMS_ITS | Encounter Summary ---
Author Organization [facility] Address [address] [facility] [place] [address] Phone Care Team Providers Care Application Engineer Name Role Phone Mervin Kevin MD Primary Care Provider [phone] Encounter Details Date Type Department Care Team (Late Contact Info) Description 12/31/2024 Results Follow-Up [facility] Oncologists [address] [place] [phone] Cinthia Noriega, COVER STRIPPER, HUMAN CAPITAL CONSULTANT [address] [place] [address] MRI ABDOMEN W CONTRAST Social History Tobacco Use Types Packs/Day Years Used Date Smoking Tobacco: Former Cigarettes Q uit: 2012 Smokeless Tobacco: Never Alcohol Use Standard Drinks/Week Comments Yes 0 (1 standard drink = 0.6 oz pur e alcohol) Occasionally Comments No Sex and Gender Information Value Date Recorded Sex Assigned at Not on file Legal Sex Female 1:23 PM CDT Gender Identity Not on file Sexual Orientation Not on file documented as of this encounter Plan of Treatment Upcoming Encounters Date Type Department Care Team (Late Contact Info) Description 02/04/2025 2:40 PM CDT Office Visit [facility] Oncology Services [address] [place] [phone] Wili Solomon MD [address] [place] [address] Discharge Disposition: Discharged to home or Selfcare documented as of this encounter Visit Diagnoses Not on filedocumented in this encounter Care Teams Application Engineer Relationship Specialty Start Date End Date Mervin Kevin MD [address] [address] PCP - General Family Medicine 11/21/24 documented as of this encounter
--- OUTSIDE RECORDS SUMMARY | 2025-01-17 09:22 | XMS_ITS | Clinical Summary ---
Author Organization [facility] Address [address] [place] [address] Care Team Providers Care Director Food And Beverage Name Role Phone Mervin Kevin MD Primary Care Provider [phone] Source Comments [facility],non-owned Affiliates and Associated Physician Practices is amultiple site organization consisting of ambulatory clinics and hospital sitesin [place], [place], [place] and [place]. This disclosure is being madepursuant to the Care Everywhere program and may not contain all information available regarding this patient. Last updated 18.[facility] Allergies Active Allergy Reactions Criticality Noted Date [...] mouth 2 times daily 30 tablet 11 12/30/19 18 Active albuterol HFA (PROAIR HFA) 108 (90 BASE) MCG/ACT inhaler Inhale 2 puffs by mouth every 6 hours as needed 1 Inhaler 3 12/30/19 18 Active calcium-vitami n D (OS-KRISTINE 500 + D) 500-200 mg-unit tablet Take 1 (one) tablet by mouth once daily Active albuterol (PROVENTIL;QUITA TOLIN) (2.5 MG/3ML) 0.083% nebulizer solution Inhale 2.5 mg by mouth every 4 hours as needed for Shortness of Breath or Wheezing 25 vial 5 04/27/20 18 Active loratadine (CLARITIN) 10 MG tablet Take 1 tablet by mouth once daily 30 tablet 3 06/14/20 18 Active famotidine (PEPCID) 20 MG tablet Take 1 (one) tablet by mouth 2 times daily Active predniSONE (DELTASONE) 10 MG tablet 3 tabs BID x4 days, 2 tabs BID x3 days, 1 tab BID x3 days then stop 42 tablet 12/13/19 21 Active ferrous sulfate 325 (65 FE) MG tablet Take 1 (one) tablet by mouth once daily Active fluticasone-sa lmeterol (Wixela Inhub) 250-50 MCG/ACT inhaler Inhale 1 (one) puff by mouth two times daily at 4am and 4pm Active cyclobenzaprin e (Flexeril) 10 MG tablet Take 1 (one) tablet by mouth 09/09/19 23 Active dilTIAZem (Cardizem) 30 MG tablet Take 1 (one) tablet by mouth 2 times daily Active ipratropium (Atrovent) 0.06 % nasal spray [...] 4 Grams (4000 mg) / 24 hours. 02/10/20 24 Active docusate sodium (Colace) 100 MG capsule Take 1 (one) capsule by mouth once daily 14 capsule 02/10/20 24 Active Additional Information Patient not taking.Reported on 01/16/2025 ondansetron, disintegrating , (Zofran ODT) 4 MG tablet Take 1 (one) tablet by mouth every 8 hours as needed for Nausea/Vomiting Allow tablet to dissolve on the tongue 14 tablet 02/10/20 24 Active Eliquis 5 MG tablet Take 1 (one) tablet by mouth 2 times daily 12/29/19 25 Active escitalopram (Lexapro) 10 MG tablet Active fluticasone propionate (Flonase) 50 MCG/ACT nasal spray Chandler 2 (two) sprays into the nose once daily Active Accu-Chek Guide test strip 2 times daily 09/25/19 25 Active HYDROcodone-ac etaminophen (Graff) 5-325 MG tablet Take 1 (one) tablet by mouth every 6 hours as needed pain 08/27/19 25 Active Hydrocortisone , Perianal, 1 % CREA APPLY TOPICALLY 1 APPLICATION TO AFFECTED AREA DAILY 12/21/19 25 Active ondansetron (Zofran) 4 MG tablet TAKE 1 TABLET BY MOUTH EVERY 8 HOURS NEEDED FOR NAUSEA AND VOMITING FOR 7 DAYS 12/28/19 25 Active loperamide (Imodium) 2 MG capsule PLEASE SEE ATTACHED FOR DETAILED DIRECTIONS Active vitamin D, ergocalciferol , (Drisdol) 1.25 MG (16924 UT) capsule TAKE 1 CAPSULE BY MOUTH ONE TIME PER WEEK 09/25/19 25 Active fluconazole (Diflucan) 150 MG tablet Take 1 (one) tablet by mouth once FOR 1 DOSE. 11/01/19 25 Active ERGOCALCIFEROL PO Take 1 capsule by mouth once a week 025 Discontin ued(Dose Adjustmen t) fluconazole (Diflucan) 100 MG tablet 01/29/20 24 025 Discontin ued(Dose Adjustmen t) Active Problems Patient Care Coordination No te Formatting of this note migh t be different from the original. Nopp/mfcc 12/2017 GBS + (06/09/2018) Problem Noted Date Diagnosed Date History of MRSA infection 04/14/2018 Spinal stenosis 04/14/2018 Encounter for anatomic survey 03/06/2018 Overview (04/03/2018): 03/06/2018 Yu Sanchez was screened for depression using the Coggon Depression Scale (EPDS) at her [facility] initial evaluation on 03/06/2018. Her [...] symptoms. Recommend 3rd trimester neonatology consult at [facility] due to psychiatric medications, if continued [...] from the original note were not included. [facility] PATIENT--PLEASE CALL [phone] (ex 2) IF TRIAGED OR ADMITTED Care Provider: Dr. Erasmo Wood [place] Care [place] consultants involved: RN-Rosana/Jayce; MFM-Vitor; Cleft Team-Kamila Mojica; Cardiology-Vitor Diagnosis: Cleft Lip & Palate follow up: per Cleft Team consult 03.06: Family will call to schedule a visit with the cleft palate team after the baby is born. Car Wiper: undecided as of 04.03 Planned surveillance: Repeat ultrasound at [facility] at 32w & 36w; released from [facility] on 04.03.2018 Delivery location, mode, and GA: [facility], desires vaginal delivery Genetics [...] laboratory and call the genetic counselors at [phone] or [phone] to notify that specimen is ready for sendout. Order can be placed by genetic counselor in baby's chart at that time. Please request Genetics consult postnatally if clinically indicated by calling the Genetics office at [phone] prior to ordering genetic studies. Engraver Concerns: 03/06/18- Patient with history of bipolar [...] assess growth 08/06/2019 Polyhydramnios, antepartum complication 08/11/2018 Encounters Date Type Department Care Team Description 01/16/2025 11:45 AM CDT Office Visit [facility] - Vascular Surgery [address] [place] [address], [place] [phone] Alexa Landers MD Encounter to establish care with new doctor (Primary Dx); Mass of breast, unspecified laterality; Mesenteric venous thrombosis (HCC); Thrombophilia (HCC); Systemic lupus erythematosus, unspecified SLE type, unspecified organ involvement status (HCC) 01/16/2025 Travel from Last 3 Months Immunizations Immunization Administration Dates Next Due INFLUENZA [...] 06/28/2021 Smokeless Tobacco: Never Tobacco Cessation:Counseling Given: No Alcohol Use Standard Drinks/Week Comments Not Currently 0 (1 standard drink = 0.6 oz pure alcohol) wine/mix drink on special occassions PHQ-2 Answer Date Recorded Patient Health Questionnaire-2 Score 0 02/22/2024 Comments No Sex and Gender Information Value Date Recorded Sex Assigned at Female 02/21/2024 3:10 PM CDT Legal Sex Female 3:34 PM KITCHEN HAND Gender Identity Female 02/21/2024 3:10 PM CDT Sexual Orientation Not on file Last Filed Vital Signs Vital Sign Reading Time Taken Comments Blood Pressure 85/53 01/16/2025 12:00 PM CDT Pulse 70 01/16/2025 12:00 PM CDT Temperature 36.7 C (98 F) 01/16/2025 12:00 PM CDT Respiratory Rate 16 02/10/2024 2:47 PM CDT Oxygen Saturation 98% 01/16/2025 12:00 PM CDT Inhaled Oxygen Concentration 21% 06/30/2018 8 :39 AM KITCHEN HAND Weight 73 kg (161 lb) 01/16/2025 12:00 PM CDT Height 170.2 cm (5' 7) 01/16/2025 12:00 PM CDT Body Mass Index 25.22 01/16/2025 12:00 PM CDT Plan of Treatment Health Maintenance Due Date Last Done Comments HEPATITIS B VACCINE (1 of 3 - 19+ 3-dose series) 2009 PNEUMOCOCCAL VACCINE (1 of 2 - PCV) 2009 HPV VACCINE (1 - 3-dose SCDM series) 2017 PAP SMEAR 11/24/2021 11/24/2018 COVID-19 VACCINE (4 - 2023-2 5 season) 2024 10/09/2021, 04/20/2021, 03/30/2021 INFLUENZA VACCINE (#1) 2025 , 04/27/2018 DTAP/TDAP/TD VACCINES (2 - T [...] optimum level for you. Interventions: Mobility General Deanne Arroyo, MALKA Note: Expected end date: 09/24/2021 The goal [...] Reactive Non Reactive 11/24/2018 3:32 PM CDT [facility] Blood BLOOD SPECIMEN / Unknown Venipuncture / Unknown 11/24/2018 2:32 PM CDT 11/24/2018 2:35 PM CDT Narrative [facility] - 11/24/2018 3:32 PM CDT No Laboratory evidence of HIV infection. Alondra Saxena DO LAB - CHEMISTRY ORDERAB LES Final Result [facility] [address] [place], [place] [id number] * PAP LB RFLX HPV ASCU (11/24/2018 2:32 PM CDT) Diagnosis Comment 11/29/2018 11:13 AM CDT [facility] ([facility]) Comment:NEGATIVE FOR INTRAEP ITHELIAL LESION OR MALIGNANCY. Specimen Adequacy Comment 019 11:13 AM CDT [facility] ([facility]) Comment: Satisfactory for evaluation. Endocervical and/or squamous metaplastic cells (endocervical component) are present. Performed by Comment 11/29/2018 11:13 AM CDT [facility] ([facility]) Comment:Aamir Mliler chnologist (ASCP) Comment . 11/29/2018 11:13 AM CDT [facility] ([facility]) Note Comment 11/29/2018 11:13 AM CDT [facility] ([facility]) Comment: The Pap smear is a screening test designed to aid in the detection of premalignant and malignant conditions of the uterine cervix. It is not a diagnostic procedure and should not be used as the sole means of detecting cervical cancer. Both false-positive and false-negative reports do occur. Note Comment 11/29/2018 11:13 AM CDT [facility] ([facility]) Comment: The HPV DNA reflex criteria were not met with this specimen result therefore, no HPV testing was performed. Pathology/Cytolo gy ENTIRE ENDOCERVIX / Unknown Collection / Unknown 11/24/2018 2:32 PM CDT 11/25/2018 7:38 AM CDT N[facility]ative [facility] - 11/29/2018 11:13 AM CDT Performed at: [address] [place] [id number] Manager Operating: Fe Cruz MD, Phone: [phone] Specimen Comment: Source.............Cervix;Endocervix Specimen Comment: No. of containers..01 ThinPrep Vial Alondra Saxena DO LAB - PATHOLOGY/CYTOLOG Y ORDERABLES Final Result Performing Organization Address City/[facility]/ZIP Co de Phone Number [facility] ([facility]) [address] [place] [address] * HEPATITIS C ANTIBODY (11/24/2018 2:32 PM CDT) HCV Antibody Screen Non Reactive Non Reactive 11/24/2018 4:08 PM CDT [facility] HCV S/C Ratio 0.13 0.00 - 0.79 11/24/2018 4:08 PM CDT [facility] Comment: Fovkys-jy-arkazb ratio (S/CO) <0.80: Non Reactive Blood BLOOD SPECIMEN / Unknown Venipuncture / Unknown 11/24/2018 2:32 PM CDT 11/24/2018 2:36 PM CDT Narrative [facility] - 11/24/2018 4:08 PM CDT Non Reactive - Antibodies to Hepatitis C virus (HCV) were not detected, result does not exclude early acute HCV infection. Alondra Saxena DO LAB - CHEMISTRY ORDERAB LES Final Result [facility] [address] [place] [address] from Last 3 Months or Most Recently Relevant to Health Maintenance Insurance MED[place]ID [place] Advance Directives * Full Code (Latest Code Status on File) Date Activated Date Inactivated Comments 06/28/2018 1:00 PM 06/30/2018 1:33 PM Care Teams Director Food And Beverage Relationship Specialty Start Date End Date Mervin Kevin MD [address] [facility] [address] [place] [address] PCP - General Family Medicine 12/29/17
--- OUTSIDE RECORDS SUMMARY | 2025-01-17 09:22 | XMS_ITS | Referral Summary ---
Author Organization [facility] Address [facility] [place] [address] Care Team Providers Care Chief Physical Therapist Name Role Phone Mervin Kevin MD Primary Care Provider [phone] Allergies Active Allergy Reactions Criticality Noted Date Comments Nitrofurantoin Anaphylaxis High 12/29/2017 Social History Tobacco Use Types Packs/Day Years Used Date Smoking Tobacco: Every Day Cigarettes Smokeless Tobacco: Never Personal Safety Answer Date Recorded Getting School Help Needed Not on file 08/21 Comments No Sex and Gender Information Value Date Recorded Sex Assigned at Not on file Legal 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
--- OUTSIDE RECORDS SUMMARY | 2025-01-17 09:22 | XMS_ITS | Encounter Summary ---
Author Organization [facility] Address [address] [place] [address] Phone Care Team Providers Care Program Services Assistant Name Role Phone Mervin Kevin MD Primary Care Provider [phone] Reason for Visit * Reason Onset Date Comments COPD 01/16/2025 Encounter Details Date Type Department Care Team (Late st Contact Info) Description 01/16/2025 Nurse Triage [facility] [address] [place] [address] Marla Davenport, RN [place] COPD Social History Tobacco Use Types Packs/Day Years Used Date Smoking Tobacco: Former Cigarettes Q uit: 2012 Smokeless Tobacco: Never Alcohol Use Standard Drinks/Week Comments Not Currently 0 (1 standard drink = 0.6 oz pur e alcohol) Occasionally Social Connection and Isolation Panel Answer Date Recorded In a typical week, how many times do you talk on the phone with family, friends, or neighbors? More than three times a week 01/15/2025 How often do you get togethe r with friends or relatives? Once a week 01/15/2025 How often do you attend chur ch or hinduism services? More than 4 times per year 01/15/2025 Do you belong to any clubs o r organizations such as islam groups, unions, fraternal or athletic groups, or school groups? No 01/15/2025 How often do you attend meet ings of the clubs or organizations you belong to? Never 01/15/2025 Are you , , di vorced, , never , or living with a partner? 01/15/2025 AUDIT-C Answer Date Recorded Q1: How often do you have a drink containing alcohol? Never 01/15/2025 Q2: How many drinks containi ng alcohol do you have on a typical day when you are drinking? Patient does not drink Q3: How often do you have si x or more drinks on one occasion? Never 01/15/2025 Overall Financial Resource Strain (CARDIA) Answe r Date Recorded How hard is it for you to pa y for the very basics like food, housing, medical care, and heating? Very hard 01/15/2025 [facility] [place] of Occupat ional Health - Occupational Stress Questionnaire Answer Date Recorded Do you feel stress - tense, restless, nervous, or anxious, or unable to sleep at night because your mind is troubled all the time - these days? Very much 01/15/2025 Exercise Vital Sign Answer Date Recorde d On average, how many days pe r week do you engage in moderate to strenuous exercise (like a brisk walk)? 0 days 01/15/2025 On average, how many minutes do you engage in exercise at this level? 0 min 01/15/2025 Hunger Vital Sign Answer Date Recorded Within the past 12 months, y ou worried that your food would run out before you got the money to buy more. Often true 01/16/20 25 Within the past 12 months, t he food you bought just didn't last and you didn't have money to get more. Often true 01/15/2025 PRAPARE - Transportation Answer Date Re corded In the past 12 months, has l ack of transportation kept you from medical appointments or from getting medications? No 12/26 In the past 12 months, has l ack of transportation kept you from meetings, work, or from getting things needed for daily living? No 01/15/2025 Housing Stability Vital Sign Answer Conrad e Recorded In the last 12 months, was t here a time when you were not able to pay the mortgage or rent on time? Yes 01/15/2025 In the past 12 months, how m any times have you moved where you were living? 0 01/15/2025 At any time in the past 12 m [facility], were you homeless or living in a prison (including now)? No 01/15/2025 [facility] Utilities Answer Date Recorded In the past 12 months has [employer] electric, gas, oil, or water company threatened to shut off services in your home? Already shut off 01/15/2025 Comments No Sex and Gender Information Value Date Recorded Sex Assigned at Not on file Legal Sex Female 1:23 PM CDT Gender Identity Not on file Sexual Orientation Not on file documented as of this encounter Miscellaneous Notes * Addendum Note - Dorie Vazquez APRN, CNP - 01/16/2025 3:51 PM CDT Addended by: DORIE VAZQUEZ on: 01/16/2025 03:51 PM Modules accepted: Orders * Telephone Encounter - Marla Davenport RN - 01/16/2025 2:19 PM CDT [facility] Contacted patient due to a caresignal alert. Introduced self and stated reason for call. [facility] Chronic Condition Remote Patient Monitoring Program - chronic obstructive pulmonary disease(COPD) . Situation: Patient triggered an alert for breathing worse at 2:15pm. Background: Patient reports she got up this morning and went to a gastrointestinal ([facility]) appointment where the pulse oximeter level was either 88% or 86%. Patient states her pulse oximeter level is always low when it is checked at appointments but she doesn't have a home pulse oximeter. Assessment: She reports she always feels short of breath and it is worse than usual due to the heat. She has also been coughing up a lot of brown phlegm since she was released from the hospital on 12/27/24 (states she had a blood clot in liver and spleen). Recommendation: Patient doesn't feel that she is at the point of needing emergency department (ED).She is agreeable to a video visit with our providers. Video visit scheduled today at 3:30pm, provider notified. Instructed patient to go to emergency department (ED) if symptoms worsen prior to the visit. The disposition from the triage is go to Emergency Department (ED) now. Per department workflow, patient has been scheduled for a visit with an [facility]. Patient has been scheduled for a visit with [facility] provider. All questions and concerns were answered. Medication Review- Request for Provider to Review Duplicate therapy noted. Medications: Linzess, Eliquis, Zofran, Advair, Vitamin D. Patient not taking medication(s) as prescribed. Medication: Azithromycin, Benzonatate, Cephalexin, Doxycycline, Fluconazole, Sertraline, Wixella, Symbicort, Imodium, Colace, Cyclobenzaprine. Unable to complete full outside medication reconciliation due to override errors. Leadership is aware and looking into this. For Remote Patient Monitoring patient reported vitals, please navigate to review flowsheets and select [facility] PATIENT REPORTED DATA [[id number]]. 1. ONSET: When did the cough begin? 12/27/24 2. SEVERITY: How bad is the cough today? States I'm coughing all throughout the day and it gives me a headache 3. SPUTUM: Describe the color of your sputum (e.g., none, dry cough; clear, white, yellow, green) Brown 4. HEMOPTYSIS: Are you coughing up any blood? If Yes, ask: How much? (e.g., flecks, streaks, tablespoons, etc.) Denies 5. DIFFICULTY BREATHING: Are you having difficulty breathing? If Yes, ask: How bad is it? (e.g., mild, moderate, severe) Worse than usual today, described as moderate today 6. FEVER: Do you have a fever? If Yes, ask: What is your temperature, how was it measured, and when did it start? Denies fever but states she's been sweating a lot since being on blood thinners 7. CARDIAC HISTORY: Do you have any history of heart disease? (e.g., heart attack, congestive heart failure) Heart attack and stroke at age 18. Recently diagnosed with atrial fibrillation (Afib) 8. LUNG HISTORY: Do you have any history of lung disease? (e.g., pulmonary embolus, asthma, emphysema) Chronic obstructive pulmonary disease (COPD), emphysema, bronchitis, asthma 9. PE RISK FACTORS: Do you have a history of blood clots? (or: recent major surgery, recent prolonged travel, bedridden) Recent hospitalization for blood clot in liver and spleen. States she is having genetic test done by planing machine operator/oncologist to see what the cause is. Denies blood clots in lung and leg. Denies recent surgery, prolonged travel, bedridden 10. OTHER SYMPTOMS: Do you have any other symptoms? (e.g., runny nose, wheezing, chest pain) Wheezing. Denies runny nose and chest pain. 11. : Is there any chance you are ? When was your last menstrual period? Currently on period, denies chance of . States had tubal 12. TRAVEL: Have you traveled out of the country in the last month? (e.g., travel history, exposures) Denies Go to ED Now documented in this encounter Plan of Treatment Upcoming Encounters Date Type Department Care Team (Late st Contact Info) Description 02/04/2025 2:40 PM CDT Office Visit [facility] [address] [place] [address] Wili Solomon MD [address] [place] [address] Discharge Disposition: Discharged to home or Selfcare documented as of this encounter Goals Goal Patient Goal Type Associated Problems Recent Progress Patient-Stated? Author Manage My Emotions Patient Goals Nuria Chew documented as of this encounter Visit Diagnoses Not on filedocumented in this encounter Care Teams Program Services Assistant Relationship Specialty Start Date End Date Mervin Kevin MD [address] [facility] [address] [place] [address] PCP - General Family Medicine 11/21/24 documented as of this encounter
--- OUTSIDE RECORDS SUMMARY | 2025-01-17 09:22 | XMS_ITS | Data Portability ---
Author Organization [place] - [facility] [employer] [facility], Main Office Address [address] [place] [address] Care Team Providers Care Order Processor Name Role Phone MERVIN KEVIN Referring Provider [...] 90 mcg/actua tion aerosol inhaler 2024 025 [facility]/Pharmacy #[id number], [address], [place], [address], 10/02/2024 12:40:21 Wixela Inhub 250 mcg-50 mcg/dose powder for inhalatio n [address] [id number] [address] [place], [address], 10/02/2024 12:40:22 ipratropi um bromide 42 mcg (0.06 %) nasal spray [address] [id number], [address] [place], [address], 10/02/2024 12:40:21 albuterol sulfate HFA 90 mcg/actua tion aerosol inhaler 2023 024 [facility]/Pharmacy #[id number], [address] [place], [address], 01/12/2024 11:00:41 Wixela Inhub 250 mcg-50 mcg/dose powder for inhalatio n 2023 024 [facility]/Pharmacy #[id number], [address] [place], [address], 01/12/2024 11:00:41 ipratropi um bromide 42 mcg (0.06 %) nasal spray 2023 024 [facility]/Pharmacy #[id number], [address], [place], [address], 01/12/2024 11:00:42 albuterol sulfate HFA 90 mcg/actua tion aerosol inhaler 2022 023 [facility]/Pharmacy #[id number], [address], [place], [address], 02/07/2023 10:06:41 ipratropi um bromide 42 mcg (0.06 %) nasal spray 2022 023 [facility]/Pharmacy #[id number], [address], [place], [address], 02/07/2023 10:00:36 Patient TargetsNo targets recorded. Patient Instructions Encounter Date Encounter Id Patient Instructions Last Modified By Organization Details Last Modified Time 02/07/2023 [id number] complete PFT w/ post bronchodilator spirometry* - No auth needed Not available 01/02/2024 15:47:26 01/12/2024 [id number] complete PFT w/ post bronchodilator spirometry* [email or web address] Not available 08/13/2024 17:15:39 10/02/2024 [id number] complete PFT w/ post bronchodilator spirometry* Not available 10/02/2024 12:40:16 Reason for Referral None Reported. Results Created Date Observation Date Name Description Value Unit Range Abnormal Flag Note LastModifiedBy Organization Detail LastModifiedTime 07/28/1907/28/2022 [place], modif ied spike villafana ow study No observ ation record ed. [id number] [facility] [address] [place], [address], 08/25/2022 13:32:14 07/28/19 23 07/28/2022 CT, chest , w/o contr ast No observ ation record ed. [id number] [facility] [address] [place], [address], 08/25/2022 13:32:14 08/03/19 23 07/28/2022 [place], modif ied spike villafana ow study No observ ation record ed. [id number] [facility] ([facility] Scheduling) [address] [place], [address], 08/25/2022 13:32:14 02/02/20 23 01/31/2023 compl ete PFT w/ post [facility] hodil ator michelle metry * No observ ation record ed. [facility] (One Call Scheduling) [address] [place], [address], 02/01/2023 17:29:30 10/05/19 25 10/02/2024 compl ete PFT w/ post [facility] hodil ator michelle metry * No observ ation record ed. [facility] (One Call Scheduling) [address] [place], [address], 10/04/2024 17:32:29 Result Notes None recorded. 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 Procedures Surgical History Date Name Laterality Status Provider Name and Address Organization Details Recorded Time 11/19/19 23 Hysterectomy completed Irma Mohr MA [place] [facility] [place] [facility] 02/07/2023 09:43:48 section completed Not Available [facility] 08/25/2022 13:29:35 Imaging Results None recorded. Procedure Notes None recorded. Medical Equipment None Reported. Allergies Allergen ID Allergen Name Allergen Category Reaction Reaction Severity Criticality Documentation Date Start Date Code Code System Note Provider Name and Address Organization Details Recorded Time 95399 Macrobid medicatio n Not available Not available Not available 08/25/2022 44915 1 RxNorm Not Available [facility] 13:32:12 Medications Name Sig Start Date [...] Respiratory rate Body temperature Body weight Systolic And Diastolic Provider Name and Address Organization Details Last Updated DateTime 3 26 kg/m2 72 /min 165.1 cm 97 % 97 % 72 /min 15 /min 98.6 [degF] 51581.4 1 g 110/66 mm[Hg] Not Available [facility] 3 13:30:03 Date Recorded Body mass index (BMI) Heart rate Body height Oxygen saturation Oxygen saturation in Arterial blood by Pulse oximetry Heart rate Respiratory rate Body temperature Body weight Systolic And Diastolic Provider Name and Address Organization Details Last Updated DateTime 3 26 kg/m2 61 /min 165.1 cm 97 % 97 % 61 /min 15 /min 98.2 [degF] 07775.4 1 g 108/60 mm[Hg] Not Available [facility] 3 13:30:04 Date Recorded Heart rate Respiratory rate Provider N abelino and Address Organization Details Last Updated DateTime 10/02/2024 80 /min 15 /min Ruslan Reid MD [address] [facility], [facility] [address], [place], [address], [place] [employer] [facility] 10/02/2024 12:45:32 Date Recorded Body height Body mass index (BMI) Body weight Body temperature Heart rate Oxygen saturation Oxygen saturation in Arterial blood by Pulse oximetry Systolic And Diastolic Provider Name and Address Organization Details Last Updated DateTime 5 165.1 cm 26.6 kg/m2 90787.7 8 g 98.3 [degF] 80 /min 98 % 98 % 116/66 mm[Hg] Irma Mohr MA [facility] [employer] [facility] 5 12:20:22 Date Recorded Body height Body mass index (BMI) Body weight Oxygen saturation Oxygen saturation in Arterial blood by Pulse oximetry Body temperature Heart rate Systolic And Diastolic Provider Name and Address Organization Details Last Updated DateTime 4 165.1 cm 25 kg/m2 70479.8 6 g 98 % 98 % 98.1 [degF] 87 /min 118/68 mm[Hg] Fabian Lowe CMA [facility] [employer] [facility] 4 10:40:20 Date Recorded Heart rate Oxygen saturation Oxygen saturation in Arterial blood by Pulse oximetry Heart rate Respiratory rate Provider Name and Address Organization Details Last Updated DateTime 3 59 /min 99 % 99 % 59 /min 15 /min Ruslan Reid MD [address] [facility], [facility] [address], [place], [address], [facility] 3 10:07:55 Date Recorded Body height Body mass index (BMI) Body weight Body temperature Systolic And Diastolic Provider Name and Address Organization Details Last Updated DateTime 02/07/2023 165.1 cm 25 kg/m2 15502.8 6 g 98.1 [degF] 110/68 mm[Hg] Irma Mohr MA [facility] [employer] [facility] 3 09:47:14 Social History Question Answer Notes LastModified by Organizat ion Details LastModified Time Tobacco Smoking Status Former Smoker quit 3 years ago Irma Mohr MA null, [facility] 10/02/2024 12:17:03 What Is Your Level Of Caffeine Consumption? Occasional [id number].84378 [id number] Information not available 08/25/2022 In The 14 Days Before Symptom Onset, Have You Had Close Contact With A Laboratory-confi rmed COVID-19 While That Case Was Ill? No MIGRATION.69319 16211 Information not available 08/25/2022 In The 14 Days Before Symptom Onset, Have You Had Close Contact With A Person Who Is Under Investigation For COVID-19 While That Person Was Ill? No MIGRATION.18653 40042 Information not available 08/25/2022 What Type Of Diet Are You Following? REGULAR MIGRATION.89021 62160 Information not available 08/25/2022 Do You Have An Electrostatic Air Filter? Yes MIGRATION.62533 73106 Information not available 08/25/2022 Are There Any Guns Present In Your Home? No MIGRATION.99975 62789 Information not available 08/25/2022 Do You Have A Humidifier? Yes MIGRATION.78441 64057 Information not available 08/25/2022 Where Do You Live? [place] MIGRATION.60826 50244 Information not available 08/25/2022 Do You Have Moisture Problems In Your Home? No MIGRATION.57320 71161 Information not available 08/25/2022 What Was The Date Of Your Most Recent Tobacco Screening? 10/02/2024 Information not available 10/02/2024 Do You Have Any Pets? Yes MIGRATION.75998 27346 Information not available 08/25/2022 Do You Use Your Seat Belt Or Car Seat Routinely? Yes Information not available 10/02/2024 Do You Have Smoke And Carbon Monoxide Detectors In Your Home? Yes MIGRATION.64512 91095 Information not available 08/25/2022 At What Age Did You Start Smoking Tobacco? 13 MIGRATION.27018 08886 Information not available 08/25/2022 Are You Passively Exposed To Smoke? No MIGRATION.34966 00445 Information not available 08/25/2022 How Much Tobacco Do You Smoke? No MIGRATION.31230 56270 Information not available 08/25/2022 Do You Use Sunscreen Routinely? No MIGRATION.98310 38922 Information not available 08/25/2022 How Many Years Have You Smoked Tobacco? 16 MIGRATION.81345 75858 Information not available 08/25/2022 Have You Recently Traveled Abroad? No MIGRATION.97617 54327 Information not available 08/25/2022 Do You Have Any Dietary Restrictions? No MIGRATION.04867 73223 Information not available 08/25/2022 Sex: Female Functional Status Question Answer Note LastModified by Organizat ion Details LastModified Time Do you use any illicit or recreational drugs? Yes marijuana MIGRATION.12891 00844 Information not available 08/25/2022 Do you or have you ever used any other forms of tobacco or nicotine? No Information not available 10/02/2024 What is your level of alcohol consumption? None MIGRATION.22896 55858 Information not available 08/25/2022 Have you been exposed to chemicals or toxins? 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 Heavy MIGRATION.48621 14547 Information not available 08/25/2022 Mental Status Question Answer Note LastModified by Organizat ion Details LastModified Time Do you feel stressed (tense, restless, nervous, or anxious, or unable to sleep at night)? [id number] MIGRATION.[id number] 6 Information not available 08/25/2022 Family History Relationship Description Onset Age of this Age Resolved Age Notes LastModified by Organization Details LastModified Time Father Family history of malignant neoplasm MIGRATION.735 [id number] Not available 08/25/2022 13:29:36 Father Blood coagulation disorder MIGRATION.952 [id number] Not available 08/25/2022 13:29:36 Father Diabetes mellitus MIGRATION.508 7100121 Not available 08/25/2022 13:29:36 Father Chronic obstructive pulmonary disease MIGRATION.386 [id number] Not available 08/25/2022 13:29:36 Brother Asthma MIGRATION.630 [id number] Not available 08/25/2022 13:29:36 Sister Asthma MIGRATION.836 [id number] Not available 08/25/2022 13:29:36 Paternal Grandmother Asthma MIGRATION.886 [id number] Not available 08/25/2022 13:29:36 Maternal Grandmother Asthma MIGRATION.718 [id number] Not available 08/25/2022 13:29:36 Medical History Condition [...] PROBLEMS N STROKE/TIA N CHEST CT Y ULCERS [...] HAVE YOU BEEN HOSPITALIZED OR SEEN IN [facility] ER IN THE PAST YEAR ? N [...] mL dose 04/20/2021 completed Not Available [facility] 4 17:07:19 COVID-19, mRNA, LNP-S, PF, 30 mcg/0.3 mL dose 03/30/2021 completed Not Available [facility] 4 17:07:19 Past Encounters Encounter ID Performer Location Encounter Start Date Encounter Closed Date Diagnosis/Indication Diagnosis SNOMED-CT Code Diagnosis ICD10 Code Diagnosis Note [id number] MD CLAUDIA Houston_[facility]MD[facility] [address] [address] 04/09/2021 00:00:00 04/09/2021 09:36:09 [id number] MD CLAUDIA Houston_GMDena [address] [address] 04/23/2021 00:00:00 04/23/2021 11:07:07 [id number] MD CLAUDIA Preciado_GMD[facility] Pulmon[facility] [address] [address] 10/08/2021 00:00:00 10/08/2021 15:19:33 [id number] MD CLAUDIA Preciado_GMG Pulmonolo [facility] [address] [place] [address] 10/22/2021 00:00:00 10/22/2021 15:34:32 [id number] MD CLAUDIA Preciado_GMG Pulmon[facility] [address] [place] [address] 04/22/2022 00:00:00 04/22/2022 13:17:16 [id number] MD CLAUDIA Preciado_GMG [facility] [address] [address] 07/15/2022 00:00:00 07/15/2022 16:05:23 [id number] MD CLAUDIA Preciado_GMDena Pulmon[place] [address] [address] 08/05/2022 00:00:00 08/05/2022 15:35:19 [id number] MD CLAUDIA Preciado_GMG [facility] [address] [address] 02/07/2023 09:27:31 02/08/2023 10:11:10 Posterior rhinorrhea 26442710 R09.82 Severe per sistent asthma 565969830 J45.50 [id number] MD CLAUDIA Preciado_GMG [facility] [address] [address] 01/12/2024 10:29:39 01/13/2024 08:21:56 Severe persistent asthma 720990456 J45.50 Posterior rhinorrhea 758 93631 R09.82 [id number] Karie Juares NP [facility] [address] [place] [address] 07/05/2024 14:05:19 07/05/2024 17:28:27 [id number] [facility] [address] [place] [address] 08/02/2024 14:32:51 08/02/2024 15:49:42 [id number] Ruslan Reid MD [facility] [address] [address] 10/02/2024 11:57:56 10/03/2024 13:12:21 Severe persistent asthma 262325615 J45.50 Posterior rhinorrhea 758 94339 R09.82 Health Concerns Section Related Observation LastModified by Organization Detai ls LastModified Time None Recorded Concern Status LastModified by Organization Details LastModified Time None Recorded Advance Directives Directive None Recorded Payers Insurance Date Sequence Insurance Name Policy Number Policy Barrett Covered Member ID Barrett Member ID Guarantor Name 10/02/2024 1 [place] [id number] 1 Yu D Daniel [id number] [place] D Daniel 12/01/2024 1 [place] [facility] Yu D Daniel [id number] Yu D Daniel 10/30/2024 2 [place] [id number] 1 Yu D Daniel [id number] [place] D Daniel Notes Date Note Type Note [...] 20 lbs objectsAlleviating factors: restModified [employer] [place] (m[facility]C) Dyspnea Scale - Grade 2Grade 0 [...] moderate chance of dozing. Ruslan Reid MD [address] [place] [address], [address], [place], [address], [place] [facility] [place] [facility] 08/17/2023 14:56:20 01/12/2024 text/html Primary care/Ref erring provider: Mervin Kevin, MDPatient is here to go over her asthma management.Initial development of shortness of breath: 2005Duration of shortness of breath: 19 yearsCondition of shortness of breath: stableTiming of shortness of breath: morning and bedtimeFrequency: up to 10 times a dayLimits activities: yesAggravating factors: walking, lifting 20 lbs objectsAlleviating factors: restModified [employer] [place] (mMRC) Dyspnea Scale - Grade 2Grade 0 [...] 300 mg q 12 h 03/11/22 - 09/21/22Azithromycin 250 mg 03/27/22 - 03/31/22Amoxicillin 500 mg [...] moderate chance of dozing. Ruslan Reid MD [address] [place] [address], [facility] [address], [place], [address], [facility] 01/12/2024 11:03:36 10/02/2024 text/html [...] 20 lbs objectsAlleviating factors: restModified [employer] [place] (mMRC) Dyspnea Scale - Grade 2Grade 0 [...] moderate chance of dozing. Ruslan Reid MD [address] [place] [address], [place] [address], [place], [address], [place] [facility] 10/02/2024 12:46:55 OBGyn Episode No OBEpisode recorded.
--- OUTSIDE RECORDS SUMMARY | 2025-01-17 09:22 | XMS_ITS | Continuity of Care Document ---
Author Organization [facility] Address [address] [facility] [address] [place] [address] Phone Care Team Providers Care Yarn Handler Name Role Phone Rausch OD, Erasmo Unavailable Unavailable Advance Directives Directive Yes / No Effective Date File Name No Information Encounters Encounter Description Practice Location Reason(s) For Visit Diagnoses Date Provider Providers Copied on Encounter [facility], [address], [place], [place], [id number], [place] tel:[phone] [facility] [place] No Information Apr- 4-200 4 Rausch OD Erasmo. [address] [facility] [address] , [address], [place], [address], [place]. tel:[phone] Family History Family Member Type Diagnosis Age At Onset No Information Payers Payer name Insurance type Covered democrat ID Authoriza tion(s) Medicaid [facility] [id number] Social History Type Description Quantity Date Captured [...]
--- OUTSIDE RECORDS SUMMARY | 2025-01-17 09:22 | XMS_ITS | Clinical Summary ---
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 Gender Identity Not on file Sexual Orientation Not on file Last Filed Vital Signs Vital Sign Reading Time Taken Comments Blood Pressure 111/67 07/29/2017 9:58 AM FAMILY PROTECTION SPECIALIST Pulse 72 07/29/2017 9:58 AM FAMILY PROTECTION SPECIALIST Temperature - - Respiratory Rate - - Oxygen Saturation - - Inhaled Oxygen Concentration - - Weight 68 kg (150 lb) 07/29/2017 9:58 AM FAMILY PROTECTION SPECIALIST Height 170.2 cm (5' 7) 07/29/2017 9:58 AM FAMILY PROTECTION SPECIALIST Body Mass Index 23.49 07/29/2017 9:58 AM FAMILY PROTECTION SPECIALIST Plan of Treatment Health Maintenance Due Date Last Done Comments Cervical Cancer Screening Pa p Smear (Age 30 to 64) Every 3 Years 1990 Annual Physical 1993 Hepatitis C 2008 DTaP, Tdap and Td Vaccines ( 1 - Tdap) 2009 Hepatitis B Vaccines (1 of 3 - 19+ 3-dose series) 2009 HPV Vaccines (1 - 3-dose SCD M series) 2017 Cervical Cancer Screening Pa p with HPV Testing (Age 30 to 64) Every 5 Years 2020 Cervical Cancer Screening with HPV 2020 COVID-19 Vaccine (2023-2 5 season) 2024 Meningococcal B Vaccine Aged Out No l [...] to complete this topic Insurance Care Teams Forestry Biology Specialist Relationship Specialty Start Date End Date Mervin Kevin MD [address] [address] PCP - General FAMILY PRACTICE 06/30/17
--- OUTSIDE RECORDS SUMMARY | 2025-01-17 09:22 | XMS_ITS | Continuity of Care Document ---
Author Organization [facility] Address [address] [address] Phone Care Team Providers Care Outdoor Adventure Instructor Name Role Phone Pinky Daniels MD Unavailable [...] [facility], [address], [id number], [place] tel:[phone] [facility] No Information [address]. [address], [place], [address], [place]. tel:[phone] Referring Provider: Mervin Kevin, [address] [place] [address], [id number]. tel:[phone] Est (Level 4) OFFICE/OUTPA TIENT VISIT [facility], [address] [place] [address], [id number], [place] tel:[phone] [facility] [place] allergy symptoms (chief complaint) Recurrent acute suppurative otitis media w/o spontaneous rupture of ear drum of earOther allergic rhinitisSevere persistent asthmaAbnormal results of function studies of other systemsRe[facility] 2 [address]. [address], [place], [address], [place]. tel:[phone] Referring Provider: Mervin Kevin, [address] [place] [address], [id number]. tel:[phone] Est (Level 3) OFFICE/OUTPA TIENT VISIT [facility], [address] [place] [address], [id number], [place] tel:[phone] [facility] [place] recurrent infections (chief complaint) Recurrent acute suppurative otitis media w/o spontaneous rupture of ear drum of earOther allergic rhinitisSevere persistent asthmaAbnormal results of function studies of other systems 0 [address]. [address], [place], [address], [place]. tel:[phone] Referring Provider: Ruslan Reid, [address] [facility] [address], [place], [address]. tel:[phone] Est (Level 4) OFFICE/OUTPA TIENT VISIT [facility], [address] [place] [address], [id number], [place] tel:[phone] [facility] [place] recurrent infections (chief complaint) Recurrent acute suppurative otitis media w/o spontaneous rupture of ear drum of earSevere persistent asthmaOther allergic rhinitisAbnorma l results of function studies of other systems [address]. [address], [place], [address], [place]. tel:[phone] Referring Provider: Ruslan Reid, [address] [facility] [address], [place], [address]. tel:[phone] New (Level 4) OFFICE/OUTPA TIENT VISIT [facility], [address] [place] [address], [id number], [place] tel:[phone] [facility] [place] recurrent infections (chief complaint) Recurrent acute suppurative otitis media w/o spontaneous rupture of ear drum of earSevere persistent asthmaOther allergic rhinitis Fe-0 3 [address] Ches[address]. [address], [place], [address], [place]. tel:[phone] Referring Provider: Ruslan Reid, [address] [facility], [place], [address]. tel:[phone] Family History Family Member Type Diagnosis Age At Onset Paternal aunt Problem rheumatoid arthritis Father Problem Allergic rhinitis Brother Problem Asthma Paternal aunt Problem Lupus erythematosus Sister Problem Asthma Paternal grandmother Problem Asthma Payers Payer name Insurance type Covered republican ID Authoriza timunir(s) [facility] [id number] Social History Type Description Quantity Date Captured Comments Alcohol Use Details Unknown Caffeine Use Details Unknown Tobacco Use Status No Information Smoking Status No Information Sex Female Chief Complaint And Reason For Visit No Information Reason For Referral Reason For Referral No Information Plan Of Treatment Date Type Action Status Future Order: Lab Order S. Pneum onia-23 Serotypes ([id number]), Sent on: Sent Future Order: Lab Order CBC With Diff ([id number]), Sent on: Sent Future Order: Lab Order ESR ([id number]), Sent o n: Sent Future Order: Lab Order CRP ([id number]), Sent on: Sent Future Order: Lab Order Comprehe nsive Metabolic Panel ([id number]), Sent on: Sent Future Order: Lab Order CBC With Differential ([id number]), Sent on: Sent Future Order: Lab Order Compleme nt Total (CH50) ([id number]), Sent on: Sent Future Order: Lab Order Immunogl obulins A/E/G/M, Serum ([id number]), Sent on: Sent Future Order: Lab Order Mannose Binding Lectin ([id number]), Sent on: Sent Future Order: Lab Order Strep Pn eumo 23 ([id number]), Sent on: Sent Future Order: Lab Order T- and B -Lymphocyte and Natural Killer Cell Profile ([id number]), Sent on: Sent Future Order: Lab Order Tetanus/ Diphtheria Antibody Profile ([id number]), Sent on: Sent History Of Present Illness [...] protective(She had Pneumovax on 09/02/22)08/12/22IgIgA: 126IgM: 79IgE: 057RE40: 58AH50: (deferred)Anti-Spn 23: decreased 02/16 = 65% protectiveAnti-Diphtheria: 0.1 (protective)Anti-Tetanus: 1.17 (protective)AEC: 215AANC: 16,641Flow CytometryCD3+: 56% (L), 1612 (wnl)CD3+CD4+: 35%, 3155FL3+CD8+: 26%, 772CD4/CD8 Ratio: 1.33CD16+CD56+: 32% (H), 912 (H)CD19+: 10%, (poor scan quality, best interpretation listed)IgG 995*IgG1 594*IgG2 270*IgG3 74*IgG4 74Environmental Immunocaps: +HDM, cockroach, grass, trees, weeds other than ragweed with total IgE [id number] Phenotype: PI*MMTB Quant Gold: negativeHRCT Chest on [...] are planning a colonoscopy future.Data08/12/22IgIgA: 126IgM: 79IgE: 705PN00: 58AH50: (deferred)Anti-Spn 23: decreased 02/16 = 65% protectiveAnti-Diphtheria: 0.1 (protective)Anti-Tetanus: 1.17 (protective)AEC: 215AANC: 16,641Flow CytometryCD3+: 56% (L), 1612 (wnl)CD3+CD4+: 35%, 1167BZ3+CD8+: 26%, 772CD4/CD8 Ratio: 1.33CD16+CD56+: 32% (H), 912 (H)CD19+: 10%, (poor scan quality, best interpretation listed)IgG 995*IgG1 594*IgG2 270*IgG3 74*IgG4 74Environmental Immunocaps: +HDM, cockroach, grass, trees, weeds other than ragweed with total IgE [id number] Phenotype: MMTB Quant Gold: negativeHRCT Chest on [...] will see hematology next month.Data08/12/22IgIgA: 126IgM: 79IgE: 531AJ91: 58AH50: (deferred)Anti-Spn 23: decreased 02/16 = 65% protectiveAnti-Diphtheria: 0.1 (protective)Anti-Tetanus: 1.17 (protective)AEC: 215AANC: 16,641Flow CytometryCD3+: 56% (L), 1612 (wnl)CD3+CD4+: 35%, 9911VZ3+CD8+: 26%, 772CD4/CD8 Ratio: 1.33CD16+CD56+: 32% (H), 912 (H)CD19+: 10%, (poor scan quality, best interpretation listed)IgG 995*IgG1 594*IgG2 270*IgG3 74*IgG4 74Environmental Immunocaps: +HDM, cockroach, grass, trees, weeds other than ragweed with total IgE [id number] Phenotype: MMTB Quant Gold: negativeHRCT Chest on [...] weeds other than ragweed with total IgE [id number] Phenotype: MMTB Quant Gold: negativeHRCT Chest on [...]
--- OUTSIDE RECORDS SUMMARY | 2025-01-17 09:22 | XMS_ITS | Encounter Summary ---
Author Organization [facility] Address [address] [facility] [place] [address] Care Team Providers Care Principal Clerk Name Role Phone Mervin Kevin MD Primary Care Provider [phone] Encounter Details Date Type Department Care Team (Latest Contact Info) Description 01/16/2025 Travel Social History Tobacco Use Types Packs/Day Years Used Date Smoking Tobacco: Former Cigarettes 0.5 14 0 06/28/2007 - 06/28/2021 Smokeless Tobacco: Never Alcohol Use Standard Drinks/Week Comments Not Currently 0 (1 standard drink = 0.6 oz pure alcohol) wine/mix drink on special occassions PHQ-2 Answer Date Recorded Patient Health Questionnaire-2 Score 0 02/22/2024 Comments No Sex and Gender Information Value Date Recorded Sex Assigned at Female 02/21/2024 3:10 PM CDT Legal Sex Female 3:34 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 Answer Date of Assessment Author No 06/28/2018 1:07 PM Vidal Pastor RN * Is person blind or have serious difficulty seeing? Answer Date of Assessment Author No 06/28/2018 1:07 PM Vidal Pastor RN * Does person have serious difficulty walking/climbing stairs? Answer Date of Assessment Author No 06/28/2018 1:07 PM Vidal Pastor RN * Does person have difficulty dressing/bathing? Answer Date of Assessment Author No 06/28/2018 1:07 PM Vidal Pastor RN * Does person have difficulty doing errands alone? Answer Date of Assessment Author No 06/28/2018 1:07 PM Vidal Pastor RN documented as of this encounter Mental Status * Does person have difficulty concentrating/remembering/making decisions? Answer Entry Date Author No 06/28/2018 1:07 PM Vidal Pastor RN documented in this encounter Plan of Treatment Not on file documented as of this encounter Goals Goal [...] to your last dose Mobility General Deanne Arroyo RN Note: Expected end date: 06/26/2021 The goal is to maintain or improve your mobility at the optimum level for you. Interventions: Mobility General No Deanne Rodriguez RN Note: Expected end date: 09/24/2021 The goal is to maintain or improve your mobility at the optimum level for you. Interventions: documented as of this encounter Visit Diagnoses Not on filedocumented in this encounter Care Teams Principal Clerk Relationship Specialty Start Date End Date Mervin Kevin MD [address] [place] [address] PCP - General Family Medicine 12/29/17 documented as of this encounter
--- OUTSIDE RECORDS SUMMARY | 2025-01-17 09:22 | XMS_ITS | Clinical Summary ---
Author Organization [facility] Address [address] [place] [address] Phone Care Team Providers Care Cable Installation Technician Name Role Phone Mervin Kevin MD Primary Care Provider [phone] Allergies Active Allergy Reactions Criticality Noted Date Comments Nitrofurantoin Other (see Comments) High 10/23/2021 Other-Environmental Allergen (Not Found In Search) Other (see Comments) 01/16/2025 Grass, cottonwood Medications fluticasone (FLONASE) 50 MCG/ACT Suspension 2 Sprays by Nasal route daily. Active ergocalciferol (VITAMIN D) 49462 UNIT Capsule Take 1.25 mg by mouth once a week. 09/25/19 25 Active omeprazole (PriLOSEC) 40 MG CAPSULE DELAYED RELEASE Take 40 mg by mouth daily. 09/18/19 23 Active valACYclovir (VALTREX) 500 MG Tablet Take 500 mg by mouth daily. 12/30/19 18 Active dilTIAZem (CARDIZEM) 30 MG Tablet Take 30 mg by mouth 2 times daily. 12/16/19 24 Active escitalopram (LEXAPRO) 10 MG Tablet Take 10 mg by mouth daily. Active ferrous sulfate 325 (65 Fe) MG Tablet Take 325 mg by mouth daily. Active famotidine (PEPCID) 20 MG Tablet Take 20 mg by mouth daily. 09/18/19 23 Active metoprolol Succinate (TOPROL-XL) 50 MG TABLET SR 24 HR Take 50 mg by mouth daily. 01/09/20 22 Active diphenhydrAMINE (BENADRYL) 25 MG Capsule Take 25 mg by mouth every 6 hours as needed for Allergies. Active ondansetron (ZOFRAN) 4 MG Tablet Take 4 mg by mouth every 8 hours as needed. Active Advair Diskus 250-50 MCG/ACT AEROSOL POWDER, BREATH ACTIVATED take 1 Puff by inhalation 2 times daily. Active Hydrocortisone Acetate 1.12 %(1% Base) Cream 2 times daily as needed. Chest and neck 12/21/19 25 Active acetaminophen (TYLENOL) 500 MG Tablet Take 500 mg by mouth every 4 hours as needed. 02/10/20 24 Active Blood Glucose Monitoring Suppl (Accu-Chek Guide Me) w/Device Kit Twice daily, more if symptomatic Active Blood Glucose Monitoring Suppl (Accu-Chek Guide Me) w/Device Kit Twice daily, more if symptomatic 07/04/19 23 Active Glucose Blood (Accu-Chek Guide Test) Strip Two times per day, more if symptoms occur 09/25/19 25 Active Accu-Chek Softclix Lancets Misc Accu-Chek Softclix Lancets Active ipratropium (ATROVENT) 0.06 % Solution 1 [place] by Nasal route daily. 07/15/19 23 Active albuterol (PROVENTIL, VENTOLIN) (2.5 MG/3ML) 0.083% Nebulizer Soln take 2.5 mg by inhalation every 4 hours as needed. 04/27/20 18 Active albuterol 108 (90 Base) MCG/ACT Aerosol Solution take 1-2 Puffs by inhalation every 4 hours as needed for Wheezing or Cough. Active apixaban (Eliquis) 5 MG Tablet Take 5 mg by mouth 2 times daily. 12/29/19 25 Active SUMAtriptan (Imitrex) 25 MG Tablet Take 25 mg by mouth once as needed. Use as directed. May repeat dose in 2 hours if headache recurs. Active azithromycin (ZITHROMAX) 250 MG TabletIndication s:Bronchitis, chronic with acute exacerbation (HCC) 2 tab(s) daily for 1 day, then 1 tab(s) daily for days 2-5. 6 Tablet 01/17/20 25 025 Active predniSONE (DELTASONE) 20 MG TabletIndication s:Bronchitis, chronic with acute exacerbation (HCC) Take 2 Tablets by mouth daily for 5 days. 10 Tablet 01/17/20 25 Active albuterol 108 (90 Base) MCG/ACT Aerosol Solution take 1-2 Puffs by inhalation every 4 hours as needed for Wheezing. 12/30/19 18 Discontinu ed(Duplica te Order) linaCLOtide (Linzess) 72 MCG Capsule Take 72 mcg by mouth daily. Discontinu ed(Contact Move - Error) Eliquis 5 MG Tablet Take 5 mg by mouth 2 times daily. 12/29/19 Discontinu ed(Duplica te Order) Accu-Chek Guide Test Strip use to test twice daily Glucose Blood (Accu-Chek Guide Test) Strip Accu-Chek Guide test strips strip docusate sodium 100 MG Capsule Take 100 mg by mouth daily. 02/10/20 Discontinu ed(Med List Clean Up) Hydrocortisone, Perianal, 1 % Cream APPLY TOPICALLY 1 APPLICATION TO AFFECTED AREA DAILY 12/21/19 Discontinu ed(Med List Clean Up) ibuprofen (MOTRIN) 600 MG Tablet TAKE 1 TABLET (600 MG) BY MOUTH EVERY 6 HOURS NEEDED FOR PAIN levoFLOXacin (LEVAQUIN) 500 MG Tablet levofloxacin 500 mg tablet Discontinu ed(Med List Clean Up) loperamide (IMODIUM) 2 MG Capsule PLEASE SEE ATTACHED FOR DETAILED DIRECTIONS Discontinu ed(Med List Clean Up) ondansetron (ZOFRAN-ODT) 4 MG TABLET DISPERSIBLE DISSOLVE 1 TABLET (4 MG) UNDER THE TONGUE EVERY 8 HOURS NEEDED FOR NAUSEA AND VOMITING 09/02/19 Discontinu ed(Med List Clean Up) fluticasone-salm eterol (Wixela Inhub) 250-50 MCG/ACT AEROSOL POWDER, BREATH ACTIVATED Inhale 1 puff twice a day by inhalation route. 10/03/19 Discontinu ed(Med List Clean Up) linaclotide (Linzess) 145 MCG Capsule Take 145 mcg by mouth. 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 Nodule of right lung 11/21/2024 History of iron deficiency 11/21/2024 Persistent atrial fibrillation 11/21/2024 Chronic bronchitis 11/21/2024 History of systemic lupus erythematosus (SLE) Encounters Date Type Department Care Team Description 01/16/2025 3:30 PM CDT Telemedicine [facility] [address] [place] [phone] Devorah Li APRN, [place] Bronchitis, chronic with acute exacerbation (HCC) (Primary Dx) Discharge Disposition: Discharged to home or Selfcare 01/16/2025 Nurse Triage [facility] [address] [phone] Marla Davenport RN COPD 01/15/2025 Patient Outreach [facility] [address] [phone] Navigator, Digital Health Social Concerns (Completed SDOHnquestionaire) 01/02/2025 2:[address] [facility] [address] [place] [phone] Wili Solomon MD History of iron deficiency; Splenic vein thrombosis Discharge Disposition: Discharged to home or Selfcare 01/02/2025 2:20 PM CDT Office Visit [facility] [address] [place] [phone] Wili Solomon MD History of iron deficiency (Primary Dx); Splenic vein thrombosis Discharge Disposition: Discharged to home or Selfcare 01/02/2025 Travel 12/31/2024 Results Follow-Up [facility] [address] [place] [phone] Cinthia Noriega APRN, TECHNICIAN SUPPORT ENGINEER MRI ABDOMEN W CONTRAST 12/20/2024 7:00 AM CDT - 12/20/2024 11:59 PM CDT [facility] [address] [place] [address] Cinthia Noriega, CHIROPRACTIC DOCTOR, TECHNICIAN SUPPORT ENGINEER Discharge Disposition: Discharged to home or Selfcare 12/20/2024 6:00 AM CDT - 12/20/2024 6:59 AM CDT [facility] [address] [place] [address] Mervin Kevin MD Discharge Disposition: Discharged to home or Selfcare 12/20/2024 Travel 12/18/2024 Transcribe Orders [facility] [address] [place] [address] Mervin Kevin MD Liver lesion (Primary Dx) 12/17/[address] [facility] Services [address] [place] [address] Cinthia Noriega, CHIROPRACTIC DOCTOR, TECHNICIAN SUPPORT ENGINEER 12/03/2024 1:50 PM CDT - 12/03/2024 11:59 PM CDT Hospital Encounter [facility] [address] [place] [address] Wili Solomon MD Discharge Disposition: Discharged to home or Selfcare 12/03/2024 Travel 11/23/2024 1:48 PM CDT - 11/23/2024 11:59 PM CDT [facility] [address] [place] [address] Provider, Not On File Discharge Disposition: Discharged to home or Selfcare 11/23/2024 1:45 PM CDT - 11/23/2024 1:47 PM CDT Hospital [facility] [address] [place] [address] Provider, Not On File Discharge Disposition: Discharged to home or Selfcare 11/21/2024 9:40 AM CDT [facility] [address] [place] [address] Wili Solomon MD Nodule of right lung [...] often do you attend chur ch or anabaptism services? More than 4 times per year 01/15/2025 Do you belong to any clubs o r organizations such as episcopal groups, unions, fraternal or athletic groups, or [...] medical care, and heating? Very hard 01/15/2025 [place] Citizen [place] of Occupat ional Health - Occupational Stress [...] were you homeless or living in a residential (including now)? No 01/15/2025 [facility] Utilities Answer Date Recorded In the past 12 months has th e electric, gas, oil, or water company threatened to shut off services in your home? Already shut off 01/15/2025 Comments No Sex and Gender Information Value Date Recorded Sex Assigned at Not on file Legal Sex Female 1:23 PM CDT Gender Identity Not on file Sexual Orientation Not on file Last Filed Vital Signs Vital Sign Reading Time Taken Comments Blood Pressure 101/67 01/02/2025 2:24 PM CDT Pulse 73 01/02/2025 2:24 PM CDT Temperature 36.7 C (98.1 F) 01/02/2025 2:24 PM CDT Respiratory Rate 18 01/02/2025 2:24 PM CDT Oxygen Saturation 99% 01/02/2025 2:24 PM CDT Inhaled Oxygen Concentration - - Weight 71.2 kg (157 lb) 01/02/2025 2:24 PM CDT Height 170.2 cm (5' 7) 01/02/2025 2:24 PM CDT Body Mass Index 24.59 01/02/2025 2:24 PM CDT Plan of Treatment Upcoming Encounters Date Type Department Care Team (Late st Contact Info) Description 02/04/2025 2:40 PM CDT [facility] [address] [place] [phone] Wili Solomon MD [address] [place] [address] Discharge Disposition: Discharged to home or Selfcare Health Maintenance Due Date Last Done Comments Human Papillomavirus (HPV) Immunization (1 - 3-dose series) 2005 Hepatitis B Immunization (1 of 3 - 19+ 3-dose series) 2009 HPV/Cotest 2020 Cervical Cancer Screening (CCS) 11/24/2021 Pap Smear 11/24/2021 11/24/2018 Pneumococcal Immunization Combined (2 of 2 - PCV) 09/02/2023 09/01/2022 SARS-COV-2 Immunization ( - season) 2024 10/09/2021, 04/20/2021, 03/30/2021 Influenza Immunization (#1) 02/25/202503/27, 04/27/2018 Respiratory Syncytial Virus (RSV) Immunization (Adult) [...] Patient-Stated? Author Manage My Emotions Patient Goals No Nuria Diego Interventions Community Resource Recommendations Community Resource Services Recommended Domains Addressed Status Status Reason/Outcome Date/Time [facility] [employer] [facility] Emergency Food, Food Pantry Food Insecurity Recommended 01/15/2025 12:07 PM CDT [facility] - Crisis Services Mental Health Services Stress Recommended 01/15/2025 12:04 PM CDT [employer] - Foreclosure Prevention Program Help Hotlines Stress Recommended 01/15/2025 12:04 PM CDT [facility] Authority Housing Insecurity Needs Utilities Recommended 01/15/2025 12:01 PM CDT [facility] Programs (CUP) - The [facility]UB (Housing, Utilities, Basic Needs) Help Find Housing Housing Stability Recommended 01/15/2025 12:01 PM CDT [facility] Help Find Housing, Bioassayist Housing, Residential Housing Housing Stability Recommended 01/15/2025 12:01 PM CDT [facility] Emergency Food Food Insecurity Recommended 01/15/2025 11:59 AM CDT [facility] Food Pantry Food Insecurity Recommended 01/15/2025 11:59 AM CDT [facility] Food Pantry Food Insecurity Recommended 01/15/2025 11:59 AM CDT [facility] - Food Pantry Food Pantry Food Insecurity Recommended 01/15/2025 11:59 AM CDT [facility] - Food Pantry Food Pantry Food Insecurity Recommended 01/15/2025 11:59 AM CDT from Last 12 Months Procedures Procedure Name Priority Date/Time Associated Diagnosis Comments CBC WITH AUTO DIFFERENTIAL Routine 01/02/2025 3:33 PM CDT History of iron deficiency Splenic vein thrombosis LUPUS ANTICOAG PROFILE Routine 3:33 PM CDT History of iron deficiency Splenic vein thrombosis BETA-2 GPI AB IGA, IGG, IGM Routine 01/02/2025 3:33 PM CDT History of iron deficiency Splenic vein thrombosis ANTI CARDIOLIPIN IGG, IGM & IGA Routine 01/02/2025 3:33 PM CDT History of iron deficiency Splenic vein thrombosis ERYTHROCYTE SEDIMENTATION RATE (ESR) Routine 01/02/2025 3:33 PM CDT Splenic vein thrombosis ASHLEY SCREEN MULTIPLEX W/REFLEX ZITA Routine 01/02/2025 3:33 PM CDT Splenic vein thrombosis PROTEIN S ACTIVITY Routine 01/02/2025 3: 33 PM CDT History of iron deficiency Splenic vein thrombosis PROTEIN C ACTIVITY Routine 01/02/2025 3: 33 PM CDT History of iron deficiency Splenic vein thrombosis FACTOR 2 PROTHROMBIN GENE Routine 01/02/2025 3:33 PM CDT History of iron deficiency Splenic vein thrombosis ANTI THROMBIN III ACTIVITY Routine 01/02/2025 3:33 PM CDT History of iron deficiency Splenic vein thrombosis PHOSPHOLIPID PANEL (ACL,B2GP,LUPAP) Routine 01/02/2025 3:33 PM CDT History of iron deficiency Splenic vein thrombosis IRON,TRANSFERN,CALC.TI BC,%SAT Routine 01/02/2025 3:33 PM CDT History of iron deficiency Splenic vein thrombosis FERRITIN Routine 01/02/2025 3:33 PM CDT History of iron deficiency Splenic vein thrombosis COMPLETE BLOOD COUNT (CBC) WITH DIFF Routine 01/02/2025 3:33 PM CDT History of iron deficiency Splenic vein thrombosis FACTOR 5 LEIDEN GENE MUTATION Routine 01/02/2025 3:33 PM CDT History of iron deficiency Splenic vein thrombosis MRI ABDOMEN W CONTRAST Routine 8:53 AM CDT Liver lesion POCT CREATININE Routine 12/20/2024 8:06 AM CDT [...] CDT from Last 3 Months Results * FACTOR 2 PROTHROMBIN GENE (01/02/2025 3:33 PM CDT) PROTHROMBIN GENE Normal (Homozygou s wild-type genotype) Normal (Homozygo us wild-type genotype) [facility] Eye-Q GENEXPERT 01/03/2025 9:[address] [facility] Comment: Sample is negative for the Factor II (Prothrombin) [id number] mutation (i.e., no mutant allele present). Increased risk of thrombophilia can be caused by a variety of genetic and non- genetic factors not screened by this assay. Assay performed by real time PCR, with allele-specific probe. Since genetic variation and other factors can affect the accuracy of direct mutation testing, these results should be interpreted in light of clinical and familial data. Blood Venipuncture / Unknown 01/02/2025 3:33 PM CDT 01/02/2025 3:[address] [facility] - 01/03/2025 9:10 AM CDT Factor 5 normal us Wili Solomon MD IMMUNOLOGY ORDERABLES Fi nal Result [facility] [address] [place] [address], [place] * FACTOR 5 LEIDEN GENE MUTATION (01/02/2025 3:33 PM CDT) FACTOR 5 LEIDEN MUT Normal (Homozygou s wild-type genotype) Normal (Homozygo us wild-type genotype) [facility] CEPImpressto GENEXPERT 01/03/2025 9:[address] [facility] Comment: Sample is negative for the Factor V Leiden [id number] mutation (i.e., no mutant allele present). Increased risk of thrombophilia can be caused by a variety of genetic and non- genetic factors not screened by this assay. Assay performed by real time PCR, with allele-specific probe. Since genetic variation and other factors can affect the accuracy of direct mutation testing, these results should be interpreted in light of clinical and familial data. Blood Venipuncture / Unknown 01/02/2025 3:33 PM CDT 01/02/2025 3:[address] [facility] - 01/03/2025 9:09 AM CDT Factor 2 normal Wili Solomon MD IMMUNOLOGY ORDERABLES Fi nal Result [facility] [address] [place] [address], [place] * IRON,TRANSFERN,CALC.TIBC,%SAT (01/02/2025 3:33 PM CDT) IRON 49 25 - 156 mcg/dL 01/02/2025 4:44 PM CDT [facility] TRANSFERRIN 212 180 - 382 mg/dL 01/02/2025 4:44 PM CDT [facility] TIBC, CALCULATED 265 265 - 497 mcg/dL 01/02/2025 4:44 PM CDT [facility] % SATURATION * 18 15 - 62 % 01/02/2025 4:44 PM CDT [facility] Blood Venipuncture / Unknown 01/02/2025 3:33 PM CDT 01/02/2025 3:33 PM CDT Wili Solomon MD CHEMISTRY ORDERABLES Fin al Result [facility] [address] [place] [address] * (ABNORMAL) LUPUS ANTICOAG PROFILE (01/02/2025 3:33 PM CDT) Pathologist [facility] INR 1.0 0.9 - 1.2 01/04/2025 12:[address] [facility] THROMBIN TIME 16.2 15.1 - 18.5 sec 01/04/2025 12:54 PM CDT [facility] PROTIME-PATIEN T 13.5 11.6 - 14.8 sec 01/04/2025 12:54 PM CDT [facility] APTT-LA 39.1(H) 30.6 - 38.8 sec 01/04/2025 12:[address] [facility] DRVV SCREEN RATIO 1.2 <=1.2 ratio 01/04/2025 12:[address] [facility] Blood Venipuncture / Unknown 01/02/2025 3:33 PM CDT 01/02/2025 3:[address] [facility] - 01/04/2025 12:54 PM CDT No evidence of lupus-like anticoagulant based on results of Lupus sensitive Activated Partial Thromboplastin Time (APTT) and Dilute Geraldo's Viper Venom Time (DRVVT). us Wili Solomon MD HEMATOLOGY ORDERABLES nal Result [facility] [address] [place] [address], * BETA-2 GPI AB IGA, IGG, IGM (01/02/2025 3:33 PM CDT) Pathologist [facility] BETA-2 GLYCOPROTEIN IGA <2.0 <20.0 APL-U/mL 01/02/2025 10:[address] [facility] BETA-2 GLYCOPROTEIN IGG <1.4 <20.0 GPL-U/mL 01/02/2025 10:[address] [facility] BETA-2 GLYCOPROTEIN IGM <1.5 <20.0 MPL-U/mL 01/02/2025 10:[address] [facility] Blood Venipuncture / Unknown 01/02/2025 3:33 PM CDT 01/02/2025 3:[address] [facility] - 01/02/2025 10:53 PM CDT Antibody testing was performed by multiplex flow immunoassay on the Bio[employer]lex platform. us Wili Solomon MD IMMUNOLOGY ORDERABLES Fi nal Result Performing Organization Address City/[facility]/ZIP Co de Phone Number [facility] [address] [place] [address], [place] * ANTI CARDIOLIPIN IGG, IGM & IGA (01/02/2025 3:33 PM CDT) CARDIOLIPIN IGA <2.0 <20.0 APL-U/mL 01/02/2025 10:[address] [facility] CARDIOLIPIN IGG <1.6 <20.0 GPL-U/mL 01/02/2025 10:[address] [facility] CARDIOLIPIN IGM <1.5 <20.0 MPL-U/mL 01/02/2025 10:[address] [facility] Blood Venipuncture / Unknown 01/02/2025 3:33 PM CDT 01/02/2025 3:[address] [facility] - 01/02/2025 10:53 PM CDT Antibody testing was performed by multiplex flow immunoassay on the [employer]lex platform. us Wili Solomon MD IMMUNOLOGY ORDERABLES Fi nal Result [facility] [address] [place] [address], [place] * (ABNORMAL) CBC WITH AUTO DIFFERENTIAL (01/02/2025 3:33 PM CDT) WBC 11.45 4.00 - 12.00 10(3)/mcL 01/02/2025 4:28 PM CDT [facility] RBC 4.76 3.80 - 5.30 10(6)/mcL 01/02/2025 4:28 PM CDT [facility] HEMOGLOBIN (HGB) 13.8 12.0 - 15.8 g/dL 01/02/2025 4:28 PM CDT [facility] HEMATOCRIT (HCT) 42.1 36.0 - 47.0 % 01/02/2025 4:28 PM CDT [facility] MCV 88.4 82.0 - 96.0 fL 01/02/2025 4:28 PM CDT [facility] MCH 29.0 26.0 - 34.0 pg 01/02/2025 4:28 PM CDT [facility] MCHC 32.8 31.0 - 36.0 g/dL 01/02/2025 4:28 PM CDT [facility] PLATELET COUNT 276 140 - 440 10(3)/mcL 01/02/2025 4:28 PM [facility] RDW 12.5 11.8 - 15.5 % 01/02/2025 4:28 PM CDT [facility] MPV 11.3 9.7 - 12.4 fL 01/02/2025 4:28 PM [facility] NEUTROPHILS 76.5(H) 47.0 - 73.0 % 01/02/2025 4:28 PM CDT [facility] LYMPHOCYTES 15.2(L) 18.0 - 42.0 % 01/02/2025 4:28 PM CDT [facility] MONOCYTES 6.6 4.0 - 12.0 % 01/02/2025 4:28 PM CDT [facility] EOSINOPHILS 0.8 0.0 - 5.0 % 01/02/2025 4:28 PM CDT [facility] BASOPHILS 0.4 0.0 - 1.0 % 01/02/2025 4:28 PM CDT [facility] IMMATURE GRANULOCYTE 0.5(H) 0.0 - 0.4 % 01/02/2025 4:28 PM CDT [facility] Comment:Immature Granulocyte s includes Metamyelocytes, Myelocytes, and Promyelocytes. ABSOLUTE NEUTROPHILS 8.76(H) 1.60 - 7.70 10(3)/mcL 01/02/2025 4:28 PM CDT [facility] ABSOLUTE LYMPHOCYTES 1.74 1.30 - 3.20 10(3)/mcL 01/02/2025 4:28 PM CDT [facility] ABSOLUTE MONOCYTES 0.75 0.20 - 1.00 10(3)/mcL 01/02/2025 4:28 PM CDT [facility] ABSOLUTE EOSINOPHIL 0.09 0.00 - 0.40 10(3)/mcL 01/02/2025 4:28 PM CDT [facility] ABSOLUTE BASOPHILS 0.05 0.00 - 0.10 10(3)/[facility] 01/02/2025 4:28 PM CDT [facility] ABSOLUTE IMMATURE GRANULOCYTE 0.06(H) 0.00 - 0.03 10 (3) mcL. 01/02/2025 4:28 PM CDT [facility] NRBC PER 100 WBC 0 01/03/20 4:28 PM CDT [facility] Blood Venipuncture / Unknown 01/02/2025 3:33 PM CDT 01/02/2025 3:33 PM CDT us Wili Solomon MD HEMATOLOGY ORDERABLES Fi nal Result [facility] [address] [place] [address] * ERYTHROCYTE SEDIMENTATION RATE (ESR) (01/02/2025 3:33 PM CDT) ESR (SED RATE, ERYTHROCYTE SEDIMENTATION RATE) 3 <20 mm/h 01/02/2025 4:34 PM CDT [facility] Comment: Patients presenting with increased level of fibrinogen, gamma globulins, or abnormally shaped RBCs could affect the results for the erythrocyte sedimentation rate (ESR). Results should be clinically correlated. Blood Venipuncture / Unknown 01/02/2025 3:33 PM CDT 01/02/2025 3:33 PM CDT Wili Solomon MD HEMATOLOGY ORDERABLES Fi nal Result Performing Organization Address City/[facility] Co de Phone Number [facility] [address] [place] [address] * PROTEIN S ACTIVITY (01/02/2025 3:33 PM CDT) PROTEIN S ACTIVITY 91.0 65 - 129 % 01/04/2025 11:[address] [facility] Blood Venipuncture / Unknown 01/02/2025 3:33 PM CDT 01/02/2025 3:33 PM CDT Wili Solomon MD HEMATOLOGY ORDERABLES Fi nal Result Performing Organization Address [facility] Co de Phone Number [facility] [address] [place] [address], [place] * PROTEIN C ACTIVITY (01/02/2025 3:33 PM CDT) PROTEIN C ACTIVITY 149.0 79 - 175 % 01/04/2025 11:[address] [facility] Blood Venipuncture / Unknown 01/02/2025 3:33 PM CDT 01/02/2025 3:33 PM CDT Wili Solomon MD HEMATOLOGY ORDERABLES Fi nal Result Performing Organization Address City/[facility] Co de Phone Number [facility] [address] [place] [address], [place] * FERRITIN (01/02/2025 3:33 PM CDT) FERRITIN 92 5 - 204 ng/mL 01/02/2025 5:03 PM CDT [facility] Blood Venipuncture / Unknown 01/02/2025 3:33 PM CDT 01/02/2025 3:33 PM CDT Wili Solomon MD CHEMISTRY ORDERABLES Fin al Result Performing Organization Address City/[facility]/ZIP Co de Phone Number [facility] [address] [place] [address] * ANTI THROMBIN III ACTIVITY (01/02/2025 3:33 PM CDT) ANTITHROMBIN III 102 82 - 139 % 01/03/20 10:24 PM CDT [facility] Blood Venipuncture / Unknown 01/02/2025 3:33 PM CDT 01/02/2025 3:33 PM CDT us Wili Solomon MD HEMATOLOGY ORDERABLES Fi nal Result Performing Organization Address [facility] Co de Phone Number [facility] [address] [place] [address], [place] * ASHLEY SCREEN MULTIPLEX W/REFLEX ZITA (01/02/2025 3:33 PM CDT) ASHLEY SCR MULTIPLEX Negative Negative, See comment 01/02/2025 10:[address] [facility] Blood Venipuncture / Unknown 01/02/2025 3:33 PM CDT 01/02/2025 3:[address] [facility] - 01/02/2025 10:53 PM CDT Antibody testing was performed by multiplex flow immunoassay on the [employer] platform. us Wili Solomon MD IMMUNOLOGY ORDERABLES Fi nal Result Performing Organization Address [facility] Co de Phone Number [facility] [address] [place] [address], [place] * MRI ABDOMEN W CONTRAST (12/20/2024 8:53 AM CDT) Anatomical Region Laterality Modality Abdomen N/A Magnetic Resonan ce 12/31/2024 12:3 7 PM CDT Impressions 12/31/2024 12:40 PM CDT IMPRESSION: Normal MR appearance of the liver. No hepatic lesions identified. Narrative 12/31/2024 12:40 PM CDT EXAM DESCRIPTION: MRI ABDOMEN W CONTRAST REASON FOR STUDY: CT chest 12/03/24 showed subtle enhancement right hepatic lobe TECHNIQUE: MRI of the abdomen performed without and with intravenous contrast according to the liver protocol. 3D MRCP sequences were also obtained. All images stored on PACS. CONTRAST TYPE/DOSE: 16mL of GADOBENATE DIMEGLUMINE 529 MG/ML IV SOLN injected via Intravenous COMPARISON: CT chest 12/03/2024 FINDINGS: LIVER: Normal contour. No enhancing masses. No cystic lesions appreciated. Patent hepatic vasculature. ABDOMEN: LOWER CHEST: No effusion. GALLBLADDER: No stones, wall thickening or pericholecystic fluid BILE DUCTS: No intrahepatic or extrahepatic ductal dilatation. SPLEEN: Normal size. No focal lesions. PANCREAS: No masses. No significant calcifications. No adjacent inflammation or peripancreatic fluid collections. Pancreatic duct not dilated. ADRENALS: Normal. KIDNEYS/URINARY TRACT: No solid masses. No cysts. No hydronephrosis or hydroureter. Symmetric enhancement. GI: No visualized abnormality. PERITONEUM: No ascites. RETROPERITONEUM: No mass or adenopathy. VASCULATURE: No abdominal aortic aneurysm. MUSCULOSKELETAL: No acute findings. OTHER: No other abnormality. THIS IS AN ELECTRONICALLY VERIFIED FINAL REPORT 12/31/2024 12:37 PM - Electronically signed by Judd Torrez M.D. AM: AM Report ID: [id number] Reading Location: [id number] Procedure Note Judd Torrez MD - 12/31/2024 EXAM DESCRIPTION: MRI ABDOMEN W CONTRAST REASON FOR STUDY: CT chest 12/03/24 showed subtle enhancement right hepatic lobe TECHNIQUE: MRI of the abdomen performed without and with intravenous contrast according to the liver protocol. 3D MRCP sequences were also obtained. All images stored on PACS. CONTRAST TYPE/DOSE: 16mL of GADOBENATE DIMEGLUMINE 529 MG/ML IV SOLN injected via Intravenous COMPARISON: CT chest 12/03/2024 FINDINGS: LIVER: Normal contour. No enhancing masses. No cystic lesions appreciated. Patent hepatic vasculature. ABDOMEN: LOWER CHEST: No effusion. GALLBLADDER: No stones, wall thickening or pericholecystic fluid BILE DUCTS: No intrahepatic or extrahepatic ductal dilatation. SPLEEN: Normal size. No focal lesions. PANCREAS: No masses. No significant calcifications. No adjacent inflammation or peripancreatic fluid collections. Pancreatic duct not dilated. ADRENALS: Normal. KIDNEYS/URINARY TRACT: No solid masses. No cysts. No hydronephrosis or hydroureter. Symmetric enhancement. GI: No visualized abnormality. PERITONEUM: No ascites. RETROPERITONEUM: No mass or adenopathy. VASCULATURE: No abdominal aortic aneurysm. MUSCULOSKELETAL: No acute findings. OTHER: No other abnormality. THIS IS AN ELECTRONICALLY VERIFIED FINAL REPORT 12/31/2024 12:37 PM - Electronically signed by Judd Torrez M.D. AM: AM Report ID: [id number] Reading Location: [place] [address] IMPRESSION: Normal MR appearance of the liver. No hepatic lesions identified. us Cinthia Norieag APRN, [place] IMG MR ORDERABLES Brit l Result * POCT Creatinine (12/20/2024 8:06 AM CDT) Only the most recent of2 resultswithin the time period is included. CREATININE - POCT 0.8 0.6 - 1.3 mg/dL 12/20/2024 8:08 AM CDT [facility] Blood 12/20/2024 8:06 AM CDT 12/20/2024 8:08 AM CDT us None Provider POINT OF CARE TESTING Final Resu lt [facility] [place] [address] * XR ORBITS FOR FOREIGN BODY (12/20/2024 [...] Addison Villalta M.D. LC: RK Report ID: [id number] Reading Location: [id number] Procedure Note Celeste Villalta MD - 12/20/2024 [...] Addison Villalta M.D. LC: RK Report ID: [id number] Reading Location: [id number] IMPRESSION: Negative study of the orbits. No [...] Tyler Pimentel D.O. AP: AP Report ID: [id number] Reading Location: [id number] Procedure Note Tyler Pimentel DO - 12/14/2024 EXAM DESCRIPTION: CT CHEST [...] Tyler Pimentel D.O. AP: AP Report ID: [id number] Reading Location: [id number] IMPRESSION: 1. The right mainstem bronchus soft [...] 3 Months Insurance MEDICAID [place] Care Teams Cable Installation Technician Relationship Specialty Start Date End Date Mervin Kevin MD [address] [address] PCP - General Family Medicine 11/21/24
--- OUTSIDE RECORDS SUMMARY | 2025-01-17 09:22 | XMS_ITS | Encounter Summary ---
Author Organization [facility] Address [address] [place] [address] Care Team Providers Care Surface Ship Usw Supervisor Name Role Phone Mervin Kevin MD Primary Care Provider [phone] Reason for Referral * Evaluate & Treat (Routine) - Open Specialty Diagnoses / Procedures Referred By Eric rodriguez Referred To Contact Surgery-General Diagnoses Encounter to establish care with new doctor Mass of breast, unspecified laterality Alexa Landers MD [address] [facility] [address] [place] [address] Phone: tel: fax: Brittney Pimentel MD [address] [facility] [address] [place] [address] Phone: tel: fax: Referral ID Status Reason Start Date Expiration Date V isits Requested Visits Authorized [id number] Open Specialty Services Required 01/16/2025 01/16/2026 10 10 * Evaluate & Treat (Routine) - Open Specialty Diagnoses / Procedures Referred By Eric rodriguez Referred To Contact Gastroenterology Diagnoses Encounter to establish care with new doctor Mesenteric venous thrombosis (HCC) Alexa Landers MD [address] [facility] [address] [place] [address] Phone: tel: fax: [facility] [place] [address] [place] [address] [place] [address] Phone: tel: fax: Referral ID Status Reason Start Date Expiration Date V isits Requested Visits Authorized [id number] Open Specialty Services Required 01/16/2025 01/16/2026 10 10 * Evaluate & Treat (Routine) - Open Specialty Diagnoses / Procedures Referred By Eric t Referred To Contact Rheumatology Diagnoses Encounter to establish care with new doctor Systemic lupus erythematosus, unspecified SLE type, unspecified organ involvement status ([facility]) Alexa Landers MD [address] [place] [address] [place] [address] Phone: tel: fax: [facility] - Rheumatology [address] [place] [address] [place] [address] Phone: tel: fax: Referral ID Status Reason Start Date Expiration Date V isits Requested Visits Authorized [id number] Open Specialty Services Required 01/16/2025 01/16/2026 10 10 Scheduling Instructions Reason for referral: Lupus * Evaluate & Treat (Routine) - Open Specialty Diagnoses / Procedures Referred By Contduane rodriguez Referred To Contact Oncology-Medical Diagnoses Encounter to establish care with new doctor Thrombophilia ([facility]) Alexa Landers MD [address] [place] [address] 2L [place] [address] Phone: tel: fax: [facility] - Hematology/Oncology [address] [place] [phone] Phone: tel: fax: Referral ID Status Reason Start Date Expiration Date V isits Requested Visits Authorized [id number] Open Specialty Services Required 01/16/2025 01/16/2026 10 10 Scheduling Instructions Referral reason is thrombophelia Reason for Visit * Reason Comments Establish Care vein thrombosis Encounter Details Date Type Department Care Team (Late st Contact Info) Description 01/16/2025 11:45 AM CDT Office Visit [facility] - Vascular Surgery [address] [place] [address], [place] [address] Alexa Landers MD [facility] DIV [place] [address] Encounter to establish care with new doctor (Primary Dx); Mass of breast, unspecified laterality; Mesenteric venous thrombosis (HCC); Thrombophilia (HCC); Systemic lupus erythematosus, unspecified SLE type, unspecified organ involvement status (HCC) Social History Tobacco Use Types Packs/Day Years [...] PM CDT 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..] Vidal Pastor RN documented in this encounter Patient Instructions * Patient Instructions* Randa Iglesias RN - 01/16/2025 12:53 PM CDT You will be called with the plan of care once Dr. Landers reviews your CT imaging from an outside facility. You will be called to schedule your referrals to hematology, GI, rheumatology, and breast doctor. If you would like to call to schedule your referrals, please call [phone]. 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 Images and records of this CT scan are not able to be found on CareEverywhere. She is currently on Eliquis. Notes she is still having RUQ and epigastric pain from when this was initially diagnosed. Has not had any follow-up imaging since initial diagnosis. Past Medical History: Past Medical History[1] Past Surgical History: Past Surgical History[2] Home Medications: Medications[3] Allergies: Allergies[4] Social History: Social History[5] Family History: Family History[6] Review of Systems No ROS could be obtained due to patient condition Exam Vitals: 01/16/25 1200 BP: 85/53 Pulse: 70 Temp: 98 ??F (36.7 ??C) SpO2: 98% Weight: 73 kg (161 lb) Height: 1.702 m (5' 7) BP 85/53 (BP Location: Left arm, Patient Position: Sitting, BP Cuff Size: Large adult) Pulse 70 Temp 98 ??F (36.7 ??C) (Temporal) Ht 1.702 m (5' 7) Wt 73 kg (161 lb) SpO2 98% Physical Exam: Gen: NAD and A&O x 3 ENT: Normocephalic and EOMI Resp: unlabored breathing on RA CV: RRR Abd: Soft, moderately tender, Non-distended, and Non-peritoneal, TTP to RUQ, no rebound/guarding MSK: Bilateral lower extremities are warm and well-perfused, pulse exam: Present palpable bilateralDP/PT Psych: Appropriate mood and affect Data Recent Labs Component Name 02/10/24 0950 06/29/18 0428 06/28/18 2236 WBC 8.7 20.5* 24.6* HGB 13.1 8.5* 9.4* HCT 39.4 26.1* 28.3* No results for input(s): NA, K, CL, CO2, BUN, CREATININE, GLU, CALCIUM, MAGNESIUM, PHOSPHORUS in the last 43816 hours. No results for input(s): PROT, ALB, TBILI, AST, ALT, ALKPHOS in the last 73744 hours. @LABRCNT(Protime:3,INR:3,PTT:3) Imaging No results found. No results found. Assessment: Yu Sanchez is a 34 year old female with SLE and COPD who presents here today for evaluation of splenic vein thrombosis found on CT at OSH at the end of November. Unfortunately, we could not find imaging for this, so we will request a report from [facility]. Patient is currently being anticoagulated on Eliquis and is being worked up for thrombophilia by her drop hammer operator helper at OSH. Denies symptoms of bleeding. No vascular intervention needed currently. She currently sees many different specialists at several different hospital systems; recommended that she [facility] care at [facility] for greater ease of care. Will also refer to GI specialist for further monitoring of thrombus. Plan: - Request report for CT scan from [facility] - Continue AC with Eliquis - Referrals to GI, hematology, rheumatology and breast doctor - Patient can follow-up PRN Patient seen and discussed with Dr. Alexa Landers. Miley KLINE-S2 01/16/2025 1:07 PM Attending/Teaching Physician Documentation I have seen and examined the patient with the resident, independently reviewed lab and imaging results and I agree with the findings and plan of care as documented by the resident. 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 Irritable bowel syndrome Marijuana abuse Migraine headache Poor dentition Tobacco abuse [2] Past Surgical History: Procedure Laterality Date Section Dilation and Curettage N/A 06/28/2018 N/A; DILATION AND CURETTAGE (D&C) POST ENDOSCOPY, UPPER N/A 10/31/2018 N/A; ESOPHAGOGASTRODUODENOSCOPY (EGD) DIAGNOSTIC NERVE PROCEDURE/SURGERY Right 02/10/2024 Right; DORSAL HAND WOUND EXPLORATION ORAL SURGERY [3] Current Outpatient Medications Medication Sig Accu-Chek Guide test strip 2 times daily acetaminophen (Tylenol) 500 MG tablet Take 1 (one) tablet by mouth every 6 hours as needed for PainMaximum allowable Acetaminophen amount = 4 Grams (4000 mg) / 24 hours. albuterol (PROVENTIL;VENTOLIN) (2.5 MG/3ML) 0.083% nebulizer solution Inhale 2.5 mg by mouth every 4 hours as needed for Shortness of Breath or Wheezing albuterol HFA (PROAIR HFA) 108 (90 BASE) MCG/ACT inhaler Inhale 2 puffs by mouth every 6 hours as needed calcium-vitamin D (OS-KRISTINE 500 + D) 500-200 mg-unit tablet Take 1 (one) tablet by mouth once daily cyclobenzaprine (Flexeril) 10 MG tablet Take 1 (one) tablet by mouth dilTIAZem (Cardizem) 30 MG tablet Take 1 (one) tablet by mouth 2 times daily docusate sodium (Colace) 100 MG capsule Take 1 (one) capsule by mouth once daily (Patient not taking: Reported on 01/16/2025) Eliquis 5 MG tablet Take 1 (one) tablet by mouth 2 times daily escitalopram (Lexapro) 10 MG tablet famotidine (PEPCID) 20 MG tablet Take 1 (one) tablet by mouth 2 times daily ferrous sulfate 325 (65 FE) MG tablet Take 1 (one) tablet by mouth once daily fluconazole (Diflucan) 150 MG tablet Take 1 (one) tablet by mouth once FOR 1 DOSE. fluticasone propionate (Flonase) 50 MCG/ACT nasal spray [place] 2 (two) sprays into the nose once daily fluticasone-salmeterol (Wixela Inhub) 250-50 MCG/ACT inhaler Inhale 1 (one) puff by mouth two timesdaily at 4am and 4pm HYDROcodone-acetaminophen ([place]) 5-325 MG tablet Take 1 (one) tablet by mouth every 6 hours as needed pain Hydrocortisone, Perianal, 1 % CREA APPLY TOPICALLY 1 APPLICATION TO AFFECTED AREA DAILY ipratropium (Atrovent) 0.06 % nasal spray SPRAY 1 SPRAY INTO NOSTRILS 4 TIMES A DAY NEEDED. ketorolac (Toradol) 10 MG tablet TAKE 1 TABLET BY MOUTH EVERY 6 HOURS X5 DAYS Linzess 72 MCG capsule Take 1 (one) capsule by mouth once daily loperamide (Imodium) 2 MG capsule PLEASE SEE ATTACHED FOR DETAILED DIRECTIONS loratadine (CLARITIN) 10 MG tablet Take 1 tablet by mouth once daily metoprolol succinate XL 24hr (Toprol XL) 50 MG tablet Take 1 (one) tablet by mouth 2 times daily ondansetron (Zofran) 4 MG tablet TAKE 1 TABLET BY MOUTH EVERY 8 HOURS NEEDED FOR NAUSEA AND VOMITING FOR 7 DAYS ondansetron, disintegrating, (Zofran ODT) 4 MG tablet Take 1 (one) tablet by mouth every 8 hours asneeded for Nausea/Vomiting Allow tablet to dissolve on the tongue predniSONE (DELTASONE) 10 MG tablet 3 tabs BID x4 days, 2 tabs BID x3 days, 1 tab BID x3 days thenstop sertraline (Zoloft) 50 MG tablet TAKE 1 TABLET BY MOUTH EVERY DAY AFTER A MEAL traMADol (Ultram) 50 MG tablet Take 1 (one) tablet by mouth every 12 hours as needed valACYclovir (VALTREX) 500 MG tablet Take 1 tablet by mouth 2 times daily vitamin D, ergocalciferol, (Drisdol) 1.25 MG (83770 UT) capsule TAKE 1 CAPSULE BY MOUTH ONE TIME PER WEEK No current facility-administered medications for this visit. [4] Allergies Allergen Reactions Nitrofurantoin Anaphylaxis, Urticaria and Rash [5] Social History Socioeconomic History Marital status: Tobacco Use Smoking status: Former Current packs/day: 0.00 Average packs/day: 0.5 packs/day for 14.0 years (7.0 ttl pk-yrs) Types: Cigarettes Start date: 06/28/2007 Quit date: 06/28/2021 Years since quittin.5 Smokeless tobacco: Never Vaping Use Vaping status: Every Day Substance and Sexual Activity Alcohol use: Not Currently Comment: wine/mix drink on special occassions Drug use: Yes Frequency: 7.0 times per week Types: Marijuana Comment: 1x/day for nausea & pain Sexual activity: Yes Partners: Male [6] Family History Problem Relation Name Age of Onset Diabetes - Type 2 Father Diabetes - Type 2 Paternal Grandmother Diabetes - Type 2 Paternal Grandfather documented in this encounter Plan of Treatment Scheduled Referrals Name Type Priority Associated Diagnoses Order Schedule Ref to Hematology - [facility] Outpatient Referral Routine Encounter to establish care with new doctor Thrombophilia (HCC) 1 Occurrences starting 01/16/2025 until 01/16/2026 Ref to Rheumatology [facility] Outpatient Referral Routine Encounter to establish care with new doctor Systemic lupus erythematosus, unspecified SLE type, unspecified organ involvement status (HCC) 1 Occurrences starting 01/16/2025 until 01/16/2026 Ref to GI Gastroenterology - [facility] Outpatient Referral Routine Encounter to establish care with new doctor Mesenteric venous thrombosis (HCC) 1 Occurrences starting 01/16/2025 until 01/16/2026 Ref to General Surgery [facility] Outpatient Referral Routine Encounter to establish care with new doctor Mass of breast, unspecified laterality 1 Occurrences starting 01/16/2025 until 01/16/2026 documented as of this encounter Goals Goal [...] documented as of this encounter Visit Diagnoses Diagnosis Encounter to establish care with new doctor- Primary Mass of breast, unspecified laterality Mesenteric venous thrombosis (HCC) Portal vein thrombosis Thrombophilia (HCC) Other and unspecified coagulation defects Systemic lupus erythematosus, unspecified SLE type, unspecified organ involvement status (HCC) documented in this encounter Care Teams Surface Ship Usw Supervisor Relationship Specialty Start Date End Date Mervin Kevin MD [address] [place] [id number] PCP - General Family Medicine 12/29/17 documented as of this encounter
--- OUTSIDE RECORDS SUMMARY | 2025-01-17 09:22 | XMS_ITS | Clinical Summary ---
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
--- OUTSIDE RECORDS SUMMARY | 2025-01-17 09:22 | XMS_ITS ---
Author Organization [facility] Address [address] [place] [address] Phone Care Team Providers Care Welding Manager Name Role Phone Mervin Kevin MD Primary Care Provider [phone] [place] Chronic Condition Monitoring Status:Enrolled (Active) Start date:01/15/2025 Enrollment date:01/15/2025 Related social drivers of health:Social Connections, Alcohol Use, Tobacco Use, Financial Resource Strain, Stress, Physical Activity,Food Insecurity, Transportation Needs, Housing Stability, Utilities Related service episodes:[facility] Service Episode (Closed) Continued Care and Services Coordination
--- OUTSIDE RECORDS SUMMARY | 2025-01-17 09:22 | XMS_ITS | Encounter Summary ---
Author Organization [facility] Address [address] [facility] [place] [address] Phone Care Team Providers Care Customer Support Consultant Name Role Phone Mervin Kevin MD Primary Care Provider [phone] Reason for Visit * Reason Comments COPD Encounter Details Date Type Department Care Team (Late st Contact Info) Description 01/16/2025 3:30 PM CDT Telemedicine [facility] [address] [place] [id number] Devorah Li, REFRIGERATION BRAZER/SOLDERER, BOOKING POLICE OFFICER [address] [place], [place] [id number] Bronchitis, chronic with acute exacerbation (HCC) (Primary Dx) Discharge Disposition: Discharged to home or Selfcare Social History Tobacco Use Types Packs/Day Years [...] 01/15/2025 How often do you attend chur or holiness services? More than 4 times per year 01/15/2025 Do you belong to any clubs o r organizations such as voodoo groups, unions, fraternal or athletic groups, or [...] medical care, and heating? Very hard 01/15/2025 [facility] Occupat [facility] - Occupational Stress [...] any time in the past 12 m [facility], were you homeless or living in a fci (including now)? No 01/15/2025 [facility] Utilities Answer Date Recorded In the past 12 months has [employer], gas, oil, or water company threatened to shut off services in your home? Already shut off 01/15/2025 Comments No Sex and Gender Information Value Date Recorded Sex Assigned at Not on file Legal Sex Female 1:23 PM CDT Gender Identity Not on file Sexual Orientation Not on file documented as of this encounter Progress Notes * Devorah Li, DENYS, BOOKING POLICE OFFICER - 01/16/2025 3:30 PM CDT Images from the original note were not included. Assessment/Plan: Diagnoses and all orders for this visit: Bronchitis, chronic with acute exacerbation (HCC) - azithromycin (ZITHROMAX) 250 MG Tablet; 2 tab(s) daily for 1 day, then 1 tab(s) daily for days 2-5. - predniSONE (DELTASONE) 20 MG Tablet; Take 2 Tablets by mouth daily for 5 days. Medical Decision Making: Patient with ongoing COPD symptoms that have progressively worsened. Will treat for COPD exacerbation. Prednisone burst and azithromycin ordered. Educated on dx and tx plan. Educated on new medications. Red flags reviewed. F/u with PCP if no improvement noted. Continue digital check ins. Provided education to the patient regarding the importance of maintaining follow ups with their primary care team. Chart not routed as PCP is not known/on file (her file shows no visits with Dr. Kevin) and patient was not asked. Subjective: History of Present Illness: Chief Complaint Patient presents with COPD Video visit link sent to patient's cell and email at 1530. Patient did not show to video appointment - visit transitioned to a telephone visit per protocol. Yu Sanchez, 34 y.o. female, is enrolled in Chronic Condition Remote Patient Monitoring MOISE verified - valid until 11/21/2025. Yu Sanchez is being evaluated for COPD symptoms. Patient is currently on Advair 250-50 1 puff BID and albuterol PRN for COPD control. She states she has had ongoing SOB and productive cough since she was discharged from the hospital on 12/27. 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 Denies any COPD issues while IP. She currently complains of increase in SOB with exertion and increased frequency and severity of cough that is productive of more sputum than her baseline. She notes some wheezing intermittently but denies any change to her baseline wheezing. Denies any fever, chills, night sweats, CP. She has not done nebulizer treatments with her current symptoms. She is using her albuterol inhalerapproximately 2 times a day. This does provide some relief but does not last long per her report. F/u with PCP scheduled at beginning of January. Nursing notes reviewed by this clinician prior to virtual visit. The following portions of the patient's chart were reviewed by a provider in this encounter and updated as appropriate: Allergies and past medical history Requested Number of Results for Past 12 Months Component Units 12/20/24 0806 CREATININE mg/dL 0.8 Review of Systems Constitutional: Negative for activity change, appetite change, chills, diaphoresis, fatigue and fever. HENT: Negative for congestion, ear pain, postnasal drip, rhinorrhea, sinus pressure, sinus pain andsore throat. Respiratory: Positive for cough, shortness of breath (with exertion) and wheezing (no change to baseline). Negative for chest tightness. Cardiovascular: Negative for chest pain and palpitations. Gastrointestinal: Negative for abdominal distention, abdominal pain, constipation, diarrhea, nauseaand vomiting. Musculoskeletal: Negative for myalgias. Neurological: Negative for headaches. Allergies[1] Medications Ordered Prior to Encounter[2] Problem List[3] Objective: Modified physical exam: PHYSICAL EXAM: Physical Exam Vitals reviewed. Constitutional: General: She is not in acute distress. HENT: Head: Normocephalic. Pulmonary: Effort: Pulmonary effort is normal. Comments: Speaking in complete sentences Neurological: Mental Status: She is alert. Psychiatric: Mood and Affect: Mood normal. Behavior: Behavior normal. Judgment: Judgment normal. Patient was assessed via telephone. Patient was unable or unwilling to use video option for the visit. Total time spent on this date ofservice was 11 minutes Patient verbally consented for this service to be performed and billed. This visit was performed when I was physically located at home. The patient was at home. By: Devorah Li, REFRIGERATION BRAZER/SOLDERER, BOOKING POLICE OFFICER [1] Allergies Allergen Reactions Nitrofurantoin Other (see Comments) Other-Environmental Allergen (Not Found In Search) Other (see Comments) Grass, cottonwood [2] Current Outpatient Medications on File Prior to Visit Medication Sig Dispense Refill Accu-Chek Guide Test Strip use to test twice daily Accu-Chek Softclix Lancets Misc Accu-Chek Softclix Lancets acetaminophen (TYLENOL) 500 MG Tablet Take 500 mg by mouth every 4 hours as needed. Advair Diskus 250-50 MCG/ACT AEROSOL POWDER, BREATH ACTIVATED take 1 Puff by inhalation 2 times daily. albuterol (PROVENTIL, VENTOLIN) (2.5 MG/3ML) 0.083% Nebulizer Soln take 2.5 mg by inhalation every 4 hours as needed. albuterol 108 (90 Base) MCG/ACT Aerosol Solution take 1-2 Puffs by inhalation every 4 hours as needed for Wheezing or Cough. apixaban (Eliquis) 5 MG Tablet Take 5 mg by mouth 2 times daily. Blood Glucose Monitoring Suppl (Accu-Chek Guide Me) w/Device Kit Twice daily, more if symptomatic Blood Glucose Monitoring Suppl (Accu-Chek Guide Me) w/Device Kit Twice daily, more if symptomatic dilTIAZem (CARDIZEM) 30 MG Tablet Take 30 mg by mouth 2 times daily. diphenhydrAMINE (BENADRYL) 25 MG Capsule Take 25 mg by mouth every 6 hours as needed for Allergies. ergocalciferol (VITAMIN D) 71176 UNIT Capsule Take 1.25 mg by mouth once a week. escitalopram (LEXAPRO) 10 MG Tablet Take 10 mg by mouth daily. famotidine (PEPCID) 20 MG Tablet Take 20 mg by mouth daily. ferrous sulfate 325 (65 Fe) MG Tablet Take 325 mg by mouth daily. fluticasone (FLONASE) 50 MCG/ACT Suspension 2 Sprays by Nasal route daily. Glucose Blood (Accu-Chek Guide Test) Strip Two times per day, more if symptoms occur Glucose Blood (Accu-Chek Guide Test) Strip Accu-Chek Guide test strips strip Hydrocortisone Acetate 1.12 %(1% Base) Cream 2 times daily as needed. Chest and neck ipratropium (ATROVENT) 0.06 % Solution 1 Bahama by Nasal route daily. linaclotide (Linzess) 145 MCG Capsule Take 145 mcg by mouth. metoprolol Succinate (TOPROL-XL) 50 MG TABLET SR 24 HR Take 50 mg by mouth daily. omeprazole (PriLOSEC) 40 MG CAPSULE DELAYED RELEASE Take 40 mg by mouth daily. ondansetron (ZOFRAN) 4 MG Tablet Take 4 mg by mouth every 8 hours as needed. SUMAtriptan (Imitrex) 25 MG Tablet Take 25 mg by mouth once as needed. Use as directed. May repeat dose in 2 hours if headache recurs. valACYclovir (VALTREX) 500 MG Tablet Take 500 mg by mouth daily. No current facility-administered medications on file prior to visit. [3] Patient Active Problem List Diagnosis Nodule of right lung History of iron deficiency Persistent atrial fibrillation (HCC) Chronic bronchitis (HCC) History of systemic lupus erythematosus (SLE) (HCC) Splenic vein thrombosis documented in this encounter Plan of Treatment Upcoming Encounters Date Type Department Care Team (Late st Contact Info) Description 02/04/2025 2:40 PM CDT [facility] [address] [place] [address] Wili Solomon MD [address] [place] [address] Discharge Disposition: Discharged to home or Selfcare documented as of this encounter Goals Goal Patient Goal Type Associated Problems Recent Progress Patient-Stated? Author Manage My Emotions Patient Goals No Nuria Diego documented as of this encounter Visit Diagnoses Diagnosis Bronchitis, chronic with acute exacerbation (HCC)- Primary Unspecified chronic bronchitis documented in this encounter Care Teams Customer Support Consultant Relationship Specialty Start Date End Date Mervin Kevin MD [address] [address] PCP - General Family Medicine 11/21/24 documented as of this encounter
== END 2025-01-17 09:17 | disposition home or self-care (01) ==
LOC: ANHLAB 09:17
PROVIDERS: PCP Emergency Medicine; Visit Provider Nurse Practitioner Family
DX: R11.2 Nausea with vomiting, unspecified (principal); K21.9 Gastro-esophageal reflux disease without esophagitis; R10.11 Right upper quadrant pain
CPT/HCPCS: 83013

== ENCOUNTER 2025-01-22 10:12 | Outpatient (CLI) | payer MEDICAID, SELFPAY ==
--- NOTE | ~2025-01-22 | MR_ITS ---
MR breast BI wo/w con 01/22/2025 12:15 CDT INDICATION: Nipple discharge. Probable benign right breast masses on recent examination. TECHNIQUE: MRI of the breasts perform using standard protocol pre-and post IV contrast with the follo wing sequences: Axial T2 STIR, axial T1, axial vibrant T1 with fat suppression precontrast and multip hasic postcontrast. 15 cc MultiHance administered intravenously. COMPARISON: Diagnostic bilateral mammogram and ultrasound dated 12/13/2024 FINDINGS: The breasts are composed of dense fibroglandular tissue. There are small bilateral breast c ysts. Right breast: There are no abnormalities on the precontrast sequences. There is marked background par enchymal enhancement. No enhancing lesions following contrast administration. No areas of enhanceme nt meeting threshold criteria on CAD analysis. No evidence of signal abnormalities in the axillary o r internal mammary node distributions. LEFT BREAST: No signal abnormalities on precontrast sequences. There is marked background parenchyma l enhancement. No enhancing lesions following contrast administration. No areas of enhancement niesha ting threshold criteria on CAD analysis. No evidence of signal abnormalities in the axillary or int ernal mammary node distributions. IMPRESSION: 1: Limited study due to degree of background enhancement. No evidence of malignancy. Follow-up MRI ma y be useful for supplementing mammographic evaluation as clinically indicated. Routine yearly screening mammogram and regular clinical breast examination are recommended. BI-RADS CATEGORY 2 - BENIGN FINDINGS Reviewed, dictated and finalized at location B. IMPRESSION: 1: Limited study due to degree of background enhancement. No evidence of malign marti. Follow-up MRI may be useful for supplementing mammographic evaluation as clinically indicated. Routine yearly screening mammogram and regular clinical breast examination are recommended. BI-RADS CATEGORY 2 - BENIGN FINDINGS
--- OUTSIDE RECORDS SUMMARY | 2025-01-22 10:27 | XMS_ITS | Encounter Summary ---
Author Organization [facility] Address [address] [place] [address] Care Team Providers Care Commissioning Agent Name Role Phone Mervin Kevin MD Primary Care Provider [phone] Reason for Visit * Reason Onset Date Comments Referral 01/21/2025 Encounter Details Date Type Department Care Team (Late st Contact Info) Description 01/21/2025 Telephone [facility] - Vascular Surgery [address] [place] [address], [place] [address] Alexa Landers MD [address] [place] [address] [place] [address] Referral Social History Tobacco Use Types Packs/Day Years [...] PM CDT Legal Sex Female 3:34 PM PROFILE SHAPER OPERATOR Gender Identity Female 02/21/2024 3:10 PM CDT Sexual Orientation Not on file documented as of this encounter Functional Status * Is person deaf or have serious hearing difficulty? Answer Date of Assessment Author No 06/28/2018 1:07 PM PROFILE SHAPER OPERATOR Vidal Dallas RN * Is person blind or have [...] Vidal Pastor RN documented in this encounter Miscellaneous Notes * Telephone Encounter - Smiley Smith RN - 01/21/2025 11:58 AM CDT Voicemail received from Lynette from [facility] H[facility]ology[facility]Onc [facility] on this referral. She needs to be referred elsewhere as her insurance is not accepted with this department. She left a message with the patient. Lynette's call back: [phone] Call made to [facility]. No answer. Does not ring. Hangs up. Does not go to [facility]. Call dav Castellano (patient contact, spouse). No answer. Left a brief message to contact the vascular surgery nurse phone number. documented in this encounter Plan of Treatment [...] level for you. Interventions: Mobility General Deanne Arroyo RN Note: Expected end date: 09/24/2021 The goal is to maintain or improve your mobility at the optimum level for you. Interventions: documented as of this encounter Visit Diagnoses Not on filedocumented in this encounter Care Teams Commissioning Agent Relationship Specialty Start Date End Date Mervin Kevin MD [address] [place] [id number] PCP - General Family Medicine 12/29/17 documented as of this encounter
--- OUTSIDE RECORDS SUMMARY | 2025-01-22 10:27 | XMS_ITS | Continuity of Care Document ---
Author Organization [facility] Address [address] [address] Phone Care Team Providers Care Coil Cutter Name Role Phone Pinky Daniels MD Unavailable [...] [facility], [address], [id number], [place] tel:[phone] [facility] No Information [address], [place], [address], [place]. tel:[phone] Referring Provider: Mervin Kevin, [address] [place] [address], [address]. tel:[phone] Est (Level 4) OFFICE/OUTPA TIENT VISIT [facility], [address] [place] [address], [id number], [place] tel:[phone] [facility] allergy symptoms (chief complaint) Recurrent acute suppurative otitis media w/o spontaneous rupture of ear drum of earOther allergic rhinitisSevere persistent asthmaAbnormal results of function studies of other [facility] [address], [place], [address], [place]. tel:[phone] Referring Provider: Mervin Kevin, [address] [place] [address], [address]. tel:[phone] Est (Level 3) OFFICE/OUTPA TIENT VISIT [facility], [address] [place] [address], [id number], [place] tel:[phone] [facility] recurrent infections (chief complaint) Recurrent acute suppurative otitis media w/o spontaneous rupture of ear drum of earOther allergic rhinitisSevere persistent asthmaAbnormal results of function studies of other systems [address], [place], [address], [place]. tel:[phone] Referring Provider: Ruslan Reid, [address] [facility] [address], [place], [address]. tel:[phone] Est (Level 4) OFFICE/OUTPA TIENT VISIT [facility], [address] [place] [address], [id number], [place] tel:[phone] [facility] recurrent infections (chief complaint) Recurrent acute suppurative otitis media w/o spontaneous rupture of ear drum of earSevere persistent asthmaOther allergic rhinitisAbnorma l results of function studies of other systems [address], [place], [address], [place]. tel:[phone] Referring Provider: Ruslan Reid, [address] [facility] [address], [place], [address]. tel:[phone] New (Level 4) OFFICE/OUTPA TIENT VISIT [facility], [address] [place] [address], [id number], [place] tel:[phone] [facility] recurrent infections (chief complaint) Recurrent acute suppurative otitis media w/o spontaneous rupture of ear drum of earSevere persistent asthmaOther allergic rhinitis Fe-0 [address], [place], [address], [place]. tel:[phone] Referring Provider: Ruslan Reid, [address] [facility] [address], [place], [address]. tel:[phone] Family History Family Member Type Diagnosis Age At Onset Paternal aunt Problem rheumatoid arthritis Father Problem Allergic rhinitis Brother Problem Asthma Paternal aunt Problem Lupus erythematosus Sister Problem Asthma Paternal grandmother Problem Asthma Payers Payer name Insurance type Covered green party ID Authoriza timunir(s) [facility] [id number] Social History Type Description Quantity Date Captured Comments Alcohol Use Details Unknown Caffeine Use Details Unknown Tobacco Use Status No Information Smoking Status No Information Sex Female Chief Complaint And Reason For Visit No Information Reason For Referral Reason For Referral No Information Plan Of Treatment Date Type Action Status Future Order: Lab Order S. Pneum onia-23 Serotypes (90235), Sent on: Sent Future Order: Lab Order CBC With Diff (63 [id number]), Sent on: Sent Future Order: Lab Order ESR (809), Sent o n: Sent Future Order: Lab Order CRP ([id number]), Sent on: Sent Future Order: Lab Order Comprehe nsive Metabolic Panel ([id number]), Sent on: Sent Future Order: Lab Order CBC With Differential ([id number]), Sent on: Sent Future Order: Lab Order Compleme nt Total (CH50) ([id number]), Sent on: Sent Future Order: Lab Order Immunogl obulins A/E/G/M, Serum ([id number]), Sent on: Sent Future Order: Lab Order Mannose Binding Lectin ([id number]), Sent on: Sent Future Order: Lab Order Strep Pn eumo 23 ([id number]), Sent on: Sent Future Order: Lab Order T- and B -Lymphocyte and Natural Killer Cell Profile ([id number]), Sent on: Sent Future Order: Lab Order Tetanus/ Diphtheria Antibody Profile ([id number]), Sent on: Sent History Of Present Illness [...] protective(She had Pneumovax on 09/02/22)08/12/22IgIgA: 126IgM: 79IgE: 955MJ31: 58AH50: (deferred)Anti-Spn 23: decreased 02/16 = 65% protectiveAnti-Diphtheria: 0.1 (protective)Anti-Tetanus: 1.17 (protective)AEC: 215AANC: 16,641Flow CytometryCD3+: 56% (L), 1612 (wnl)CD3+CD4+: 35%, 0235FT7+CD8+: 26%, 772CD4/CD8 Ratio: 1.33CD16+CD56+: 32% (H), 912 (H)CD19+: 10%, (poor scan quality, best interpretation listed)IgG 995*IgG1 594*IgG2 270*IgG3 74*IgG4 74Environmental Immunocaps: +HDM, cockroach, grass, trees, weeds other than ragweed with total IgE 306Y7QH Phenotype: PI*MMTB Quant Gold: negativeHRCT Chest on [...] are planning a colonoscopy future.Data08/12/22IgIgA: 126IgM: 79IgE: 216FU24: 58AH50: (deferred)Anti-Spn 23: decreased 02/16 = 65% protectiveAnti-Diphtheria: 0.1 (protective)Anti-Tetanus: 1.17 (protective)AEC: 215AANC: 16,641Flow CytometryCD3+: 56% (L), 1612 (wnl)CD3+CD4+: 35%, 2008YQ1+CD8+: 26%, 772CD4/CD8 Ratio: 1.33CD16+CD56+: 32% (H), 912 (H)CD19+: 10%, (poor scan quality, best interpretation listed)IgG 995*IgG1 594*IgG2 270*IgG3 74*IgG4 74Environmental Immunocaps: +HDM, cockroach, grass, trees, weeds other than ragweed with total IgE 066L4LE Phenotype: MMTB Quant Gold: negativeHRCT Chest on [...] will see hematology next month.Data08/12/22IgIgA: 126IgM: 79IgE: 924KH52: 58AH50: (deferred)Anti-Spn 23: decreased 02/16 = 65% protectiveAnti-Diphtheria: 0.1 (protective)Anti-Tetanus: 1.17 (protective)AEC: 215AANC: 16,641Flow CytometryCD3+: 56% (L), 1612 (wnl)CD3+CD4+: 35%, 8690MX2+CD8+: 26%, 772CD4/CD8 Ratio: 1.33CD16+CD56+: 32% (H), 912 (H)CD19+: 10%, (poor scan quality, best interpretation listed)IgG 995*IgG1 594*IgG2 270*IgG3 74*IgG4 74Environmental Immunocaps: +HDM, cockroach, grass, trees, weeds other than ragweed with total IgE 261T3DI Phenotype: MMTB Quant Gold: negativeHRCT Chest on [...] weeds other than ragweed with total IgE 478H4VD Phenotype: MMTB Quant Gold: negativeHRCT Chest on [...]
--- OUTSIDE RECORDS SUMMARY | 2025-01-22 10:27 | XMS_ITS | Referral Summary ---
Author Organization [facility] Address [address] [place] [address] Care Team Providers Care Customer Services Supervisor Name Role Phone Mervin Kevin MD Primary Care Provider [phone] Allergies Active Allergy Reactions Criticality Noted Date Comments Nitrofurantoin Anaphylaxis High 12/29/2017 Social History Tobacco Use Types Packs/Day Years Used Date Smoking Tobacco: Every Day Cigarettes Smokeless Tobacco: Never Personal Safety Answer Date Recorded Getting School Help Needed Not on file 08/21 Comments No Sex and Gender Information Value Date Recorded Sex Assigned at Not on file Legal 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
--- OUTSIDE RECORDS SUMMARY | 2025-01-22 10:27 | XMS_ITS | Clinical Summary ---
Author Organization [facility] Address [address] [place] [address] Phone Care Team Providers Care Solutions Manager Name Role Phone Mervin Kevin MD Primary Care Provider [phone] Allergies Active Allergy Reactions Criticality Noted Date Comments Nitrofurantoin Other (see Comments) High 10/23/2021 Other-Environmental Allergen (Not Found In Search) Other (see Comments) 01/16/2025 Grass, cottonwood Medications fluticasone (FLONASE) 50 MCG/ACT Suspension 2 Sprays by Nasal route daily. Active ergocalciferol (VITAMIN D) 58940 UNIT Capsule Take 1.25 mg by mouth [...] Active ipratropium (ATROVENT) 0.06 % Solution 1 [place] by Nasal route daily. 07/15/19 23 Active [...] in 2 hours if headache recurs. Active albuterol 108 (90 Base) MCG/ACT Aerosol Solution take 1-2 Puffs by inhalation every 4 hours as needed for Wheezing. 12/30/19 18 025 Discontinu ed(Duplica te Order) linaCLOtide (Linzess) 72 MCG Capsule Take 72 mcg by mouth daily. 025 Discontinu ed(Contact Move - Error) Eliquis 5 MG Tablet Take 5 mg by mouth 2 times daily. 12/29/19 Discontinu ed(Solfo te Order) Accu-Chek Guide Test Strip use [...] Capsule Take 145 mcg by mouth. 09/18/19 azithromycin (ZITHROMAX) 250 MG TabletIndication s:Bronchitis, chronic with acute exacerbation (HCC) 2 tab(s) daily for 1 day, then 1 tab(s) daily for days 2-5. 6 Tablet 01/17/20 25 025 predniSONE (DELTASONE) 20 MG TabletIndication s:Bronchitis, chronic with acute exacerbation (HCC) Take 2 Tablets by mouth daily for 5 days. 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 Nodule of right lung 11/21/2024 History of iron deficiency 11/21/2024 Persistent atrial fibrillation 11/21/2024 Chronic bronchitis 11/21/2024 History of systemic lupus erythematosus (SLE) Encounters Date Type Department Care Team Description 01/16/2025 3:30 PM CDT Telemedicine [facility] [address] [place] [phone] Devorah Li APRN, [place] Bronchitis, chronic with acute exacerbation (HCC) (Primary Dx) Discharge Disposition: Discharged to home or Selfcare 01/16/2025 Nurse Triage [facility] [address] [phone] Marla Davenport RN COPD 01/15/2025 Patient Outreach [facility] [address] [phone] Navigator, Digital Health Social Concerns (Completed SDOHnquestionaire) 01/02/2025 2:40 PM CDT Lab [facility] Oncology Services [address] [place] [phone] Wili Solomon MD History of iron deficiency; Splenic vein thrombosis Discharge Disposition: Discharged to home or Selfcare 01/02/2025 2:20 PM CDT Office Visit [facility] Oncology Services [address] [place] [phone] Wili Solomon MD History of iron deficiency (Primary Dx); Splenic vein thrombosis Discharge Disposition: Discharged to home or Selfcare 01/02/2025 Travel 12/31/2024 Results Follow-Up [facility] Oncologists [address] [place] [phone] Cinthia Noriega APRN, SEO EXECUTIVE MRI ABDOMEN W CONTRAST 12/20/2024 7:00 AM CDT - 12/20/2024 11:59 PM CDT [facility] [address] [place] [address] Cinthia Noriega, SHUTTLE HAND, SEO EXECUTIVE Discharge Disposition: Discharged to home or Selfcare 12/20/2024 6:00 AM CDT - 12/20/2024 6:59 AM CDT [facility] [address] [place] [address] Mervin Kevin MD Discharge Disposition: Discharged to home or Selfcare 12/20/2024 Travel 12/18/2024 Transcribe Orders [facility] [address] [place] [address] Mervin Kevin MD Liver lesion (Primary Dx) 12/17/2024 Telephone [facility] Oncology Services [address] [place] [address] Cinthia Noriega, SHUTTLE HAND, SEO EXECUTIVE 12/03/2024 1:50 PM CDT - 12/03/2024 11:59 PM CDT Hospital Encounter [facility] [address] [place] [address] Wili Solomon MD Discharge Disposition: Discharged to home or Selfcare 12/03/2024 Travel 11/23/2024 1:48 PM CDT - 11/23/2024 11:59 PM CDT [facility] [address] [place] [address] Provider, Not On File Discharge Disposition: Discharged to home or Selfcare 11/23/2024 1:45 PM CDT - 11/23/2024 1:47 PM CDT [facility] [address] [place] [address] Provider, Not On File Discharge Disposition: Discharged to home or Selfcare 11/21/2024 9:40 AM CDT [facility] [address] [place] [address] Wili Solomon MD Nodule of [...] often do you attend chur ch or uatsdin services? More than 4 times per year 01/15/2025 Do you belong to any clubs o r organizations such as restorationist groups, unions, fraternal or athletic groups, or [...] medical care, and heating? Very hard 01/15/2025 [place] of Occupat ional [facility] - Occupational Stress Questionnaire Answer Date Recorded [...] any time in the past 12 m [facility], were you homeless or living in a mcfp (including now)? No 01/15/2025 [place] Utilities Answer Date Recorded In the past [...] Care Team (Late st Contact Info) Description 01/23/2025 8:40 AM CDT Telemedicine [facility] [address] [place] [address] 02/04/2025 2:40 PM CDT [facility] [address] [place] [address] Wili Solomon MD [address] [place] [address] Discharge Disposition: Discharged to home or Selfcare 03/19/2025 10:00 AM CDT [facility] [address] [place] [address] Cinthia Noriega, SHUTTLE HAND, SEO EXECUTIVE [address] [place] [address] Discharge Disposition: Discharged to home or Selfcare Health Maintenance Due Date Last Done Comments Human Papillomavirus (HPV) Immunization (1 - 3-dose series) 2005 Hepatitis B Immunization (1 of 3 - 19+ 3-dose series) 2009 HPV/Cotest 2020 Cervical Cancer Screening (CCS) 11/24/2021 Pap Smear 11/24/2021 11/24/2018 Pneumococcal Immunization Combined (2 of 2 - PCV) 09/02/2023 09/01/2022 SARS-COV-2 Immunization ( season) 2024 10/09/2021, 04/20/2021, 03/30/2021 Influenza Immunization [...] PM CDT [facility] - Crisis Services Mental Health Services Stress Recommended 01/15/2025 12:04 PM CDT [employer] - Foreclosure Prevention Program Help Hotlines Stress Recommended 01/15/2025 12:04 PM CDT [place] [facility] Housing Insecurity Needs Utilities Recommended 01/15/2025 12:01 PM CDT [facility] ([facility]) - The [facility] (Housing, Utilities, Basic Needs) Help Find Housing Housing Stability Recommended 01/15/2025 12:01 PM CDT [facility] Help Find Housing, Long-Term Housing, Residential Housing Housing Stability Recommended 01/15/2025 12:01 PM CDT [facility] Emergency Food Food Insecurity Recommended 01/15/2025 11:59 AM CDT [facility] Food Pantry Food Insecurity Recommended 01/15/2025 11:59 AM CDT [facility] Food Pantry Food Insecurity Recommended 01/15/2025 11:59 AM CDT [facility] [employer] - Food Pantry Food Pantry Food Insecurity Recommended 01/15/2025 11:59 AM CDT [employer] - Food Pantry Food Pantry Food [...] wild-type genotype) Normal (Homozygo us wild-type genotype) [facility] CEPHEID GENEXPERT 01/03/2025 9:10 AM CDT [facility] Comment: Sample is negative for the Factor II (Prothrombin) [id number] mutation (i.e., no mutant allele present). Increased [...] PM CDT 01/02/2025 3:33 PM CDT Narrative [facility] - 01/03/2025 9:10 AM CDT Factor 5 normal Wili Solomon MD IMMUNOLOGY ORDERABLES Fi nal Result Performing Organization Address City/[facility]/ZIP Co de Phone Number [facility] [address] [place] [address], [place] * FACTOR 5 LEIDEN GENE MUTATION (01/02/2025 3:33 PM CDT) FACTOR 5 LEIDEN MUT Normal (Homozygou s wild-type genotype) Normal (Homozygo us wild-type genotype) [facility] CEP[facility] GENEXPERT 01/03/2025 9:09 AM CDT [facility] Comment: Sample is negative for the Factor V Leiden [id number] mutation (i.e., no mutant allele present). Increased [...] PM CDT 01/02/2025 3:33 PM CDT Narrative [facility] - 01/03/2025 9:09 AM CDT Factor 2 normal Wili Solomon MD IMMUNOLOGY ORDERABLES Fi nal Result Performing Organization Address [facility] Co de Phone Number [facility] [address] [place] [address], [place] * IRON,TRANSFERN,CALC.TIBC,%SAT (01/02/2025 3:33 PM CDT) IRON 49 25 - 156 mcg/dL 01/02/2025 4:44 PM CDT [facility] TRANSFERRIN 212 180 - 382 mg/dL 01/02/2025 4:44 PM CDT [facility] TIBC, CALCULATED 265 265 - 497 mcg/dL 01/02/2025 4:44 PM CDT [facility] % SATURATION * 18 15 - 62 % 01/02/2025 4:44 PM CDT [facility] Blood Venipuncture / Unknown 01/02/2025 3:33 PM CDT 01/02/2025 3:33 PM CDT Wili Solomon MD CHEMISTRY ORDERABLES Fin al Result Performing Organization Address City/[facility]/ZIP Co de Phone Number [facility] [address] [place] [address] * (ABNORMAL) LUPUS ANTICOAG PROFILE (01/02/2025 3:33 PM CDT) INR 1.0 0.9 - 1.2 01/04/2025 12:54 PM CDT [facility] THROMBIN TIME 16.2 15.1 - 18.5 sec 01/04/2025 12:54 PM CDT [facility] PROTIME-PATIEN T 13.5 11.6 - 14.8 sec 01/04/2025 12:54 PM CDT [facility] APTT-LA 39.1(H) 30.6 - 38.8 sec 01/04/2025 12:54 PM CDT [facility] DRVV SCREEN RATIO 1.2 <=1.2 ratio 01/04/2025 12:54 PM CDT [facility] Blood Venipuncture / Unknown 01/02/2025 3:33 PM CDT 01/02/2025 3:33 PM CDT Narrative [facility] - 01/04/2025 12:54 PM CDT No evidence of lupus-like anticoagulant based on results of Lupus sensitive Activated Partial Thromboplastin Time (APTT) and Dilute Geraldo's Viper Venom Time (DRVVT). Wili Solomon MD HEMATOLOGY ORDERABLES Fi nal Result Performing Organization Address City/[facility]/ZIP Co de Phone Number [facility] [address] [place] [address], [place] * BETA-2 GPI AB IGA, IGG, IGM (01/02/2025 3:33 PM CDT) BETA-2 GLYCOPROTEIN IGA <2.0 <20.0 APL-U/mL 01/02/2025 10:53 PM CDT [facility] BETA-2 GLYCOPROTEIN IGG <1.4 <20.0 GPL-U/mL 01/02/2025 10:53 PM CDT [facility] BETA-2 GLYCOPROTEIN IGM <1.5 <20.0 MPL-U/mL 01/02/2025 10:53 PM CDT [facility] Blood Venipuncture / Unknown 01/02/2025 3:33 PM CDT 01/02/2025 3:33 PM CDT Narrative [facility] - 01/02/2025 10:53 PM CDT Antibody testing was performed by multiplex flow immunoassay on the BioPlex platform. us Wili Solomon MD IMMUNOLOGY ORDERABLES Fi nal Result [facility] [address] [place] [id number], [place] * ANTI CARDIOLIPIN IGG, IGM & IGA (01/02/2025 3:33 PM CDT) CARDIOLIPIN IGA <2.0 <20.0 APL-U/mL 01/02/2025 10:53 PM CDT [facility] CARDIOLIPIN IGG <1.6 <20.0 GPL-U/mL 01/02/2025 10:53 PM CDT [facility] CARDIOLIPIN IGM <1.5 <20.0 MPL-U/mL 01/02/2025 10:53 PM CDT [facility] Blood Venipuncture / Unknown 01/02/2025 3:33 PM CDT 01/02/2025 3:33 PM CDT Narrative [facility] - 01/02/2025 10:53 PM CDT Antibody testing was performed by multiplex flow immunoassay on the ReDoc Softwarelex platform. us Wili Solomon MD IMMUNOLOGY ORDERABLES Fi nal Result [facility] [address] [place] [address], * (ABNORMAL) CBC WITH AUTO DIFFERENTIAL (01/02/2025 3:33 PM CDT) WBC 11.45 4.00 - 12.00 10(3)/mcL 01/02/2025 4:28 PM CDT [facility] RBC 4.76 3.80 - 5.30 10(6)/mcL 01/02/2025 4:28 PM CDT [facility] HEMOGLOBIN (HGB) 13.8 12.0 - 15.8 g/dL 01/02/2025 4:28 PM CDT [facility] HEMATOCRIT (HCT) 42.1 36.0 - 47.0 % 01/02/2025 4:28 PM CDT [facility] MCV 88.4 82.0 - 96.0 fL 01/02/2025 4:28 PM CDT [facility] MCH 29.0 26.0 - 34.0 pg 01/02/2025 4:28 PM CDT [facility] MCHC 32.8 31.0 - 36.0 g/dL 01/02/2025 4:28 PM CDT [facility] PLATELET COUNT 276 140 - 440 10(3)/mcL 01/02/2025 4:28 PM CDT [facility] RDW 12.5 11.8 - 15.5 % 01/02/2025 4:28 PM CDT [facility] MPV 11.3 9.7 - 12.4 fL 01/02/2025 4:28 PM CDT [facility] NEUTROPHILS 76.5(H) 47.0 - 73.0 % 01/02/2025 4:28 PM CDT [facility] LYMPHOCYTES 15.2(L) 18.0 - 42.0 % 01/02/2025 4:28 PM CDT [facility] MONOCYTES 6.6 4.0 - 12.0 % 01/02/2025 4:28 PM CDT [facility] EOSINOPHILS 0.8 0.0 - 5.0 % 01/02/2025 4:28 PM CDT [facility] BASOPHILS 0.4 0.0 - 1.0 % 01/02/2025 4:28 PM CDT [facility] IMMATURE GRANULOCYTE 0.5(H) 0.0 - 0.4 % 01/02/2025 4:28 PM CDT [facility] Comment:Immature Granulocyte s includes Metamyelocytes, Myelocytes, and Promyelocytes. ABSOLUTE NEUTROPHILS 8.76(H) 1.60 - 7.70 10(3)/mcL 01/02/2025 4:28 PM CDT [facility] ABSOLUTE LYMPHOCYTES 1.74 1.30 - 3.20 10(3)/mcL 01/02/2025 4:28 PM CDT [facility] ABSOLUTE MONOCYTES 0.75 0.20 - 1.00 10(3)/[facility] 01/02/2025 4:28 PM CDT [facility] ABSOLUTE EOSINOPHIL 0.09 0.00 - 0.40 10(3)/[facility] 01/02/2025 4:28 PM CDT [facility] ABSOLUTE BASOPHILS 0.05 0.00 - 0.10 10(3)/[facility] 01/02/2025 4:28 PM CDT [facility] ABSOLUTE IMMATURE GRANULOCYTE 0.06(H) 0.00 - 0.03 10 (3) mcL. 01/02/2025 4:28 PM CDT [facility] NRBC PER 100 WBC 0 01/03/20 4:28 PM CDT [facility] Blood Venipuncture / Unknown 01/02/2025 3:33 PM CDT 01/02/2025 3:33 PM CDT us Wili Solomon MD HEMATOLOGY ORDERABLES Fi nal Result [facility] [address] [place] [address] * ERYTHROCYTE SEDIMENTATION RATE (ESR) (01/02/2025 3:33 PM CDT) ESR (SED RATE, ERYTHROCYTE SEDIMENTATION RATE) 3 <20 mm/h 01/02/2025 4:34 PM CDT [facility] Comment: Patients presenting with increased level of fibrinogen, gamma globulins, or abnormally shaped RBCs could affect the results for the erythrocyte sedimentation rate (ESR). Results should be clinically correlated. Blood Venipuncture / Unknown 01/02/2025 3:33 PM CDT 01/02/2025 3:33 PM CDT us Wili Solomon MD HEMATOLOGY ORDERABLES Fi nal Result Performing Organization Address City/[facility]/ZIP Co de Phone Number [facility] [address] [place] [address] * PROTEIN S ACTIVITY (01/02/2025 3:33 PM CDT) PROTEIN S ACTIVITY 91.0 65 - 129 % 01/04/2025 11:16 AM CDT [facility] Blood Venipuncture / Unknown 01/02/2025 3:33 PM CDT 01/02/2025 3:33 PM CDT us Wili Solomon MD HEMATOLOGY ORDERABLES Fi nal Result [facility] [address] [place] [address], [place] * PROTEIN C ACTIVITY (01/02/2025 3:33 PM CDT) PROTEIN C ACTIVITY 149.0 79 - 175 % 01/04/2025 11:17 AM CDT [facility] Blood Venipuncture / Unknown 01/02/2025 3:33 PM CDT 01/02/2025 3:33 PM CDT Wili Solomon MD HEMATOLOGY ORDERABLES Fi nal Result Performing Organization Address City/[facility]/ZIP Co de Phone Number [facility] [address] [place] [address], [place] * FERRITIN (01/02/2025 3:33 PM CDT) FERRITIN 92 5 - 204 ng/mL 01/02/2025 5:03 PM CDT [facility] Blood Venipuncture / Unknown 01/02/2025 3:33 PM CDT 01/02/2025 3:33 PM CDT Wili Solomon MD CHEMISTRY ORDERABLES Fin al Result Performing Organization Address City/[facility] Co de Phone Number [facility] [address] [place] [address] * ANTI THROMBIN III ACTIVITY (01/02/2025 3:33 PM CDT) ANTITHROMBIN III 102 82 - 139 % 01/03/20 25 10:24 PM CDT [facility] Blood Venipuncture / Unknown 01/02/2025 3:33 PM CDT 01/02/2025 3:33 PM CDT Wili Solomon MD HEMATOLOGY ORDERABLES Fi nal Result Performing Organization Address City/[facility]/ZIP Co de Phone Number [facility] [address] [place] [address], [place] * ASHLEY SCREEN MULTIPLEX W/REFLEX ZITA (01/02/2025 3:33 PM CDT) ASHLEY SCR MULTIPLEX Negative Negative, See comment 01/02/2025 10:53 PM CDT [facility] Blood Venipuncture / Unknown 01/02/2025 3:33 PM CDT 01/02/2025 3:33 PM CDT Narrative [facility] - 01/02/2025 10:53 PM CDT Antibody testing was performed by multiplex flow immunoassay on the Gengo platform. us Wili Solomon MD IMMUNOLOGY ORDERABLES Fi nal Result [facility] [address] [place] [address], [place] * MRI ABDOMEN W CONTRAST (12/20/2024 [...] Judd Torrez M.D. AM: AM Report ID: [id number] Reading Location: [id number] Procedure Note Judd Torrez MD - 12/31/2024 [...] Judd Torrez M.D. AM: AM Report ID: [id number] Reading Location: [id number] IMPRESSION: Normal MR appearance of the liver. No hepatic lesions identified. us Cinthia Noriega APRN, SEO EXECUTIVE IMG MR ORDERABLES Brit l Result * POCT Creatinine (12/20/2024 8:06 AM CDT) Only the most recent of2 resultswithin the time period is included. CREATININE - POCT 0.8 0.6 - 1.3 mg/dL 12/20/2024 8:08 AM CDT [facility] Blood 12/20/2024 8:06 AM CDT 12/20/2024 8:08 AM CDT us None Provider POINT OF CARE TESTING Final Resu lt [facility] [address] [place] [address] * XR ORBITS FOR FOREIGN BODY (12/20/2024 [...] Addison Villalta M.D. LC: RK Report ID: [id number] Reading Location: [id number] Procedure Note Celeset Villalta MD - 12/20/2024 EXAM DESCRIPTION: XR [...] Addison Villalta M.D. LC: RK Report ID: [id number] Reading Location: [id number] IMPRESSION: Negative study of the orbits. No [...] Tyler Pimentel D.O. AP: AP Report ID: [id number] Reading Location: [place] [address] Procedure Note Tyler Pimentel DO - 12/14/2024 [...] Tyler Pimentel D.O. AP: AP Report ID: [id number] Reading Location: [id number] IMPRESSION: 1. The right mainstem bronchus soft [...] could be obtained. us Wili Solomon MD IM CT ORDERABLES Final Result * CT REFERENCE IMAGES FOR IMAGE IMPORT (11/23/2024 1:48 PM CDT) Only the most recent of2 resultswithin the time period is included. us Not On File Provider IM CT ORDERABLES Final Res ult from Last 3 Months Insurance [place]ICAID [place] Care Teams Solutions Manager Relationship Specialty Start Date End Date Mervin Kevin MD [address] [place] [id number] PCP - General Family Medicine 11/21/24
--- OUTSIDE RECORDS SUMMARY | 2025-01-22 10:27 | XMS_ITS | Clinical Summary ---
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
--- OUTSIDE RECORDS SUMMARY | 2025-01-22 10:27 | XMS_ITS | Clinical Summary ---
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 Gender Identity Not on file Sexual Orientation Not on file Last Filed Vital Signs Vital Sign Reading Time Taken Comments Blood Pressure 111/67 07/29/2017 9:58 AM RUBY ON RAILS WEB DEVELOPER Pulse 72 07/29/2017 9:58 AM RUBY ON RAILS WEB DEVELOPER Temperature - - Respiratory Rate - - Oxygen Saturation - - Inhaled Oxygen Concentration - - Weight 68 kg (150 lb) 07/29/2017 9:58 AM RUBY ON RAILS WEB DEVELOPER Height 170.2 cm (5' 7) 07/29/2017 9:58 AM RUBY ON RAILS WEB DEVELOPER Body Mass Index 23.49 07/29/2017 9:58 AM RUBY ON RAILS WEB DEVELOPER Plan of Treatment Health Maintenance Due Date [...] to complete this topic Insurance Care Teams Laborer Cutting Tool Relationship Specialty Start Date End Date Mervin Kevin MD [address] [address] PCP - General FAMILY PRACTICE 06/30/17
--- OUTSIDE RECORDS SUMMARY | 2025-01-22 10:27 | XMS_ITS | Clinical Summary ---
Author Organization [facility] Address [address] [facility] [place] [address] Care Team Providers Care Air Quality Specialist Name Role Phone Mervin Kevin MD Primary Care Provider [phone] Source Comments [facility],non-owned Affiliates and Associated Physician Practices is amultiple site organization consisting of ambulatory clinics and hospital sitesin [place], [place], [place] and [place]. This disclosure is being madepursuant to the Care Everywhere program and may not contain all information available regarding this patient. Last updated 18.[facility] Allergies Active Allergy Reactions Criticality Noted Date [...] fluticasone propionate (Flonase) 50 MCG/ACT nasal spray [place] 2 (two) sprays into the nose once daily Active Accu-Chek Guide test strip 2 times daily 09/25/19 25 Active HYDROcodone-ac etaminophen ([place]) 5-325 MG tablet Take 1 (one) tablet [...] vitamin D, ergocalciferol , (Drisdol) 1.25 MG (34125 UT) capsule TAKE 1 CAPSULE BY MOUTH [...] Sanchez was screened for depression using the [place] Depression Scale (EPDS) at her [facility] initial evaluation on 03/06/2018. [...] symptoms. Recommend 3rd trimester neonatology consult at [facility] due to psychiatric medications, if continued [...] from the original note were not included. [facility] PATIENT--PLEASE CALL [phone] (ex 2) IF TRIAGED OR ADMITTED Care Provider: Dr. Erasmo Wood [facility] Care [place] consultants involved: RN-Rosana/Jayce; MFM-Vitor; Cleft Team-Kamila Mojica; Cardiology-Vitor Diagnosis: Cleft Lip & Palate follow up: per Cleft Team consult 10: Family will call to schedule a visit with the cleft palate team after the baby is born. 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 Order can be placed by genetic counselor in baby's chart at that time. Please request Genetics consult postnatally if clinically indicated by calling the Genetics office at [phone] prior to ordering genetic studies. 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 Interventions: Mobility General No Deanne Rodriguez, MALKA Note: Expected end date: 09/24/2021 The [...] Reactive Non Reactive 11/24/2018 3:32 PM CDT [facility] Blood BLOOD SPECIMEN / Unknown Venipuncture / Unknown 11/24/2018 2:32 PM CDT 11/24/2018 2:35 PM CDT Narrative [facility] - 11/24/2018 3:32 PM CDT No Laboratory evidence of HIV infection. Alondra Saxena DO LAB - CHEMISTRY ORDERAB LES Final Result Performing Organization Address City/State/[facility] Co de Phone Number [facility] [address] [place] [address] * PAP LB RFLX HPV ASCU (11/24/2018 2:32 PM CDT) Diagnosis Comment 11/29/2018 11:13 AM CDT [facility] ([facility]) Comment:NEGATIVE FOR INTRAEP ITHELIAL LESION OR MALIGNANCY. Specimen Adequacy Comment 019 11:13 AM CDT [facility] ([facility]) Comment: Satisfactory for evaluation. Endocervical and/or squamous metaplastic cells (endocervical component) are present. Performed by Comment 11/29/2018 11:13 AM CDT [facility] ([facility]) Comment:Aamir Miller chnologist (ASCP) Comment . 11/29/2018 11:13 AM CDT [facility] ([facility]) Note Comment 11/29/2018 11:13 AM T [facility] ([facility]) Comment: The Pap smear is a screening test designed to aid in the detection of premalignant and malignant conditions of the uterine cervix. It is not a diagnostic procedure and should not be used as the sole means of detecting cervical cancer. Both false-positive and false-negative reports do occur. Note Comment 11/29/2018 11:13 AM T [facility] ([facility]) Comment: The HPV DNA reflex criteria were not met with this specimen result therefore, no HPV testing was performed. Pathology/Cytolo gy ENTIRE ENDOCERVIX / Unknown Collection / Unknown 11/24/2018 2:32 PM CDT 11/25/2018 7:38 AM CDT Narrative [facility] ([facility]) - 11/29/2018 11:13 AM CDT Performed at: [address] [place] [address] [id number] Manager Of Procurement: Fe Cruz MD, Phone: [phone] Specimen Comment: Source.............Cervix;Endocervix Specimen Comment: No. of containers..01 ThinPrep Vial Alondra Saxena DO LAB - PATHOLOGY/CYTOLOG Y ORDERABLES Final Result [facility] ([facility]) [address] [place] [address] * HEPATITIS C ANTIBODY (11/24/2018 2:32 PM CDT) Pathologist [facility] HCV Antibody Screen Non Reactive Non Reactive 11/24/2018 4:08 PM CDT [facility] HCV S/C Ratio 0.13 0.00 - 0.79 11/24/2018 4:08 PM CDT [facility] Comment: Vclxea-wm-ogkfrx ratio (S/CO) <0.80: Non Reactive Blood BLOOD SPECIMEN / Unknown Venipuncture / Unknown 11/24/2018 2:32 PM CDT 11/24/2018 2:36 PM CDT Narrative [facility] - 11/24/2018 4:08 PM CDT Non Reactive - Antibodies to Hepatitis C virus (HCV) were not detected, result does not exclude early acute HCV infection. Alondra Saxena DO LAB - CHEMISTRY ORDERAB LES Final Result [facility] [address] [place] [address] from Last 3 Months or Most Recently Relevant to Health Maintenance Insurance MEDICAID - [place] Advance Directives * Full Code (Latest Code Status on File) Date Activated Date Inactivated Comments 06/28/2018 1:00 PM 06/30/2018 1:33 PM Care Teams Air Quality Specialist Relationship Specialty Start Date End Date Mervin Kevin MD [address] [place] [address] PCP - General Family Medicine 12/29/17
--- OUTSIDE RECORDS SUMMARY | 2025-01-22 10:27 | XMS_ITS | Data Portability ---
Author Organization [facility] [employer] [facility], Main Office Address [address] [place] [address] Care Team Providers Care Rn On Site Name Role Phone ANA LAURA SANTIAGO Referring Provider Assessment Encounter Date Assessment Date [...] 90 mcg/actua tion aerosol inhaler 2024 025 [facility] #[id number], [address], [place], [address], 10/02/2024 12:40:21 Wixela Inhub 250 mcg-50 mcg/dose powder for inhalatio n 2024 025 [id number], [address] [place], [address], 10/02/2024 12:40:22 ipratropi um bromide 42 mcg (0.06 %) nasal spray 2024 025 [id number], [address] [place], [address], 10/02/2024 12:40:21 albuterol sulfate HFA 90 mcg/actua tion aerosol inhaler 2023 024 [facility] #[id number], [address] [place], [address], 01/12/2024 11:00:41 Wixela Inhub 250 mcg-50 mcg/dose powder for inhalatio n 2023 024 [facility] #[id number], [address] [place], [address], 01/12/2024 11:00:41 ipratropi um bromide 42 mcg (0.06 %) nasal spray 2023 024 [facility]acy #[id number], [address], [place], [address], 01/12/2024 11:00:42 albuterol sulfate HFA 90 mcg/actua tion aerosol inhaler 2022 023 [facility]acy #[id number], [address], [place], [address], 02/07/2023 10:06:41 ipratropi um bromide 42 mcg (0.06 %) nasal spray 2022 023 [facility] #[id number], [address], [place], [address], 02/07/2023 10:00:36 Patient TargetsNo targets recorded. Patient Instructions Encounter Date Encounter Id Patient Instructions Last Modified By Organization Details Last Modified Time 02/07/2023 [id number] complete PFT w/ post bronchodilator spirometry* - No auth needed Not available 01/02/2024 15:47:26 01/12/2024 [id number] complete PFT w/ post bronchodilator spirometry* [email or web address] Not available 08/13/2024 17:15:39 10/02/2024 [id number] complete PFT w/ post bronchodilator spirometry* Not available 10/02/2024 12:40:16 Reason for Referral None Reported. Results Created Date Observation Date Name Description Value Unit Range Abnormal Flag Note LastModifiedBy Organization Detail LastModifiedTime 07/28/1907/28/2022 [place], modif ied spike villafana ow study No observ ation record ed. [id number] [facility] [address] [place], [address], 08/25/2022 13:32:14 07/28/19 23 07/28/2022 CT, chest , w/o contr ast No observ ation record ed. [id number] [facility] [address] [place], [address], 08/25/2022 13:32:14 08/03/19 23 07/28/2022 [place], modif ied spike villafana ow study No observ ation record ed. [id number] [facility] ([facility] Scheduling) [address] [place], [address], 08/25/2022 13:32:14 02/02/20 23 01/31/2023 compl ete PFT w/ post [facility] hodil ator michelle metry * No observ ation record ed. [facility] ([facility] Call Scheduling) [address] [place], [address], 02/01/2023 17:29:30 10/05/19 25 10/02/2024 compl ete PFT w/ post [facility] hodil ator michelle metry * No observ ation record ed. [facility] (One Call Scheduling) [address] [place], [address], 10/04/2024 17:32:29 Result Notes None recorded. 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 Procedures Surgical History Date Name Laterality Status Provider Name and Address Organization Details Recorded Time 11/19/19 23 Hysterectomy completed Irma Mohr MA [place] [facility] [place] [facility] 02/07/2023 09:43:48 section completed Not Available [facility] 08/25/2022 13:29:35 Imaging Results None recorded. Procedure Notes None recorded. Medical Equipment None Reported. Allergies Allergen ID Allergen Name Allergen Category Reaction Reaction Severity Criticality Documentation Date Start Date Code Code System Note Provider Name and Address Organization Details Recorded Time 84215 Macrobid medicatio n Not available Not available Not available 08/25/2022 55990 1 RxNorm Not Available [facility] 13:32:12 Medications Name Sig Start Date Stop [...] % 72 /min 15 /min 98.6 [degF] 78884.4 1 g 110/66 mm[Hg] Not Available [facility] 3 [...] % 61 /min 15 /min 98.2 [degF] 16168.4 1 g 108/60 mm[Hg] Not Available [facility] 3 13:30:04 Date Recorded Heart rate Respiratory rate Provider N abelino and Address Organization Details Last Updated DateTime 10/02/2024 80 /min 15 /min Ruslan Reid MD [address] [facility] [address], [place], [address], [place] [employer] [facility] 10/02/2024 12:45:32 Date Recorded Body height Body mass index (BMI) Body weight Body temperature Heart rate Oxygen saturation Oxygen saturation in Arterial blood by Pulse oximetry Systolic And Diastolic Provider Name and Address Organization Details Last Updated DateTime 5 165.1 cm 26.6 kg/m2 34652.7 8 g 98.3 [degF] 80 /min 98 % 98 % 116/66 mm[Hg] Irma Mohr MA [facility] [employer] [facility] 5 12:20:22 Date Recorded Body height Body mass index (BMI) Body weight Oxygen saturation Oxygen saturation in Arterial blood by Pulse oximetry Body temperature Heart rate Systolic And Diastolic Provider Name and Address Organization Details Last Updated DateTime 4 165.1 cm 25 kg/m2 95164.8 6 g 98 % 98 % 98.1 [degF] 87 /min 118/68 mm[Hg] Fabian Lowe CMA [facility] [employer] [facility] 4 10:40:20 Date Recorded Heart rate Oxygen saturation Oxygen saturation in Arterial blood by Pulse oximetry Heart rate Respiratory rate Provider Name and Address Organization Details Last Updated DateTime 3 59 /min 99 % 99 % 59 /min 15 /min Ruslan Reid MD [address] [facility] [address], [place], [address], [facility] 3 10:07:55 Date Recorded Body height Body mass index (BMI) Body weight Body temperature Systolic And Diastolic Provider Name and Address Organization Details Last Updated DateTime 02/07/2023 165.1 cm 25 kg/m2 16857.8 6 g 98.1 [degF] 110/68 mm[Hg] Irma Mohr MA [facility] [employer] [facility] 3 09:47:14 Social History Question Answer Notes LastModified by Organizat ion Details LastModified Time Tobacco Smoking Status Former Smoker quit 3 years ago Irma Mohr MA null, [facility] 10/02/2024 12:17:03 What Is Your Level Of Caffeine Consumption? Occasional [id number].[id number] Information not available 08/25/2022 In The 14 Days Before Symptom Onset, Have You Had Close Contact With A Laboratory-confi rmed COVID-19 While That Case Was Ill? No MIGRATION.01819 18496 Information not available 08/25/2022 In The 14 Days Before Symptom Onset, Have You Had Close Contact With A Person Who Is Under Investigation For COVID-19 While That Person Was Ill? No MIGRATION.68276 73464 Information not available 08/25/2022 What Type Of Diet Are You Following? REGULAR MIGRATION.26788 22347 Information not available 08/25/2022 Do You Have An Electrostatic Air Filter? Yes MIGRATION.59587 45377 Information not available 08/25/2022 Are There Any Guns Present In Your Home? No MIGRATION.16515 16621 Information not available 08/25/2022 Do You Have A Humidifier? Yes MIGRATION.74706 97182 Information not available 08/25/2022 Where Do You Live? [place] MIGRATION.84041 62573 Information not available 08/25/2022 Do You Have Moisture Problems In Your Home? No MIGRATION.40341 43358 Information not available 08/25/2022 What Was The Date Of Your Most Recent Tobacco Screening? 10/02/2024 Information not available 10/02/2024 Do You Have Any Pets? Yes MIGRATION.89760 45295 Information not available 08/25/2022 Do You Use Your Seat Belt Or Car Seat Routinely? Yes Information not available 10/02/2024 Do You Have Smoke And Carbon Monoxide Detectors In Your Home? Yes MIGRATION.07009 46321 Information not available 08/25/2022 At What Age Did You Start Smoking Tobacco? 13 MIGRATION.93077 80491 Information not available 08/25/2022 Are You Passively Exposed To Smoke? No MIGRATION.25853 01327 Information not available 08/25/2022 How Much Tobacco Do You Smoke? No MIGRATION.21554 51435 Information not available 08/25/2022 Do You Use Sunscreen Routinely? No MIGRATION.49542 98395 Information not available 08/25/2022 How Many Years Have You Smoked Tobacco? 16 MIGRATION.04148 99214 Information not available 08/25/2022 Have You Recently Traveled Abroad? No MIGRATION.74748 24259 Information not available 08/25/2022 Do You Have Any Dietary Restrictions? No MIGRATION.38779 40042 Information not available 08/25/2022 Sex: Female Functional Status Question Answer Note LastModified by Organizat ion Details LastModified Time Do you use any illicit or recreational drugs? Yes marijuana MIGRATION.61956 41158 Information not available 08/25/2022 Do you or have you ever used any other forms of tobacco or nicotine? No Information not available 10/02/2024 What is your level of alcohol consumption? None MIGRATION.59348 72332 Information not available 08/25/2022 Have you been exposed to chemicals or toxins? 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 Heavy MIGRATION.55024 75925 Information not available 08/25/2022 Mental Status Question Answer Note LastModified by Organizat ion Details LastModified Time Do you feel stressed (tense, restless, nervous, or anxious, or unable to sleep at night)? [id number] MIGRATION.[id number] 6 Information not available 08/25/2022 Family History Relationship Description Onset Age of this Age Resolved Age Notes LastModified by Organization Details LastModified Time Father Family history of malignant neoplasm MIGRATION.494 [id number] Not available 08/25/2022 13:29:36 Father Blood coagulation disorder MIGRATION.151 [id number] Not available 08/25/2022 13:29:36 Father Diabetes mellitus MIGRATION.069 [id number] Not available 08/25/2022 13:29:36 Father Chronic obstructive pulmonary disease MIGRATION.879 [id number] Not available 08/25/2022 13:29:36 Brother Asthma MIGRATION.776 [id number] Not available 08/25/2022 13:29:36 Sister Asthma MIGRATION.255 [id number] Not available 08/25/2022 13:29:36 Paternal Grandmother Asthma MIGRATION.707 [id number] Not available 08/25/2022 13:29:36 Maternal Grandmother Asthma MIGRATION.939 [id number] Not available 08/25/2022 13:29:36 Medical History Condition [...] HAVE YOU BEEN HOSPITALIZED OR SEEN IN [facility] IN THE PAST YEAR ? [...] mcg/0.3 mL dose 04/20/2021 completed Not Available [facility] 4 17:07:19 COVID-19, mRNA, LNP-S, PF, 30 mcg/0.3 mL dose 03/30/2021 completed Not Available [facility] 4 17:07:19 Past Encounters Encounter ID Performer Location Encounter Start Date Encounter Closed Date Diagnosis/Indication Diagnosis SNOMED-CT Code Diagnosis ICD10 Code Diagnosis Note [id number] MD CLAUDIA Houston[facility] [address] [address] 04/09/2021 00:00:00 04/09/2021 09:36:09 [id number] MD CLAUDIA Houston_[facility]MD[facility] [address] [address] 04/23/2021 00:00:00 04/23/2021 11:07:07 [id number] MD CLAUDIA Preciado_GMDena Pulmonolo gy [address] [address] 10/08/2021 00:00:00 10/08/2021 15:19:33 [id number] MD CLAUDIA Preciado_GMG Pulmonolo [facility] [address] [place] [id number] 10/22/2021 00:00:00 10/22/2021 15:34:32 [id number] MD CLAUDIA Preciado_GMG Pulmonolo [facility] [address] [place] [id number] 04/22/2022 00:00:00 04/22/2022 13:17:16 [id number] MD CLAUDIA Preciado_GMG Pulmonolo [address] [address] 07/15/2022 00:00:00 07/15/2022 16:05:23 [id number] MD CLAUDIA Preciado_[facility]MD[facility] Pulmonolo [address] [address] 08/05/2022 00:00:00 08/05/2022 15:35:19 [id number] MD CLAUDIA Preciado_GMG Pulmonolo [address] [address] 02/07/2023 09:27:31 02/08/2023 10:11:10 Posterior rhinorrhea 78487113 R09.82 Severe per sistent asthma 754746147 J45.50 [id number] MD CLAUDIA Preciado_GMG Pulmonolo [address] [address] 01/12/2024 10:29:39 01/13/2024 08:21:56 Severe persistent asthma 910853890 J45.50 Posterior rhinorrhea 758 80504 R09.82 [id number] Karie Juares NP [facility] [address] [place] [address] 07/05/2024 14:05:19 07/05/2024 17:28:27 [id number] Karie Juares NP [facility] [address] [place] [address] 08/02/2024 14:32:51 08/02/2024 15:49:42 [id number] Ruslan Reid MD [facility] Pulmonolo gy [address] [address] 10/02/2024 11:57:56 10/03/2024 13:12:21 Severe persistent asthma 418423912 J45.50 Posterior rhinorrhea 758 11872 R09.82 Health Concerns Section Related Observation LastModified by Organization Detai ls LastModified Time None Recorded Concern Status LastModified by Organization Details LastModified Time None Recorded Advance Directives Directive None Recorded Payers Insurance Date Sequence Insurance Name Policy Number Policy Barrett Covered Member ID Barrett Member ID Guarantor Name 10/02/2024 1 [place] [id number] 1 Yu Burton Daniel [id number] Yu Burton Daniel 12/01/2024 1 [place] Yu Burton Daniel [id number] Yu Burton Daniel 10/30/2024 2 [place] [id number] 1 Yu Burton Daniel [id number] Yu Burton Daniel OBGyn Episode No OBEpisode recorded.
--- OUTSIDE RECORDS SUMMARY | 2025-01-22 10:27 | XMS_ITS ---
Author Organization [facility] Address [address] [place] [address] Phone Care Team Providers Care Computing Tutor Name Role Phone Mervin Kevin MD Primary Care Provider Mirtha Chronic Condition Monitoring Status:Enrolled (Active) Start date:01/15/2025 Enrollment date:01/15/2025 Related social drivers of health:Social Connections, Alcohol Use, Tobacco Use, Financial Resource Strain, Stress, Physical Activity,Food Insecurity, Transportation Needs, Housing Stability, Utilities Related service episodes:[facility] Service Episode (Closed) Continued Care and Services Coordination
--- OUTSIDE RECORDS SUMMARY | 2025-01-22 10:27 | XMS_ITS | Clinical Summary ---
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
--- OUTSIDE RECORDS SUMMARY | 2025-01-22 10:27 | XMS_ITS | Encounter Summary ---
Author Organization [facility] Address [address] [place] [address] Phone Care Team Providers Care Registered Private Duty Nurse Name Role Phone Mervin Kevin MD Primary Care Provider [phone] Encounter Details Date Type Department Care Team (Late Contact Info) Description 12/31/2024 Results [facility] [address] [place] [address] Cinthia Noriega, PROCESS DESIGNER, ESCROW OFFICER [address] [place] [address] MRI ABDOMEN W CONTRAST Social History Tobacco [...] Upcoming Encounters Date Type Department Care Team ([facility] Contact Info) Description 01/23/2025 8:40 AM CDT Telemedicine [facility] [address] [place] [address] 02/04/2025 2:40 PM CDT [facility] [address] [place] [address] Wili Solomon MD [address] [place] [address] Discharge Disposition: Discharged to home or Selfcare 03/19/2025 10:00 AM CDT Appointment [facility] [address] [place] [address] Cinthia Noriega, PROCESS DESIGNER, ESCROW OFFICER [address] [place] [address] Discharge Disposition: Discharged to home or Selfcare documented as of this encounter Visit Diagnoses Not on filedocumented in this encounter Care Teams Registered Private Duty Nurse Relationship Specialty Start Date End Date Mervin Kevin MD [address] [place] [address] PCP - General Family Medicine 11/21/24 documented as of this encounter
--- OUTSIDE RECORDS SUMMARY | 2025-01-22 10:27 | XMS_ITS | Continuity of Care Document ---
Author Organization [facility] Address [address] [place] [address] Phone Care Team Providers Care Solder Cream Maker Name Role Phone Rausch OD, Erasmo Unavailable Unavailable Advance Directives Directive Yes / No Effective Date File Name No Information Encounters Encounter Description Practice Location Reason(s) For Visit Diagnoses Date Provider Providers Copied on Encounter [facility], [address], [place], [place], [id number], [place] tel:[phone] [facility] [place] No Information Apr- 4-200 4 Rausch OD Erasmo. [address] , [address], [place], [address], [place]. tel:[phone] Family History Family Member Type Diagnosis Age At Onset No Information Payers Payer name Insurance type Covered green party ID Authoriza tion(s) Medicaid [facility] [id number] Social History Type Description Quantity Date Captured [...]
== END 2025-01-22 10:13 | disposition home or self-care (01) ==
PROVIDERS: PCP Emergency Medicine; Visit Provider Surgery
DX: N64.52 Nipple discharge (principal); N63.12 Unspecified lump in the right breast, upper inner quadrant; R92.343 Mammographic extreme density, bilateral breasts
CPT/HCPCS: 77049; A9577; C8908

== ENCOUNTER 2025-03-25 09:15 | Outpatient (CLI) | payer OTHER, SELFPAY ==
--- OUTSIDE RECORDS SUMMARY | 2004-05-20 08:30 | XMS_ITS | Continuity of Care Document ---
Author Organization [facility] Address [address] [facility] [address] [place] [address] Phone Care Team Providers Care Manager Android Name Role Phone Rausch OD, Erasmo Unavailable Unavailable Advance Directives Directive Yes / No Effective Date File Name No Information Encounters Encounter Description Practice Location Reason(s) For Visit Diagnoses Date Provider Providers Copied on Encounter [facility], [address] [facility] [address], [place], [place], [id number], [place] tel:[phone] [facility] [place] No Information Apr- 4-200 4 Rausch OD Erasmo. [address] [facility] [address] [place] , [address], [place], [address], [place]. tel:[phone] Family History Family Member Type Diagnosis Age At Onset No Information Payers Payer name Insurance type Covered democrat ID Authoriza tion(s) Medicaid [facility] [id number] Social History Type Description Quantity Date Captured [...]
--- OUTSIDE RECORDS SUMMARY | 2023-09-14 05:45 | XMS_ITS | Continuity of Care Document ---
Author Organization [facility] Address [address] [address] Phone Care Team Providers Care Driver Service Technician Name Role Phone Pinky Daniels MD Unavailable [...] [facility], [address], [id number], [place] tel:[phone] [facility] No Information 0 4 Frances Cheshil. [address], [place], [address], [place]. tel:[phone] Referring Provider: Mervin Kevin, [address] [place] [address], [address]. tel:[phone] Est (Level 4) OFFICE/OUTPA TIENT VISIT [facility], [address] [place] [address], [id number], [place] tel:[phone] [facility] allergy symptoms (chief complaint) Recurrent acute suppurative otitis media w/o spontaneous rupture of ear drum of earOther allergic rhinitisSevere persistent asthmaAbnormal results of function studies of other systemsIn[facility] 2 3 Frances Cheshil. [address], [place], [address], [place]. tel:[phone] Referring Provider: Mervin Kevin, [address] [place] [address], [address]. tel:[phone] Est (Level 3) OFFICE/OUTPA TIENT VISIT [facility], [address] [place] [address], [id number], [place] tel:[phone] [facility] recurrent infections (chief complaint) Recurrent acute suppurative otitis media w/o spontaneous rupture of ear drum of earOther allergic rhinitisSevere persistent asthmaAbnormal results of function studies of other systems 0 3 Frances Cheshil. [address], [place], [address], [place]. tel:[phone] Referring Provider: Ruslan Reid, 2043 [facility] 15, [place], [address]. tel:[phone] Est (Level 4) OFFICE/OUTPA TIENT VISIT [facility], [address] [place] [address], [id number], [place] tel:[phone] [facility] recurrent infections (chief complaint) Recurrent acute suppurative otitis media w/o spontaneous rupture of ear drum of earSevere persistent asthmaOther allergic rhinitisAbnorma l results of function studies of other systems 3 Frances Cheshil. [address], [place], [address], [place]. tel:[phone] Referring Provider: Ruslan Reid, 2043 [facility] 15, [place], [address]. tel:[phone] New (Level 4) OFFICE/OUTPA TIENT VISIT [facility], [address] [place] [address], [id number], [place] tel:[phone] [facility] recurrent infections (chief complaint) Recurrent acute suppurative otitis media w/o spontaneous rupture of ear drum of earSevere persistent asthmaOther allergic rhinitis Fe-0 3 Frances Cheshil. [address], [place], [address], [place]. tel:[phone] Referring Provider: Ruslan Reid, 2043 [facility] 15, [place], [address]. tel:[phone] Family History Family Member Type Diagnosis Age At Onset Paternal aunt Problem rheumatoid arthritis Father Problem Allergic rhinitis Brother Problem Asthma Paternal aunt Problem Lupus erythematosus Sister Problem Asthma Paternal grandmother Problem Asthma Payers Payer name Insurance type Covered green party ID Authoriza timunir(s) [facility] [id number] Social History Type Description Quantity Date Captured Comments Alcohol Use Details Unknown Caffeine Use Details Unknown Tobacco Use Status No Information Smoking Status No Information Sex Female Chief Complaint And Reason For Visit No Information Reason For Referral Reason For Referral No Information Plan Of Treatment Date Type Action Status Future Order: Lab Order S. Pneum onia-23 Serotypes (02900), Sent on: Sent Future Order: Lab Order CBC With Diff (63 99), Sent on: Sent Future Order: Lab Order ESR (809), Sent o n: Sent Future Order: Lab Order CRP ([id number]), Sent on: Sent Future Order: Lab Order Comprehe nsive Metabolic Panel ([id number]), Sent on: Sent Future Order: Lab Order CBC With Differential ([id number]), Sent on: Sent Future Order: Lab Order Compleme nt Total (CH50) ([id number]), Sent on: Sent Future Order: Lab Order Immunogl obulins A/E/G/M, Serum ([id number]), Sent on: Sent Future Order: Lab Order Mannose Binding Lectin ([id number]), Sent on: Sent Future Order: Lab Order Strep Pn eumo 23 ([id number]), Sent on: Sent Future Order: Lab Order T- and B -Lymphocyte and Natural Killer Cell Profile ([id number]), Sent on: Sent Future Order: Lab Order Tetanus/ Diphtheria Antibody Profile ([id number]), Sent on: Sent History Of Present Illness [...] protective(She had Pneumovax on 09/02/22)08/12/22IgIgA: 126IgM: 79IgE: 831YW96: 58AH50: (deferred)Anti-Spn 23: decreased 02/16 = 65% protectiveAnti-Diphtheria: 0.1 (protective)Anti-Tetanus: 1.17 (protective)AEC: 215AANC: 16,641Flow CytometryCD3+: 56% (L), 1612 (wnl)CD3+CD4+: 35%, 1151BW7+CD8+: 26%, 772CD4/CD8 Ratio: 1.33CD16+CD56+: 32% (H), 912 (H)CD19+: 10%, (poor scan quality, best interpretation listed)IgG 995*IgG1 594*IgG2 270*IgG3 74*IgG4 74Environmental Immunocaps: +HDM, cockroach, grass, trees, weeds other than ragweed with total IgE 515W4GR Phenotype: PI*MMTB Quant Gold: negativeHRCT Chest on [...] are planning a colonoscopy future.Data08/12/22IgIgA: 126IgM: 79IgE: 546EO17: 58AH50: (deferred)Anti-Spn 23: decreased 02/16 = 65% protectiveAnti-Diphtheria: 0.1 (protective)Anti-Tetanus: 1.17 (protective)AEC: 215AANC: 16,641Flow CytometryCD3+: 56% (L), 1612 (wnl)CD3+CD4+: 35%, 5580JG2+CD8+: 26%, 772CD4/CD8 Ratio: 1.33CD16+CD56+: 32% (H), 912 (H)CD19+: 10%, (poor scan quality, best interpretation listed)IgG 995*IgG1 594*IgG2 270*IgG3 74*IgG4 74Environmental Immunocaps: +HDM, cockroach, grass, trees, weeds other than ragweed with total IgE 451T1DT Phenotype: MMTB Quant Gold: negativeHRCT Chest on [...] will see hematology next month.Data08/12/22IgIgA: 126IgM: 79IgE: 658XI83: 58AH50: (deferred)Anti-Spn 23: decreased 02/16 = 65% protectiveAnti-Diphtheria: 0.1 (protective)Anti-Tetanus: 1.17 (protective)AEC: 215AANC: 16,641Flow CytometryCD3+: 56% (L), 1612 (wnl)CD3+CD4+: 35%, 7752CR4+CD8+: 26%, 772CD4/CD8 Ratio: 1.33CD16+CD56+: 32% (H), 912 (H)CD19+: 10%, (poor scan quality, best interpretation listed)IgG 995*IgG1 594*IgG2 270*IgG3 74*IgG4 74Environmental Immunocaps: +HDM, cockroach, grass, trees, weeds other than ragweed with total IgE [id number] Phenotype: MMTB Quant Gold: negativeHRCT Chest on [...] weeds other than ragweed with total IgE [id number] Phenotype: MMTB Quant Gold: negativeHRCT Chest on [...]
--- OUTSIDE RECORDS SUMMARY | 2025-03-25 09:45 | XMS_ITS | Clinical Summary ---
Author Organization [facility] Address [address] [place] [address] Phone Care Team Providers Care State Inspector Name Role Phone Mervin Kevin MD Primary Care Provider [phone] Allergies Active Allergy Reactions Criticality Noted Date Comments Nitrofurantoin Other (see Comments),Anaphylax is,Shortness of Breath,Hives,Rash High 12/29/2017 Other-Environmental Allergen (Not Found In Search) Other (see Comments) 01/16/2025 Grass, cottonwood Medications fluticasone (FLONASE) 50 MCG/ACT Suspension 2 Sprays by Nasal route daily. Active ergocalciferol (VITAMIN D) 61873 UNIT Capsule Take 1.25 mg by mouth [...] Active ipratropium (ATROVENT) 0.06 % Solution 1 [place] by Nasal route daily. 07/15/19 23 Active albuterol (PROVENTIL, VENTOLIN) (2.5 MG/3ML) 0.083% Nebulizer Soln take 2.5 mg by inhalation every 4 hours as needed. 04/27/20 18 Active albuterol 108 (90 Base) MCG/ACT Aerosol Solution take 1-2 Puffs by inhalation every 4 hours as needed for Wheezing or Cough. Active SUMAtriptan (Imitrex) 25 MG Tablet Take 25 mg by mouth once as needed. Use as directed. May repeat dose in 2 hours if headache recurs. Active cyclobenzaprine (FLEXERIL) 10 MG Tablet Take 10 mg by mouth nightly as needed. 09/09/19 23 Active sertraline (ZOLOFT) 50 MG Tablet Take 50 mg by mouth daily. Take after a meal. Active metroNIDAZOLE (FLAGYL) 500 MG Tablet TAKE 1 TABLET BY MOUTH EVERY 8 HOURS FOR 2 WEEKS 01/24/20 25 Active tetracycline (ACHROMYCIN, SUMYCIN) 500 MG Capsule TAKE 1 TABLET BY MOUTH 4 TIMES DAILY FOR 2 WEEKS 01/26/20 25 Active Eliquis 5 MG Tablet TAKE 1 TABLET BY MOUTH TWICE A DAY FOR ATRIAL FIBRILLATION 60 Tablet 03/14/20 Active apixaban (Eliquis) 5 MG TabletIndicatio ns:Atrial Fibrillation Take 1 Tablet by mouth 2 times daily. Indications: Atrial Fibrillation 60 Tablet 02/16/20 25 2024 Discontinued Active Problems Problem Noted Date Diagnosed Date H. pylori infection 02/04/2025 Gastroesophageal reflux disease 02/04/2025 Splenic vein thrombosis 01/02/2025 Nodule of right lung 11/21/2024 History of iron deficiency 11/21/2024 Persistent atrial fibrillation 11/21/2024 Chronic bronchitis 11/21/2024 History of systemic lupus erythematosus (SLE) Encounters Date Type Department Care Team Description 03/19/2025 9:47 AM CDT - 03/19/2025 11:59 PM CDT Hospital Encounter [facility] [address] [place] [address] Cinthia Noriega APRN, MANAGER SHOP Discharge Disposition: Discharged to home or Selfcare 03/17/2025 Travel 03/14/20[facility] [address] [place] [phone] Wili Solomon MD Medication Refill 02/15/2025 [facility] [address] [facility] [address] Wili Solomon MD 02/04/2025 2:40 PM CDT [facility] [address] [place] [phone] Wili Solomon MD History of systemic lupus erythematosus (SLE) (HCC) (Primary Dx); Splenic vein thrombosis; Chronic bronchitis, unspecified chronic bronchitis type (HCC); Nodule of right lung; History of iron deficiency; H. pylori infection; Gastroesophageal reflux disease, unspecified whether esophagitis present Discharge Disposition: Discharged to home or Selfcare 02/04/2025 Travel 02/02/2025 Travel 01/16/2025 3:30 PM CDT Telemedicine [facility] [address] [place] [phone] Devorah Li APRN, [place] Bronchitis, chronic with acute exacerbation (HCC) (Primary Dx) Discharge Disposition: Discharged to home or Selfcare 01/16/2025 Nurse Triage [facility] [address] [place] [address] [phone] Marla Davenport, RN COPD 01/15/2025 Patient Outreach [facility] [address] [place] [address] [phone] Navigator, Digital Health Social Concerns (Completed SDOHnquestionaire) 01/02/2025 2:40 PM CDT Lab [facility] [address] [place] [phone] Wili Solomon MD History of iron deficiency; Splenic vein thrombosis Discharge Disposition: Discharged to home or Selfcare 01/02/2025 2:20 PM CDT Office Visit [facility] [address] [place] [phone] Wili Solomon MD History of iron deficiency (Primary Dx); Splenic vein thrombosis Discharge Disposition: Discharged to home or Selfcare 01/02/2025 Travel 12/31/2024 Results Follow-Up [facility] [address] [place] [phone] Cinthia Noriega APRN, MANAGER SHOP MRI ABDOMEN W CONTRAST, CT CHEST W CONTRAST from Last 3 Months Immunizations Immunization Administration Dates Next Due Hepatitis A Vaccine 08/20/2014,01/06/2010 Influenza Vaccine, Quadrivalent, PF 04/11/2019,1 06/27/2017 MMR Vaccine 06/30/2018 Pneumococcal Vaccine Adult - 23 Valent 3 TDAP Vaccine 09/06/2019,04/06/2018 Family History Medical History Relation Name Comments [...] How often do you attend chur or gnosticism services? More than 4 times per year 01/15/2025 Do you belong to any clubs o r organizations such as presybeterian groups, unions, fraternal or athletic groups, or [...] medical care, and heating? Very hard 01/15/2025 [facility] Occupat ional Health - Occupational Stress [...] any time in the past 12 m [facility], were you homeless or living in a retirement (including now)? No 01/15/2025 [facility] Utilities Answer Date Recorded In the [...] Sign Reading Time Taken Comments Blood Pressure 106/70 02/04/2025 2:54 PM CDT Pulse 91 02/04/2025 2:54 PM CDT Temperature 36.9 C (98.5 F) 02/04/2025 2:54 PM CDT Respiratory Rate 18 02/04/2025 2:54 PM CDT Oxygen Saturation 99% 02/04/2025 2:54 PM CDT Inhaled Oxygen Concentration - - Weight 72.8 kg (160 lb 9.6 oz) 02/04/2025 2:54 P M CDT Height 170.2 cm (5' 7) 02/04/2025 2:54 PM CDT Body Mass Index 25.15 02/04/2025 2:54 PM CDT Plan of Treatment Upcoming Encounters Date Type Department Care Team (Late st Contact Info) Description 05/20/2025 9:00 AM GROUNDS CREW SUPERVISOR [facility] [address] [place] [phone] Wili Solomon MD [address] [place] [address] Discharge Disposition: Discharged to home or Selfcare 06/10/2025 1:40 PM GROUNDS CREW SUPERVISOR [facility] [address] [place] [phone] Wili Solomon MD [address] [place] [address] Discharge Disposition: Discharged to home or Selfcare Health Maintenance Due Date Last Done Comments Hepatitis B Immunization (1 of 3 - 19+ 3-dose series) 2009 Human Papillomavirus (HPV) Immunization (1 - 3-dose SCDM series) 2017 HPV/Cotest 2020 Cervical Cancer Screening (CCS) 11/24/2021 Pap Smear 11/24/2021 11/24/2018 Influenza Immunization (#1) 2025 04/11/2019, 1 06/27/2017 Td Immunization Every 10 Years (Adults With 1 Tdap) 09/05/2029 09/06/2019, 04/06/2018 Respiratory Syncytial Virus (RSV) Immunization (Adult) (1 - 1-dose 75+ series) 2065 Hepatitis C Virus (HCV) Screening Completed 11/24/2018 TdaP Immunization Discontinued 09/06/2019, 04/06/2018 Pneumococcal Immunization Combined Completed 03/19/2025, 09/01/2022 SARS-COV-2 Immunization Completed 03/19/20, 10/09/2021, 04/20/2021, Additional history exists Meningococcal Immunization (ACWY) Aged Out No longer eligible based on [...] PM CDT [facility] - Crisis Services Mental Health Services Stress Recommended 01/15/2025 12:04 PM CDT [employer] - Foreclosure Prevention Program Help Hotlines Stress Recommended 01/15/2025 12:04 PM CDT [facility] Housing Insecurity Needs Utilities Recommended 01/15/2025 12:01 PM CDT [facility] - [facility] (Housing, Utilities, Basic Needs) Help Find Housing Housing Stability Recommended 01/15/2025 12:01 PM CDT [facility] Help Find Housing, Care Home Housing, Residential Housing Housing Stability Recommended 01/15/2025 12:01 PM CDT [facility] Emergency Food Food Insecurity Recommended 01/15/2025 11:59 AM CDT [facility] Food Pantry Food Insecurity Recommended 01/15/2025 11:59 AM CDT [facility] Food Pantry Food Insecurity Recommended 01/15/2025 11:59 AM CDT [facility] - Food Pantry Food Pantry Food Insecurity Recommended 01/15/2025 11:59 AM CDT [employer] - Food Pantry Food Pantry Food Insecurity Recommended 01/15/2025 11:59 AM CDT from Last 12 Months Procedures Procedure Name Priority Date/Time Associated Diagnosis Comments CT CHEST W CONTRAST Routine 03/19/2025 1 0:38 AM CDT Nodule of right lung CBC WITH AUTO DIFFERENTIAL Routine 01/02/2025 3:33 [...] History of iron deficiency Splenic vein thrombosis CMP (COMPREHENSIVE METABOLIC PANEL) 12/27/2024 12:00 AM CDT COMPLETE BLOOD COUNT (CBC) WITH DIFF 12/27/2024 12:00 AM CDT ECHO GENERIC 12/25/2024 12:00 AM CDT SURGERY CONSULT 12/24/2024 12:00 AM CDT URINALYSIS (UA) RANDOM 12:00 AM CDT US - ABDOMEN/PELVIS 12/24/2024 1 2:[address] - ABDOMEN/PELVIS 12/24/2024 1 2:00 AM CDT from Last 3 Months Results * CT CHEST W CONTRAST (03/19/2025 10:38 AM CDT) Anatomical Region Laterality Modality Chest N/A Computed Tomogra phy 03/19/2025 10:3 8 AM CDT Impressions 03/19/2025 11:43 AM CDT IMPRESSION: Resolution of right middle lobe infiltrates. No new suspicious lung nodules. Narrative 03/19/2025 11:[address] CHEST W CONTRAST : 03/19/2025 10:38 AM DICTATING PHYSICIAN: EMELY CABALLERO [facility]. HISTORY: As below. ADDITIONAL TECHNOLOGIST HISTORY: Solitary pulmonary nodule TECHNIQUE: Multiple helical axial images were obtained through the chest with intravenous contrast. Coronal reformats were performed. Image acquisition performed utilizing automated exposure control (AEC) and iterative reconstruction software in order to lower patient dose. IV CONTRAST TYPE AND VOLUME: Administered contrast documentation is located within the patient's electronic health record. RADIATION DOSE: DLP 185 COMPARISON: 12/03/2024 FINDINGS: Heart and great vessels: The heart and great vessels are grossly within normal limits. Pericardium: No fluid or thickening. Lymph nodes: No evidence for pathologic axillary, mediastinal, or hilar lymphadenopathy. Esophagus: Normal. Pleura: No pleural effusion or thickening. Lung parenchyma: Right middle lobe patchy opacities have resolved. Scattered pulmonary micronodules seen previously less in 6 cm, unchanged Osseous structures and soft tissues: No osseous lytic or blastic lesion. No acute traumatic finding. Age-appropriate degenerative changes seen. Cephalad abdomen: Limited visualization of the upper abdomen does not demonstrate any acute finding. Procedure Note Emely Caballero MD - 03/19/2025 CT CHEST W CONTRAST : 03/19/2025 10:38 AM DICTATING PHYSICIAN: EMELY CABALLERO [facility]. HISTORY: As below. ADDITIONAL TECHNOLOGIST HISTORY: Solitary pulmonary nodule TECHNIQUE: Multiple helical axial images were obtained through the chest withintravenous contrast. Coronal reformats were performed. Imageacquisition performed utilizing automated exposure control (AEC) anditerative reconstruction software in order to lower patient dose. IV CONTRAST TYPE AND VOLUME: Administered contrast documentation islocated within the patient's electronic health record. RADIATION DOSE: DLP 185 COMPARISON: 12/03/2024 FINDINGS: Heart and great vessels: The heart and great vessels are grossly withinnormal limits. Pericardium: No fluid or thickening. Lymph nodes: No evidence for pathologic axillary, mediastinal, or hilarlymphadenopathy. Esophagus: Normal. Pleura: No pleural effusion or thickening. Lung parenchyma: Right middle lobe patchy opacities have resolved.Scattered pulmonary micronodules seen previously less in 6 cm, unchanged Osseous structures and soft tissues: No osseous lytic or blastic lesion.No acute traumatic finding. Age-appropriate degenerative changes seen. Cephalad abdomen: Limited visualization of the upper abdomen does notdemonstrate any acute finding. IMPRESSION: Resolution of right middle lobe infiltrates. No new suspicious lungnodules. us Cinthia Noriega WAITER/WAITRESS TAVERN, MANAGER SHOP IMG CT ORDERABLES Brit l Result * FACTOR 2 PROTHROMBIN GENE (01/02/2025 3:33 PM CDT) PROTHROMBIN GENE Normal (Homozygou s wild-type genotype) Normal (Homozygo us wild-type genotype) [facility] CEPHE[facility] GENEXPERT 01/03/2025 9:10 AM CDT [facility] Comment: Sample is negative for the Factor II (Prothrombin) [id number] mutation (i.e., no mutant allele present). Increased [...] PM CDT 01/02/2025 3:33 PM CDT Narrative [facility] - 01/03/2025 9:10 AM CDT Factor 5 normal Wili Solomon MD IMMUNOLOGY ORDERABLES Fi nal Result Performing Organization Address City/[facility]/ZIP Co de Phone Number [facility] [address] [place] [address], [place] * FACTOR 5 LEIDEN GENE MUTATION (01/02/2025 3:33 PM CDT) FACTOR 5 LEIDEN MUT Normal (Homozygou s wild-type genotype) Normal (Homozygo us wild-type genotype) [facility] CEPHE[facility] GENEXPERT 01/03/2025 9:09 AM CDT [facility] Comment: Sample is negative for the Factor V Leiden [id number] mutation (i.e., no mutant allele present). Increased [...] PM CDT 01/02/2025 3:33 PM CDT Narrative [facility] - 01/03/2025 9:09 AM CDT Factor 2 normal Wili Solomon MD IMMUNOLOGY ORDERABLES Fi nal Result Performing Organization Address City/[facility]/ZIP Co de Phone Number [facility] [address] [place] [address], [place] * IRON,TRANSFERN,CALC.TIBC,%SAT (01/02/2025 3:33 PM CDT) IRON 49 25 - 156 mcg/dL 01/02/2025 4:44 PM CDT [facility] TRANSFERRIN 212 180 - 382 mg/dL 01/02/2025 4:44 PM CDT [facility] TIBC, CALCULATED 265 265 - 497 mcg/dL 01/02/2025 4:44 PM CDT [facility] % SATURATION * 18 15 - 62 % 01/02/2025 4:44 PM CDT [facility] Blood Venipuncture / Unknown 01/02/2025 3:33 PM CDT 01/02/2025 3:33 PM CDT Wili Solomon MD CHEMISTRY ORDERABLES Fin al Result Performing Organization Address City/[facility]/ZIP Co de Phone Number [facility] [address] [place] [address] * (ABNORMAL) LUPUS ANTICOAG PROFILE (01/02/2025 3:33 PM CDT) INR 1.0 0.9 - 1.2 01/04/2025 12:54 PM CDT [facility] THROMBIN TIME 16.2 15.1 - 18.5 sec 01/04/2025 12:54 PM CDT [facility] PROTIME-PATIEN T 13.5 11.6 - 14.8 sec 01/04/2025 12:54 PM CDT [facility] APTT-LA 39.1(H) 30.6 - 38.8 sec 01/04/2025 12:54 PM CDT [facility] DRVV SCREEN RATIO 1.2 <=1.2 ratio 01/04/2025 12:54 PM CDT [facility] Blood Venipuncture / Unknown 01/02/2025 3:33 PM CDT 01/02/2025 3:33 PM CDT Narrative [facility] - 01/04/2025 12:54 PM CDT No evidence of lupus-like anticoagulant based on results of Lupus sensitive Activated Partial Thromboplastin Time (APTT) and Dilute Geraldo's Viper Venom Time (DRVVT). us Wili Solomon MD HEMATOLOGY ORDERABLES Fi nal Result [facility] [address] [place] [address], [place] * BETA-2 GPI AB IGA, IGG, IGM (01/02/2025 3:33 PM CDT) BETA-2 GLYCOPROTEIN IGA <2.0 <20.0 APL-U/mL 01/02/2025 10:53 PM CDT [facility] BETA-2 GLYCOPROTEIN IGG <1.4 <20.0 GPL-U/mL 01/02/2025 10:53 PM CDT [facility] BETA-2 GLYCOPROTEIN IGM <1.5 <20.0 MPL-U/mL 01/02/2025 10:53 PM CDT [facility] Blood Venipuncture / Unknown 01/02/2025 3:33 PM CDT 01/02/2025 3:33 PM CDT Narrative [facility] - 01/02/2025 10:53 PM CDT Antibody testing was performed by multiplex flow immunoassay on the [employer] platform. WiliGhada Solomon MD IMMUNOLOGY ORDERABLES nal Result [facility] [address] [place] [address], [place] * ANTI CARDIOLIPIN IGG, IGM & IGA (01/02/2025 3:33 PM CDT) CARDIOLIPIN IGA <2.0 <20.0 APL-U/mL 01/02/2025 10:53 PM CDT [facility] CARDIOLIPIN IGG <1.6 <20.0 GPL-U/mL 01/02/2025 10:53 PM CDT [facility] CARDIOLIPIN IGM <1.5 <20.0 MPL-U/mL 01/02/2025 10:53 PM CDT [facility] Blood Venipuncture / Unknown 01/02/2025 3:33 PM CDT 01/02/2025 3:33 PM CDT Narrative [facility] - 01/02/2025 10:53 PM CDT Antibody testing was performed by multiplex flow immunoassay on the Actions platform. us Wili Solomon MD IMMUNOLOGY ORDERABLES Fi nal Result [facility] [address] [place] [address], * (ABNORMAL) CBC WITH AUTO DIFFERENTIAL (01/02/2025 3:33 PM CDT) WBC 11.45 4.00 - 12.00 10(3)/mcL 01/02/2025 4:28 PM CDT [facility] RBC 4.76 3.80 - 5.30 10(6)/mcL 01/02/2025 4:28 PM CDT [facility] HEMOGLOBIN (HGB) 13.8 12.0 - 15.8 g/dL 01/02/2025 4:28 PM CDT [facility] HEMATOCRIT (HCT) 42.1 36.0 - 47.0 % 01/02/2025 4:28 PM CDT [facility] MCV 88.4 82.0 - 96.0 fL 01/02/2025 4:28 PM CDT [facility] MCH 29.0 26.0 - 34.0 pg 01/02/2025 4:28 PM CDT [facility] MCHC 32.8 31.0 - 36.0 g/dL 01/02/2025 4:28 PM CDT [facility] PLATELET COUNT 276 140 - 440 10(3)/mcL 01/02/2025 4:28 PM CDT [facility] RDW 12.5 11.8 - 15.5 % 01/02/2025 4:28 PM CDT [facility] MPV 11.3 9.7 - 12.4 fL 01/02/2025 4:28 PM CDT [facility] NEUTROPHILS 76.5(H) 47.0 - 73.0 % 01/02/2025 4:28 PM CDT [facility] LYMPHOC[facility]TES 15.2(L) 18.0 - 42.0 % 01/02/2025 4:28 PM CDT [facility] MONOCYTES 6.6 4.0 - 12.0 % 01/02/2025 4:28 PM CDT [facility] EOSINOPHILS 0.8 0.0 - 5.0 % 01/02/2025 4:28 PM CDT [facility] BASOPHILS 0.4 0.0 - 1.0 % 01/02/2025 4:28 PM CDT [facility] IMMATURE GRANULOCYTE 0.5(H) 0.0 - 0.4 % 01/02/2025 4:28 PM CDT [facility] Comment:Immature Granulocyte s includes Metamyelocytes, Myelocytes, and Promyelocytes. ABSOLUTE NEUTROPHILS 8.76(H) 1.60 - 7.70 10(3)/[facility] 01/02/2025 4:28 PM CDT [facility] ABSOLUTE LYMPHOCYTES 1.74 1.30 - 3.20 10(3)/[facility] 01/02/2025 4:28 PM CDT [facility] ABSOLUTE MONOCYTES 0.75 0.20 - 1.00 10(3)/[facility] 01/02/2025 4:28 PM CDT [facility] ABSOLUTE EOSINOPHIL 0.09 0.00 - 0.40 10(3)/[facility] 01/02/2025 4:28 PM CDT [facility] ABSOLUTE BASOPHILS 0.05 0.00 - 0.10 10(3)/[facility] 01/02/2025 4:28 PM CDT [facility] ABSOLUTE IMMATURE GRANULOCYTE 0.06(H) 0.00 - 0.03 10 (3) mcL. 01/02/2025 4:28 PM CDT [facility] NRBC PER 100 WBC 0 01/03/20 4:28 PM CDT [facility] Blood Venipuncture / Unknown 01/02/2025 3:33 PM CDT 01/02/2025 3:33 PM CDT us Wili Solomon MD HEMATOLOGY ORDERABLES Fi nal Result [facility] [address] [place] [address] * ERYTHROCYTE SEDIMENTATION RATE (ESR) (01/02/2025 3:33 PM CDT) ESR (SED RATE, ERYTHROCYTE SEDIMENTATION RATE) 3 <20 mm/h 01/02/2025 4:34 PM CDT [facility] Comment: Patients presenting with increased level of fibrinogen, gamma globulins, or abnormally shaped RBCs could affect the results for the erythrocyte sedimentation rate (ESR). Results should be clinically correlated. Blood Venipuncture / Unknown 01/02/2025 3:33 PM CDT 01/02/2025 3:33 PM CDT Wili Solomon MD HEMATOLOGY ORDERABLES Fi nal Result Performing Organization Address City/[facility]/ZIP Co de Phone Number [facility] [address] [place] [address] * PROTEIN S ACTIVITY (01/02/2025 3:33 PM CDT) PROTEIN S ACTIVITY 91.0 65 - 129 % 01/04/2025 11:16 AM CDT [facility] Blood Venipuncture / Unknown 01/02/2025 3:33 PM CDT 01/02/2025 3:33 PM CDT Wili Solomon MD HEMATOLOGY ORDERABLES Fi nal Result [facility] [address] [place] [address], [place] * PROTEIN C ACTIVITY (01/02/2025 3:33 PM CDT) PROTEIN C ACTIVITY 149.0 79 - 175 % 01/04/2025 11:17 AM CDT [facility] Blood Venipuncture / Unknown 01/02/2025 3:33 PM CDT 01/02/2025 3:33 PM CDT Wili Solomon MD HEMATOLOGY ORDERABLES Fi nal Result Performing Organization Address City/[facility]/ZIP Co de Phone Number [facility] [address] [place] [address], [place] * FERRITIN (01/02/2025 3:33 PM CDT) FERRITIN 92 5 - 204 ng/mL 01/02/2025 5:03 PM CDT [facility] Blood Venipuncture / Unknown 01/02/2025 3:33 PM CDT 01/02/2025 3:33 PM CDT Wili Solomon MD CHEMISTRY ORDERABLES Fin al Result Performing Organization Address City/[facility] Co de Phone Number [facility] [address] [place] [address] * ANTI THROMBIN III ACTIVITY (01/02/2025 3:33 PM CDT) ANTITHROMBIN III 102 82 - 139 % 01/03/20 25 10:24 PM CDT [facility] Blood Venipuncture / Unknown 01/02/2025 3:33 PM CDT 01/02/2025 3:33 PM CDT Wili Solomon MD HEMATOLOGY ORDERABLES Fi nal Result Performing Organization Address City/[facility]/ZIP Co de Phone Number [facility] [address] [place] [address], [place] * ASHLEY SCREEN MULTIPLEX W/REFLEX ZITA (01/02/2025 3:33 PM CDT) ASHLEY SCR MULTIPLEX Negative Negative, See comment 01/02/2025 10:53 PM CDT [facility] Blood Venipuncture / Unknown 01/02/2025 3:33 PM CDT 01/02/2025 3:33 PM CDT Narrative [facility] - 01/02/2025 10:53 PM CDT Antibody testing was performed by multiplex flow immunoassay on the Actions platform. us Wili Solomon MD IMMUNOLOGY ORDERABLES Fi nal Result Performing Organization Address [facility] Co de Phone Number [facility] [address] [place] [address], [place] * CMP (COMPREHENSIVE METABOLIC PANEL) (12/27/2024 12:00 AM CDT) 12/27/2024 us Provider Scan CHEMISTRY ORDERABLES Final Resul t Performing Organization Address [facility] Co de Phone Number SCAN * COMPLETE BLOOD COUNT (CBC) WITH DIFF (12/27/2024 12:00 AM CDT) 12/27/2024 us Provider Scan HEMATOLOGY ORDERABLES Final Resu lt Performing Organization Address [facility] Co de Phone Number SCAN * ECHO GENERIC (12/25/2024 12:00 AM CDT) LV EF(estimated)% 63 RESULTING AGENCY 12/25/2024 us Provider Scan IMG ECHO ORDERABLES Final Result Performing Organization Address [facility] Co de Phone Number RESULTING AGENCY * US - ABDOMEN/PELVIS (12/24/2024 12:00 AM CDT) 12/24/2024 us Provider Scan IMG US ORDERABLES Final Result Performing Organization Address [facility] Co de Phone Number SCAN * CT - ABDOMEN/PELVIS (12/24/2024 12:00 AM CDT) 12/24/2024 us Provider Scan IMG CT ORDERABLES Final Result SCAN * SURGERY CONSULT (12/24/2024 12:00 AM CDT) 12/24/2024 us Provider Scan GENERIC SCAN ORDERS CONSULT Brit l Result SCAN * URINALYSIS (UA) RANDOM (12/24/2024 12:00 AM CDT) 12/24/2024 us Provider Scan URINE ORDERABLES Final Result Performing Organization Address [facility] Hospital/ZIP Co de Phone Number SCAN from Last 3 Months Insurance MEDICAID [facility] Care Teams State Inspector Relationship Specialty Start Date End Date Mervin Kevin MD [address] [address] PCP - General Family Medicine 11/21/24
--- OUTSIDE RECORDS SUMMARY | 2025-03-25 09:46 | XMS_ITS | Clinical Summary ---
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
--- OUTSIDE RECORDS SUMMARY | 2025-03-25 09:46 | XMS_ITS | Clinical Summary ---
Author Organization [facility] Address [address] [place] [address] Care Team Providers Care Supervisor Inspection And Testing Name Role Phone Mervin Kevin MD Primary Care Provider [phone] Source Comments [facility],non-owned Affiliates and Associated Physician Practices is amultiple site organization consisting of ambulatory clinics and hospital sitesin [place], [place], [place] and [place]. This disclosure is being madepursuant to the Care Everywhere program and may not contain all information available regarding this patient. Last updated 18.[facility] Allergies Active Allergy Reactions Criticality Noted Date [...] days then stop 42 tablet 1 Active ferrous sulfate 325 (65 FE) MG [...] on the tongue 14 tablet 4 Active Eliquis 5 MG tablet Take 1 (one) tablet by mouth 2 times daily 5 Active escitalopram (Lexapro) 10 MG tablet Active fluticasone propionate (Flonase) 50 MCG/ACT nasal spray [place] 2 (two) sprays into the nose once daily Active Accu-Chek Guide test strip 2 times daily 5 Active HYDROcodone-ac etaminophen ([place]) 5-325 MG tablet Take 1 (one) tablet by mouth every 6 hours as needed pain 5 Active Hydrocortisone , Perianal, 1 % CREA APPLY TOPICALLY 1 APPLICATION TO AFFECTED AREA DAILY 5 Active ondansetron (Zofran) 4 MG tablet TAKE 1 TABLET BY MOUTH EVERY 8 HOURS NEEDED FOR NAUSEA AND VOMITING FOR 7 DAYS 5 Active loperamide (Imodium) 2 MG capsule PLEASE SEE ATTACHED FOR DETAILED DIRECTIONS Active vitamin D, ergocalciferol , (Drisdol) 1.25 MG (41525 UT) capsule TAKE 1 CAPSULE BY MOUTH ONE TIME PER WEEK 5 Active fluconazole (Diflucan) 150 MG tablet Take 1 (one) tablet by mouth once FOR 1 DOSE. 5 Active Active Problems Patient Care Coordination No te Formatting of this note migh t be different from the original. 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 Her initial score [...] symptoms. Recommend 3rd trimester neonatology consult at [facility] due to psychiatric medications, if [...] from the original note were not included. [facility] PATIENT--PLEASE CALL [phone] (ex 2) IF TRIAGED OR ADMITTED Care Provider: Dr. Erasmo Wood [facility] Care [facility] consultants involved: RN-Rosana/Jayce; MFM-Vitor; Cleft Team-Kamila Mojica; Josefina-Vitor Diagnosis: Cleft Lip & Palate follow up: per Cleft Team consult 9.10: Family will call to schedule a visit with the cleft palate team after the baby is born. 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 Order can be placed by genetic counselor in baby's chart at that time. Please request Genetics consult postnatally if clinically indicated by calling the Genetics office at [phone] prior to ordering genetic studies. 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 Gender Identity Female 02/21/2024 3:10 PM CDT [...] Oxygen Concentration 21% 06/30/2018 8 :39 AM RATTLING MACHINE TENDER Weight 73 kg (161 lb) 01/16/2025 12:00 [...] SMEAR 11/24/2021 11/24/2018 COVID-19 VACCINE (4 - 2024-2 6 season) 2025 10/09/2021, 04/20/2021, 03/30/2021 INFLUENZA VACCINE (#1) 2025 9, 04/27/2018 DTAP/TDAP/TD VACCINES (2 - T [...] track( 019 9:25 AM CDT) Perri Thapa, MALKA Note: Expected end date: ongoing Interventions: Take [...] Reactive Non Reactive 11/24/2018 3:32 PM CDT [facility] Blood BLOOD SPECIMEN / Unknown Venipuncture / Unknown 11/24/2018 2:32 PM CDT 11/24/2018 2:35 PM CDT Narrative [facility] - 11/24/2018 3:32 PM CDT No Laboratory evidence of HIV infection. Alondra Saxena DO LAB - CHEMISTRY ORDERAB LES Final Result [facility] [address] [place] [address] * PAP LB RFLX HPV ASCU (11/24/2018 2:32 PM CDT) Diagnosis Comment 11/29/2018 11:13 AM CDT [facility] ([facility]) Comment:NEGATIVE FOR INTRAEP ITHELIAL LESION OR MALIGNANCY. Specimen Adequacy Comment 019 11:13 AM CDT [facility] ([facility]) Comment: Satisfactory for evaluation. Endocervical and/or squamous metaplastic cells (endocervical component) are present. Performed by Comment 11/29/2018 11:13 AM CDT [facility] ([facility]) Comment:Aamir Miller chnologist (ASCP) Comment . 11/29/2018 11:13 AM CDT [facility] ([facility]) Note Comment 11/29/2018 11:13 AM CDT [facility] ([facility]) Comment: The Pap smear is a screening test designed to aid in the detection of premalignant and malignant conditions of the uterine cervix. It is not a diagnostic procedure and should not be used as the sole means of detecting cervical cancer. Both false-positive and false-negative reports do occur. Note Comment 11/29/2018 11:13 AM CDT [facility] ([facility]) Comment: The HPV DNA reflex criteria were not met with this specimen result therefore, no HPV testing was performed. Pathology/Cytolo gy ENTIRE ENDOCERVIX / Unknown Collection / Unknown 11/24/2018 2:32 PM CDT 11/25/2018 7:38 AM CDT [facility] ([facility]) - 11/29/2018 11:13 AM CDT Performed at: [address] [place] [id number] Home Health Lvn: Fe Cruz MD, Phone: [phone] Specimen Comment: Source.............Cervix;Endocervix Specimen Comment: No. of containers..01 ThinPrep Vial Alondra Saxena DO LAB - PATHOLOGY/CYTOLOG Y ORDERABLES Final Result [facility] ([facility]) [address] [place] [address] * HEPATITIS C ANTIBODY (11/24/2018 2:32 PM CDT) Pathologist [facility] HCV Antibody Screen Non Reactive Non Reactive 11/24/2018 4:08 PM CDT [facility] HCV S/C Ratio 0.13 0.00 - 0.79 11/24/2018 4:08 PM CDT [facility] Comment: Glgqde-mx-ccjlvu ratio (S/CO) <0.80: Non Reactive Blood BLOOD SPECIMEN / Unknown Venipuncture / Unknown 11/24/2018 2:32 PM CDT 11/24/2018 2:36 PM CDT Narrative [facility] - 11/24/2018 4:08 PM CDT Non Reactive - Antibodies to Hepatitis C virus (HCV) were not detected, result does not exclude early acute HCV infection. Alondra Saxena DO LAB - CHEMISTRY ORDERAB LES Final Result [facility] [address] [place] [address] from Last 3 Months or Most Recently Relevant to Health Maintenance Insurance MEDICAID - [place] Advance Directives * Full Code (Latest Code Status on File) Date Activated Date Inactivated Comments 06/28/2018 1:00 PM 06/30/2018 1:33 PM Care Teams Supervisor Inspection And Testing Relationship Specialty Start Date End Date Mervin Kevin MD [address] [place] [id number] PCP - General Family Medicine 12/29/17
--- OUTSIDE RECORDS SUMMARY | 2025-03-25 09:46 | XMS_ITS ---
Author Organization [facility] Address [address] [place] [address] Phone Care Team Providers Care Donations Attendant Name Role Phone Mervin Kevin MD Primary Care Provider [phone] Mirtha Chronic Condition Monitoring Status:Enrolled (Active) Start date:01/15/2025 Enrollment date:01/15/2025 Related social drivers of health:Social Connections, Alcohol Use, Tobacco Use, Financial Resource Strain, Stress, Physical Activity,Food Insecurity, Transportation Needs, Housing Stability, Utilities Related service episodes:[facility] Service Episode (Closed) Continued Care and Services Coordination
--- OUTSIDE RECORDS SUMMARY | 2025-03-25 09:46 | XMS_ITS | Clinical Summary ---
Author Organization [facility] Address [address] [place] [address] Care Team Providers Care Distribution Center Manager Name Role Phone Mervin Kevin MD Primary Care Provider [phone] Allergies Active Allergy Reactions Criticality Noted Date Comments Nitrofurantoin Anaphylaxis High 12/29/2017 Medications calcium carbonate-vitam in D3 (Oysco 500/D) 1,250mg (500mg elemental) - 5 mcg (200 units) per tabletIndicatio ns:Palpitations Take 1 tablet by mouth daily Active ferrous sulfate 325 mg (65 mg of elemental iron) tabletIndicatio ns:Palpitations Take 1 tablet (325 mg total) by mouth daily Active dilTIAZem (CARDIZEM) 30 mg tabletIndicatio ns:Palpitations Take 1 tablet (30 mg total) by mouth 2 (two) times a day 4 Active metroNIDAZOLE (FLAGYL) 500 mg tabletIndicatio ns:Palpitations TAKE 1 TABLET BY MOUTH EVERY 8 HOURS FOR 2 WEEKS 5 Active tetracycline (ACHROMYCIN,SUM YCIN) 500 mg capsuleIndicati ons:Palpitation s TAKE 1 TABLET BY MOUTH 4 TIMES DAILY FOR 2 WEEKS 5 Active cyclobenzaprine (FLEXERIL) 10 mg tabletIndicatio ns:Palpitations Take 1 tablet (10 mg total) by mouth nightly as needed 3 Active sertraline (ZOLOFT) 50 mg tabletIndicatio ns:Palpitations TAKE 1 TABLET BY MOUTH EVERY DAY AFTER A MEAL Active hydrocortisone acetate (Vanicream HC) 1 % creamIndication s:Palpitations 2 (two) times a day as needed 5 Active acetaminophen (TYLENOL) 500 mg tabletIndicatio ns:Palpitations Take 1 tablet (500 mg total) by mouth every 4 (four) hours as needed 4 Active ipratropium (ATROVENT) 42 mcg (0.06 %) nasal sprayIndication s:Palpitations SPRAY 1 SPRAY 4 TIMES A DAY BY INTRANASAL ROUTE NEEDED. 3 Active apixaban (ELIQUIS) 5 mg tabletIndicatio ns:Palpitations Take 1 tablet (5 mg total) by mouth 2 (two) times a day 5 Active albuterol HFA (PROVENTIL HFA,VENTOLIN HFA,PROAIR HFA) 90 mcg/actuation inhalerIndicati ons:Palpitation s INHALE 1 PUFF EVERY 4 HOURS NEEDED 8 Active ondansetron (ZOFRAN) 4 mg tabletIndicatio ns:Palpitations 4 MG ORALLY EVERY 6-8 HOURS NEEDED FOR NAUSEA AND VOMITING 5 Active fluconazole (DIFLUCAN) 150 mg tabletIndicatio ns:Palpitations Take 1 tablet (150 mg total) by mouth once 5 Active ergocalciferol (VITAMIN D) 50,000 unit capsuleIndicati ons:Palpitation s Take 1 capsule (50,000 Units total) by mouth once a week 5 Active omeprazole (PriLOSEC) 40 mg capsuleIndicati ons:Palpitation s Take 1 capsule (40 mg total) by mouth daily 3 Active valACYclovir (VALTREX) 500 mg tabletIndicatio ns:Palpitations Take 1 tablet (500 mg total) by mouth daily 8 Active escitalopram (LEXAPRO) 10 mg tabletIndicatio ns:Palpitations Acti ve famotidine (PEPCID) 20 mg tabletIndicatio ns:Palpitations Take 1 tablet (20 mg total) by mouth daily 3 Active metoprolol XL (TOPROL-XL) 50 mg extended release tabletIndicatio ns:Palpitations Take 1 tablet (50 mg total) by mouth 2 (two) times a day 2 Active diphenhydrAMINE 25 mg capsuleIndicati ons:Palpitation s Take 1 tablet/capsule (25 mg total) by mouth every 6 (six) hours as needed Active fluticasone propion-salmete roL (ADVAIR DISKUS) 250-50 mcg/dose diskus inhalerIndicati ons:Palpitation s Inhale 1 puff twice a day by inhalation route. 5 Active SUMAtriptan (IMITREX) 25 mg tabletIndicatio ns:Palpitations Take 1 tablet (25 mg total) by mouth Active methylPREDNISol one (MEDROL DOSEPACK) 4 mg Dosepack Take as directed on package 1 packet 5 02/27/20 25 Active Problems No known active problems Encounters Date Type Department Care Team Description 02/20/2025 11:59 AM CDT - 02/20/2025 2:21 PM CDT Emergency [address] [address] Left foot pain (Primary Dx) Discharge Disposition: Discharge to home or self care 02/20/2025 8:00 AM CDT - 02/20/2025 11:59 PM CDT [facility] Card[facility] [address] [place] [address] Palpitations Discharge Disposition: Discharge to home or self care 02/07/2025 Telephone [facility] Medical [facility] Cardiology [address] [place] [phone] Pepper Pimentel MD holter 02/05/2025 1:45 PM CDT Ancillary Procedure [facility] Cardiology [address] [place] [place] [phone] Palpitations 02/05/2025 12:30 PM CDT Office Visit [facility] Cardiology [address] [place] [phone] Pepper Pimentel MD Palpitations (Primary Dx) from Last 3 Months Surgical History Surgery Date Site/Laterality Comments TUBAL LIGATION 2022 SECTION 2015 and 2019 Medical History Medical History Date Comments Asthma Migraines 2008 GERD (gastroesophageal reflux disease) 2008 Autoimmune disease 2007 Anemia 2008 Emphysema of lung 2017 Osteoporosis 2010 Chronic bronchitis (HCC) 2014 Social History Tobacco Use Types Packs/Day Years Used Date Smoking Tobacco: Former Cigarettes 2 20 0 06/28/2004 - 02/25/2021 Smokeless Tobacco: Never Tobacco Cessation:Counseling Given: Not Answered Personal Safety Answer Date Recorded Have you ever been in or are you currently in a harmful physical or emotional relationship or is someone making you feel afraid or unsafe? Denies 02/20/2025 Comments No Sex and Gender Information Value Date Recorded Sex Assigned at Not on file Legal Sex Female 4:55 AM JOB [employer] Gender Identity Not on file Sexual Orientation Not on file Obstetrics History Last Filed Vital Signs Vital Sign Reading Time Taken Comments Blood Pressure 119/83 02/20/2025 1:55 PM CDT Pulse 59 02/20/2025 1:55 PM CDT Temperature 36.3 C (97.3 F) 02/20/2025 8:48 AM CDT Respiratory Rate 20 02/20/2025 1:55 PM CDT Oxygen Saturation 100% 02/20/2025 1:55 PM CDT Inhaled Oxygen Concentration - - Weight 72.1 kg (159 lb) 02/05/2025 12:38 PM CDT Height 170.2 cm (5' 7) 02/20/2025 8:48 AM CDT Body Mass Index 24.9 03/18/2021 11:40 AM CDT Plan of Treatment Health Maintenance Due Date Last Done Comments Depression Screening 1990 Hepatitis C Screening 1990 Varicella Vaccines (1 of 2 - 13+ 2-dose series) 11/23/2003 Hepatitis B Screening 2008 Regular Well Visit/Exam 18-64 2008 HPV Vaccines (1 - 3-dose SCDM series) 2017 Cervical Cancer Screening 11/25/2019 11/24/2018 Pneumococcal vaccine <65 (2 of 2 - PCV) 09/02/2023 09/01/2022 Covid-19 Vaccine ( - 2024- season) 2025 10/09/2021, 04/20/2021, 03/30/2021 Influenza Vaccine (#1) 2025 04/11/2019, 2017 DTaP/Tdap/Td Vaccine (3 - Td or Tdap) 09/05/202905/2020, 04/06/2018 Procedures Procedure Name Priority Date/Time Associated Diagnosis Comments XR SACRUM COCCYX 2 OR MORE VIEWS ED 02/20/2025 10:28 AM CDT XR FOOT LEFT 3 OR MORE VIEWS ED 02/20/2025 10:28 AM CDT XR ANKLE LEFT 3 OR MORE VIEWS ED 02/20/2025 10:28 AM CDT TRANSTHORACIC ECHO (TTE) COMPLETE W DOPPLER/CF WO CONTRAST Routine 02/20/2025 8:51 AM CDT Palpitations EXTENDED/CARE HOME HOLTER PATCH (8 DAYS UP TO 15 DAYS) Routine 02/05/2025 1:27 PM CDT Palpitations ECG 12-LEAD Routine 02/05/2025 12:41 PM CDT Palpitations from Last 3 Months Results * XR Foot Left 3 or More Views (02/20/2025 10:28 AM CDT) Anatomical Region Laterality Modality Lower Extremities, Foot Left Computed Radiography 02/20/2025 11:3 1 AM CDT Narrative 02/20/2025 11:37 AM CDT EXAM DESCRIPTION: XR FOOT LEFT 3 OR MORE VIEWS; XR ANKLE LEFT 3 OR MORE VIEWS REASON FOR STUDY: Left foot and ankle pain after fall today. Twisting injury. TECHNIQUE: Three views of the left foot and three views of the left ankle COMPARISON: None FINDINGS: BONES/JOINTS: Small calcification along the dorsal posterior aspect of the navicular on the lateral view. No dislocation. Lucency in the medial talar dome measuring 5 mm. Minimal diffuse interphalangeal joint osteoarthritis. Mild osteoarthritis of the 1st metatarsophalangeal joint. The ankle mortise is preserved. SOFT TISSUES: Within normal limits. IMPRESSION: 1. Small calcification along the dorsal posterior aspect of the navicular on the lateral view may represent a small avulsion fracture. This is age indeterminate. Correlation with point tenderness is recommended. 2. Lucency in the medial talar dome measuring 5 mm may represent an osteochondral lesion. THIS IS AN ELECTRONICALLY VERIFIED FINAL REPORT 02/20/2025 11:37 AM - Electronically signed by Papo HADDAD T: Report ID: [id number] Reading Location: [id number] Procedure Note Papo Zheng MD - 02/20/2025 EXAM DESCRIPTION: XR FOOT LEFT 3 OR MORE VIEWS; XR ANKLE LEFT 3 OR MORE VIEWS REASON FOR STUDY: Left foot and ankle pain after fall today. Twistinginjury. TECHNIQUE: Three views of the left foot and three views of the left ankle COMPARISON: None FINDINGS: BONES/JOINTS: Small calcification along the dorsal posterioraspect of the navicular on the lateral view. No dislocation. Lucency in themedial talar dome measuring 5 mm. Minimal diffuse interphalangeal joint osteoarthritis. Mild osteoarthritis of the 1st metatarsophalangeal joint. The ankle mortise is preserved. SOFT TISSUES: Within normal limits. IMPRESSION: 1. Small calcification along the dorsal posterior aspect of thenavicular on the lateral view may represent a small avulsion fracture. This is age indeterminate. Correlation with point tenderness is recommended. 2. Lucency in the medial talar dome measuring 5 mm may represent an osteochondral lesion. THIS IS AN ELECTRONICALLY VERIFIED FINAL REPORT 02/20/2025 11:37 AM - Electronically signed by Papo HADDAD T: Report ID: [id number] Reading Location: [id number] Johann Fox DO IMG XR PROCEDURES Final Result * XR Ankle Left 3 or More Views (02/20/2025 10:28 AM CDT) Anatomical Region Laterality Modality Lower Extremities, Ankle Left Compute d Radiography 02/20/2025 11:3 1 AM CDT Narrative 02/20/2025 11:37 AM CDT EXAM DESCRIPTION: XR FOOT LEFT 3 OR MORE VIEWS; XR ANKLE LEFT 3 OR MORE VIEWS REASON FOR STUDY: Left foot and ankle pain after fall today. Twisting injury. TECHNIQUE: Three views of the left foot and three views of the left ankle COMPARISON: None FINDINGS: BONES/JOINTS: Small calcification along the dorsal posterior aspect of the navicular on the lateral view. No dislocation. Lucency in the medial talar dome measuring 5 mm. Minimal diffuse interphalangeal joint osteoarthritis. Mild osteoarthritis of the 1st metatarsophalangeal joint. The ankle mortise is preserved. SOFT TISSUES: Within normal limits. IMPRESSION: 1. Small calcification along the dorsal posterior aspect of the navicular on the lateral view may represent a small avulsion fracture. This is age indeterminate. Correlation with point tenderness is recommended. 2. Lucency in the medial talar dome measuring 5 mm may represent an osteochondral lesion. THIS IS AN ELECTRONICALLY VERIFIED FINAL REPORT 02/20/2025 11:37 AM - Electronically signed by Papo HADDAD T: Report ID: [id number] Reading Location: [id number] Procedure Note Papo Zheng MD - 02/20/2025 EXAM DESCRIPTION: XR FOOT LEFT 3 OR MORE VIEWS; XR ANKLE LEFT 3 OR MORE VIEWS REASON FOR STUDY: Left foot and ankle pain after fall today. Twistinginjury. TECHNIQUE: Three views of the left foot and three views of the left ankle COMPARISON: None FINDINGS: BONES/JOINTS: Small calcification along the dorsal posterioraspect of the navicular on the lateral view. No dislocation. Lucency in themedial talar dome measuring 5 mm. Minimal diffuse interphalangeal joint osteoarthritis. Mild osteoarthritis of the 1st metatarsophalangeal joint. The ankle mortise is preserved. SOFT TISSUES: Within normal limits. IMPRESSION: 1. Small calcification along the dorsal posterior aspect of thenavicular on the lateral view may represent a small avulsion fracture. This is age indeterminate. Correlation with point tenderness is recommended. 2. Lucency in the medial talar dome measuring 5 mm may represent an osteochondral lesion. THIS IS AN ELECTRONICALLY VERIFIED FINAL REPORT 02/20/2025 11:37 AM - Electronically signed by Papo Zheng M.D. LB T: Report ID: [id number] Reading Location: [id number] Johann Fox DO IMG XR PROCEDURES Final Result * XR Sacrum Coccyx 2 or More Views (02/20/2025 10:28 AM CDT) Anatomical Region Laterality Modality Pelvis, Body N/A Computed Radiogr aphy 02/20/2025 11:2 2 AM CDT Narrative 02/20/2025 11:31 AM CDT EXAM DESCRIPTION: XR SACRUM COCCYX 2 OR MORE VIEWS REASON FOR STUDY: Pelvic pain after fall. TECHNIQUE: AP sacrum, AP coccyx, lateral sacrum/coccyx views COMPARISON: Lumbar spine radiographs 09/22/2012 FINDINGS: BONES/JOINTS: No acute fracture or dislocation. The joint spaces are normal. SOFT TISSUES: Phleboliths project over the pelvis. IMPRESSION: 1. No acute osseous abnormality. THIS IS AN ELECTRONICALLY VERIFIED FINAL REPORT 02/20/2025 11:31 AM - Electronically signed by Papo Zheng M.D. LB T: Report ID: [id number] Reading Location: [id number] Procedure Note Papo Zheng MD - 02/20/2025 EXAM DESCRIPTION: XR SACRUM COCCYX 2 OR MORE VIEWS REASON FOR STUDY: Pelvic pain after fall. TECHNIQUE: AP sacrum, AP coccyx, lateral sacrum/coccyx views COMPARISON: Lumbar spine radiographs 09/22/2012 FINDINGS: BONES/JOINTS: No acute fracture or dislocation. The jointspaces are normal. SOFT TISSUES: Phleboliths project over the pelvis. IMPRESSION: 1. No acute osseous abnormality. THIS IS AN ELECTRONICALLY VERIFIED FINAL REPORT 02/20/2025 11:31 AM - Electronically signed by Papo Zheng M.D. LB T: Report ID: [id number] Reading Location: [id number] Johann Fox DO IMG XR PROCEDURES Final Result * TRANSTHORACIC ECHO (TTE) COMPLETE W DOPPLER/CF WO CONTRAST (02/20/2025 8:51 AM CDT) Estimated EF 60-65 % CONS SCIMAGE EF Mod BP 66 % CONS SCIMAGE Anatomical Region Laterality Modality Ultrasound 02/20/2025 8:15 AM CDT Narrative 02/22/2025 10:08 AM CDT Transthoracic Echocardiographic Report Patient Name: DANNA HANNA D : 1990 (34y 2m) Sex: F Study Date: 02/20/2025 08:15:53 AM Ht(Inch): 67 Wt(Lb): 159 BSA: 1.85 Crepe Maker: Jo Gamble RDCS Order Provider: PEPPER PIMENTEL Heart Rate: 58 BMI: 24.9 BP: 98 / 54 Ref Provider: PEPPER PIMENTEL PROCEDURES: Echocardiographic Report: ([id number]) Transthoracic complete echo, 2D, spectral and tissue Doppler, color flow Doppler, M-mode. INDICATIONS: Palpitations. FINDINGS: Left Ventricle: Normal left ventricular cavity size. Normal Left ventricular wall thickness. The Ejection Fraction (Monteiro's) is measured at 66 %. The Ejection Fraction is visually estimated to be 60-65 %. Right Ventricle: Normal right ventricular size. Normal right ventricular systolic function. Left Atrium: The left atrium is normal in size. Right Atrium: The right atrium is normal in size. Mitral Valve: Normal mitral valve leaflet structure. Mitral Valve appears to be grossly normal. Aortic Valve: Trileaflet aortic valve. No aortic valve stenosis. Tricuspid Valve: There is trace tricuspid regurgitation. The estimated right ventricular systolic pressure is 12 mmHg. Pulmonic Valve: Pulmonic Valve not well visualized due to poor echo windows. Pericardium: Normal pericardium without evidence of pericardial effusion. No pericardial effusion. Aorta: Normal aortic root. IVC: The estimated RA pressure is 3 mmHg. CONCLUSIONS: 1. The Ejection Fraction (Monteiro's) is measured at 66 %. The Ejection Fraction is visually estimated to be 60-65 %. 2. Normal left ventricular size and function. 3. RV appears normal size and function. 4. No critical or significant valve dysfunction. 5. IVC is normal size and collapse. MEASUREMENTS: 2D/MM Value Range Doppler Value LVIDd 2D 4.73 cm [ 3.50 - 5.70 ] AV Peak Praveen 1.06 m/s LVIDs 2D 3.07 cm [ 3.10 - 4.60 ] AV Peak PG 4.49 mmHg IVSd 2D 0.60 cm [ 0.60 - 1.20 ] LVOT Peak Praveen 1.00 m/s LVPWd 2D 0.66 cm [ 0.60 - 1.10 ] LVOT Peak PG 4.00 mmHg LV Thickness Ratio 0.91 LVOT Diam 2.00 cm LV Mass 2D 94.76 g JUDD Vmax 2.96 cm2 LV Mass Index 2D 51.32 g/m2 MV E Peak Praveen 0.78 m/s RWT 0.28 MV A Peak Praveen 0.33 m/s EDV Mod BP 89.30 ml [ 46.00 - 106.00 ] MV E/A 2.40 ratio LV EDV Index 48.36 ml/m2 MV Decel Time 177.00 msec ESV Mod BP 30.30 ml [ 14.00 - 42.00 ] Med E` Praveen 0.10 m/s EF Mod BP 66 % [ 54 - 74 ] Lat E` Praveen 0.15 m/s Visually Estimated EF 60-65 % Average E/E` 624.00 LA Dimension 2D 3.40 cm [ 1.90 - 4.00 ] TV Peak Praveen 0.44 m/s LA Length 2C 4.75 cm TV Peak PG 0.77 mmHg LA Length 4C 5.02 cm RV S` 11.00 cm/sec LA Volume BP 36.50 ml TR Peak Praveen 1.51 m/s LA Volume Index 19.77 ml/m2 [ 16.00 - 34.00 ] TR Peak PG 9.1 mmHg IVC Diam 1.97 cm RA Pressure 3.00 mmHg AoR Diam 2D 3.10 cm [ 2.00 - 3.70 ] RVSP 12.10 mmHg Ao Root Index 1.68 cm/m2 [ 1.00 - 2.00 ] PV Peak Praveen 1.02 m/s PV Peak PG 4.16 mmHg - ATTESTATION: I have reviewed and interpreted the pertinent images and measurements of this study. I attest to the conclusions in the final report that is provided above. DISCLAIMER: The study images and the final report will be retained in the patient chart by the [facility] for the legally required time period. This chart constitutes the legal record of any testing performed. Electronically Signed By: Ismael Curiel MD 02/22/2025 10:07:40 AM CDT Procedure Note Ismael Curiel MD - 02/22/2025 Transthoracic Echocardiographic Report Patient Name: DANNA HANNA D : 1990 (34y 2m) Sex: F Study Date: 02/20/2025 08:15:53 AM Ht(Inch): 67 Wt(Lb): 159 BSA: 1.85 Crepe Maker: Jo Gamble RDCS Order Provider: PEPPER PIMENTEL Heart Rate: 58 BMI: 24.9 BP: 98 / 54 Ref Provider: PEPPER PIMENTEL PROCEDURES: Echocardiographic Report: ([id number]) Transthoracic complete echo, 2D,spectral and tissue Doppler, color flow Doppler, M-mode. INDICATIONS: Palpitations. FINDINGS: Left Ventricle: Normal left ventricular cavity size. Normal Leftventricular wall thickness. The Ejection Fraction (Monteiro's) is measured at 66 %. TheEjection Fraction is visually estimated to be 60-65 %. Right Ventricle: Normal right ventricular size. Normal right ventricularsystolic function. Left Atrium: The left atrium is normal in size. Right Atrium: The right atrium is normal in size. Mitral Valve: Normal mitral valve leaflet structure. Mitral Valve appearsto be grossly normal. Aortic Valve: Trileaflet aortic valve. No aortic valve stenosis. Tricuspid Valve: There is trace tricuspid regurgitation. The estimatedright ventricular systolic pressure is 12 mmHg. Pulmonic Valve: Pulmonic Valve not well visualized due to poor echowindows. Pericardium: Normal pericardium without evidence of pericardial effusion.No pericardial effusion. Aorta: Normal aortic root. IVC: The estimated RA pressure is 3 mmHg. CONCLUSIONS: 1. The Ejection Fraction (Monteiro's) is measured at 66 %. The EjectionFraction is visually estimated to be 60-65 %. 2. Normal left ventricular size and function. 3. RV appears normal size and function. 4. No critical or significant valve dysfunction. 5. IVC is normal size and collapse. MEASUREMENTS: 2D/MM Value Range DopplerValue LVIDd 2D 4.73 cm [ 3.50 - 5.70 ] AV Peak Vel1.06 m/s LVIDs 2D 3.07 cm [ 3.10 - 4.60 ] AV Peak PG4.49 mmHg IVSd 2D 0.60 cm [ 0.60 - 1.20 ] LVOT PeakVel 1.00 m/s LVPWd 2D 0.66 cm [ 0.60 - 1.10 ] LVOT Peak PG4.00 mmHg LV Thickness Ratio 0.91 LVOT Diam2.00 cm LV Mass 2D 94.76 g JUDD Vmax2.96 cm2 LV Mass Index 2D 51.32 g/m2 MV E PeakVel 0.78 m/s RWT 0.28 MV A PeakVel 0.33 m/s EDV Mod BP 89.30 ml [ 46.00 - 106.00 ] MV E/A2.40 ratio LV EDV Index 48.36 ml/m2 MV DecelTime 177.00 msec ESV Mod BP 30.30 ml [ 14.00 - 42.00 ] Med E` Vel0.10 m/s EF Mod BP 66 % [ 54 - 74 ] Lat E` Vel0.15 m/s Visually Estimated EF 60-65 % Average E/E`624.00 LA Dimension 2D 3.40 cm [ 1.90 - 4.00 ] TV Peak Vel0.44 m/s LA Length 2C 4.75 cm TV Peak PG0.77 mmHg LA Length 4C 5.02 cm RV S`11.00 cm/sec LA Volume BP 36.50 ml TR Peak Vel1.51 m/s LA Volume Index 19.77 ml/m2 [ 16.00 - 34.00 ] TR Peak PG9.1 mmHg IVC Diam 1.97 cm RA Pressure3.00 mmHg AoR Diam 2D 3.10 cm [ 2.00 - 3.70 ] RVSP12.10 mmHg Ao Root Index 1.68 cm/m2 [ 1.00 - 2.00 ] PV Peak Vel1.02 m/s PV Peak PG 4.16 mmHg - ATTESTATION: I have reviewed and interpreted the pertinent images and measurements ofthis study. I attest to the conclusions in the final report that is provided above. DISCLAIMER: The study images and the final report will be retained in the patientchart by the [facility] for the legally required time period. This chart constitutesthe legal record of any testing performed. Electronically Signed By: Ismael Curiel MD 02/22/2025 10:07:40 AM CDT Pepper Pimentel MD CV ECHO PROCEDURES Final Result * Extended/Mcc Holter Patch (8 days up to 15 days) (02/05/2025 1:27 PM CDT) Anatomical Region Laterality Modality Electrocardiogra phy Narrative 03/19/2025 8:41 PM CDT Cardiac Rhythm Monitor Report Monitor duration: 14 days of which diagnostic is >9days Study Description: Predominate rhythm is sinus with average HR of 77 bpm (range 39-150 during SR bpm) PAC burden: <1% PVC burden: <1% Atrial fibrillation/Flutter: None Symptom triggered events: 1 episode of Sinus tachycardia Asymptomatic events: 2 episodes, of Atach, longest 15s, fastest 149 1 episode of NSVT, 5-6beat Conclusions: Normal Monitor Predominantly sinus rhythm at avg HR 77bpm No atrial fibrillation, atrial flutter, or clinically significant pauses noted No arrhythmogenic correlate of patient's symptoms. The results of the monitor were discussed with patient over the phone or during the clinic visit. Pepper Pimentel MD CV CARDIAC SERVICE S PROCEDURES Final Result * ECG 12 lead (02/05/2025 12:41 PM CDT) Pepper Pimentel MD ECG ORDERABLES Fi nal Result from Last 3 Months Insurance [facility] OTHER Address: [address] [place] [address] [employer] Care Teams Distribution Center Manager Relationship Specialty Start Date End Date Mervin Kevin MD PCP - General Emergency Medicine 02/22/22
== END 2025-03-25 09:16 | disposition home or self-care (01) ==
LOC: ANHLAB 09:17
PROVIDERS: PCP Emergency Medicine; Visit Provider Nurse Practitioner Family
DX: A04.8 Other specified bacterial intestinal infections (principal)
CPT/HCPCS: 83013

== ENCOUNTER 2025-04-24 00:49 | Day surgery (SDC) | payer OTHER, SELFPAY ==
--- OUTSIDE RECORDS SUMMARY | 2004-05-20 08:30 | XMS_ITS | Continuity of Care Document ---
Author Organization [facility] Address [address] [facility] [address] [place] [address] Phone Care Team Providers Care Metal Ceiling Builder Name Role Phone Rausch OD, Erasmo Unavailable Unavailable Advance Directives Directive Yes / No Effective Date File Name No Information Encounters Encounter Description Practice Location Reason(s) For Visit Diagnoses Date Provider Providers Copied on Encounter [facility], [address] [facility] [address], [place], [place], [id number], [place] tel:[phone] [facility] [place] No Information Apr- 4-200 4 Rausch OD Erasmo. [address] [facility] [place] , [address], [place], [address], [place]. tel:[phone] Family History Family Member Type Diagnosis Age At Onset No Information Payers Payer name Insurance type Covered constitution party ID Authoriza tion(s) Medicaid [facility] [id number] Social History Type Description Quantity Date Captured [...]
--- OUTSIDE RECORDS SUMMARY | 2023-09-14 05:45 | XMS_ITS | Continuity of Care Document ---
Author Organization [facility] Address [address] [address] Phone Care Team Providers Care Software Applications Architect Name Role Phone Pinky Daniels MD Unavailable [...] [facility], [address], [id number], [place] tel:[phone] [facility] No Information 0 4 Frances Cheshil. [address], [place], [address], [place]. tel:[phone] Referring Provider: Mervin Kevin, [address] [place] [address], [id number]. tel:[phone] Est (Level 4) OFFICE/OUTPA TIENT VISIT [facility], [address] [place] [address], [id number], [place] tel:[phone] [facility] allergy symptoms (chief complaint) Recurrent acute suppurative otitis media w/o spontaneous rupture of ear drum of earOther allergic rhinitisSevere persistent asthmaAbnormal results of function studies of other systemsShiprock-[facility] 2 3 Frances Cheshil. [address], [place], [address], [place]. tel:[phone] Referring Provider: Mervin Kevin, [address] [place] [address], [address]. tel:[phone] Est (Level 3) OFFICE/OUTPA TIENT VISIT [facility], [address] [place] [address], [id number], [place] tel:[phone] [facility] recurrent infections (chief complaint) Recurrent acute suppurative otitis media w/o spontaneous rupture of ear drum of earOther allergic rhinitisSevere persistent asthmaAbnormal results of function studies of other systems 0 3 Frances Cheshil. [address], [place], [address], [place]. tel:[phone] Referring Provider: Ruslan Reid, 2043 [facility] 15, [place], [address]. tel:[phone] Est (Level 4) OFFICE/OUTPA TIENT VISIT [facility], [address] [place] [address], [id number], [place] tel:[phone] [facility] recurrent infections (chief complaint) Recurrent acute suppurative otitis media w/o spontaneous rupture of ear drum of earSevere persistent asthmaOther allergic rhinitisAbnorma l results of function studies of other systems 3 Frances Cheshil. [address], [place], [address], [place]. tel:[phone] Referring Provider: Ruslan Reid, 2043 [facility] 15, [place], [address]. tel:[phone] New (Level 4) OFFICE/OUTPA TIENT VISIT [facility], [address] [place] [address], [id number], [place] tel:[phone] [facility] recurrent infections (chief complaint) Recurrent acute suppurative otitis media w/o spontaneous rupture of ear drum of earSevere persistent asthmaOther allergic rhinitis Fe-0 3 Frances Cheshil. [address], [place], [address], [place]. tel:[phone] Referring Provider: Ruslan Reid, 2043 [facility] 15, [place], [address]. tel:[phone] Family History Family Member Type Diagnosis Age At Onset Paternal aunt Problem rheumatoid arthritis Father Problem Allergic rhinitis Brother Problem Asthma Paternal aunt Problem Lupus erythematosus Sister Problem Asthma Paternal grandmother Problem Asthma Payers Payer name Insurance type Covered republican ID Authoriza timunir(s) [facility] [id number] Social History Type Description Quantity Date Captured Comments Alcohol Use Details Unknown Caffeine Use Details Unknown Tobacco Use Status No Information Smoking Status No Information Sex Female Chief Complaint And Reason For Visit No Information Reason For Referral Reason For Referral No Information Plan Of Treatment Date Type Action Status Future Order: Lab Order S. Pneum onia-23 Serotypes ([id number]), Sent on: Sent Future Order: Lab Order CBC With Diff (63 99), Sent on: Sent Future Order: Lab Order ESR ([id number]), Sent o n: Sent Future Order: Lab Order CRP ([id number]), Sent on: Sent Future Order: Lab Order Comprehe nsive Metabolic Panel ([id number]), Sent on: Sent Future Order: Lab Order CBC With Differential ([id number]), Sent on: Sent Future Order: Lab Order Compleme nt Total (CH50) ([id number]), Sent on: Sent Future Order: Lab Order Immunogl obulins A/E/G/M, Serum ([id number]), Sent on: Sent Future Order: Lab Order Mannose Binding Lectin ([id number]), Sent on: Sent Future Order: Lab Order Strep Pn eumo 23 ([id number]), Sent on: Sent Future Order: Lab Order T- and B -Lymphocyte and Natural Killer Cell Profile ([id number]), Sent on: Sent Future Order: Lab Order Tetanus/ Diphtheria Antibody Profile ([id number]), Sent on: Sent History Of Present Illness [...] protective(She had Pneumovax on 09/02/22)08/12/22IgIgA: 126IgM: 79IgE: 968QQ86: 58AH50: (deferred)Anti-Spn 23: decreased 02/16 = 65% protectiveAnti-Diphtheria: 0.1 (protective)Anti-Tetanus: 1.17 (protective)AEC: 215AANC: 16,641Flow CytometryCD3+: 56% (L), 1612 (wnl)CD3+CD4+: 35%, 6777GO1+CD8+: 26%, 772CD4/CD8 Ratio: 1.33CD16+CD56+: 32% (H), 912 (H)CD19+: 10%, (poor scan quality, best interpretation listed)IgG 995*IgG1 594*IgG2 270*IgG3 74*IgG4 74Environmental Immunocaps: +HDM, cockroach, grass, trees, weeds other than ragweed with total IgE [id number] Phenotype: PI*MMTB Quant Gold: negativeHRCT Chest on [...] are planning a colonoscopy future.Data08/12/22IgIgA: 126IgM: 79IgE: 274WW64: 58AH50: (deferred)Anti-Spn 23: decreased 02/16 = 65% protectiveAnti-Diphtheria: 0.1 (protective)Anti-Tetanus: 1.17 (protective)AEC: 215AANC: 16,641Flow CytometryCD3+: 56% (L), 1612 (wnl)CD3+CD4+: 35%, 7795FX1+CD8+: 26%, 772CD4/CD8 Ratio: 1.33CD16+CD56+: 32% (H), 912 (H)CD19+: 10%, (poor scan quality, best interpretation listed)IgG 995*IgG1 594*IgG2 270*IgG3 74*IgG4 74Environmental Immunocaps: +HDM, cockroach, grass, trees, weeds other than ragweed with total IgE [id number] Phenotype: MMTB Quant Gold: negativeHRCT Chest on [...] will see hematology next month.Data08/12/22IgIgA: 126IgM: 79IgE: 213QH96: 58AH50: (deferred)Anti-Spn 23: decreased 02/16 = 65% protectiveAnti-Diphtheria: 0.1 (protective)Anti-Tetanus: 1.17 (protective)AEC: 215AANC: 16,641Flow CytometryCD3+: 56% (L), 1612 (wnl)CD3+CD4+: 35%, 4744ET3+CD8+: 26%, 772CD4/CD8 Ratio: 1.33CD16+CD56+: 32% (H), 912 (H)CD19+: 10%, (poor scan quality, best interpretation listed)IgG 995*IgG1 594*IgG2 270*IgG3 74*IgG4 74Environmental Immunocaps: +HDM, cockroach, grass, trees, weeds other than ragweed with total IgE 394P8HX Phenotype: MMTB Quant Gold: negativeHRCT Chest on [...] weeds other than ragweed with total IgE [id number] Phenotype: MMTB Quant Gold: negativeHRCT Chest on [...]
[2025-04-19 10:40] VITALS: BMI 25.9
--- NOTE | 2025-04-19 12:51 | PC.NURSE ---
Pt thought office had told her to hold her Eliquis for 2 wks prior to procedure so she has not taken this med. since 04/10/2025. I explained to her that she did not need to stop it for 3 days. I have notified her other providers of this and they have indicated it is ok and to restart after EGD.
--- OUTSIDE RECORDS SUMMARY | 2025-04-24 00:52 | XMS_ITS ---
Author Organization [facility] Address [address] [place] [address] Phone Care Team Providers Care Automation Driver Name Role Phone Mervin Kevin MD Primary Care Provider [phone] Mirtha Chronic Condition Monitoring Status:Enrolled (Active) Start date:01/15/2025 Enrollment date:01/15/2025 Related social drivers of health:Social Connections, Alcohol Use, Tobacco Use, Financial Resource Strain, Stress, Physical Activity,Food Insecurity, Transportation Needs, Housing Stability, Utilities Related service episodes:Mirtha [facility] Service Episode (Closed) Continued Care and Services Coordination
--- OUTSIDE RECORDS SUMMARY | 2025-04-24 00:52 | XMS_ITS | Clinical Summary ---
Author Organization [facility] Address [address] [place] [address] Care Team Providers Care Geospatial Engineer Name Role Phone Mervin Kevin MD Primary Care Provider [phone] Source Comments [facility],non-owned Affiliates and Associated Physician Practices is amultiple site organization consisting of ambulatory clinics and hospital sitesin [place], [place], [place] and [place]. This disclosure is being madepursuant to the Care Everywhere program and may not contain all information available regarding this patient. Last updated 18.[facility] Allergies Active Allergy Reactions Criticality Noted Date [...] Active Additional Information Patient not taking.Reported on 04/17/2025 ondansetron, disintegrating , (Zofran ODT) 4 MG tablet Take 1 (one) tablet by mouth every 8 hours as needed for Nausea/Vomiting Allow tablet to dissolve on the tongue 14 tablet 4 Active Eliquis 5 MG tablet Take 1 (one) tablet by mouth 2 times daily 5 Active escitalopram (Lexapro) 10 MG tablet Active fluticasone propionate (Flonase) 50 MCG/ACT nasal spray [place] 2 (two) sprays into the nose once daily Active Accu-Chek Guide test strip 2 times daily 5 Active HYDROcodone-ac etaminophen ([place]) 5-325 MG tablet Take 1 (one) tablet [...] vitamin D, ergocalciferol , (Drisdol) 1.25 MG (16796 UT) capsule TAKE 1 CAPSULE BY MOUTH [...] Sanchez was screened for depression using the [place] Depression Scale (EPDS) at her [facility] initial evaluation on 03/06/2018. Her initial [...] 3rd trimester neonatology consult at [facility] due to psychiatric medications, if continued [...] from the original note were not included. [facility] PATIENT--PLEASE CALL [phone] (ex 2) IF TRIAGED OR ADMITTED Care Provider: Dr. Erasmo Wood MILAGRO [facility] Care [employer] consultants involved: RN-Rosana/Jayce; MFM-Vitor; Cleft Team-Kamila Mojica; Cardiology-Vitor Diagnosis: Cleft Lip & Palate follow up: per Cleft Team consult 9.10: Family will call to schedule a visit with the cleft palate team after the baby is born. Sweet Potato Disintegrator: undecided as of 04.03 Planned surveillance: Repeat ultrasound at [facility] at 32w & 36w; released from [facility] on 04.03.2018 Delivery location, mode, and [...] laboratory and call the genetic counselors at [phone] or [phone] to notify that specimen is ready for sendout. Order can be placed by genetic counselor in baby's chart at that time. Please request Genetics consult postnatally if clinically indicated by calling the Genetics office at [phone] prior to ordering genetic studies. [place] Concerns: 03/06/18- Patient with history of bipolar [...] Encounters Date Type Department Care Team Description 04/19/2025 Telephone [facility] - Vascular Surgery [address] [place] [address], [place] [phone] Alexa Landers MD Medication Issue 04/17/2025 9:45 AM CDT Office Visit [facility] [address] [place] [address], [place] [phone] Alexa Landers MD Right upper quadrant pain (Primary Dx) 04/17/2025 7:40 AM CDT - 04/17/2025 11:59 PM CDT Hospital Encounter [facility] CAT SCAN [address] [place] [address] Alexa Landers MD Discharge Disposition: Home or Self Care 04/17/2025 Travel 04/01/2025 Travel 03/28/2025 Telephone [facility] [address] [facility], [place] [address] Alexa Landers MD Follow-up 03/28/2025 Travel from Last 3 Months Immunizations Immunization [...] Given: No Alcohol Use Standard Drinks/Week Comments Yes 0 (1 standard drink = 0.6 oz pur e alcohol) PHQ-2 Answer Date Recorded Patient Health Questionnaire-2 Score 0 02/22/2024 Comments No Sex and Gender Information Value Date Recorded Sex Assigned at Female 02/21/2024 3:10 PM CDT Legal Sex Female 3:34 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 Gender Identity Female 02/21/2024 3:10 PM CDT Sexual Orientation Not on file Last Filed Vital Signs Vital Sign Reading Time Taken Comments Blood Pressure 108/65 04/17/2025 9:51 AM CDT Pulse 68 04/17/2025 9:51 AM CDT Temperature 36.7 C (98 F) 01/16/2025 12:00 PM CDT Respiratory Rate 16 02/10/2024 2:47 PM CDT Oxygen Saturation 98% 04/17/2025 9:51 AM CDT Inhaled Oxygen Concentration 21% 06/30/2018 8 :39 AM FUR GLAZER Weight 75.3 kg (166 lb) 04/17/2025 9:51 AM CDT Height 170.2 cm (5' 7) 04/17/2025 9:51 AM CDT Body Mass Index 26 04/17/2025 9:51 AM CDT Plan of Treatment Upcoming Encounters Date Type Department Care Team (Late st Contact Info) Description 04/24/2025 7:30 AM CDT Appointment [facility] [address] [place] [address] Alexa Landers MD [facility] [facility] 2L DIV [place] [address] 05/29/2025 8:30 AM FUR GLAZER Office Visit [facility] - Rheumatology [address] [facility], [place] [address] Donny Rodas MD [facility] [place] [address] Health Maintenance Due Date Last Done Comments [...] Name Priority Date/Time Associated Diagnosis Comments CT ANGIO ABDOMEN ZITA 04/17/2025 8:15 AM CDT Mesenteric venous thrombosis (HCC) Splenic vein thrombosis ISTAT CREATININE Routine 04/17/2025 8:06 AM CDT PAP LB RFLX HPV ASCU Routine 11/24/2018 2:32 PM CDT Well woman exam HEPATITIS C ANTIBODY Routine 11/24/2018 2:32 PM CDT Well woman exam HIV-1 HIV-2 ANTIBODY + HIV P24 AG PANEL Routine 11/24/2018 2:32 PM CDT Well woman exam from Last 3 Months or Most Recently Relevant to Health Maintenance Results * CT Angio Abdomen (04/17/2025 8:15 AM CDT) Anatomical Region Laterality Modality Abdomen Computed Tomogra phy 04/17/2025 8:42 AM CDT Impressions 04/17/2025 3:38 PM CDT Impression: 1.No splenic/mesenteric vein thrombosis as clinically queried. 2.No acute process in the abdomen. > Dictated by Bennie Gonzalez MD > Dictated by Cleat Blanker Seb Rice. Henry Castro MD have personally reviewed and interpreted this examination/study. > Interpreting Provider: Ankur Castro MD on 04/17/2025 3:38 PM Narrative 04/17/2025 3:38 PM CDT PROCEDURE: CT ANGIO ABDOMEN, DATE/TIME OF EXAM: 04/17/2025 8:16 AM, LOCATION [facility] INDICATION: K55.069: Mesenteric venous thrombosis (HCC) I82.890: Splenic vein thrombosis ADDITIONAL CLINICAL INFORMATION: Ordering Provider Reason For Exam: splenic vein thrombosis Technologist Note: Additional: COMPARISON: None. TECHNIQUE: CT of the abdomen was performed prior to and following the uneventful administration of 100 mL of Isovue 370 intravenous contrast according to an angiographic protocol. A portal venous phase was also subsequently obtained. Three dimensional postprocessing was performed by the technologist and sent to the workstation for review. Findings: Abdominal aorta: There is no aortic dissection, intramural hematoma, penetrating atherosclerotic ulcer, or aneurysm. The aorta is normal in course and caliber. Abdominal aortic branches: Celiac axis: Patent without significant focal stenosis. Superior mesenteric artery: Patent without significant focal stenosis. Inferior mesenteric artery: Patent without significant focal stenosis. Right renal artery: Patent without significant focal stenosis. Left renal artery: Patent without significant focal stenosis. Right common iliac artery: Patent without significant focal stenosis. Left common iliac artery: Patent without significant focal stenosis. Lower Chest: Mild bilateral dependent atelectasis is present in the visualized lung bases. Liver: Normal. Gallbladder and Bile Ducts: Normal. Spleen: Normal. Pancreas: Normal. Adrenals: Normal. Kidneys: Normal. Gastrointestinal: The stomach and visualized loops of large and small bowel are unremarkable. Mesentery/Peritoneum/Retroperitoneum: No free intraperitoneal air. No free fluid in the abdomen or pelvis. Bones: Bone windows demonstrate no suspicious lytic or blastic lesions. The visible osseous structures are intact. Soft tissues: Normal. Procedure Note Bailey Castro MD - 04/17/2025 PROCEDURE: CT ANGIO ABDOMEN, DATE/TIME OF EXAM: 04/17/2025 8:16 AM, LOCATION [facility] INDICATION: K55.069: Mesenteric venous thrombosis (HCC) I82.890: Splenic vein thrombosis ADDITIONAL CLINICAL INFORMATION: Ordering Provider Reason For Exam: splenic vein thrombosis Technologist Note: Additional: COMPARISON: None. TECHNIQUE: CT of the abdomen was performed prior to and following the uneventful administration of 100 mL of Isovue 370 intravenous contrast according to an angiographic protocol. A portal venous phase was also subsequently obtained. Three dimensional postprocessing was performed by the technologist and sent to the workstation for review. Findings: Abdominal aorta: There is no aortic dissection, intramural hematoma, penetrating atherosclerotic ulcer, or aneurysm. The aorta is normal in course and caliber. Abdominal aortic branches: Celiac axis: Patent without significant focal stenosis. Superior mesenteric artery: Patent without significant focal stenosis. Inferior mesenteric artery: Patent without significant focal stenosis. Right renal artery: Patent without significant focal stenosis. Left renal artery: Patent without significant focal stenosis. Right common iliac artery: Patent without significant focal stenosis. Left common iliac artery: Patent without significant focal stenosis. Lower Chest: Mild bilateral dependent atelectasis is present in the visualized lung bases. Liver: Normal. Gallbladder and Bile Ducts: Normal. Spleen: Normal. Pancreas: Normal. Adrenals: Normal. Kidneys: Normal. Gastrointestinal: The stomach and visualized loops of large and small bowel areunremarkable. Mesentery/Peritoneum/Retroperitoneum: No free intraperitoneal air. No free fluid in the abdomen or pelvis. Bones: Bone windows demonstrate no suspicious lytic or blastic lesions. The visible osseous structures are intact. Soft tissues: Normal. Impression: 1.No splenic/mesenteric vein thrombosis as clinically queried. 2.No acute process in the abdomen. > Dictated by Bennie Gonzalez MD > Dictated by Cleat Blanker I, Ankur Castro MD have personally reviewed and interpreted this examination/study. > Interpreting Provider: Ankur Castro MD on 04/17/2025 3:38 PM Alexa Landers MD CT ORDERABLES Final Resul t * ISTAT CREATININE (04/17/2025 8:06 AM CDT) Creatinine POCT 0.80 0.60 - 1.30 mg/dL 04/17/2025 8:07 AM CDT [facility] eGFR by CKD-EPI >90 >90 mL/min/1.7 3 m2 04/17/2025 8:07 AM CDT [facility] Sample iSTAT QUITA 04/17/2025 8:07 AM CDT [facility] Blood BLOOD SPECIMEN / Unknown 04/17/2025 8:06 AM CDT 04/17/2025 8:07 AM CDT Alexa Landers MD LAB - POINT OF CARE ORDERAB LES Final Result [facility] [address] [place] [address], [facility] [phone] * HIV-1 HIV-2 ANTIBODY + HIV P24 [...] ORDERAB LES Final Result Performing Organization Address City/[facility]/ZIP Co de Phone Number [facility] [address] [place] [address] * PAP LB RFLX HPV ASCU (11/24/2018 2:32 PM CDT) Diagnosis Comment 11/29/2018 11:13 AM CDT [facility] ([facility]) Comment:NEGATIVE FOR INTRAEP ITHELIAL LESION OR MALIGNANCY. Specimen Adequacy Comment 019 11:13 AM CDT [facility] ([facility]) Comment: Satisfactory for evaluation. Endocervical and/or squamous metaplastic cells (endocervical component) are present. Performed by Comment 11/29/2018 11:13 AM CDT [facility] ([facility]) Comment:Martha Napier Cytote chnologist (ASCP) Comment . 11/29/2018 11:13 AM CDT [facility] Note Comment 11/29/2018 11:13 AM CDT [facility] ([facility]) Comment: The Pap smear is a screening test designed to aid in the detection of premalignant and malignant conditions of the uterine cervix. It is not a diagnostic procedure and should not be used as the sole means of detecting cervical cancer. Both false-positive and false-negative reports do occur. Note Comment 11/29/2018 11:13 AM CDT [facility] ([facility]) Comment: The HPV DNA reflex criteria were not met with this specimen result therefore, no HPV testing was performed. Pathology/Cytolo gy ENTIRE ENDOCERVIX / Unknown Collection / Unknown 11/24/2018 2:32 PM CDT 11/25/2018 7:38 AM CDT Narrative [facility] ([facility]) - 11/29/2018 11:13 AM CDT Performed at: [address] [place] [id number] Certified Nurses Aide: Fe Cruz MD, Phone: [phone] Specimen Comment: Source.............Cervix;Endocervix Specimen Comment: No. of containers..01 ThinPrep Vial Alondra Saxena DO LAB - PATHOLOGY/CYTOLOG Y ORDERABLES Final Result [facility] ([facility]) [address] [place] [address] * HEPATITIS C ANTIBODY (11/24/2018 2:32 PM CDT) Pathologist [facility] HCV Antibody Screen Non Reactive Non Reactive 11/24/2018 4:08 PM CDT [facility] HCV S/C Ratio 0.13 0.00 - 0.79 11/24/2018 4:08 PM CDT [facility] Comment: Kdmskv-xu-epsvnc ratio (S/CO) <0.80: Non Reactive Blood BLOOD [...] Final Result [facility] [address] [place] [address] from Last 3 Months or Most Recently Relevant to Health Maintenance Insurance Advance Directives * Full Code (Latest Code Status on File) Date Activated Date Inactivated Comments 06/28/2018 1:00 PM 06/30/2018 1:33 PM Care Teams Geospatial Engineer Relationship Specialty Start Date End Date Mervin Kevin MD [address] [facility] [address] [place] [address] PCP - General Family Medicine 12/29/17
--- OUTSIDE RECORDS SUMMARY | 2025-04-24 00:52 | XMS_ITS | Clinical Summary ---
Author Organization [facility] Address [address] [place] [address] Care Team Providers Care Body Fitter Name Role Phone Mervin Kevin MD Primary Care Provider [phone] Allergies Active Allergy Reactions Criticality Noted Date [...] tablet (25 mg total) by mouth Active Active Problems No known active problems Encounters Date Type Department Care Team Description 02/20/2025 11:59 AM CDT - 02/20/2025 2:21 PM CDT Emergency [address] [address] Left foot pain (Primary Dx) Discharge Disposition: Discharge to home or self care 02/20/2025 8:00 AM CDT - 02/20/2025 11:59 PM CDT Hospital Encounter [facility] Cardiac Testing [address] [place] [address] Palpitations Discharge Disposition: Discharge to home or self care 02/07/2025 Telephone [facility] [address] [place] [phone] Pepper Pimentel MD holter 02/05/2025 1:45 PM CDT Ancillary Procedure [facility] Cardiology [address] [place] [phone] Palpitations 02/05/2025 12:30 PM CDT Office Visit [facility] Cardiology [address] [place] [phone] Pepper Pimentel MD Palpitations (Primary Dx) from Last 3 Months Surgical History Surgery Date Site/Laterality Comments TUBAL LIGATION 2022 SECTION 2016 and 2019 Medical History Medical History Date [...] on file Legal Sex Female 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 LB T: Report ID: [id number] Reading Location: [id number] Procedure Note Papo Zheng MD - 02/20/2025 [...] Papo Zheng M.D. LB T: Report ID: [id number] Reading Location: [id number] Johann Slowik DO IMG XR PROCEDURES Final Result * [...] Papo Zheng M.D. LB T: Report ID: [id number] Reading Location: [id number] Procedure Note Papo Zheng MD - 02/20/2025 [...] Papo Zheng M.D. LB T: Report ID: [id number] Reading Location: [id number] Johann Fox DO IMG XR PROCEDURES Final [...] AM Ht(Inch): 67 Wt(Lb): 159 BSA: 1.85 Chief Chemist: Jo Gamble RDCS Order Provider: PEPPER PIMENTEL Heart Rate: 58 BMI: 24.9 BP: 98 / 54 Ref Provider: PEPPER PIMENTEL PROCEDURES: Echocardiographic Report: ([id number]) Transthoracic complete echo, 2D, spectral and tissue [...] AM Ht(Inch): 67 Wt(Lb): 159 BSA: 1.85 Chief Chemist: Jo Gamble RDCS Order Provider: PEPPER PIMENTEL Heart Rate: 58 BMI: 24.9 BP: 98 / 54 Ref Provider: PEPPER PIMENTEL PROCEDURES: Echocardiographic Report: ([id number]) Transthoracic complete echo, 2D,spectral and tissue Doppler, [...] MD CV ECHO PROCEDURES Final Result * Extended/Shelter Holter Patch (8 days up to 15 [...] nal Result from Last 3 Months Insurance [facility] OTHER Address: ATTN: CLAIMS DEPT [address] [place] [address] [facility] Care Teams Body Fitter Relationship Specialty Start Date End Date Mervin Kevin MD PCP - General Emergency Medicine 02/22/22
--- OUTSIDE RECORDS SUMMARY | 2025-04-24 00:52 | XMS_ITS | Clinical Summary ---
Author Organization 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 Gender Identity Not on file Sexual Orientation Not on file Last Filed Vital Signs Vital Sign Reading Time Taken Comments Blood Pressure 111/67 07/29/2017 9:58 AM BOUFFANT CURTAIN MACHINE TENDER Pulse 72 07/29/2017 9:58 AM BOUFFANT CURTAIN MACHINE TENDER Temperature - - Respiratory Rate - - Oxygen Saturation - - Inhaled Oxygen Concentration - - Weight 68 kg (150 lb) 07/29/2017 9:58 AM BOUFFANT CURTAIN MACHINE TENDER Height 170.2 cm (5' 7) 07/29/2017 9:58 AM BOUFFANT CURTAIN MACHINE TENDER Body Mass Index 23.49 07/29/2017 9:58 AM BOUFFANT CURTAIN MACHINE TENDER Plan of Treatment Health Maintenance Due Date [...] with HPV 2020 COVID-19 Vaccine ( - 2024-2 6 season) 2025 Influenza Adult (#1) 2025 Hepatitis A Vaccines Aged Out No long er eligible based on patient's age to complete [...] patient's age to complete this topic Insurance [id number] Care Teams Right Of Way Worker Relationship Specialty Start Date End Date Mervin Kevin MD [facility] [address] [address] PCP - General FAMILY PRACTICE 06/30/17
--- OUTSIDE RECORDS SUMMARY | 2025-04-24 00:52 | XMS_ITS | Data Portability ---
Author Organization [place] - [facility] [employer] [facility], Main Office Address [address] [place] [address] Care Team Providers Care Public Health Training Assistant Name Role Phone MERVIN KEVIN Referring Provider [phone] Assessment Encounter Date Assessment Date Assessment LastModified [...] 90 mcg/actua tion aerosol inhaler 2024 025 [facility] #[id number], [address], [place], [address], 10/02/2024 12:40:21 Wixela Inhub 250 mcg-50 mcg/dose powder for inhalatio n 2024 025 [id number], [address] [place], [address], 10/02/2024 12:40:22 ipratropi um bromide 42 mcg (0.06 %) nasal spray 2024 025 [id number], [address] [place], [address], 10/02/2024 12:40:21 albuterol sulfate HFA 90 mcg/actua tion aerosol inhaler 2023 024 [facility] #[id number], [address] [place], [address], 01/12/2024 11:00:41 Wixela Inhub 250 mcg-50 mcg/dose powder for inhalatio n 2023 024 [facility] #[id number], [address] [place], [address], 01/12/2024 11:00:41 ipratropi um bromide 42 mcg (0.06 %) nasal spray 2023 024 [facility] #[id number], [address], [place], [address], 01/12/2024 11:00:42 albuterol sulfate HFA 90 mcg/actua tion aerosol inhaler 2022 023 [facility] #[id number], [address], [place], [address], 02/07/2023 10:06:41 ipratropi um bromide 42 mcg (0.06 %) nasal spray 2022 023 [facility] #[id number], [address], [place], [address], 02/07/2023 10:00:36 Patient TargetsNo targets recorded. Patient Instructions Encounter Date Encounter Id Patient Instructions Last Modified By Organization Details Last Modified Time 02/07/2023 [id number] complete PFT w/ post bronchodilator spirometry* - No auth needed Not available 01/02/2024 15:47:26 01/12/2024 [id number] complete PFT w/ post bronchodilator spirometry* [email or web address] Not available 08/13/2024 17:15:39 10/02/2024 [id number] complete PFT w/ post bronchodilator spirometry* Not available 10/02/2024 12:40:16 Reason for Referral None Reported. Results Created Date Observation Date Name Description Value Unit Range Abnormal Flag Note LastModifiedBy Organization Detail LastModifiedTime 07/28/1907/28/2022 [place], modif ied spike villafana ow study No observ ation record ed. [id number] [facility] [address] [place], [address], 08/25/2022 13:32:14 07/28/19 23 07/28/2022 CT, chest , w/o contr ast No observ ation record ed. [id number] [facility] [address] [place], [address], 08/25/2022 13:32:14 08/03/19 23 07/28/2022 [place], modif ied spike villafana ow study No observ ation record ed. [id number] [facility] ([facility] Sched[facility]) [address] [place], [address], 08/25/2022 13:32:14 02/02/20 23 01/31/2023 compl ete PFT w/ post [facility] hodil ator michelle metry * No observ ation record ed. [facility] ([facility] Scheduling) [address] [place], [address], 02/01/2023 17:29:30 10/05/19 25 10/02/2024 compl ete PFT w/ post [facility] hodil ator michelle metry * No observ ation record ed. [facility] ([facility] Call Scheduling) [address] [place], [address], 10/04/2024 17:32:29 Result Notes None recorded. 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 Procedures Surgical History Date Name Laterality Status Provider Name and Address Organization Details Recorded Time 11/19/19 23 Hysterectomy completed Irma Mohr MA [place] [facility] [place] [facility] 02/07/2023 09:43:48 section completed Not Available [facility] 08/25/2022 13:29:35 Imaging Results None recorded. Procedure Notes None recorded. Medical Equipment None Reported. Allergies Allergen ID Allergen Name Allergen Category Reaction Reaction Severity Criticality Documentation Date Start Date Code Code System Note Provider Name and Address Organization Details Recorded Time 18314 Macrobid medicatio n Not available Not available Not available 08/25/2022 06002 1 RxNorm Not Available [facility] 13:32:12 Medications Name Sig Start Date Stop [...] % 72 /min 15 /min 98.6 [degF] 81571.4 1 g 110/66 mm[Hg] Not Available [facility] 3 13:30:03 Date Recorded Body mass index (BMI) Heart rate Body height Oxygen saturation Oxygen saturation in Arterial blood by Pulse oximetry Heart rate Respiratory rate Body temperature Body weight Systolic And Diastolic Provider Name and Address Organization Details Last Updated DateTime 3 26 kg/m2 61 /min 165.1 cm 97 % 97 % 61 /min 15 /min 98.2 [degF] 17232.4 1 g 108/60 mm[Hg] Not Available [facility] 3 13:30:04 Date Recorded Heart rate Respiratory rate Provider N abelino and Address Organization Details Last Updated DateTime 10/02/2024 80 /min 15 /min Ruslan Reid MD [address] [facility], [facility] [address], [place], [address], [place] [facility] [employer] [facility] 10/02/2024 12:45:32 Date Recorded Body height Body mass index (BMI) Body weight Body temperature Heart rate Oxygen saturation Oxygen saturation in Arterial blood by Pulse oximetry Systolic And Diastolic Provider Name and Address Organization Details Last Updated DateTime 5 165.1 cm 26.6 kg/m2 17783.7 8 g 98.3 [degF] 80 /min 98 % 98 % 116/66 mm[Hg] Irma Mohr MA [facility] [employer] 5 12:20:22 Date Recorded Body height Body mass index (BMI) Body weight Oxygen saturation Oxygen saturation in Arterial blood by Pulse oximetry Body temperature Heart rate Systolic And Diastolic Provider Name and Address Organization Details Last Updated DateTime 4 165.1 cm 25 kg/m2 53287.8 6 g 98 % 98 % 98.1 [degF] 87 /min 118/68 mm[Hg] Fabian Lowe CMA [facility] [employer] 4 10:40:20 Date Recorded Heart rate Oxygen saturation Oxygen saturation in Arterial blood by Pulse oximetry Heart rate Respiratory rate Provider Name and Address Organization Details Last Updated DateTime 3 59 /min 99 % 99 % 59 /min 15 /min Ruslan Reid MD [address] [facility], [facility] [address], [place], [address], [facility] 3 10:07:55 Date Recorded Body height Body mass index (BMI) Body weight Body temperature Systolic And Diastolic Provider Name and Address Organization Details Last Updated DateTime 02/07/2023 165.1 cm 25 kg/m2 15391.8 6 g 98.1 [degF] 110/68 mm[Hg] Irma Mohr MA [facility] [employer] [facility] 3 09:47:14 Social History Question Answer Notes LastModified by Organizat ion Details LastModified Time Tobacco Smoking Status Former Smoker quit 3 years ago Irma Mohr MA null, [facility] 10/02/2024 12:17:03 What Is Your Level Of Caffeine Consumption? Occasional [id number].[id number] Information not available 08/25/2022 In The 14 Days Before Symptom Onset, Have You Had Close Contact With A Laboratory-confi rmed COVID-19 While That Case Was Ill? No MIGRATION.38595 [id number] Information not available 08/25/2022 In The 14 Days Before Symptom Onset, Have You Had Close Contact With A Person Who Is Under Investigation For COVID-19 While That Person Was Ill? No MIGRATION.57445 [id number] Information not available 08/25/2022 What Type Of Diet Are You Following? REGULAR MIGRATION.13717 63833 Information not available 08/25/2022 Do You Have An Electrostatic Air Filter? Yes MIGRATION.37476 45450 Information not available 08/25/2022 Are There Any Guns Present In Your Home? No MIGRATION.15054 55446 Information not available 08/25/2022 Do You Have A Humidifier? Yes MIGRATION.66706 13122 Information not available 08/25/2022 Where Do You Live? [place] MIGRATION.59336 90204 Information not available 08/25/2022 Do You Have Moisture Problems In Your Home? No MIGRATION.28628 60657 Information not available 08/25/2022 What Was The Date Of Your Most Recent Tobacco Screening? 10/02/2024 Information not available 10/02/2024 Do You Have Any Pets? Yes MIGRATION.09042 61869 Information not available 08/25/2022 Do You Use Your Seat Belt Or Car Seat Routinely? Yes Information not available 10/02/2024 Do You Have Smoke And Carbon Monoxide Detectors In Your Home? Yes MIGRATION.22939 87667 Information not available 08/25/2022 At What Age Did You Start Smoking Tobacco? 13 MIGRATION.64196 29035 Information not available 08/25/2022 Are You Passively Exposed To Smoke? No MIGRATION.10890 91480 Information not available 08/25/2022 How Much Tobacco Do You Smoke? No MIGRATION.83535 87538 Information not available 08/25/2022 Do You Use Sunscreen Routinely? No MIGRATION.82900 24800 Information not available 08/25/2022 How Many Years Have You Smoked Tobacco? 16 MIGRATION.21989 52384 Information not available 08/25/2022 Have You Recently Traveled Abroad? No MIGRATION.47079 70359 Information not available 08/25/2022 Do You Have Any Dietary Restrictions? No MIGRATION.45905 19306 Information not available 08/25/2022 Sex: Female Functional Status Question Answer Note LastModified by Organizat ion Details LastModified Time Do you use any illicit or recreational drugs? Yes marijuana MIGRATION.90651 31928 Information not available 08/25/2022 Do you or have you ever used any other forms of tobacco or nicotine? No Information not available 10/02/2024 What is your level of alcohol consumption? None MIGRATION.86563 42665 Information not available 08/25/2022 Have you been exposed to chemicals or toxins? 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 Heavy MIGRATION.48764 01300 Information not available 08/25/2022 Mental Status Question Answer Note LastModified by Organizat ion Details LastModified Time Do you feel stressed (tense, restless, nervous, or anxious, or unable to sleep at night)? [id number] MIGRATION.[id number] 6 Information not available 08/25/2022 Family History Relationship Description Onset Age of this Age Resolved Age Notes LastModified by Organization Details LastModified Time Father Family history of malignant neoplasm MIGRATION.644 [id number] Not available 08/25/2022 13:29:36 Father Blood coagulation disorder MIGRATION.594 [id number] Not available 08/25/2022 13:29:36 Father Diabetes mellitus MIGRATION.070 [id number] Not available 08/25/2022 13:29:36 Father Chronic obstructive pulmonary disease MIGRATION.153 [id number] Not available 08/25/2022 13:29:36 Brother Asthma MIGRATION.887 [id number] Not available 08/25/2022 13:29:36 Sister Asthma MIGRATION.734 [id number] Not available 08/25/2022 13:29:36 Paternal Grandmother Asthma MIGRATION.216 [id number] Not available 08/25/2022 13:29:36 Maternal Grandmother Asthma MIGRATION.077 [id number] Not available 08/25/2022 13:29:36 Medical History Condition [...] HAVE YOU BEEN HOSPITALIZED OR SEEN IN [facility] IN THE PAST YEAR [...] dose 04/20/2021 completed Not Available [facility] 4 17:07:19 COVID-19, mRNA, LNP-S, PF, 30 mcg/0.3 mL dose 03/30/2021 completed Not Available [facility] 4 17:07:19 Past Encounters Encounter ID Performer Location Encounter Start Date Encounter Closed Date Diagnosis/Indication Diagnosis SNOMED-CT Code Diagnosis ICD10 Code Diagnosis IMO Codes Diagnosis Note [id number] MD CLAUDIA Houston_[facility]MD[facility] [address] [address] 04/09/2021 00:00:00 04/09/2021 09:36:09 [id number] MD JOSSUE Houston [address] [address] 04/23/2021 00:00:00 04/23/2021 11:07:07 [id number] MD CLAUDIA Preciado_GMDena Pulmonolo gy [address], [facility] [address] [place] [address] 10/08/2021 00:00:00 10/08/2021 15:19:33 [id number] MD CLAUDIA Preciado_GMG Pulmonolo [facility] [address] [place] [address] 10/22/2021 00:00:00 10/22/2021 15:34:32 [id number] MD CLAUDIA Preciado_GMDena Pulmonolo [address] [address] 04/22/2022 00:00:00 04/22/2022 13:17:16 [id number] MD CLAUDIA Preciado_GMD[facility] Pulmon[facility] [address] [address] 07/15/2022 00:00:00 07/15/2022 16:05:23 [id number] MD CLAUDIA Preciado_GMDena Pulmon[facility] [address] [address] 08/05/2022 00:00:00 08/05/2022 15:35:19 [id number] MD CLAUDIA Preciado_GMG [facility] [address] [address] 02/07/2023 09:27:31 02/08/2023 10:11:10 Posterior rhinorrhea 21642904 R09.82 Severe per sistent asthma 419278842 J45.50 [id number] MD CLAUDIA Preciado_GMG Pulmon[facility] [address] [address] 01/12/2024 10:29:39 01/13/2024 08:21:56 Severe persistent asthma 771655718 J45.50 Posterior rhinorrhea 758 78555 R09.82 [id number] Karie Juares NP [facility] [address] [place] [address] 07/05/2024 14:05:19 07/05/2024 17:28:27 [id number] [facility] [address] [place] [address] 08/02/2024 14:32:51 08/02/2024 15:49:42 [id number] Ruslan Reid MD [facility] [place] [address] [address] 10/02/2024 11:57:56 10/03/2024 13:12:21 Severe persistent asthma 559743931 J45.50 Posterior rhinorrhea 758 46948 R09.82 Health Concerns Section Related Observation LastModified by Organization Detai ls LastModified Time None Recorded Concern Status LastModified by Organization Details LastModified Time None Recorded Advance Directives Directive None Recorded Payers Insurance Date Sequence Insurance Name Policy Number Policy Barrett Covered Member ID Barrett Member ID Guarantor Name 10/02/2024 1 [place] [id number] 1 Orlando D Daniel [id number] Yu D Daniel 12/01/2024 1 [place] [facility] Yu D Daniel [id number] Yu D Daniel 10/30/2024 2 [place] [id number] 1 Orlando D Daniel [id number] Yu D Daniel Notes Date Note Type Note Provider Name and Address Organization Details Recorded Time 02/07/2023 text/html Primary care/Referring provider: Mervin Kevin, MDPatient is here to go over her asthma management.Initial development of shortness of breath: 2005Duration of shortness of breath: 18 yearsCondition of shortness of breath: stableTiming of shortness of breath: morning and bedtimeFrequency: up to 10 times a dayLimits activities: yesAggravating factors: walking, lifting 20 lbs objectsAlleviating factors: restModified [employer] Nikolai (mMRC) Dyspnea Scale - Grade 2Grade 0 [...] chance of dozing. Ruslan Reid MD [address] [facility], [place], [address], [place] [facility] [email or web address] [facility] 08/17/2023 14:56:20 01/12/2024 text/html Primary care/Referring provider: Mervin Kevin, MDPatient is here to go over her asthma management.Initial development of shortness of breath: 2005Duration of shortness of breath: 19 yearsCondition of shortness of breath: stableTiming of shortness of breath: morning and bedtimeFrequency: up to 10 times a dayLimits activities: yesAggravating factors: walking, lifting 20 lbs objectsAlleviating factors: restModified [employer]olai (mMRC) Dyspnea Scale - Grade 2Grade 0 [...] 12 h 03/11/22 - 03/17/22Azithromycin 250 mg 10/01/22 - 03/31/22Amoxicillin 500 mg 05/17/22-05/23/22Cefdin ir 300 [...] chance of dozing. Ruslan Reid MD [address] [place] [address], [facility] [address], [place], [address], [facility] [employer] [facility] 01/12/2024 11:03:36 10/02/2024 text/html Primary care/Referring provider: Mervin Kevin, MDPatient is here to go over her asthma management.Initial development of shortness of breath: 2005Duration of shortness of breath: 20 yearsCondition of shortness of breath: stableTiming of shortness of breath: morning and bedtimeFrequency: up to 8 times a dayLimits activities: yesAggravating factors: walking, lifting 20 lbs objectsAlleviating factors: restModified [employer] Nikolai (mMRC) Dyspnea Scale - Grade 2Grade 0 [...] chance of dozing. Ruslan Reid MD [address] [place] [address], [place] [address], [place], [address], [place] [facility] 10/02/2024 12:46:55 OBGyn Episode No OBEpisode recorded.
--- OUTSIDE RECORDS SUMMARY | 2025-04-24 00:52 | XMS_ITS | Clinical Summary ---
Author Organization [facility] Address [address] [place] [address] Phone Care Team Providers Care Rf Design Engineer Name Role Phone Mervin Kevin MD Primary Care Provider [phone] Allergies Active Allergy Reactions Criticality Noted Date Comments Nitrofurantoin Other (see Comments),Anaphylax is,Shortness of Breath,Hives,Rash High 12/29/2017 Other-Environmental Allergen (Not Found In Search) Other (see Comments) 01/16/2025 Grass, cottonwood Medications fluticasone (FLONASE) 50 MCG/ACT Suspension 2 Sprays by Nasal route daily. Active ergocalcifero l (VITAMIN D) 99067 UNIT Capsule Take 1.25 mg by mouth [...] mg by mouth daily. 01/09/20 22 Active diphenhydrAMI NE (BENADRYL) 25 MG Capsule Take 25 mg by mouth every 6 hours as needed for Allergies. Active Advair Diskus 250-50 MCG/ACT AEROSOL POWDER, BREATH ACTIVATED take 1 Puff by inhalation 2 times daily. Active Hydrocortison e Acetate 1.12 %(1% Base) Cream 2 times [...] Active ipratropium (ATROVENT) 0.06 % Solution 1 [place] by Nasal route daily. 07/15/19 23 Active [...] in 2 hours if headache recurs. Active cyclobenzapri ne (FLEXERIL) 10 MG Tablet Take 10 mg [...] DAILY FOR 2 WEEKS 01/26/20 25 Active apixaban (Eliquis) 5 MG Tablet TAKE 1 TABLET BY MOUTH TWICE A DAY FOR ATRIAL FIBRILLATION 60 Tablet 2 04/15/20 Active traMADol (ULTRAM) 50 MG TabletIndicat ions:Acute Pain Take 1-2 Tablets by mouth every 6 hours as needed for Moderate or more severe pain. Indications: Acute Pain 12 Tablet 04/19/20 25 Active ondansetron (ZOFRAN) 4 MG Tablet Take 1 Tablet by mouth every 8 hours as needed for Nausea - 1st line. 10 Tablet 04/19/20 25 Active ondansetron (ZOFRAN) 4 MG Tablet Take 4 mg by mouth every 8 hours as needed. 025 Discontinued( ed List Clean Up) Eliquis 5 MG Tablet TAKE 1 TABLET BY MOUTH TWICE A DAY FOR ATRIAL FIBRILLATION 60 Tablet 03/14/20 25 025 Discontinued Active Problems Problem Noted Date Diagnosed Date H. pylori infection 02/04/2025 Gastroesophageal reflux disease 02/04/2025 Splenic vein thrombosis 01/02/2025 Nodule of right lung 11/21/2024 History of iron deficiency 11/21/2024 Persistent atrial fibrillation 11/21/2024 Chronic bronchitis 11/21/2024 History of systemic lupus erythematosus (SLE) Encounters Date Type Department Care Team Description 04/22/2025 Telephone [facility] [address] [place] [address] Danna Cueva Patient Outreach 04/22/2025 [facility]phone [facility] [address] [place] [address] Danna Cueva Patient Outreach 04/19/2025 12:31 PM CDT - 04/19/2025 4:24 PM CDT Emergency [facility] [address] [place] [address] Anirudh Denny, PAC Diarrhea Discharge Disposition: Discharged to home or Selfcare 04/19/2025 Travel 04/15/2025 Refill [facility] [address] [place] [address] Wili Solomon MD Medication Refill 03/19/2025 9:47 AM CDT - 03/19/2025 11:59 PM CDT [facility] [address] [place] [address] Cinthia Noriega APRN, TRAM DRIVER Discharge Disposition: Discharged to home or Selfcare 03/17/2025 Travel 03/14/20[facility] [address] [place] [phone] Wili Solomon MD Medication Refill 02/15/2025 [facility] [address] [place] [phone] Wili Solomon MD 02/04/2025 2:40 PM CDT [facility] [address] [place] [address] Wili Solomon MD History of systemic lupus erythematosus (SLE) (HCC) (Primary Dx); Splenic vein thrombosis; Chronic bronchitis, unspecified chronic bronchitis type (HCC); Nodule of right lung; History of iron deficiency; H. pylori infection; Gastroesophageal reflux disease, unspecified whether esophagitis present Discharge Disposition: Discharged to home or Selfcare 02/04/2025 Travel 02/02/2025 Travel from Last 3 Months Immunizations Immunization [...] Years Used Date Smoking Tobacco: Former Cigarettes 0 Q uit: 2012 Smokeless Tobacco: Never Alcohol [...] often do you attend chur ch or roman catholic services? More than 4 times per year 01/15/2025 Do you belong to any clubs o r organizations such as baptism groups, unions, fraternal or athletic groups, or [...] medical care, and heating? Very hard 01/15/2025 [facility] - Occupational Stress [...] any time in the past 12 m [facility], were you homeless or living in a alf (including now)? No 01/15/2025 [facility] Utilities Answer Date Recorded In the past [...] Sign Reading Time Taken Comments Blood Pressure 112/64 04/19/2025 4:23 PM CDT Pulse 84 04/19/2025 4:23 PM CDT Temperature 37.8 C (100.1 F) 04/19/2025 12:28 PM CDT Respiratory Rate 18 04/19/2025 4:23 PM CDT Oxygen Saturation 100% 04/19/2025 4:23 PM CDT Inhaled Oxygen Concentration - - Weight 72.6 kg (160 lb) 04/19/2025 12:28 PM CDT Height 170.2 cm (5' 7) 04/19/2025 12:28 PM CDT Body Mass Index 25.06 04/19/2025 12:28 PM CDT Plan of Treatment Upcoming Encounters Date Type Department Care Team (Late st Contact Info) Description 05/20/2025 10:00 AM EMPLOYMENT MANAGER Appointment [facility] [address] [place] [address] Wili Solomon MD [address] [place] [address] 06/10/2025 1:40 PM EMPLOYMENT MANAGER Office Visit [facility] [address] [place] [phone] Wili Solomon MD [address] [place] [address] Discharge Disposition: Discharged to home or Selfcare [...] PM CDT [facility] - Crisis Services Mental Health Services Stress Recommended 01/15/2025 12:04 PM CDT [employer] - Foreclosure Prevention Program Help Hotlines Stress Recommended 01/15/2025 12:04 PM CDT [place] [facility] Housing Insecurity Needs Utilities Recommended 01/15/2025 12:01 PM CDT [facility] ([facility]) - [facility] (Housing, Utilities, Basic Needs) Help Find Housing Housing Stability Recommended 01/15/2025 12:01 PM CDT [facility] Help Find Housing, [place] [employer] Housing, Residential Housing Housing Stability Recommended 01/15/2025 12:01 PM CDT [facility] Emergency Food Food Insecurity Recommended 01/15/2025 11:59 AM CDT [facility] Food Pantry Food Insecurity Recommended 01/15/2025 11:59 AM CDT [facility] [place] Food Pantry Food Insecurity Recommended 01/15/2025 11:[address] [facility] - Food Pantry Food Pantry Food Insecurity Recommended 01/15/2025 11:59 AM CDT [employer] - Food Pantry Food Pantry Food Insecurity Recommended 01/15/2025 11:59 AM CDT from Last 12 Months Procedures Procedure Name Priority Date/Time Associated Diagnosis Comments US ABDOMEN LIMITED LEVEL 3 THREE ORGAN Stat with Interpretation 04/19/2025 2:52 PM CDT URINALYSIS REFLEX IF INDICATED BY ABNORMAL RESULTS STAT 04/19/2025 2:05 PM CDT GOLD TOP TUBE STAT 04/19/2025 12:55 PM CDT BLUE TOP TUBE STAT 04/19/2025 12:55 PM CDT CBC WITH AUTO DIFFERENTIAL STAT 04/19/2025 12:55 PM CDT EXTRA TUBES STAT 04/19/2025 12:55 PM CDT CMP (COMPREHENSIVE METABOLIC PANEL) STAT 04/19/2025 12:55 PM CDT COMPLETE BLOOD COUNT (CBC) WITH DIFF STAT 04/19/2025 12:[address] CHEST W CONTRAST Routine 03/19/2025 10:38 AM CDT Nodule of right lung from Last 3 Months Results * US ABDOMEN LIMITED LEVEL 3 THREE ORGAN (04/19/2025 2:52 PM CDT) Anatomical Region Laterality Modality Abdomen N/A Ultrasound 04/19/2025 2:52 PM CDT Impressions 04/19/2025 3:31 PM CDT IMPRESSION: Focal adenomyomatosis of the gallbladder fundus. No acute sonographic abnormality. Narrative 04/19/2025 3:31 PM CDT US ABDOMEN LIMITED LEVEL 3 THREE ORGAN : 04/19/2025 2:52 PM DICTATING PHYSICIAN: Renzo Soares MD, [facility]. HISTORY: As below. ADDITIONAL TECHNOLOGIST HISTORY: RUQ, + murphys COMPARISON: 03/22/2025 TECHNIQUE: Grayscale, color flow ultrasound examination of the right upper quadrant was performed including evaluation of the liver, gallbladder and visualized pancreas. . FINDINGS: Liver: Normal echotexture without focal lesion or intrahepatic bile duct dilatation. The main portal vein is patent. Gallbladder: Partially contracted. No stones, sludge, wall thickening, pericholecystic fluid or sonographic Hernandez's sign. There is focal comet tail artifact of the gallbladder fundus indicating adenomyomatosis. Common bile duct: 5 mm. Pancreas: Normal echotexture with no focal lesion or pancreatic ductal dilatation. Right renal length 11.4 cm. Procedure Note Renzo Lara MD - 04/19/2025 US ABDOMEN LIMITED LEVEL 3 THREE ORGAN : 04/19/2025 2:52 PM DICTATING PHYSICIAN: Renzo Soares MD, [facility]. HISTORY: As below. ADDITIONAL TECHNOLOGIST HISTORY: RUQ, + murphys COMPARISON: 03/22/2025 TECHNIQUE: Grayscale, color flow ultrasound examination of the right upper quadrantwas performed including evaluation of the liver, gallbladder andvisualized pancreas. . FINDINGS: Liver: Normal echotexture without focal lesion or intrahepatic bile ductdilatation. The main portal vein is patent. Gallbladder: Partially contracted. No stones, sludge, wall thickening,pericholecystic fluid or sonographic Hernandez's sign. There is focal comettail artifact of the gallbladder fundus indicating adenomyomatosis. Common bile duct: 5 mm. Pancreas: Normal echotexture with no focal lesion or pancreatic ductaldilatation. Right renal length 11.4 cm. IMPRESSION: Focal adenomyomatosis of the gallbladder fundus. No acute sonographicabnormality. us Anirudh Paredesn PAC IMG US ORDERABLES Fi nal Result * URINALYSIS REFLEX IF INDICATED BY ABNORMAL RESULTS (04/19/2025 2:05 PM CDT) SPECIFIC GRAVITY 1.010 1.003 - 1.030 04/19/2025 2:41 PM CDT [facility] URINE PH 7.0 5.0 - 9.0 04/19/2025 2:41 PM CDT [facility] WBC ESTERASE Negative Negative 04/19/2025 2:41 PM CDT [facility] NITRITE Negative Negative 04/19/2025 2:41 PM CDT [facility] PROTEIN, RANDOM URINE Negative Negative 04/19/2025 2:41 PM CDT [facility] URINE GLUCOSE, QUAL Negative Negative 04/19/2025 2:41 PM CDT [facility] URINE KETONES Negative Negative 04/19/2025 2:41 PM CDT [facility] UROBILINOGEN Normal Normal mg/dL 04/19/2025 2:41 PM CDT [facility] URINE BLOOD Negative Negative kendal/ul 04/19/2025 2:41 PM CDT [facility] URINALYSIS COLOR Yellow 04/19/20 2:41 PM CDT [facility] URINALYSIS CLARITY Clear 04/19/2025 2:41 PM CDT [facility] Urine URINE SPECIMEN OBTAINED BY CLEAN CATCH PROCEDURE / Unknown Non-Phlebotomy Collection / Unknown 04/19/2025 2:05 PM CDT 04/19/2025 2:14 PM CDT Aubrey Steven MD URINE ORDERABLES Final R esult [facility] [address] [place] [address] * Gold Top Tube (04/19/2025 12:55 PM CDT) Blood No Phlebotomy Charged / Unknown 04/19/2025 12:55 PM CDT 04/19/2025 1:53 PM CDT Aubrey Steven MD CHEMISTRY ORDERABLES Fin al Result Performing Organization Address City/[facility]/ZIP Co de Phone Number [facility] [address] [place] [address] * Blue Top Tube (04/19/2025 12:55 PM CDT) Blood No Phlebotomy Charged / Unknown 04/19/2025 12:55 PM CDT 04/19/2025 1:53 PM CDT Aubrey Steven MD HEMATOLOGY ORDERABLES Fi nal Result Performing Organization Address [facility] Co de Phone Number [facility] [address] [place] [address] * (ABNORMAL) CBC with Auto Differential (04/19/2025 12:55 PM CDT) WBC 8.22 4.00 - 12.00 10(3)/mcL 04/19/2025 1:56 PM CDT [facility] RBC 4.56 3.80 - 5.30 10(6)/mcL 04/19/2025 1:56 PM CDT [facility] HEMOGLOBIN (HGB) 13.5 12.0 - 15.8 g/dL 04/19/2025 1:56 PM CDT [facility] HEMATOCRIT (HCT) 39.4 36.0 - 47.0 % 04/19/2025 1:56 PM CDT [facility] MCV 86.4 82.0 - 96.0 fL 04/19/2025 1:56 PM CDT [facility] MCH 29.6 26.0 - 34.0 pg 04/19/2025 1:56 PM CDT [facility] MCHC 34.3 31.0 - 36.0 g/dL 04/19/2025 1:56 PM CDT [facility] PLATELET COUNT 277 140 - 440 10(3)/mcL 04/19/2025 1:56 PM CDT [facility] RDW 12.5 11.8 - 15.5 % 04/19/2025 1:56 PM CDT [facility] MPV 11.0 9.7 - 12.4 fL 04/19/2025 1:56 PM CDT [facility] NEUTROPHILS 63.5 47.0 - 73.0 % 04/19/2025 1:56 PM CDT [facility] LYMPHOCYTES 27.1 18.0 - 42.0 % 04/19/2025 1:56 PM CDT [facility] MONOCYTES 7.3 4.0 - 12.0 % 04/19/2025 1:56 PM CDT [facility] EOSINOPHILS 1.0 0.0 - 5.0 % 04/19/2025 1:56 PM CDT [facility] BASOPHILS 0.6 0.0 - 1.0 % 04/19/2025 1:56 PM CDT [facility] IMMATURE GRANULOCYTE 0.5(H) 0.0 - 0.4 % 04/19/2025 1:56 PM CDT [facility] Comment:Immature Granulocyte s includes Metamyelocytes, Myelocytes, and Promyelocytes. ABSOLUTE NEUTROPHILS 5.22 1.60 - 7.70 10(3)/mcL 04/19/2025 1:56 PM CDT [facility] ABSOLUTE LYMPHOCYTES 2.23 1.30 - 3.20 10(3)/mcL 04/19/2025 1:56 PM CDT [facility] ABSOLUTE MONOCYTES 0.60 0.20 - 1.00 10(3)/mcL 04/19/2025 1:56 PM CDT [facility] ABSOLUTE EOSINOPHIL 0.08 0.00 - 0.40 10(3)/mcL 04/19/2025 1:56 PM CDT [facility] ABSOLUTE BASOPHILS 0.05 0.00 - 0.10 10(3)/mcL 04/19/2025 1:56 PM CDT [facility] ABSOLUTE IMMATURE GRANULOCYTE 0.04(H) 0.00 - 0.03 10 (3) mcL. 04/19/2025 1:56 PM CDT [facility] NRBC PER 100 WBC 0 04/19/20 1:56 PM CDT [facility] Blood Venipuncture / Unknown 04/19/2025 12:55 PM CDT 04/19/2025 1:52 PM CDT us Aubrey Steven MD HEMATOLOGY ORDERABLES Fi nal Result [facility] [address] [place] [address] * (ABNORMAL) Comprehensive Metabolic Panel (Cmp) [id number] (04/19/2025 12:55 PM CDT) SODIUM 140 136 - 145 mmol/L 04/19/2025 2:12 PM CDT [facility] POTASSIUM 3.6 3.5 - 5.1 mmol/L 04/19/2025 2:12 PM CDT [facility] CHLORIDE 110(H) 98 - 107 mmol/L 04/19/2025 2:12 PM CDT [facility] CO2, VENOUS 21(L) 22 - 30 mmol/L 04/19/2025 2:12 PM CDT [facility] ANION GAP 12.6 <18.0 mmol/L 04/19/2025 2:12 PM CDT [facility] GLUCOSE 85 70 - 99 mg/dL 04/19/2025 2:12 PM CDT [facility] BUN 12 5 - 18 mg/dL 04/19/2025 2:12 PM CDT [facility] CREATININE, BLOOD 0.67 0.60 - 1.00 mg/dL 04/19/2025 2:12 PM CDT [facility] BUN/CREATININE RATIO 18 12 - 20 ratio 04/19/2025 2:12 PM CDT [facility] TOTAL PROTEIN 6.7 6.0 - 8.0 g/dL 04/19/2025 2:12 PM CDT [facility] ALBUMIN 4.4 3.5 - 5.0 g/dL 04/19/2025 2:12 PM CDT [facility] A/G RATIO 1.9 1.0 - 2.2 04/19/2025 2:12 PM CDT [facility] CALCIUM 9.1 8.7 - 10.5 mg/dL 04/19/2025 2:12 PM CDT [facility] T BILI 0.3 0.2 - 1.2 mg/dL 04/19/2025 2:12 PM CDT [facility] SGOT (AST) 10 <43 U/L 04/19/2025 2:12 PM T [facility] SGPT (ALT) 12 <56 U/L 04/19/2025 2:12 PM T [facility] ALKALINE PHOSPHATASE 46 40 - 150 U/L 04/19/2025 2:12 PM T [facility] GFR, ESTIMATED >60 >=60 04/19/2025 2:12 PM T [facility] Comment: Creatinine Clearance is the preferred criteria for selecting drug dose adjustments in renally impaired patients. The GFR is provided as additional pertinent clinical information. GFR is reported in mL/min/1.73 sq m. Calculation based on the 2020 Chronic Kidney Disease Epidemiology Collaboration (CKD-EPI) equation refit without adjustment for race. GFR, EST. >60 >=60 2:12 PM CDT [facility] Comment: Creatinine Clearance is the preferred criteria for selecting drug dose adjustments in renally impaired patients. The GFR is provided as additional pertinent clinical information. GFR is reported in mL/min/1.73 sq m. Calculation based on the 2009 Chronic Kidney Disease Epidemiology Collaboration (CKD-EPI). GFR, EST. NONAFRICAN >60 >=60 04/19/2025 2:12 PM CDT [facility] Comment: Creatinine Clearance is the preferred criteria for selecting drug dose adjustments in renally impaired patients. The GFR is provided as additional pertinent clinical information. GFR is reported in mL/min/1.73 sq m. Calculation based on the 2009 Chronic Kidney Disease Epidemiology Collaboration (CKD-EPI). Blood Venipuncture / Unknown 04/19/2025 12:55 PM CDT 04/19/2025 1:52 PM CDT us Aubrey Steven MD CHEMISTRY ORDERABLES Fin al Result [facility] [address] [place] [address] * CT CHEST W CONTRAST (03/19/2025 10:38 AM CDT) Anatomical Region Laterality Modality Chest N/A Computed Tomogra phy 03/19/2025 10:3 8 AM CDT Impressions 03/19/2025 11:43 AM CDT IMPRESSION: Resolution of right middle lobe infiltrates. No new suspicious lung nodules. Narrative 03/19/2025 11:[address] CHEST W CONTRAST : 03/19/2025 10:38 AM DICTATING PHYSICIAN: EMELY CABALLERO, [facility]. HISTORY: As below. ADDITIONAL TECHNOLOGIST [...] 03/19/2025 10:38 AM DICTATING PHYSICIAN: EMELY CABALLERO [facility]. HISTORY: As below. ADDITIONAL TECHNOLOGIST HISTORY: [...] No new suspicious lungnodules. us Cinthia Noriega APRN, [place] IMG CT ORDERABLES Brit escoto Result from Last 3 Months Insurance MEDICAID [employer] Care Teams Rf Design Engineer Relationship Specialty Start Date End Date Mervin Kevin MD [address] [place] [id number] PCP - General Family Medicine 11/21/24
--- OUTSIDE RECORDS SUMMARY | 2025-04-24 00:52 | XMS_ITS | Clinical Summary ---
Author Organization [facility] Address [address] [place] [address] Care Team Providers Care Dustless Operator Name Role Phone Unavailable Primary Care Provider [...] ipratropium bromide (ATROVENT) 42 mcg (0.06 %) [place], Non-Aerosol INSTILL 1 SPRAY INTO THE NOSTRILS [...] on file Legal Sex Female 10:24 AM COMMUNITY HEALTH AGENT Gender Identity Not on file Sexual Orientation [...]
[2025-04-24 12:22] VITALS: BP 107/59; PULSE 69; RESP 16; TEMP 36.5; O2SAT 100; BMI 25.7
[2025-04-24] MEDS: SIMETHICONE ORAL SUSPENSION 20 MG/0.3 ML 30 ML BOTTLE 1.8 ML PO (12:27)
[2025-04-24] MEDS: LACTATED RINGERS 1,000 ML 150 ML IV CONT (12:38)
[2025-04-24 12:41] LABS: BEDSIDEPREGUCG Negative (Negative)
--- NOTE | 2025-04-24 13:24 | WPDANESEPPF ---
Anes - Initial Pre Proc Eval Procedure: Operation Date: 04/24/25 14:30 Proposed Procedures p Esophagogastroduodenoscopy - Ajay Sullivan MD Date/Time: 04/24/25 13:24 Surgeon: Ajay Sullivan MD Pre Op Diagnosis: Gastro-esophageal reflux disease without esophagit Patient Data Age: 34 Gender: F Height: 1.7 m Weight: 74.5 kg Last Vital Signs Temp 97.7 F 04/24/25 12:22 Pulse 69 04/24/25 12:22 Resp 16 04/24/25 12:22 BP 107/59 L 04/24/25 12:22 Pulse Ox 100 04/24/25 12:22 O2 Del Method Room Air 04/24/25 12:22 Allergies Allergy/AdvReac Type Severity Reaction Status Date / Time nitrofurantoin (From Allergy Severe Swelling Verified 04/24/25 12:19 Macrobid) of Lip/Tongue/Throat Home Medications ?Medication ?Instructions ?Recorded ?Confirmed ?Type duloxetine 60 mg capsule,delayed 60 mg PO DAILY 11/09/19 04/19/25 History release albuterol sulfate 90 mcg/actuation 1 puff inhalation Q4-6H PRN 09/10/22 04/19/25 History aerosol inhaler Shortness Of Breath Or Wheezing metoprolol succinate 50 mg 50 mg PO Q12H 09/10/22 04/24/25 History tablet,extended release 24 hr blood-gluc meter-wrist BP mntr 09/17/22 04/18/25 History (2Tek Glucose/Blood Pressure kit) fluticasone propionate 50 1 spray intranasal DAILY 09/17/22 04/24/25 History mcg/actuation nasal spray,suspension (Flonase Allergy Relief) ergocalciferol (vitamin D2) 1,250 50,000 mcg PO WEEKLY 10/04/22 04/24/25 History mcg (50,000 unit) capsule ferrous sulfate 325 mg (65 mg 325 mg PO BID 10/13/22 04/19/25 History iron) tablet acetaminophen 500 mg tablet 500 mg PO Q6H PRN pain #30 tabs 11/18/22 04/19/25 Rx sumatriptan succinate 25 mg tablet 25 mg PO .COMPLEX 12/06/22 04/19/25 History calcium carbonate (Calcium 600) 600 mg PO DAILY 08/10/23 04/19/25 History aspirin 81 mg chewable tablet 81 mg PO DAILY 09/23/23 04/19/25 History Held on 04/19/25. Instructions: .Provider Order diazepam 10 mg tablet 10 mg PO QHS PRN anxiety 10/29/24 04/19/25 History escitalopram oxalate 10 mg tablet 10 mg PO HS 12/24/24 04/24/25 History fluticasone 250 mcg-salmeterol 50 1 inh inhalation Q12H 12/24/24 04/24/25 History mcg/dose blistr powdr for inhalation hydrocortisone 2.5 % topical cream 1 applic topical DAILY 12/24/24 04/19/25 History with perineal applicator apixaban 5 mg tablet (Eliquis) 5 mg PO BID 1 month #60 tabs 12/27/24 04/24/25 Rx linaclotide 72 mcg capsule 72 mcg PO DAILY 1 month #30 caps 01/16/25 04/24/25 Rx (Linzess) famotidine 20 mg tablet See Rx Instructions .Route 02/12/25 04/24/25 Rx .COMPLEX #60 tabs calcium 500 mg (as 1 tablet PO DAILY 04/19/25 04/24/25 History carbonate)-vitamin D3 5 mcg (200 unit) tablet cranberry duze-C-iyyjmmyq coag 450 2 tablet PO DAILY 04/19/25 04/24/25 History mg-30 mg-50 million cell tablet (Nohcgxsab-Tqckxalmr-Hxlzxum C) cyclobenzaprine 10 mg tablet 10 mg PO HS 04/19/25 04/19/25 History hydrocortisone 1 % topical cream 1 applic topical DAILY PRN 04/19/25 04/19/25 History with perineal applicator hemorrhoids ipratropium bromide 42 mcg (0.06 1 spray intranasal DAILY congestion 04/19/25 04/19/25 History %) nasal spray valacyclovir 500 mg tablet 500 mg PO Q12H 04/19/25 04/24/25 History (Valtrex) vonoprazan 20 mg (28)-amoxicillin 1 pkg PO PER PKG DIR 04/19/25 04/19/25 History 500 mg (84) oral combo pack (Voquezna Dual Darryn) Laboratory Tests 04/24/25 04/24/25 12:32 12:39 POC Capillary Glucose 82 mg/dl (65-105) POC Urine HCG, Qual Negative (Negative) Patient hx anesthesia problems: none Family hx anesthesia problems: none Results Review: All pre-operative results and documents have been reviewed as part of the pre-operative evaluation. [facility] Past Medical History Medical History H. pylori infection Hepatomegaly Hypothyroidism Degenerative disc disease Kidney stones Pericarditis Paroxysmal atrial fibrillation Peptic ulcer Migraine Depression with anxiety Chronic obstructive pulmonary disease HSV-2 infection HSV-1 infection Irritable bowel syndrome with constipation Gastroesophageal reflux disease Esophagitis Anemia Bipolar 1 disorder Surgical History Surgical History History of cardiac catheterization History of gynecologic surgery (10/2022) Laparoscopic bilateral salpingectomy Hysterectomy Dilation and curettage Endometrial ablation H/O hand surgery History of delivery x2 Family History Family History Father Diabetes mellitus Heart disease Social History Social History Social History: Surrogate medical decision maker: Miguel Castellano significant other. Code status: Full code. Smoking packs per day: 2 Smoking cigarettes per day: 40.0 Years smoked: 16 Smoking pack-years: 32.00 Smoking status: Former smoker Tobacco type: cigarettes Smoking end date: 03/27/22 Additional smoking assessment comments: VAPES OCC. Alcohol intake: current Drinks per week: 1 Alcohol use details: Rare alcohol use in moderation. Substance use: current Substance use type: marijuana Other substance usage details: DAILY Last use: 12/22/24 Do You Feel Safe in your Home?: Yes Lack of Transportation: No Lack of Food: Never True Current Housing: I Have Housing Concerned About Future Housing: No Difficulty Paying Gas/Electric Bills: YES Difficulty Paying for Meds: No Currently Unemployed: YES Education: High School Diploma/GED Difficulty w/ Childcare or Family Care: No Living arrangements: with family Additional living arrangements comments: Lives with maria a and her 6 children. Occupation/Education: occupation Spiritual care concerns: No Anes - Eval Final PreProcedure Day of Procedure 04/24/25 13:24 Patient weight: overweight Lungs: normal air movement Airway: Mallampati scale class II and special considerations (Teeth in poor condition,,many missing, none loose per pt. ) Neurological: alert and oriented Last oral intake: >/= 8 hours ASA classification: IV Emergent: no Anesthetic plan: proceed Anesthesia type and monitoring: general GIVS and standard monitoring Results Review: All pre-operative results and documents have been reviewed as part of the pre-operative evaluation. Complicated hx reviewed. Pt w hx of smoking, quit 2021, DM fsbs 82, thrombosis splenic portal v, AC on hold for EGD, hx of afib, now NSR. Blood Bank Laboratory Technician notes reviewed and appreciated. Informed Consent: The patient's anesthetic plan and its attendant risks and benefits were discussed with the patient/family/POA. Questions were solicited and answers provided to the satisfaction of the patient/family/POA.
--- NOTE | 2025-04-24 13:34 | PM.IMHP ---
H&P: HPI History of Present Illness Date/Time: 04/24/25 13:34 Chief Complaint: UQXK-jsunmy-baohxeaue H pylori infection. Narrative: The patient has a complex history characterized by recurrent episodes of nausea, occasionally associated with vomiting. She has been treated for H.pylori twice and apparently not eradicated. She is now referred for EGD. Review of Systems Review of Systems: All systems reviewed & are unremarkable except as noted in HPI and below PMFSH Past Medical History Medical History H. pylori infection Hepatomegaly Hypothyroidism Degenerative disc disease Kidney stones Pericarditis Paroxysmal atrial fibrillation Peptic ulcer Migraine Depression with anxiety Chronic obstructive pulmonary disease HSV-2 infection HSV-1 infection Irritable bowel syndrome with constipation Gastroesophageal reflux disease Esophagitis Anemia Bipolar 1 disorder Surgical History Surgical History History of cardiac catheterization History of gynecologic surgery (10/2022) Laparoscopic bilateral salpingectomy Hysterectomy Dilation and curettage Endometrial ablation H/O hand surgery History of delivery x2 Family History Family History Father Diabetes mellitus Heart disease Social History Social History Social History: Surrogate medical decision maker: Miguel Castellano, significant other. Code status: Full code. Smoking packs per day: 2 Smoking cigarettes per day: 40.0 Years smoked: 16 Smoking pack-years: 32.00 Smoking status: Former smoker Tobacco type: cigarettes Smoking end date: 03/27/22 Additional smoking assessment comments: VAPES OCC. Alcohol intake: current Drinks per week: 1 Alcohol use details: Rare alcohol use in moderation. Substance use: current Substance use type: marijuana Other substance usage details: DAILY Last use: 12/22/24 Do You Feel Safe in your Home?: Yes Lack of Transportation: No Lack of Food: Never True Current Housing: I Have Housing Concerned About Future Housing: No Difficulty Paying Gas/Electric Bills: YES Difficulty Paying for Meds: No Currently Unemployed: YES Education: High School Diploma/GED Difficulty w/ Childcare or Family Care: No Living arrangements: with family Additional living arrangements comments: Lives with maria a and her 6 children. Occupation/Education: occupation Spiritual care concerns: No Meds Home Medications and Allergies Home Medications ?Medication ?Instructions ?Recorded ?Confirmed ?Type duloxetine 60 mg capsule,delayed 60 mg PO DAILY 11/09/19 04/19/25 History release albuterol sulfate 90 mcg/actuation 1 puff inhalation Q4-6H PRN 09/10/22 04/19/25 History aerosol inhaler Shortness Of Breath Or Wheezing metoprolol succinate 50 mg 50 mg PO Q12H 09/10/22 04/24/25 History tablet,extended release 24 hr blood-gluc meter-wrist BP mntr 09/17/22 04/18/25 History (2Tek Glucose/Blood Pressure kit) fluticasone propionate 50 1 spray intranasal DAILY 09/17/22 04/24/25 History mcg/actuation nasal spray,suspension (Flonase Allergy Relief) ergocalciferol (vitamin D2) 1,250 50,000 mcg PO WEEKLY 10/04/22 04/24/25 History mcg (50,000 unit) capsule ferrous sulfate 325 mg (65 mg 325 mg PO BID 10/13/22 04/19/25 History iron) tablet acetaminophen 500 mg tablet 500 mg PO Q6H PRN pain #30 tabs 11/18/22 04/19/25 Rx sumatriptan succinate 25 mg tablet 25 mg PO .COMPLEX 12/06/22 04/19/25 History calcium carbonate (Calcium 600) 600 mg PO DAILY 08/10/23 04/19/25 History aspirin 81 mg chewable tablet 81 mg PO DAILY 09/23/23 04/19/25 History Held on 04/19/25. Instructions: .Provider Order diazepam 10 mg tablet 10 mg PO QHS PRN anxiety 10/29/24 04/19/25 History escitalopram oxalate 10 mg tablet 10 mg PO HS 12/24/24 04/24/25 History fluticasone 250 mcg-salmeterol 50 1 inh inhalation Q12H 12/24/24 04/24/25 History mcg/dose blistr powdr for inhalation hydrocortisone 2.5 % topical cream 1 applic topical DAILY 12/24/24 04/19/25 History with perineal applicator apixaban 5 mg tablet (Eliquis) 5 mg PO BID 1 month #60 tabs 12/27/24 04/24/25 Rx linaclotide 72 mcg capsule 72 mcg PO DAILY 1 month #30 caps 01/16/25 04/24/25 Rx (Linzess) famotidine 20 mg tablet See Rx Instructions .Route 02/12/25 04/24/25 Rx .COMPLEX #60 tabs calcium 500 mg (as 1 tablet PO DAILY 04/19/25 04/24/25 History carbonate)-vitamin D3 5 mcg (200 unit) tablet cranberry digx-V-ksurwame coag 450 2 tablet PO DAILY 04/19/25 04/24/25 History mg-30 mg-50 million cell tablet (Typcszksc-Wdvumfjby-Viwgzne C) cyclobenzaprine 10 mg tablet 10 mg PO HS 04/19/25 04/19/25 History hydrocortisone 1 % topical cream 1 applic topical DAILY PRN 04/19/25 04/19/25 History with perineal applicator hemorrhoids ipratropium bromide 42 mcg (0.06 1 spray intranasal DAILY congestion 04/19/25 04/19/25 History %) nasal spray valacyclovir 500 mg tablet 500 mg PO Q12H 04/19/25 04/24/25 History (Valtrex) vonoprazan 20 mg (28)-amoxicillin 1 pkg PO PER PKG DIR 04/19/25 04/19/25 History 500 mg (84) oral combo pack (Voquezna Dual Darryn) Allergies Allergy/AdvReac Type Severity Reaction Status Date / Time nitrofurantoin (From Allergy Severe Swelling Verified 04/24/25 12:19 Macrobid) of Lip/Tongue/Throat Vital Signs Vital Signs - 24 hr 04/24/25 12:22 Temperature 97.7 F Pulse Rate 69 Respiratory Rate 16 Blood Pressure 107/59 L Pulse Oximetry 100 Oxygen Delivery Room Air Exam Const: General: cooperative and healthy appearing Resp: Effort & Inspection: normal respiratory effort and able to speak in complete sentences Auscultation: clear to auscultation bilaterally Cardio: Rate: regular rate Rhythm: regular rhythm GI: Inspection: normal to inspection GI Palp: No No hepatosplenomegaly present Auscultation: normal bowel sounds Rectal Exam: deferred Skin: General skin exam: normal color Psych: Appearance: grossly normal Mental Status: mental status grossly normal Assessment and Plan Assessment and plan (1) GERD (gastroesophageal reflux disease): Code(s): K21.9 - Gastro-esophageal reflux disease without esophagitis Status: Acute Assessment and Plan: The patient is deemed a good candidate for the procedure. Consent signed. Will proceed.
[2025-04-24] MEDS: BENZOCAINE (*SP) 60 ML SPRAY CAN (HURRICAINE) 1 SPRAY MUCOUS MEM (13:40)
--- NOTE | 2025-04-24 13:47 | S_PTH ---
PATIENT: Yu Sanchez LOC: [facility] U#:[id number] AGE/SX: 34/F ROOM: RE04/24/[address]: Ajay Sullivan MD : 1990 BED: DIS: 04/24/2025 SPEC #: [id number] RECD: 04/25/25 07:12 STATUS: LIZETT REQ #: [id number] KATALINA: 04/24/25 13:[address]: Ajay Sullivan DEPT: [facility] Surgical RECD BY: Amy Ortiz ENTERED: 04/25/25 07:13 SP TYPE: Surgical OTHR DR: Mervin Kevin MD Tissues: A - Gastric Biopsy B - Gastric Biopsy C - Esophageal Biopsy Procedures: Hematoxylin and Eosin Stain Gross and Microscopic Level 4
[2025-04-24 13:48] VITALS: BP 96/54; PULSE 79; RESP 16; O2SAT 99
[2025-04-24 13:58] VITALS: BP 95/54; PULSE 64; RESP 13; O2SAT 100
[2025-04-24 14:08] VITALS: BP 103/64; PULSE 71; RESP 16; O2SAT 100
== END 2025-04-24 14:23 | disposition home or self-care (01) ==
PROVIDERS: PCP Emergency Medicine; Referring Provider Nurse Practitioner Family; Visit Provider Internal Medicine Gastroenterology
PROC: 0DJ08ZZ Inspection of Upper Intestinal Tract, Via Natural or Artificial Opening Endoscopic (ICD-10-PCS; CPT 43239; principal; 2025-04-24 14:30)
DX: K21.9 Gastro-esophageal reflux disease without esophagitis (principal); K29.50 Unspecified chronic gastritis without bleeding; B96.81 Helicobacter pylori [H. pylori] as the cause of diseases classified elsewhere; D64.9 Anemia, unspecified; E03.9 Hypothyroidism, unspecified; J44.9 Chronic obstructive pulmonary disease, unspecified; K58.1 Irritable bowel syndrome with constipation; F41.8 Other specified anxiety disorders; F31.9 Bipolar disorder, unspecified; M51.9 Unspecified thoracic, thoracolumbar and lumbosacral intervertebral disc disorder; I48.0 Paroxysmal atrial fibrillation; R16.0 Hepatomegaly, not elsewhere classified; I31.9 Disease of pericardium, unspecified; F17.290 Nicotine dependence, other tobacco product, uncomplicated; F12.90 Cannabis use, unspecified, uncomplicated; Z79.51 Long term (current) use of inhaled steroids; Z79.82 Long term (current) use of aspirin; Z79.01 Long term (current) use of anticoagulants; Z98.890 Other specified postprocedural states; Z98.61 Coronary angioplasty status; Z98.891 History of uterine scar from previous surgery; Z87.11 Personal history of peptic ulcer disease; Z87.442 Personal history of urinary calculi; Z82.49 Family history of ischemic heart disease and other diseases of the circulatory system
CPT/HCPCS: 43239; 82948; 88305; J2003; J2704; J7120

== ENCOUNTER 2025-05-06 08:14 | Outpatient (CLI) | payer OTHER, SELFPAY ==
--- OUTSIDE RECORDS SUMMARY | 2004-05-20 07:30 | XMS_ITS | Continuity of Care Document ---
Author Organization [facility] Address [address] [facility] [address] [place] [address] Phone Care Team Providers Care Development Mgr Name Role Phone Rausch OD, Erasmo Unavailable Unavailable Advance Directives Directive Yes / No Effective Date File Name No Information Encounters Encounter Description Practice Location Reason(s) For Visit Diagnoses Date Provider Providers Copied on Encounter [facility], [address], [place], [place], [id number], [place] tel:[phone] [facility] [place] No Information Apr- 4-200 4 Rausch OD Erasmo. [address] , [address], [place], [address], [place]. tel:[phone] Family History Family Member Type Diagnosis Age At Onset No Information Payers Payer name Insurance type Covered democrat ID Authoriza tion(s) Medicaid [facility] [id number] Social History Type Description Quantity Date Captured Comments Sex Female Smoking Status No Information Chief Complaint And Reason For Visit No Information Reason For Referral Reason For Referral No Information History Of Present Illness Encounter Date Complaint History Of Prese nt Illness No Information Functional Status Date Functional Assessmen t No Information Instructions Date Instruction Additional Infor mation No Information Assessments Type Assessment Date No Information Patient Care Teams Name Effective Dates (start - stop) Status Members No Information
--- OUTSIDE RECORDS SUMMARY | 2023-09-14 04:45 | XMS_ITS | Continuity of Care Document ---
Author Organization [facility] Address [address] [address] Phone Care Team Providers Care Business Records Manager Name Role Phone Pinky Daniels MD Unavailable Unavailable Allergies, Adverse Reactions, Alerts Substance Reaction Status Criticality nitrofurantoin HivesHivesDifficulty breathing Active No Information Medications Medication Instructions Dosage Effective Dates (start - stop) Status Comments Breztri Aerosphere 160 mcg-9mcg-4.8mcg/actu ation HFA aerosol inhaler inhale 2 puff by inhalation route 2 times every day in the morning and evening 2.00 puff - Active ipratropium bromide 21 mcg (0.03 %) nasal spray spray 2 spray by intranasal route 2- 3 times every day in each nostril 2.00 spray - Active Flonase Allergy Relief 50 mcg/actuation nasal spray,suspension spray 2 spray by intranasal route every day in each nostril 100-100 MCG - Active Procedures Procedure Date Est (Level 4) OFFICE/OUTPATIENT VISIT Oc Est (Level 3) OFFICE/OUTPATIENT VISIT Ap Est (Level 4) OFFICE/OUTPATIENT VISIT Ma Health Risk Assesment Patient Focused Fe New (Level 4) OFFICE/OUTPATIENT VISIT Fe Advance Directives Directive Yes / No Effective Date File Name No Information Encounters Encounter Description Practice Location Reason(s) For Visit Diagnoses Date Provider Providers Copied on Encounter [facility], [address], [id number], [place] tel:[phone] [facility] No Information [address], [place], [address], [place]. tel:[phone] Referring Provider: Mervin Kevin, [address] [place] [address], [address]. tel:[phone] Est (Level 4) OFFICE/OUTPA TIENT VISIT [facility], [address] [place] [address], [id number], [place] tel:[phone] [facility] allergy symptoms (chief complaint) Recurrent acute suppurative otitis media w/o spontaneous rupture of ear drum of earOther allergic rhinitisSevere persistent asthmaAbnormal results of function studies of other [facility] 2 [address] Cheshil. [address], [place], [address], [place]. tel:[phone] Referring Provider: Mervin Kevin, [address] [place] [address], [address]. tel:[phone] Est (Level 3) OFFICE/OUTPA TIENT VISIT [facility], [address] [place] [address], [id number], [place] tel:[phone] [facility] recurrent infections (chief complaint) Recurrent acute suppurative otitis media w/o spontaneous rupture of ear drum of earOther allergic rhinitisSevere persistent asthmaAbnormal results of function studies of other systems 0 [address], [place], [address], [place]. tel:[phone] Referring Provider: Ruslan Reid, [address] [facility] [address], [place], [address]. tel:[phone] Est (Level 4) OFFICE/OUTPA TIENT VISIT [facility], [address] [place] [address], [id number], [place] tel:[phone] [facility] recurrent infections (chief complaint) Recurrent acute suppurative otitis media w/o spontaneous rupture of ear drum of earSevere persistent asthmaOther allergic rhinitisAbnorma l results of function studies of other systems [address]. [address], [place], [address], [place]. tel:[phone] Referring Provider: Ruslan Reid, [address] [facility] [address], [place], [address]. tel:[phone] New (Level 4) OFFICE/OUTPA TIENT VISIT [facility], [address] [place] [address], [id number], [place] tel:[phone] [facility] recurrent infections (chief complaint) Recurrent acute suppurative otitis media w/o spontaneous rupture of ear drum of earSevere persistent asthmaOther allergic rhinitis Fe-0 3 Frances Cheshil. [address], [place], [address], [place]. tel:[phone] Referring Provider: Ruslan Reid, [address] [facility] [address], [place], [address]. tel:[phone] Family History Family Member Type Diagnosis Age At Onset Paternal aunt Problem rheumatoid arthritis Father Problem Allergic rhinitis Brother Problem Asthma Paternal aunt Problem Lupus erythematosus Sister Problem Asthma Paternal grandmother Problem Asthma Payers Payer name Insurance type Covered alliance party ID Authoriza timunir(s) [facility] [id number] Social History Type Description Quantity Date Captured Comments Alcohol Use Details Unknown Caffeine Use Details Unknown Tobacco Use Status No Information Smoking Status No Information Sex Female Chief Complaint And Reason For Visit No Information Reason For Referral Reason For Referral No Information Plan Of Treatment Date Type Action Status Future Order: Lab Order S. Pneum onia-23 Serotypes ([id number]), Sent on: Sent Future Order: Lab Order CBC With Diff ([id number]), Sent on: Sent Future Order: Lab Order ESR ([id number]), Sent o n: Sent Future Order: Lab Order CRP ([id number]), Sent on: Sent Future Order: Lab Order Comprehe nsive Metabolic Panel ([id number]), Sent on: Sent Future Order: Lab Order CBC With Differential ([id number]), Sent on: Sent Future Order: Lab Order Compleme nt Total (CH50) ([id number]), Sent on: Sent Future Order: Lab Order Immunogl obulins A/E/G/M, Serum ([id number]), Sent on: Sent Future Order: Lab Order Mannose Binding Lectin ([id number]), Sent on: Sent Future Order: Lab Order Strep Pn eumo 23 ([id number]), Sent on: Sent Future Order: Lab Order T- and B -Lymphocyte and Natural Killer Cell Profile ([id number]), Sent on: Sent Future Order: Lab Order Tetanus/ Diphtheria Antibody Profile ([id number]), Sent on: Sent History Of Present Illness Encounter Date Complaint History Of Prese nt Illness allergy symptoms LV: 10/14/22Harmony has recurrent infections, asthma, and AR. She presents for follow up.She reports a bad rash on her arm near the AC fossae. This has been present for 5 days. It is very pruritic. It is an annular, erythematous lesion. It is leaking fluid. The lesion is increasing in size. She is unsure about having had fevers. She has not been on antibiotics recently.She reports getting lesions like this in the past. They tend not to get that back. They occur and expand over 1 week, then peak and start to recede. She has never had a biopsy of the lesion. She has previously treated with steroids which was not very helpful. Recurrent InfectionsInterval Infections: Ramiro had Pneumovax on 09/02/22. She has not had post labs drawn yet.AsthmaShlyric is on Breztri 2 puffs twice daily and albuterol PRN (not used much when healthy). No nocturnal/exertional asthma symptoms. She reports 1 PCP visit for flared asthma symptoms while ill back in Feb 2023. She was treated with prednisone + azithromycin for that flare. Kevin is on Flonase 2 SEN daily. Her post-nasal drainage and congestion have now resolved. Neutrophilia: She saw hematology. They are continuing to follow up - visit tomorrow.She saw GI for gastritis and had an endoscopy. She is being treated with linzess. She is on protonix daily and pepcid 40 mg BID.Data10/15/22AH50 93ANC 5778Abs Eos 198IgG 1063IgA 142IgM 90IgE 408Spn Titers: decreased 08/19 = 91% protective(She had Pneumovax on 09/02/22)08/12/22IgIgA: 126IgM: 79IgE: 722AY21: 58AH50: (deferred)Anti-Spn 23: decreased 02/16 = 65% protectiveAnti-Diphtheria: 0.1 (protective)Anti-Tetanus: 1.17 (protective)AEC: 215AANC: 16,641Flow CytometryCD3+: 56% (L), 1612 (wnl)CD3+CD4+: 35%, 9669IC6+CD8+: 26%, 772CD4/CD8 Ratio: 1.33CD16+CD56+: 32% (H), 912 (H)CD19+: 10%, (poor scan quality, best interpretation listed)IgG 995*IgG1 594*IgG2 270*IgG3 74*IgG4 74Environmental Immunocaps: +HDM, cockroach, grass, trees, weeds other than ragweed with total IgE [id number] Phenotype: PI*MMTB Quant Gold: negativeHRCT Chest on 04/30/22*Near complete resolution of previously noted RML consolidatePFT 09/2021 showed FEV1 89% with positive bronchodilator response (360 mL, 15% improvement) recurrent infections LV: 09/02/22 he has recurrent infections, asthma, and AR. She presents for follow up.Recurrent InfectionsInterval Infections: noneHarmony had Pneumovax on 09/02/22. She has not had post labs drawn yet.Asthma - ACT: She is on Breztri 2 puffs twice daily and albuterol PRN (not used much when healthy). Kevin is on Flonase 2 SEN daily. Her post-nasal drainage and congestion have now resolved. Neutrophilia: She saw hematology. They were not able to discuss this at their last visit, with focus on her anemia.She saw GI for gastritis and had an endoscopy. They are planning a colonoscopy future.Data08/12/22IgIgA: 126IgM: 79IgE: 895CN49: 58AH50: (deferred)Anti-Spn 23: decreased 02/16 = 65% protectiveAnti-Diphtheria: 0.1 (protective)Anti-Tetanus: 1.17 (protective)AEC: 215AANC: 16,641Flow CytometryCD3+: 56% (L), 1612 (wnl)CD3+CD4+: 35%, 2058DS1+CD8+: 26%, 772CD4/CD8 Ratio: 1.33CD16+CD56+: 32% (H), 912 (H)CD19+: 10%, (poor scan quality, best interpretation listed)IgG 995*IgG1 594*IgG2 270*IgG3 74*IgG4 74Environmental Immunocaps: +HDM, cockroach, grass, trees, weeds other than ragweed with total IgE [id number] Phenotype: MMTB Quant Gold: negativeHRCT Chest on 04/30/22*Near complete resolution of previously noted RML consolidatePFT 09/2021 showed FEV1 89% with positive bronchodilator response (360 mL, 15% improvement) recurrent infections LV: 07/29/22S he has recurrent infections, asthma, and AR. She presents for follow up.Recurrent InfectionsInterval Infections: Bronchitis x 1She was at the ED on 09/01/22 for abdominal pain. She was treated with pain medications. She was started on pepcid and zofran. She relays a CT scan that showed abdominal distention. She is pending GI evaluation.AsthmaShe is on Breztri 2 puffs twice daily and albuterol PRN (not used much when healthy). She continues to have some exertional limitations, but symptoms have improved. Her nocturnal awakenings have resolved with Breztri.Kevin is on Flonase 2 SEN daily. Her post-nasal drainage and congestion have now resolved. Neutrophilia: She will see hematology next month.Data08/12/22IgIgA: 126IgM: 79IgE: 967RQ24: 58AH50: (deferred)Anti-Spn 23: decreased 02/16 = 65% protectiveAnti-Diphtheria: 0.1 (protective)Anti-Tetanus: 1.17 (protective)AEC: 215AANC: 16,641Flow CytometryCD3+: 56% (L), 1612 (wnl)CD3+CD4+: 35%, 5938BU2+CD8+: 26%, 772CD4/CD8 Ratio: 1.33CD16+CD56+: 32% (H), 912 (H)CD19+: 10%, (poor scan quality, best interpretation listed)IgG 995*IgG1 594*IgG2 270*IgG3 74*IgG4 74Environmental Immunocaps: +HDM, cockroach, grass, trees, weeds other than ragweed with total IgE [id number] Phenotype: MMTB Quant Gold: negativeHRCT Chest on 04/30/22*Near complete resolution of previously noted RML consolidatePFT 09/2021 showed FEV1 89% with positive bronchodilator response (360 mL, 15% improvement) recurrent infections Recurrent I nfectionsConjunctivitis: 1/monthOM: 1/monthSinusitis: 1/monthPneumonia: ~3 (see below) + more per patientSSTI: 0Hospitalizations: September 2021 (PNA - 2-3 days admission requiring IV abx), March 2022 (PNA - overnight w/ IV abx)Other Infections: COVID-19 in December 2020; reports influenza yearlyCXR 04/2021 with LLL densityCXR 12/2021 with RML density - CT confirmedCXR 03/2022 w/ RML consolidation - CT confirmedSputum gram stain and fungal stain/cultures from 04/2022 showed normal respiratory obed (no fungus)She is up-to-date on vaccination. She has had COVID-19 vaccination and boosters.Antibiotic courses (per Dr. Reid): Bactrim (October 2021), Levofloxacin (December 2021), Cefdinir x 2 (Feb 2022, Jun 2022), Azitrhomycin (March 2022), Amoxicillin (Apr 2022)She follows with Ruslan Reid MD in Pulmonology.Asthma - ACT: patient has asthma on Symbicort 160/4.5 c g 2 puffs BID and albuterol PRN (used used multiple times per day when sick). They were diagnosed with asthma at age 7 yo. She has been on controller inhalers throughout her life. The patient has never been hospitalized for asthma. Currently, they have exertional limitations 2/2 dyspnea and wheezing. They relay nocturnal awakenings with dyspnea/wheeze nightly. No ED/PCP/UC visits and no oral steroid bursts because of asthma in the last year.RhinitisThe patient has a history of perennial rhinitis with seasonal worsening in spring/summer. The symptoms include posterior rhinorrhea and nasal congestion w/ ocular pruritus and tearing. Currently, the patient is on atrovent 1 SEN QID PRN which does not provide adequate relief.She is on metoprolol.PMH: hypoglycemia, depression, migraine, SLE, ANNABEL, IBS, Calcium deficiencyPSH: section x 2Medication Allergies: Nitrofurantoin - She was treated with this for a UTI. She developed hives and then difficulty breathing. She was treated with IM epi.FHAsthma - brother, sister, pat GM, mat GMRhinitis - dadSLE - pat auntRA - pat auntRecurrent Infections - dad, edwar BAUER [believes grandmother was on ?IVIG)SHTobacco: Former Smoker (1 ppd x ~12 years; quit November 2021)Occupation: Line SupervisorEnvironmental HistoryLives in a house w/ central air/forced heat, w/o evidence of mold/water damageFlooring in Bedroom: carpetPets: dog x 3, cat x 3, fish x 1DataI reviewed outside records available in the EMR10/09/21 (poor scan quality, best interpretation listed)IgG 995*IgG1 594*IgG2 270*IgG3 74*IgG4 74Environmental Immunocaps: +HDM, cockroach, grass, trees, weeds other than ragweed with total IgE [id number] Phenotype: MMTB Quant Gold: negativeHRCT Chest on 04/30/22*Near complete resolution of previously noted RML consolidatePFT 09/2021 showed FEV1 89% with positive bronchodilator response (360 mL, 15% improvement) Functional Status Date Functional Assessmen t No Information Instructions Date Instruction Additional Infor lady - start Flonase 2 sp ray each nostril daily- Please remember to point the nasal spray away from the nasal septum, up and outwards towards the top of the ears on both sides- if nose bleeding occurs, please hold the nasal spray for 2-3 days to allow for healing of the nasal tissue (you may use nasal saline gel or vaseline on a q-tip to help heal the tissue), then restart the nasal spray.- If nose bleeding recurs, please stop the nasal spray and contact our office to set up an appointment for further guidance Related to Other allergic rhinitis - start Breztri 2 pu ffs twice daily- continue albuterol 2 puffs every 4 hours as needed for cough, wheeze, or shortness of breath. Also, take 2 puffs 15-20 minutes prior to exertion Related to Severe persistent asthma Assessments Type Assessment Date No Information Patient Care Teams Name Effective Dates (start - stop) Status Members No Information
--- NOTE | ~2025-05-06 | NM_ITS ---
EXAM/PROCEDURE: NM_HEPATWOEF_NM HISTORY: RUQ pain/ nausea and vomiting GALLSTONES COMPARISON: None available. TECHNIQUE: Hepatobiliary scintigraphy performed. Dose: 4.8 mCi technetium 99m Choletec administered intravenously. FINDINGS: Prompt homogeneous liver uptake is noted at 5 minutes. The gallbladder is not seen to 60 minutes. On 4 hour delayed images, the gallbladder is seen. IMPRESSION: Delayed filling of the gallbladder, however the gallbladder is clearly seen on 4 hour delayed images. No evidence of cystic duct obstruction. Reviewed, dictated and finalized at location A. CREAM MACHINE OPERATOR
--- OUTSIDE RECORDS SUMMARY | 2025-05-06 08:19 | XMS_ITS | Clinical Summary ---
Author Organization [facility] Address [address] [place] [address] Care Team Providers Care Industrial Maintenance Repairer Helper Name Role Phone Mervin Kevin MD Primary Care Provider [phone] Social History Tobacco Use Types Packs/Day Years Used Date Smoking Tobacco: Never Assessed Comments Unknown Sex and Gender Information Value Date Recorded Sex Assigned at Not on file Legal Sex Female 10:18 AM BUILDING OFFICIAL Gender Identity Not on file Sexual Orientation Not on file Last Filed Vital Signs Vital Sign Reading Time Taken Comments Blood Pressure 111/67 07/29/2017 9:58 AM BUILDING OFFICIAL Pulse 72 07/29/2017 9:58 AM BUILDING OFFICIAL Temperature - - Respiratory Rate - - Oxygen Saturation - - Inhaled Oxygen Concentration - - Weight 68 kg (150 lb) 07/29/2017 9:58 AM BUILDING OFFICIAL Height 170.2 cm (5' 7) 07/29/2017 9:58 AM BUILDING OFFICIAL Body Mass Index 23.49 07/29/2017 9:58 AM BUILDING OFFICIAL Plan of Treatment Health Maintenance Due Date [...] patient's age to complete this topic Insurance [address] [id number] Care Teams Industrial Maintenance Repairer Helper Relationship Specialty Start Date End Date Mervin Kevin MD [facility] [address] [address] PCP - General FAMILY PRACTICE 06/30/17
--- OUTSIDE RECORDS SUMMARY | 2025-05-06 08:19 | XMS_ITS ---
Author Organization [facility] Address [address] [place] [address] Phone Care Team Providers Care Technical Producer Name Role Phone Mervin Kevin MD Primary Care Provider [phone] Mirtha Chronic Condition Monitoring Status:Enrolled (Active) Start date:01/15/2025 Enrollment date:01/15/2025 Related social drivers of health:Social Connections, Alcohol Use, Tobacco Use, Financial Resource Strain, Stress, Physical Activity,Food Insecurity, Transportation Needs, Housing Stability, Utilities Related service episodes:[facility] Service Episode (Closed) Continued Care and Services Coordination
--- OUTSIDE RECORDS SUMMARY | 2025-05-06 08:19 | XMS_ITS | Clinical Summary ---
Author Organization [facility] Address [address] [place] [address] Care Team Providers Care Provider Network Mgr Name Role Phone Mervin Kevin MD Primary Care Provider [phone] Source Comments [facility],non-owned Affiliates and Associated Physician Practices is amultiple site organization consisting of ambulatory clinics and hospital sitesin [place], [place], [place] and [place]. This disclosure is being madepursuant to the Care Everywhere program and may not contain all information available regarding this patient. Last updated 18.[facility] Allergies Active Allergy Reactions Criticality Noted Date [...] fluticasone propionate (Flonase) 50 MCG/ACT nasal spray [place] 2 (two) sprays into the nose once daily Active Accu-Chek Guide test strip 2 times daily 5 Active HYDROcodone-ac etaminophen (Colbert) 5-325 MG tablet Take 1 (one) tablet [...] vitamin D, ergocalciferol , (Drisdol) 1.25 MG (91844 UT) capsule TAKE 1 CAPSULE BY MOUTH [...] anatomic survey 03/06/2018 Overview (04/03/2018): 03/06/2018 Danna Sanchez was screened for depression using the Purdys Depression Scale (EPDS) at her [facility] initial evaluation on 03/06/2018. Her initial [...] from the original note were not included. [facility] PATIENT--PLEASE CALL [phone] (ex 2) IF TRIAGED OR ADMITTED Care Provider: Dr. Erasmo Wood [facility]ola consultants involved: RN-Rosana/Jayce; MFM-Vitor; Cleft Team-Kamila Mojica; Cardiology-Vitor Diagnosis: Cleft Lip & Palate follow up: per Cleft Team consult 9.10: Family will call to schedule a visit with the cleft palate team after the baby is born. Straight Pin Making Machine Operator: undecided as of 04.03 Planned surveillance: Repeat ultrasound at [facility] at 32w & 36w; released from [facility] on 04.03.2018 Delivery location, mode, and GA: [facility], desires vaginal delivery Genetics note: genetic [...] laboratory and call the genetic counselors at [phone] or [phone] to notify that specimen is ready for sendout. Order can be placed by genetic counselor in baby's chart at that time. Please request Genetics consult postnatally if clinically indicated by calling the Genetics office at [phone] prior to ordering genetic studies. Riveting Machine Operator Automatic Concerns: 03/06/18- Patient with history of bipolar [...] Telephone [facility] - [facility] Surgery [address] [place] [address], [place] [phone] Alexa Landers MD Medication Issue 04/17/2025 9:45 AM CDT Office Visit [facility] [address] [place] [address], [place] [phone] Alexa Landers MD Right upper quadrant pain (Primary Dx) 04/17/2025 7:40 AM CDT - 04/17/2025 11:59 PM CDT Hospital Encounter [facility] [address] [place] [address] Alexa Landers MD Discharge Disposition: Home or Self Care 04/17/2025 Travel 04/01/2025 Travel 03/28/2025 Telephone [facility] [address], [place] [address] Alexa Landers MD Follow-up 03/28/2025 Travel from [...] PM CDT Legal Sex Female 3:34 PM QUALITY CONTROL CLERK Gender Identity Female 02/21/2024 3:10 PM CDT [...] Oxygen Concentration 21% 06/30/2018 8 :39 AM QUALITY CONTROL CLERK Weight 75.3 kg (166 lb) 04/17/2025 9:51 AM CDT Height 170.2 cm (5' 7) 04/17/2025 9:51 AM CDT Body Mass Index 26 04/17/2025 9:51 AM CDT Plan of Treatment Upcoming Encounters Date Type Department Care Team (Late st Contact Info) Description 05/29/2025 8:30 AM QUALITY CONTROL CLERK Office Visit [facility] - Rheumatology [address] [facility], [facility] [place] [address] Donny Rodas MD [address] [place] [address] Health Maintenance Due Date Last [...] by Bennie Gonzalez MD > Dictated by Jigsawyer IAnkur MD have personally reviewed and interpreted this examination/study. 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 > Interpreting Provider: Ankur Castro MD on 04/17/2025 3:38 [address] ORDERABLES Final Resul t * ISTAT CREATININE (04/17/2025 8:06 AM CDT) Creatinine POCT 0.80 0.60 - 1.30 mg/dL 04/17/2025 8:07 AM T [facility] eGFR by CKD-EPI >90 >90 mL/min/1.7 3 m2 04/17/2025 8:07 AM T [facility] Sample iSTAT QUITA 04/17/2025 8:07 AM T [facility] Blood BLOOD SPECIMEN / Unknown 04/17/2025 8:06 AM CDT 04/17/2025 8:07 AM CDT us Alexa Landers MD LAB - POINT OF CARE ORDERAB LES Final Result [facility] [address] [place] [phone], [facility] [phone] * HIV-1 HIV-2 ANTIBODY + HIV P24 AG PANEL (11/24/2018 2:32 PM CDT) HIV1/2 Ab + P24 Ag Non Reactive Non Reactive 11/24/2018 3:32 PM CDT [facility] Blood BLOOD SPECIMEN / Unknown Venipuncture / Unknown 11/24/2018 2:32 PM CDT 11/24/2018 2:35 PM CDT Narrative [facility] - 11/24/2018 3:32 PM CDT No Laboratory evidence of HIV infection. us Alondra Saxena DO LAB - CHEMISTRY ORDERAB LES Final Result [facility] [address] [place] [address] * PAP LB RFLX HPV ASCU (11/24/2018 2:32 PM CDT) Diagnosis Comment 11/29/2018 11:13 AM CDT [facility] ([facility]) Comment:NEGATIVE FOR INTRAEP ITHELIAL LESION OR MALIGNANCY. Specimen Adequacy Comment 019 11:13 AM CDT [facility] ([facility]) Comment: Satisfactory for evaluation. Endocervical and/or squamous metaplastic cells (endocervical component) are present. Performed by Comment 11/29/2018 11:13 AM CDT [facility] ([facility] Comment:Martha Napier Cytokaley chnologist (ASCP) Comment . 11/29/2018 11:13 AM CDT [facility] ([facility]) Note Comment 11/29/2018 11:13 AM CDT [facility] ([facility]) Comment: The Pap smear is a screening test designed to aid in the detection of premalignant and malignant conditions of the uterine cervix. It is not a diagnostic procedure and should not be used as the sole means of detecting cervical cancer. Both false-positive and false-negative reports do occur. Note Comment 11/29/2018 11:13 AM CDT [facility] ([facility] Comment: The HPV DNA reflex criteria were not met with this specimen result therefore, no HPV testing was performed. Pathology/Cytolo gy ENTIRE ENDOCERVIX / Unknown Collection / Unknown 11/24/2018 2:32 PM CDT 11/25/2018 7:38 AM CDT Narrative [facility] ([facility] - 11/29/2018 11:13 AM CDT Performed at: [address] [place] [id number] Campus Interviews Intern: Fe Cruz MD, Phone: [phone] Specimen Comment: Source.............Cervix;Endocervix Specimen Comment: No. of containers..01 ThinPrep Vial Alondra Saxena DO LAB - PATHOLOGY/CYTOLOG Y ORDERABLES Final Result Performing Organization Address City/[facility] Co de Phone Number [facility] [address] [place] [address] * HEPATITIS C ANTIBODY (11/24/2018 2:32 PM CDT) HCV Antibody Screen Non Reactive Non Reactive 11/24/2018 4:08 PM CDT [facility] HCV S/C Ratio 0.13 0.00 - 0.79 11/24/2018 4:08 PM CDT [facility] Comment: Amwurx-yo-wcehqm ratio (S/CO) <0.80: Non Reactive Blood BLOOD SPECIMEN / Unknown Venipuncture / Unknown 11/24/2018 2:32 PM CDT 11/24/2018 2:36 PM CDT Narrative [facility] - 11/24/2018 4:08 PM CDT Non Reactive - Antibodies to Hepatitis C virus (HCV) were not detected, result does not exclude early acute HCV infection. Alondra Saxena DO LAB - CHEMISTRY ORDERAB LES Final Result Performing Organization Address City/[facility]/ZIP Co de Phone Number [facility] [address] [place] [address] from Last 3 Months or Most Recently Relevant to Health Maintenance Insurance [place] [facility] [place] [facility] SELF PAY NO INSURANCE Member Subscriber Plan / Payer (Ef fective for All Dates) Name:Danna Sanchez Member ID:Not on file Relation to Subscriber:Not on file Name:DANNA SANCHEZ Subscriber ID:Not on file (Home) Address: [address] [place] [id number] Payer ID:Not on file Group ID:Not on file Type:Self Pay Address: [place], [place] [employer] [place] Advance Directives * Full Code (Latest Code Status on File) Date Activated Date Inactivated Comments 06/28/2018 1:00 PM 06/30/2018 1:33 PM Care Teams Provider Network Mgr Relationship Specialty Start Date End Date Mervin Kevin MD [address] [place] [address] PCP - General Family Medicine 12/29/17
--- OUTSIDE RECORDS SUMMARY | 2025-05-06 08:19 | XMS_ITS | Clinical Summary ---
Author Organization [facility] Address [address] [place] [address] [place] [address] Care Team Providers Care Horse Breeder Name Role Phone Unavailable Primary Care Provider [...] ipratropium bromide (ATROVENT) 42 mcg (0.06 %) [place], Non-Aerosol INSTILL 1 SPRAY INTO THE NOSTRILS [...] on file Legal Sex Female 10:24 AM PRECINCT POLICE CAPTAIN Gender Identity Not on file Sexual Orientation [...]
--- OUTSIDE RECORDS SUMMARY | 2025-05-06 08:19 | XMS_ITS | Clinical Summary ---
Author Organization [facility] Address [address] [place] [address] Phone Care Team Providers Care Photo Stylist Name Role Phone Mervin Kevin MD Primary Care Provider [phone] Allergies Active Allergy Reactions Criticality Noted Date Comments Nitrofurantoin Other (see Comments),Anaphylax is,Shortness of Breath,Hives,Rash High 12/29/2017 Other-Environmental Allergen (Not Found In Search) Other (see Comments) 01/16/2025 Grass, cottonwood Medications fluticasone (FLONASE) 50 MCG/ACT Suspension 2 Sprays by Nasal route daily. Active ergocalcifero l (VITAMIN D) 81828 UNIT Capsule Take 1.25 mg by mouth [...] Active ipratropium (ATROVENT) 0.06 % Solution 1 [place] by Nasal route daily. 07/15/19 23 Active [...] Department Care Team Description 04/22/2025 [facility]phone [facility] [address] [place] [address] Danna Cueva Patient Outreach 04/22/2025 [facility] [address] [place] [address] Danna Cueva Patient Outreach 04/19/2025 12:31 PM CDT - 04/19/2025 4:24 PM CDT Emergency [facility] [address] [place] [address] Anirudh Denny, PAC Diarrhea Discharge Disposition: Discharged to home or Selfcare 04/19/2025 Travel 04/15/2025 Refill [facility] [address] [place] [address] Wili Solomon MD Medication Refill 03/19/2025 9:47 AM CDT - 03/19/2025 11:59 PM CDT [facility] [address] [place] [address] Cinthia Noriega APRN, BANKRUPTCY ASSISTANT Discharge Disposition: Discharged to home or Selfcare 03/17/2025 Travel 03/14/20[facility] [address] [place] [address] Wili Solomon MD Medication Refill 02/[facility] [address] [place] [phone] Wili Solomon MD 02/04/2025 2:40 PM CDT Office Visit [facility] [address] [place] [address] Wili Solomon MD History of systemic lupus erythematosus (SLE) (HCC) (Primary Dx); Splenic vein thrombosis; Chronic bronchitis, unspecified chronic bronchitis type (HCC); Nodule of right lung; History of iron deficiency; H. pylori infection; Gastroesophageal reflux disease, unspecified whether esophagitis present Discharge Disposition: Discharged to home or Selfcare 02/04/2025 Travel from Last 3 Months Immunizations Immunization [...] How often do you attend chur or pentecostal services? More than 4 times per year 01/15/2025 Do you belong to any clubs o r organizations such as shinto groups, unions, fraternal or athletic groups, or [...] care, and heating? Very hard 01/15/2025 [facility] of Occupat ional Health - Occupational Stress [...] any time in the past 12 m [facility], were you homeless or living in a fci (including now)? No 01/15/2025 [facility] Utilities Answer Date Recorded In the [...] st Contact Info) Description 05/20/2025 10:00 AM RESIDENTIAL CAREGIVER Appointment [facility] [address] [place] [address] Wili Solomon MD [address] [place] [address] Discharge Disposition: Discharged to home or Selfcare 06/10/2025 1:40 PM RESIDENTIAL CAREGIVER Office Visit [facility] [address] [place] [address] Wili Solomon MD [address] [place] [address] Discharge Disposition: Discharged to home or Selfcare [...] 12:07 PM CDT [facility] [place] - Crisis Services Mental Health Services Stress Recommended 01/15/2025 12:04 PM CDT [employer] - Foreclosure Prevention Program Help Hotlines Stress Recommended 01/15/2025 12:04 PM CDT [place] [facility] Housing Insecurity Needs Utilities Recommended 01/15/2025 12:01 PM CDT [facility] Urban Programs ([facility]) - The HUB (Housing, Utilities, Basic Needs) Help Find Housing Housing Stability Recommended 01/15/2025 12:01 PM CDT [facility] Help Find Housing, Shampoo Assistant Housing, Residential Housing Housing Stability Recommended 01/15/2025 12:01 PM CDT [facility] Emergency Food Food Insecurity Recommended 01/15/2025 11:59 AM CDT [facility] Food Pantry Food Insecurity Recommended 01/15/2025 11:59 AM CDT [facility] [place] Food Pantry Food Insecurity Recommended 01/15/2025 11:59 AM CDT [facility] - Food Pantry Food Pantry Food [...] 2:52 PM DICTATING PHYSICIAN: Renzo Soares MD, [facility]. HISTORY: As below. ADDITIONAL TECHNOLOGIST [...] 2:52 PM DICTATING PHYSICIAN: Renzo Soares [facility], [facility] HISTORY: As below. ADDITIONAL TECHNOLOGIST HISTORY: [...] 1.003 - 1.030 04/19/2025 2:41 PM CDT [facility] URINE PH 7.0 5.0 - 9.0 04/19/2025 2:41 PM CDT [facility] WBC ESTERASE Negative Negative 04/19/2025 2:41 PM CDT [facility] NITRITE Negative Negative 04/19/2025 2:41 PM CDT [facility] PROTEIN, RANDOM URINE Negative Negative 04/19/2025 2:41 PM CDT [facility] URINE GLUCOSE, QUAL Negative Negative 04/19/2025 2:41 PM CDT [facility] URINE KETONES Negative Negative 04/19/2025 2:41 PM CDT [facility] UROBILINOGEN Normal Normal mg/dL 04/19/2025 2:41 PM CDT [facility] URINE BLOOD Negative Negative kendal/ul 04/19/2025 2:41 PM CDT [facility] URINALYSIS COLOR Yellow 04/19/20 2:41 PM CDT [facility] URINALYSIS CLARITY Clear 04/19/2025 2:41 PM CDT [facility] Urine URINE SPECIMEN OBTAINED BY CLEAN CATCH PROCEDURE / Unknown Non-Phlebotomy Collection / Unknown 04/19/2025 2:05 PM CDT 04/19/2025 2:14 PM CDT Aubrey Steven MD URINE ORDERABLES Final R esult [facility] [address] [place] [address] * Gold Top Tube (04/19/2025 12:55 PM CDT) Blood No Phlebotomy Charged / Unknown 04/19/2025 12:55 PM CDT 04/19/2025 1:53 PM CDT Aubrey Steven MD CHEMISTRY ORDERABLES Fin al Result Performing Organization Address City/[facility]/ZIP Co de Phone Number [facility] [address] [place] [address] * Blue Top Tube (04/19/2025 12:55 PM CDT) Blood No Phlebotomy Charged / Unknown 04/19/2025 12:55 PM CDT 04/19/2025 1:53 PM CDT Aubrey Steven MD HEMATOLOGY ORDERABLES Fi nal Result Performing Organization Address [facility] Co de Phone Number [facility] [address] [place] [address] * (ABNORMAL) CBC with Auto Differential (04/19/2025 12:55 PM CDT) WBC 8.22 4.00 - 12.00 10(3)/mcL 04/19/2025 1:56 PM CDT [facility] RBC 4.56 3.80 - 5.30 10(6)/mcL 04/19/2025 1:56 PM CDT [facility] HEMOGLOBIN (HGB) 13.5 12.0 - 15.8 g/dL 04/19/2025 1:56 PM CDT [facility] HEMATOCRIT (HCT) 39.4 36.0 - 47.0 % 04/19/2025 1:56 PM CDT [facility] MCV 86.4 82.0 - 96.0 fL 04/19/2025 1:56 PM CDT [facility] MCH 29.6 26.0 - 34.0 pg 04/19/2025 1:56 PM CDT [facility] MCHC 34.3 31.0 - 36.0 g/dL 04/19/2025 1:56 PM CDT [facility] PLATELET COUNT 277 140 - 440 10(3)/mcL 04/19/2025 1:56 PM CDT [facility] RDW 12.5 11.8 - 15.5 % 04/19/2025 1:56 PM CDT [facility] MPV 11.0 9.7 - 12.4 fL 04/19/2025 1:56 PM CDT [facility] NEUTROPHILS 63.5 47.0 - 73.0 % 04/19/2025 1:56 PM CDT [facility] LYMPHOCYTES 27.1 18.0 - 42.0 % 04/19/2025 1:56 PM CDT [facility] MONOCYTES 7.3 4.0 - 12.0 % 04/19/2025 1:56 PM CDT [facility] EOSINOPHILS 1.0 0.0 - 5.0 % 04/19/2025 1:56 PM CDT [facility] BASOPHILS 0.6 0.0 - 1.0 % 04/19/2025 1:56 PM CDT [facility] IMMATURE GRANULOCYTE 0.5(H) 0.0 - 0.4 % 04/19/2025 1:56 PM CDT [facility] Comment:Immature Granulocyte s includes Metamyelocytes, Myelocytes, and Promyelocytes. ABSOLUTE NEUTROPHILS 5.22 1.60 - 7.70 10(3)/mcL 04/19/2025 1:56 PM CDT [facility] ABSOLUTE LYMPHOCYTES 2.23 1.30 - 3.20 10(3)/mcL 04/19/2025 1:56 PM CDT [facility] ABSOLUTE MONOCYTES 0.60 0.20 - 1.00 10(3)/mcL 04/19/2025 1:56 PM CDT [facility] ABSOLUTE EOSINOPHIL 0.08 0.00 - 0.40 10(3)/mcL 04/19/2025 1:56 PM CDT [facility] ABSOLUTE BASOPHILS 0.05 0.00 - 0.10 10(3)/mcL 04/19/2025 1:56 PM CDT [facility] ABSOLUTE IMMATURE GRANULOCYTE 0.04(H) 0.00 - 0.03 10 (3) mcL. 04/19/2025 1:56 PM CDT [facility] NRBC PER 100 WBC 0 04/19/20 1:56 PM CDT [facility] Blood Venipuncture / Unknown 04/19/2025 12:55 PM CDT 04/19/2025 1:52 PM CDT us Aubrey Steven MD HEMATOLOGY ORDERABLES Fi nal Result [facility] [address] [place] [address] * (ABNORMAL) Comprehensive Metabolic Panel (Cmp) [id number] (04/19/2025 12:55 PM CDT) SODIUM 140 136 - 145 mmol/L 04/19/2025 2:12 PM CDT [facility] POTASSIUM 3.6 3.5 - 5.1 mmol/L 04/19/2025 2:12 PM CDT [facility] CHLORIDE 110(H) 98 - 107 mmol/L 04/19/2025 2:12 PM CDT [facility] CO2, VENOUS 21(L) 22 - 30 mmol/L 04/19/2025 2:12 PM CDT [facility] ANION GAP 12.6 <18.0 mmol/L 04/19/2025 2:12 PM CDT [facility] GLUCOSE 85 70 - 99 mg/dL 04/19/2025 2:12 PM CDT [facility] BUN 12 5 - 18 mg/dL 04/19/2025 2:12 PM CDT [facility] CREATININE, BLOOD 0.67 0.60 - 1.00 mg/dL 04/19/2025 2:12 PM CDT [facility] BUN/CREATININE RATIO 18 12 - 20 ratio 04/19/2025 2:12 PM CDT [facility] TOTAL PROTEIN 6.7 6.0 - 8.0 g/dL 04/19/2025 2:12 PM CDT [facility] ALBUMIN 4.4 3.5 - 5.0 g/dL 04/19/2025 2:12 PM CDT [facility] A/G RATIO 1.9 1.0 - 2.2 04/19/2025 2:12 PM CDT [facility] CALCIUM 9.1 8.7 - 10.5 mg/dL 04/19/2025 2:12 PM CDT [facility] T BILI 0.3 0.2 - 1.2 mg/dL 04/19/2025 2:12 PM CDT [facility] SGOT (AST) 10 <43 U/L 04/19/2025 2:12 PM T [facility] SGPT (ALT) 12 <56 U/L 04/19/2025 2:12 PM T [facility] ALKALINE PHOSPHATASE 46 40 - 150 U/L 04/19/2025 2:12 PM T [facility] GFR, ESTIMATED >60 >=60 04/19/2025 2:12 PM T [facility] Comment: Creatinine Clearance is the preferred criteria for selecting drug dose adjustments in renally impaired patients. The GFR is provided as additional pertinent clinical information. GFR is reported in mL/min/1.73 sq m. Calculation based on the 2020 Chronic Kidney Disease Epidemiology Collaboration (CKD-EPI) equation refit without adjustment for race. GFR, EST. >60 >=60 2:12 PM CDT [facility] Comment: Creatinine Clearance is the preferred criteria for selecting drug dose adjustments in renally impaired patients. The GFR is provided as additional pertinent clinical information. GFR is reported in mL/min/1.73 sq m. Calculation based on the 2009 Chronic Kidney Disease Epidemiology Collaboration (CKD-EPI). GFR, EST. NONAFRICAN >60 >=60 04/19/2025 2:12 PM CDT [facility] Comment: Creatinine Clearance is [...] MD CHEMISTRY ORDERABLES Fin al Result [facility] [address] [place] [address] * CT CHEST W CONTRAST (03/19/2025 10:38 AM CDT) Anatomical Region Laterality Modality Chest N/A Computed Tomogra phy 03/19/2025 10:3 8 AM CDT Impressions 03/19/2025 11:43 AM CDT IMPRESSION: Resolution of right middle lobe infiltrates. No new suspicious lung nodules. Narrative 03/19/2025 11:[address] CHEST W CONTRAST : 03/19/2025 10:38 AM DICTATING PHYSICIAN: EMELY CABALLERO, [facility]. HISTORY: As below. ADDITIONAL TECHNOLOGIST [...] 03/19/2025 10:38 AM DICTATING PHYSICIAN: EMELY CABALLERO [facility]. HISTORY: As below. ADDITIONAL TECHNOLOGIST HISTORY: [...] Insurance MEDICAID [employer] Care Teams Photo Stylist Relationship Specialty Start Date End Date Mervin Kevin MD [address] [place] [id number] PCP - General Family Medicine 11/21/24
--- OUTSIDE RECORDS SUMMARY | 2025-05-06 08:19 | XMS_ITS | Clinical Summary ---
Author Organization [facility] Address [address] [place] [address] Care Team Providers Care Chopper Gun Operator Name Role Phone Mervin Kevin MD Primary Care Provider [phone] Allergies Active Allergy Reactions Criticality Noted Date [...] Encounters Date Type Department Care Team Description 04/24/2025 8:48 AM CDT - 04/24/2025 11:59 PM CDT Hospital Encounter [facility] Di[facility] Imaging [address] [place] [phone] Acute foot pain, left Discharge Disposition: Discharge to home or self care 02/20/2025 11:59 AM CDT - 02/20/2025 2:21 PM CDT Emergency [address] [address] Left foot pain (Primary Dx) Discharge Disposition: Discharge to home or self care 02/20/2025 8:00 AM CDT - 02/20/2025 11:59 PM CDT Hospital Encounter [facility] Cardiac Testing [address] [place] [phone] Palpitations Discharge Disposition: Discharge to home or self care 02/07/2025 Telephone [facility] Medical [facility] Cardiology [address] [place] [phone] Pepper Pimentel MD holter 02/05/2025 1:45 PM CDT Ancillary Procedure [facility] Cardiology [address] [place] [phone] Palpitations 02/05/2025 12:30 PM CDT Office Visit [facility] Cardiology [address] [place] [phone] Pepper Pimentel MD Palpitations (Primary Dx) from Last 3 Months Surgical History Surgery Date Site/Laterality Comments TUBAL LIGATION 2022 SECTION 2015 and 2019 Medical History Medical History Date Comments Asthma Migraines 2007 GERD (gastroesophageal reflux disease) 2008 Autoimmune disease [...] on file 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 Gender Identity Not on file Sexual Orientation [...] PCV) 09/02/2023 09/01/2022 Covid-19 Vaccine ( - season) 2025 10/09/2021, 04/20/2021, 03/30/2021 Influenza Vaccine (#1) 2025 04/11/2019, 2017 DTaP/Tdap/Td Vaccine (3 - Td or Tdap) 09/05/202905/2020, 04/06/2018 Procedures Procedure Name Priority Date/Time Associated Diagnosis Comments XR FOOT LEFT 3 OR MORE VIEWS Schedule Routine, Read Routine (OP Routine) 04/24/2025 8:53 AM CDT Acute foot pain, left XR SACRUM COCCYX 2 OR MORE VIEWS ED 02/20/2025 10:28 AM CDT XR FOOT LEFT 3 OR MORE VIEWS ED 02/20/2025 10:28 AM CDT XR ANKLE LEFT 3 OR MORE VIEWS ED 02/20/2025 10:28 AM CDT TRANSTHORACIC ECHO (TTE) COMPLETE W DOPPLER/CF WO CONTRAST Routine 02/20/2025 8:51 AM CDT Palpitations EXTENDED/GROUP HOME HOLTER PATCH (8 DAYS UP TO 15 DAYS) Routine 02/05/2025 1:27 PM CDT Palpitations ECG 12-LEAD Routine 02/05/2025 12:41 PM CDT Palpitations from Last 3 Months Results * XR Foot Left 3 or More Views (04/24/2025 8:53 AM CDT) Anatomical Region Laterality Modality Lower Extremities, Foot Left Computed Radiography 04/24/2025 9:33 AM CDT Impressions 04/24/2025 9:33 AM CDT 1. No acute fracture identified. 2. 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 Electronically signed by: Charles Lopez M.D. Narrative 04/24/2025 9:33 AM CDT EXAMINATION: XR FOOT LEFT 3 OR MORE VIEWS HISTORY: pain. Left foot osteoarthritis. FINDINGS: 3 views submitted with comparison 02/20/2025. No acute fracture. Suggestion of mild hindfoot valgus. The midfoot joint spaces are normal. Suggestion of hallux valgus with minimal 1st metatarsophalangeal joint osteoarthritis. Procedure Note Charles Lopez MD - 04/24/2025 EXAMINATION: XR FOOT LEFT 3 OR MORE VIEWS HISTORY: pain. Left foot osteoarthritis. FINDINGS: 3 views submitted with comparison 02/20/2025. No acute fracture. Suggestion of mild hindfoot valgus. The midfoot joint spaces are normal. Suggestion of hallux valgus with minimal 1st metatarsophalangeal joint osteoarthritis. IMPRESSION: 1. No acute fracture identified. 2. 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 Electronically signed by: Charles Lopez M.D. Pako Bañuelos DO IMG XR PROCEDURES Final Result * XR Foot Left 3 or More [...] - Electronically signed by Papo Zheng M.D. T: Report ID: [id number] Reading Location: [id number] Procedure Note Papo Zheng MD - 02/20/2025 [...] signed by Papo HADDAD T: Report ID: [id number] Reading Location: [id number] Johann Fox DO IMG XR PROCEDURES Final [...] Papo Zheng M.D. LB T: Report ID: [id number] Reading Location: [id number] Procedure Note Papo Zheng MD - 02/20/2025 [...] Papo Zheng M.D. LB T: Report ID: [id number] Reading Location: [id number] us Johann Fox DO IMG XR PROCEDURES [...] Papo Zheng M.D. LB T: Report ID: [id number] Reading Location: [id number] Procedure Note Papo Zheng MD - 02/20/2025 [...] Papo Zheng M.D. LB T: Report ID: [id number] Reading Location: [id number] us Johann Fox DO IMG XR PROCEDURES [...] AM Ht(Inch): 67 Wt(Lb): 159 BSA: 1.85 Able Bodied Watchman: Jo Gamble RDCS Order Provider: EPPPER PIMENTEL Heart Rate: 58 BMI: 24.9 BP: 98 / 54 Ref Provider: PEPPER PIMENTEL PROCEDURES: Echocardiographic Report: ([id number]) Transthoracic complete echo, 2D, spectral and tissue [...] AM Ht(Inch): 67 Wt(Lb): 159 BSA: 1.85 Able Bodied Watchman: Jo Gamble RDCS Order Provider: PEPPER PIMENTEL Heart Rate: 58 BMI: 24.9 BP: 98 / 54 Ref Provider: PEPPER PIMENTEL PROCEDURES: Echocardiographic Report: ([id number]) Transthoracic complete echo, 2D,spectral and tissue Doppler, [...] MD CV ECHO PROCEDURES Final Result * Extended/Care Home Holter Patch (8 days up to 15 [...] nal Result from Last 3 Months Insurance [facility] OTHER Address: ATTN: CLAIMS DEPT [address] [place] [address] [facility] Care Teams Chopper Gun Operator Relationship Specialty Start Date End Date Mervin Kevin MD PCP - General Emergency Medicine 02/22/22
== END 2025-05-06 08:15 | disposition home or self-care (01) ==
PROVIDERS: PCP Emergency Medicine; Visit Provider Nurse Practitioner Family
DX: K82.8 Other specified diseases of gallbladder (principal)
CPT/HCPCS: 78226; A9537

== ENCOUNTER 2025-06-12 15:39 | Outpatient (CLI) | payer OTHER, SELFPAY ==
--- OUTSIDE RECORDS SUMMARY | 2025-06-12 18:03 | XMS_ITS | Clinical Summary ---
Author Organization [facility] Address [address] [place] [address] Phone Care Team Providers Care Dean [employer] Name Role Phone Mervin Kevin MD Primary Care Provider [phone] Allergies Active Allergy Reactions Criticality Noted Date Comments Nitrofurantoin Other (see Comments),Anaphylax is,Shortness of Breath,Hives,Rash High 12/29/2017 Other-Environmental Allergen (Not Found In Search) Other (see Comments) 01/16/2025 Grass, cottonwood Pramipexole Hives,Itching 05/22/2025 Medications fluticasone (FLONASE) 50 MCG/ACT Suspension 2 Sprays by Nasal route daily. Active ergocalciferol (VITAMIN D) 59025 UNIT Capsule Take 1.25 mg by mouth [...] Take 10 mg by mouth daily. Active diphenhydrAMINE (BENADRYL) [...] Active ipratropium (ATROVENT) 0.06 % Solution 1 [place] by Nasal route daily. 07/15/19 23 Active [...] mouth daily. Take after a meal. Active apixaban (Eliquis) 5 MG Tablet TAKE 1 TABLET BY MOUTH TWICE A DAY FOR ATRIAL FIBRILLATION 60 Tablet 2 04/15/20 25 Active ondansetron (ZOFRAN) 4 MG Tablet Take 1 Tablet by mouth every 8 hours as needed for Nausea - 1st line. 10 Tablet 04/19/20 25 Active linaCLOtide (Linzess) 72 MCG Capsule Take 72 mcg by mouth every morning (before breakfast). Active Calcium Carb-Cholecalci ferol (OYSCO 500 + D) 500-5 MG-MCG Tablet Take 1 Tablet by mouth daily. Active fluconazole (DIFLUCAN) 150 MG Tablet Take 150 mg by mouth as needed. 11/01/19 Active ferrous sulfate 325 (65 Fe) MG Tablet Take 1 Tablet by mouth 2 times daily. Twice a day 05/22/20 Active famotidine (PEPCID) 20 MG Tablet Take 1 Tablet by mouth 2 times daily. 05/22/20 Active metoprolol Succinate (TOPROL-XL) 50 MG TABLET SR 24 HR Take 1 Tablet by mouth 2 times daily. 05/22/20 Active Multiple Vitamin (MULTIVITAMIN PO) Take 2 Tablets by mouth daily. MV with proboitics Active guaiFENesin (Mucinex) 600 MG TABLET SR 12 HRIndications:C hronic bronchitis, unspecified chronic bronchitis type Take 1 Tablet by mouth 2 times daily as needed for Congestion or Cough. 90 Tablet 05/22/20 Active ferrous sulfate 325 (65 Fe) MG Tablet Take 325 mg by mouth daily. Discontin ued(Dose adjustmen t) famotidine (PEPCID) 20 MG Tablet Take 20 mg by mouth daily. 09/18/19 Discontin ued(Dose adjustmen t) metoprolol Succinate (TOPROL-XL) 50 MG TABLET SR 24 HR Take 50 mg by mouth daily. 01/09/20 025 Discontin ued(Dose adjustmen t) metroNIDAZOLE (FLAGYL) 500 MG Tablet TAKE 1 TABLET BY MOUTH EVERY 8 HOURS FOR 2 WEEKS 01/24/20 025 Discontin ued(Med List Clean Up) tetracycline (ACHROMYCIN, SUMYCIN) 500 MG Capsule TAKE 1 TABLET BY MOUTH 4 TIMES DAILY FOR 2 WEEKS 01/26/20 025 Discontin ued(Med List Clean Up) traMADol (ULTRAM) 50 MG TabletIndicatio ns:Acute Pain Take 1-2 Tablets by mouth every 6 hours as needed for Moderate or more severe pain. Indications: Acute Pain 12 Tablet 04/19/20 025 Discontin ued(Med List Clean Up) Active Problems Problem Noted Date Diagnosed Date H. pylori infection 02/04/2025 Gastroesophageal reflux disease 02/04/2025 Splenic vein thrombosis 01/02/2025 Nodule of right lung 11/21/2024 History of iron deficiency 11/21/2024 Persistent atrial fibrillation 11/21/2024 Chronic bronchitis 11/21/2024 Resolved Problems Problem Noted Date Diagnosed Date Resolved Date History of systemic lupus erythematosus (SLE) 11/22/19 25 06/10/2025 Encounters Date Type Department Care Team Description 06/10/2025 1:40 PM MACHINIST JOB SETTER [facility] [address] [place] [phone] Wili Solomon MD Splenic vein thrombosis (Primary Dx); History of iron deficiency; Persistent atrial fibrillation Discharge Disposition: Discharged to home or Selfcare 06/10/2025 Travel 05/22/2025 3:30 PM MACHINIST JOB SETTER Telemedicine [facility] [address] [place] [phone] Devorah Li APRN, [place] Chronic bronchitis, unspecified chronic bronchitis type (Primary Dx) 05/22/2025 Travel 05/22/2025 Nurse Triage [facility] [address] [place] [phone] Trena Nicole, RN COPD 04/22/2025 Telephone [facility] [address] [place] [phone] Danna Cueva Patient Outreach 04/22/2025 Telephone [facility] [address] [place] [phone] Danna Cueva Patient Outreach 04/19/2025 12:31 PM CDT - 04/19/2025 4:24 PM CDT [facility] [address] [place] [phone] Anirudh Denny, [place]IL[place] Diarrhea Discharge Disposition: Discharged to home or Selfcare 04/19/2025 Travel 04/15/2025 [facility] [address] [place] [phone] Wili Solomon MD Medication Refill 03/19/2025 9:47 AM CDT - 03/19/2025 11:59 PM CDT Hospital Encounter [facility] [address] [place] [phone] Cinthia Noriega, [place], [place] Discharge Disposition: Discharged to home or Selfcare 03/17/2025 Travel 03/14/2025 Refill [facility] [address] [place] [phone] Wili Solomon MD Medication Refill from Last 3 Months Immunizations Immunization Administration [...] Smoking Tobacco: Former Cigarettes 0 Q uit: 2011 Smokeless Tobacco: Never Tobacco Cessation:Counseling Given: Not Answered Comments:3 years ago quit smoking Alcohol Use Standard Drinks/Week Comments Yes 0 [...] How often do you attend chur or gnosticist services? More than 4 times per year 01/15/2025 Do you belong to any clubs o r organizations such as lutheran groups, unions, fraternal or athletic groups, or [...] medical care, and heating? Very hard 01/15/2025 [facility] - Occupational Stress Questionnaire Answer Date [...] any time in the past 12 m [facility], were you homeless or living in a correction (including now)? No 01/15/2025 [facility] Utilities Answer Date Recorded In the past 12 months has th e [employer], gas, oil, or water [employer] threatened to shut off services in your home? Already shut off 01/15/2025 Comments No Sex and Gender Information Value Date Recorded Sex Assigned at Not on file Legal Sex Female 1:23 PM CDT Gender Identity Not on file Sexual Orientation Not on file Last Filed Vital Signs Vital Sign Reading Time Taken Comments Blood Pressure 110/72 06/10/2025 12:53 PM MACHINIST JOB SETTER Pulse 84 06/10/2025 12:53 PM MACHINIST JOB SETTER Temperature 36.7 C (98 F) 06/10/2025 12:53 PM MACHINIST JOB SETTER Respiratory Rate 18 06/10/2025 12:53 PM MACHINIST JOB SETTER Oxygen Saturation 98% 06/10/2025 12:53 PM MACHINIST JOB SETTER Inhaled Oxygen Concentration - - Weight 76.8 kg (169 lb 4.8 oz) 06/10/2025 12:53 PM MACHINIST JOB SETTER Height 170.2 cm (5' 7) 06/10/2025 12:53 PM MACHINIST JOB SETTER Body Mass Index 26.52 06/10/2025 12:53 PM MACHINIST JOB SETTER Plan of Treatment Upcoming Encounters Date Type Department Care Team (Late st Contact Info) Description 12/09/2025 1:00 PM CDT Office Visit [facility] [address] [place] [phone] Wili Solomon MD [address] [place] [address] Discharge Disposition: Discharged to home or Selfcare Health Maintenance Due Date Last Done Comments Varicella Immunization (1 of 2 - 13+ 2-dose series) 11/23/2003 Hepatitis B Immunization (1 of 3 - [...] Completed 03/19/20, 10/09/2021, 04/20/2021, Additional history exists Human Papillomavirus (HPV) Immunization (No Doses Required) Completed Meningococcal Immunization (ACWY) Aged Out No longer [...] PM CDT [facility] - Crisis Services Mental Health Services Stress Recommended 01/15/2025 12:04 PM CDT [employer] - Foreclosure Prevention Program Help Hotlines Stress Recommended 01/15/2025 12:04 PM CDT [facility] Housing Insecurity Needs Utilities Recommended 01/15/2025 12:01 PM CDT [facility] Programs (CUP) - The [facility]UB (Housing, Utilities, Basic Needs) Help Find Housing Housing Stability Recommended 01/15/2025 12:01 PM CDT [facility] Help Find Housing, Group Director Experience Housing, Residential Housing Housing Stability Recommended 01/15/2025 12:01 PM CDT [facility] Emergency Food Food Insecurity Recommended 01/15/2025 11:59 AM CDT [id number] Food Pantry Food Insecurity Recommended 01/15/2025 11:59 AM CDT [facility] Food Insecurity Recommended 01/15/2025 11:59 AM CDT [facility] [employer] - Food Pantry [...] 2:52 PM DICTATING PHYSICIAN: Renzo Soares MD, [facility]. HISTORY: As below. ADDITIONAL [...] 2:52 PM DICTATING PHYSICIAN: Ren[facility] HISTORY: As below. ADDITIONAL TECHNOLOGIST [...] of the gallbladder fundus. No acute sonographicabnormality. Anirudh Denny [facility] US ORDERABLES Fi nal Result * URINALYSIS REFLEX IF INDICATED BY ABNORMAL RESULTS (04/19/2025 2:05 PM CDT) SPECIFIC GRAVITY 1.010 1.003 - 1.030 04/19/2025 2:41 PM CDT [facility] URINE PH 7.0 5.0 - 9.0 04/19/2025 2:41 PM CDT [facility] WBC ESTERASE Negative Negative 04/19/2025 2:41 PM CDT [facility] NITRITE Negative Negative 04/19/2025 2:41 PM CDT [facility] PROTEIN, RANDOM URINE Negative Negative 04/19/2025 2:41 PM CDT [facility] URINE GLUCOSE, QUAL Negative Negative 04/19/2025 2:41 PM CDT [facility] URINE KETONES Negative Negative 04/19/2025 2:41 PM CDT [facility] UROBILINOGEN Normal Normal mg/dL 04/19/2025 2:41 PM CDT [facility] URINE BLOOD Negative Negative kendal/ul 04/19/2025 2:41 PM CDT [facility] URINALYSIS COLOR Yellow 04/19/20 2:41 PM CDT [facility] URINALYSIS CLARITY Clear 04/19/2025 2:41 PM CDT [facility] Urine URINE SPECIMEN OBTAINED BY CLEAN CATCH PROCEDURE / Unknown Non-Phlebotomy Collection / Unknown 04/19/2025 2:05 PM CDT 04/19/2025 2:14 PM CDT us Aubrey Steven MD URINE ORDERABLES Final R esult Performing Organization Address City/[facility]/ZIP Co de Phone Number [facility] [address] [place] [address] * Gold Top Tube (04/19/2025 12:55 PM CDT) Blood No Phlebotomy Charged / Unknown 04/19/2025 12:55 PM CDT 04/19/2025 1:53 PM CDT us Aubrey Steven MD CHEMISTRY ORDERABLES Fin al Result Performing Organization Address City/[facility]/ZIP Co de Phone Number [facility] [address] [place] [address] * Blue Top Tube (04/19/2025 12:55 PM CDT) Blood No Phlebotomy Charged / Unknown 04/19/2025 12:55 PM CDT 04/19/2025 1:53 PM CDT us Aubrey Steven MD HEMATOLOGY ORDERABLES Fi nal Result Performing Organization Address City/[facility]/ZIP Co de Phone Number [facility] [address] [place] [address] * (ABNORMAL) CBC with Auto Differential (04/19/2025 12:55 PM CDT) [facility] WBC 8.22 4.00 - 12.00 10(3)/mcL 04/19/2025 1:56 PM CDT [facility] RBC 4.56 3.80 - 5.30 10(6)/mcL 04/19/2025 1:56 PM CDT [facility] HEMOGLOBIN (HGB) 13.5 12.0 - 15.8 g/dL 04/19/2025 1:56 PM CDT [facility] HEMATOCRIT (HCT) 39.4 36.0 - 47.0 % 04/19/2025 1:56 PM CDT [facility] MCV 86.4 82.0 - 96.0 fL 04/19/2025 1:56 PM CDT [facility] MCH 29.6 26.0 - 34.0 pg 04/19/2025 1:56 PM CDT [facility] MCHC 34.3 31.0 - 36.0 g/dL 04/19/2025 1:56 PM CDT [facility] PLATELET COUNT 277 140 - 440 10(3)/mcL 04/19/2025 1:56 PM CDT [facility] RDW 12.5 11.8 - 15.5 % 04/19/2025 1:56 PM CDT [facility] MPV 11.0 9.7 - 12.4 fL 04/19/2025 1:56 PM CDT [facility] NEUTROPHILS 63.5 47.0 - 73.0 % 04/19/2025 1:56 PM CDT [facility] LYMPHOCYTES 27.1 18.0 - 42.0 % 04/19/2025 1:56 PM CDT [facility] MONOCYTES 7.3 4.0 - 12.0 % 04/19/2025 1:56 PM CDT [facility] EOSINOPHILS 1.0 0.0 - 5.0 % 04/19/2025 1:56 PM CDT [facility] BASOPHILS 0.6 0.0 - 1.0 % 04/19/2025 1:56 PM CDT [facility] IMMATURE GRANULOCYTE 0.5(H) 0.0 - 0.4 % 04/19/2025 1:56 PM CDT [facility] Comment:Immature Granulocyte s includes Metamyelocytes, Myelocytes, and Promyelocytes. ABSOLUTE NEUTROPHILS 5.22 1.60 - 7.70 10(3)/mcL 04/19/2025 1:56 PM CDT [facility] ABSOLUTE LYMPHOCYTES 2.23 1.30 - 3.20 10(3)/mcL 04/19/2025 1:56 PM CDT [facility] ABSOLUTE MONOCYTES 0.60 0.20 - 1.00 10(3)/mcL 04/19/2025 1:56 PM CDT [facility] ABSOLUTE EOSINOPHIL 0.08 0.00 - 0.40 10(3)/mcL 04/19/2025 1:56 PM CDT [facility] ABSOLUTE BASOPHILS 0.05 0.00 - 0.10 10(3)/mcL 04/19/2025 1:56 PM CDT [facility] ABSOLUTE IMMATURE GRANULOCYTE 0.04(H) 0.00 - 0.03 10 (3) mcL. 04/19/2025 1:56 PM CDT [facility] NRBC PER 100 WBC 0 04/19/20 1:56 PM CDT [facility] Blood Venipuncture / Unknown 04/19/2025 12:55 PM CDT 04/19/2025 1:52 PM CDT us Aubrey Steven MD HEMATOLOGY ORDERABLES Fi nal Result [facility] [address] [place] [address] * (ABNORMAL) Comprehensive Metabolic Panel (Cmp) [id number] (04/19/2025 12:55 PM CDT) SODIUM 140 136 - 145 mmol/L 04/19/2025 2:12 PM CDT [facility] POTASSIUM 3.6 3.5 - 5.1 mmol/L 04/19/2025 2:12 PM CDT [facility] CHLORIDE 110(H) 98 - 107 mmol/L 04/19/2025 2:12 PM CDT [facility] CO2, VENOUS 21(L) 22 - 30 mmol/L 04/19/2025 2:12 PM CDT [facility] ANION GAP 12.6 <18.0 mmol/L 04/19/2025 2:12 PM CDT [facility] GLUCOSE 85 70 - 99 mg/dL 04/19/2025 2:12 PM CDT [facility] BUN 12 5 - 18 mg/dL 04/19/2025 2:12 PM CDT [facility] CREATININE, BLOOD 0.67 0.60 - 1.00 mg/dL 04/19/2025 2:12 PM CDT [facility] BUN/CREATININE RATIO 18 12 - 20 ratio 04/19/2025 2:12 PM CDT [facility] TOTAL PROTEIN 6.7 6.0 - 8.0 g/dL 04/19/2025 2:12 PM CDT [facility] ALBUMIN 4.4 3.5 - 5.0 g/dL 04/19/2025 2:12 PM CDT [facility] A/G RATIO 1.9 1.0 - 2.2 04/19/2025 2:12 PM CDT [facility] CALCIUM 9.1 8.7 - 10.5 mg/dL 04/19/2025 2:12 PM CDT [facility] T BILI 0.3 0.2 - 1.2 mg/dL 04/19/2025 2:12 PM CDT [facility] SGOT (AST) 10 <43 U/L 04/19/2025 2:12 PM CDT [facility] SGPT (ALT) 12 <56 U/L 04/19/2025 2:12 PM CDT [facility] ALKALINE PHOSPHATASE 46 40 - 150 U/L 04/19/2025 2:12 PM CDT [facility] GFR, ESTIMATED >60 >=60 04/19/2025 2:12 PM CDT [facility] Comment: Creatinine Clearance is the preferred criteria for selecting drug dose adjustments in renally impaired patients. The GFR is provided as additional pertinent clinical information. GFR is reported in mL/min/1.73 sq m. Calculation based on the 2020 Chronic Kidney Disease Epidemiology Collaboration (CKD-EPI) equation refit without adjustment for race. GFR, EST. >60 >=60 2:12 PM CDT [facility] Comment: Creatinine Clearance is the preferred criteria for selecting drug dose adjustments in renally impaired patients. The GFR is provided as additional pertinent clinical information. GFR is reported in mL/min/1.73 sq m. Calculation based on the 2009 Chronic Kidney Disease Epidemiology Collaboration (CKD-EPI). GFR, EST. NONAFRICAN >60 >=60 04/19/2025 2:12 PM CDT [facility] Comment: Creatinine Clearance is the preferred [...] Steven MD CHEMISTRY ORDERABLES Fin al Result [facility] [address] [place] [address] * CT CHEST W CONTRAST (03/19/2025 10:38 AM CDT) Anatomical Region Laterality Modality Chest N/A Computed Tomogra phy 03/19/2025 10:3 8 AM CDT Impressions 03/19/2025 11:43 AM CDT IMPRESSION: Resolution of right middle lobe infiltrates. No new suspicious lung nodules. Narrative 03/19/2025 11:[address] CHEST W CONTRAST : 03/19/2025 10:38 AM DICTATING PHYSICIAN: EMELY CABALLERO [facility]. HISTORY: As below. ADDITIONAL [...] 03/19/2025 10:38 AM DICTATING PHYSICIAN: EMELY CABALLERO [facility]. HISTORY: As below. ADDITIONAL TECHNOLOGIST [...] No new suspicious lungnodules. us Cinthia Noriega MATERIAL HANDLER FLOORPERSON, WAFER MACHINE OPERATOR IMG CT ORDERABLES Brit escoto Result from Last 3 Months Insurance MEDICAID [employer] Care Teams [employer] Relationship Specialty Start Date End Date Mervin Kevin MD [facility] [address] [address] PCP - General Family Medicine 11/21/24
--- OUTSIDE RECORDS SUMMARY | 2025-06-12 18:03 | XMS_ITS | Clinical Summary ---
Author Organization [facility] Address [address] [place] [address] Care Team Providers Care Toe Laster Name Role Phone Mervin Kevin MD Primary Care Provider [phone] Source Comments [facility],non-owned Affiliates and Associated Physician Practices is amultiple site organization consisting of ambulatory clinics and hospital sitesin [place], [place], [place] and [place]. This disclosure is being madepursuant to the Care Everywhere program and may not contain all information available regarding this patient. Last updated 18.[facility] Allergies Active Allergy Reactions Criticality Noted Date Comments Nitrofurantoin Anaphylaxis,Urticaria,Rash High 12/29 Pramipexole Urticaria Medium 03/25/2017 Hives Medications * This document contains information received [...] mouth once daily 14 capsule 4 Active ondansetron, disintegrating , (Zofran ODT) 4 MG tablet Take 1 (one) tablet by mouth every 8 hours as needed for Nausea/Vomiting Allow tablet to dissolve on the tongue 14 tablet 4 Active Eliquis 5 MG tablet Take 1 (one) tablet by mouth 2 times daily 5 Active escitalopram (Lexapro) 10 MG tablet Active fluticasone propionate (Flonase) 50 MCG/ACT nasal spray Murray 2 (two) sprays into the nose once daily Active Accu-Chek Guide test strip 2 times daily 5 Active HYDROcodone-ac etaminophen ([place]) 5-325 MG tablet Take 1 (one) tablet [...] vitamin D, ergocalciferol , (Drisdol) 1.25 MG (52001 UT) capsule TAKE 1 CAPSULE BY MOUTH ONE TIME PER WEEK 5 Active fluconazole (Diflucan) 150 MG tablet Take 1 (one) tablet by mouth once FOR 1 DOSE. 5 Active Amoxicillin & Vonoprazan (Voquezna Dual Darryn) 500 & 20 MG THPK SEE ADMIN INSTRUCTIONS 5 Active guaiFENesin ER 12hr (Mucinex) 600 MG tablet Take 1 (one) tablet by mouth 2 times daily as needed 5 Active omeprazole (PriLOSEC) 20 MG capsule TAKE 1 CAPSULE BY MOUTH TWICE A DAY X2 WEEKS 5 Active Active Problems Patient Care Coordination No te Formatting of this note migh t be different from the original. Nopp/mfcc 12/2017 GBS + (06/09/2018) Problem Noted Date Diagnosed Date History of MRSA infection 04/14/2018 Spinal stenosis 04/14/2018 Encounter for anatomic survey 03/06/2018 Overview (04/03/2018): 03/06/2018 Yu Sanchez was screened for depression using the [place] Depression Scale (E[facility] [...] symptoms. Recommend 3rd trimester neonatology consult at [facility] due to psychiatric medications, if continued into [...] from the original note were not included. [facility] PATIENT--PLEASE CALL [phone] (ex 2) IF TRIAGED OR ADMITTED Care Provider: Dr. Erasmo Wood [facility] [place] consultants involved: RN-Rosana/Jayce; MFM-Vitor; Cleft Team-Kamila Mojica; Cardiology-Vitor Diagnosis: Cleft Lip & Palate follow up: per Cleft Team consult 03.06: Family will call to schedule a visit with the cleft palate team after the baby is born. Import Clerk: undecided as of 04.03 Planned surveillance: Repeat ultrasound at [facility] at 32w & 36w; released from [facility] on 04.03.2018 Delivery location, mode, and GA: [facility], desires vaginal delivery Genetics note: genetic [...] laboratory and call the genetic counselors at [phone] or [phone] to notify that specimen is ready for sendout. Order can be placed by genetic counselor in baby's chart at that time. Please request Genetics consult postnatally if clinically indicated by calling the Genetics office at [phone] prior to ordering genetic studies. Safe Deposit Clerk Concerns: 03/06/18- Patient with history of bipolar [...] Encounters Date Type Department Care Team Description 06/05/2025 11:30 AM REFRIGERATION LEAD Office Visit [facility] - Rheumatology [address] [place] [address] Donny Rodas MD Fibromyalgia (Primary Dx); Splenic vein thrombosis 05/29/2025 Travel 05/29/2025 Telephone [facility] - Rheumatology [address] [place] [phone] Donny Rodas MD Appointment 05/22/2025 11:45 AM REFRIGERATION LEAD Office Visit [facility] - Vascular Surgery [address] [place] [phone] Alexa Landers MD Abdominal pain, unspecified abdominal location (Primary Dx) 05/22/2025 Travel 05/06/2025 Travel 04/19/2025 Telephone [facility] - Vascular Surgery [address] [place] [phone] Alexa Landers MD Medication Issue 04/17/2025 9:45 AM CDT Office Visit [facility] - Vascular Surgery [address] [place] [phone] Alexa Landers MD Right upper quadrant pain (Primary Dx) 04/17/2025 7:40 AM CDT - 04/17/2025 11:59 PM CDT Hospital Encounter [facility] CAT SCAN [address] [place] [address] Alexa Landers MD Discharge Disposition: Home or Self Care 04/17/2025 Travel 04/01/2025 Travel 03/28/2025 Telephone [facility] - Vascular Surgery [address] [place] [phone] Alexa Landers MD Follow-up 03/28/2025 Travel from [...] PM CDT Legal Sex Female 3:34 PM REFRIGERATION LEAD Gender Identity Female 02/21/2024 3:10 PM CDT Sexual Orientation Not on file Last Filed Vital Signs Vital Sign Reading Time Taken Comments Blood Pressure 96/62 06/05/2025 11:22 AM REFRIGERATION LEAD Pulse 86 06/05/2025 11:22 AM REFRIGERATION LEAD Temperature 36.7 C (98 F) 06/05/2025 11:22 AM REFRIGERATION LEAD Respiratory Rate 16 02/10/2024 2:47 PM CDT Oxygen Saturation 98% 06/05/2025 11:22 AM REFRIGERATION LEAD Inhaled Oxygen Concentration 21% 06/30/2018 8 :39 AM REFRIGERATION LEAD Weight 76.7 kg (169 lb) 06/05/2025 11:22 AM REFRIGERATION LEAD Height 170.2 cm (5' 7.01) 06/05/2025 11:22 AM C Body Mass Index 26.46 06/05/2025 11:22 AM REFRIGERATION LEAD Plan of Treatment Upcoming Encounters Date Type Department Care Team (Late st Contact Info) Description 09/23/2025 12:30 PM CDT Office Visit [facility] - GI [address] [facility] [place] [phone] Alexa Landers MD [facility] [place] [phone] Health Maintenance Due Date Last Done Comments [...] by Bennie Gonzalez MD > Dictated by Structural Steel Worker Apprentice IAnkur MD have personally reviewed and interpreted this examination/study. 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 > Interpreting Provider: Ankur Castro MD on 04/17/2025 3:38 PM Alexa Landers MD CT ORDERABLES Final Resul t * ISTAT CREATININE (04/17/2025 8:06 AM CDT) [facility] Creatinine POCT 0.80 0.60 - 1.30 mg/dL 04/17/2025 8:07 AM CDT [facility] [place] [employer] eGFR by CKD-EPI >90 >90 mL/min/1.7 3 m2 04/17/2025 8:07 AM CDT [facility] [employer] Sample iSTAT QUITA 04/17/2025 8:07 AM CDT [facility] Blood BLOOD SPECIMEN / Unknown 04/17/2025 8:06 AM CDT 04/17/2025 8:07 AM CDT Alexa Landers MD LAB - POINT OF CARE ORDERAB LES Final Result [facility] [address] [place] [phone], [facility] [phone] * HIV-1 HIV-2 ANTIBODY + HIV P24 AG PANEL (11/24/2018 2:32 PM CDT) [facility] HIV1/2 Ab + P24 Ag Non Reactive Non Reactive 11/24/2018 3:32 PM CDT [facility] Blood BLOOD SPECIMEN / Unknown Venipuncture / Unknown 11/24/2018 2:32 PM CDT 11/24/2018 2:35 PM CDT Narrative [facility] - 11/24/2018 3:32 PM CDT No Laboratory evidence of HIV infection. us Alondra Saxena DO LAB - CHEMISTRY ORDERAB LES Final Result [facility] [address] [place] [address] * PAP LB RFLX HPV ASCU (11/24/2018 2:32 PM CDT) Diagnosis Comment 11/29/2018 11:13 AM CDT [facility] ([facility]) Comment:NEGATIVE FOR INTRAEP ITHELIAL LESION OR MALIGNANCY. Specimen Adequacy Comment 019 11:13 AM CDT [facility] ([facility]) Comment: Satisfactory for evaluation. Endocervical and/or squamous metaplastic cells (endocervical component) are present. Performed by Comment 11/29/2018 11:13 AM CDT [facility] ([facility]) Comment:Martha Napier Cytote chnologist (ASCP) Comment . 11/29/2018 11:13 AM CDT [facility] ([facility]) Note Comment 11/29/2018 11:13 AM CDT [facility] ([facility]) Comment: The Pap smear is a screening test designed to aid in the detection of premalignant and malignant conditions of the uterine cervix. It is not a diagnostic procedure and should not be used as the sole means of detecting cervical cancer. Both false-positive and false-negative reports do occur. Note Comment 11/29/2018 11:13 AM CDT [facility] ([facility]) Comment: The HPV DNA reflex criteria were not met with this specimen result therefore, no HPV testing was performed. Pathology/Cytolo gy ENTIRE ENDOCERVIX / Unknown Collection / Unknown 11/24/2018 2:32 PM CDT 11/25/2018 7:38 AM CDT [facility] ([facility]) - 11/29/2018 11:13 AM CDT Performed at: [address] [place] [id number] Airset Caster: Fe Cruz MD, Phone: [phone] Specimen Comment: Source.............Cervix;Endocervix Specimen Comment: No. of containers..01 ThinPrep Vial Alondra Saxena DO LAB - PATHOLOGY/CYTOLOG Y ORDERABLES Final Result [facility] ([facility]) [address] [place] [address] * HEPATITIS C ANTIBODY (11/24/2018 2:32 PM CDT) HCV Antibody Screen Non Reactive Non Reactive 11/24/2018 4:08 PM CDT [facility] HCV S/C Ratio 0.13 0.00 - 0.79 11/24/2018 4:08 PM CDT [facility] Comment: Ubgjxy-sm-wghcer ratio (S/CO) <0.80: Non Reactive Blood BLOOD SPECIMEN / Unknown Venipuncture / Unknown 11/24/2018 2:32 PM CDT 11/24/2018 2:36 PM CDT Narrative [facility] - 11/24/2018 4:08 PM CDT Non Reactive - Antibodies to Hepatitis C virus (HCV) were not detected, result does not exclude early acute HCV infection. Alondra Saxena DO LAB - CHEMISTRY ORDERAB LES Final Result Performing Organization Address City/[facility]/ZIP Co de Phone Number [facility] [address] [place] [address] from Last 3 Months or Most Recently Relevant to Health Maintenance Insurance [facility] Advance Directives * Full Code (Latest Code Status on File) Date Activated Date Inactivated Comments 06/28/2018 1:00 PM 06/30/2018 1:33 PM Care Teams Toe Laster Relationship Specialty Start Date End Date Mervin Kevin MD [address] [place] [phone] PCP - General Family Medicine 12/29/17
--- OUTSIDE RECORDS SUMMARY | 2025-06-12 18:03 | XMS_ITS | Clinical Summary ---
Author Organization [facility] Address [address] [place] [phone] Care Team Providers Care Dental Internship Name Role Phone Mervin Kevin MD Primary Care Provider [phone] Social History Tobacco Use Types Packs/Day Years Used Date Smoking Tobacco: Never Assessed Comments Unknown Sex and Gender Information Value Date Recorded Sex Assigned at Not on file Legal Sex Female 10:18 AM ORACLE R12 DEVELOPER Gender Identity Not on file Sexual Orientation Not on file Last Filed Vital Signs Vital Sign Reading Time Taken Comments Blood Pressure 111/67 07/29/2017 9:58 AM ORACLE R12 DEVELOPER Pulse 72 07/29/2017 9:58 AM ORACLE R12 DEVELOPER Temperature - - Respiratory Rate - - Oxygen Saturation - - Inhaled Oxygen Concentration - - Weight 68 kg (150 lb) 07/29/2017 9:58 AM ORACLE R12 DEVELOPER Height 170.2 cm (5' 7) 07/29/2017 9:58 AM ORACLE R12 DEVELOPER Body Mass Index 23.49 07/29/2017 9:58 AM ORACLE R12 DEVELOPER Plan of Treatment Health Maintenance Due [...] patient's age to complete this topic Insurance [address] [address] [place] [id number] Care Teams Dental Internship Relationship Specialty Start Date End Date Mervin Kevin MD [facility] [address] [address] PCP - General FAMILY PRACTICE 06/30/17
--- OUTSIDE RECORDS SUMMARY | 2025-06-12 18:03 | XMS_ITS | Data Portability ---
Author Organization [place] [facility] [employer] [facility], Main Office Address [address] [place] [address] Care Team Providers Care Fuel Cell Assembler Name Role Phone MERVIN KEVIN Referring Provider [...] 90 mcg/actua tion aerosol inhaler 2024 025 [facility]/Pharmacy #[id number], [address], [place], [address], 10/02/2024 12:40:21 Wixela Inhub 250 mcg-50 mcg/dose powder for inhalatio n 2024 025 [id number] [address] [place], [address], 10/02/2024 12:40:22 ipratropi um bromide 42 mcg (0.06 %) nasal spray 2024 025 [id number], [address] [place], [address], 10/02/2024 12:40:21 albuterol sulfate HFA 90 mcg/actua tion aerosol inhaler 2023 024 [facility]/Pharmacy #[id number], [address] [place], [address], 01/12/2024 11:00:41 Wixela Inhub 250 mcg-50 mcg/dose powder for inhalatio n 2023 024 [facility]/Pharmacy #[id number], [address] [place], [address], 01/12/2024 11:00:41 ipratropi um bromide 42 mcg (0.06 %) nasal spray 2023 024 [facility]/Pharmacy #[id number], [address], [place], [address], 01/12/2024 11:00:42 albuterol sulfate HFA 90 mcg/actua tion aerosol inhaler 2022 023 [facility]/Pharmacy #[id number], [address], [place], [address], 02/07/2023 10:06:41 ipratropi um bromide 42 mcg (0.06 %) nasal spray 2022 023 [facility]/Pharmacy #[id number], [address], [place], [address], 02/07/2023 10:00:36 Patient TargetsNo targets recorded. Patient Instructions Encounter Date Encounter Id Patient Instructions Last Modified By Organization Details Last Modified Time 02/07/2023 [id number] complete PFT w/ post bronchodilator spirometry* - No auth needed Not available 01/02/2024 15:47:26 01/12/2024 [id number] complete PFT w/ post bronchodilator spirometry* [email or web address] Not available 08/13/2024 17:15:39 10/02/2024 [id number] complete PFT w/ post bronchodilator spirometry* Not available 10/02/2024 12:40:16 Reason for Referral None Reported. Results Created Date Observation Date Name Description Value Unit Range Abnormal Flag Note LastModifiedBy Organization Detail LastModifiedTime 07/28/1907/28/2022 [place], modif ied spike villafana ow study No observ ation record ed. [id number] [facility] [address] [place], [address], 08/25/2022 13:32:14 07/28/19 23 07/28/2022 CT, chest , w/o contr ast No observ ation record ed. [id number] [facility] [address] [place], [address], 08/25/2022 13:32:14 08/03/19 23 07/28/2022 [place], modif ied spike villafana ow study No observ ation record ed. [id number] [facility] ([facility] Scheduling) [address] [place], [address], 08/25/2022 13:32:14 02/02/20 23 01/31/2023 compl ete PFT w/ [facility] hodil ator michelle metry * No observ ation record ed. [facility] (One Call Scheduling) [address] [place], [address], 02/01/2023 17:29:30 10/05/19 25 10/02/2024 compl ete PFT w/ [facility] hodil ator michelle metry * No observ ation record ed. [facility] (One Call Scheduling) [address] [place], [address], 10/04/2024 17:32:29 Result Notes None recorded. 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 Procedures Surgical History Date Name Laterality Status Provider Name and Address Organization Details Recorded Time 11/19/19 23 Hysterectomy completed Irma Mohr MA [place] [facility] [place] [facility] 02/07/2023 09:43:48 section completed Not Available [facility] 08/25/2022 13:29:35 Imaging Results None recorded. Procedure Notes None recorded. Medical Equipment None Reported. Allergies Allergen ID Allergen Name Allergen Category Reaction Reaction Severity Criticality Documentation Date Start Date Code Code System Note Provider Name and Address Organization Details Recorded Time 69068 Macrobid medicatio n Not available Not available Not available 08/25/2022 94121 1 RxNorm Not Available [facility] 13:32:12 Medications Name Sig Start Date Stop [...] (BMI) Heart rate Body height Oxygen saturation Heart rate Respiratory rate Body temperature Body weight Systolic And Diastolic Provider Name and Address Organization Details Last Updated DateTime 3 26 kg/m2 72 /min 165.1 cm 97 % 72 /min 15 /min 98.6 [degF] 32666.4 1 g 110/66 mm[Hg] Not Available [facility] 3 13:30:03 Date Recorded Body mass index (BMI) Heart rate Body height Oxygen saturation Heart rate Respiratory rate Body temperature Body weight Systolic And Diastolic Provider Name and Address Organization Details Last Updated DateTime 3 26 kg/m2 61 /min 165.1 cm 97 % 61 /min 15 /min 98.2 [degF] 02854.4 1 g 108/60 mm[Hg] Not Available [facility] 3 13:30:04 Date Recorded Heart rate Respiratory rate Provider N abelino and Address Organization Details Last Updated DateTime 10/02/2024 80 /min 15 /min Ruslan Reid MD [address] [place] [address], [address], [facility] [employer] 10/02/2024 12:45:32 Date Recorded Body height Body mass index (BMI) Body weight Body temperature Heart rate Oxygen saturation Systolic And Diastolic Provider Name and Address Organization Details Last Updated DateTime 5 165.1 cm 26.6 kg/m2 49425.7 8 g 98.3 [degF] 80 /min 98 % 116/66 mm[Hg] Irma Mohr MA [place] [employer] [facility] [employer] 5 12:20:22 Date Recorded Body height Body mass index (BMI) Body weight Oxygen saturation Body temperature Heart rate Systolic And Diastolic Provider Name and Address Organization Details Last Updated DateTime 4 165.1 cm 25 kg/m2 37963.8 6 g 98 % 98.1 [degF] 87 /min 118/68 mm[Hg] Fabian Lowe CMA [place] [employer] [facility] [employer] 4 10:40:20 Date Recorded Heart rate Oxygen saturation Heart rate Respiratory rate Provider Name and Address Organization Details Last Updated DateTime 02/07/2023 59 /min 99 % 59 /min 15 /min Ruslan Reid MD [address] [facility], [facility] [address], [place], [address] , [employer] [facility] [employer] 02/07/2023 10:07:55 Date Recorded Body height Body mass index (BMI) Body weight Body temperature Systolic And Diastolic Provider Name and Address Organization Details Last Updated DateTime 02/07/2023 165.1 cm 25 kg/m2 91643.8 6 g 98.1 [degF] 110/68 mm[Hg] Irma Mohr MA [employer] [facility] [employer] 3 09:47:14 Social History Question Answer Notes LastModified by Organizat ion Details LastModified Time Tobacco Smoking Status Former Smoker quit 3 years ago Irma Mohr MA [facility], [employer] 10/02/2024 12:17:03 What Is Your Level Of Caffeine Consumption? Occasional [id number] Information not available 08/25/2022 In The 14 Days Before Symptom Onset, Have You Had Close Contact With A Laboratory-confi rmed COVID-19 While That Case Was Ill? No [id number].99813 10203 Information not available 08/25/2022 In The 14 Days Before Symptom Onset, Have You Had Close Contact With A Person Who Is Under Investigation For COVID-19 While That Person Was Ill? No MIGRATION.42000 31665 Information not available 08/25/2022 What Type Of Diet Are You Following? REGULAR MIGRATION. 66842 Information not available 08/25/2022 Do You Have An Electrostatic Air Filter? Yes [id number].21909 38305 Information not available 08/25/2022 Are There Any Guns Present In Your Home? No MIGRATION.87111 95367 Information not available 08/25/2022 Do You Have A Humidifier? Yes MIGRATION.57919 78168 Information not available 08/25/2022 Where Do You Live? [place] MIGRATION.38558 50959 Information not available 08/25/2022 Do You Have Moisture Problems In Your Home? No MIGRATION.14818 85594 Information not available 08/25/2022 What Was The Date Of Your Most Recent Tobacco Screening? 10/02/2024 Information not available 10/02/2024 Do You Have Any Pets? Yes MIGRATION.82648 00365 Information not available 08/25/2022 Do You Use Your Seat Belt Or Car Seat Routinely? Yes Information not available 10/02/2024 Do You Have Smoke And Carbon Monoxide Detectors In Your Home? Yes MIGRATION.27082 06494 Information not available 08/25/2022 At What Age Did You Start Smoking Tobacco? 13 MIGRATION.58993 84286 Information not available 08/25/2022 Are You Passively Exposed To Smoke? No MIGRATION.05944 01456 Information not available 08/25/2022 How Much Tobacco Do You Smoke? No MIGRATION.21131 26235 Information not available 08/25/2022 Do You Use Sunscreen Routinely? No MIGRATION.23688 08432 Information not available 08/25/2022 How Many Years Have You Smoked Tobacco? 16 MIGRATION.54777 12531 Information not available 08/25/2022 Have You Recently Traveled Abroad? No MIGRATION.53250 64659 Information not available 08/25/2022 Do You Have Any Dietary Restrictions? No MIGRATION.94208 65046 Information not available 08/25/2022 Sex: Female Functional Status Question Answer Note LastModified by Organizat ion Details LastModified Time Do you use any illicit or recreational drugs? Yes marijuana MIGRATION.61877 35813 Information not available 08/25/2022 Do you or have you ever used any other forms of tobacco or nicotine? No Information not available 10/02/2024 What is your level of alcohol consumption? None MIGRATION.66118 35609 Information not available 08/25/2022 Have you been exposed to chemicals or toxins? 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 Heavy MIGRATION.41069 31378 Information not available 08/25/2022 Mental Status Question Answer Note LastModified by Organizat ion Details LastModified Time Do you feel stressed (tense, restless, nervous, or anxious, or unable to sleep at night)? PM2237-4 [id number] 6 Information not available 08/25/2022 Family History Relationship Description Onset Age of this Age Resolved Age Notes LastModified by Organization Details LastModified Time Father Family history of malignant neoplasm MIGRATION.651 [id number] Not available 08/25/2022 13:29:36 Father Blood coagulation disorder MIGRATION.649 [id number] Not available 08/25/2022 13:29:36 Father Diabetes mellitus MIGRATION.514 [id number] Not available 08/25/2022 13:29:36 Father Chronic obstructive pulmonary disease MIGRATION.235 [id number] Not available 08/25/2022 13:29:36 Brother Asthma MIGRATION.055 [id number] Not available 08/25/2022 13:29:36 Sister Asthma MIGRATION.842 [id number] Not available 08/25/2022 13:29:36 Paternal Grandmother Asthma MIGRATION.195 [id number] Not available 08/25/2022 13:29:36 Maternal Grandmother Asthma MIGRATION.652 [id number] Not available 08/25/2022 13:29:36 Medical History Condition [...] YOU BEEN HOSPITALIZED OR SEEN IN [facility] IN THE PAST YEAR ? [...] dose 04/20/2021 completed Not Available [facility] 4 17:07:19 COVID-19, mRNA, LNP-S, PF, 30 mcg/0.3 mL dose 03/30/2021 completed Not Available [facility] 4 17:07:19 Past Encounters Encounter ID Performer Location Encounter Start Date Encounter Closed Date Diagnosis/Indication Diagnosis SNOMED-CT Code Diagnosis ICD10 Code Diagnosis IMO Codes Diagnosis Note [id number] MD CLAUDIA Houston_GMG [address] [address] 04/09/2021 00:00:00 04/09/2021 09:36:09 [id number] MD CLAUDIA Houston_GMDena [address] [address] 04/23/2021 00:00:00 04/23/2021 11:07:07 [id number] MD JOSSUE Preciado [address] [address] 10/08/2021 00:00:00 10/08/2021 15:19:33 [id number] MD CLAUDIA Preciado_GMDena [place] [address] 10/22/2021 00:00:00 10/22/2021 15:34:32 [id number] MD CLAUDIA Preciado_GMDena Pulmonolo [facility] [address] [place] [address] 04/22/2022 00:00:00 04/22/2022 13:17:16 [id number] MD CLAUDIA Preciado_GMDena Pulmonolo [facility] [address] [place] [address] 07/15/2022 00:00:00 07/15/2022 16:05:23 [id number] MD CLAUDIA Preciado_GMDena Pulmonolo [address] [address] 08/05/2022 00:00:00 08/05/2022 15:35:19 [id number] MD CLAUDIA Preciado_DAVID [address] [address] 02/07/2023 09:27:31 02/08/2023 10:11:10 Posterior rhinorrhea 52421358 R09.82 Severe per sistent asthma 821465858 J45.50 [id number] MD CLAUDIA Preciado_GMDena [address] [address] 01/12/2024 10:29:39 01/13/2024 08:21:56 Severe persistent asthma 604397273 J45.50 Posterior rhinorrhea 758 79795 R09.82 [id number] Karie Juares NP [facility] [address] [place] [address] 07/05/2024 14:05:19 07/05/2024 17:28:27 [id number] [facility] [address] [place] [address] 08/02/2024 14:32:51 08/02/2024 15:49:42 [id number] MD JOSSUE Preciado Pulmon[place] [address] [address] 10/02/2024 11:57:56 10/03/2024 13:12:21 Severe persistent asthma 861269333 J45.50 Posterior rhinorrhea 758 23321 R09.82 Health Concerns Section Related Observation LastModified by Organization Detai ls LastModified Time None Recorded Concern Status LastModified by Organization Details LastModified Time None Recorded Advance Directives Directive None Recorded Payers Insurance Date Sequence Insurance Name Policy Number Policy Barrett Covered Member ID Barrett Member ID Guarantor Name 10/02/2024 1 [place] [id number] 1 Yu D Daniel [id number] Yu D Daniel 12/01/2024 1 [place] [facility] Ludell D Daniel [id number] Ludell D Daniel 10/30/2024 2 [place] [id number] 1 Ludell D Daniel [id number] Ludell D Daniel Notes Date Note Type Note [...] 20 lbs objectsAlleviating factors: restModified [employer] [place] (mMRC) Dyspnea Scale - Grade 2Grade 0 [...] chance of dozing. Ruslan Reid MD [address] [facility], [facility] [address], [place], [address], [place] [facility] 08/17/2023 14:56:20 01/12/2024 text/html Primary care/Referring provider: Mervin Kevin, MDPatient is here to go over her asthma management.Initial development of shortness of breath: 2004Duration of shortness of breath: 19 yearsCondition of shortness of breath: stableTiming of shortness of breath: morning and bedtimeFrequency: up to 10 times a dayLimits activities: yesAggravating factors: walking, lifting 20 lbs objectsAlleviating factors: restModified [employer] [place] (mMRC) Dyspnea Scale - Grade 2Grade 0 [...] moderate chance of dozing. Ruslan Reid MD [address] [place] [address], [address], [place] [facility] [employer] [facility] [employer] 01/12/2024 11:03:36 10/02/2024 text/html Primary care/Referring provider: MATILDA Coxatigerardo is here to go over her asthma management.Initial development of shortness of breath: 2005Duration of shortness of breath: 20 yearsCondition of shortness of breath: stableTiming of shortness of breath: morning and bedtimeFrequency: up to 8 times a dayLimits activities: yesAggravating factors: walking, lifting 20 lbs objectsAlleviating factors: restModified [employer] [place] (mMRC) Dyspnea Scale - Grade 2Grade 0 [...] moderate chance of dozing. Ruslan Reid MD [address] [place] [address], [address], [place] [facility] [place] [facility] 10/02/2024 12:46:55 OBGyn Episode No OBEpisode recorded.
--- OUTSIDE RECORDS SUMMARY | 2025-06-12 18:03 | XMS_ITS | Clinical Summary ---
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
--- OUTSIDE RECORDS SUMMARY | 2025-06-12 18:03 | XMS_ITS ---
Author Organization [facility] Address [address] [place] [address] Phone Care Team Providers Care Disk Grinder Name Role Phone Mervin Kevin MD Primary Care Provider [phone] Mirtha Chronic Condition Monitoring Status:Enrolled (Active) Program category:Remote Patient Monitoring Start date:01/15/2025 Enrollment date:01/15/2025 Related social drivers of health:Social Connections, Alcohol Use, Tobacco Use, Financial Resource Strain, Stress, Physical Activity,Food Insecurity, Transportation Needs, Housing Stability, Utilities Related service episodes:[facility] Service Episode (Closed) Continued Care and Services Coordination
--- OUTSIDE RECORDS SUMMARY | 2025-06-12 18:03 | XMS_ITS | Clinical Summary ---
Author Organization [facility] Address [address] [place] [address] Care Team Providers Care Field Evidence Technician Name Role Phone Mervin Kevin MD Primary Care Provider [phone] Allergies Active Allergy Reactions Criticality Noted Date Comments Nitrofurantoin Anaphylaxis,Hives,Ot her (See comments),Rash,Shortness of breath,Swelling,Urticari a High 12/29/2017 Nitrofurantoin Monohyd/M-Cryst Other (See comments),Rash High 10/23/2021 Pramipexole Hives Medium 03/25/2017 Hives Medications calcium carbonate-vitam in D3 (Oysco 500/D) [...] tablet (25 mg total) by mouth Active predniSONE (DELTASONE) 20 mg tablet TAKE 2 TABLETS BY MOUTH EVERY DAY FOR 5 DAYS 5 Active traMADoL (ULTRAM) 50 mg tablet TAKE 1-2 TABLETS BY MOUTH EVERY 6 HOURS NEEDED FOR MODERATE OR MORE SEVERE ACUTE PAIN 5 Active Voquezna Dual Darryn 20 mg (28)- 500 mg (84) combo pack as directed as directed 5 Active omeprazole (PriLOSEC) 20 mg capsule TAKE 1 CAPSULE BY MOUTH TWICE A DAY X2 WEEKS 5 Active Active Problems Problem Noted Date Diagnosed Date Urinary frequency 05/13/2025 Portal vein thrombosis 05/13/2025 Paroxysmal atrial fibrillation 05/13/2025 Pathological nipple discharge 05/13/2025 Numbness and tingling of left arm and leg 2024 Nausea & vomiting 05/13/2025 Marijuana smoker 05/13/2025 Hypothyroidism 05/13/2025 Hepatomegaly 05/13/2025 Esophagitis 05/13/2025 Esophagitis with gastritis 05/13/2025 Extremely dense tissue of both breasts on mammog adalberto 05/13/2025 Irritable bowel syndrome with constipation 05/13 Constipation 05/13/2025 Cigarette smoker 05/13/2025 Chronic obstructive pulmonary disease 05/13/2025 Palpable mass of breast 05/13/2025 Breast lump on right side at 2 o'clock position 05/13/2025 Breast lesion 05/13/2025 Bipolar 1 disorder 05/13/2025 Asthma 05/13/2025 Abnormal uterine bleeding (AUB) 05/13/2025 Upper abdominal pain 05/13/2025 Abdominal pain, RUQ 05/13/2025 H. pylori infection 02/04/2025 Gastroesophageal reflux disease 02/04/2025 Acute thrombosis of splenic vein 01/02/2025 Persistent atrial fibrillation 11/21/2024 Nodule of right lung 11/21/2024 History of systemic lupus erythematosus (SLE) Chronic bronchitis 11/21/2024 Severe persistent asthma 02/07/2023 Posterior rhinorrhea 02/07/2023 Spinal stenosis 04/14/2018 History of MRSA infection 04/14/2018 Tobacco dependence 01/12/2018 Seasonal allergies 01/12/2018 History of delivery, currently 01/12/2018 Overview (05/13/2025): Two prior vaginal deliveries Desires trial of labor Anxiety 01/12/2018 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 Neuropathy 12/29/2017 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 Bipolar disease during in third trimes ter 12/29/2017 Overview (05/13/2025): Wellbutrin [Buproprion]: [place] FDA class C. No evidence of teratogenicity. Neonates exposed to this medication in the late 3rd trimester may need respiratory support, tube feeding and/or prolonged hospitalization. They benefit from evaluation for drug discontinuation syndrome and serotonin syndrome. Seroquel: [place] FDA safety category C. Late third trimester exposure is associated with withdrawal symptoms. Recommend 3rd trimester neonatology consult at [facility] due to psychiatric medications, if continued into the 3rd trimester. Asthma affecting , antepartum 8 Anemia 12/29/2017 Encounters Date Type Department Care Team Description 05/13/2025 9:00 AM RAT BREEDER Office Visit [facility] [address] [place] [phone] Pako Bañuelos DO Closed displaced fracture of navicular bone of left foot, initial encounter (Primary Dx); Left ankle instability 04/24/2025 8:48 AM CDT - 04/24/2025 11:59 PM CDT Hospital Encounter [facility] [address] [place] [address] Acute foot pain, left Discharge Disposition: Discharge to home or self care from Last 3 Months Surgical History Surgery [...] on file Legal Sex Female 4:55 AM RAT BREEDER Gender Identity Not on file Sexual Orientation [...] - - Weight 72.1 kg (159 lb) 05/13/2025 9:04 AM RAT BREEDER Height 170.2 cm (5' 7) 05/13/2025 9:04 AM RAT BREEDER Body Mass Index 24.9 05/13/2025 9:04 AM RAT BREEDER Plan of Treatment Health Maintenance Due Date Last Done Comments Depression Screening 1990 Hepatitis C Screening 1990 Varicella Vaccines (1 of 2 - 13+ 2-dose series) 11/23/2003 Hepatitis B Screening 2008 Regular Well Visit/Exam 18-64 2008 HPV Vaccines (1 - 3-dose SCDM series) 2017 Cervical Cancer Screening 11/25/2019 11/24/2018 Pneumococcal vaccine <65 (2 of 2 - PCV) 09/02/2023 09/01/2022 Covid-19 Vaccine (4 - season) 2025 10/09/2021, 04/20/2021, 03/30/2021 Influenza Vaccine (#1) 2025 04/11/2019, 2017 DTaP/Tdap/Td Vaccine (3 - Td or Tdap) 09/05/202905/2020, 04/06/2018 Procedures Procedure Name Priority Date/Time Associated Diagnosis Comments XR FOOT LEFT 3 OR MORE VIEWS Schedule Routine, Read Routine (OP Routine) 04/24/2025 8:53 AM CDT Acute foot pain, left from Last 3 Months Results * XR [...] Electronically signed by: Charles Lopez M.D. Pako Edda DO IMG XR PROCEDURES Final Result from Last 3 Months Insurance [facility] Care Teams Field Evidence Technician Relationship Specialty Start Date End Date Mervin Kevin MD PCP - General Emergency Medicine 02/22/22
== END 2025-06-12 15:40 | disposition home or self-care (01) ==
LOC: ANHLAB 15:40
PROVIDERS: PCP Emergency Medicine; Visit Provider Nurse Practitioner Family
DX: A04.8 Other specified bacterial intestinal infections (principal)
CPT/HCPCS: 83013